=== PATIENT | female | born 1965 | race African-American/Black ===

== ENCOUNTER 2017-12-20 22:57 | Inpatient (IN) | payer OTHER ==
[2017-12-20] MEDS ORDERED: NACL 0.9% 1000 ML 1,000 ML ONE (23:12)
[2017-12-20] MEDS ORDERED: NACL 0.9% 500 ML 500 ML IV ONE (23:31)
[2017-12-20 23:45] LABS: Hematocrit 34.2 % (30.3-42.9); Hemoglobin 11.3 gm/dl (10.1-14.3); Mean Corpuscular HGB Conc 33 % (30-34); Mean Corpuscular Volume 78 fl (79-97); Red Blood Count 4.42 M/mm3 (3.65-5.03); Red Cell Distribution Width 15.7 % (13.2-15.2)
[2017-12-20 23:47] LABS: Mean Corpuscular Hemoglobin 26 pg (28-32); Platelet Count 77 K/mm3 (140-440)
[2017-12-20 23:55] LABS: INR 1.45 (0.87-1.13)
--- NOTE | 2017-12-20 23:58 | Emergency Department Report ---
ED General Adult HPI - General Chief complaint: Hyperglycemia Stated complaint: HBS Time Seen by Provider: 12/20/17 23:56 Source: patient, family, EMS Mode of arrival: Stretcher Limitations: Language Barrier, Altered Mental Status - History of Present Illness Initial comments: 52-year-old woman is brought in by family for feeling weak over the past day or so, with significant history of having nausea vomiting and profuse diarrhea over the past day or so. She is found to be hypotensive at intake, and was brought back for rapid fluid resuscitation, but on further questioning during resuscitation efforts, patient, although , it is translated by family members, who report that she has not had any significant pain, but they felt that she was feverish for the past couple of days, with the nausea and vomiting. She has been trying to rehydrate with Pedialyte, but has been throwing much of this up as well area she has not vomited any blood, she has no melena, and no hematochezia either. Past medical history is significant primarily for type 2 diabetes, controlled with oral medication metformin, and hypertension, with treatment with losartan, and on questioning, family reports that she takes her losartan every day, including today. She has no significant gastrointestinal history, and no recent surgeries. Onset/Timin -: days(s) Severity scale (0 -10): 0 - Related Data Allergies Allergy/AdvReac Type Severity Reaction Status Date / Time No Known Allergies Allergy Unverified 12/20/17 23:19 ED Review of Systems ROS: Stated complaint: HBS Other details as noted in HPI Comment: All other systems reviewed and negative Constitutional: fever, malaise, weakness. denies: chills ENT: denies: ear pain, throat pain Respiratory: denies: cough, shortness of breath, wheezing Cardiovascular: denies: chest pain, palpitations Endocrine: no symptoms reported Gastrointestinal: nausea, vomiting, diarrhea. denies: hematemesis, melena, hematochezia Genitourinary: denies: urgency, dysuria, discharge Musculoskeletal: denies: back pain, joint swelling, arthralgia Skin: lesions (chronic, secondary to diabetes). denies: rash Neurological: weakness. denies: numbness, paresthesias, confusion Psychiatric: denies: anxiety, depression Hematological/Lymphatic: denies: easy bleeding, easy bruising ED Past Medical Hx - Past Medical History Previous Medical History?: Yes Hx Hypertension: Yes Hx Diabetes: Yes (takes metformin) Hx Renal Disease: Yes (Renal issues?) - Surgical History Past Surgical History?: No - Social History Smoking Status: Never Smoker ED Physical Exam - General Limitations: Language Barrier, Altered Mental Status General appearance: other (significantly hypotensive, but awake and responsive,) - Head Head exam: Present: atraumatic, normocephalic - Eye Eye exam: Present: PERRL, EOMI - ENT ENT exam: Present: normal exam - Neck Neck exam: Present: normal inspection, other (no JVD). Absent: tenderness, meningismus, full ROM - Respiratory Respiratory exam: Present: normal lung sounds bilaterally. Absent: respiratory distress - Cardiovascular Cardiovascular Exam: Present: regular rate, normal rhythm. Absent: systolic murmur, diastolic murmur, rubs, gallop - GI/Abdominal GI/Abdominal exam: Present: soft, normal bowel sounds. Absent: distended, tenderness, guarding, rebound - Rectal Rectal exam: Present: deferred - Extremities Exam Extremities exam: Present: normal inspection, full ROM. Absent: tenderness - Neurological Exam Neurological exam: Present: alert, oriented X3, CN II-XII intact. Absent: motor sensory deficit - Psychiatric Psychiatric exam: Present: normal affect, normal mood - Skin Skin exam: Present: dry, rash (chronic skin changes typical of diabetes mellitus ). Absent: erythema, pallor, abrasion, ecchymosis ED Course Vital Signs 12/20/17 12/20/17 12/20/17 23:22 23:30 23:45 Temperature 99.8 F H Temperature [ Intra-Procedure ] Temperature [ Pre-Procedure] Pulse Rate 105 H 105 H 105 H Pulse Rate [ Intra-Procedure ] Pulse Rate [Pre -Procedure] Respiratory 18 18 18 Rate Respiratory Rate [Intra- Procedure] Respiratory Rate [Pre- Procedure] Blood Pressure 59/38 Blood Pressure [Intra- Procedure] Blood Pressure 60/38 62/36 [Left] Blood Pressure [Pre-Procedure] O2 Sat by Pulse 97 99 99 Oximetry O2 Sat by Pulse Oximetry [ Intra-Procedure ] O2 Sat by Pulse Oximetry [Pre- Procedure] 12/20/17 12/21/17 12/21/17 23:57 00:00 00:15 Temperature Temperature [ Intra-Procedure ] Temperature [ Pre-Procedure] Pulse Rate 99 H 98 H 94 H Pulse Rate [ Intra-Procedure ] Pulse Rate [Pre -Procedure] Respiratory 23 15 18 Rate Respiratory Rate [Intra- Procedure] Respiratory Rate [Pre- Procedure] Blood Pressure 62/36 62/36 59/37 Blood Pressure [Intra- Procedure] Blood Pressure 54/33 70/37 [Left] Blood Pressure [Pre-Procedure] O2 Sat by Pulse 100 99 99 Oximetry O2 Sat by Pulse Oximetry [ Intra-Procedure ] O2 Sat by Pulse Oximetry [Pre- Procedure] 12/21/17 12/21/17 12/21/17 00:30 00:45 00:57 Temperature Temperature [ Intra-Procedure ] Temperature [ Pre-Procedure] Pulse Rate 92 H 101 H Pulse Rate [ Intra-Procedure ] Pulse Rate [Pre -Procedure] Respiratory 19 19 20 Rate Respiratory Rate [Intra- Procedure] Respiratory Rate [Pre- Procedure] Blood Pressure 56/35 74/42 Blood Pressure [Intra- Procedure] Blood Pressure 58/36 [Left] Blood Pressure [Pre-Procedure] O2 Sat by Pulse 100 99 99 Oximetry O2 Sat by Pulse Oximetry [ Intra-Procedure ] O2 Sat by Pulse Oximetry [Pre- Procedure] 12/21/17 12/21/17 12/21/17 01:00 01:15 01:30 Temperature Temperature [ Intra-Procedure ] Temperature [ Pre-Procedure] Pulse Rate 99 H 96 H 98 H Pulse Rate [ Intra-Procedure ] Pulse Rate [Pre -Procedure] Respiratory 19 15 11 L Rate Respiratory Rate [Intra- Procedure] Respiratory Rate [Pre- Procedure] Blood Pressure 72/43 68/42 77/42 Blood Pressure [Intra- Procedure] Blood Pressure [Left] Blood Pressure [Pre-Procedure] O2 Sat by Pulse 100 99 100 Oximetry O2 Sat by Pulse Oximetry [ Intra-Procedure ] O2 Sat by Pulse Oximetry [Pre- Procedure] 12/21/17 12/21/17 12/21/17 01:45 02:50 02:57 Temperature Temperature [ 97.8 F Intra-Procedure ] Temperature [ 97.8 F Pre-Procedure] Pulse Rate 97 H Pulse Rate [ 109 H Intra-Procedure ] Pulse Rate [Pre 111 H -Procedure] Respiratory 16 Rate Respiratory 20 Rate [Intra- Procedure] Respiratory 20 Rate [Pre- Procedure] Blood Pressure 73/41 Blood Pressure 85/58 [Intra- Procedure] Blood Pressure [Left] Blood Pressure 82/59 [Pre-Procedure] O2 Sat by Pulse 98 Oximetry O2 Sat by Pulse 100 Oximetry [ Intra-Procedure ] O2 Sat by Pulse 100 Oximetry [Pre- Procedure] 12/21/17 12/21/17 03:03 03:05 Temperature Temperature [ 97.8 F 97.8 F Intra-Procedure ] Temperature [ Pre-Procedure] Pulse Rate Pulse Rate [ 112 H 112 H Intra-Procedure ] Pulse Rate [Pre -Procedure] Respiratory Rate Respiratory 20 20 Rate [Intra- Procedure] Respiratory Rate [Pre- Procedure] Blood Pressure Blood Pressure 92/49 92/49 [Intra- Procedure] Blood Pressure [Left] Blood Pressure [Pre-Procedure] O2 Sat by Pulse Oximetry O2 Sat by Pulse 100 100 Oximetry [ Intra-Procedure ] O2 Sat by Pulse Oximetry [Pre- Procedure] - Reevaluation(s) Reevaluation #1: 12/21/17 03:15 Patient required pressure support as 2 L of saline did not produce any significant improvement of blood pressure, stays in the 77-85 range systolic. Levothroid initiated. Blood cultures drawn, Reevaluation #2: 12/21/17 03:15 Patient is significantly hyperglycemic, but pH is presently stable at 7.3. - Consultations Consultation #1: 12/21/17 03:15 Dr. Wright, hospitalist information security engineer, contacted for patient with uncontrolled hyperglycemia, significant lactic acidosis, and persistent hypotension requiring pressor support. - Central Line Placement Right IJ Consent Obtained: verbal consent Time Out Performed: Yes Patient Placed on Monitor/Pulse Ox: Yes Prep: mask, gown, gloves Central Line Prep: Chlorhexidine scrub Local Anesthesia Used: Lidocaine 1% Amount of Anesthesia Used (mls): 5 Ultrasound Used for Placement: Yes Central Line Lumen Inserted: triple Bloods Obtained for Lab: Yes Central Line Position: sutured in place with 3-0, other (cardiac 2 tries, inadvertent arterial stick on first attempt, treated with pressure) Dressing Applied: Tegaderm Post Procedure X-Ray: tip of catheter in good p Patient Tolerated Procedure: no complications Complications: none, arterial puncture/cannula (with first attempt), hemothorax Additional Comments: Patient tolerated procedure well. ED Medical Decision Making - Lab Data Result diagrams: 12/20/17 23:35 12/21/17 01:11 - Medical Decision Making Patient has severe dehydration, severe and persistent hypotension requiring pressor support, triple-lumen central line placement, and with severe hyperglycemia, requiring insulin drip to control patient's glucose metabolism. - Differential Diagnosis diabetic ketoacidosis, uncontrolled hyperglycemia, severe dehydration, seps Critical Care Time: Yes Critical care time in (mins) excluding proc time.: 75 Critical care attestation.: If time is entered above; I have spent that time in minutes in the direct care of this critically ill patient, excluding procedure time. Critical Care Time: 75 minutes of critical care time was provided and managing patient's severe and persistent hypotension, requiring pressor support, as well as uncontrolled hyperglycemia, independent of the 20 minutes required for placement of right internal jugular triple-lumen central line catheter. ED Disposition Clinical Impression: Diabetic ketoacidosis, Hypotension arterial, Dehydration, Nausea vomiting and diarrhea Disposition: OP ADMIT IP TO THIS HOSP Is pt being admited?: Yes Does the pt Need Aspirin: No Condition: Stable Time of Disposition: 01:30
[2017-12-21 00:01] LABS: Albumin 2.6 g/dL (3.9-5)
[2017-12-21] MEDS ORDERED: NACL 0.9% 1000 ML 1,000 ML ONE ×3 (00:02→04:00)
[2017-12-21] MEDS ORDERED: LEVOPHED DRIP 4 MG/NS 250 ML 4 MG/250 ML BAG IV ONE (00:27)
[2017-12-21] MEDS ORDERED: ZOFRAN ONE (00:27)
[2017-12-21 00:40] LABS: Band Neutrophils # (Manual) 1.4 K/mm3; Basophils % (Manual) 0 % (0.0-1.8); Eosinophils % (Manual) 0 % (0.0-4.3); Myelocytes # (Manual) 0.3 K/mm3; Platelet Estimate Appears Decreased; Total Cells Counted 100
[2017-12-21 00:41] LABS: Hypochromasia 1+
[2017-12-21] MEDS ORDERED: NACL 0.9% 1000 ML 1,000 ML IV ONE ×2 (00:42→00:43)
[2017-12-21] MEDS ORDERED: ZOFRAN IV ONE (00:44)
[2017-12-21] MEDS ORDERED: D50W (25GM) Syringe IV PRN (00:44)
[2017-12-21] MEDS ORDERED: HumuLIN R 100 UNITS in NACL 0.9% 99 ML IV SCH (01:00)
[2017-12-21] MEDS ORDERED: LEVOPHED DRIP 4 MG/NS 250 ML 4 MG/250 ML BAG IV SCH (01:00)
[2017-12-21 01:37] LABS: Calcium 6.4 mg/dL (8.4-10.2)
[2017-12-21] MEDS ORDERED: NACL 0.9% 1000 ML 2,000 ML IV ONE (01:38)
[2017-12-21] MEDS ORDERED: TYLENOL PO PRN (01:58)
[2017-12-21] MEDS ORDERED: TYLENOL PR PRN (01:58)
[2017-12-21] MEDS ORDERED: SODIUM CHLORIDE FLUSH SYRINGE 10 ML IV PRN (01:58)
[2017-12-21] MEDS ORDERED: VANCOMYCIN PHARMACY TO DOSE IV SCH (02:00)
[2017-12-21] MEDS ORDERED: ZOSYN/NS 3.375GM/50ML 3.375 GM/50 ML BAG IV SCH (02:00)
[2017-12-21] MEDS ORDERED: VANCOMYCIN/NS 1 GM/250 ML 1 GM/250 ML BAG IV SCH (02:00)
[2017-12-21] MEDS ORDERED: NACL 0.9% 1000 ML 1,000 ML IV SCH (02:00)
--- NOTE | 2017-12-21 02:00 | History and Physical Report ---
History of Present Illness Date of examination: 12/21/17 History of present illness: 52-year-old woman with a history of hypertension, diabetes comes to emergency room with complaints of fever, nausea vomiting and diarrhea that started yesterday. She's had 4 episodes of diarrhea today, stool is less watery. She also complained of abdominal pain on the left lower quadrant and lower back pain which she describes as sharp pain, intermittent in nature and lasted for a few seconds, intensity 6/10, no radiation, she cannot identify exacerbating or relieving factor. Sons at bedside are translators. The patient took that one dose of antibiotic this morning, she does not know the name of the antibiotic Review of systems Constitutional: no weight loss, chills Ears, eyes, nose, mouth and throat: no nasal congestion, no nasal discharge, no sinus pressure, no vision change, no red eye. Neck: No neck pain or rigidity. Cardiovascular: no chest pain, palpitations Respiratory: No cough, shortness of breath Gastrointestinal: no hematochezia Genitourinary : no dysuria, frequency , no hematuria Musculoskeletal: no joint swelling or muscle ache Integumentary: no rash, no pruritis Neurological: no parathesias, no numbness, no focal weakness Endocrine: no cold or heat intolerance, no polyuria or polydipsia Hematologic/Lymphatic: no easy bruising, no easy bleeding, no gland swelling Allergic/Immunologic: no urticaria, no angioedema. PAST MEDICAL HISTORY: hypertension, diabetes PAST SURGICAL HISTORY: None SOCIAL HISTORY: Denies tobacco, alcohol, drugs FAMILY HISTORY: Hypertension, diabetes Medications and Allergies Allergies Allergy/AdvReac Type Severity Reaction Status Date / Time No Known Allergies Allergy Unverified 12/20/17 23:19 Home Medications Medication Instructions Recorded Confirmed Last Taken Type Losartan/Hydrochlorothiazide 1 each PO DAILY 12/21/17 12/21/17 Unknown History [Losartan-Hctz 50-12.5 mg Tab] glipiZIDE [Glipizide] 5 mg PO BID 12/21/17 12/21/17 Unknown History metFORMIN [Glucophage] 500 mg PO BID 12/21/17 12/21/17 Unknown History Active Meds: Active Medications Dextrose (D50w (25gm) Syringe) 0 ml IV ONCE PRN PRN Reason: Hypoglycemia Norepinephrine (Levophed Drip 4 Mg/Ns 250 Ml) 4 mg in 250 mls @ 7.5 mls/hr IV TITR LO; Protocol Insulin Human Regular 100 (units/ Sodium Chloride) 100 mls @ 1 mls/hr IV TITR LO; Protocol Piperacillin Sod/Tazobactam Sod (Zosyn/Ns 3.375gm/50ml) 3.375 gm in 50 mls @ 100 mls/hr IV Q8H LO; Protocol Sodium Chloride (Nacl 0.9% 1000 Ml) 2,000 mls @ 999 mls/hr IV BOLUS ONE Stop: 12/21/17 03:38 Vancomycin HCl (Vancomycin/Ns 1 Gm/250 Ml) 1 gm in 250 mls @ 167.007 mls/hr IV ONCE LO; Protocol Vancomycin HCl (Vancomycin Pharmacy To Dose) 1 each IV PKCONSULT LO Exam - Physical Exam Narrative exam: Gen. appearance: Patient lying in bed, no apparent distress HEENT: Normocephalic, atraumatic, pupils equally round and reactive to light, extraocular movement intact, and no sclericterus,. No JVD or thyromegaly or nodule,neck supple, no carotid bruit ,mucous membranes dry, no exudate or erythema Heart: S1, S2, regular rate and rhythm Lungs: Clear to auscultation bilaterally, breathing comfortable Abdomen: Positive bowel sounds, nontender, nondistended, no organomegaly Extremity: No edema, cyanosis, clubbing Skin: No rash, nodules, warm, dry Neuro: Oriented 3, cranial nerves II-12 intact, speech is fluent, motor and sensory intact - Constitutional Vitals: Temp Pulse Resp BP Pulse Ox 99.8 F H 97 H 16 73/41 98 12/20/17 23:22 12/21/17 01:45 12/21/17 01:45 12/21/17 01:45 12/21/17 01:45 Results - Labs CBC & Chem 7: 12/30/17 05:30 12/30/17 05:30 Labs: Abnormal lab results 12/20/17 12/20/17 12/20/17 Range/Units 23:35 23:35 23:35 MCV 78 L (79-97) fl MCH 26 L (28-32) pg RDW 15.7 H (13.2-15.2) % Plt Count 77 L (140-440) K/mm3 Seg Neuts % (Manual) 76.0 H (40.0-70.0) % Lymphocytes % (Manual) 6.0 L (13.4-35.0) % Seg Neutrophils # Man 8.2 H (1.8-7.7) K/mm3 Lymphocytes # (Manual) 0.6 L (1.2-5.4) K/mm3 PT 18.5 H (12.2-14.9) Sec. INR 1.45 H (0.87-1.13) Sodium 130 L (137-145) mmol/L Potassium 3.5 L (3.6-5.0) mmol/L Chloride 92.3 L (98-107) mmol/L Carbon Dioxide 17 L (22-30) mmol/L BUN 27 H (7-17) mg/dL Creatinine 2.2 H (0.7-1.2) mg/dL Glucose 535 H* (65-100) mg/dL Lactic Acid (0.7-2.0) mmol/L Calcium 7.0 L (8.4-10.2) mg/dL Phosphorus (2.5-4.5) mg/dL Magnesium (1.7-2.3) mg/dL Alkaline Phosphatase 173 H (35-129) units/L Total Protein 5.1 L (6.3-8.2) g/dL Albumin 2.6 L (3.9-5) g/dL 18 18 /18 Range/Units 23:35 01:11 01:11 MCV (79-97) fl MCH (28-32) pg RDW (13.2-15.2) % Plt Count (140-440) K/mm3 Seg Neuts % (Manual) (40.0-70.0) % Lymphocytes % (Manual) (13.4-35.0) % Seg Neutrophils # Man (1.8-7.7) K/mm3 Lymphocytes # (Manual) (1.2-5.4) K/mm3 PT (12.2-14.9) Sec. INR (0.87-1.13) Sodium 133 L (137-145) mmol/L Potassium 3.3 L (3.6-5.0) mmol/L Chloride 97.9 L (98-107) mmol/L Carbon Dioxide 15 L (22-30) mmol/L BUN 26 H (7-17) mg/dL Creatinine 2.1 H (0.7-1.2) mg/dL Glucose (65-100) mg/dL Lactic Acid 8.30 H* (0.7-2.0) mmol/L Calcium 6.4 L (8.4-10.2) mg/dL Phosphorus 1.90 L (2.5-4.5) mg/dL Magnesium 1.30 L (1.7-2.3) mg/dL Alkaline Phosphatase (35-129) units/L Total Protein (6.3-8.2) g/dL Albumin (3.9-5) g/dL - Imaging and Cardiology EKG: image reviewed Chest x-ray: image reviewed Assessment and Plan Assessment Septic shock Abdominal pain DKA UTI Renal failure, probably acute Gastroenteritis, viral Thrombocytopenia Plan Admit to medicine Start IV fluid, IV Zosyn, vancomycin, follow cultures Obtain CAT scan of the abdomen and pelvis Initiated DKA protocol with IV fluids, insulin drip Monitor serial fingerstick, electrolyte Check stool studies Consult critical care DVT prophylaxis
[2017-12-21 02:32] LABS: Bacteria,Urine 2+ /HPF (Negative); Bilirubin,Urine NEG (Negative); Blood,Urine NEG (Negative); Color,Urine Yellow (Yellow); Protein,Urine <15 mg/dL mg/dL (Negative); Urobilinogen,Urine < 2.0 mg/dL (<2.0)
[2017-12-21] MEDS ORDERED: VANCOMYCIN 1,250 MG in NACL 0.9% 250ML 250 ML IV ONE (03:00)
[2017-12-21] MEDS ORDERED: K-DUR PO ONE (04:43)
[2017-12-21] MEDS ORDERED: D5/0.45NS 1,000 ML IV SCH ×2 (05:00→23:45)
[2017-12-21] MEDS: LEVOPHED DRIP 4 MG/NS 250 ML 4 MG/250 ML BAG IV SCH ×4 (08:17→23:42)
[2017-12-21 09:20] LABS: Calcium 6.2 mg/dL (8.4-10.2)
[2017-12-21] MEDS: ZOFRAN IV PRN ×2 (09:21→17:35)
[2017-12-21] MEDS: SODIUM CHLORIDE FLUSH SYRINGE 10 ML IV SCH ×3 (09:21→21:27)
[2017-12-21] MEDS ORDERED: MAGNESIUM SULFATE IV ONE (09:30)
[2017-12-21] MEDS: MORPHINE IV PRN (09:45)
[2017-12-21] MEDS ORDERED: LOVENOX SUB-Q SCH (10:00)
--- NOTE | 2017-12-21 10:38 | Consultation ---
History of Present Illness Consult date: 12/21/17 Requesting physician: SHELBY STILES Reason for consult: other (Severe Sepsis; DKA; Thrombocytopenia) History of present illness: PULMONARY/CCM CONSULT NOTE (full dictation # [id number]) Please see dictated notes for full details Medications and Allergies Allergies Allergy/AdvReac Type Severity Reaction Status Date / Time No Known Allergies Allergy Unverified 12/20/17 23:19 Home Medications Medication Instructions Recorded Confirmed Last Taken Type Losartan/Hydrochlorothiazide 1 each PO DAILY 12/21/17 12/21/17 Unknown History [Losartan-Hctz 50-12.5 mg Tab] glipiZIDE [Glipizide] 5 mg PO BID 12/21/17 12/21/17 Unknown History metFORMIN [Glucophage] 500 mg PO BID 12/21/17 12/21/17 Unknown History Active Meds: Active Medications Acetaminophen (Tylenol) 650 mg PO Q4H PRN PRN Reason: Pain MILD(1-3)/Fever >100.5/CHAVEZ Acetaminophen (Tylenol) 650 mg IN Q4H PRN PRN Reason: Pain MILD(1-3)/Fever >100.5/CHAVEZ Dextrose (D50w (25gm) Syringe) 0 ml IV ONCE PRN PRN Reason: Hypoglycemia Norepinephrine (Levophed Drip 4 Mg/Ns 250 Ml) 4 mg in 250 mls @ 7.5 mls/hr IV TITR LO; Protocol Last Titration: 12/21/17 10:18 Dose: 14 mcg/min, 52.5 mls/hr Insulin Human Regular 100 (units/ Sodium Chloride) 100 mls @ 1 mls/hr IV TITR LO; Protocol Last Titration: 12/21/17 10:20 Dose: 2 units/hr, 2 mls/hr Sodium Chloride (Nacl 0.9% 1000 Ml) 1,000 mls @ 150 mls/hr IV DIRECT LO Last Admin: 12/21/17 04:03 Dose: 150 mls/hr Dextrose/Sodium Chloride (D5/0.45ns) 1,000 mls @ 150 mls/hr IV DIRECT LO Piperacillin Sod/Tazobactam Sod (Zosyn/Ns 2.25 Gm/50ml) 2.25 gm in 50 mls @ 100 mls/hr IV Q6HR LO Magnesium Sulfate (Magnesium Sulfate 2gm/50ml) 2 gm in 50 mls @ 25 mls/hr IV ONCE ONE Stop: 12/21/17 12:59 Last Admin: 12/21/17 10:31 Dose: 25 mls/hr Potassium Chloride 20 meq/ (Dextrose) 1,010 mls @ 125 mls/hr IV DIRECT LO Morphine Sulfate (Morphine) 2 mg IV Q4H PRN PRN Reason: Pain, Moderate (4-6) Ondansetron HCl (Zofran) 4 mg IV Q4H PRN PRN Reason: Nausea And Vomiting Last Admin: 12/21/17 09:21 Dose: 4 mg Sodium Chloride (Sodium Chloride Flush Syringe 10 Ml) 10 ml IV BID LO Last Admin: 12/21/17 09:21 Dose: 10 ml Sodium Chloride (Sodium Chloride Flush Syringe 10 Ml) 10 ml IV PRN PRN PRN Reason: LINE FLUSH Vancomycin HCl (Vancomycin Pharmacy To Dose) 1 each IV PKCONSULT LO Physical Examination Vital signs: Vital Signs Temp Pulse Resp BP Pulse Ox 99.8 F H 105 H 18 59/38 97 12/20/17 23:22 12/20/17 23:22 12/20/17 23:22 12/20/17 23:22 12/20/17 23:22 Results - Laboratory Findings CBC and BMP: 12/20/17 23:35 12/21/17 08:44 PT/INR, D-dimer PT 18.5 Sec. (12.2-14.9) H 12/20/17 23:35 INR 1.45 (0.87-1.13) H 12/20/17 23:35 Abnormal lab findings: Abnormal Labs 12/20/17 12/20/17 12/20/17 23:35 23:35 23:35 MCV 78 L MCH 26 L RDW 15.7 H Plt Count 77 L Seg Neuts % (Manual) 76.0 H Lymphocytes % (Manual) 6.0 L Seg Neutrophils # Man 8.2 H Lymphocytes # (Manual) 0.6 L PT 18.5 H INR 1.45 H Sodium 130 L Potassium 3.5 L Chloride 92.3 L Carbon Dioxide 17 L BUN 27 H Creatinine 2.2 H Glucose 535 H* POC Glucose Lactic Acid Calcium 7.0 L Phosphorus Magnesium Alkaline Phosphatase 173 H Total Protein 5.1 L Albumin 2.6 L Urine WBC (Auto) 12/20/17 12/21/17 12/21/17 23:35 01:11 01:11 MCV MCH RDW Plt Count Seg Neuts % (Manual) Lymphocytes % (Manual) Seg Neutrophils # Man Lymphocytes # (Manual) PT INR Sodium Potassium Chloride Carbon Dioxide BUN Creatinine Glucose POC Glucose Lactic Acid 8.30 H* 8.10 H* Calcium Phosphorus 1.90 L Magnesium 1.30 L Alkaline Phosphatase Total Protein Albumin Urine WBC (Auto) 12/21/17 12/21/17 12/21/17 01:11 01:50 02:09 MCV MCH RDW Plt Count Seg Neuts % (Manual) Lymphocytes % (Manual) Seg Neutrophils # Man Lymphocytes # (Manual) PT INR Sodium 133 L Potassium 3.3 L Chloride 97.9 L Carbon Dioxide 15 L BUN 26 H Creatinine 2.1 H Glucose 504 H* POC Glucose 391 H Lactic Acid Calcium 6.4 L Phosphorus Magnesium Alkaline Phosphatase Total Protein Albumin Urine WBC (Auto) 38.0 H 12/21/17 12/21/17 12/21/17 03:10 03:26 05:15 MCV MCH RDW Plt Count Seg Neuts % (Manual) Lymphocytes % (Manual) Seg Neutrophils # Man Lymphocytes # (Manual) PT INR Sodium 135 L Potassium 3.3 L Chloride Carbon Dioxide 14 L BUN 25 H Creatinine 1.9 H Glucose 443 H POC Glucose 389 H 407 H Lactic Acid Calcium 6.0 L Phosphorus Magnesium Alkaline Phosphatase Total Protein Albumin Urine WBC (Auto) 12/21/17 12/21/17 12/21/17 06:00 06:00 08:44 MCV MCH RDW Plt Count Seg Neuts % (Manual) Lymphocytes % (Manual) Seg Neutrophils # Man Lymphocytes # (Manual) PT INR Sodium Potassium 3.4 L 3.3 L Chloride 107.8 H Carbon Dioxide 12 L 14 L BUN 28 H 29 H Creatinine 1.9 H 2.0 H Glucose 283 H 140 H POC Glucose Lactic Acid 7.90 H* Calcium 6.0 L 6.2 L Phosphorus Magnesium Alkaline Phosphatase Total Protein Albumin Urine WBC (Auto) 12/21/17 08:44 MCV MCH RDW Plt Count Seg Neuts % (Manual) Lymphocytes % (Manual) Seg Neutrophils # Man Lymphocytes # (Manual) PT INR Sodium Potassium Chloride Carbon Dioxide BUN Creatinine Glucose POC Glucose Lactic Acid 6.40 H* Calcium Phosphorus Magnesium Alkaline Phosphatase Total Protein Albumin Urine WBC (Auto)
[2017-12-21] MEDS ORDERED: MAGNESIUM SULFATE 2GM/50ML 2 GM/50 ML BAG IV ONE (11:00)
[2017-12-21] MEDS ORDERED: PEPCID IV SCH (12:00)
[2017-12-21] MEDS ORDERED: KCL 20 MEQ in D5W 1,000 ML IV SCH (12:30)
[2017-12-21 12:54] LABS: Hepatitis A Antibody IgM Non-Reactive (NonReactive); Hepatitis B Core IgM Non-Reactive (NonReactive); Hepatitis B Surface Antigen Non-Reactive (Negative); Hepatitis C Virus Antibody Non-Reactive (NonReactive)
[2017-12-21] MEDS: ZOSYN/NS 2.25 GM/50ML 2.25 GM/50 ML BAG IV SCH ×2 (13:49→18:29)
--- NOTE | 2017-12-21 14:03 | Cat Scan Report ---
FINAL REPORT PROCEDURE: CT ABDOMEN PELVIS WO CON TECHNIQUE: Computerized axial tomography of the abdomen and pelvis was performed without intravenous contrast. This study is performed without intravascular contrast material and its sensitivity for abdominal and pelvic pathology, including neoplasms, inflammation, abscess, free fluid, thrombosis, arterial dissection and infarction, is reduced compared with a contrast enhanced study. HISTORY: back/abd pain COMPARISON: No prior studies are available for comparison. FINDINGS: Visualized lower thorax: There are bibasilar infiltrates. There are small pleural effusions. Liver: Liver is enlarged and fatty.. Spleen: Normal size and attenuation. Gallbladder and biliary system: Normal. Pancreas: Normal. Adrenals: Normal. Kidneys: The right kidney and ureter are unremarkable. There is left hydronephrosis and hydroureter. There is air in the left ureter and left renal collecting system. This could be evidence of infection. No stones are seen.. GI tract: There is no bowel obstruction, colitis or enteritis. The appendix is normal.. Lymph nodes and mesentery: Normal. Vasculature: Normal. Bladder: Normal. Reproductive organs: Uterus and ovaries are unremarkable.. Peritoneum: There is mild ascites. There is no free air.. Musculoskeletal structures: No significant abnormality. Other: There are borderline enlarged mesenteric and retroperitoneal lymph nodes. There are enlarged inguinal lymph nodes greater on the right. IMPRESSION: There are bibasilar infiltrates. There are small pleural effusions. Liver is enlarged and fatty.. The right kidney and ureter are unremarkable. There is left hydronephrosis and hydroureter. There is air in the left ureter and left renal collecting system. This could be evidence of infection. No stones are seen.. There is no bowel obstruction, colitis or enteritis. The appendix is normal.. Uterus and ovaries are unremarkable.. There is mild ascites. There is no free air.. There are borderline enlarged mesenteric and retroperitoneal lymph nodes. There are enlarged inguinal lymph nodes greater on the right. .
--- NOTE | 2017-12-21 14:03 | XRay Report ---
FINAL REPORT EXAM: XRAY CHEST SINGLE VIEW HISTORY: Post central line placement COMPARISON: December 20, 2017. FINDINGS: Frontal view(s) of the chest obtained. Stable mild cardiac enlargement. Right IJ line is in place. Distal tip projects over the junction of the SVC and right atrium in satisfactory position. No focal lucency to suggest pneumothorax. Mild central prominence of the pulmonary vasculature. No large consolidation or effusion. IMPRESSION: Right IJ line in gross satisfactory position. Mild central congestion.
--- NOTE | 2017-12-21 14:04 | XRay Report ---
FINAL REPORT EXAM: XRAY CHEST SINGLE VIEW HISTORY: Possible sepsis TECHNIQUE: Single AP portable radiograph of the chest was obtained. PRIORS: None. FINDINGS: There is no lobar consolidation. Subtle left cardiac opacities are present. No large pleural effusion. No pneumothorax. Cardiac silhouette and mediastinal structures are unremarkable. No acute osseous abnormality identified. IMPRESSION: Subtle left retrocardiac opacities which may represent atelectasis or early infiltrate. Consider PA/lateral chest radiographs if clinical concern. No lobar consolidation, pleural effusion or evidence of congestive heart failure.
[2017-12-21 14:25] LABS: Creatine Kinase MB 3.9 ng/mL (0.0-4.0)
[2017-12-21 14:37] LABS: Chol/HDL Ratio 5.7 %
--- NOTE | 2017-12-21 16:05 | Event Note ---
Date: 12/21/[address] scan. 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 No emphysematous pyelonephritis. No calculi. Emphysematous urinary conditions are highly associated with poorly controlled diabetes. Patient is improving, but still critically ill. Usually emphysematous pyelitis can be treated with broad spectrum antibiotics, amin placement, and control of underlying diabetes. Discussed with Dr. Weber. Not optimal candidate for nephrostomy tube due to minimally distented collecting system and thrombocytopenia. In addition, emphysematous pyelitis does not usually require nephrostomy tube placement. Will follow with urology and medicine.
--- NOTE | 2017-12-21 17:17 | Event Note ---
Date: 12/21/17 Continue current treatment, discussed with IR and urology. Will place amin. Monitor cultures. Transition to long acting insulin once improved.
[2017-12-21 18:18] LABS: Calcium 6.6 mg/dL (8.4-10.2)
[2017-12-21] MEDS: PEPCID IV SCH (21:27)
[2017-12-22] MEDS: ZOSYN/NS 2.25 GM/50ML 2.25 GM/50 ML BAG IV SCH ×3 (00:06→11:20)
[2017-12-22] MEDS ORDERED: SODIUM BICARBONATE 150 MEQ in D5W 1,000 ML IV ONE (00:39)
[2017-12-22] MEDS: ZOFRAN IV PRN (01:40)
--- NOTE | 2017-12-22 02:41 | Consultation ---
PULMONARY CRITICAL CARE CONSULT NOTE CONSULTING PHYSICIAN: Lesly Wright MD. REASON FOR CONSULTATION: Essentially severe sepsis, diabetic ketoacidosis. CHIEF COMPLAINT AND HISTORY OF PRESENT ILLNESS: The patient is a 52-year-old female with past medical history significant for a diagnosis of diabetes, who was brought in by family to the Emergency Room due to increasing lethargy, weakness over about 1-2 days. She had been having nausea, vomiting and profuse diarrhea. In the ER, she was found to be hypotensive. She complained of some abdominal pain. She had some subjective fevers. They denied any hematochezia or any hematemesis. They denied any sick contacts. They denied any cough or expectoration. She was evaluated in the Emergency Room and essentially found to be septic and hypotensive. She was hyperglycemic and mildly acidotic. She was admitted to the Intensive Care Unit for further evaluation where I stopped by to see her. When I stopped by to see her, she was lying in bed. She was moaning. She was easily arousable, able to respond to my questions. She denied any history of tobacco use or abuse. She denied any dysuria. They deny any open wounds or sores on her body or any suggestion of like an infection that may have pushed her into this particular presentation. They deny any recent hospitalizations. She denies any hospitalizations recently. No sick contacts at home. She does have three kids. None of them have diarrhea or similar type symptoms. She denies any cuts or injuries to her body. This really is as much of the history of presentation as I have. PAST MEDICAL HISTORY: Diabetes, hypertension. She is slightly obese. PAST SURGICAL HISTORY: Denies. MEDICATIONS: She was on at the time I stopped by to see were reviewed, pertinent medications include the following: She was on Tylenol 650 mg p.o. q. 4 hours p.r.n. mild pain. She was on a D5 NS drip about to begin with 20 of K per liter. She was on an insulin drip, I believe 2 units per hour. She received 2 g of magnesium sulfate in the Emergency Room. She was on a Levophed drip going on 8 mcg per minute, Zofran 4 mg IV q. 4 hours p.r.n. nausea and vomiting, Zosyn 2.25 grams IV q. 6 hours. She received 1 dose of vancomycin. ALLERGIES: No known drug allergies. DIET: Slightly obese. Denies acute weight loss or gain in the preceding few weeks to months, remains n.p.o. now. FAMILY AND SOCIAL HISTORY: Significant for hypertension and diabetes. She denied alcohol, tobacco, or illicit drug use or abuse. REVIEW OF SYSTEMS: Denies any loss of consciousness. She has been very weak, but no overt syncope, no gross hematochezia or melena. No gross hematuria or dysuria. No hematemesis. No hemoptysis, no palpitations. Denies polyuria or polydipsia. Denies heat or cold intolerance. Denies any new lumps, bumps, or swellings on her body. Complete 13-system review of systems obtained. Pertinent positives and/or negatives as in body of history above, otherwise noncontributory. PHYSICAL EXAMINATION: GENERAL: At presentation, she had a low grade fever. VITAL SIGNS: Temperature 99.8 degrees Fahrenheit, pulse 105, respiratory rate 18, blood pressure was as low as 59/38, oxygen sats 97%. At the time I saw her, she was on 4 liters nasal cannula with O2 sats about 95%. Blood pressure 81/47. GENERAL: Well-built short statured, I believe, female, normocephalic, atraumatic, talking to me. Slightly interrupted sentences, moaning occasionally in mild respiratory distress. HEAD, EYES, EARS, NOSE AND THROAT: She is anicteric. No conjunctival erythema. Oropharynx is a Mallampati #2. Oropharynx is dry. Grossly, no palpable lymph nodes in the supraclavicular or submandibular lymph node chains. She has a right IJ line in place. No significant bleeding around the stoma. No thyromegaly. LUNGS: Auscultation of both lung jett significant only for diminished bilateral breath sounds, however, clear. HEART: Heart sounds 1 and 2 are heard. At the time of my evaluation, they were regular in rate and rhythm. No rubs or murmurs. ABDOMEN: Soft. Bowel sounds are positive. Mild diffuse tenderness, no palpable hepatosplenomegaly. EXTREMITIES: Without overt digital clubbing, cyanosis, or pedal edema. Dorsalis pedis pulses are palpable bilaterally. NEUROLOGIC: Pupils equal, round, about 4 mm, reactive to light. Extraocular muscle movements are intact. She moves all 4 extremities spontaneously. The skin is of normal turgor. She has macular type of rash to her skin that is longstanding according to the family, nothing acute. It is nontender. It is hyperpigmented type of rash. Not raised. Otherwise, no cellulitis, no rash. LABORATORY DATA: From my review are as follows: White cell count 10,800, hemoglobin 11.3, hematocrit 34.2, platelet count was low at 77. INR was 1.45. Serum sodium is 130, potassium 3.5, chloride 92, bicarbonate 17, BUN 27, creatinine 2.2 and a glucose of 535. Lactic acid level was 8.3 at presentation. Phosphorus low at 1.9. Magnesium low at 1.3. Albumin was low at 2.6. Urinalysis showed small leukocyte esterase, 38 white cells per high power field, 2+ bacteremia, C. diff toxin assay was negative. Blood cultures no growth to date. Stool has been sent for studies. Chest x-ray was done. I have reviewed the chest x-ray as well as a CT of the abdomen and pelvis. Chest x-ray essentially normal chest x-ray for her age, borderline cardiomegaly, no pneumothorax, no gross bony fracture. It is slightly over penetrated. A CT of the abdomen and pelvis was done. I do not have the report on the CT yet. The lung windows show dependent atelectasis plus or minus small effusions. I cannot rule out a small pericardial effusion. Otherwise, I do not see any major pathology. I certainly do not see any free air in the peritoneum and the peritoneal cavity that I can make out. I am awaiting the official report. ASSESSMENT: 1. Severe sepsis with shock. 2. Hyperglycemia and mild diabetic ketoacidosis. 3. Possible urinary tract infection. 4. Nausea and vomiting. 5. Diarrhea. 6. Metabolic acidosis. 7. Hypophosphatemia. 8. Hypomagnesemia. 9. Acute kidney injury, possibly on chronic. 10. Thrombocytopenia. PLAN: I must say that I am a little bit bothered by the thrombocytopenia, the hypomagnesemia, and slightly elevated INR. It may point to stigmata of alcohol abuse. She tells me that she is not much of a drinker, but I think we will have to keep a close eye out for any signs of alcohol withdrawal in this lady. From a respiratory standpoint, we will continue supplemental oxygen to keep sats greater than or equal to about 90%. Aspiration precautions will be maintained. There may be an element of mild interstitial edema at place, so I will watch her closely for the development of acute pulmonary edema. As mentioned, the CT abdomen suggest possibly mild pericardial effusion. We will consider a 2D echocardiogram depending on her clinical progress. For now, we will get central venous pressure monitoring and trended as necessary. Electrolytes are being replaced. She is under the DKA protocol. Azotemia will be watched closely. Hopefully, with rehydration that improves. She has been pancultured. We will continue empiric antibiotic therapy. I note the normal white cell count. I will get a CRP level to better help make clinical decisions down the road. We will also trend the lactic acid level. C. diff assay was negative. We will go with current broad-spectrum antibiotic therapies for now. Inputs and outputs will be monitored closely. Bronchodilators will be on a p.r.n. basis. Flu and pneumonia vaccinations will be addressed per protocol. We will continue to wean Levophed to keep MAP greater than or equal to about 65 mmHg. Again, I will conservatively resuscitate her with volume as I am bothered that she may develop some pulmonary edema. I expect the BMP level probably be raised, elevated at this time. Flu and pneumonia vaccination will be per protocol. Thank you very much for the consult Dr. Wright. We will follow along. We will make further recommendations as picture progresses/becomes clearer. At this time, I have spent about 35-40 minutes of critical care time without overlap and excluding any procedural time that may be necessary. She is critically ill on life-sustaining interventions including vasopressors and at high risk for decompensation in the respiratory and cardiovascular system including . JOB# [id number] NIKIA/DERRICK MORGAN
[2017-12-22] MEDS: LEVOPHED DRIP 4 MG/NS 250 ML 4 MG/250 ML BAG IV SCH ×5 (03:36→20:24)
[2017-12-22 04:58] LABS: Hematocrit 35.1 % (30.3-42.9); Hemoglobin 11.4 gm/dl (10.1-14.3); Mean Corpuscular HGB Conc 32 % (30-34); Mean Corpuscular Volume 77 fl (79-97); Red Blood Count 4.56 M/mm3 (3.65-5.03); Red Cell Distribution Width 16.6 % (13.2-15.2)
[2017-12-22 05:22] LABS: Mean Corpuscular Hemoglobin 25 pg (28-32); Platelet Count 57 K/mm3 (140-440)
[2017-12-22 05:48] LABS: Calcium 6.4 mg/dL (8.4-10.2)
--- NOTE | 2017-12-22 08:15 | Progress Note ---
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 MARLENE Left Hydronephrosis Fatty Liver Skin rash Acute encephalopathy Gastroenteritis, viral Thrombocytopenia -NIPPV for work of breathing and for adjustment of minute ventilation for better acid-base -Continue with vasopressor support, keep MAP>65 -Add gram negative edilia coverage to therapy -VTE prophylaxis -Supplemental oxygen to keep O2 sats>90% -Agitation management -Accucheck with glycemic control -Insulin infusion and DKA treatment per protocol -Addressed all critical care bundles Discussed in detail with the at the bedside The high probability of a clinically significant, sudden or life threatening deterioration of the [pulmonary, Renal, infectious, cardiovascular ] system(s) required my full and direct attention, intervention and personal management. The aggregate critical care time was [35] minutes. This time is in addition to time spent performing reported procedures but includes the following: [X] Data Review and interpretation [X] Patient assessment and monitoring of vital signs [X] Documentation [X] Medication orders and management Subjective Date of service: 12/22/17 Principal diagnosis: Severe sepsis wwith septic shock, acute encephalopathy, Interval history: Seen and examined. Vitals, labs, medications, chart reviewed, at the bedside On going confusion, tachypnea and severe acidosis. 24 hour events reviewed. Discussed in ICU-IDT rounds Objective - Exam Narrative Exam: VITAL SIGNS: Reviewed. GENERAL: The patient appeared well nourished and normally developed although was lethargic. Vital signs as documented. HEAD: No signs of head trauma. EYES: Pupils are equal. Extraocular motions intact. EARS: Hearing grossly intact. MOUTH: Oropharynx is normal. NECK: No adenopathy, no JVD. CHEST: Chest with diminished breath sounds bilaterally. No wheezes, rales, or rhonchi. CARDIAC: Regular rate and rhythm. S1 and S2, without murmurs, gallops, or rubs. VASCULAR: No Edema. Peripheral pulses normal and equal in all extremities. ABDOMEN: Soft, without detectable tenderness. No sign of distention. No rebound or guarding, and no masses palpated. Bowel Sounds normal. MUSCULOSKELETAL: Good range of motion of all major joints. Extremities without clubbing, cyanosis or edema. NEUROLOGIC EXAM: Lethargic but arousable. No focal sensory or strength deficits. PSYCHIATRIC: Mood normal. SKIN: Multiple healed hyperpigmented maculopapular rash lesions covering the extremities Vital Signs - 12hr 12/21/17 12/21/17 12/21/17 20:30 20:45 21:00 Temperature Pulse Rate 126 H 130 H 125 H Respiratory 25 H 25 H 25 H Rate Blood Pressure 123/84 113/78 117/69 O2 Sat by Pulse 92 93 93 Oximetry 12/21/17 12/21/17 12/21/17 21:15 21:24 21:30 Temperature Pulse Rate 124 H 130 H 127 H Respiratory 21 38 H 23 Rate Blood Pressure 121/77 113/78 127/87 O2 Sat by Pulse 95 92 94 Oximetry 12/21/17 12/21/17 12/21/17 21:46 22:00 22:05 Temperature Pulse Rate 127 H 123 H 114 H Respiratory 24 21 16 Rate Blood Pressure 122/77 123/74 115/50 O2 Sat by Pulse 95 94 98 Oximetry 12/21/17 12/21/17 12/21/17 22:15 22:30 22:45 Temperature Pulse Rate 120 H 121 H 125 H Respiratory 24 22 22 Rate Blood Pressure 104/68 111/67 110/53 O2 Sat by Pulse 94 93 92 Oximetry 12/21/17 12/21/17 12/21/17 23:00 23:15 23:30 Temperature Pulse Rate 124 H 127 H 119 H Respiratory 20 12 25 H Rate Blood Pressure 110/53 115/50 92/47 O2 Sat by Pulse 86 88 100 Oximetry 12/21/17 12/21/17 12/22/17 23:46 23:54 00:00 Temperature 98.4 F Pulse Rate 113 H 116 H Respiratory 20 18 Rate Blood Pressure 81/34 95/54 O2 Sat by Pulse 94 Oximetry 12/22/17 12/22/17 12/22/17 00:15 00:29 00:30 Temperature Pulse Rate 118 H 116 H 117 H Respiratory 25 H 18 26 H Rate Blood Pressure 81/45 81/45 81/52 O2 Sat by Pulse 99 99 100 Oximetry 12/22/17 12/22/17 12/22/17 00:45 01:01 01:15 Temperature Pulse Rate 120 H 128 H 113 H Respiratory 27 H 18 24 Rate Blood Pressure 81/52 81/52 142/70 O2 Sat by Pulse 100 88 98 Oximetry 06/12/0412/22/17 12/22/17 01:30 01:45 02:00 Temperature Pulse Rate 120 H 121 H 121 H Respiratory 19 25 H 22 Rate Blood Pressure 105/67 115/73 123/69 O2 Sat by Pulse 99 99 98 Oximetry 12/22/17 12/22/17 12/22/17 02:15 02:28 02:31 Temperature Pulse Rate 118 H 115 H 112 H Respiratory 20 15 Rate Blood Pressure 111/64 101/61 O2 Sat by Pulse 99 Oximetry 12/22/17 12/22/17 12/22/17 02:45 03:00 03:15 Temperature Pulse Rate 115 H 121 H 120 H Respiratory 24 16 27 H Rate Blood Pressure 102/70 102/70 101/77 O2 Sat by Pulse 100 98 97 Oximetry 12/22/17 12/22/17 12/22/17 03:25 03:30 03:45 Temperature 98.6 F Pulse Rate 121 H 118 H Respiratory 20 23 Rate Blood Pressure 107/68 96/56 O2 Sat by Pulse 95 95 Oximetry 12/22/17 12/22/17 12/22/17 04:00 04:15 04:30 Temperature Pulse Rate 114 H 116 H 110 H Respiratory 19 22 22 Rate Blood Pressure 103/61 96/48 105/61 O2 Sat by Pulse 95 91 95 Oximetry 12/22/17 12/22/17 12/22/17 04:45 05:00 05:15 Temperature Pulse Rate 119 H 124 H 117 H Respiratory 16 27 H 19 Rate Blood Pressure 110/69 120/72 129/70 O2 Sat by Pulse 94 94 96 Oximetry 12/22/17 05:30 Temperature Pulse Rate 127 H Respiratory 22 Rate Blood Pressure 146/83 O2 Sat by Pulse 93 Oximetry CBC and BMP: 12/27/17 06:40 12/28/17 05:00 ABG, PT/INR, D-dimer: ABG POC ABG pH 7.241 (7.35-7.45) L 12/22/17 00:29 POC ABG pCO2 28.1 (35-45) L 12/22/17 00:29 POC ABG pO2 113 (80-105) H 12/22/17 00:29 POC ABG HCO3 12.1 12/22/17 00:29 POC ABG Total CO2 13 12/22/17 00:29 POC ABG O2 Sat 98 12/22/17 00:29 PT/INR, D-dimer PT 18.5 Sec. (12.2-14.9) H 12/20/17 23:35 INR 1.45 (0.87-1.13) H 12/20/17 23:35 Abnormal lab findings: Abnormal Labs 12/20/17 12/20/17 12/20/17 23:35 23:35 23:35 WBC MCV 78 L MCH 26 L RDW 15.7 H Plt Count 77 L Seg Neuts % (Manual) 76.0 H Lymphocytes % (Manual) 6.0 L Seg Neutrophils # Man 8.2 H Lymphocytes # (Manual) 0.6 L PT 18.5 H INR 1.45 H POC ABG pH POC ABG pCO2 POC ABG pO2 Sodium 130 L Potassium 3.5 L Chloride 92.3 L Carbon Dioxide 17 L BUN 27 H Creatinine 2.2 H Glucose 535 H* POC Glucose Lactic Acid Calcium 7.0 L Phosphorus Magnesium Alkaline Phosphatase 173 H Troponin T C-Reactive Protein Total Protein 5.1 L Albumin 2.6 L Triglycerides LDL Cholesterol Direct HDL Cholesterol Urine WBC (Auto) 12/20/17 12/21/17 12/21/17 23:35 01:11 01:11 WBC MCV MCH RDW Plt Count Seg Neuts % (Manual) Lymphocytes % (Manual) Seg Neutrophils # Man Lymphocytes # (Manual) PT INR POC ABG pH POC ABG pCO2 POC ABG pO2 Sodium Potassium Chloride Carbon Dioxide BUN Creatinine Glucose POC Glucose Lactic Acid 8.30 H* 8.10 H* Calcium Phosphorus 1.90 L Magnesium 1.30 L Alkaline Phosphatase Troponin T C-Reactive Protein Total Protein Albumin Triglycerides LDL Cholesterol Direct HDL Cholesterol Urine WBC (Auto) 12/21/17 12/21/17 12/21/17 01:11 01:50 02:09 WBC MCV MCH RDW Plt Count Seg Neuts % (Manual) Lymphocytes % (Manual) Seg Neutrophils # Man Lymphocytes # (Manual) PT INR POC ABG pH POC ABG pCO2 POC ABG pO2 Sodium 133 L Potassium 3.3 L Chloride 97.9 L Carbon Dioxide 15 L BUN 26 H Creatinine 2.1 H Glucose 504 H* POC Glucose 391 H Lactic Acid Calcium 6.4 L Phosphorus Magnesium Alkaline Phosphatase Troponin T C-Reactive Protein Total Protein Albumin Triglycerides LDL Cholesterol Direct HDL Cholesterol Urine WBC (Auto) 38.0 H 12/21/17 12/21/17 12/21/17 03:10 03:26 05:15 WBC MCV MCH RDW Plt Count Seg Neuts % (Manual) Lymphocytes % (Manual) Seg Neutrophils # Man Lymphocytes # (Manual) PT INR POC ABG pH POC ABG pCO2 POC ABG pO2 Sodium 135 L Potassium 3.3 L Chloride Carbon Dioxide 14 L BUN 25 H Creatinine 1.9 H Glucose 443 H POC Glucose 389 H 407 H Lactic Acid Calcium 6.0 L Phosphorus Magnesium Alkaline Phosphatase Troponin T C-Reactive Protein Total Protein Albumin Triglycerides LDL Cholesterol Direct HDL Cholesterol Urine WBC (Auto) 12/21/17 12/21/17 12/21/17 06:00 06:00 06:09 WBC MCV MCH RDW Plt Count Seg Neuts % (Manual) Lymphocytes % (Manual) Seg Neutrophils # Man Lymphocytes # (Manual) PT INR POC ABG pH POC ABG pCO2 POC ABG pO2 Sodium Potassium 3.4 L Chloride Carbon Dioxide 12 L BUN 28 H Creatinine 1.9 H Glucose 283 H POC Glucose 326 H Lactic Acid 7.90 H* Calcium 6.0 L Phosphorus Magnesium Alkaline Phosphatase Troponin T C-Reactive Protein Total Protein Albumin Triglycerides LDL Cholesterol Direct HDL Cholesterol Urine WBC (Auto) 12/21/17 12/21/17 12/21/17 07:23 08:16 08:44 WBC MCV MCH RDW Plt Count Seg Neuts % (Manual) Lymphocytes % (Manual) Seg Neutrophils # Man Lymphocytes # (Manual) PT INR POC ABG pH POC ABG pCO2 POC ABG pO2 Sodium Potassium 3.3 L Chloride 107.8 H Carbon Dioxide 14 L BUN 29 H Creatinine 2.0 H Glucose 140 H POC Glucose 267 H 257 H Lactic Acid Calcium 6.2 L Phosphorus Magnesium Alkaline Phosphatase Troponin T C-Reactive Protein Total Protein Albumin Triglycerides LDL Cholesterol Direct HDL Cholesterol Urine WBC (Auto) 12/21/17 12/21/17 12/21/17 08:44 08:44 09:02 WBC MCV MCH RDW Plt Count Seg Neuts % (Manual) Lymphocytes % (Manual) Seg Neutrophils # Man Lymphocytes # (Manual) PT INR POC ABG pH POC ABG pCO2 POC ABG pO2 Sodium Potassium Chloride Carbon Dioxide BUN Creatinine Glucose POC Glucose 211 H Lactic Acid 6.40 H* Calcium Phosphorus Magnesium Alkaline Phosphatase Troponin T C-Reactive Protein 27.10 H Total Protein Albumin Triglycerides LDL Cholesterol Direct HDL Cholesterol Urine WBC (Auto) 12/21/17 12/21/17 12/21/17 09:35 10:27 11:57 WBC MCV MCH RDW Plt Count Seg Neuts % (Manual) Lymphocytes % (Manual) Seg Neutrophils # Man Lymphocytes # (Manual) PT INR POC ABG pH POC ABG pCO2 POC ABG pO2 Sodium Potassium Chloride Carbon Dioxide BUN Creatinine Glucose POC Glucose 182 H 142 H 134 H Lactic Acid Calcium Phosphorus Magnesium Alkaline Phosphatase Troponin T C-Reactive Protein Total Protein Albumin Triglycerides LDL Cholesterol Direct HDL Cholesterol Urine WBC (Auto) 12/21/17 12/21/17 12/21/17 13:27 15:20 17:39 WBC MCV MCH RDW Plt Count Seg Neuts % (Manual) Lymphocytes % (Manual) Seg Neutrophils # Man Lymphocytes # (Manual) PT INR POC ABG pH POC ABG pCO2 POC ABG pO2 Sodium Potassium Chloride Carbon Dioxide BUN Creatinine Glucose POC Glucose 161 H 189 H Lactic Acid Calcium Phosphorus Magnesium Alkaline Phosphatase Troponin T 0.087 H C-Reactive Protein Total Protein Albumin Triglycerides 202 H LDL Cholesterol Direct 6 L HDL Cholesterol 10 L Urine WBC (Auto) 12/21/17 12/21/17 12/21/17 17:47 20:56 21:12 WBC MCV MCH RDW Plt Count Seg Neuts % (Manual) Lymphocytes % (Manual) Seg Neutrophils # Man Lymphocytes # (Manual) PT INR POC ABG pH 7.152 L POC ABG pCO2 POC ABG pO2 62 L Sodium Potassium Chloride 107.2 H Carbon Dioxide 14 L BUN 32 H Creatinine 2.4 H Glucose 171 H POC Glucose 136 H Lactic Acid Calcium 6.6 L Phosphorus Magnesium Alkaline Phosphatase Troponin T C-Reactive Protein Total Protein Albumin Triglycerides LDL Cholesterol Direct HDL Cholesterol Urine WBC (Auto) 12/22/17 12/22/17 12/22/17 00:29 03:08 04:29 WBC MCV MCH RDW Plt Count Seg Neuts % (Manual) Lymphocytes % (Manual) Seg Neutrophils # Man Lymphocytes # (Manual) PT INR POC ABG pH 7.241 L POC ABG pCO2 28.1 L POC ABG pO2 113 H Sodium Potassium Chloride Carbon Dioxide BUN Creatinine Glucose POC Glucose 109 H 139 H Lactic Acid Calcium Phosphorus Magnesium Alkaline Phosphatase Troponin T C-Reactive Protein Total Protein Albumin Triglycerides LDL Cholesterol Direct HDL Cholesterol Urine WBC (Auto) 12/22/17 12/22/17 12/22/17 04:30 04:30 04:30 WBC 21.9 H MCV 77 L MCH 25 L RDW 16.6 H Plt Count 57 L Seg Neuts % (Manual) Lymphocytes % (Manual) Seg Neutrophils # Man Lymphocytes # (Manual) PT INR POC ABG pH POC ABG pCO2 POC ABG pO2 Sodium Potassium Chloride Carbon Dioxide 14 L BUN 37 H Creatinine 2.7 H Glucose 145 H POC Glucose Lactic Acid 3.30 H* Calcium 6.4 L Phosphorus Magnesium Alkaline Phosphatase Troponin T C-Reactive Protein Total Protein Albumin Triglycerides LDL Cholesterol Direct HDL Cholesterol Urine WBC (Auto) 12/22/17 12/22/17 05:24 05:54 WBC MCV MCH RDW Plt Count Seg Neuts % (Manual) Lymphocytes % (Manual) Seg Neutrophils # Man Lymphocytes # (Manual) PT INR POC ABG pH POC ABG pCO2 POC ABG pO2 Sodium Potassium Chloride Carbon Dioxide BUN Creatinine Glucose POC Glucose 144 H 145 H Lactic Acid Calcium Phosphorus Magnesium Alkaline Phosphatase Troponin T C-Reactive Protein Total Protein Albumin Triglycerides LDL Cholesterol Direct HDL Cholesterol Urine WBC (Auto)
[2017-12-22] MEDS ORDERED: ATIVAN ONE (08:29)
[2017-12-22] MEDS ORDERED: ATIVAN IV ONE (08:30)
[2017-12-22] MEDS: MORPHINE IV PRN ×2 (08:30→17:03)
[2017-12-22 08:43] LABS: Calcium 6.7 mg/dL (8.4-10.2)
--- NOTE | 2017-12-22 09:45 | Consultation ---
History of Present Illness - Reason for Consult Consult date: 12/21/17 Medications and Allergies Allergies Allergy/AdvReac Type Severity Reaction Status Date / Time No Known Allergies Allergy Unverified 12/20/17 23:19 Home Medications Medication Instructions Recorded Confirmed Last Taken Type Losartan/Hydrochlorothiazide 1 each PO DAILY 12/21/17 12/21/17 Unknown History [Losartan-Hctz 50-12.5 mg Tab] glipiZIDE [Glipizide] 5 mg PO BID 12/21/17 12/21/17 Unknown History metFORMIN [Glucophage] 500 mg PO BID 12/21/17 12/21/17 Unknown History Active Meds: Active Medications Acetaminophen (Tylenol) 650 mg PO Q4H PRN PRN Reason: Pain MILD(1-3)/Fever >100.5/CHAVEZ Acetaminophen (Tylenol) 650 mg IA Q4H PRN PRN Reason: Pain MILD(1-3)/Fever >100.5/CHAVEZ Dextrose (D50w (25gm) Syringe) 0 ml IV ONCE PRN PRN Reason: Hypoglycemia Famotidine (Pepcid) 10 mg IV BID LO Last Admin: 12/21/17 21:27 Dose: 10 mg Norepinephrine (Levophed Drip 4 Mg/Ns 250 Ml) 4 mg in 250 mls @ 7.5 mls/hr IV TITR LO; Protocol Last Admin: 12/22/17 07:08 Dose: 20 mcg/min, 75 mls/hr Insulin Human Regular 100 (units/ Sodium Chloride) 100 mls @ 1 mls/hr IV TITR LO; Protocol Last Titration: 12/21/17 23:30 Dose: 0 units/hr, 0 mls/hr Sodium Chloride (Nacl 0.9% 1000 Ml) 1,000 mls @ 150 mls/hr IV DIRECT LO Last Infusion: 12/21/17 11:00 Dose: Infused Piperacillin Sod/Tazobactam Sod (Zosyn/Ns 2.25 Gm/50ml) 2.25 gm in 50 mls @ 100 mls/hr IV Q6HR LO Last Admin: 12/22/17 06:05 Dose: 100 mls/hr Sodium Bicarbonate 150 meq/ (Dextrose) 1,150 mls @ 75 mls/hr IV DIRECT ONE Stop: 12/22/17 15:58 Last Infusion: 06/05/18 06:05 Dose: 0 mls/hr Vancomycin HCl (Vancomycin/Ns 1 Gm/250 Ml) 1 gm in 250 mls @ 167.007 mls/hr IV ONCE ONE Stop: 12/22/17 13:29 Meropenem (Merrem/Ns 500 Mg/50 Ml) 500 mg in 50 mls @ 50 mls/hr IV Q8HR LO Insulin Human Regular (Humulin R) 0 units SUB-Q ACHS LO; Protocol Lorazepam (Ativan) 1 mg IV ONCE ONE Stop: 12/22/17 08:31 Morphine Sulfate (Morphine) 2 mg IV Q4H PRN PRN Reason: Pain, Moderate (4-6) Last Admin: 12/21/17 09:45 Dose: 2 mg Ondansetron HCl (Zofran) 4 mg IV Q4H PRN PRN Reason: Nausea And Vomiting Last Admin: 12/22/17 01:40 Dose: 4 mg Sodium Chloride (Sodium Chloride Flush Syringe 10 Ml) 10 ml IV BID LO Last Admin: 12/21/17 21:27 Dose: 10 ml Sodium Chloride (Sodium Chloride Flush Syringe 10 Ml) 10 ml IV PRN PRN PRN Reason: LINE FLUSH Vancomycin HCl (Vancomycin Pharmacy To Dose) 1 each IV PKCONSULT [facility] Exam - Constitutional Vitals: Temp Pulse Resp BP Pulse Ox 98.8 F 124 H 29 H 122/77 97 12/22/17 08:00 12/22/17 08:16 12/22/17 08:16 12/22/17 08:16 12/22/17 08:16 Results - Labs CBC & Chem 7: 12/22/17 04:30 12/22/17 07:56 Labs: Abnormal lab results 12/21/17 12/21/17 12/21/17 Range/Units 06:09 07:23 08:16 WBC (4.5-11.0) K/mm3 MCV (79-97) fl MCH (28-32) pg RDW (13.2-15.2) % Plt Count (140-440) K/mm3 POC ABG pH (7.35-7.45) POC ABG pCO2 (35-45) POC ABG pO2 (80-105) Chloride (98-107) mmol/L Carbon Dioxide (22-30) mmol/L BUN (7-17) mg/dL Creatinine (0.7-1.2) mg/dL Glucose (65-100) mg/dL POC Glucose 326 H 267 H 257 H (70-105) Lactic Acid (0.7-2.0) mmol/L Calcium (8.4-10.2) mg/dL Troponin T (0.00-0.029) ng/mL C-Reactive Protein (0.00-1.30) mg/dL Triglycerides (2-149) mg/dL LDL Cholesterol Direct (50-130) mg/dL HDL Cholesterol (40-59) mg/dL 12/21/17 12/21/17 12/21/17 Range/Units 08:44 09:02 09:35 WBC (4.5-11.0) K/mm3 MCV (79-97) fl MCH (28-32) pg RDW (13.2-15.2) % Plt Count (140-440) K/mm3 POC ABG pH (7.35-7.45) POC ABG pCO2 (35-45) POC ABG pO2 (80-105) Chloride (98-107) mmol/L Carbon Dioxide (22-30) mmol/L BUN (7-17) mg/dL Creatinine (0.7-1.2) mg/dL Glucose (65-100) mg/dL POC Glucose 211 H 182 H (70-105) Lactic Acid (0.7-2.0) mmol/L Calcium (8.4-10.2) mg/dL Troponin T (0.00-0.029) ng/mL C-Reactive Protein 27.10 H (0.00-1.30) mg/dL Triglycerides (2-149) mg/dL LDL Cholesterol Direct (50-130) mg/dL HDL Cholesterol (40-59) mg/dL 12/21/17 12/21/17 12/21/17 Range/Units 10:27 11:57 13:27 WBC (4.5-11.0) K/mm3 MCV (79-97) fl MCH (28-32) pg RDW (13.2-15.2) % Plt Count (140-440) K/mm3 POC ABG pH (7.35-7.45) POC ABG pCO2 (35-45) POC ABG pO2 (80-105) Chloride (98-107) mmol/L Carbon Dioxide (22-30) mmol/L BUN (7-17) mg/dL Creatinine (0.7-1.2) mg/dL Glucose (65-100) mg/dL POC Glucose 142 H 134 H (70-105) Lactic Acid (0.7-2.0) mmol/L Calcium (8.4-10.2) mg/dL Troponin T 0.087 H (0.00-0.029) ng/mL C-Reactive Protein (0.00-1.30) mg/dL Triglycerides 202 H (2-149) mg/dL LDL Cholesterol Direct 6 L (50-130) mg/dL HDL Cholesterol 10 L (40-59) mg/dL 12/21/17 12/21/17 12/21/17 Range/Units 15:20 17:39 17:47 WBC (4.5-11.0) K/mm3 MCV (79-97) fl MCH (28-32) pg RDW (13.2-15.2) % Plt Count (140-440) K/mm3 POC ABG pH (7.35-7.45) POC ABG pCO2 (35-45) POC ABG pO2 (80-105) Chloride 107.2 H (98-107) mmol/L Carbon Dioxide 14 L (22-30) mmol/L BUN 32 H (7-17) mg/dL Creatinine 2.4 H (0.7-1.2) mg/dL Glucose 171 H (65-100) mg/dL POC Glucose 161 H 189 H (70-105) Lactic Acid (0.7-2.0) mmol/L Calcium 6.6 L (8.4-10.2) mg/dL Troponin T (0.00-0.029) ng/mL C-Reactive Protein (0.00-1.30) mg/dL Triglycerides (2-149) mg/dL LDL Cholesterol Direct (50-130) mg/dL HDL Cholesterol (40-59) mg/dL 12/21/17 12/21/17 12/22/17 Range/Units 20:56 21:12 00:29 WBC (4.5-11.0) K/mm3 MCV (79-97) fl MCH (28-32) pg RDW (13.2-15.2) % Plt Count (140-440) K/mm3 POC ABG pH 7.152 L 7.241 L (7.35-7.45) POC ABG pCO2 28.1 L (35-45) POC ABG pO2 62 L 113 H (80-105) Chloride (98-107) mmol/L Carbon Dioxide (22-30) mmol/L BUN (7-17) mg/dL Creatinine (0.7-1.2) mg/dL Glucose (65-100) mg/dL POC Glucose 136 H (70-105) Lactic Acid (0.7-2.0) mmol/L Calcium (8.4-10.2) mg/dL Troponin T (0.00-0.029) ng/mL C-Reactive Protein (0.00-1.30) mg/dL Triglycerides (2-149) mg/dL LDL Cholesterol Direct (50-130) mg/dL HDL Cholesterol (40-59) mg/dL 12/22/17 12/22/17 12/22/17 Range/Units 03:08 04:29 04:30 WBC 21.9 H (4.5-11.0) K/mm3 MCV 77 L (79-97) fl MCH 25 L (28-32) pg RDW 16.6 H (13.2-15.2) % Plt Count 57 L (140-440) K/mm3 POC ABG pH (7.35-7.45) POC ABG pCO2 (35-45) POC ABG pO2 (80-105) Chloride (98-107) mmol/L Carbon Dioxide (22-30) mmol/L BUN (7-17) mg/dL Creatinine (0.7-1.2) mg/dL Glucose (65-100) mg/dL POC Glucose 109 H 139 H (70-105) Lactic Acid (0.7-2.0) mmol/L Calcium (8.4-10.2) mg/dL Troponin T (0.00-0.029) ng/mL C-Reactive Protein (0.00-1.30) mg/dL Triglycerides (2-149) mg/dL LDL Cholesterol Direct (50-130) mg/dL HDL Cholesterol (40-59) mg/dL 18 18 12/22/17 Range/Units 04:30 04:30 05:24 WBC (4.5-11.0) K/mm3 MCV (79-97) fl MCH (28-32) pg RDW (13.2-15.2) % Plt Count (140-440) K/mm3 POC ABG pH (7.35-7.45) POC ABG pCO2 (35-45) POC ABG pO2 (80-105) Chloride (98-107) mmol/L Carbon Dioxide 14 L (22-30) mmol/L BUN 37 H (7-17) mg/dL Creatinine 2.7 H (0.7-1.2) mg/dL Glucose 145 H (65-100) mg/dL POC Glucose 144 H (70-105) Lactic Acid 3.30 H* (0.7-2.0) mmol/L Calcium 6.4 L (8.4-10.2) mg/dL Troponin T (0.00-0.029) ng/mL C-Reactive Protein (0.00-1.30) mg/dL Triglycerides (2-149) mg/dL LDL Cholesterol Direct (50-130) mg/dL HDL Cholesterol (40-59) mg/dL 12/22/17 12/22/17 12/22/17 Range/Units 05:54 07:56 07:56 WBC (4.5-11.0) K/mm3 MCV (79-97) fl MCH (28-32) pg RDW (13.2-15.2) % Plt Count (140-440) K/mm3 POC ABG pH (7.35-7.45) POC ABG pCO2 (35-45) POC ABG pO2 (80-105) Chloride (98-107) mmol/L Carbon Dioxide 14 L (22-30) mmol/L BUN 39 H (7-17) mg/dL Creatinine 2.9 H (0.7-1.2) mg/dL Glucose 174 H (65-100) mg/dL POC Glucose 145 H (70-105) Lactic Acid 3.00 H* (0.7-2.0) mmol/L Calcium 6.7 L (8.4-10.2) mg/dL Troponin T (0.00-0.029) ng/mL C-Reactive Protein (0.00-1.30) mg/dL Triglycerides (2-149) mg/dL LDL Cholesterol Direct (50-130) mg/dL HDL Cholesterol (40-59) mg/dL Assessment and Plan SEPSIS DM ?MILD LEFT HYDRO - disc earlier w/ med amin, abx support; current pressors disc - disc w/ fam / pt options current supportive, potential etiology - ?hydro, optios current, risk of cysto rpg stent, possible IR eval - they wants obs abx, support by ICU for now - rpt imaging 1-2 days depending on hospital course - ID consultation - h/o hosptilazion before for same problem pt willie wilburn all the hosp names but last year in [facility] -
[2017-12-22] MEDS: PEPCID IV SCH ×2 (11:16→22:03)
[2017-12-22] MEDS: HumuLIN R SUB-Q SCH ×3 (11:17→22:13)
[2017-12-22] MEDS: SODIUM CHLORIDE FLUSH SYRINGE 10 ML IV SCH ×2 (11:18→22:11)
[2017-12-22] MEDS: MERREM/NS 500 MG/50 ML 500 MG/50 ML BAG IV SCH ×2 (11:18→22:03)
--- NOTE | 2017-12-22 11:47 | Consultation ---
History of Present Illness - Reason for Consult Consult date: 12/22/17 septic shock Requesting physician: JOSE A LUNDY - History of Present Illness 52-year-old female with a history of hypertension and uncontrolled diabetes takes metformin; admitted on 12/20/2017 48 hours history of subjective fever, nausea, multiple vomiting and diarrhea. She also complained of abdominal pain on the left lower quadrant and lower back pain which she describes as sharp pain , intermittent in nature and lasted for a few seconds, intensity 6/10, no radiation, she cannot identify exacerbating or relieving factor. Patient is originally from [place], moved to [facility] many years ago. Denies tobacco, alcohol or drug abuse. Of note, per , she developed papular nodular pruritic rash 4 months ago. In the ED her temperature 98.8, heart rate 105, respiration 18, O2 sat 97, blood pressure 59/38. Initial white count 10.8. Which then went to 21. Hemoglobin 11.3. Platelets 77. Bands 13. Glu 535. Creatinine 2.2. Lactic acid 8.3. CRP 27. UA shows small leukocyte esterase and white blood cells 38. Cdiff in stool negative. Viral hepatitis panel negative. Chest x-ray showed left retrocardiac opacity. CT of the abdomen showed bibasilar infiltrates with enlarged fatty liver and the left hydronephrosis with hydroureter and air. Microbiology: Blood cultures: 12/20 GNR 3 of 4 bottles Urine cultures: 12/20 GNR 10-100K Current Antimicrobials: Zosyn meropenem Vancomycin Previous Antimicrobials: Past History Past Medical History: diabetes Social history: . denies: smoking, IV drug use Family history: no significant family history Medications and Allergies Allergies Allergy/AdvReac Type Severity Reaction Status Date / Time No Known Allergies Allergy Unverified 12/20/17 23:19 Home Medications Medication Instructions Recorded Confirmed Last Taken Type Losartan/Hydrochlorothiazide 1 each PO DAILY 12/21/17 12/21/17 Unknown History [Losartan-Hctz 50-12.5 mg Tab] glipiZIDE [Glipizide] 5 mg PO BID 12/21/17 12/21/17 Unknown History metFORMIN [Glucophage] 500 mg PO BID 12/21/17 12/21/17 Unknown History Active Meds: Active Medications Acetaminophen (Tylenol) 650 mg PO Q4H PRN PRN Reason: Pain MILD(1-3)/Fever >100.5/CHAVEZ Acetaminophen (Tylenol) 650 mg TN Q4H PRN PRN Reason: Pain MILD(1-3)/Fever >100.5/CHAVEZ Dextrose (D50w (25gm) Syringe) 0 ml IV ONCE PRN PRN Reason: Hypoglycemia Famotidine (Pepcid) 10 mg IV BID LO Last Admin: 12/22/17 11:16 Dose: 10 mg Norepinephrine (Levophed Drip 4 Mg/Ns 250 Ml) 4 mg in 250 mls @ 7.5 mls/hr IV TITR LO; Protocol Last Admin: 12/22/17 11:19 Dose: 20 mcg/min, 75 mls/hr Insulin Human Regular 100 (units/ Sodium Chloride) 100 mls @ 1 mls/hr IV TITR LO; Protocol Last Titration: 12/21/17 23:30 Dose: 0 units/hr, 0 mls/hr Sodium Chloride (Nacl 0.9% 1000 Ml) 1,000 mls @ 150 mls/hr IV DIRECT LO Last Infusion: 12/21/17 11:00 Dose: Infused Piperacillin Sod/Tazobactam Sod (Zosyn/Ns 2.25 Gm/50ml) 2.25 gm in 50 mls @ 100 mls/hr IV Q6HR LO Last Admin: 12/22/17 11:20 Dose: 100 mls/hr Sodium Bicarbonate 150 meq/ (Dextrose) 1,150 mls @ 75 mls/hr IV DIRECT ONE Stop: 12/22/17 15:58 Last Infusion: 12/22/17 06:05 Dose: 0 mls/hr Vancomycin HCl (Vancomycin/Ns 1 Gm/250 Ml) 1 gm in 250 mls @ 167.007 mls/hr IV ONCE ONE Stop: 12/22/17 13:29 Meropenem (Merrem/Ns 500 Mg/50 Ml) 500 mg in 50 mls @ 50 mls/hr IV Q12HR LO Last Admin: 12/22/17 11:18 Dose: 50 mls/hr Insulin Human Regular (Humulin R) 0 units SUB-Q ACHS LO; Protocol Last Admin: 12/22/17 11:17 Dose: 2 units Morphine Sulfate (Morphine) 2 mg IV Q4H PRN PRN Reason: Pain, Moderate (4-6) Last Admin: 12/22/17 08:30 Dose: 2 mg Ondansetron HCl (Zofran) 4 mg IV Q4H PRN PRN Reason: Nausea And Vomiting Last Admin: 12/22/17 01:40 Dose: 4 mg Sodium Chloride (Sodium Chloride Flush Syringe 10 Ml) 10 ml IV BID [facility] Last Admin: 12/22/17 11:18 Dose: 10 ml Sodium Chloride (Sodium Chloride Flush Syringe 10 Ml) 10 ml IV PRN PRN PRN Reason: LINE FLUSH Vancomycin HCl (Vancomycin Pharmacy To Dose) 1 each IV PKCONSULT [facility] Physical Examination - Physical Exam Narrative exam: General appearance: somnolent in mild resp distress BIPAP Eyes: anicteric sclerae, moist conjunctivae; no lid-lag; PERRLA HENT: Atraumatic; oropharynx with BIPAP mask Neck: Trachea midline; supple, no thyromegaly or lymphadenopathy Lungs: abeba scattered rhonchi CV: RRR, no murmurs Abdomen: Soft, non-tender Extremities: No peripheral edema or extremity lymphadenopathy Skin: Multiple nodular lesions in the arms, legs and abdominal wall Psych: somnolent . Neuro: somnolent Lines: No CVL / PICC - Constitutional Vitals: Vital Signs Temp Pulse Resp BP Pulse Ox 98.8 F 124 H 29 H 122/77 97 12/22/17 08:00 12/22/17 08:16 12/22/17 08:16 12/22/17 08:16 12/22/17 08:16 Temperature -Last 24 Hours Temperature 98.8 F Temperature 98.6 F Temperature 98.4 F Temperature 98.8 F Temperature 98.0 F Temperature 98.7 F Results - Labs CBC & Chem 7: 12/22/17 04:30 12/22/17 07:56 Labs: Abnormal lab results 12/21/17 12/21/17 12/21/17 Range/Units 06:09 07:23 08:16 WBC (4.5-11.0) K/mm3 MCV (79-97) fl MCH (28-32) pg RDW (13.2-15.2) % Plt Count (140-440) K/mm3 POC ABG pH (7.35-7.45) POC ABG pCO2 (35-45) POC ABG pO2 (80-105) Chloride (98-107) mmol/L Carbon Dioxide (22-30) mmol/L BUN (7-17) mg/dL Creatinine (0.7-1.2) mg/dL Glucose (65-100) mg/dL POC Glucose 326 H 267 H 257 H (70-105) Lactic Acid (0.7-2.0) mmol/L Calcium (8.4-10.2) mg/dL Troponin T (0.00-0.029) ng/mL C-Reactive Protein (0.00-1.30) mg/dL Triglycerides (2-149) mg/dL LDL Cholesterol Direct (50-130) mg/dL HDL Cholesterol (40-59) mg/dL 12/21/17 12/21/17 12/21/17 Range/Units 08:44 09:02 09:35 WBC (4.5-11.0) K/mm3 MCV (79-97) fl MCH (28-32) pg RDW (13.2-15.2) % Plt Count (140-440) K/mm3 POC ABG pH (7.35-7.45) POC ABG pCO2 (35-45) POC ABG pO2 (80-105) Chloride (98-107) mmol/L Carbon Dioxide (22-30) mmol/L BUN (7-17) mg/dL Creatinine (0.7-1.2) mg/dL Glucose (65-100) mg/dL POC Glucose 211 H 182 H (70-105) Lactic Acid (0.7-2.0) mmol/L Calcium (8.4-10.2) mg/dL Troponin T (0.00-0.029) ng/mL C-Reactive Protein 27.10 H (0.00-1.30) mg/dL Triglycerides (2-149) mg/dL LDL Cholesterol Direct (50-130) mg/dL HDL Cholesterol (40-59) mg/dL 12/21/17 12/21/17 12/21/17 Range/Units 10:27 11:57 13:27 WBC (4.5-11.0) K/mm3 MCV (79-97) fl MCH (28-32) pg RDW (13.2-15.2) % Plt Count (140-440) K/mm3 POC ABG pH (7.35-7.45) POC ABG pCO2 (35-45) POC ABG pO2 (80-105) Chloride (98-107) mmol/L Carbon Dioxide (22-30) mmol/L BUN (7-17) mg/dL Creatinine (0.7-1.2) mg/dL Glucose (65-100) mg/dL POC Glucose 142 H 134 H (70-105) Lactic Acid (0.7-2.0) mmol/L Calcium (8.4-10.2) mg/dL Troponin T 0.087 H (0.00-0.029) ng/mL C-Reactive Protein (0.00-1.30) mg/dL Triglycerides 202 H (2-149) mg/dL LDL Cholesterol Direct 6 L (50-130) mg/dL HDL Cholesterol 10 L (40-59) mg/dL 12/21/17 12/21/17 12/21/17 Range/Units 15:20 17:39 17:47 WBC (4.5-11.0) K/mm3 MCV (79-97) fl MCH (28-32) pg RDW (13.2-15.2) % Plt Count (140-440) K/mm3 POC ABG pH (7.35-7.45) POC ABG pCO2 (35-45) POC ABG pO2 (80-105) Chloride 107.2 H (98-107) mmol/L Carbon Dioxide 14 L (22-30) mmol/L BUN 32 H (7-17) mg/dL Creatinine 2.4 H (0.7-1.2) mg/dL Glucose 171 H (65-100) mg/dL POC Glucose 161 H 189 H (70-105) Lactic Acid (0.7-2.0) mmol/L Calcium 6.6 L (8.4-10.2) mg/dL Troponin T (0.00-0.029) ng/mL C-Reactive Protein (0.00-1.30) mg/dL Triglycerides (2-149) mg/dL LDL Cholesterol Direct (50-130) mg/dL HDL Cholesterol (40-59) mg/dL 12/21/17 12/21/17 12/22/17 Range/Units 20:56 21:12 00:29 WBC (4.5-11.0) K/mm3 MCV (79-97) fl MCH (28-32) pg RDW (13.2-15.2) % Plt Count (140-440) K/mm3 POC ABG pH 7.152 L 7.241 L (7.35-7.45) POC ABG pCO2 28.1 L (35-45) POC ABG pO2 62 L 113 H (80-105) Chloride (98-107) mmol/L Carbon Dioxide (22-30) mmol/L BUN (7-17) mg/dL Creatinine (0.7-1.2) mg/dL Glucose (65-100) mg/dL POC Glucose 136 H (70-105) Lactic Acid (0.7-2.0) mmol/L Calcium (8.4-10.2) mg/dL Troponin T (0.00-0.029) ng/mL C-Reactive Protein (0.00-1.30) mg/dL Triglycerides (2-149) mg/dL LDL Cholesterol Direct (50-130) mg/dL HDL Cholesterol (40-59) mg/dL 12/22/17 12/22/17 12/22/17 Range/Units 03:08 04:29 04:30 WBC 21.9 H (4.5-11.0) K/mm3 MCV 77 L (79-97) fl MCH 25 L (28-32) pg RDW 16.6 H (13.2-15.2) % Plt Count 57 L (140-440) K/mm3 POC ABG pH (7.35-7.45) POC ABG pCO2 (35-45) POC ABG pO2 (80-105) Chloride (98-107) mmol/L Carbon Dioxide (22-30) mmol/L BUN (7-17) mg/dL Creatinine (0.7-1.2) mg/dL Glucose (65-100) mg/dL POC Glucose 109 H 139 H (70-105) Lactic Acid (0.7-2.0) mmol/L Calcium (8.4-10.2) mg/dL Troponin T (0.00-0.029) ng/mL C-Reactive Protein (0.00-1.30) mg/dL Triglycerides (2-149) mg/dL LDL Cholesterol Direct (50-130) mg/dL HDL Cholesterol (40-59) mg/dL 12/22/17 12/22/17 12/22/17 Range/Units 04:30 04:30 05:24 WBC (4.5-11.0) K/mm3 MCV (79-97) fl MCH (28-32) pg RDW (13.2-15.2) % Plt Count (140-440) K/mm3 POC ABG pH (7.35-7.45) POC ABG pCO2 (35-45) POC ABG pO2 (80-105) Chloride (98-107) mmol/L Carbon Dioxide 14 L (22-30) mmol/L BUN 37 H (7-17) mg/dL Creatinine 2.7 H (0.7-1.2) mg/dL Glucose 145 H (65-100) mg/dL POC Glucose 144 H (70-105) Lactic Acid 3.30 H* (0.7-2.0) mmol/L Calcium 6.4 L (8.4-10.2) mg/dL Troponin T (0.00-0.029) ng/mL C-Reactive Protein (0.00-1.30) mg/dL Triglycerides (2-149) mg/dL LDL Cholesterol Direct (50-130) mg/dL HDL Cholesterol (40-59) mg/dL 12/22/17 12/22/17 12/22/17 Range/Units 05:54 07:56 07:56 WBC (4.5-11.0) K/mm3 MCV (79-97) fl MCH (28-32) pg RDW (13.2-15.2) % Plt Count (140-440) K/mm3 POC ABG pH (7.35-7.45) POC ABG pCO2 (35-45) POC ABG pO2 (80-105) Chloride (98-107) mmol/L Carbon Dioxide 14 L (22-30) mmol/L BUN 39 H (7-17) mg/dL Creatinine 2.9 H (0.7-1.2) mg/dL Glucose 174 H (65-100) mg/dL POC Glucose 145 H (70-105) Lactic Acid 3.00 H* (0.7-2.0) mmol/L Calcium 6.7 L (8.4-10.2) mg/dL Troponin T (0.00-0.029) ng/mL C-Reactive Protein (0.00-1.30) mg/dL Triglycerides (2-149) mg/dL LDL Cholesterol Direct (50-130) mg/dL HDL Cholesterol (40-59) mg/dL 12/22/17 12/22/17 Range/Units 10:09 10:12 WBC (4.5-11.0) K/mm3 MCV (79-97) fl MCH (28-32) pg RDW (13.2-15.2) % Plt Count (140-440) K/mm3 POC ABG pH 7.180 L (7.35-7.45) POC ABG pCO2 (35-45) POC ABG pO2 117 H (80-105) Chloride (98-107) mmol/L Carbon Dioxide (22-30) mmol/L BUN (7-17) mg/dL Creatinine (0.7-1.2) mg/dL Glucose (65-100) mg/dL POC Glucose 185 H (70-105) Lactic Acid (0.7-2.0) mmol/L Calcium (8.4-10.2) mg/dL Troponin T (0.00-0.029) ng/mL C-Reactive Protein (0.00-1.30) mg/dL Triglycerides (2-149) mg/dL LDL Cholesterol Direct (50-130) mg/dL HDL Cholesterol (40-59) mg/dL Assessment and Plan Assessment: 1) Severe Sepsis with septic +/- hypovolemic shock: Present on admission, manifested by tachycardia, severe hypotension, leukocytosis, bandemia, increased lactate. Etiology most likely complicated UTI +/- GNR bacteremia +/- DKA/dehydration. -Lactic acid 8.3. -CRP 27. 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 -CT of the abdomen showed bibasilar infiltrates with enlarged fatty liver and the left hydronephrosis with hydroureter and air. -6/3 GNR 10-100K 3) GNR bacteremia: from UTI -6/3 GNR 3 of 4 bottles 4) Acute encephalopathy 5) MARLENE 6) Acute respiratory failure 7) Uncontrolled diabetes with DKA 8) Hypertension 9) Diarrhea - ? reactive 10) Low platelets- from sepsis 11) ? pneumonia ? aspiration 12) Skin rash ? scabies Plan: -follow-up initial blood cultures, urine culture -repeat blood cx today -agree with meropenem renally dosed -stop zosyn and vancomycin -per IR not optimal candidate for nephrostomy tube due to minimally distented collecting system and thrombocytopenia. -start permethrin cream fro presumed scabies -contact isolation Guarded prognosis Thank you for your consultation, will follow up with you. Guerda Nuñez MD Infectious Diseases Specialist [facility] M [phone] O [phone]
[2017-12-22] MEDS ORDERED: VANCOMYCIN/NS 1 GM/250 ML 1 GM/250 ML BAG IV ONE (12:00)
--- NOTE | 2017-12-22 14:59 | Progress Note ---
Assessment and Plan Assessment and plan: 52-year-old woman with a history of hypertension, diabetes comes to emergency room with complaints of fever, nausea vomiting and diarrhea that started yesterday. She's had 4 episodes of diarrhea today, stool is less watery. She also complained of abdominal pain on the left lower quadrant and lower back pain which she describes as sharp pain, intermittent in nature and lasted for a few seconds, intensity 6/10, no radiation, she cannot identify exacerbating or relieving factor. Sons at bedside are translators. The patient took that one dose of antibiotic this morning, she does not know the name of the antibiotic. 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 scabies Acute encephalopathy Gastroenteritis, viral Thrombocytopenia Plan Continue ICU care Antibiotics changed from IV Zosyn, vancomycin, to merrem, follow cultures Obtain CAT scan of the abdomen and pelvis per IR not optimal candidate for nephrostomy tube due to minimally distented collecting system and thrombocytopenia. Initiated DKA protocol with IV fluids, insulin drip Transition to long acting once gap closed permethrin cream fro presumed scabies Per ID Contact Isolation Monitor serial fingerstick, electrolyte Check stool studies SON advised of findings DVT prophylaxis GUARDED PROGNOSIS The high probability of a clinically significant, sudden or life threatening deterioration of the [pulmonary, Renal, infectious] system(s) required my full and direct attention, intervention and personal management. The aggregate critical care time was [35] minutes. This time is in addition to time spent performing reported procedures but includes the following: [X] Data Review and interpretation [X] Patient assessment and monitoring of vital signs [X] Documentation [X] Medication orders and management History Interval history: Patient seen and examined, increased wob this am, requiring BIPAP Hospitalist Physical - Physical exam Narrative exam: VITAL SIGNS: Reviewed. GENERAL: The patient appeared well nourished and normally developed although was lethargic. Vital signs as documented. HEAD: No signs of head trauma. EYES: Pupils are equal. Extraocular motions intact. EARS: Hearing grossly intact. MOUTH: Oropharynx is normal. NECK: No adenopathy, no JVD. CHEST: Chest with diminished breath sounds bilaterally. No wheezes, rales, or rhonchi. CARDIAC: Regular rate and rhythm. S1 and S2, without murmurs, gallops, or rubs. VASCULAR: No Edema. Peripheral pulses normal and equal in all extremities. ABDOMEN: Soft, without detectable tenderness. No sign of distention. No rebound or guarding, and no masses palpated. Bowel Sounds normal. MUSCULOSKELETAL: Good range of motion of all major joints. Extremities without clubbing, cyanosis or edema. NEUROLOGIC EXAM: Lethargic but arousable. No focal sensory or strength deficits. Speech normal. Follows commands. PSYCHIATRIC: Mood normal. SKIN: Multiple punctate lesions covering the whole body. - Constitutional Vitals: Temp Pulse Resp BP Pulse Ox 98.4 F 122 H 22 174/89 98 12/22/17 12:00 12/22/17 14:30 12/22/17 14:30 12/22/17 14:30 12/22/17 14:30 Results - Labs CBC & Chem 7: 12/23/17 05:30 12/23/17 05:30 Labs: Laboratory Last Values WBC 21.9 K/mm3 (4.5-11.0) H 12/22/17 04:30 RBC 4.56 M/mm3 (3.65-5.03) 12/22/17 04:30 Hgb 11.4 gm/dl (10.1-14.3) 12/22/17 04:30 Hct 35.1 % (30.3-42.9) 12/22/17 04:30 MCV 77 fl (79-97) L 12/22/17 04:30 MCH 25 pg (28-32) L 12/22/17 04:30 MCHC 32 % (30-34) 12/22/17 04:30 RDW 16.6 % (13.2-15.2) H 12/22/17 04:30 Plt Count 57 K/mm3 (140-440) L 12/22/17 04:30 Add Manual Diff Complete 12/20/17 23:35 Total Counted 100 12/20/17 23:35 Seg Neuts % (Manual) 76.0 % (40.0-70.0) H 12/20/17 23:35 Band Neutrophils % 13.0 % 12/20/17 23:35 Lymphocytes % (Manual) 6.0 % (13.4-35.0) L 12/20/17 23:35 Reactive Lymphs % (Man) 0 % 12/20/17 23:35 Monocytes % (Manual) 1.0 % (0.0-7.3) 12/20/17 23:35 Eosinophils % (Manual) 0 % (0.0-4.3) 12/20/17 23:35 Basophils % (Manual) 0 % (0.0-1.8) 12/20/17 23:35 Metamyelocytes % 1.0 % 12/20/17 23:35 Myelocytes % 3.0 % 12/20/17 23:35 Promyelocytes % 0 % 12/20/17 23:35 Blast Cells % 0 % 12/20/17 23:35 Nucleated RBC % Not Reportable 12/20/17 23:35 Seg Neutrophils # Man 8.2 K/mm3 (1.8-7.7) H 12/20/17 23:35 Band Neutrophils # 1.4 K/mm3 12/20/17 23:35 Lymphocytes # (Manual) 0.6 K/mm3 (1.2-5.4) L 12/20/17 23:35 Abs React Lymphs (Man) 0.0 K/mm3 12/20/17 23:35 Monocytes # (Manual) 0.1 K/mm3 (0.0-0.8) 12/20/17 23:35 Eosinophils # (Manual) 0.0 K/mm3 (0.0-0.4) 12/20/17 23:35 Basophils # (Manual) 0.0 K/mm3 (0.0-0.1) 12/20/17 23:35 Metamyelocytes # 0.1 K/mm3 12/20/17 23:35 Myelocytes # 0.3 K/mm3 12/20/17 23:35 Promyelocytes # 0.0 K/mm3 12/20/17 23:35 Blast Cells # 0.0 K/mm3 12/20/17 23:35 WBC Morphology Not Reportable 12/20/17 23:35 Hypersegmented Neuts Not Reportable 12/20/17 23:35 Hyposegmented Neuts Not Reportable 12/20/17 23:35 Hypogranular Neuts Not Reportable 12/20/17 23:35 Smudge Cells Not Reportable 12/20/17 23:35 Toxic Granulation Not Reportable 12/20/17 23:35 Toxic Vacuolation Not Reportable 12/20/17 23:35 Dohle Bodies Not Reportable 12/20/17 23:35 Pelger-Huet Anomaly Not Reportable 12/20/17 23:35 Pooja Rods Not Reportable 12/20/17 23:35 Platelet Estimate Appears decreased 12/20/17 23:35 Clumped Platelets Not Reportable 12/20/17 23:35 Plt Clumps, EDTA Not Reportable 12/20/17 23:35 Large Platelets Not Reportable 12/20/17 23:35 Giant Platelets Not Reportable 12/20/17 23:35 Platelet Satelliting Not Reportable 12/20/17 23:35 Plt Morphology Comment Not Reportable 12/20/17 23:35 RBC Morphology Not Reportable 12/20/17 23:35 Dimorphic RBCs Not Reportable 12/20/17 23:35 Polychromasia Not Reportable 12/20/17 23:35 Hypochromasia 1+ 12/20/17 23:35 Poikilocytosis Not Reportable 12/20/17 23:35 Anisocytosis Not Reportable 12/20/17 23:35 Microcytosis Not Reportable 12/20/17 23:35 Macrocytosis Not Reportable 12/20/17 23:35 Spherocytes Not Reportable 12/20/17 23:35 Pappenheimer Bodies Not Reportable 12/20/17 23:35 Sickle Cells Not Reportable 12/20/17 23:35 Target Cells Not Reportable 12/20/17 23:35 Tear Drop Cells Not Reportable 12/20/17 23:35 Ovalocytes Not Reportable 12/20/17 23:35 Helmet Cells Not Reportable 12/20/17 23:35 [place] Bodies Not Reportable 12/20/17 23:35 Sesser Rings Not Reportable 12/20/17 23:35 Benton Cells Not Reportable 12/20/17 23:35 Bite Cells Not Reportable 12/20/17 23:35 Crenated Cell Not Reportable 12/20/17 23:35 Elliptocytes Not Reportable 12/20/17 23:35 Acanthocytes (Spur) Not Reportable 12/20/17 23:35 Rouleaux Not Reportable 12/20/17 23:35 Hemoglobin C Crystals Not Reportable 12/20/17 23:35 Schistocytes Not Reportable 12/20/17 23:35 Malaria parasites Not Reportable 12/20/17 23:35 López Bodies Not Reportable 12/20/17 23:35 Hem Pathologist Commnt No 12/20/17 23:35 PT 18.5 Sec. (12.2-14.9) H 12/20/17 23:35 INR 1.45 (0.87-1.13) H 12/20/17 23:35 POC ABG pH 7.285 (7.35-7.45) L 12/22/17 14:23 POC ABG pCO2 29.9 (35-45) L 12/22/17 14:23 POC ABG pO2 117 (80-105) H 12/22/17 14:23 POC ABG HCO3 14.2 12/22/17 14:23 POC ABG Total CO2 15 12/22/17 14:23 POC ABG O2 Sat 98 12/22/17 14:23 POC ABG Base Excess -12 12/22/17 14:23 VBG pH 7.320 (7.320-7.420) 12/20/17 23:35 FiO2 40 % 12/22/17 14:23 Sodium 140 mmol/L (137-145) 12/22/17 07:56 Potassium 4.4 mmol/L (3.6-5.0) 12/22/17 07:56 Chloride 104.8 mmol/L (98-107) 12/22/17 07:56 Carbon Dioxide 14 mmol/L (22-30) L 12/22/17 07:56 Anion Gap 26 mmol/L 12/22/17 07:56 BUN 39 mg/dL (7-17) H 12/22/17 07:56 Creatinine 2.9 mg/dL (0.7-1.2) H 12/22/17 07:56 Estimated GFR 17 ml/min 12/22/17 07:56 BUN/Creatinine Ratio 13 % 12/22/17 07:56 Glucose 174 mg/dL (65-100) H 12/22/17 07:56 POC Glucose 220 (70-105) H 12/22/17 14:27 Lactic Acid 3.00 mmol/L (0.7-2.0) H* 12/22/17 07:56 Calcium 6.7 mg/dL (8.4-10.2) L 12/22/17 07:56 Phosphorus 1.90 mg/dL (2.5-4.5) L 12/21/17 01:11 Magnesium 1.30 mg/dL (1.7-2.3) L 12/21/17 01:11 Total Bilirubin 0.60 mg/dL (0.1-1.2) 12/20/17 23:35 AST 26 units/L (5-40) 12/20/17 23:35 ALT 21 units/L (7-56) 12/20/17 23:35 Alkaline Phosphatase 173 units/L (35-129) H 12/20/17 23:35 Total Creatine Kinase 117 units/L (30-135) 12/21/17 13:27 CK-MB (CK-2) 3.9 ng/mL (0.0-4.0) 12/21/17 13:27 CK-MB (CK-2) Rel Index 3.3 (0-4) 12/21/17 13:27 Troponin T 0.087 ng/mL (0.00-0.029) H 12/21/17 13:27 C-Reactive Protein 27.10 mg/dL (0.00-1.30) H 12/21/17 08:44 Total Protein 5.1 g/dL (6.3-8.2) L 12/20/17 23:35 Albumin 2.6 g/dL (3.9-5) L 12/20/17 23:35 Albumin/Globulin Ratio 1.0 % 12/20/17 23:35 Triglycerides 202 mg/dL (2-149) H 12/21/17 13:27 Cholesterol 57 mg/dL (50-199) 12/21/17 13:27 LDL Cholesterol Direct 6 mg/dL (50-130) L 12/21/17 13:27 HDL Cholesterol 10 mg/dL (40-59) L 12/21/17 13:27 Cholesterol/HDL Ratio 5.70 % 12/21/17 13:27 Urine Color Yellow (Yellow) 12/21/17 01:50 Urine Turbidity Clear (Clear) 12/21/17 01:50 Urine pH 5.0 (5.0-7.0) 12/21/17 01:50 Ur Specific [place] 1.015 (1.003-1.030) 12/21/17 01:50 Urine Protein <15 mg/dl mg/dL (Negative) 12/21/17 01:50 Urine Glucose (UA) >=500 mg/dL (Negative) 12/21/17 01:50 Urine Ketones Neg mg/dL (Negative) 12/21/17 01:50 Urine Blood Neg (Negative) 12/21/17 01:50 Urine Nitrite Neg (Negative) 12/21/17 01:50 Urine Bilirubin Neg (Negative) 12/21/17 01:50 Urine Urobilinogen < 2.0 mg/dL (<2.0) 12/21/17 01:50 Ur Leukocyte Esterase Sm (Negative) 12/21/17 01:50 Urine WBC (Auto) 38.0 /HPF (0.0-6.0) H 12/21/17 01:50 Urine RBC (Auto) 3.0 /HPF (0.0-6.0) 12/21/17 01:50 U Epithel Cells (Auto) 3.0 /HPF (0-13.0) 12/21/17 01:50 Urine Bacteria (Auto) 2+ /HPF (Negative) 12/21/17 01:50 Random Vancomycin 15.4 ug/mL (0-40.0) 12/22/17 Unknown C. difficile Toxin A&B Negative (Negative) 12/21/17 04:52 Hepatitis A IgM Ab Non-reactive (NonReactive) 12/21/17 08:44 Hep Bs Antigen Non-reactive (Negative) 12/21/17 08:44 Hep B Core IgM Ab Non-reactive (NonReactive) 12/21/17 08:44 Hepatitis C Antibody Non-reactive (NonReactive) 12/21/17 08:44
--- NOTE | 2017-12-22 18:15 | Progress Note ---
Subjective Date of service: 12/22/17 Interval history: 52-year-old female with a history of hypertension and uncontrolled diabetes takes metformin; admitted on 12/20/2017 48 hours history of subjective fever, nausea, multiple vomiting and diarrhea. She also complained of abdominal pain on the left lower quadrant and lower back pain which she describes as sharp pain , intermittent in nature and lasted for a few seconds, intensity 6/10, no radiation, she cannot identify exacerbating or relieving factor. Patient is originally from [place], moved to [facility] many years ago. Denies tobacco, alcohol or drug abuse. Of note, per , she developed papular nodular pruritic rash 4 months ago. female family at bedside seen by Dr. Bruce also (IR) conservative mgmt CT of the abdomen showed bibasilar infiltrates with enlarged fatty liver and the left hydronephrosis with hydroureter and air amin--amara urine E.coli in blood & urine A/P left hydro uncontrolled diabetes obs for now Objective - Constitutional Vitals: Vital Signs - 12hr 12/22/17 12/22/17 12/22/17 06:15 06:30 06:46 Temperature Pulse Rate 129 H 126 H 130 H Pulse Rate [ From Monitor] Respiratory 22 28 H 12 Rate Blood Pressure 126/65 133/79 133/58 O2 Sat by Pulse 95 94 91 Oximetry 12/22/17 12/22/17 12/22/17 07:00 07:15 07:30 Temperature Pulse Rate 119 H 115 H 118 H Pulse Rate [ From Monitor] Respiratory 24 22 24 Rate Blood Pressure 130/73 133/75 129/79 O2 Sat by Pulse 97 93 97 Oximetry 12/22/17 12/22/17 12/22/17 07:45 08:00 08:15 Temperature 98.8 F Pulse Rate 128 H 124 H 126 H Pulse Rate [ 113 H From Monitor] Respiratory 19 24 12 Rate Blood Pressure 125/82 122/77 143/86 O2 Sat by Pulse 98 96 98 Oximetry 12/22/17 12/22/17 12/22/17 08:16 08:30 08:45 Temperature Pulse Rate 124 H 126 H 111 H Pulse Rate [ From Monitor] Respiratory 29 H 16 15 Rate Blood Pressure 122/77 116/74 86/55 O2 Sat by Pulse 97 97 97 Oximetry 12/22/17 12/22/17 12/22/17 09:00 09:15 09:30 Temperature Pulse Rate 112 H 111 H 120 H Pulse Rate [ From Monitor] Respiratory 18 16 15 Rate Blood Pressure 81/60 91/56 110/70 O2 Sat by Pulse 99 99 Oximetry 12/22/17 12/22/17 12/22/17 09:45 10:00 10:15 Temperature Pulse Rate 119 H 102 H 121 H Pulse Rate [ From Monitor] Respiratory 15 22 13 Rate Blood Pressure 107/72 76/48 122/78 O2 Sat by Pulse 98 99 Oximetry 12/22/17 12/22/17 12/22/17 10:30 10:45 11:00 Temperature Pulse Rate 118 H 120 H 120 H Pulse Rate [ From Monitor] Respiratory 16 15 16 Rate Blood Pressure 123/75 132/80 135/82 O2 Sat by Pulse 99 99 99 Oximetry 12/22/17 12/22/17 12/22/17 11:15 11:30 11:45 Temperature Pulse Rate 109 H 118 H 121 H Pulse Rate [ From Monitor] Respiratory 21 15 15 Rate Blood Pressure 98/64 131/81 131/80 O2 Sat by Pulse 100 96 99 Oximetry 12/22/17 12/22/17 12/22/17 12:00 12:13 12:16 Temperature 98.4 F Pulse Rate 121 H 121 H 129 H Pulse Rate [ 122 H From Monitor] Respiratory 22 21 19 Rate Blood Pressure 129/85 129/85 148/90 O2 Sat by Pulse 99 100 99 Oximetry 12/22/17 12/22/17 12/22/17 12:30 12:45 13:00 Temperature Pulse Rate 123 H 121 H 127 H Pulse Rate [ From Monitor] Respiratory 17 16 16 Rate Blood Pressure 144/91 160/93 134/92 O2 Sat by Pulse 99 99 93 Oximetry 12/22/17 12/22/17 12/22/17 13:15 13:30 13:45 Temperature Pulse Rate 123 H 122 H 121 H Pulse Rate [ From Monitor] Respiratory 18 16 19 Rate Blood Pressure 151/85 154/85 O2 Sat by Pulse 99 100 99 Oximetry 12/22/17 12/22/17 12/22/17 14:00 14:16 14:30 Temperature Pulse Rate 117 H 127 H 122 H Pulse Rate [ From Monitor] Respiratory 17 20 22 Rate Blood Pressure 122/78 122/78 174/89 O2 Sat by Pulse 99 98 98 Oximetry 06/12/0412/22/17 12/22/17 14:45 15:00 15:16 Temperature Pulse Rate 112 H 110 H 121 H Pulse Rate [ From Monitor] Respiratory 15 16 22 Rate Blood Pressure 111/74 126/85 155/122 O2 Sat by Pulse 88 100 99 Oximetry 12/22/17 12/22/17 12/22/17 15:30 15:45 15:49 Temperature 98.6 F Pulse Rate 119 H 117 H Pulse Rate [ From Monitor] Respiratory 20 24 Rate Blood Pressure 176/87 131/86 O2 Sat by Pulse 99 100 Oximetry 12/22/17 12/22/17 12/22/17 16:00 16:15 16:30 Temperature Pulse Rate 114 H 116 H 115 H Pulse Rate [ From Monitor] Respiratory 16 24 17 Rate Blood Pressure 132/84 138/88 131/88 O2 Sat by Pulse 96 95 99 Oximetry 12/22/17 12/22/17 12/22/17 16:46 17:00 17:24 Temperature Pulse Rate 116 H 112 H 115 H Pulse Rate [ From Monitor] Respiratory 19 15 24 Rate Blood Pressure 148/85 115/77 97/65 O2 Sat by Pulse 99 99 100 Oximetry - Labs CBC & Chem 7: 12/22/17 04:30 12/22/17 07:56 Labs: Abnormal lab results 12/21/17 12/21/17 12/21/17 Range/Units 17:47 19:32 20:56 WBC (4.5-11.0) K/mm3 MCV (79-97) fl MCH (28-32) pg RDW (13.2-15.2) % Plt Count (140-440) K/mm3 POC ABG pH (7.35-7.45) POC ABG pCO2 (35-45) POC ABG pO2 (80-105) Chloride 107.2 H (98-107) mmol/L Carbon Dioxide 14 L (22-30) mmol/L BUN 32 H (7-17) mg/dL Creatinine 2.4 H (0.7-1.2) mg/dL Glucose 171 H (65-100) mg/dL POC Glucose 160 H 136 H (70-105) Lactic Acid (0.7-2.0) mmol/L Calcium 6.6 L (8.4-10.2) mg/dL 12/21/17 12/22/17 12/22/17 Range/Units 21:12 00:29 03:08 WBC (4.5-11.0) K/mm3 MCV (79-97) fl MCH (28-32) pg RDW (13.2-15.2) % Plt Count (140-440) K/mm3 POC ABG pH 7.152 L 7.241 L (7.35-7.45) POC ABG pCO2 28.1 L (35-45) POC ABG pO2 62 L 113 H (80-105) Chloride (98-107) mmol/L Carbon Dioxide (22-30) mmol/L BUN (7-17) mg/dL Creatinine (0.7-1.2) mg/dL Glucose (65-100) mg/dL POC Glucose 109 H (70-105) Lactic Acid (0.7-2.0) mmol/L Calcium (8.4-10.2) mg/dL 12/22/17 12/22/17 12/22/17 Range/Units 04:29 04:30 04:30 WBC 21.9 H (4.5-11.0) K/mm3 MCV 77 L (79-97) fl MCH 25 L (28-32) pg RDW 16.6 H (13.2-15.2) % Plt Count 57 L (140-440) K/mm3 POC ABG pH (7.35-7.45) POC ABG pCO2 (35-45) POC ABG pO2 (80-105) Chloride (98-107) mmol/L Carbon Dioxide 14 L (22-30) mmol/L BUN 37 H (7-17) mg/dL Creatinine 2.7 H (0.7-1.2) mg/dL Glucose 145 H (65-100) mg/dL POC Glucose 139 H (70-105) Lactic Acid (0.7-2.0) mmol/L Calcium 6.4 L (8.4-10.2) mg/dL 12/22/17 12/22/17 12/22/17 Range/Units 04:30 05:24 05:54 WBC (4.5-11.0) K/mm3 MCV (79-97) fl MCH (28-32) pg RDW (13.2-15.2) % Plt Count (140-440) K/mm3 POC ABG pH (7.35-7.45) POC ABG pCO2 (35-45) POC ABG pO2 (80-105) Chloride (98-107) mmol/L Carbon Dioxide (22-30) mmol/L BUN (7-17) mg/dL Creatinine (0.7-1.2) mg/dL Glucose (65-100) mg/dL POC Glucose 144 H 145 H (70-105) Lactic Acid 3.30 H* (0.7-2.0) mmol/L Calcium (8.4-10.2) mg/dL 12/22/17 12/22/17 12/22/17 Range/Units 07:56 07:56 10:09 WBC (4.5-11.0) K/mm3 MCV (79-97) fl MCH (28-32) pg RDW (13.2-15.2) % Plt Count (140-440) K/mm3 POC ABG pH 7.180 L (7.35-7.45) POC ABG pCO2 (35-45) POC ABG pO2 117 H (80-105) Chloride (98-107) mmol/L Carbon Dioxide 14 L (22-30) mmol/L BUN 39 H (7-17) mg/dL Creatinine 2.9 H (0.7-1.2) mg/dL Glucose 174 H (65-100) mg/dL POC Glucose (70-105) Lactic Acid 3.00 H* (0.7-2.0) mmol/L Calcium 6.7 L (8.4-10.2) mg/dL 12/22/17 12/22/17 12/22/17 Range/Units 10:12 12:19 14:23 WBC (4.5-11.0) K/mm3 MCV (79-97) fl MCH (28-32) pg RDW (13.2-15.2) % Plt Count (140-440) K/mm3 POC ABG pH 7.241 L 7.285 L (7.35-7.45) POC ABG pCO2 33.9 L 29.9 L (35-45) POC ABG pO2 45 L 117 H (80-105) Chloride (98-107) mmol/L Carbon Dioxide (22-30) mmol/L BUN (7-17) mg/dL Creatinine (0.7-1.2) mg/dL Glucose (65-100) mg/dL POC Glucose 185 H (70-105) Lactic Acid (0.7-2.0) mmol/L Calcium (8.4-10.2) mg/dL 12/22/17 12/22/17 Range/Units 14:27 17:22 WBC (4.5-11.0) K/mm3 MCV (79-97) fl MCH (28-32) pg RDW (13.2-15.2) % Plt Count (140-440) K/mm3 POC ABG pH (7.35-7.45) POC ABG pCO2 (35-45) POC ABG pO2 (80-105) Chloride (98-107) mmol/L Carbon Dioxide (22-30) mmol/L BUN (7-17) mg/dL Creatinine (0.7-1.2) mg/dL Glucose (65-100) mg/dL POC Glucose 220 H 197 H (70-105) Lactic Acid (0.7-2.0) mmol/L Calcium (8.4-10.2) mg/dL
[2017-12-23] MEDS ORDERED: ATIVAN IV ONE (01:45)
[2017-12-23] MEDS: LEVOPHED DRIP 4 MG/NS 250 ML 4 MG/250 ML BAG IV SCH ×3 (01:55→21:00)
[2017-12-23] MEDS: MORPHINE IV PRN ×2 (04:54→10:08)
[2017-12-23 06:09] LABS: Hematocrit 30.8 % (30.3-42.9); Hemoglobin 10.5 gm/dl (10.1-14.3); Mean Corpuscular HGB Conc 34 % (30-34); Mean Corpuscular Volume 75 fl (79-97); Red Blood Count 4.09 M/mm3 (3.65-5.03); Red Cell Distribution Width 16.7 % (13.2-15.2)
[2017-12-23 06:20] LABS: Mean Corpuscular Hemoglobin 26 pg (28-32)
[2017-12-23 06:21] LABS: Platelet Count 26 K/mm3 (140-440)
[2017-12-23 06:31] LABS: Calcium 6.7 mg/dL (8.4-10.2)
--- NOTE | 2017-12-23 07:02 | Ultrasound Report ---
FINAL REPORT PROCEDURE: US RENAL BILAT TECHNIQUE: Real-time sonography in multiple planes of the kidneys, ureters and urinary bladder was performed with image documentation. CPT 28375 HISTORY: MARLENE COMPARISON: No prior studies are available for comparison. FINDINGS: RIGHT kidney: Normal echotexture. No focal renal mass, calculus, or hydronephrosis. Length: 11.8 cm. LEFT kidney: Normal size. Normal echotexture. The left ureter approximately a slightly prominent size measuring 10 millimeters.. Length: 13cm. Bladder: There is a Vizcaino catheter within the urinary bladder. Minimal free fluid in the lower pelvis is noted.. IMPRESSION: There is slight prominence of the proximal left ureter. The remainder of the renal imaged is normal. There is a Vizcaino catheter within the urinary bladder. Minimal fluid in the lower pelvis is noted..
[2017-12-23] MEDS: HumuLIN R SUB-Q SCH ×4 (07:35→22:52)
--- NOTE | 2017-12-23 09:51 | Progress Note ---
Assessment and Plan Assessment: 1) Severe Sepsis with septic +/- hypovolemic shock: pressors req and leukocytosis better. Etiology most likely complicated UTI +/- GNR bacteremia +/ - DKA/dehydration. -Lactic acid 8.3. -CRP 27. 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 -CT of the abdomen showed bibasilar infiltrates with enlarged fatty liver and the left hydronephrosis with hydroureter and air. -/ GNR 10-100K 3) E. coli bacteremia: from UTI -12/20 E coli 3 of 4 bottles - pansensitive -12/22 blood cx pending 4) Acute encephalopathy 5) MARLENE - worsening 6) Acute respiratory failure - still on BIPAP 7) Uncontrolled diabetes with DKA 8) Hypertension 9) Diarrhea - ? reactive 10) Low platelets- from sepsis 11) ? pneumonia ? aspiration 12) Skin rash ? scabies Plan: -follow-up repeat blood cx -stop meropenem -start cefepime -per IR not optimal candidate for nephrostomy tube due to minimally distented collecting system and thrombocytopenia. -start permethrin cream for presumed scabies -contact isolation I am rounding on 12/25 Guarded prognosis Thank you for your consultation, will follow up with you. Guerda Nuñez MD Infectious Diseases Specialist [facility] M [phone] Subjective Date of service: 12/23/17 Principal diagnosis: septic shock Interval history: On BIPAP, agitated, wants to pull her lines/BIPAP, still on levophed at 10. No fever. Microbiology: Blood cultures: 12/20 E coli 3 of 4 bottles 12/22 ngtd Urine cultures: 12/20 E coli 10-100K Current Antimicrobials: meropenem Vancomycin Previous Antimicrobials: Zosyn Objective - Exam Narrative Exam: General appearance: agitated in mild resp distress BIPAP Eyes: anicteric sclerae, moist conjunctivae; no lid-lag; PERRLA HENT: Atraumatic; oropharynx with BIPAP mask Neck: Trachea midline; supple, no thyromegaly or lymphadenopathy Lungs: abeba scattered rhonchi CV: RRR, no murmurs Abdomen: Soft, non-tender Extremities: No peripheral edema or extremity lymphadenopathy Skin: Multiple nodular lesions in the arms, legs and abdominal wall Psych: somnolent . Neuro: somnolent Lines: - Constitutional Vitals: Vital Signs Temp Pulse Resp BP Pulse Ox 98.9 F 103 H 24 121/79 98 12/23/17 04:00 12/23/17 08:00 12/23/17 08:00 12/23/17 08:00 12/23/17 08:00 Temperature -Last 24 Hours Temperature 98.9 F Temperature 98.7 F Temperature 98.6 F Temperature 98.4 F - Labs CBC & Chem 7: 12/23/17 05:30 12/23/17 05:30 Labs: Abnormal lab results 12/21/17 12/22/17 12/22/17 Range/Units 19:32 10:09 10:12 WBC (4.5-11.0) K/mm3 MCV (79-97) fl MCH (28-32) pg RDW (13.2-15.2) % Plt Count (140-440) K/mm3 POC ABG pH 7.180 L (7.35-7.45) POC ABG pCO2 (35-45) POC ABG pO2 117 H (80-105) Carbon Dioxide (22-30) mmol/L BUN (7-17) mg/dL Creatinine (0.7-1.2) mg/dL Glucose (65-100) mg/dL POC Glucose 160 H 185 H (70-105) Calcium (8.4-10.2) mg/dL Total Bilirubin (0.1-1.2) mg/dL AST (5-40) units/L ALT (7-56) units/L Total Protein (6.3-8.2) g/dL Albumin (3.9-5) g/dL 12/22/17 12/22/17 12/22/17 Range/Units 12:19 14:23 14:27 WBC (4.5-11.0) K/mm3 MCV (79-97) fl MCH (28-32) pg RDW (13.2-15.2) % Plt Count (140-440) K/mm3 POC ABG pH 7.241 L 7.285 L (7.35-7.45) POC ABG pCO2 33.9 L 29.9 L (35-45) POC ABG pO2 45 L 117 H (80-105) Carbon Dioxide (22-30) mmol/L BUN (7-17) mg/dL Creatinine (0.7-1.2) mg/dL Glucose (65-100) mg/dL POC Glucose 220 H (70-105) Calcium (8.4-10.2) mg/dL Total Bilirubin (0.1-1.2) mg/dL AST (5-40) units/L ALT (7-56) units/L Total Protein (6.3-8.2) g/dL Albumin (3.9-5) g/dL 12/22/17 12/22/17 12/22/17 Range/Units 17:22 19:58 21:18 WBC (4.5-11.0) K/mm3 MCV (79-97) fl MCH (28-32) pg RDW (13.2-15.2) % Plt Count (140-440) K/mm3 POC ABG pH 7.338 L (7.35-7.45) POC ABG pCO2 27.6 L (35-45) POC ABG pO2 167 H (80-105) Carbon Dioxide (22-30) mmol/L BUN (7-17) mg/dL Creatinine (0.7-1.2) mg/dL Glucose (65-100) mg/dL POC Glucose 197 H 189 H (70-105) Calcium (8.4-10.2) mg/dL Total Bilirubin (0.1-1.2) mg/dL AST (5-40) units/L ALT (7-56) units/L Total Protein (6.3-8.2) g/dL Albumin (3.9-5) g/dL 12/23/17 12/23/17 Range/Units 05:30 05:30 WBC 14.5 H (4.5-11.0) K/mm3 MCV 75 L (79-97) fl MCH 26 L (28-32) pg RDW 16.7 H (13.2-15.2) % Plt Count 26 L (140-440) K/mm3 POC ABG pH (7.35-7.45) POC ABG pCO2 (35-45) POC ABG pO2 (80-105) Carbon Dioxide 15 L (22-30) mmol/L BUN 49 H (7-17) mg/dL Creatinine 3.5 H (0.7-1.2) mg/dL Glucose 123 H (65-100) mg/dL POC Glucose (70-105) Calcium 6.7 L (8.4-10.2) mg/dL Total Bilirubin 3.60 H (0.1-1.2) mg/dL AST 93 H (5-40) units/L ALT 58 H (7-56) units/L Total Protein 4.5 L (6.3-8.2) g/dL Albumin 2.0 L (3.9-5) g/dL
[2017-12-23] MEDS: VITAMIN B-1 PO SCH (10:00)
[2017-12-23] MEDS: SODIUM CHLORIDE FLUSH SYRINGE 10 ML IV SCH ×2 (10:00→22:03)
[2017-12-23] MEDS: PEPCID IV SCH ×2 (10:08→22:03)
--- NOTE | 2017-12-23 10:12 | Progress Note ---
Assessment and Plan Assessment and plan: 52-year-old woman with a history of hypertension, diabetes comes to emergency room with complaints of fever, nausea vomiting and diarrhea that started yesterday. She's had 4 episodes of diarrhea today, stool is less watery. She also complained of abdominal pain on the left lower quadrant and lower back pain which she describes as sharp pain, intermittent in nature and lasted for a few seconds, intensity 6/10, no radiation, she cannot identify exacerbating or relieving factor. Sons at bedside are translators. The patient took that one dose of antibiotic this morning, she does not know the name of the antibiotic. 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 scabies Acute encephalopathy Gastroenteritis, viral Thrombocytopenia Plan Continue ICU care Antibiotics changed from IV Zosyn, vancomycin, to merrem, MONITOR LIVER ENZYMES US OF THE LIVER Nephrology consult IF NO improvement, may need to biopsy lymphnodes per IR not optimal candidate for nephrostomy tube due to minimally distented collecting system and thrombocytopenia. Initiated DKA protocol with IV fluids, insulin drip Transition to long acting once gap closed permethrin cream fro presumed scabies Per ID Contact Isolation Monitor serial fingerstick, electrolyte Check stool studies SON advised of findings DVT prophylaxis GUARDED PROGNOSIS The high probability of a clinically significant, sudden or life threatening deterioration of the [pulmonary, Renal, infectious] system(s) required my full and direct attention, intervention and personal management. The aggregate critical care time was [35] minutes. This time is in addition to time spent performing reported procedures but includes the following: [X] Data Review and interpretation [X] Patient assessment and monitoring of vital signs [X] Documentation [X] Medication orders and management History Interval history: Patient seen and examined, Improved, respiratory status but poor urine output. Still restless, mental status improving. Hospitalist Physical - Physical exam Narrative exam: VITAL SIGNS: Reviewed. GENERAL: The patient appeared well nourished and normally developed although was lethargic. Vital signs as documented. HEAD: No signs of head trauma. EYES: Pupils are equal. Extraocular motions intact. EARS: Hearing grossly intact. MOUTH: Oropharynx is normal. NECK: No adenopathy, no JVD. CHEST: Chest with diminished breath sounds bilaterally. No wheezes, rales, or rhonchi. CARDIAC: Regular rate and rhythm. S1 and S2, without murmurs, gallops, or rubs. VASCULAR: No Edema. Peripheral pulses normal and equal in all extremities. ABDOMEN: Soft, without detectable tenderness. No sign of distention. No rebound or guarding, and no masses palpated. Bowel Sounds normal. MUSCULOSKELETAL: Good range of motion of all major joints. Extremities without clubbing, cyanosis or edema. NEUROLOGIC EXAM: Lethargic but arousable. No focal sensory or strength deficits. Speech normal. Follows commands. PSYCHIATRIC: Mood normal. SKIN: Multiple punctate lesions covering the whole body. - Constitutional Vitals: Temp Pulse Resp BP Pulse Ox 98.9 F 103 H 24 121/79 98 12/23/17 04:00 12/23/17 08:00 12/23/17 08:00 12/23/17 08:00 12/23/17 08:00 Results - Labs CBC & Chem 7: 12/23/17 05:30 12/23/17 05:30 Labs: Laboratory Last Values WBC 14.5 K/mm3 (4.5-11.0) H 12/23/17 05:30 RBC 4.09 M/mm3 (3.65-5.03) 12/23/17 05:30 Hgb 10.5 gm/dl (10.1-14.3) 12/23/17 05:30 Hct 30.8 % (30.3-42.9) 12/23/17 05:30 MCV 75 fl (79-97) L 12/23/17 05:30 MCH 26 pg (28-32) L 12/23/17 05:30 MCHC 34 % (30-34) 12/23/17 05:30 RDW 16.7 % (13.2-15.2) H 12/23/17 05:30 Plt Count 26 K/mm3 (140-440) L 12/23/17 05:30 Add Manual Diff Complete 12/20/17 23:35 Total Counted 100 12/20/17 23:35 Seg Neuts % (Manual) 76.0 % (40.0-70.0) H 12/20/17 23:35 Band Neutrophils % 13.0 % 12/20/17 23:35 Lymphocytes % (Manual) 6.0 % (13.4-35.0) L 12/20/17 23:35 Reactive Lymphs % (Man) 0 % 12/20/17 23:35 Monocytes % (Manual) 1.0 % (0.0-7.3) 12/20/17 23:35 Eosinophils % (Manual) 0 % (0.0-4.3) 12/20/17 23:35 Basophils % (Manual) 0 % (0.0-1.8) 12/20/17 23:35 Metamyelocytes % 1.0 % 12/20/17 23:35 Myelocytes % 3.0 % 12/20/17 23:35 Promyelocytes % 0 % 12/20/17 23:35 Blast Cells % 0 % 12/20/17 23:35 Nucleated RBC % Not Reportable 12/20/17 23:35 Seg Neutrophils # Man 8.2 K/mm3 (1.8-7.7) H 12/20/17 23:35 Band Neutrophils # 1.4 K/mm3 12/20/17 23:35 Lymphocytes # (Manual) 0.6 K/mm3 (1.2-5.4) L 12/20/17 23:35 Abs React Lymphs (Man) 0.0 K/mm3 12/20/17 23:35 Monocytes # (Manual) 0.1 K/mm3 (0.0-0.8) 12/20/17 23:35 Eosinophils # (Manual) 0.0 K/mm3 (0.0-0.4) 12/20/17 23:35 Basophils # (Manual) 0.0 K/mm3 (0.0-0.1) 12/20/17 23:35 Metamyelocytes # 0.1 K/mm3 12/20/17 23:35 Myelocytes # 0.3 K/mm3 12/20/17 23:35 Promyelocytes # 0.0 K/mm3 12/20/17 23:35 Blast Cells # 0.0 K/mm3 12/20/17 23:35 WBC Morphology Not Reportable 12/20/17 23:35 Hypersegmented Neuts Not Reportable 12/20/17 23:35 Hyposegmented Neuts Not Reportable 12/20/17 23:35 Hypogranular Neuts Not Reportable 12/20/17 23:35 Smudge Cells Not Reportable 12/20/17 23:35 Toxic Granulation Not Reportable 12/20/17 23:35 Toxic Vacuolation Not Reportable 12/20/17 23:35 Dohle Bodies Not Reportable 12/20/17 23:35 Pelger-Huet Anomaly Not Reportable 12/20/17 23:35 Pooja Rods Not Reportable 12/20/17 23:35 Platelet Estimate Appears decreased 12/20/17 23:35 Clumped Platelets Not Reportable 12/20/17 23:35 Plt Clumps, EDTA Not Reportable 12/20/17 23:35 Large Platelets Not Reportable 12/20/17 23:35 Giant Platelets Not Reportable 12/20/17 23:35 Platelet Satelliting Not Reportable 12/20/17 23:35 Plt Morphology Comment Not Reportable 12/20/17 23:35 RBC Morphology Not Reportable 12/20/17 23:35 Dimorphic RBCs Not Reportable 12/20/17 23:35 Polychromasia Not Reportable 12/20/17 23:35 Hypochromasia 1+ 12/20/17 23:35 Poikilocytosis Not Reportable 12/20/17 23:35 Anisocytosis Not Reportable 12/20/17 23:35 Microcytosis Not Reportable 12/20/17 23:35 Macrocytosis Not Reportable 12/20/17 23:35 Spherocytes Not Reportable 12/20/17 23:35 Pappenheimer Bodies Not Reportable 12/20/17 23:35 Sickle Cells Not Reportable 12/20/17 23:35 Target Cells Not Reportable 12/20/17 23:35 Tear Drop Cells Not Reportable 12/20/17 23:35 Ovalocytes Not Reportable 12/20/17 23:35 Helmet Cells Not Reportable 12/20/17 23:35 Wood-Sundance Bodies Not Reportable 12/20/17 23:35 Gormania Rings Not Reportable 12/20/17 23:35 [place] Cells Not Reportable 12/20/17 23:35 Bite Cells Not Reportable 12/20/17 23:35 Crenated Cell Not Reportable 12/20/17 23:35 Elliptocytes Not Reportable 12/20/17 23:35 Acanthocytes (Spur) Not Reportable 12/20/17 23:35 Rouleaux Not Reportable 12/20/17 23:35 Hemoglobin C Crystals Not Reportable 12/20/17 23:35 Schistocytes Not Reportable 12/20/17 23:35 Malaria parasites Not Reportable 12/20/17 23:35 López Bodies Not Reportable 12/20/17 23:35 Hem Pathologist Commnt No 12/20/17 23:35 PT 18.5 Sec. (12.2-14.9) H 12/20/17 23:35 INR 1.45 (0.87-1.13) H 12/20/17 23:35 POC ABG pH 7.338 (7.35-7.45) L 12/22/17 19:58 POC ABG pCO2 27.6 (35-45) L 12/22/17 19:58 POC ABG pO2 167 (80-105) H 12/22/17 19:58 POC ABG HCO3 14.8 12/22/17 19:58 POC ABG Total CO2 16 12/22/17 19:58 POC ABG O2 Sat 99 12/22/17 19:58 POC ABG Base Excess -11 12/22/17 19:58 VBG pH 7.320 (7.320-7.420) 12/20/17 23:35 FiO2 40 % 12/22/17 19:58 Sodium 142 mmol/L (137-145) 12/23/17 05:30 Potassium 4.2 mmol/L (3.6-5.0) 12/23/17 05:30 Chloride 105.9 mmol/L (98-107) 12/23/17 05:30 Carbon Dioxide 15 mmol/L (22-30) L 12/23/17 05:30 Anion Gap 25 mmol/L 12/23/17 05:30 BUN 49 mg/dL (7-17) H 12/23/17 05:30 Creatinine 3.5 mg/dL (0.7-1.2) H 12/23/17 05:30 Estimated GFR 14 ml/min 12/23/17 05:30 BUN/Creatinine Ratio 14 % 12/23/17 05:30 Glucose 123 mg/dL (65-100) H 12/23/17 05:30 POC Glucose 189 (70-105) H 12/22/17 21:18 Lactic Acid 3.00 mmol/L (0.7-2.0) H* 12/22/17 07:56 Calcium 6.7 mg/dL (8.4-10.2) L 12/23/17 05:30 Phosphorus 1.90 mg/dL (2.5-4.5) L 12/21/17 01:11 Magnesium 1.30 mg/dL (1.7-2.3) L 12/21/17 01:11 Total Bilirubin 3.60 mg/dL (0.1-1.2) H 12/23/17 05:30 AST 93 units/L (5-40) H 12/23/17 05:30 ALT 58 units/L (7-56) H 12/23/17 05:30 Alkaline Phosphatase 98 units/L (35-129) 12/23/17 05:30 Total Creatine Kinase 117 units/L (30-135) 12/21/17 13:27 CK-MB (CK-2) 3.9 ng/mL (0.0-4.0) 12/21/17 13:27 CK-MB (CK-2) Rel Index 3.3 (0-4) 12/21/17 13:27 Troponin T 0.087 ng/mL (0.00-0.029) H 12/21/17 13:27 C-Reactive Protein 27.10 mg/dL (0.00-1.30) H 12/21/17 08:44 Total Protein 4.5 g/dL (6.3-8.2) L 12/23/17 05:30 Albumin 2.0 g/dL (3.9-5) L 12/23/17 05:30 Albumin/Globulin Ratio 0.8 % 12/23/17 05:30 Triglycerides 202 mg/dL (2-149) H 12/21/17 13:27 Cholesterol 57 mg/dL (50-199) 12/21/17 13:27 LDL Cholesterol Direct 6 mg/dL (50-130) L 12/21/17 13:27 HDL Cholesterol 10 mg/dL (40-59) L 12/21/17 13:27 Cholesterol/HDL Ratio 5.70 % 12/21/17 13:27 Urine Color Yellow (Yellow) 12/21/17 01:50 Urine Turbidity Clear (Clear) 12/21/17 01:50 Urine pH 5.0 (5.0-7.0) 12/21/17 01:50 Ur Specific [place] 1.015 (1.003-1.030) 12/21/17 01:50 Urine Protein <15 mg/dl mg/dL (Negative) 12/21/17 01:50 Urine Glucose (UA) >=500 mg/dL (Negative) 12/21/17 01:50 Urine Ketones Neg mg/dL (Negative) 12/21/17 01:50 Urine Blood Neg (Negative) 12/21/17 01:50 Urine Nitrite Neg (Negative) 12/21/17 01:50 Urine Bilirubin Neg (Negative) 12/21/17 01:50 Urine Urobilinogen < 2.0 mg/dL (<2.0) 12/21/17 01:50 Ur Leukocyte Esterase Sm (Negative) 12/21/17 01:50 Urine WBC (Auto) 38.0 /HPF (0.0-6.0) H 12/21/17 01:50 Urine RBC (Auto) 3.0 /HPF (0.0-6.0) 12/21/17 01:50 U Epithel Cells (Auto) 3.0 /HPF (0-13.0) 12/21/17 01:50 Urine Bacteria (Auto) 2+ /HPF (Negative) 12/21/17 01:50 Random Vancomycin 15.4 ug/mL (0-40.0) 12/22/17 Unknown C. difficile Toxin A&B Negative (Negative) 12/21/17 04:52 Hepatitis A IgM Ab Non-reactive (NonReactive) 12/21/17 08:44 Hep Bs Antigen Non-reactive (Negative) 12/21/17 08:44 Hep B Core IgM Ab Non-reactive (NonReactive) 12/21/17 08:44 Hepatitis C Antibody Non-reactive (NonReactive) 12/21/17 08:44
--- NOTE | 2017-12-23 10:56 | Progress Note ---
Assessment and Plan Severe sepsis with shock. Hyperglycemia and mild diabetic ketoacidosis. Possible urinary tract infection. E. Coli Bacteremia Nausea and vomiting. Diarrhea. Metabolic acidosis. Hypophosphatemia. Hypomagnesemia. Acute kidney injury, possibly on chronic. Thrombocytopenia - continue antibiotics per ID recs (changed to Merrem) - continue to monitor liver enzymes - follow USS RUQ report - nephrology to see in consult - suspicion for scablies and placed in contact isolation - continue long acting insulin and SSI - continue GI & VTE prophylaxis - continue other care per attending / other consultants - replace electrolytes .. 35' Subjective Date of service: 12/23/17 Principal diagnosis: Sever Sepsis with septic shock; DKA; UTI Interval history: Patient is seen today for: Sever Sepsis with septic shock; DKA; UTI Seen and examined at bedside; 24hour events reviewed; nursing and respiratory care staff consulted; no adverse overnight events reported to me; resting in bed ; caregiver in room; no N/V/F/C; no chest pains or palpitations Objective Vital Signs - 12hr 12/22/17 12/22/17 12/22/17 23:00 23:09 23:15 Temperature Pulse Rate 101 H 99 H 98 H Respiratory 13 14 13 Rate Blood Pressure 115/74 115/74 119/72 O2 Sat by Pulse 100 99 99 Oximetry 12/22/17 12/22/17 12/22/17 23:30 23:42 23:45 Temperature Pulse Rate 102 H 74 102 H Respiratory 25 H 24 22 Rate Blood Pressure 125/83 125/83 135/87 O2 Sat by Pulse 100 100 98 Oximetry 12/23/17 12/23/17 12/23/17 00:00 00:15 00:30 Temperature 98.7 F Pulse Rate 100 H 99 H 100 H Respiratory 17 16 17 Rate Blood Pressure 120/77 116/79 105/75 O2 Sat by Pulse 99 98 98 Oximetry 12/23/17 12/23/17 12/23/17 00:46 01:00 01:15 Temperature Pulse Rate 103 H 101 H 100 H Respiratory 27 H 16 17 Rate Blood Pressure 138/82 118/79 130/82 O2 Sat by Pulse 97 94 97 Oximetry 12/23/17 12/23/17 12/23/17 01:30 01:45 02:00 Temperature Pulse Rate 101 H 98 H 101 H Respiratory 26 H 17 19 Rate Blood Pressure 130/82 125/86 125/86 O2 Sat by Pulse 97 92 95 Oximetry 12/23/17 12/23/17 12/23/17 02:15 02:30 02:45 Temperature Pulse Rate 101 H 101 H 101 H Respiratory 22 18 21 Rate Blood Pressure 133/86 133/86 131/86 O2 Sat by Pulse 97 96 97 Oximetry 12/23/17 12/23/17 12/23/17 03:00 03:15 03:30 Temperature Pulse Rate 99 H 95 H 108 H Respiratory 19 19 28 H Rate Blood Pressure 133/83 134/87 134/87 O2 Sat by Pulse 97 91 94 Oximetry 12/23/17 12/23/17 12/23/17 03:45 04:00 04:15 Temperature 98.9 F Pulse Rate 92 H 98 H 100 H Respiratory 21 21 18 Rate Blood Pressure 123/80 124/85 134/85 O2 Sat by Pulse 95 96 96 Oximetry 12/23/17 12/23/17 12/23/17 04:30 04:45 05:00 Temperature Pulse Rate 100 H 99 H 101 H Respiratory 18 19 17 Rate Blood Pressure 134/85 149/79 149/79 O2 Sat by Pulse 97 92 95 Oximetry 12/23/17 12/23/17 12/23/17 05:15 05:16 05:30 Temperature Pulse Rate 101 H 101 H 99 H Respiratory 17 17 Rate Blood Pressure 116/83 114/76 O2 Sat by Pulse 96 95 Oximetry 12/23/17 12/23/17 12/23/17 05:45 06:00 06:15 Temperature Pulse Rate 99 H 96 H 95 H Respiratory 17 16 16 Rate Blood Pressure 121/77 124/83 121/79 O2 Sat by Pulse 98 98 98 Oximetry 12/23/17 08:00 Temperature Pulse Rate 103 H Respiratory 24 Rate Blood Pressure 121/79 O2 Sat by Pulse 98 Oximetry Constitutional: appears uncomfortable, other (middle aged female; looks chronically ill, normocephalic and atraumatic) Eyes: non-icteric ENT: oropharynx moist, other (mallampatti II) Neck: supple, no lymphadenopathy, no JVD, other (no thyromegaly) Effort: mildly labored Ascultation: Bilateral: diminished breath sounds, rhonchi Percussion: Bilateral: not dull Cardiovascular: regular rate and rhythm, other (No R/M) Gastrointestinal: normoactive bowel sounds, soft, non-tender, non-distended, other (No palpable HSM) Integumentary: rash Extremities: no cyanosis, no edema, pink and warm, pulses normal, no ischemia or petechiae Neurologic: non-focal exam, pupils equal and round, CN II-XII normal Psychiatric: mood appropriate, affect normal CBC and BMP: 01/01/18 04:52 01/02/18 Unknown ABG, PT/INR, D-dimer: ABG POC ABG pH 7.338 (7.35-7.45) L 12/22/17 19:58 POC ABG pCO2 27.6 (35-45) L 12/22/17 19:58 POC ABG pO2 167 (80-105) H 12/22/17 19:58 POC ABG HCO3 14.8 12/22/17 19:58 POC ABG Total CO2 16 12/22/17 19:58 POC ABG O2 Sat 99 12/22/17 19:58 PT/INR, D-dimer PT 18.5 Sec. (12.2-14.9) H 12/20/17 23:35 INR 1.45 (0.87-1.13) H 12/20/17 23:35 Abnormal lab findings: Abnormal Labs 12/20/17 12/20/17 12/20/17 23:35 23:35 23:35 WBC MCV 78 L MCH 26 L RDW 15.7 H Plt Count 77 L Seg Neuts % (Manual) 76.0 H Lymphocytes % (Manual) 6.0 L Seg Neutrophils # Man 8.2 H Lymphocytes # (Manual) 0.6 L PT 18.5 H INR 1.45 H POC ABG pH POC ABG pCO2 POC ABG pO2 Sodium 130 L Potassium 3.5 L Chloride 92.3 L Carbon Dioxide 17 L BUN 27 H Creatinine 2.2 H Glucose 535 H* POC Glucose Lactic Acid Calcium 7.0 L Phosphorus Magnesium Total Bilirubin AST ALT Alkaline Phosphatase 173 H Troponin T C-Reactive Protein Total Protein 5.1 L Albumin 2.6 L Triglycerides LDL Cholesterol Direct HDL Cholesterol Urine WBC (Auto) 12/20/17 12/21/17 12/21/17 23:35 01:11 01:11 WBC MCV MCH RDW Plt Count Seg Neuts % (Manual) Lymphocytes % (Manual) Seg Neutrophils # Man Lymphocytes # (Manual) PT INR POC ABG pH POC ABG pCO2 POC ABG pO2 Sodium Potassium Chloride Carbon Dioxide BUN Creatinine Glucose POC Glucose Lactic Acid 8.30 H* 8.10 H* Calcium Phosphorus 1.90 L Magnesium 1.30 L Total Bilirubin AST ALT Alkaline Phosphatase Troponin T C-Reactive Protein Total Protein Albumin Triglycerides LDL Cholesterol Direct HDL Cholesterol Urine WBC (Auto) 12/21/17 12/21/17 12/21/17 01:11 01:50 02:09 WBC MCV MCH RDW Plt Count Seg Neuts % (Manual) Lymphocytes % (Manual) Seg Neutrophils # Man Lymphocytes # (Manual) PT INR POC ABG pH POC ABG pCO2 POC ABG pO2 Sodium 133 L Potassium 3.3 L Chloride 97.9 L Carbon Dioxide 15 L BUN 26 H Creatinine 2.1 H Glucose 504 H* POC Glucose 391 H Lactic Acid Calcium 6.4 L Phosphorus Magnesium Total Bilirubin AST ALT Alkaline Phosphatase Troponin T C-Reactive Protein Total Protein Albumin Triglycerides LDL Cholesterol Direct HDL Cholesterol Urine WBC (Auto) 38.0 H 12/21/17 12/21/17 12/21/17 03:10 03:26 05:15 WBC MCV MCH RDW Plt Count Seg Neuts % (Manual) Lymphocytes % (Manual) Seg Neutrophils # Man Lymphocytes # (Manual) PT INR POC ABG pH POC ABG pCO2 POC ABG pO2 Sodium 135 L Potassium 3.3 L Chloride Carbon Dioxide 14 L BUN 25 H Creatinine 1.9 H Glucose 443 H POC Glucose 389 H 407 H Lactic Acid Calcium 6.0 L Phosphorus Magnesium Total Bilirubin AST ALT Alkaline Phosphatase Troponin T C-Reactive Protein Total Protein Albumin Triglycerides LDL Cholesterol Direct HDL Cholesterol Urine WBC (Auto) 12/21/17 12/21/17 12/21/17 06:00 06:00 06:09 WBC MCV MCH RDW Plt Count Seg Neuts % (Manual) Lymphocytes % (Manual) Seg Neutrophils # Man Lymphocytes # (Manual) PT INR POC ABG pH POC ABG pCO2 POC ABG pO2 Sodium Potassium 3.4 L Chloride Carbon Dioxide 12 L BUN 28 H Creatinine 1.9 H Glucose 283 H POC Glucose 326 H Lactic Acid 7.90 H* Calcium 6.0 L Phosphorus Magnesium Total Bilirubin AST ALT Alkaline Phosphatase Troponin T C-Reactive Protein Total Protein Albumin Triglycerides LDL Cholesterol Direct HDL Cholesterol Urine WBC (Auto) 12/21/17 12/21/17 12/21/17 07:23 08:16 08:44 WBC MCV MCH RDW Plt Count Seg Neuts % (Manual) Lymphocytes % (Manual) Seg Neutrophils # Man Lymphocytes # (Manual) PT INR POC ABG pH POC ABG pCO2 POC ABG pO2 Sodium Potassium 3.3 L Chloride 107.8 H Carbon Dioxide 14 L BUN 29 H Creatinine 2.0 H Glucose 140 H POC Glucose 267 H 257 H Lactic Acid Calcium 6.2 L Phosphorus Magnesium Total Bilirubin AST ALT Alkaline Phosphatase Troponin T C-Reactive Protein Total Protein Albumin Triglycerides LDL Cholesterol Direct HDL Cholesterol Urine WBC (Auto) 12/21/17 12/21/17 12/21/17 08:44 08:44 09:02 WBC MCV MCH RDW Plt Count Seg Neuts % (Manual) Lymphocytes % (Manual) Seg Neutrophils # Man Lymphocytes # (Manual) PT INR POC ABG pH POC ABG pCO2 POC ABG pO2 Sodium Potassium Chloride Carbon Dioxide BUN Creatinine Glucose POC Glucose 211 H Lactic Acid 6.40 H* Calcium Phosphorus Magnesium Total Bilirubin AST ALT Alkaline Phosphatase Troponin T C-Reactive Protein 27.10 H Total Protein Albumin Triglycerides LDL Cholesterol Direct HDL Cholesterol Urine WBC (Auto) 12/21/17 12/21/17 12/21/17 09:35 10:27 11:57 WBC MCV MCH RDW Plt Count Seg Neuts % (Manual) Lymphocytes % (Manual) Seg Neutrophils # Man Lymphocytes # (Manual) PT INR POC ABG pH POC ABG pCO2 POC ABG pO2 Sodium Potassium Chloride Carbon Dioxide BUN Creatinine Glucose POC Glucose 182 H 142 H 134 H Lactic Acid Calcium Phosphorus Magnesium Total Bilirubin AST ALT Alkaline Phosphatase Troponin T C-Reactive Protein Total Protein Albumin Triglycerides LDL Cholesterol Direct HDL Cholesterol Urine WBC (Auto) 12/21/17 12/21/17 12/21/17 13:27 15:20 17:39 WBC MCV MCH RDW Plt Count Seg Neuts % (Manual) Lymphocytes % (Manual) Seg Neutrophils # Man Lymphocytes # (Manual) PT INR POC ABG pH POC ABG pCO2 POC ABG pO2 Sodium Potassium Chloride Carbon Dioxide BUN Creatinine Glucose POC Glucose 161 H 189 H Lactic Acid Calcium Phosphorus Magnesium Total Bilirubin AST ALT Alkaline Phosphatase Troponin T 0.087 H C-Reactive Protein Total Protein Albumin Triglycerides 202 H LDL Cholesterol Direct 6 L HDL Cholesterol 10 L Urine WBC (Auto) 12/21/17 12/21/17 12/21/17 17:47 19:32 20:56 WBC MCV MCH RDW Plt Count Seg Neuts % (Manual) Lymphocytes % (Manual) Seg Neutrophils # Man Lymphocytes # (Manual) PT INR POC ABG pH POC ABG pCO2 POC ABG pO2 Sodium Potassium Chloride 107.2 H Carbon Dioxide 14 L BUN 32 H Creatinine 2.4 H Glucose 171 H POC Glucose 160 H 136 H Lactic Acid Calcium 6.6 L Phosphorus Magnesium Total Bilirubin AST ALT Alkaline Phosphatase Troponin T C-Reactive Protein Total Protein Albumin Triglycerides LDL Cholesterol Direct HDL Cholesterol Urine WBC (Auto) 12/21/17 12/22/17 12/22/17 21:12 00:29 03:08 WBC MCV MCH RDW Plt Count Seg Neuts % (Manual) Lymphocytes % (Manual) Seg Neutrophils # Man Lymphocytes # (Manual) PT INR POC ABG pH 7.152 L 7.241 L POC ABG pCO2 28.1 L POC ABG pO2 62 L 113 H Sodium Potassium Chloride Carbon Dioxide BUN Creatinine Glucose POC Glucose 109 H Lactic Acid Calcium Phosphorus Magnesium Total Bilirubin AST ALT Alkaline Phosphatase Troponin T C-Reactive Protein Total Protein Albumin Triglycerides LDL Cholesterol Direct HDL Cholesterol Urine WBC (Auto) 12/22/17 12/22/17 12/22/17 04:29 04:30 04:30 WBC 21.9 H MCV 77 L MCH 25 L RDW 16.6 H Plt Count 57 L Seg Neuts % (Manual) Lymphocytes % (Manual) Seg Neutrophils # Man Lymphocytes # (Manual) PT INR POC ABG pH POC ABG pCO2 POC ABG pO2 Sodium Potassium Chloride Carbon Dioxide 14 L BUN 37 H Creatinine 2.7 H Glucose 145 H POC Glucose 139 H Lactic Acid Calcium 6.4 L Phosphorus Magnesium Total Bilirubin AST ALT Alkaline Phosphatase Troponin T C-Reactive Protein Total Protein Albumin Triglycerides LDL Cholesterol Direct HDL Cholesterol Urine WBC (Auto) 12/22/17 12/22/17 12/22/17 04:30 05:24 05:54 WBC MCV MCH RDW Plt Count Seg Neuts % (Manual) Lymphocytes % (Manual) Seg Neutrophils # Man Lymphocytes # (Manual) PT INR POC ABG pH POC ABG pCO2 POC ABG pO2 Sodium Potassium Chloride Carbon Dioxide BUN Creatinine Glucose POC Glucose 144 H 145 H Lactic Acid 3.30 H* Calcium Phosphorus Magnesium Total Bilirubin AST ALT Alkaline Phosphatase Troponin T C-Reactive Protein Total Protein Albumin Triglycerides LDL Cholesterol Direct HDL Cholesterol Urine WBC (Auto) 12/22/17 12/22/17 12/22/17 07:56 07:56 10:09 WBC MCV MCH RDW Plt Count Seg Neuts % (Manual) Lymphocytes % (Manual) Seg Neutrophils # Man Lymphocytes # (Manual) PT INR POC ABG pH 7.180 L POC ABG pCO2 POC ABG pO2 117 H Sodium Potassium Chloride Carbon Dioxide 14 L BUN 39 H Creatinine 2.9 H Glucose 174 H POC Glucose Lactic Acid 3.00 H* Calcium 6.7 L Phosphorus Magnesium Total Bilirubin AST ALT Alkaline Phosphatase Troponin T C-Reactive Protein Total Protein Albumin Triglycerides LDL Cholesterol Direct HDL Cholesterol Urine WBC (Auto) 12/22/17 12/22/17 12/22/17 10:12 12:19 14:23 WBC MCV MCH RDW Plt Count Seg Neuts % (Manual) Lymphocytes % (Manual) Seg Neutrophils # Man Lymphocytes # (Manual) PT INR POC ABG pH 7.241 L 7.285 L POC ABG pCO2 33.9 L 29.9 L POC ABG pO2 45 L 117 H Sodium Potassium Chloride Carbon Dioxide BUN Creatinine Glucose POC Glucose 185 H Lactic Acid Calcium Phosphorus Magnesium Total Bilirubin AST ALT Alkaline Phosphatase Troponin T C-Reactive Protein Total Protein Albumin Triglycerides LDL Cholesterol Direct HDL Cholesterol Urine WBC (Auto) 12/22/17 12/22/17 12/22/17 14:27 17:22 19:58 WBC MCV MCH RDW Plt Count Seg Neuts % (Manual) Lymphocytes % (Manual) Seg Neutrophils # Man Lymphocytes # (Manual) PT INR POC ABG pH 7.338 L POC ABG pCO2 27.6 L POC ABG pO2 167 H Sodium Potassium Chloride Carbon Dioxide BUN Creatinine Glucose POC Glucose 220 H 197 H Lactic Acid Calcium Phosphorus Magnesium Total Bilirubin AST ALT Alkaline Phosphatase Troponin T C-Reactive Protein Total Protein Albumin Triglycerides LDL Cholesterol Direct HDL Cholesterol Urine WBC (Auto) 12/22/17 12/23/17 12/23/17 21:18 05:30 05:30 WBC 14.5 H MCV 75 L MCH 26 L RDW 16.7 H Plt Count 26 L Seg Neuts % (Manual) Lymphocytes % (Manual) Seg Neutrophils # Man Lymphocytes # (Manual) PT INR POC ABG pH POC ABG pCO2 POC ABG pO2 Sodium Potassium Chloride Carbon Dioxide 15 L BUN 49 H Creatinine 3.5 H Glucose 123 H POC Glucose 189 H Lactic Acid Calcium 6.7 L Phosphorus Magnesium Total Bilirubin 3.60 H AST 93 H ALT 58 H Alkaline Phosphatase Troponin T C-Reactive Protein Total Protein 4.5 L Albumin 2.0 L Triglycerides LDL Cholesterol Direct HDL Cholesterol Urine WBC (Auto) Chest x-ray: pending
[2017-12-23] MEDS ORDERED: ACTICIN TP ONE (12:00)
[2017-12-23] MEDS ORDERED: SODIUM BICARBONATE FEEDTUBE PRN (12:25)
[2017-12-23] MEDS ORDERED: SIMPLE SYRUP FEEDTUBE PRN ×2 (12:25)
[2017-12-23] MEDS ORDERED: PANCREAZE DR 10,500 UNIT FEEDTUBE PRN (12:25)
[2017-12-23] MEDS: MAXIPIME 2 GM in NACL 0.9% 20 ML IV SCH (12:38)
--- NOTE | 2017-12-23 14:21 | Consultation ---
History of Present Illness - Reason for Consult Consult date: 12/23/17 acute renal failure, metabolic acidosis - History of Present Illness the patient is a 52 year old woman with history significant for Hypertension and Diabetes who came to the ER with complaints of fever, nausea vomiting and diarrhea of one day duration. Patient is not able to provide any history and information was obtained from relatives at the bedside and previous documentations. She reported having watery diarrhea associated with left lower quadrant abd pain. Patient is on IV Levophed. Labs are significant for creatinine of 3.5 and Lactate of 3. Baseline renal function is unknown. Past History Past Medical History: diabetes, hypertension Social history: . denies: smoking, IV drug use Family history: no significant family history Medications and Allergies Allergies Allergy/AdvReac Type Severity Reaction Status Date / Time No Known Allergies Allergy Unverified 12/20/17 23:19 Home Medications Medication Instructions Recorded Confirmed Last Taken Type Losartan/Hydrochlorothiazide 1 each PO DAILY 12/21/17 12/21/17 Unknown History [Losartan-Hctz 50-12.5 mg Tab] glipiZIDE [Glipizide] 5 mg PO BID 12/21/17 12/21/17 Unknown History metFORMIN [Glucophage] 500 mg PO BID 12/21/17 12/21/17 Unknown History Active Meds: Active Medications Acetaminophen (Tylenol) 650 mg PO Q4H PRN PRN Reason: Pain MILD(1-3)/Fever >100.5/CHAVEZ Acetaminophen (Tylenol) 650 mg MA Q4H PRN PRN Reason: Pain MILD(1-3)/Fever >100.5/CHAVEZ Lipase/Protease/Amylase (Pancreaze Dr 10,500 Unit) 1 each FEEDTUBE PRN PRN PRN Reason: For Clogged Feeding Tube Dextrose (D50w (25gm) Syringe) 0 ml IV ONCE PRN PRN Reason: Hypoglycemia Famotidine (Pepcid) 10 mg IV BID LO Last Admin: 12/23/17 10:08 Dose: 10 mg Folic Acid (Folvite) 1 mg PO QDAY LO Norepinephrine (Levophed Drip 4 Mg/Ns 250 Ml) 4 mg in 250 mls @ 7.5 mls/hr IV TITR LO; Protocol Last Admin: 12/23/17 10:09 Dose: 7.5 mcg/min, 28.125 mls/hr Insulin Human Regular 100 (units/ Sodium Chloride) 100 mls @ 1 mls/hr IV TITR LO; Protocol Last Titration: 12/21/17 23:30 Dose: 0 units/hr, 0 mls/hr Sodium Chloride (Nacl 0.9% 1000 Ml) 1,000 mls @ 150 mls/hr IV DIRECT LO Last Infusion: 12/21/17 11:00 Dose: Infused Cefepime HCl 2 gm/ Sodium (Chloride) 20 mls @ 20 mls/10 min IV Q24HR LO; Protocol Last Admin: 12/23/17 12:38 Dose: 20 mls/10 min Sodium Bicarbonate 150 meq/ (Dextrose) 1,150 mls @ 100 mls/hr IV DIRECT LO Insulin Human Regular (Humulin R) 0 units SUB-Q ACHS LO; Protocol Last Admin: 12/23/17 12:35 Dose: Not Given Morphine Sulfate (Morphine) 2 mg IV Q4H PRN PRN Reason: Pain, Moderate (4-6) Last Admin: 12/23/17 10:08 Dose: 2 mg Multivitamins (Centrum Liq) 5 ml PO QDAY LO Ondansetron HCl (Zofran) 4 mg IV Q4H PRN PRN Reason: Nausea And Vomiting Last Admin: 12/22/17 01:40 Dose: 4 mg Permethrin (Acticin) 1 applic TP ONCE ONE Stop: 12/23/17 12:01 Last Admin: 12/23/17 12:34 Dose: 1 applic Simple Syrup (Simple Syrup) 15 ml FEEDTUBE PRN PRN PRN Reason: Hypoglycemia Simple Syrup (Simple Syrup) 30 ml FEEDTUBE PRN PRN PRN Reason: Hypoglycemia Sodium Bicarbonate (Sodium Bicarbonate) 325 mg FEEDTUBE PRN PRN PRN Reason: For Clogged Feeding Tube Sodium Chloride (Sodium Chloride Flush Syringe 10 Ml) 10 ml IV BID LO Last Admin: 12/22/17 22:11 Dose: 10 ml Sodium Chloride (Sodium Chloride Flush Syringe 10 Ml) 10 ml IV PRN PRN PRN Reason: LINE FLUSH Thiamine HCl (Vitamin B-1) 100 mg PO QDAY LO Review of Systems ROS unobtainable: due to mental status Exam - Vital Signs Vital signs: Vital Signs Temp Pulse Resp BP Pulse Ox 99.8 F H 105 H 18 59/38 97 12/20/17 23:22 12/20/17 23:22 12/20/17 23:22 12/20/17 23:22 12/20/17 23:22 - General Appearance General appearance: well-developed, appears stated age, other (barely arousable) EENT: ATNC, PERRL Neck: Present: neck supple Respiratory: Clear to Ascultation Heart: regular, S1S2, no murmurs Gastrointestinal: Present: normoactive bowel sounds. Absent: tenderness Integumentary: no rash Neurologic: other (grimaces, non-verbal, not following any command) Musculoskeletal: Present: other (no edema) Results - Lab Results 12/24/17 05:15 12/24/17 05:15 Most recent lab results Calcium 6.7 mg/dL (8.4-10.2) L 12/23/17 05:30 Phosphorus 1.90 mg/dL (2.5-4.5) L 12/21/17 01:11 Magnesium 1.30 mg/dL (1.7-2.3) L 12/21/17 01:11 - Image Kidney/bladder ultrasound: report reviewed Assessment and Plan 1. Acute kidney injury: Vasomotor / hemodynamic MARLENE in the setting of septic shock. Renal function continue to decline. Start on IV fluids. 2. Septic shock: GNR bacteremia. On Levophed and Cefepime. 3. Left hydronephrosis: Acute pyelonephritis. Improving. 4. DKA: Improving. 5. Acute Encephalopathy. 6. Thrombocytopenia. D/w multiple family members at the bedside.
[2017-12-23] MEDS: SODIUM BICARBONATE 150 MEQ in D5W 1,000 ML IV SCH (15:14)
[2017-12-23 15:35] LABS: Creatinine,Urine 65.1 mg/dL (0.1-20.0)
--- NOTE | 2017-12-23 16:13 | XRay Report ---
FINAL REPORT EXAM: XR ABDOMEN 1V AP HISTORY: dobhoff tube TECHNIQUE: Single view of the abdomen. PRIORS: CT abdomen pelvis chemical processor film December 21, 2017. FINDINGS: Enteric tube tip is within the stomach. Bowel gas appearance is nonspecific and non-distended. There is no pneumoperitoneum. There is no air fluid level. There is no obstructive pattern. Mild stool is present. IMPRESSION: Nonspecific nonobstructive bowel gas pattern. Enteric tube tip is within the stomach.
--- NOTE | 2017-12-23 19:37 | Ultrasound Report ---
FINAL REPORT EXAM: US ABDOMEN COMPLETE HISTORY: Hyperbilirubinemia TECHNIQUE: Standard ultrasound of the abdomen PRIORS: CT a/P 12/21/2017 FINDINGS: Examination of the gallbladder demonstrates diffuse wall thickening measuring up to 5 mm. There is a small amount of pericholecystic fluid. There is no evidence for gallstones or distension. No sonographic Estrella's sign is elicited. Common bile duct is normal in diameter measuring 4.2 mm. The liver is coarse echogenicity without focal abnormality or intrahepatic biliary dilatation. The pancreas is normal in thickness without focal abnormality or pancreatic duct dilatation. The spleen is normal in length measuring 10.2 cm and homogeneous in echogenicity without focal abnormalities. Examination of the kidneys demonstrates both to be normal in size and have normal cortical echogenicity and thickness. The right and left kidneys measure 11.3 cm and 12.7 cm in craniocaudal length, respectively. No evidence for calculi, hydronephrosis, or solid mass is seen in either kidney. There are echogenic non shadowing foci in the lower pole of the left kidney likely consistent with the air seen previously on CT. The inferior vena cava and aorta are normal. Maximum diameter of the aorta is 1.8 cm in its proximal portion. IMPRESSION: 1. Gallbladder has diffuse wall thickening with small amount of surrounding pericholecystic fluid. No evidence for cholelithiasis is seen. Findings can be seen with acute acalculous cholecystitis but arches nonspecific as they can also be seen with ascites and hypoproteinemia. 2. The liver has a coarse echogenicity without focal abnormality 3. Echogenic foci in the lower pole left kidney, probably corresponding to air bubble seen on prior CT.
[2017-12-24] MEDS: SODIUM BICARBONATE 150 MEQ in D5W 1,000 ML IV SCH ×2 (05:10→17:54)
[2017-12-24 05:41] LABS: Hematocrit 30.9 % (30.3-42.9); Hemoglobin 10.2 gm/dl (10.1-14.3); Mean Corpuscular HGB Conc 33 % (30-34); Mean Corpuscular Volume 76 fl (79-97); Red Blood Count 4.05 M/mm3 (3.65-5.03); Red Cell Distribution Width 16.6 % (13.2-15.2)
[2017-12-24 05:44] LABS: Mean Corpuscular Hemoglobin 25 pg (28-32); Platelet Count 20 K/mm3 (140-440)
[2017-12-24 06:02] LABS: Albumin 1.9 g/dL (3.9-5); Calcium 7.2 mg/dL (8.4-10.2)
--- NOTE | 2017-12-24 06:46 | Progress Note ---
Assessment and Plan 1. Acute kidney injury: Vasomotor / hemodynamic MARLENE in the setting of septic shock. Renal function continue to decline. Continue bicarbonate drip. D/w her daughter at the bedside and her over the phone regarding the possibility of hemodialysis if the kidney function continue to decline. 2. Septic shock: E.Coli bacteremia. Off Levophed. On Cefepime. 3. Left hydronephrosis: Acute pyelonephritis. Improving. 4. DKA: Improving. 5. Acute Encephalopathy. 6. Thrombocytopenia. Subjective Date of service: 12/24/17 Principal diagnosis: septic shock Interval history: Patient was seen and examined at the bedside. Objective - Vital Signs Vital signs: Vital Signs - 12hr 12/23/17 12/23/17 12/23/17 19:00 19:15 19:30 Temperature Pulse Rate 95 H 94 H 100 H Respiratory 22 16 15 Rate Blood Pressure 107/70 99/56 99/66 O2 Sat by Pulse Oximetry 12/23/17 12/23/17 12/23/17 19:45 20:00 20:15 Temperature 97.3 F L Pulse Rate 102 H 98 H 102 H Respiratory 18 17 16 Rate Blood Pressure 108/67 107/71 107/63 O2 Sat by Pulse Oximetry 12/23/17 12/23/17 12/23/17 20:31 20:45 21:00 Temperature Pulse Rate 99 H 100 H 99 H Respiratory 16 18 21 Rate Blood Pressure 104/68 107/79 111/75 O2 Sat by Pulse Oximetry 12/23/17 12/23/17 12/23/17 21:15 21:20 21:30 Temperature Pulse Rate 100 H 94 H 99 H Respiratory 21 22 18 Rate Blood Pressure 126/75 126/93 129/79 O2 Sat by Pulse 100 Oximetry 12/23/17 12/23/17 12/23/17 21:45 22:00 22:15 Temperature Pulse Rate 102 H 97 H 91 H Respiratory 19 17 21 Rate Blood Pressure 126/93 112/71 128/74 O2 Sat by Pulse 100 100 Oximetry 12/23/17 12/23/17 12/23/17 22:30 22:45 22:50 Temperature Pulse Rate 99 H 97 H 97 H Respiratory 19 15 22 Rate Blood Pressure 132/81 123/77 126/75 O2 Sat by Pulse 100 100 100 Oximetry 12/23/17 12/23/17 12/23/17 23:01 23:15 23:27 Temperature Pulse Rate 101 H 103 H 97 H Respiratory 17 15 20 Rate Blood Pressure 156/88 156/88 133/82 O2 Sat by Pulse 100 100 100 Oximetry 12/23/17 12/23/17 12/24/17 23:30 23:45 00:00 Temperature 97.5 F L Pulse Rate 98 H 99 H Respiratory 20 19 Rate Blood Pressure 147/94 150/84 O2 Sat by Pulse 100 100 Oximetry 12/24/17 12/24/17 12/24/17 00:01 00:15 00:30 Temperature Pulse Rate 100 H 102 H 103 H Respiratory 17 22 17 Rate Blood Pressure 144/90 147/94 164/98 O2 Sat by Pulse 100 100 100 Oximetry 12/24/17 12/24/17 12/24/17 00:45 00:54 01:00 Temperature Pulse Rate 103 H 98 H 102 H Respiratory 22 20 22 Rate Blood Pressure 153/92 152/92 143/88 O2 Sat by Pulse 99 100 100 Oximetry 12/24/17 12/24/17 12/24/17 01:15 01:30 01:45 Temperature Pulse Rate 98 H 99 H 101 H Respiratory 20 19 19 Rate Blood Pressure 130/82 137/84 113/77 O2 Sat by Pulse 99 100 Oximetry 12/24/17 12/24/17 12/24/17 02:00 02:15 02:30 Temperature Pulse Rate 96 H 99 H 95 H Respiratory 21 20 22 Rate Blood Pressure 113/77 128/83 129/80 O2 Sat by Pulse 100 100 100 Oximetry 12/24/17 12/24/17 12/24/17 02:45 03:00 03:15 Temperature Pulse Rate 94 H 95 H 92 H Respiratory 21 18 20 Rate Blood Pressure 123/79 119/77 117/81 O2 Sat by Pulse 100 100 Oximetry 12/24/17 12/24/17 12/24/17 03:30 03:45 03:50 Temperature 98.1 F Pulse Rate 95 H 95 H Respiratory 20 21 Rate Blood Pressure 127/83 127/77 O2 Sat by Pulse 100 91 Oximetry 12/24/17 12/24/17 12/24/17 04:00 04:15 04:30 Temperature Pulse Rate 96 H 98 H 92 H Respiratory 20 16 21 Rate Blood Pressure 115/77 127/83 126/81 O2 Sat by Pulse 100 100 100 Oximetry 12/24/17 12/24/17 12/24/17 04:45 05:00 05:15 Temperature Pulse Rate 93 H 93 H 91 H Respiratory 22 20 18 Rate Blood Pressure 129/78 131/85 121/76 O2 Sat by Pulse 100 100 100 Oximetry 12/24/17 12/24/17 12/24/17 05:30 05:45 06:00 Temperature Pulse Rate 92 H 92 H 89 Respiratory 20 19 20 Rate Blood Pressure 121/83 128/78 108/77 O2 Sat by Pulse 100 100 100 Oximetry - General Appearance General appearance: well-developed, appears stated age, other (no distress) EENT: ATNC, PERRL Neck: supple Respiratory: Present: Clear to Ascultation Cardiology: regular, S1S2, no murmurs Gastrointestinal: normoactive bowel sounds, no tenderness Integumentary: no rash, warm and dry Neurologic: other (stuporous) Musculoskeletal: other (no edema) - Lab 12/24/17 05:15 12/24/17 05:15 Most recent lab results Calcium 7.2 mg/dL (8.4-10.2) L 12/24/17 05:15 Phosphorus 3.60 mg/dL (2.5-4.5) 12/24/17 05:15 Magnesium 2.00 mg/dL (1.7-2.3) 12/24/17 05:15 Urine Creatinine 65.1 mg/dL (0.1-20.0) H 12/23/17 15:13 Urine Sodium 26 mmol/L 12/23/17 15:13
--- NOTE | 2017-12-24 09:20 | Progress Note ---
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 MARLENE Left Hydronephrosis Fatty Liver Abnormal LFTs, mixed picture Skin rash Acute encephalopathy Gastroenteritis, viral Thrombocytopenia -NIPPV for work of breathing and for adjustment of minute ventilation for better acid-base -vasopressor support if needed to , keep MAP>65 -Add gram negative edilia coverage to therapy -VTE prophylaxis -Supplemental oxygen to keep O2 sats>90% -Agitation management -Accucheck with glycemic control - Discussed in detail with the at the bedside The high probability of a clinically significant, sudden or life threatening deterioration of the [pulmonary, Renal, infectious, cardiovascular ] system(s) required my full and direct attention, intervention and personal management. The aggregate critical care time was [35] minutes. This time is in addition to time spent performing reported procedures but includes the following: [X] Data Review and interpretation [X] Patient assessment and monitoring of vital signs [X] Documentation [X] Medication orders and management Subjective Date of service: 12/24/17 Principal diagnosis: septic shock, E.coli bacteremai Objective - Exam Narrative Exam: VITAL SIGNS: Reviewed. GENERAL: The patient appeared well nourished and normally developed although was lethargic. Vital signs as documented. HEAD: No signs of head trauma. EYES: Pupils are equal. Extraocular motions intact. EARS: Hearing grossly intact. MOUTH: Oropharynx is normal. NECK: No adenopathy, no JVD. CHEST: Chest with diminished breath sounds bilaterally. No wheezes, rales, or rhonchi. CARDIAC: Regular rate and rhythm. S1 and S2, without murmurs, gallops, or rubs. VASCULAR: No Edema. Peripheral pulses normal and equal in all extremities. ABDOMEN: Soft, without detectable tenderness. No sign of distention. No rebound or guarding, and no masses palpated. Bowel Sounds normal. MUSCULOSKELETAL: Good range of motion of all major joints. Extremities without clubbing, cyanosis or edema. NEUROLOGIC EXAM: Lethargic but arousable. No focal sensory or strength deficits. Speech normal. Follows commands. PSYCHIATRIC: Mood normal. SKIN: Multiple punctate lesions covering the whole body. Vital Signs - 12hr 12/23/17 12/23/17 12/23/17 21:20 21:30 21:45 Temperature Pulse Rate 94 H 99 H 102 H Respiratory 22 18 19 Rate Blood Pressure 126/93 129/79 126/93 O2 Sat by Pulse 100 Oximetry 12/23/17 12/23/17 12/23/17 22:00 22:15 22:30 Temperature Pulse Rate 97 H 91 H 99 H Respiratory 17 21 19 Rate Blood Pressure 112/71 128/74 132/81 O2 Sat by Pulse 100 100 100 Oximetry 12/23/17 12/23/17 12/23/17 22:45 22:50 23:01 Temperature Pulse Rate 97 H 97 H 101 H Respiratory 15 22 17 Rate Blood Pressure 123/77 126/75 156/88 O2 Sat by Pulse 100 100 100 Oximetry 12/23/17 12/23/17 12/23/17 23:15 23:27 23:30 Temperature Pulse Rate 103 H 97 H 98 H Respiratory 15 20 20 Rate Blood Pressure 156/88 133/82 147/94 O2 Sat by Pulse 100 100 100 Oximetry 12/23/17 12/24/17 12/24/17 23:45 00:00 00:01 Temperature 97.5 F L Pulse Rate 99 H 100 H Respiratory 19 17 Rate Blood Pressure 150/84 144/90 O2 Sat by Pulse 100 100 Oximetry 12/24/17 12/24/17 12/24/17 00:15 00:30 00:45 Temperature Pulse Rate 102 H 103 H 103 H Respiratory 22 17 22 Rate Blood Pressure 147/94 164/98 153/92 O2 Sat by Pulse 100 100 99 Oximetry 12/24/17 12/24/17 12/24/17 00:54 01:00 01:15 Temperature Pulse Rate 98 H 102 H 98 H Respiratory 20 22 20 Rate Blood Pressure 152/92 143/88 130/82 O2 Sat by Pulse 100 100 99 Oximetry 12/24/17 12/24/17 12/24/17 01:30 01:45 02:00 Temperature Pulse Rate 99 H 101 H 96 H Respiratory 19 19 21 Rate Blood Pressure 137/84 113/77 113/77 O2 Sat by Pulse 100 100 Oximetry 12/24/17 12/24/17 12/24/17 02:15 02:30 02:45 Temperature Pulse Rate 99 H 95 H 94 H Respiratory 20 22 21 Rate Blood Pressure 128/83 129/80 123/79 O2 Sat by Pulse 100 100 Oximetry 12/24/17 12/24/17 12/24/17 03:00 03:15 03:30 Temperature Pulse Rate 95 H 92 H 95 H Respiratory 18 20 20 Rate Blood Pressure 119/77 117/81 127/83 O2 Sat by Pulse 100 100 100 Oximetry 12/24/17 12/24/17 12/24/17 03:45 03:50 04:00 Temperature 98.1 F Pulse Rate 95 H 96 H Respiratory 21 20 Rate Blood Pressure 127/77 115/77 O2 Sat by Pulse 91 100 Oximetry 12/24/17 12/24/17 12/24/17 04:15 04:30 04:45 Temperature Pulse Rate 98 H 92 H 93 H Respiratory 16 21 22 Rate Blood Pressure 127/83 126/81 129/78 O2 Sat by Pulse 100 100 100 Oximetry 12/24/17 12/24/17 12/24/17 05:00 05:15 05:30 Temperature Pulse Rate 93 H 91 H 92 H Respiratory 20 18 20 Rate Blood Pressure 131/85 121/76 121/83 O2 Sat by Pulse 100 100 100 Oximetry 12/24/17 12/24/17 12/24/17 05:45 06:00 06:15 Temperature Pulse Rate 92 H 89 90 Respiratory 19 20 19 Rate Blood Pressure 128/78 108/77 108/84 O2 Sat by Pulse 100 100 100 Oximetry 12/24/17 12/24/17 12/24/17 06:30 06:45 07:00 Temperature Pulse Rate 93 H 90 92 H Respiratory 15 25 H 23 Rate Blood Pressure 113/81 121/79 113/82 O2 Sat by Pulse 100 100 Oximetry 12/24/17 12/24/17 12/24/17 07:15 07:30 07:45 Temperature Pulse Rate 77 89 93 H Respiratory 16 14 21 Rate Blood Pressure 106/73 122/81 125/85 O2 Sat by Pulse 99 100 100 Oximetry 12/24/17 12/24/17 12/24/17 08:00 08:15 08:30 Temperature 98 F Pulse Rate 89 92 H 87 Respiratory 18 20 22 Rate Blood Pressure 121/78 128/82 128/80 O2 Sat by Pulse 100 100 100 Oximetry 12/24/17 08:45 Temperature Pulse Rate 88 Respiratory 20 Rate Blood Pressure 119/80 O2 Sat by Pulse 100 Oximetry CBC and BMP: 12/25/17 05:55 12/25/17 05:55 ABG, PT/INR, D-dimer: ABG POC ABG pH 7.338 (7.35-7.45) L 12/22/17 19:58 POC ABG pCO2 27.6 (35-45) L 12/22/17 19:58 POC ABG pO2 167 (80-105) H 12/22/17 19:58 POC ABG HCO3 14.8 12/22/17 19:58 POC ABG Total CO2 16 12/22/17 19:58 POC ABG O2 Sat 99 12/22/17 19:58 PT/INR, D-dimer PT 18.5 Sec. (12.2-14.9) H 12/20/17 23:35 INR 1.45 (0.87-1.13) H 12/20/17 23:35 Abnormal lab findings: Abnormal Labs 12/20/17 12/20/17 12/20/17 23:35 23:35 23:35 WBC MCV 78 L MCH 26 L RDW 15.7 H Plt Count 77 L Seg Neuts % (Manual) 76.0 H Lymphocytes % (Manual) 6.0 L Seg Neutrophils # Man 8.2 H Lymphocytes # (Manual) 0.6 L PT 18.5 H INR 1.45 H POC ABG pH POC ABG pCO2 POC ABG pO2 Sodium 130 L Potassium 3.5 L Chloride 92.3 L Carbon Dioxide 17 L BUN 27 H Creatinine 2.2 H Glucose 535 H* POC Glucose Lactic Acid Calcium 7.0 L Phosphorus Magnesium Total Bilirubin AST ALT Alkaline Phosphatase 173 H Troponin T C-Reactive Protein Total Protein 5.1 L Albumin 2.6 L Triglycerides LDL Cholesterol Direct HDL Cholesterol Urine WBC (Auto) Urine Creatinine 12/20/17 12/21/17 12/21/17 23:35 01:11 01:11 WBC MCV MCH RDW Plt Count Seg Neuts % (Manual) Lymphocytes % (Manual) Seg Neutrophils # Man Lymphocytes # (Manual) PT INR POC ABG pH POC ABG pCO2 POC ABG pO2 Sodium Potassium Chloride Carbon Dioxide BUN Creatinine Glucose POC Glucose Lactic Acid 8.30 H* 8.10 H* Calcium Phosphorus 1.90 L Magnesium 1.30 L Total Bilirubin AST ALT Alkaline Phosphatase Troponin T C-Reactive Protein Total Protein Albumin Triglycerides LDL Cholesterol Direct HDL Cholesterol Urine WBC (Auto) Urine Creatinine 12/21/17 12/21/17 12/21/17 01:11 01:50 02:09 WBC MCV MCH RDW Plt Count Seg Neuts % (Manual) Lymphocytes % (Manual) Seg Neutrophils # Man Lymphocytes # (Manual) PT INR POC ABG pH POC ABG pCO2 POC ABG pO2 Sodium 133 L Potassium 3.3 L Chloride 97.9 L Carbon Dioxide 15 L BUN 26 H Creatinine 2.1 H Glucose 504 H* POC Glucose 391 H Lactic Acid Calcium 6.4 L Phosphorus Magnesium Total Bilirubin AST ALT Alkaline Phosphatase Troponin T C-Reactive Protein Total Protein Albumin Triglycerides LDL Cholesterol Direct HDL Cholesterol Urine WBC (Auto) 38.0 H Urine Creatinine 12/21/17 12/21/17 12/21/17 03:10 03:26 05:15 WBC MCV MCH RDW Plt Count Seg Neuts % (Manual) Lymphocytes % (Manual) Seg Neutrophils # Man Lymphocytes # (Manual) PT INR POC ABG pH POC ABG pCO2 POC ABG pO2 Sodium 135 L Potassium 3.3 L Chloride Carbon Dioxide 14 L BUN 25 H Creatinine 1.9 H Glucose 443 H POC Glucose 389 H 407 H Lactic Acid Calcium 6.0 L Phosphorus Magnesium Total Bilirubin AST ALT Alkaline Phosphatase Troponin T C-Reactive Protein Total Protein Albumin Triglycerides LDL Cholesterol Direct HDL Cholesterol Urine WBC (Auto) Urine Creatinine 12/21/17 12/21/17 12/21/17 06:00 06:00 06:09 WBC MCV MCH RDW Plt Count Seg Neuts % (Manual) Lymphocytes % (Manual) Seg Neutrophils # Man Lymphocytes # (Manual) PT INR POC ABG pH POC ABG pCO2 POC ABG pO2 Sodium Potassium 3.4 L Chloride Carbon Dioxide 12 L BUN 28 H Creatinine 1.9 H Glucose 283 H POC Glucose 326 H Lactic Acid 7.90 H* Calcium 6.0 L Phosphorus Magnesium Total Bilirubin AST ALT Alkaline Phosphatase Troponin T C-Reactive Protein Total Protein Albumin Triglycerides LDL Cholesterol Direct HDL Cholesterol Urine WBC (Auto) Urine Creatinine 12/21/17 12/21/17 12/21/17 07:23 08:16 08:44 WBC MCV MCH RDW Plt Count Seg Neuts % (Manual) Lymphocytes % (Manual) Seg Neutrophils # Man Lymphocytes # (Manual) PT INR POC ABG pH POC ABG pCO2 POC ABG pO2 Sodium Potassium 3.3 L Chloride 107.8 H Carbon Dioxide 14 L BUN 29 H Creatinine 2.0 H Glucose 140 H POC Glucose 267 H 257 H Lactic Acid Calcium 6.2 L Phosphorus Magnesium Total Bilirubin AST ALT Alkaline Phosphatase Troponin T C-Reactive Protein Total Protein Albumin Triglycerides LDL Cholesterol Direct HDL Cholesterol Urine WBC (Auto) Urine Creatinine 12/21/17 12/21/17 12/21/17 08:44 08:44 09:02 WBC MCV MCH RDW Plt Count Seg Neuts % (Manual) Lymphocytes % (Manual) Seg Neutrophils # Man Lymphocytes # (Manual) PT INR POC ABG pH POC ABG pCO2 POC ABG pO2 Sodium Potassium Chloride Carbon Dioxide BUN Creatinine Glucose POC Glucose 211 H Lactic Acid 6.40 H* Calcium Phosphorus Magnesium Total Bilirubin AST ALT Alkaline Phosphatase Troponin T C-Reactive Protein 27.10 H Total Protein Albumin Triglycerides LDL Cholesterol Direct HDL Cholesterol Urine WBC (Auto) Urine Creatinine 12/21/17 12/21/17 12/21/17 09:35 10:27 11:57 WBC MCV MCH RDW Plt Count Seg Neuts % (Manual) Lymphocytes % (Manual) Seg Neutrophils # Man Lymphocytes # (Manual) PT INR POC ABG pH POC ABG pCO2 POC ABG pO2 Sodium Potassium Chloride Carbon Dioxide BUN Creatinine Glucose POC Glucose 182 H 142 H 134 H Lactic Acid Calcium Phosphorus Magnesium Total Bilirubin AST ALT Alkaline Phosphatase Troponin T C-Reactive Protein Total Protein Albumin Triglycerides LDL Cholesterol Direct HDL Cholesterol Urine WBC (Auto) Urine Creatinine 12/21/17 12/21/17 12/21/17 13:27 15:20 17:39 WBC MCV MCH RDW Plt Count Seg Neuts % (Manual) Lymphocytes % (Manual) Seg Neutrophils # Man Lymphocytes # (Manual) PT INR POC ABG pH POC ABG pCO2 POC ABG pO2 Sodium Potassium Chloride Carbon Dioxide BUN Creatinine Glucose POC Glucose 161 H 189 H Lactic Acid Calcium Phosphorus Magnesium Total Bilirubin AST ALT Alkaline Phosphatase Troponin T 0.087 H C-Reactive Protein Total Protein Albumin Triglycerides 202 H LDL Cholesterol Direct 6 L HDL Cholesterol 10 L Urine WBC (Auto) Urine Creatinine 12/21/17 12/21/17 12/21/17 17:47 19:32 20:56 WBC MCV MCH RDW Plt Count Seg Neuts % (Manual) Lymphocytes % (Manual) Seg Neutrophils # Man Lymphocytes # (Manual) PT INR POC ABG pH POC ABG pCO2 POC ABG pO2 Sodium Potassium Chloride 107.2 H Carbon Dioxide 14 L BUN 32 H Creatinine 2.4 H Glucose 171 H POC Glucose 160 H 136 H Lactic Acid Calcium 6.6 L Phosphorus Magnesium Total Bilirubin AST ALT Alkaline Phosphatase Troponin T C-Reactive Protein Total Protein Albumin Triglycerides LDL Cholesterol Direct HDL Cholesterol Urine WBC (Auto) Urine Creatinine 12/21/17 12/22/17 12/22/17 21:12 00:29 03:08 WBC MCV MCH RDW Plt Count Seg Neuts % (Manual) Lymphocytes % (Manual) Seg Neutrophils # Man Lymphocytes # (Manual) PT INR POC ABG pH 7.152 L 7.241 L POC ABG pCO2 28.1 L POC ABG pO2 62 L 113 H Sodium Potassium Chloride Carbon Dioxide BUN Creatinine Glucose POC Glucose 109 H Lactic Acid Calcium Phosphorus Magnesium Total Bilirubin AST ALT Alkaline Phosphatase Troponin T C-Reactive Protein Total Protein Albumin Triglycerides LDL Cholesterol Direct HDL Cholesterol Urine WBC (Auto) Urine Creatinine 12/22/17 12/22/17 12/22/17 04:29 04:30 04:30 WBC 21.9 H MCV 77 L MCH 25 L RDW 16.6 H Plt Count 57 L Seg Neuts % (Manual) Lymphocytes % (Manual) Seg Neutrophils # Man Lymphocytes # (Manual) PT INR POC ABG pH POC ABG pCO2 POC ABG pO2 Sodium Potassium Chloride Carbon Dioxide 14 L BUN 37 H Creatinine 2.7 H Glucose 145 H POC Glucose 139 H Lactic Acid Calcium 6.4 L Phosphorus Magnesium Total Bilirubin AST ALT Alkaline Phosphatase Troponin T C-Reactive Protein Total Protein Albumin Triglycerides LDL Cholesterol Direct HDL Cholesterol Urine WBC (Auto) Urine Creatinine 12/22/17 12/22/17 12/22/17 04:30 05:24 05:54 WBC MCV MCH RDW Plt Count Seg Neuts % (Manual) Lymphocytes % (Manual) Seg Neutrophils # Man Lymphocytes # (Manual) PT INR POC ABG pH POC ABG pCO2 POC ABG pO2 Sodium Potassium Chloride Carbon Dioxide BUN Creatinine Glucose POC Glucose 144 H 145 H Lactic Acid 3.30 H* Calcium Phosphorus Magnesium Total Bilirubin AST ALT Alkaline Phosphatase Troponin T C-Reactive Protein Total Protein Albumin Triglycerides LDL Cholesterol Direct HDL Cholesterol Urine WBC (Auto) Urine Creatinine 12/22/17 12/22/17 12/22/17 07:56 07:56 10:09 WBC MCV MCH RDW Plt Count Seg Neuts % (Manual) Lymphocytes % (Manual) Seg Neutrophils # Man Lymphocytes # (Manual) PT INR POC ABG pH 7.180 L POC ABG pCO2 POC ABG pO2 117 H Sodium Potassium Chloride Carbon Dioxide 14 L BUN 39 H Creatinine 2.9 H Glucose 174 H POC Glucose Lactic Acid 3.00 H* Calcium 6.7 L Phosphorus Magnesium Total Bilirubin AST ALT Alkaline Phosphatase Troponin T C-Reactive Protein Total Protein Albumin Triglycerides LDL Cholesterol Direct HDL Cholesterol Urine WBC (Auto) Urine Creatinine 12/22/17 12/22/17 12/22/17 10:12 12:19 14:23 WBC MCV MCH RDW Plt Count Seg Neuts % (Manual) Lymphocytes % (Manual) Seg Neutrophils # Man Lymphocytes # (Manual) PT INR POC ABG pH 7.241 L 7.285 L POC ABG pCO2 33.9 L 29.9 L POC ABG pO2 45 L 117 H Sodium Potassium Chloride Carbon Dioxide BUN Creatinine Glucose POC Glucose 185 H Lactic Acid Calcium Phosphorus Magnesium Total Bilirubin AST ALT Alkaline Phosphatase Troponin T C-Reactive Protein Total Protein Albumin Triglycerides LDL Cholesterol Direct HDL Cholesterol Urine WBC (Auto) Urine Creatinine 12/22/17 12/22/17 12/22/17 14:27 17:22 19:58 WBC MCV MCH RDW Plt Count Seg Neuts % (Manual) Lymphocytes % (Manual) Seg Neutrophils # Man Lymphocytes # (Manual) PT INR POC ABG pH 7.338 L POC ABG pCO2 27.6 L POC ABG pO2 167 H Sodium Potassium Chloride Carbon Dioxide BUN Creatinine Glucose POC Glucose 220 H 197 H Lactic Acid Calcium Phosphorus Magnesium Total Bilirubin AST ALT Alkaline Phosphatase Troponin T C-Reactive Protein Total Protein Albumin Triglycerides LDL Cholesterol Direct HDL Cholesterol Urine WBC (Auto) Urine Creatinine 12/22/17 12/23/17 12/23/17 21:18 05:30 05:30 WBC 14.5 H MCV 75 L MCH 26 L RDW 16.7 H Plt Count 26 L Seg Neuts % (Manual) Lymphocytes % (Manual) Seg Neutrophils # Man Lymphocytes # (Manual) PT INR POC ABG pH POC ABG pCO2 POC ABG pO2 Sodium Potassium Chloride Carbon Dioxide 15 L BUN 49 H Creatinine 3.5 H Glucose 123 H POC Glucose 189 H Lactic Acid Calcium 6.7 L Phosphorus Magnesium Total Bilirubin 3.60 H AST 93 H ALT 58 H Alkaline Phosphatase Troponin T C-Reactive Protein Total Protein 4.5 L Albumin 2.0 L Triglycerides LDL Cholesterol Direct HDL Cholesterol Urine WBC (Auto) Urine Creatinine 12/23/17 12/23/17 12/23/17 05:30 12:31 15:13 WBC MCV MCH RDW Plt Count Seg Neuts % (Manual) Lymphocytes % (Manual) Seg Neutrophils # Man Lymphocytes # (Manual) PT INR POC ABG pH POC ABG pCO2 POC ABG pO2 Sodium Potassium Chloride Carbon Dioxide BUN Creatinine Glucose POC Glucose 141 H Lactic Acid Calcium Phosphorus Magnesium Total Bilirubin AST ALT Alkaline Phosphatase Troponin T C-Reactive Protein 38.70 H Total Protein Albumin Triglycerides LDL Cholesterol Direct HDL Cholesterol Urine WBC (Auto) Urine Creatinine 65.1 H 12/23/17 12/24/17 12/24/17 18:53 00:13 05:15 WBC 14.7 H MCV 76 L MCH 25 L RDW 16.6 H Plt Count 20 L Seg Neuts % (Manual) Lymphocytes % (Manual) Seg Neutrophils # Man Lymphocytes # (Manual) PT INR POC ABG pH POC ABG pCO2 POC ABG pO2 Sodium Potassium Chloride Carbon Dioxide BUN Creatinine Glucose POC Glucose 205 H 207 H Lactic Acid Calcium Phosphorus Magnesium Total Bilirubin AST ALT Alkaline Phosphatase Troponin T C-Reactive Protein Total Protein Albumin Triglycerides LDL Cholesterol Direct HDL Cholesterol Urine WBC (Auto) Urine Creatinine 12/24/17 12/24/17 05:15 05:51 WBC MCV MCH RDW Plt Count Seg Neuts % (Manual) Lymphocytes % (Manual) Seg Neutrophils # Man Lymphocytes # (Manual) PT INR POC ABG pH POC ABG pCO2 POC ABG pO2 Sodium Potassium Chloride 107.2 H Carbon Dioxide 19 L BUN 67 H Creatinine 4.0 H Glucose 150 H POC Glucose 176 H Lactic Acid Calcium 7.2 L Phosphorus Magnesium Total Bilirubin 5.60 H AST 47 H ALT Alkaline Phosphatase Troponin T C-Reactive Protein Total Protein 4.3 L Albumin 1.9 L Triglycerides LDL Cholesterol Direct HDL Cholesterol Urine WBC (Auto) Urine Creatinine
[2017-12-24] MEDS: Centrum Liq PO SCH (09:21)
[2017-12-24] MEDS: MAXIPIME 2 GM in NACL 0.9% 20 ML IV SCH (09:21)
[2017-12-24] MEDS: VITAMIN B-1 PO SCH (09:21)
[2017-12-24] MEDS: PEPCID IV SCH ×2 (09:21→21:16)
[2017-12-24] MEDS: HumuLIN R SUB-Q SCH ×4 (09:22→21:28)
[2017-12-24] MEDS: SODIUM CHLORIDE FLUSH SYRINGE 10 ML IV SCH ×2 (11:53→21:17)
[2017-12-24] MEDS: FOLVITE PO SCH (11:59)
--- NOTE | 2017-12-24 15:08 | Consultation ---
History of Present Illness Consult date: 12/24/17 Reason for consult: abdominal pain Requesting physician: JOSE A LUNDY Chief complaint: abdominal pain, N/V/D - History of present illness History of present illness: 52-year-old female currently in the ICU with multiple medical problems is currently being worked up for sepsis. Team is concerned about possible acalculus cholecystitis. General surgery was consulted. Patient is able to give limited information. Case was discussed with the hospitalist and chart was reviewed. When asked in Macedonian, patient indicates that she has no pain. Past History Past Medical History: diabetes, hypertension Social history: . denies: smoking, IV drug use Family history: no significant family history Medications and Allergies Allergies Allergy/AdvReac Type Severity Reaction Status Date / Time No Known Allergies Allergy Unverified 12/20/17 23:19 Home Medications Medication Instructions Recorded Confirmed Last Taken Type Losartan/Hydrochlorothiazide 1 each PO DAILY 12/21/17 12/21/17 Unknown History [Losartan-Hctz 50-12.5 mg Tab] glipiZIDE [Glipizide] 5 mg PO BID 12/21/17 12/21/17 Unknown History metFORMIN [Glucophage] 500 mg PO BID 12/21/17 12/21/17 Unknown History Active Meds: Active Medications Acetaminophen (Tylenol) 650 mg PO Q4H PRN PRN Reason: Pain MILD(1-3)/Fever >100.5/CHAVEZ Acetaminophen (Tylenol) 650 mg AK Q4H PRN PRN Reason: Pain MILD(1-3)/Fever >100.5/CHAVEZ Lipase/Protease/Amylase (Pancreaze Dr 10,500 Unit) 1 each FEEDTUBE PRN PRN PRN Reason: For Clogged Feeding Tube Dextrose (D50w (25gm) Syringe) 0 ml IV ONCE PRN PRN Reason: Hypoglycemia Famotidine (Pepcid) 10 mg IV BID [facility] Last Admin: 12/24/17 09:21 Dose: 10 mg Folic Acid (Folvite) 1 mg PO QDAY [facility] Last Admin: 12/24/17 11:59 Dose: 1 mg Norepinephrine (Levophed Drip 4 Mg/Ns 250 Ml) 4 mg in 250 mls @ 7.5 mls/hr IV TITR LO; Protocol Last Titration: 12/23/17 22:00 Dose: 0 mcg/min, 0 mls/hr Insulin Human Regular 100 (units/ Sodium Chloride) 100 mls @ 1 mls/hr IV TITR LO; Protocol Last Titration: 12/21/17 23:30 Dose: 0 units/hr, 0 mls/hr Sodium Chloride (Nacl 0.9% 1000 Ml) 1,000 mls @ 150 mls/hr IV DIRECT LO Last Infusion: 12/21/17 11:00 Dose: Infused Cefepime HCl 2 gm/ Sodium (Chloride) 20 mls @ 20 mls/10 min IV Q24HR LO; Protocol Last Admin: 12/24/17 09:21 Dose: 20 mls/10 min Sodium Bicarbonate 150 meq/ (Dextrose) 1,150 mls @ 100 mls/hr IV DIRECT LO Last Admin: 12/24/17 05:10 Dose: 100 mls/hr Insulin Human Regular (Humulin R) 0 units SUB-Q ACHS LO; Protocol Last Admin: 12/24/17 12:07 Dose: 4 units Morphine Sulfate (Morphine) 2 mg IV Q4H PRN PRN Reason: Pain, Moderate (4-6) Last Admin: 12/23/17 10:08 Dose: 2 mg Multivitamins (Centrum Liq) 5 ml PO QDAY [facility] Last Admin: 12/24/17 09:21 Dose: 5 ml Ondansetron HCl (Zofran) 4 mg IV Q4H PRN PRN Reason: Nausea And Vomiting Last Admin: 12/22/17 01:40 Dose: 4 mg Simple Syrup (Simple Syrup) 15 ml FEEDTUBE PRN PRN PRN Reason: Hypoglycemia Simple Syrup (Simple Syrup) 30 ml FEEDTUBE PRN PRN PRN Reason: Hypoglycemia Sodium Bicarbonate (Sodium Bicarbonate) 325 mg FEEDTUBE PRN PRN PRN Reason: For Clogged Feeding Tube Sodium Chloride (Sodium Chloride Flush Syringe 10 Ml) 10 ml IV BID [facility] Last Admin: 12/24/17 11:53 Dose: 10 ml Sodium Chloride (Sodium Chloride Flush Syringe 10 Ml) 10 ml IV PRN PRN PRN Reason: LINE FLUSH Thiamine HCl (Vitamin B-1) 100 mg PO QDAY [facility] Last Admin: 12/24/17 09:21 Dose: 100 mg Review of Systems ROS unobtainable: due to mental status Exam Vital Signs Temp Pulse Resp BP Pulse Ox 99.8 F H 105 H 18 59/38 97 12/20/17 23:22 12/20/17 23:22 12/20/17 23:22 12/20/17 23:22 12/20/17 23:22 - General physical appearance Positive: no distress - Respiratory Positive: normal expansion, normal respiratory effort - Cardiovascular Rhythm: regular - Abdomen Abdomen: Present: soft, bowel sounds hypoactive, other (protuberant). Absent: tender, guarding, rigid, surgical scars - Integumentary no rash, no growths, no abnormal pigmentation, other (Pt is edematous) Results - Labs 12/24/17 05:15 12/24/17 05:15 Abnormal lab results 12/23/17 12/23/17 12/23/17 Range/Units 12:31 15:13 18:53 WBC (4.5-11.0) K/mm3 MCV (79-97) fl MCH (28-32) pg RDW (13.2-15.2) % Plt Count (140-440) K/mm3 Chloride (98-107) mmol/L Carbon Dioxide (22-30) mmol/L BUN (7-17) mg/dL Creatinine (0.7-1.2) mg/dL Glucose (65-100) mg/dL POC Glucose 141 H 205 H (70-105) Calcium (8.4-10.2) mg/dL Total Bilirubin (0.1-1.2) mg/dL AST (5-40) units/L Total Protein (6.3-8.2) g/dL Albumin (3.9-5) g/dL Urine Creatinine 65.1 H (0.1-20.0) mg/dL 12/24/17 12/24/17 12/24/17 Range/Units 00:13 05:15 05:15 WBC 14.7 H (4.5-11.0) K/mm3 MCV 76 L (79-97) fl MCH 25 L (28-32) pg RDW 16.6 H (13.2-15.2) % Plt Count 20 L (140-440) K/mm3 Chloride 107.2 H (98-107) mmol/L Carbon Dioxide 19 L (22-30) mmol/L BUN 67 H (7-17) mg/dL Creatinine 4.0 H (0.7-1.2) mg/dL Glucose 150 H (65-100) mg/dL POC Glucose 207 H (70-105) Calcium 7.2 L (8.4-10.2) mg/dL Total Bilirubin 5.60 H (0.1-1.2) mg/dL AST 47 H (5-40) units/L Total Protein 4.3 L (6.3-8.2) g/dL Albumin 1.9 L (3.9-5) g/dL Urine Creatinine (0.1-20.0) mg/dL 12/24/17 12/24/17 Range/Units 05:51 11:53 WBC (4.5-11.0) K/mm3 MCV (79-97) fl MCH (28-32) pg RDW (13.2-15.2) % Plt Count (140-440) K/mm3 Chloride (98-107) mmol/L Carbon Dioxide (22-30) mmol/L BUN (7-17) mg/dL Creatinine (0.7-1.2) mg/dL Glucose (65-100) mg/dL POC Glucose 176 H 274 H (70-105) Calcium (8.4-10.2) mg/dL Total Bilirubin (0.1-1.2) mg/dL AST (5-40) units/L Total Protein (6.3-8.2) g/dL Albumin (3.9-5) g/dL Urine Creatinine (0.1-20.0) mg/dL Diabetes panel 12/24/17 Range/Units 05:15 Sodium 145 (137-145) mmol/L Potassium 4.3 (3.6-5.0) mmol/L Chloride 107.2 H (98-107) mmol/L Carbon Dioxide 19 L (22-30) mmol/L BUN 67 H (7-17) mg/dL Creatinine 4.0 H (0.7-1.2) mg/dL Glucose 150 H (65-100) mg/dL Calcium 7.2 L (8.4-10.2) mg/dL AST 47 H (5-40) units/L ALT 44 (7-56) units/L Alkaline Phosphatase 118 (35-129) units/L Total Protein 4.3 L (6.3-8.2) g/dL Albumin 1.9 L (3.9-5) g/dL Calcium panel 12/24/17 Range/Units 05:15 Calcium 7.2 L (8.4-10.2) mg/dL Phosphorus 3.60 (2.5-4.5) mg/dL Albumin 1.9 L (3.9-5) g/dL Pituitary panel 12/24/17 Range/Units 05:15 Sodium 145 (137-145) mmol/L Potassium 4.3 (3.6-5.0) mmol/L Chloride 107.2 H (98-107) mmol/L Carbon Dioxide 19 L (22-30) mmol/L BUN 67 H (7-17) mg/dL Creatinine 4.0 H (0.7-1.2) mg/dL Glucose 150 H (65-100) mg/dL Calcium 7.2 L (8.4-10.2) mg/dL Adrenal panel 12/24/17 Range/Units 05:15 Sodium 145 (137-145) mmol/L Potassium 4.3 (3.6-5.0) mmol/L Chloride 107.2 H (98-107) mmol/L Carbon Dioxide 19 L (22-30) mmol/L BUN 67 H (7-17) mg/dL Creatinine 4.0 H (0.7-1.2) mg/dL Glucose 150 H (65-100) mg/dL Calcium 7.2 L (8.4-10.2) mg/dL Total Bilirubin 5.60 H (0.1-1.2) mg/dL AST 47 H (5-40) units/L ALT 44 (7-56) units/L Alkaline Phosphatase 118 (35-129) units/L Total Protein 4.3 L (6.3-8.2) g/dL Albumin 1.9 L (3.9-5) g/dL - Imaging Abdominal x-ray: report reviewed US - abdomen: report reviewed Assessment and Plan - Patient Problems (1) Hyperbilirubinemia Current Visit: Yes Status: Acute Plan to address problem: Overall, this does not appear to be acalculus cholecystitis. The LFTs are not consistent with cholecystitis. Primarily, the bilirubin is elevated which may be due to hepatic insufficiency. Patient does not appear to be tender in that area when palpated. Patient states that she has no pain when asked in Macedonian. The ultrasound appearance may be due to tissue swelling and ascites as she is 10 kg positive since admission. This is most likely fluid retention. If there is no other source for sepsis, and it is possible to take her to radiology, I would recommend a HIDA scan. If that is positive, then have IR place a cholecystostomy drain. If HIDA is not possible and the only suspected source is the gallbladder, then I would ask IR to empirically place the drain. Please call with any questions. I will follow along in her care. Thank you. Time=45min
[2017-12-24] MEDS: MORPHINE IV PRN (21:17)
--- NOTE | 2017-12-24 22:50 | Progress Note ---
Assessment and Plan Assessment and plan: 52-year-old woman with a history of hypertension, diabetes comes to emergency room with complaints of fever, nausea vomiting and diarrhea that started yesterday. She's had 4 episodes of diarrhea today, stool is less watery. She also complained of abdominal pain on the left lower quadrant and lower back pain which she describes as sharp pain, intermittent in nature and lasted for a few seconds, intensity 6/10, no radiation, she cannot identify exacerbating or relieving factor. Sons at bedside are translators. The patient took that one dose of antibiotic this morning, she does not know the name of the antibiotic. 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 scabies Acute encephalopathy Gastroenteritis, viral Thrombocytopenia Plan Continue ICU care Antibiotics changed from IV Zosyn, vancomycin, to merrem, surgery consult MONITOR LIVER ENZYMES US OF THE LIVER Nephrology consult IF NO improvement, may need to biopsy lymphnodes per IR not optimal candidate for nephrostomy tube due to minimally distented collecting system and thrombocytopenia. Initiated DKA protocol with IV fluids, insulin drip Transition to long acting once gap closed permethrin cream fro presumed scabies Per ID Contact Isolation Monitor serial fingerstick, electrolyte Check stool studies SON advised of findings DVT prophylaxis GUARDED PROGNOSIS The high probability of a clinically significant, sudden or life threatening deterioration of the [pulmonary, Renal, infectious] system(s) required my full and direct attention, intervention and personal management. The aggregate critical care time was [35] minutes. This time is in addition to time spent performing reported procedures but includes the following: [X] Data Review and interpretation [X] Patient assessment and monitoring of vital signs [X] Documentation [X] Medication orders and management History Interval history: Patient seen and examined, Improved, respiratory status but poor urine output. Still restless, mental status improving. Hospitalist Physical - Physical exam Narrative exam: VITAL SIGNS: Reviewed. GENERAL: The patient appeared well nourished and normally developed although was lethargic. Vital signs as documented. HEAD: No signs of head trauma. EYES: Pupils are equal. Extraocular motions intact. EARS: Hearing grossly intact. MOUTH: Oropharynx is normal. NECK: No adenopathy, no JVD. CHEST: Chest with diminished breath sounds bilaterally. No wheezes, rales, or rhonchi. CARDIAC: Regular rate and rhythm. S1 and S2, without murmurs, gallops, or rubs. VASCULAR: No Edema. Peripheral pulses normal and equal in all extremities. ABDOMEN: Soft, without detectable tenderness. No sign of distention. No rebound or guarding, and no masses palpated. Bowel Sounds normal. MUSCULOSKELETAL: Good range of motion of all major joints. Extremities without clubbing, cyanosis or edema. NEUROLOGIC EXAM: Lethargic but arousable. No focal sensory or strength deficits. Speech normal. Follows commands. PSYCHIATRIC: Mood normal. SKIN: Multiple punctate lesions covering the whole body. - Constitutional Vitals: Temp Pulse Resp BP Pulse Ox 98 F 71 16 107/57 97 12/24/17 20:00 12/24/17 22:01 12/24/17 22:01 12/24/17 22:01 12/24/17 22:01 Results - Labs CBC & Chem 7: 12/24/17 05:15 12/24/17 05:15 Labs: Laboratory Last Values WBC 14.7 K/mm3 (4.5-11.0) H 12/24/17 05:15 RBC 4.05 M/mm3 (3.65-5.03) 12/24/17 05:15 Hgb 10.2 gm/dl (10.1-14.3) 12/24/17 05:15 Hct 30.9 % (30.3-42.9) 12/24/17 05:15 MCV 76 fl (79-97) L 12/24/17 05:15 MCH 25 pg (28-32) L 12/24/17 05:15 MCHC 33 % (30-34) 12/24/17 05:15 RDW 16.6 % (13.2-15.2) H 12/24/17 05:15 Plt Count 20 K/mm3 (140-440) L 12/24/17 05:15 Add Manual Diff Complete 12/20/17 23:35 Total Counted 100 12/20/17 23:35 Seg Neuts % (Manual) 76.0 % (40.0-70.0) H 12/20/17 23:35 Band Neutrophils % 13.0 % 12/20/17 23:35 Lymphocytes % (Manual) 6.0 % (13.4-35.0) L 12/20/17 23:35 Reactive Lymphs % (Man) 0 % 12/20/17 23:35 Monocytes % (Manual) 1.0 % (0.0-7.3) 12/20/17 23:35 Eosinophils % (Manual) 0 % (0.0-4.3) 12/20/17 23:35 Basophils % (Manual) 0 % (0.0-1.8) 12/20/17 23:35 Metamyelocytes % 1.0 % 12/20/17 23:35 Myelocytes % 3.0 % 12/20/17 23:35 Promyelocytes % 0 % 12/20/17 23:35 Blast Cells % 0 % 12/20/17 23:35 Nucleated RBC % Not Reportable 12/20/17 23:35 Seg Neutrophils # Man 8.2 K/mm3 (1.8-7.7) H 12/20/17 23:35 Band Neutrophils # 1.4 K/mm3 12/20/17 23:35 Lymphocytes # (Manual) 0.6 K/mm3 (1.2-5.4) L 12/20/17 23:35 Abs React Lymphs (Man) 0.0 K/mm3 12/20/17 23:35 Monocytes # (Manual) 0.1 K/mm3 (0.0-0.8) 12/20/17 23:35 Eosinophils # (Manual) 0.0 K/mm3 (0.0-0.4) 12/20/17 23:35 Basophils # (Manual) 0.0 K/mm3 (0.0-0.1) 12/20/17 23:35 Metamyelocytes # 0.1 K/mm3 12/20/17 23:35 Myelocytes # 0.3 K/mm3 12/20/17 23:35 Promyelocytes # 0.0 K/mm3 12/20/17 23:35 Blast Cells # 0.0 K/mm3 12/20/17 23:35 WBC Morphology Not Reportable 12/20/17 23:35 Hypersegmented Neuts Not Reportable 12/20/17 23:35 Hyposegmented Neuts Not Reportable 12/20/17 23:35 Hypogranular Neuts Not Reportable 12/20/17 23:35 Smudge Cells Not Reportable 12/20/17 23:35 Toxic Granulation Not Reportable 12/20/17 23:35 Toxic Vacuolation Not Reportable 12/20/17 23:35 Dohle Bodies Not Reportable 12/20/17 23:35 Pelger-Huet Anomaly Not Reportable 12/20/17 23:35 Pooja Rods Not Reportable 12/20/17 23:35 Platelet Estimate Appears decreased 12/20/17 23:35 Clumped Platelets Not Reportable 12/20/17 23:35 Plt Clumps, EDTA Not Reportable 12/20/17 23:35 Large Platelets Not Reportable 12/20/17 23:35 Giant Platelets Not Reportable 12/20/17 23:35 Platelet Satelliting Not Reportable 12/20/17 23:35 Plt Morphology Comment Not Reportable 12/20/17 23:35 RBC Morphology Not Reportable 12/20/17 23:35 Dimorphic RBCs Not Reportable 12/20/17 23:35 Polychromasia Not Reportable 12/20/17 23:35 Hypochromasia 1+ 12/20/17 23:35 Poikilocytosis Not Reportable 12/20/17 23:35 Anisocytosis Not Reportable 12/20/17 23:35 Microcytosis Not Reportable 12/20/17 23:35 Macrocytosis Not Reportable 12/20/17 23:35 Spherocytes Not Reportable 12/20/17 23:35 Pappenheimer Bodies Not Reportable 12/20/17 23:35 Sickle Cells Not Reportable 12/20/17 23:35 Target Cells Not Reportable 12/20/17 23:35 Tear Drop Cells Not Reportable 12/20/17 23:35 Ovalocytes Not Reportable 12/20/17 23:35 Helmet Cells Not Reportable 12/20/17 23:35 [place] Bodies Not Reportable 12/20/17 23:35 Combs Rings Not Reportable 12/20/17 23:35 [place] Cells Not Reportable 12/20/17 23:35 Bite Cells Not Reportable 12/20/17 23:35 Crenated Cell Not Reportable 12/20/17 23:35 Elliptocytes Not Reportable 12/20/17 23:35 Acanthocytes (Spur) Not Reportable 12/20/17 23:35 Rouleaux Not Reportable 12/20/17 23:35 Hemoglobin C Crystals Not Reportable 12/20/17 23:35 Schistocytes Not Reportable 12/20/17 23:35 Malaria parasites Not Reportable 12/20/17 23:35 López Bodies Not Reportable 12/20/17 23:35 Hem Pathologist Commnt No 12/20/17 23:35 PT 18.5 Sec. (12.2-14.9) H 12/20/17 23:35 INR 1.45 (0.87-1.13) H 12/20/17 23:35 POC ABG pH 7.338 (7.35-7.45) L 12/22/17 19:58 POC ABG pCO2 27.6 (35-45) L 12/22/17 19:58 POC ABG pO2 167 (80-105) H 12/22/17 19:58 POC ABG HCO3 14.8 12/22/17 19:58 POC ABG Total CO2 16 12/22/17 19:58 POC ABG O2 Sat 99 12/22/17 19:58 POC ABG Base Excess -11 12/22/17 19:58 VBG pH 7.320 (7.320-7.420) 12/20/17 23:35 FiO2 40 % 12/22/17 19:58 Sodium 145 mmol/L (137-145) 12/24/17 05:15 Potassium 4.3 mmol/L (3.6-5.0) 12/24/17 05:15 Chloride 107.2 mmol/L (98-107) H 12/24/17 05:15 Carbon Dioxide 19 mmol/L (22-30) L 12/24/17 05:15 Anion Gap 23 mmol/L 12/24/17 05:15 BUN 67 mg/dL (7-17) H 12/24/17 05:15 Creatinine 4.0 mg/dL (0.7-1.2) H 12/24/17 05:15 Estimated GFR 12 ml/min 12/24/17 05:15 BUN/Creatinine Ratio 17 % 12/24/17 05:15 Glucose 150 mg/dL (65-100) H 12/24/17 05:15 POC Glucose 274 (70-105) H 12/24/17 11:53 Lactic Acid 2.00 mmol/L (0.7-2.0) 12/23/17 15:21 Calcium 7.2 mg/dL (8.4-10.2) L 12/24/17 05:15 Phosphorus 3.60 mg/dL (2.5-4.5) 12/24/17 05:15 Magnesium 2.00 mg/dL (1.7-2.3) 12/24/17 05:15 Total Bilirubin 5.60 mg/dL (0.1-1.2) H 12/24/17 05:15 AST 47 units/L (5-40) H 12/24/17 05:15 ALT 44 units/L (7-56) 12/24/17 05:15 Alkaline Phosphatase 118 units/L (35-129) 12/24/17 05:15 Total Creatine Kinase 117 units/L (30-135) 12/21/17 13:27 CK-MB (CK-2) 3.9 ng/mL (0.0-4.0) 12/21/17 13:27 CK-MB (CK-2) Rel Index 3.3 (0-4) 12/21/17 13:27 Troponin T 0.087 ng/mL (0.00-0.029) H 12/21/17 13:27 C-Reactive Protein 38.70 mg/dL (0.00-1.30) H 12/23/17 05:30 Total Protein 4.3 g/dL (6.3-8.2) L 12/24/17 05:15 Albumin 1.9 g/dL (3.9-5) L 12/24/17 05:15 Albumin/Globulin Ratio 0.8 % 12/24/17 05:15 Triglycerides 202 mg/dL (2-149) H 12/21/17 13:27 Cholesterol 57 mg/dL (50-199) 12/21/17 13:27 LDL Cholesterol Direct 6 mg/dL (50-130) L 12/21/17 13:27 HDL Cholesterol 10 mg/dL (40-59) L 12/21/17 13:27 Cholesterol/HDL Ratio 5.70 % 12/21/17 13:27 Urine Color Yellow (Yellow) 12/21/17 01:50 Urine Turbidity Clear (Clear) 12/21/17 01:50 Urine pH 5.0 (5.0-7.0) 12/21/17 01:50 Ur Specific [place] 1.015 (1.003-1.030) 12/21/17 01:50 Urine Protein <15 mg/dl mg/dL (Negative) 12/21/17 01:50 Urine Glucose (UA) >=500 mg/dL (Negative) 12/21/17 01:50 Urine Ketones Neg mg/dL (Negative) 12/21/17 01:50 Urine Blood Neg (Negative) 12/21/17 01:50 Urine Nitrite Neg (Negative) 12/21/17 01:50 Urine Bilirubin Neg (Negative) 12/21/17 01:50 Urine Urobilinogen < 2.0 mg/dL (<2.0) 12/21/17 01:50 Ur Leukocyte Esterase Sm (Negative) 12/21/17 01:50 Urine WBC (Auto) 38.0 /HPF (0.0-6.0) H 12/21/17 01:50 Urine RBC (Auto) 3.0 /HPF (0.0-6.0) 12/21/17 01:50 U Epithel Cells (Auto) 3.0 /HPF (0-13.0) 12/21/17 01:50 Urine Bacteria (Auto) 2+ /HPF (Negative) 12/21/17 01:50 Urine Creatinine 65.1 mg/dL (0.1-20.0) H 12/23/17 15:13 Urine Sodium 26 mmol/L 12/23/17 15:13 Random Vancomycin 15.4 ug/mL (0-40.0) 12/22/17 Unknown C. difficile Toxin A&B Negative (Negative) 12/21/17 04:52 Hepatitis A IgM Ab Non-reactive (NonReactive) 12/21/17 08:44 Hep Bs Antigen Non-reactive (Negative) 12/21/17 08:44 Hep B Core IgM Ab Non-reactive (NonReactive) 12/21/17 08:44 Hepatitis C Antibody Non-reactive (NonReactive) 12/21/17 08:44
[2017-12-25] MEDS: SODIUM BICARBONATE 150 MEQ in D5W 1,000 ML IV SCH ×2 (04:11→17:42)
[2017-12-25 06:13] LABS: Hematocrit 30.2 % (30.3-42.9); Hemoglobin 10.1 gm/dl (10.1-14.3); Mean Corpuscular HGB Conc 34 % (30-34); Mean Corpuscular Volume 75 fl (79-97); Red Blood Count 4.04 M/mm3 (3.65-5.03); Red Cell Distribution Width 17.2 % (13.2-15.2)
[2017-12-25 06:27] LABS: Mean Corpuscular Hemoglobin 25 pg (28-32); Platelet Count 24 K/mm3 (140-440)
[2017-12-25 06:34] LABS: Albumin 1.6 g/dL (3.9-5); Calcium 7.5 mg/dL (8.4-10.2)
[2017-12-25 08:36] LABS: Anisocytosis 1+; Band Neutrophils # (Manual) 0.8 K/mm3; Basophils % (Manual) 0 % (0.0-1.8); Eosinophils % (Manual) 0 % (0.0-4.3); Hypochromasia 1+; Platelet Estimate Consistent w Auto; Total Cells Counted 100
[2017-12-25] MEDS: HumuLIN R SUB-Q SCH ×4 (08:48→22:40)
--- NOTE | 2017-12-25 09:01 | Progress Note ---
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 MARLENE Left Hydronephrosis Fatty Liver Abnormal LFTs, mixed picture Skin rash Acute encephalopathy Gastroenteritis, viral Thrombocytopenia -NIPPV for work of breathing and for adjustment of minute ventilation for better acid-base -vasopressor support if needed to , keep MAP>65 -Add gram negative edilia coverage to therapy -VTE prophylaxis -Supplemental oxygen to keep O2 sats>90% -Agitation management -Accucheck with glycemic control - Discussed in detail with the at the bedside The high probability of a clinically significant, sudden or life threatening deterioration of the [pulmonary, Renal, infectious, cardiovascular ] system(s) required my full and direct attention, intervention and personal management. The aggregate critical care time was [35] minutes. This time is in addition to time spent performing reported procedures but includes the following: [X] Data Review and interpretation [X] Patient assessment and monitoring of vital signs [X] Documentation [X] Medication orders and management Subjective Date of service: 12/25/17 Principal diagnosis: septic shock, E.coli bacteremai Objective - Exam Narrative Exam: VITAL SIGNS: Reviewed. GENERAL: The patient appeared well nourished and normally developed although was lethargic. Vital signs as documented. HEAD: No signs of head trauma. EYES: Pupils are equal. Extraocular motions intact. EARS: Hearing grossly intact. MOUTH: Oropharynx is normal. NECK: No adenopathy, no JVD. CHEST: Chest with diminished breath sounds bilaterally. No wheezes, rales, or rhonchi. CARDIAC: Regular rate and rhythm. S1 and S2, without murmurs, gallops, or rubs. VASCULAR: No Edema. Peripheral pulses normal and equal in all extremities. ABDOMEN: Soft, without detectable tenderness. No sign of distention. No rebound or guarding, and no masses palpated. Bowel Sounds normal. MUSCULOSKELETAL: Good range of motion of all major joints. Extremities without clubbing, cyanosis or edema. NEUROLOGIC EXAM: Lethargic but arousable. No focal sensory or strength deficits. Speech normal. Follows commands. PSYCHIATRIC: Mood normal. SKIN: Multiple punctate lesions covering the whole body. Vital Signs - 12hr 12/24/17 12/24/17 12/24/17 21:08 21:15 21:30 Temperature Pulse Rate 94 H 93 H Pulse Rate [ From Monitor] Respiratory 18 17 Rate Blood Pressure 129/77 129/77 O2 Sat by Pulse 99 99 99 Oximetry 12/24/17 12/24/17 12/24/17 21:45 22:00 22:01 Temperature Pulse Rate 95 H 71 71 Pulse Rate [ From Monitor] Respiratory 15 16 Rate Blood Pressure 129/77 107/57 O2 Sat by Pulse 99 100 97 Oximetry 12/24/17 12/24/17 12/24/17 22:15 22:31 22:45 Temperature Pulse Rate 93 H 90 93 H Pulse Rate [ From Monitor] Respiratory 16 16 18 Rate Blood Pressure 107/57 107/57 107/57 O2 Sat by Pulse 99 99 99 Oximetry 12/24/17 12/24/17 12/24/17 23:00 23:03 23:15 Temperature Pulse Rate 92 H 87 88 Pulse Rate [ From Monitor] Respiratory 16 20 19 Rate Blood Pressure 132/75 107/57 132/75 O2 Sat by Pulse 98 100 99 Oximetry 12/24/17 12/24/17 12/25/17 23:31 23:45 00:00 Temperature 98.1 F Pulse Rate 87 90 93 H Pulse Rate [ 87 From Monitor] Respiratory 16 23 21 Rate Blood Pressure 132/75 132/75 128/78 O2 Sat by Pulse 100 99 99 Oximetry 12/25/17 12/25/17 12/25/17 00:01 00:15 00:31 Temperature Pulse Rate 88 88 92 H Pulse Rate [ From Monitor] Respiratory 13 20 19 Rate Blood Pressure 128/78 128/78 128/78 O2 Sat by Pulse 99 99 99 Oximetry 12/25/17 12/25/17 12/25/17 00:45 01:00 01:15 Temperature Pulse Rate 91 H 90 96 H Pulse Rate [ From Monitor] Respiratory 19 17 20 Rate Blood Pressure 128/78 125/72 125/72 O2 Sat by Pulse 100 98 99 Oximetry 12/25/17 12/25/17 12/25/17 01:31 01:45 02:00 Temperature Pulse Rate 95 H 93 H 93 H Pulse Rate [ From Monitor] Respiratory 19 18 18 Rate Blood Pressure 125/72 125/72 115/74 O2 Sat by Pulse 98 98 98 Oximetry 12/25/17 12/25/17 12/25/17 02:15 02:31 02:45 Temperature Pulse Rate 93 H 94 H 92 H Pulse Rate [ From Monitor] Respiratory 19 13 17 Rate Blood Pressure 115/74 115/74 115/74 O2 Sat by Pulse 100 98 99 Oximetry 12/25/17 12/25/17 12/25/17 03:00 03:15 03:31 Temperature Pulse Rate 89 73 89 Pulse Rate [ From Monitor] Respiratory 18 17 15 Rate Blood Pressure 116/77 116/77 116/77 O2 Sat by Pulse 98 100 100 Oximetry 12/25/17 12/25/17 12/25/17 03:45 04:00 04:15 Temperature Pulse Rate 89 88 88 Pulse Rate [ 83 From Monitor] Respiratory 15 19 21 Rate Blood Pressure 116/77 134/77 134/77 O2 Sat by Pulse 100 98 100 Oximetry 12/25/17 12/25/17 12/25/17 04:19 04:31 04:45 Temperature Pulse Rate 85 93 H 94 H Pulse Rate [ From Monitor] Respiratory 16 22 16 Rate Blood Pressure 134/77 134/77 134/77 O2 Sat by Pulse 100 99 99 Oximetry 12/25/17 12/25/17 12/25/17 05:00 05:15 05:31 Temperature Pulse Rate 91 H 93 H 94 H Pulse Rate [ From Monitor] Respiratory 19 21 16 Rate Blood Pressure 141/85 134/77 134/77 O2 Sat by Pulse 97 99 98 Oximetry 12/25/17 12/25/17 12/25/17 05:45 06:01 06:15 Temperature Pulse Rate 99 H 99 H 98 H Pulse Rate [ From Monitor] Respiratory 23 14 17 Rate Blood Pressure 141/85 143/85 141/85 O2 Sat by Pulse 96 97 Oximetry 12/25/17 12/25/17 12/25/17 06:31 06:45 07:01 Temperature Pulse Rate 101 H 98 H 98 H Pulse Rate [ From Monitor] Respiratory 22 17 19 Rate Blood Pressure 141/85 141/85 119/67 O2 Sat by Pulse 97 97 95 Oximetry 12/25/17 12/25/17 12/25/17 07:15 07:31 07:45 Temperature Pulse Rate 96 H 94 H 91 H Pulse Rate [ From Monitor] Respiratory 14 18 18 Rate Blood Pressure 119/67 119/67 119/67 O2 Sat by Pulse 98 96 98 Oximetry 12/25/17 08:00 Temperature 97.3 F L Pulse Rate 96 H Pulse Rate [ 97 H From Monitor] Respiratory 20 Rate Blood Pressure 125/74 O2 Sat by Pulse 95 Oximetry CBC and BMP: 12/25/17 05:55 12/25/17 05:55 ABG, PT/INR, D-dimer: ABG POC ABG pH 7.338 (7.35-7.45) L 12/22/17 19:58 POC ABG pCO2 27.6 (35-45) L 12/22/17 19:58 POC ABG pO2 167 (80-105) H 12/22/17 19:58 POC ABG HCO3 14.8 12/22/17 19:58 POC ABG Total CO2 16 12/22/17 19:58 POC ABG O2 Sat 99 12/22/17 19:58 PT/INR, D-dimer PT 18.5 Sec. (12.2-14.9) H 12/20/17 23:35 INR 1.45 (0.87-1.13) H 12/20/17 23:35 Abnormal lab findings: Abnormal Labs 12/20/17 12/20/17 12/20/17 23:35 23:35 23:35 WBC Hct MCV 78 L MCH 26 L RDW 15.7 H Plt Count 77 L Seg Neuts % (Manual) 76.0 H Lymphocytes % (Manual) 6.0 L Seg Neutrophils # Man 8.2 H Lymphocytes # (Manual) 0.6 L PT 18.5 H INR 1.45 H POC ABG pH POC ABG pCO2 POC ABG pO2 Sodium 130 L Potassium 3.5 L Chloride 92.3 L Carbon Dioxide 17 L BUN 27 H Creatinine 2.2 H Glucose 535 H* POC Glucose Lactic Acid Calcium 7.0 L Phosphorus Magnesium Total Bilirubin AST ALT Alkaline Phosphatase 173 H Troponin T C-Reactive Protein Total Protein 5.1 L Albumin 2.6 L Triglycerides LDL Cholesterol Direct HDL Cholesterol Urine WBC (Auto) Urine Creatinine 12/20/17 12/21/17 12/21/17 23:35 01:11 01:11 WBC Hct MCV MCH RDW Plt Count Seg Neuts % (Manual) Lymphocytes % (Manual) Seg Neutrophils # Man Lymphocytes # (Manual) PT INR POC ABG pH POC ABG pCO2 POC ABG pO2 Sodium Potassium Chloride Carbon Dioxide BUN Creatinine Glucose POC Glucose Lactic Acid 8.30 H* 8.10 H* Calcium Phosphorus 1.90 L Magnesium 1.30 L Total Bilirubin AST ALT Alkaline Phosphatase Troponin T C-Reactive Protein Total Protein Albumin Triglycerides LDL Cholesterol Direct HDL Cholesterol Urine WBC (Auto) Urine Creatinine 12/21/17 12/21/17 12/21/17 01:11 01:50 02:09 WBC Hct MCV MCH RDW Plt Count Seg Neuts % (Manual) Lymphocytes % (Manual) Seg Neutrophils # Man Lymphocytes # (Manual) PT INR POC ABG pH POC ABG pCO2 POC ABG pO2 Sodium 133 L Potassium 3.3 L Chloride 97.9 L Carbon Dioxide 15 L BUN 26 H Creatinine 2.1 H Glucose 504 H* POC Glucose 391 H Lactic Acid Calcium 6.4 L Phosphorus Magnesium Total Bilirubin AST ALT Alkaline Phosphatase Troponin T C-Reactive Protein Total Protein Albumin Triglycerides LDL Cholesterol Direct HDL Cholesterol Urine WBC (Auto) 38.0 H Urine Creatinine 12/21/17 12/21/17 12/21/17 03:10 03:26 05:15 WBC Hct MCV MCH RDW Plt Count Seg Neuts % (Manual) Lymphocytes % (Manual) Seg Neutrophils # Man Lymphocytes # (Manual) PT INR POC ABG pH POC ABG pCO2 POC ABG pO2 Sodium 135 L Potassium 3.3 L Chloride Carbon Dioxide 14 L BUN 25 H Creatinine 1.9 H Glucose 443 H POC Glucose 389 H 407 H Lactic Acid Calcium 6.0 L Phosphorus Magnesium Total Bilirubin AST ALT Alkaline Phosphatase Troponin T C-Reactive Protein Total Protein Albumin Triglycerides LDL Cholesterol Direct HDL Cholesterol Urine WBC (Auto) Urine Creatinine 12/21/17 12/21/17 12/21/17 06:00 06:00 06:09 WBC Hct MCV MCH RDW Plt Count Seg Neuts % (Manual) Lymphocytes % (Manual) Seg Neutrophils # Man Lymphocytes # (Manual) PT INR POC ABG pH POC ABG pCO2 POC ABG pO2 Sodium Potassium 3.4 L Chloride Carbon Dioxide 12 L BUN 28 H Creatinine 1.9 H Glucose 283 H POC Glucose 326 H Lactic Acid 7.90 H* Calcium 6.0 L Phosphorus Magnesium Total Bilirubin AST ALT Alkaline Phosphatase Troponin T C-Reactive Protein Total Protein Albumin Triglycerides LDL Cholesterol Direct HDL Cholesterol Urine WBC (Auto) Urine Creatinine 12/21/17 12/21/17 12/21/17 07:23 08:16 08:44 WBC Hct MCV MCH RDW Plt Count Seg Neuts % (Manual) Lymphocytes % (Manual) Seg Neutrophils # Man Lymphocytes # (Manual) PT INR POC ABG pH POC ABG pCO2 POC ABG pO2 Sodium Potassium 3.3 L Chloride 107.8 H Carbon Dioxide 14 L BUN 29 H Creatinine 2.0 H Glucose 140 H POC Glucose 267 H 257 H Lactic Acid Calcium 6.2 L Phosphorus Magnesium Total Bilirubin AST ALT Alkaline Phosphatase Troponin T C-Reactive Protein Total Protein Albumin Triglycerides LDL Cholesterol Direct HDL Cholesterol Urine WBC (Auto) Urine Creatinine 12/21/17 12/21/17 12/21/17 08:44 08:44 09:02 WBC Hct MCV MCH RDW Plt Count Seg Neuts % (Manual) Lymphocytes % (Manual) Seg Neutrophils # Man Lymphocytes # (Manual) PT INR POC ABG pH POC ABG pCO2 POC ABG pO2 Sodium Potassium Chloride Carbon Dioxide BUN Creatinine Glucose POC Glucose 211 H Lactic Acid 6.40 H* Calcium Phosphorus Magnesium Total Bilirubin AST ALT Alkaline Phosphatase Troponin T C-Reactive Protein 27.10 H Total Protein Albumin Triglycerides LDL Cholesterol Direct HDL Cholesterol Urine WBC (Auto) Urine Creatinine 12/21/17 12/21/17 12/21/17 09:35 10:27 11:57 WBC Hct MCV MCH RDW Plt Count Seg Neuts % (Manual) Lymphocytes % (Manual) Seg Neutrophils # Man Lymphocytes # (Manual) PT INR POC ABG pH POC ABG pCO2 POC ABG pO2 Sodium Potassium Chloride Carbon Dioxide BUN Creatinine Glucose POC Glucose 182 H 142 H 134 H Lactic Acid Calcium Phosphorus Magnesium Total Bilirubin AST ALT Alkaline Phosphatase Troponin T C-Reactive Protein Total Protein Albumin Triglycerides LDL Cholesterol Direct HDL Cholesterol Urine WBC (Auto) Urine Creatinine 12/21/17 12/21/17 12/21/17 13:27 15:20 17:39 WBC Hct MCV MCH RDW Plt Count Seg Neuts % (Manual) Lymphocytes % (Manual) Seg Neutrophils # Man Lymphocytes # (Manual) PT INR POC ABG pH POC ABG pCO2 POC ABG pO2 Sodium Potassium Chloride Carbon Dioxide BUN Creatinine Glucose POC Glucose 161 H 189 H Lactic Acid Calcium Phosphorus Magnesium Total Bilirubin AST ALT Alkaline Phosphatase Troponin T 0.087 H C-Reactive Protein Total Protein Albumin Triglycerides 202 H LDL Cholesterol Direct 6 L HDL Cholesterol 10 L Urine WBC (Auto) Urine Creatinine 12/21/17 12/21/17 12/21/17 17:47 19:32 20:56 WBC Hct MCV MCH RDW Plt Count Seg Neuts % (Manual) Lymphocytes % (Manual) Seg Neutrophils # Man Lymphocytes # (Manual) PT INR POC ABG pH POC ABG pCO2 POC ABG pO2 Sodium Potassium Chloride 107.2 H Carbon Dioxide 14 L BUN 32 H Creatinine 2.4 H Glucose 171 H POC Glucose 160 H 136 H Lactic Acid Calcium 6.6 L Phosphorus Magnesium Total Bilirubin AST ALT Alkaline Phosphatase Troponin T C-Reactive Protein Total Protein Albumin Triglycerides LDL Cholesterol Direct HDL Cholesterol Urine WBC (Auto) Urine Creatinine 12/21/17 12/22/17 12/22/17 21:12 00:29 03:08 WBC Hct MCV MCH RDW Plt Count Seg Neuts % (Manual) Lymphocytes % (Manual) Seg Neutrophils # Man Lymphocytes # (Manual) PT INR POC ABG pH 7.152 L 7.241 L POC ABG pCO2 28.1 L POC ABG pO2 62 L 113 H Sodium Potassium Chloride Carbon Dioxide BUN Creatinine Glucose POC Glucose 109 H Lactic Acid Calcium Phosphorus Magnesium Total Bilirubin AST ALT Alkaline Phosphatase Troponin T C-Reactive Protein Total Protein Albumin Triglycerides LDL Cholesterol Direct HDL Cholesterol Urine WBC (Auto) Urine Creatinine 12/22/17 12/22/17 12/22/17 04:29 04:30 04:30 WBC 21.9 H Hct MCV 77 L MCH 25 L RDW 16.6 H Plt Count 57 L Seg Neuts % (Manual) Lymphocytes % (Manual) Seg Neutrophils # Man Lymphocytes # (Manual) PT INR POC ABG pH POC ABG pCO2 POC ABG pO2 Sodium Potassium Chloride Carbon Dioxide 14 L BUN 37 H Creatinine 2.7 H Glucose 145 H POC Glucose 139 H Lactic Acid Calcium 6.4 L Phosphorus Magnesium Total Bilirubin AST ALT Alkaline Phosphatase Troponin T C-Reactive Protein Total Protein Albumin Triglycerides LDL Cholesterol Direct HDL Cholesterol Urine WBC (Auto) Urine Creatinine 12/22/17 12/22/17 12/22/17 04:30 05:24 05:54 WBC Hct MCV MCH RDW Plt Count Seg Neuts % (Manual) Lymphocytes % (Manual) Seg Neutrophils # Man Lymphocytes # (Manual) PT INR POC ABG pH POC ABG pCO2 POC ABG pO2 Sodium Potassium Chloride Carbon Dioxide BUN Creatinine Glucose POC Glucose 144 H 145 H Lactic Acid 3.30 H* Calcium Phosphorus Magnesium Total Bilirubin AST ALT Alkaline Phosphatase Troponin T C-Reactive Protein Total Protein Albumin Triglycerides LDL Cholesterol Direct HDL Cholesterol Urine WBC (Auto) Urine Creatinine 12/22/17 12/22/17 12/22/17 07:56 07:56 10:09 WBC Hct MCV MCH RDW Plt Count Seg Neuts % (Manual) Lymphocytes % (Manual) Seg Neutrophils # Man Lymphocytes # (Manual) PT INR POC ABG pH 7.180 L POC ABG pCO2 POC ABG pO2 117 H Sodium Potassium Chloride Carbon Dioxide 14 L BUN 39 H Creatinine 2.9 H Glucose 174 H POC Glucose Lactic Acid 3.00 H* Calcium 6.7 L Phosphorus Magnesium Total Bilirubin AST ALT Alkaline Phosphatase Troponin T C-Reactive Protein Total Protein Albumin Triglycerides LDL Cholesterol Direct HDL Cholesterol Urine WBC (Auto) Urine Creatinine 12/22/17 12/22/17 12/22/17 10:12 12:19 14:23 WBC Hct MCV MCH RDW Plt Count Seg Neuts % (Manual) Lymphocytes % (Manual) Seg Neutrophils # Man Lymphocytes # (Manual) PT INR POC ABG pH 7.241 L 7.285 L POC ABG pCO2 33.9 L 29.9 L POC ABG pO2 45 L 117 H Sodium Potassium Chloride Carbon Dioxide BUN Creatinine Glucose POC Glucose 185 H Lactic Acid Calcium Phosphorus Magnesium Total Bilirubin AST ALT Alkaline Phosphatase Troponin T C-Reactive Protein Total Protein Albumin Triglycerides LDL Cholesterol Direct HDL Cholesterol Urine WBC (Auto) Urine Creatinine 12/22/17 12/22/17 12/22/17 14:27 17:22 19:58 WBC Hct MCV MCH RDW Plt Count Seg Neuts % (Manual) Lymphocytes % (Manual) Seg Neutrophils # Man Lymphocytes # (Manual) PT INR POC ABG pH 7.338 L POC ABG pCO2 27.6 L POC ABG pO2 167 H Sodium Potassium Chloride Carbon Dioxide BUN Creatinine Glucose POC Glucose 220 H 197 H Lactic Acid Calcium Phosphorus Magnesium Total Bilirubin AST ALT Alkaline Phosphatase Troponin T C-Reactive Protein Total Protein Albumin Triglycerides LDL Cholesterol Direct HDL Cholesterol Urine WBC (Auto) Urine Creatinine 12/22/17 12/23/17 12/23/17 21:18 05:30 05:30 WBC 14.5 H Hct MCV 75 L MCH 26 L RDW 16.7 H Plt Count 26 L Seg Neuts % (Manual) Lymphocytes % (Manual) Seg Neutrophils # Man Lymphocytes # (Manual) PT INR POC ABG pH POC ABG pCO2 POC ABG pO2 Sodium Potassium Chloride Carbon Dioxide 15 L BUN 49 H Creatinine 3.5 H Glucose 123 H POC Glucose 189 H Lactic Acid Calcium 6.7 L Phosphorus Magnesium Total Bilirubin 3.60 H AST 93 H ALT 58 H Alkaline Phosphatase Troponin T C-Reactive Protein Total Protein 4.5 L Albumin 2.0 L Triglycerides LDL Cholesterol Direct HDL Cholesterol Urine WBC (Auto) Urine Creatinine 12/23/17 12/23/17 12/23/17 05:30 12:31 15:13 WBC Hct MCV MCH RDW Plt Count Seg Neuts % (Manual) Lymphocytes % (Manual) Seg Neutrophils # Man Lymphocytes # (Manual) PT INR POC ABG pH POC ABG pCO2 POC ABG pO2 Sodium Potassium Chloride Carbon Dioxide BUN Creatinine Glucose POC Glucose 141 H Lactic Acid Calcium Phosphorus Magnesium Total Bilirubin AST ALT Alkaline Phosphatase Troponin T C-Reactive Protein 38.70 H Total Protein Albumin Triglycerides LDL Cholesterol Direct HDL Cholesterol Urine WBC (Auto) Urine Creatinine 65.1 H 12/23/17 12/24/17 12/24/17 18:53 00:13 05:15 WBC 14.7 H Hct MCV 76 L MCH 25 L RDW 16.6 H Plt Count 20 L Seg Neuts % (Manual) Lymphocytes % (Manual) Seg Neutrophils # Man Lymphocytes # (Manual) PT INR POC ABG pH POC ABG pCO2 POC ABG pO2 Sodium Potassium Chloride Carbon Dioxide BUN Creatinine Glucose POC Glucose 205 H 207 H Lactic Acid Calcium Phosphorus Magnesium Total Bilirubin AST ALT Alkaline Phosphatase Troponin T C-Reactive Protein Total Protein Albumin Triglycerides LDL Cholesterol Direct HDL Cholesterol Urine WBC (Auto) Urine Creatinine 12/24/17 12/24/17 12/24/17 05:15 05:51 08:31 WBC Hct MCV MCH RDW Plt Count Seg Neuts % (Manual) Lymphocytes % (Manual) Seg Neutrophils # Man Lymphocytes # (Manual) PT INR POC ABG pH POC ABG pCO2 POC ABG pO2 Sodium Potassium Chloride 107.2 H Carbon Dioxide 19 L BUN 67 H Creatinine 4.0 H Glucose 150 H POC Glucose 176 H 251 H Lactic Acid Calcium 7.2 L Phosphorus Magnesium Total Bilirubin 5.60 H AST 47 H ALT Alkaline Phosphatase Troponin T C-Reactive Protein Total Protein 4.3 L Albumin 1.9 L Triglycerides LDL Cholesterol Direct HDL Cholesterol Urine WBC (Auto) Urine Creatinine 12/24/17 12/24/17 12/24/17 11:53 17:19 21:16 WBC Hct MCV MCH RDW Plt Count Seg Neuts % (Manual) Lymphocytes % (Manual) Seg Neutrophils # Man Lymphocytes # (Manual) PT INR POC ABG pH POC ABG pCO2 POC ABG pO2 Sodium Potassium Chloride Carbon Dioxide BUN Creatinine Glucose POC Glucose 274 H 302 H 345 H Lactic Acid Calcium Phosphorus Magnesium Total Bilirubin AST ALT Alkaline Phosphatase Troponin T C-Reactive Protein Total Protein Albumin Triglycerides LDL Cholesterol Direct HDL Cholesterol Urine WBC (Auto) Urine Creatinine 12/25/17 12/25/17 12/25/17 05:55 05:55 08:21 WBC 13.7 H Hct 30.2 L MCV 75 L MCH 25 L RDW 17.2 H Plt Count 24 L Seg Neuts % (Manual) 85.0 H Lymphocytes % (Manual) 3.0 L Seg Neutrophils # Man 11.6 H Lymphocytes # (Manual) 0.4 L PT INR POC ABG pH POC ABG pCO2 POC ABG pO2 Sodium Potassium 3.5 L Chloride Carbon Dioxide BUN 81 H Creatinine 3.9 H Glucose 471 H POC Glucose 468 H Lactic Acid Calcium 7.5 L Phosphorus Magnesium Total Bilirubin 7.70 H AST ALT Alkaline Phosphatase 234 H Troponin T C-Reactive Protein Total Protein 4.9 L Albumin 1.6 L Triglycerides LDL Cholesterol Direct HDL Cholesterol Urine WBC (Auto) Urine Creatinine
--- NOTE | 2017-12-25 09:01 | Progress Note ---
Assessment and Plan 1. Acute kidney injury: Vasomotor / hemodynamic MARLENE in the setting of septic shock. Creatinine level is about the same as yesterday Continue bicarbonate drip. Monitor for [employer] needs. Renal prognosis is guarded. 2. Septic shock: E.Coli bacteremia. Off Levophed. On Cefepime. 3. Left hydronephrosis: Acute pyelonephritis. Improving. 4. DKA: Improving. 5. Acute Encephalopathy. 6. Thrombocytopenia. Subjective Date of service: 12/25/17 Principal diagnosis: septic shock Interval history: Patient was seen and examined at the bedside. Objective - Vital Signs Vital signs: Vital Signs - 12hr 12/24/17 12/24/17 12/24/17 21:08 21:15 21:30 Temperature Pulse Rate 94 H 93 H Pulse Rate [ From Monitor] Respiratory 18 17 Rate Blood Pressure 129/77 129/77 O2 Sat by Pulse 99 99 99 Oximetry 12/24/17 12/24/17 12/24/17 21:45 22:00 22:01 Temperature Pulse Rate 95 H 71 71 Pulse Rate [ From Monitor] Respiratory 15 16 Rate Blood Pressure 129/77 107/57 O2 Sat by Pulse 99 100 97 Oximetry 12/24/17 12/24/17 12/24/17 22:15 22:31 22:45 Temperature Pulse Rate 93 H 90 93 H Pulse Rate [ From Monitor] Respiratory 16 16 18 Rate Blood Pressure 107/57 107/57 107/57 O2 Sat by Pulse 99 99 99 Oximetry 12/24/17 12/24/17 12/24/17 23:00 23:03 23:15 Temperature Pulse Rate 92 H 87 88 Pulse Rate [ From Monitor] Respiratory 16 20 19 Rate Blood Pressure 132/75 107/57 132/75 O2 Sat by Pulse 98 100 99 Oximetry 12/24/17 12/24/17 12/25/17 23:31 23:45 00:00 Temperature 98.1 F Pulse Rate 87 90 93 H Pulse Rate [ 87 From Monitor] Respiratory 16 23 21 Rate Blood Pressure 132/75 132/75 128/78 O2 Sat by Pulse 100 99 99 Oximetry 12/25/17 12/25/17 12/25/17 00:01 00:15 00:31 Temperature Pulse Rate 88 88 92 H Pulse Rate [ From Monitor] Respiratory 13 20 19 Rate Blood Pressure 128/78 128/78 128/78 O2 Sat by Pulse 99 99 99 Oximetry 12/25/17 12/25/17 12/25/17 00:45 01:00 01:15 Temperature Pulse Rate 91 H 90 96 H Pulse Rate [ From Monitor] Respiratory 19 17 20 Rate Blood Pressure 128/78 125/72 125/72 O2 Sat by Pulse 100 98 99 Oximetry 12/25/17 12/25/17 12/25/17 01:31 01:45 02:00 Temperature Pulse Rate 95 H 93 H 93 H Pulse Rate [ From Monitor] Respiratory 19 18 18 Rate Blood Pressure 125/72 125/72 115/74 O2 Sat by Pulse 98 98 98 Oximetry 12/25/17 12/25/17 12/25/17 02:15 02:31 02:45 Temperature Pulse Rate 93 H 94 H 92 H Pulse Rate [ From Monitor] Respiratory 19 13 17 Rate Blood Pressure 115/74 115/74 115/74 O2 Sat by Pulse 100 98 99 Oximetry 12/25/17 12/25/17 12/25/17 03:00 03:15 03:31 Temperature Pulse Rate 89 73 89 Pulse Rate [ From Monitor] Respiratory 18 17 15 Rate Blood Pressure 116/77 116/77 116/77 O2 Sat by Pulse 98 100 100 Oximetry 12/25/17 12/25/17 12/25/17 03:45 04:00 04:15 Temperature Pulse Rate 89 88 88 Pulse Rate [ 83 From Monitor] Respiratory 15 19 21 Rate Blood Pressure 116/77 134/77 134/77 O2 Sat by Pulse 100 98 100 Oximetry 12/25/17 12/25/17 12/25/17 04:19 04:31 04:45 Temperature Pulse Rate 85 93 H 94 H Pulse Rate [ From Monitor] Respiratory 16 22 16 Rate Blood Pressure 134/77 134/77 134/77 O2 Sat by Pulse 100 99 99 Oximetry 12/25/17 12/25/17 12/25/17 05:00 05:15 05:31 Temperature Pulse Rate 91 H 93 H 94 H Pulse Rate [ From Monitor] Respiratory 19 21 16 Rate Blood Pressure 141/85 134/77 134/77 O2 Sat by Pulse 97 99 98 Oximetry 12/25/17 12/25/17 12/25/17 05:45 06:01 06:15 Temperature Pulse Rate 99 H 99 H 98 H Pulse Rate [ From Monitor] Respiratory 23 14 17 Rate Blood Pressure 141/85 143/85 141/85 O2 Sat by Pulse 96 97 Oximetry 12/25/17 12/25/17 12/25/17 06:31 06:45 07:01 Temperature Pulse Rate 101 H 98 H 98 H Pulse Rate [ From Monitor] Respiratory 22 17 19 Rate Blood Pressure 141/85 141/85 119/67 O2 Sat by Pulse 97 97 95 Oximetry 12/25/17 12/25/17 12/25/17 07:15 07:31 07:45 Temperature Pulse Rate 96 H 94 H 91 H Pulse Rate [ From Monitor] Respiratory 14 18 18 Rate Blood Pressure 119/67 119/67 119/67 O2 Sat by Pulse 98 96 98 Oximetry 12/25/17 08:00 Temperature 97.3 F L Pulse Rate 96 H Pulse Rate [ 97 H From Monitor] Respiratory 20 Rate Blood Pressure 125/74 O2 Sat by Pulse 95 Oximetry - General Appearance General appearance: well-developed, appears stated age, other (no distress) EENT: ATNC, PERRL, hearing intact Neck: supple Respiratory: Present: Clear to Ascultation Cardiology: regular, S1S2, no murmurs Gastrointestinal: normoactive bowel sounds, no tenderness Integumentary: no rash, warm and dry Neurologic: other (alert, talking some, moving extremities) Musculoskeletal: other (trace LE edema) - Lab 12/25/17 05:55 12/25/17 05:55 Most recent lab results Calcium 7.5 mg/dL (8.4-10.2) L 12/25/17 05:55 Phosphorus 3.60 mg/dL (2.5-4.5) 12/24/17 05:15 Magnesium 2.00 mg/dL (1.7-2.3) 12/24/17 05:15 Urine Creatinine 65.1 mg/dL (0.1-20.0) H 12/23/17 15:13 Urine Sodium 26 mmol/L 12/23/17 15:13
[2017-12-25] MEDS ORDERED: LANTUS SUB-Q ONE ×2 (09:19→11:00)
[2017-12-25] MEDS: MAXIPIME 2 GM in NACL 0.9% 20 ML IV SCH (09:26)
[2017-12-25] MEDS: Centrum Liq PO SCH (09:26)
[2017-12-25] MEDS: FOLVITE PO SCH (09:27)
[2017-12-25] MEDS: PEPCID IV SCH ×2 (09:27→21:34)
[2017-12-25] MEDS: VITAMIN B-1 PO SCH (09:27)
[2017-12-25] MEDS: SODIUM CHLORIDE FLUSH SYRINGE 10 ML IV SCH ×2 (09:32→21:36)
[2017-12-25] MEDS ORDERED: CEPHULAC PO SCH (10:00)
--- NOTE | 2017-12-25 10:07 | Progress Note ---
Assessment and Plan Assessment: 1) Severe Sepsis with septic +/- hypovolemic shock: improving, off pressors. Etiology most likely complicated UTI +/- GNR bacteremia +/- DKA/dehydration. -Lactic acid 8.3. -CRP 27. 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 -CT of the abdomen showed bibasilar infiltrates with enlarged fatty liver and the left hydronephrosis with hydroureter and air. -6/ GNR 10-100K 3) E. coli bacteremia: from UTI -12/20 E coli 3 of 4 bottles - pansensitive -12/22 blood cx pending 4) Acute encephalopathy 5) MARLENE - worsening 6) Acute respiratory failure - still on BIPAP 7) Uncontrolled diabetes with DKA 8) Hypertension 9) Diarrhea - ? reactive 10) Low platelets- from sepsis - worsening 11) ? pneumonia ? aspiration 12) Skin rash ? scabies S/P permethrin cream Plan: -continue cefepime -per IR not optimal candidate for nephrostomy tube due to minimally distented collecting system and thrombocytopenia. -contact isolation for 48 h after permethrim for scabies -monitor platelets and kidney function -upon discharge will do cipro PO renally dosed for 21 days Thank you for your consultation, will follow up with you. Guerda Nuñez MD Infectious Diseases Specialist [facility] ([facility] M [phone] O [phone] Subjective Date of service: 12/25/17 Principal diagnosis: septic shock Interval history: Alert in [place] O2, off pressors, No fever. Microbiology: Blood cultures: 12/20 E coli 3 of 4 bottles 12/22 ngtd Urine cultures: 12/20 E coli 10-100K Current Antimicrobials: cefepime 12/23 Previous Antimicrobials: Zosyn Vancomycin meropenem Objective - Exam Narrative Exam: General appearance: alert in NAD Eyes: anicteric sclerae, moist conjunctivae; no lid-lag; PERRLA HENT: Atraumatic; oropharynx clear Neck: Trachea midline; supple, no thyromegaly or lymphadenopathy Lungs: abeba scattered rhonchi CV: RRR, no murmurs Abdomen: Soft, non-tender Extremities: No peripheral edema or extremity lymphadenopathy Skin: Multiple nodular lesions in the arms, legs and abdominal wall Psych: alert talking. Neuro: alert Lines: - Constitutional Vitals: Vital Signs Temp Pulse Resp BP Pulse Ox 97.3 F L 97 H 20 125/74 97 12/25/17 08:00 12/25/17 08:00 12/25/17 08:00 12/25/17 08:00 12/25/17 09:17 Temperature -Last 24 Hours Temperature 97.3 F Temperature 98.1 F Temperature 98 F - Labs CBC & Chem 7: 12/25/17 05:55 12/25/17 05:55 Labs: Abnormal lab results 12/24/17 12/24/17 12/24/17 Range/Units 08:31 11:53 17:19 WBC (4.5-11.0) K/mm3 Hct (30.3-42.9) % MCV (79-97) fl MCH (28-32) pg RDW (13.2-15.2) % Plt Count (140-440) K/mm3 Seg Neuts % (Manual) (40.0-70.0) % Lymphocytes % (Manual) (13.4-35.0) % Seg Neutrophils # Man (1.8-7.7) K/mm3 Lymphocytes # (Manual) (1.2-5.4) K/mm3 Potassium (3.6-5.0) mmol/L BUN (7-17) mg/dL Creatinine (0.7-1.2) mg/dL Glucose (65-100) mg/dL POC Glucose 251 H 274 H 302 H (70-105) Calcium (8.4-10.2) mg/dL Total Bilirubin (0.1-1.2) mg/dL Alkaline Phosphatase (35-129) units/L C-Reactive Protein (0.00-1.30) mg/dL Total Protein (6.3-8.2) g/dL Albumin (3.9-5) g/dL 12/24/17 12/25/17 12/25/17 Range/Units 21:16 05:55 05:55 WBC 13.7 H (4.5-11.0) K/mm3 Hct 30.2 L (30.3-42.9) % MCV 75 L (79-97) fl MCH 25 L (28-32) pg RDW 17.2 H (13.2-15.2) % Plt Count 24 L (140-440) K/mm3 Seg Neuts % (Manual) 85.0 H (40.0-70.0) % Lymphocytes % (Manual) 3.0 L (13.4-35.0) % Seg Neutrophils # Man 11.6 H (1.8-7.7) K/mm3 Lymphocytes # (Manual) 0.4 L (1.2-5.4) K/mm3 Potassium 3.5 L (3.6-5.0) mmol/L BUN 81 H (7-17) mg/dL Creatinine 3.9 H (0.7-1.2) mg/dL Glucose 471 H (65-100) mg/dL POC Glucose 345 H (70-105) Calcium 7.5 L (8.4-10.2) mg/dL Total Bilirubin 7.70 H (0.1-1.2) mg/dL Alkaline Phosphatase 234 H (35-129) units/L C-Reactive Protein (0.00-1.30) mg/dL Total Protein 4.9 L (6.3-8.2) g/dL Albumin 1.6 L (3.9-5) g/dL /18 /03/06 Range/Units 05:55 08:21 WBC (4.5-11.0) K/mm3 Hct (30.3-42.9) % MCV (79-97) fl MCH (28-32) pg RDW (13.2-15.2) % Plt Count (140-440) K/mm3 Seg Neuts % (Manual) (40.0-70.0) % Lymphocytes % (Manual) (13.4-35.0) % Seg Neutrophils # Man (1.8-7.7) K/mm3 Lymphocytes # (Manual) (1.2-5.4) K/mm3 Potassium (3.6-5.0) mmol/L BUN (7-17) mg/dL Creatinine (0.7-1.2) mg/dL Glucose (65-100) mg/dL POC Glucose 468 H (70-105) Calcium (8.4-10.2) mg/dL Total Bilirubin (0.1-1.2) mg/dL Alkaline Phosphatase (35-129) units/L C-Reactive Protein 19.90 H (0.00-1.30) mg/dL Total Protein (6.3-8.2) g/dL Albumin (3.9-5) g/dL
[2017-12-25] MEDS: ZOFRAN IV PRN (10:36)
[2017-12-25 16:22] LABS: Heparin-Induced Platelet Antib Negative (Negative); Unfractionated Heparin Negative (Negative)
--- NOTE | 2017-12-25 16:26 | Progress Note ---
Subjective Date of service: 12/25/17 Principal diagnosis: septic shock Interval history: 52-year-old female with a history of hypertension, diabetes admitted to ICU through the emergency room with complaints of fever, nausea vomiting and diarrhea that started yesterday. She's had 4 episodes of diarrhea today, stool is less watery. She also complained of abdominal pain on the left lower quadrant and lower back pain which she describes as sharp pain, intermittent in nature and lasted for a few seconds, intensity 6/10, no radiation, she cannot identify exacerbating or relieving factor. Sons at bedside are translators. The patient took that one dose of antibiotic this morning, she does not know the name of the antibiotic. patient was admitted to the ICU with Septic Shock and placed in the ICU 12/25 patient is lethargic but can be aroused, unable to get any history from the patient, no family member in the room at this time. She has arm restraints All interdisciplinary notes reviewed and appreciated. All lab results reviewed ROS: Unable to obtain secondary to lethargy Assessment and plan: Septic shock: ID note reviewed and appreciated Continue antibiotics per ID recommendations DKA: Improved off insulin drip Blood sugars poorly controlled Adjust basal insulin dose and continue sliding-scale coverage Ecoli Bacterimia: Continue cefepime per ID recommendations Uncontrolled Type 2 DM: Insulin dose adjusted Shock Liver: Monitor LFTs Acute cystitis secondary to ECOLI/emphysematous pyelitis Continue present antibiotic MARLENE secondary to vasomotor nephropathy Nephrology following Left Hydronephrosis: Secondary to pyelonephritis per IR not optimal candidate for nephrostomy tube due to minimally distented collecting system and thrombocytopenia. Acute toxic encephalopathy: Secondary to sepsis and bacteremia DC restraints Gastroenteritis, viral Thrombocytopenia: Baseline platelet count is not known. Most likely secondary to sepsis We will monitor Plan Continue ICU care surgery consult MONITOR LIVER ENZYMES US OF THE LIVER Nephrology consult IF NO improvement, may need to biopsy lymphnodes Contact Isolation Check stool studies SON advised of findings DVT prophylaxis with SCD GUARDED PROGNOSIS Objective - Constitutional Vitals: Vital Signs - 12hr 12/25/17 12/25/17 12/25/17 04:31 04:45 05:00 Temperature Pulse Rate 93 H 94 H 91 H Pulse Rate [ From Monitor] Respiratory 22 16 19 Rate Blood Pressure 134/77 134/77 141/85 O2 Sat by Pulse 99 99 97 Oximetry 12/25/17 12/25/17 12/25/17 05:15 05:31 05:45 Temperature Pulse Rate 93 H 94 H 99 H Pulse Rate [ From Monitor] Respiratory 21 16 23 Rate Blood Pressure 134/77 134/77 141/85 O2 Sat by Pulse 99 98 Oximetry 12/25/17 12/25/17 12/25/17 06:01 06:15 06:31 Temperature Pulse Rate 99 H 98 H 101 H Pulse Rate [ From Monitor] Respiratory 14 17 22 Rate Blood Pressure 143/85 141/85 141/85 O2 Sat by Pulse 96 97 97 Oximetry 12/25/17 12/25/17 12/25/17 06:45 07:01 07:15 Temperature Pulse Rate 98 H 98 H 96 H Pulse Rate [ From Monitor] Respiratory 17 19 14 Rate Blood Pressure 141/85 119/67 119/67 O2 Sat by Pulse 97 95 98 Oximetry 12/25/17 12/25/17 12/25/17 07:31 07:45 08:00 Temperature 97.3 F L Pulse Rate 94 H 91 H 96 H Pulse Rate [ 97 H From Monitor] Respiratory 18 18 20 Rate Blood Pressure 119/67 119/67 125/74 O2 Sat by Pulse 96 98 95 Oximetry 12/25/17 12/25/17 12/25/17 08:15 08:31 08:45 Temperature Pulse Rate 97 H 96 H 98 H Pulse Rate [ From Monitor] Respiratory 19 17 15 Rate Blood Pressure 125/74 125/74 125/74 O2 Sat by Pulse 96 96 97 Oximetry 12/25/17 12/25/17 12/25/17 09:00 09:15 09:17 Temperature Pulse Rate 97 H 95 H Pulse Rate [ From Monitor] Respiratory 16 16 Rate Blood Pressure 128/71 125/74 O2 Sat by Pulse 95 97 97 Oximetry 12/25/17 12/25/17 12/25/17 09:31 09:45 10:00 Temperature Pulse Rate 95 H 100 H 99 H Pulse Rate [ From Monitor] Respiratory 19 23 20 Rate Blood Pressure 125/74 125/74 118/73 O2 Sat by Pulse 96 95 93 Oximetry 12/25/17 12/25/17 12/25/17 10:15 10:31 10:45 Temperature Pulse Rate 96 H 100 H 99 H Pulse Rate [ From Monitor] Respiratory 16 16 22 Rate Blood Pressure 118/73 118/73 118/73 O2 Sat by Pulse 95 95 96 Oximetry 12/25/17 12/25/17 12/25/17 11:01 11:15 11:31 Temperature Pulse Rate 98 H 98 H 99 H Pulse Rate [ From Monitor] Respiratory 22 22 19 Rate Blood Pressure 118/73 118/73 118/73 O2 Sat by Pulse 90 94 96 Oximetry 12/25/17 12/25/17 12/25/17 11:45 12:00 12:15 Temperature 405 F H Pulse Rate 101 H 96 H 95 H Pulse Rate [ 93 H From Monitor] Respiratory 22 20 19 Rate Blood Pressure 118/73 137/79 137/79 O2 Sat by Pulse 97 95 96 Oximetry 12/25/17 12/25/17 12/25/17 12:31 12:45 13:01 Temperature Pulse Rate 96 H 93 H 96 H Pulse Rate [ From Monitor] Respiratory 22 26 H 17 Rate Blood Pressure 137/79 137/79 115/69 O2 Sat by Pulse 97 97 95 Oximetry 12/25/17 12/25/17 12/25/17 13:15 13:31 13:45 Temperature Pulse Rate 95 H 93 H 96 H Pulse Rate [ From Monitor] Respiratory 18 18 18 Rate Blood Pressure 137/79 137/79 115/69 O2 Sat by Pulse 97 97 97 Oximetry 12/25/17 12/25/17 12/25/17 14:00 14:15 14:31 Temperature Pulse Rate 95 H 91 H 95 H Pulse Rate [ From Monitor] Respiratory 21 20 22 Rate Blood Pressure 124/70 124/70 124/70 O2 Sat by Pulse 96 97 97 Oximetry 12/25/17 12/25/17 14:45 15:00 Temperature Pulse Rate 91 H 95 H Pulse Rate [ From Monitor] Respiratory 21 18 Rate Blood Pressure 124/70 128/72 O2 Sat by Pulse 97 96 Oximetry General appearance: Present: no acute distress, other (lethargic) - EENT Eyes: PERRL, EOM intact ENT: hearing intact - Neck Neck: supple, normal ROM, no masses or JVD - Respiratory Respiratory effort: normal Respiratory: bilateral: CTA, diminished, negative: rhonchi, wheezing - Breasts Breasts: deferred - Cardiovascular Rhythm: regular Heart Sounds: Present: S1 & S2 Extremities: No edema - Gastrointestinal General gastrointestinal: Present: soft, non-tender. Absent: hepatomegaly, splenomegaly Rectal Exam: deferred - Neurologic Neurologic: moves all extremities, other (lethargic but can be aroused) - Labs CBC & Chem 7: 12/25/17 05:55 12/25/17 05:55 Labs: Abnormal lab results 12/24/17 12/24/17 12/25/17 Range/Units 17:19 21:16 05:55 WBC 13.7 H (4.5-11.0) K/mm3 Hct 30.2 L (30.3-42.9) % MCV 75 L (79-97) fl MCH 25 L (28-32) pg RDW 17.2 H (13.2-15.2) % Plt Count 24 L (140-440) K/mm3 Seg Neuts % (Manual) 85.0 H (40.0-70.0) % Lymphocytes % (Manual) 3.0 L (13.4-35.0) % Seg Neutrophils # Man 11.6 H (1.8-7.7) K/mm3 Lymphocytes # (Manual) 0.4 L (1.2-5.4) K/mm3 Potassium (3.6-5.0) mmol/L BUN (7-17) mg/dL Creatinine (0.7-1.2) mg/dL Glucose (65-100) mg/dL POC Glucose 302 H 345 H (70-105) Lactic Acid (0.7-2.0) mmol/L Calcium (8.4-10.2) mg/dL Total Bilirubin (0.1-1.2) mg/dL Alkaline Phosphatase (35-129) units/L C-Reactive Protein (0.00-1.30) mg/dL Total Protein (6.3-8.2) g/dL Albumin (3.9-5) g/dL 12/25/17 12/25/17 12/25/17 Range/Units 05:55 05:55 08:21 WBC (4.5-11.0) K/mm3 Hct (30.3-42.9) % MCV (79-97) fl MCH (28-32) pg RDW (13.2-15.2) % Plt Count (140-440) K/mm3 Seg Neuts % (Manual) (40.0-70.0) % Lymphocytes % (Manual) (13.4-35.0) % Seg Neutrophils # Man (1.8-7.7) K/mm3 Lymphocytes # (Manual) (1.2-5.4) K/mm3 Potassium 3.5 L (3.6-5.0) mmol/L BUN 81 H (7-17) mg/dL Creatinine 3.9 H (0.7-1.2) mg/dL Glucose 471 H (65-100) mg/dL POC Glucose 468 H (70-105) Lactic Acid (0.7-2.0) mmol/L Calcium 7.5 L (8.4-10.2) mg/dL Total Bilirubin 7.70 H (0.1-1.2) mg/dL Alkaline Phosphatase 234 H (35-129) units/L C-Reactive Protein 19.90 H (0.00-1.30) mg/dL Total Protein 4.9 L (6.3-8.2) g/dL Albumin 1.6 L (3.9-5) g/dL 18 18 12/25/17 Range/Units 09:41 12:14 16:13 WBC (4.5-11.0) K/mm3 Hct (30.3-42.9) % MCV (79-97) fl MCH (28-32) pg RDW (13.2-15.2) % Plt Count (140-440) K/mm3 Seg Neuts % (Manual) (40.0-70.0) % Lymphocytes % (Manual) (13.4-35.0) % Seg Neutrophils # Man (1.8-7.7) K/mm3 Lymphocytes # (Manual) (1.2-5.4) K/mm3 Potassium (3.6-5.0) mmol/L BUN (7-17) mg/dL Creatinine (0.7-1.2) mg/dL Glucose (65-100) mg/dL POC Glucose 405 H 264 H (70-105) Lactic Acid 2.10 H* (0.7-2.0) mmol/L Calcium (8.4-10.2) mg/dL Total Bilirubin (0.1-1.2) mg/dL Alkaline Phosphatase (35-129) units/L C-Reactive Protein (0.00-1.30) mg/dL Total Protein (6.3-8.2) g/dL Albumin (3.9-5) g/dL
[2017-12-25] MEDS ORDERED: LANTUS SUB-Q SCH ×2 (22:00)
--- NOTE | 2017-12-25 22:25 | Progress Note ---
Assessment and Plan - Patient Problems (1) Hyperbilirubinemia Current Visit: Yes Status: Acute Plan to address problem: Overall, this does not appear to be acalculus cholecystitis. The LFTs are not consistent with cholecystitis. Primarily, the bilirubin is elevated which may be due to hepatic insufficiency. Patient does not appear to be tender in that area when palpated. Family and staff confirm that she is not complaining of abdominal pain. She is tolerating her tube feeds and having bowel function. Would not recommend any procedures or surgeries at this time for the gallbladder. Please call with any questions. Thank you. Time=15min Subjective Date of service: 12/25/17 Patient Reports: Positive: bowel movement, other (nurse, , and son (Blaien ) report that patient has not complained of any abdominal pain, especially right side. Blaine noted that she some left sided abdominal on admission, but none since. ) Objective Vital Signs - 12hr 12/25/17 12/25/17 12/25/17 10:31 10:45 11:01 Temperature Pulse Rate 100 H 99 H 98 H Pulse Rate [ From Monitor] Respiratory 16 22 22 Rate Blood Pressure 118/73 118/73 118/73 O2 Sat by Pulse 95 96 90 Oximetry 12/25/17 12/25/17 12/25/17 11:15 11:31 11:45 Temperature Pulse Rate 98 H 99 H 101 H Pulse Rate [ From Monitor] Respiratory 22 19 22 Rate Blood Pressure 118/73 118/73 118/73 O2 Sat by Pulse 94 96 97 Oximetry 12/25/17 12/25/17 12/25/17 12:00 12:15 12:31 Temperature 405 F H Pulse Rate 96 H 95 H 96 H Pulse Rate [ 93 H From Monitor] Respiratory 20 19 22 Rate Blood Pressure 137/79 137/79 137/79 O2 Sat by Pulse 95 96 97 Oximetry 12/25/17 12/25/17 12/25/17 12:45 13:01 13:15 Temperature Pulse Rate 93 H 96 H 95 H Pulse Rate [ From Monitor] Respiratory 26 H 17 18 Rate Blood Pressure 137/79 115/69 137/79 O2 Sat by Pulse 97 95 97 Oximetry 12/25/17 12/25/17 12/25/17 13:31 13:45 14:00 Temperature Pulse Rate 93 H 96 H 95 H Pulse Rate [ From Monitor] Respiratory 18 18 21 Rate Blood Pressure 137/79 115/69 124/70 O2 Sat by Pulse 97 97 96 Oximetry 12/25/17 12/25/17 12/25/17 14:15 14:31 14:45 Temperature Pulse Rate 91 H 95 H 91 H Pulse Rate [ From Monitor] Respiratory 20 22 21 Rate Blood Pressure 124/70 124/70 124/70 O2 Sat by Pulse 97 97 97 Oximetry 12/25/17 12/25/17 12/25/17 15:00 15:15 15:31 Temperature Pulse Rate 95 H 94 H 97 H Pulse Rate [ From Monitor] Respiratory 18 21 22 Rate Blood Pressure 128/72 128/72 128/72 O2 Sat by Pulse 96 96 97 Oximetry 12/25/17 12/25/17 12/25/17 15:45 16:00 16:15 Temperature 98.6 F Pulse Rate 92 H 92 H 92 H Pulse Rate [ 86 From Monitor] Respiratory 19 17 19 Rate Blood Pressure 128/72 129/70 129/70 O2 Sat by Pulse 97 95 97 Oximetry 12/25/17 12/25/17 12/25/17 16:31 16:45 17:00 Temperature Pulse Rate 92 H 98 H 90 Pulse Rate [ From Monitor] Respiratory 18 23 19 Rate Blood Pressure 128/72 128/72 120/67 O2 Sat by Pulse 97 96 95 Oximetry 12/25/17 12/25/17 12/25/17 17:15 17:31 17:45 Temperature Pulse Rate 93 H 93 H 95 H Pulse Rate [ From Monitor] Respiratory 17 16 19 Rate Blood Pressure 120/67 120/67 120/67 O2 Sat by Pulse 97 95 97 Oximetry 12/25/17 12/25/17 12/25/17 18:00 18:15 18:31 Temperature Pulse Rate 96 H 92 H 83 Pulse Rate [ From Monitor] Respiratory 19 18 20 Rate Blood Pressure 120/67 120/67 O2 Sat by Pulse 97 97 96 Oximetry 12/25/17 12/25/17 12/25/17 18:45 19:00 19:15 Temperature Pulse Rate 93 H 94 H 83 Pulse Rate [ From Monitor] Respiratory 18 17 19 Rate Blood Pressure 120/67 124/73 124/73 O2 Sat by Pulse 97 95 98 Oximetry 12/25/17 12/25/1718 19:31 19:44 19:45 Temperature Pulse Rate 90 90 Pulse Rate [ From Monitor] Respiratory 15 15 Rate Blood Pressure 124/73 124/73 O2 Sat by Pulse 98 98 98 Oximetry 12/25/17 12/25/17 12/25/17 19:50 20:00 20:15 Temperature 97.4 F L Pulse Rate 95 H 93 H Pulse Rate [ 92 H From Monitor] Respiratory 20 17 Rate Blood Pressure 130/68 130/68 O2 Sat by Pulse 98 98 Oximetry 12/25/17 12/25/17 12/25/17 20:31 20:45 21:00 Temperature Pulse Rate 93 H 88 90 Pulse Rate [ From Monitor] Respiratory 14 16 15 Rate Blood Pressure 130/68 130/68 143/65 O2 Sat by Pulse 98 98 97 Oximetry 12/25/17 21:15 Temperature Pulse Rate 75 Pulse Rate [ From Monitor] Respiratory 16 Rate Blood Pressure 143/65 O2 Sat by Pulse 97 Oximetry - General physical appearance no distress, no pain - Abdomen soft, not tender, not distended, not guarding, not rigid, not wound - Labs 12/25/17 05:55 12/25/17 05:55 Diabetes panel 12/25/17 Range/Units 05:55 Sodium 140 (137-145) mmol/L Potassium 3.5 L (3.6-5.0) mmol/L Chloride 99.6 (98-107) mmol/L Carbon Dioxide 26 D (22-30) mmol/L BUN 81 H (7-17) mg/dL Creatinine 3.9 H (0.7-1.2) mg/dL Glucose 471 H (65-100) mg/dL Calcium 7.5 L (8.4-10.2) mg/dL AST 39 (5-40) units/L ALT 39 (7-56) units/L Alkaline Phosphatase 234 H (35-129) units/L Total Protein 4.9 L (6.3-8.2) g/dL Albumin 1.6 L (3.9-5) g/dL Calcium panel 12/25/17 Range/Units 05:55 Calcium 7.5 L (8.4-10.2) mg/dL Albumin 1.6 L (3.9-5) g/dL Pituitary panel 12/25/17 Range/Units 05:55 Sodium 140 (137-145) mmol/L Potassium 3.5 L (3.6-5.0) mmol/L Chloride 99.6 (98-107) mmol/L Carbon Dioxide 26 D (22-30) mmol/L BUN 81 H (7-17) mg/dL Creatinine 3.9 H (0.7-1.2) mg/dL Glucose 471 H (65-100) mg/dL Calcium 7.5 L (8.4-10.2) mg/dL Adrenal panel 12/25/17 Range/Units 05:55 Sodium 140 (137-145) mmol/L Potassium 3.5 L (3.6-5.0) mmol/L Chloride 99.6 (98-107) mmol/L Carbon Dioxide 26 D (22-30) mmol/L BUN 81 H (7-17) mg/dL Creatinine 3.9 H (0.7-1.2) mg/dL Glucose 471 H (65-100) mg/dL Calcium 7.5 L (8.4-10.2) mg/dL Total Bilirubin 7.70 H (0.1-1.2) mg/dL AST 39 (5-40) units/L ALT 39 (7-56) units/L Alkaline Phosphatase 234 H (35-129) units/L Total Protein 4.9 L (6.3-8.2) g/dL Albumin 1.6 L (3.9-5) g/dL
[2017-12-26] MEDS: SODIUM BICARBONATE 150 MEQ in D5W 1,000 ML IV SCH (03:56)
[2017-12-26] MEDS: ZOFRAN IV PRN ×2 (06:57→19:39)
[2017-12-26 07:04] LABS: Hematocrit 29.3 % (30.3-42.9); Mean Corpuscular HGB Conc 34 % (30-34); Mean Corpuscular Volume 74 fl (79-97); Red Blood Count 3.96 M/mm3 (3.65-5.03); Red Cell Distribution Width 16.5 % (13.2-15.2)
[2017-12-26 07:09] LABS: Mean Corpuscular Hemoglobin 25 pg (28-32)
[2017-12-26 07:16] LABS: Platelet Count 27 K/mm3 (140-440)
[2017-12-26 07:31] LABS: Albumin 1.4 g/dL (3.9-5); Calcium 7.2 mg/dL (8.4-10.2)
--- NOTE | 2017-12-26 09:12 | Progress Note ---
Assessment and Plan 1. Acute kidney injury: Vasomotor / hemodynamic MARLENE in the setting of septic shock. Creatinine level is improving. Continue IV fluids. Monitor for IMPREGNATOR AND DRIER needs. Renal prognosis is guarded. 2. Septic shock: E.Coli bacteremia. Off Levophed. On Cefepime. 3. Left hydronephrosis: Acute pyelonephritis. Improving. 4. DKA: Improving. 5. Acute Encephalopathy. 6. Thrombocytopenia. Subjective Date of service: 12/26/17 Principal diagnosis: septic shock Interval history: Patient was seen and examined at the bedside. Objective - Vital Signs Vital signs: Vital Signs - 12hr 12/25/17 12/25/17 12/25/17 21:15 21:31 21:45 Temperature Pulse Rate 75 93 H 96 H Pulse Rate [ From Monitor] Respiratory 16 22 19 Rate Blood Pressure 143/65 143/65 143/65 O2 Sat by Pulse 97 97 97 Oximetry 12/25/17 12/25/17 12/25/17 22:00 22:15 22:31 Temperature Pulse Rate 90 95 H 90 Pulse Rate [ From Monitor] Respiratory 17 17 16 Rate Blood Pressure 139/69 139/69 139/69 O2 Sat by Pulse 95 97 97 Oximetry 12/25/17 12/25/17 12/25/17 22:45 23:00 23:15 Temperature Pulse Rate 95 H 94 H 93 H Pulse Rate [ From Monitor] Respiratory 17 22 23 Rate Blood Pressure 139/69 130/73 130/73 O2 Sat by Pulse 98 96 99 Oximetry 12/25/17 12/25/17 12/25/17 23:22 23:31 23:39 Temperature Pulse Rate 94 H 95 H 91 H Pulse Rate [ From Monitor] Respiratory 17 17 21 Rate Blood Pressure 130/73 130/73 130/73 O2 Sat by Pulse 98 99 99 Oximetry 12/25/17 12/26/17 12/26/17 23:45 00:00 00:15 Temperature 98.7 F Pulse Rate 93 H 92 H 92 H Pulse Rate [ 92 H From Monitor] Respiratory 17 16 19 Rate Blood Pressure 130/73 130/79 130/79 O2 Sat by Pulse 99 97 99 Oximetry 12/26/17 12/26/17 12/26/17 00:31 00:45 01:00 Temperature Pulse Rate 93 H 96 H 97 H Pulse Rate [ From Monitor] Respiratory 18 17 18 Rate Blood Pressure 130/79 130/79 129/83 O2 Sat by Pulse 99 98 96 Oximetry 12/26/17 12/26/17 12/26/17 01:15 01:16 01:31 Temperature Pulse Rate 94 H 96 H 94 H Pulse Rate [ From Monitor] Respiratory 18 20 18 Rate Blood Pressure 129/83 138/76 129/83 O2 Sat by Pulse 98 100 98 Oximetry 12/26/17 12/26/17 12/26/17 01:45 02:00 02:15 Temperature Pulse Rate 92 H 87 90 Pulse Rate [ From Monitor] Respiratory 14 15 17 Rate Blood Pressure 129/83 127/72 129/83 O2 Sat by Pulse 97 95 99 Oximetry 12/26/17 12/26/17 12/26/17 02:31 02:45 03:00 Temperature Pulse Rate 90 88 88 Pulse Rate [ From Monitor] Respiratory 15 14 19 Rate Blood Pressure 129/83 127/72 118/79 O2 Sat by Pulse 98 99 98 Oximetry 12/26/17 12/26/17 12/26/17 03:15 03:31 03:45 Temperature Pulse Rate 93 H 91 H 91 H Pulse Rate [ From Monitor] Respiratory 17 17 20 Rate Blood Pressure 118/79 118/79 118/79 O2 Sat by Pulse 99 98 98 Oximetry 12/26/17 12/26/17 12/26/17 04:00 04:01 04:15 Temperature 98.4 F Pulse Rate 91 H 94 H Pulse Rate [ 92 H From Monitor] Respiratory 20 18 18 Rate Blood Pressure 144/77 144/77 O2 Sat by Pulse 99 97 98 Oximetry 12/26/17 12/26/17 12/26/17 04:31 04:45 05:00 Temperature Pulse Rate 91 H 88 87 Pulse Rate [ From Monitor] Respiratory 19 12 13 Rate Blood Pressure 144/77 144/77 142/72 O2 Sat by Pulse 99 98 96 Oximetry 12/26/17 12/26/17 12/26/17 05:15 05:31 05:45 Temperature Pulse Rate 90 96 H 97 H Pulse Rate [ From Monitor] Respiratory 15 16 15 Rate Blood Pressure 142/72 142/72 142/72 O2 Sat by Pulse 98 97 97 Oximetry 12/26/17 12/26/17 06:01 08:00 Temperature 98.3 F Pulse Rate 100 H Pulse Rate [ From Monitor] Respiratory 18 Rate Blood Pressure 142/72 O2 Sat by Pulse 97 Oximetry - General Appearance General appearance: well-developed, well-nourished, appears stated age, other ( no distress) EENT: ATNC, PERRL Neck: supple Respiratory: Present: Other (coarse breath sounds) Cardiology: regular, S1S2, no murmurs Gastrointestinal: normoactive bowel sounds, no tenderness, obese Integumentary: warm and dry Neurologic: other (not following any command) Musculoskeletal: other (1+ edema of both LEs noted) - Lab 12/26/17 06:54 12/26/17 06:54 Most recent lab results Calcium 7.2 mg/dL (8.4-10.2) L 12/26/17 06:54 Phosphorus 3.60 mg/dL (2.5-4.5) 12/24/17 05:15 Magnesium 2.00 mg/dL (1.7-2.3) 12/24/17 05:15 Urine Creatinine 65.1 mg/dL (0.1-20.0) H 12/23/17 15:13 Urine Sodium 26 mmol/L 12/23/17 15:13
[2017-12-26] MEDS: PEPCID IV SCH ×2 (09:14→21:43)
[2017-12-26] MEDS: VITAMIN B-1 PO SCH (09:14)
[2017-12-26] MEDS: FOLVITE PO SCH (09:15)
[2017-12-26] MEDS: Centrum Liq PO SCH (09:15)
[2017-12-26] MEDS: HumuLIN R SUB-Q SCH ×4 (09:17→21:44)
[2017-12-26] MEDS: SODIUM CHLORIDE FLUSH SYRINGE 10 ML IV SCH ×2 (09:18→21:43)
[2017-12-26] MEDS: MAXIPIME 2 GM in NACL 0.9% 20 ML IV SCH (09:19)
[2017-12-26] MEDS ORDERED: POTASSIUM CHLORIDE FEEDTUBE ONE (09:21)
--- NOTE | 2017-12-26 11:06 | Progress Note ---
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 MARLENE Left Hydronephrosis Fatty Liver Abnormal LFTs, mixed picture Skin rash Acute encephalopathy Gastroenteritis, viral Thrombocytopenia -NIPPV for work of breathing and for adjustment of minute ventilation for better acid-base -vasopressor support if needed to , keep MAP>65 -Add gram negative edilia coverage to therapy -VTE prophylaxis -Supplemental oxygen to keep O2 sats>90% -Agitation management -Accucheck with glycemic control - Discussed in detail with the at the bedside The high probability of a clinically significant, sudden or life threatening deterioration of the [pulmonary, Renal, infectious, cardiovascular ] system(s) required my full and direct attention, intervention and personal management. The aggregate critical care time was [35] minutes. This time is in addition to time spent performing reported procedures but includes the following: [X] Data Review and interpretation [X] Patient assessment and monitoring of vital signs [X] Documentation [X] Medication orders and management Subjective Date of service: 12/26/17 Principal diagnosis: septic shock Objective - Exam Narrative Exam: General appearance: alert in NAD Eyes: anicteric sclerae, moist conjunctivae; no lid-lag; PERRLA HENT: Atraumatic; oropharynx clear Neck: Trachea midline; supple, no thyromegaly or lymphadenopathy Lungs: abeba scattered rhonchi CV: RRR, no murmurs Abdomen: Soft, non-tender Extremities: No peripheral edema or extremity lymphadenopathy Skin: Multiple nodular lesions in the arms, legs and abdominal wall Psych: alert talking. Neuro: alert Lines: Vital Signs - 12hr 12/25/17 12/25/17 12/25/17 23:15 23:22 23:31 Temperature Pulse Rate 93 H 94 H 95 H Pulse Rate [ From Monitor] Respiratory 23 17 17 Rate Blood Pressure 130/73 130/73 130/73 O2 Sat by Pulse 99 98 99 Oximetry 12/25/17 12/25/17 12/26/17 23:39 23:45 00:00 Temperature 98.7 F Pulse Rate 91 H 93 H 92 H Pulse Rate [ 92 H From Monitor] Respiratory 21 17 16 Rate Blood Pressure 130/73 130/73 130/79 O2 Sat by Pulse 99 99 97 Oximetry 12/26/17 12/26/17 12/26/17 00:15 00:31 00:45 Temperature Pulse Rate 92 H 93 H 96 H Pulse Rate [ From Monitor] Respiratory 19 18 17 Rate Blood Pressure 130/79 130/79 130/79 O2 Sat by Pulse 99 99 98 Oximetry 12/26/17 12/26/17 12/26/17 01:00 01:15 01:16 Temperature Pulse Rate 97 H 94 H 96 H Pulse Rate [ From Monitor] Respiratory 18 18 20 Rate Blood Pressure 129/83 129/83 138/76 O2 Sat by Pulse 96 98 100 Oximetry 12/26/17 12/26/17 12/26/17 01:31 01:45 02:00 Temperature Pulse Rate 94 H 92 H 87 Pulse Rate [ From Monitor] Respiratory 18 14 15 Rate Blood Pressure 129/83 129/83 127/72 O2 Sat by Pulse 98 97 95 Oximetry 12/26/17 12/26/17 12/26/17 02:15 02:31 02:45 Temperature Pulse Rate 90 90 88 Pulse Rate [ From Monitor] Respiratory 17 15 14 Rate Blood Pressure 129/83 129/83 127/72 O2 Sat by Pulse 99 98 99 Oximetry 12/26/17 12/26/17 12/26/17 03:00 03:15 03:31 Temperature Pulse Rate 88 93 H 91 H Pulse Rate [ From Monitor] Respiratory 19 17 17 Rate Blood Pressure 118/79 118/79 118/79 O2 Sat by Pulse 98 99 98 Oximetry 12/26/17 12/26/17 12/26/17 03:45 04:00 04:01 Temperature 98.4 F Pulse Rate 91 H 91 H Pulse Rate [ 92 H From Monitor] Respiratory 20 20 18 Rate Blood Pressure 118/79 144/77 O2 Sat by Pulse 98 99 97 Oximetry 12/26/17 12/26/17 12/26/17 04:15 04:31 04:45 Temperature Pulse Rate 94 H 91 H 88 Pulse Rate [ From Monitor] Respiratory 18 19 12 Rate Blood Pressure 144/77 144/77 144/77 O2 Sat by Pulse 98 99 98 Oximetry 12/26/17 12/26/17 12/26/17 05:00 05:15 05:31 Temperature Pulse Rate 87 90 96 H Pulse Rate [ From Monitor] Respiratory 13 15 16 Rate Blood Pressure 142/72 142/72 142/72 O2 Sat by Pulse 96 98 97 Oximetry 12/26/17 12/26/17 12/26/17 05:45 06:01 07:01 Temperature Pulse Rate 97 H 100 H 93 H Pulse Rate [ From Monitor] Respiratory 15 18 16 Rate Blood Pressure 142/72 142/72 142/72 O2 Sat by Pulse 97 97 98 Oximetry 12/26/17 12/26/17 12/26/17 08:00 09:01 10:01 Temperature 98.3 F Pulse Rate 96 H 84 67 Pulse Rate [ From Monitor] Respiratory 16 16 19 Rate Blood Pressure 142/72 142/72 142/72 O2 Sat by Pulse 96 97 95 Oximetry CBC and BMP: 12/26/17 06:54 12/26/17 06:54 ABG, PT/INR, D-dimer: ABG POC ABG pH 7.338 (7.35-7.45) L 12/22/17 19:58 POC ABG pCO2 27.6 (35-45) L 12/22/17 19:58 POC ABG pO2 167 (80-105) H 12/22/17 19:58 POC ABG HCO3 14.8 12/22/17 19:58 POC ABG Total CO2 16 12/22/17 19:58 POC ABG O2 Sat 99 12/22/17 19:58 PT/INR, D-dimer PT 18.5 Sec. (12.2-14.9) H 12/20/17 23:35 INR 1.45 (0.87-1.13) H 12/20/17 23:35 Abnormal lab findings: Abnormal Labs 12/20/17 12/20/17 12/20/17 23:35 23:35 23:35 WBC Hgb Hct MCV 78 L MCH 26 L RDW 15.7 H Plt Count 77 L Seg Neuts % (Manual) 76.0 H Lymphocytes % (Manual) 6.0 L Seg Neutrophils # Man 8.2 H Lymphocytes # (Manual) 0.6 L PT 18.5 H INR 1.45 H POC ABG pH POC ABG pCO2 POC ABG pO2 Sodium 130 L Potassium 3.5 L Chloride 92.3 L Carbon Dioxide 17 L BUN 27 H Creatinine 2.2 H Glucose 535 H* POC Glucose Lactic Acid Calcium 7.0 L Phosphorus Magnesium Total Bilirubin AST ALT Alkaline Phosphatase 173 H Troponin T C-Reactive Protein Total Protein 5.1 L Albumin 2.6 L Triglycerides LDL Cholesterol Direct HDL Cholesterol Urine WBC (Auto) Urine Creatinine 12/20/17 12/21/17 12/21/17 23:35 01:11 01:11 WBC Hgb Hct MCV MCH RDW Plt Count Seg Neuts % (Manual) Lymphocytes % (Manual) Seg Neutrophils # Man Lymphocytes # (Manual) PT INR POC ABG pH POC ABG pCO2 POC ABG pO2 Sodium Potassium Chloride Carbon Dioxide BUN Creatinine Glucose POC Glucose Lactic Acid 8.30 H* 8.10 H* Calcium Phosphorus 1.90 L Magnesium 1.30 L Total Bilirubin AST ALT Alkaline Phosphatase Troponin T C-Reactive Protein Total Protein Albumin Triglycerides LDL Cholesterol Direct HDL Cholesterol Urine WBC (Auto) Urine Creatinine 12/21/17 12/21/17 12/21/17 01:11 01:50 02:09 WBC Hgb Hct MCV MCH RDW Plt Count Seg Neuts % (Manual) Lymphocytes % (Manual) Seg Neutrophils # Man Lymphocytes # (Manual) PT INR POC ABG pH POC ABG pCO2 POC ABG pO2 Sodium 133 L Potassium 3.3 L Chloride 97.9 L Carbon Dioxide 15 L BUN 26 H Creatinine 2.1 H Glucose 504 H* POC Glucose 391 H Lactic Acid Calcium 6.4 L Phosphorus Magnesium Total Bilirubin AST ALT Alkaline Phosphatase Troponin T C-Reactive Protein Total Protein Albumin Triglycerides LDL Cholesterol Direct HDL Cholesterol Urine WBC (Auto) 38.0 H Urine Creatinine 12/21/17 12/21/17 12/21/17 03:10 03:26 05:15 WBC Hgb Hct MCV MCH RDW Plt Count Seg Neuts % (Manual) Lymphocytes % (Manual) Seg Neutrophils # Man Lymphocytes # (Manual) PT INR POC ABG pH POC ABG pCO2 POC ABG pO2 Sodium 135 L Potassium 3.3 L Chloride Carbon Dioxide 14 L BUN 25 H Creatinine 1.9 H Glucose 443 H POC Glucose 389 H 407 H Lactic Acid Calcium 6.0 L Phosphorus Magnesium Total Bilirubin AST ALT Alkaline Phosphatase Troponin T C-Reactive Protein Total Protein Albumin Triglycerides LDL Cholesterol Direct HDL Cholesterol Urine WBC (Auto) Urine Creatinine 12/21/17 12/21/17 12/21/17 06:00 06:00 06:09 WBC Hgb Hct MCV MCH RDW Plt Count Seg Neuts % (Manual) Lymphocytes % (Manual) Seg Neutrophils # Man Lymphocytes # (Manual) PT INR POC ABG pH POC ABG pCO2 POC ABG pO2 Sodium Potassium 3.4 L Chloride Carbon Dioxide 12 L BUN 28 H Creatinine 1.9 H Glucose 283 H POC Glucose 326 H Lactic Acid 7.90 H* Calcium 6.0 L Phosphorus Magnesium Total Bilirubin AST ALT Alkaline Phosphatase Troponin T C-Reactive Protein Total Protein Albumin Triglycerides LDL Cholesterol Direct HDL Cholesterol Urine WBC (Auto) Urine Creatinine 12/21/17 12/21/17 12/21/17 07:23 08:16 08:44 WBC Hgb Hct MCV MCH RDW Plt Count Seg Neuts % (Manual) Lymphocytes % (Manual) Seg Neutrophils # Man Lymphocytes # (Manual) PT INR POC ABG pH POC ABG pCO2 POC ABG pO2 Sodium Potassium 3.3 L Chloride 107.8 H Carbon Dioxide 14 L BUN 29 H Creatinine 2.0 H Glucose 140 H POC Glucose 267 H 257 H Lactic Acid Calcium 6.2 L Phosphorus Magnesium Total Bilirubin AST ALT Alkaline Phosphatase Troponin T C-Reactive Protein Total Protein Albumin Triglycerides LDL Cholesterol Direct HDL Cholesterol Urine WBC (Auto) Urine Creatinine 12/21/17 12/21/17 12/21/17 08:44 08:44 09:02 WBC Hgb Hct MCV MCH RDW Plt Count Seg Neuts % (Manual) Lymphocytes % (Manual) Seg Neutrophils # Man Lymphocytes # (Manual) PT INR POC ABG pH POC ABG pCO2 POC ABG pO2 Sodium Potassium Chloride Carbon Dioxide BUN Creatinine Glucose POC Glucose 211 H Lactic Acid 6.40 H* Calcium Phosphorus Magnesium Total Bilirubin AST ALT Alkaline Phosphatase Troponin T C-Reactive Protein 27.10 H Total Protein Albumin Triglycerides LDL Cholesterol Direct HDL Cholesterol Urine WBC (Auto) Urine Creatinine 12/21/17 12/21/17 12/21/17 09:35 10:27 11:57 WBC Hgb Hct MCV MCH RDW Plt Count Seg Neuts % (Manual) Lymphocytes % (Manual) Seg Neutrophils # Man Lymphocytes # (Manual) PT INR POC ABG pH POC ABG pCO2 POC ABG pO2 Sodium Potassium Chloride Carbon Dioxide BUN Creatinine Glucose POC Glucose 182 H 142 H 134 H Lactic Acid Calcium Phosphorus Magnesium Total Bilirubin AST ALT Alkaline Phosphatase Troponin T C-Reactive Protein Total Protein Albumin Triglycerides LDL Cholesterol Direct HDL Cholesterol Urine WBC (Auto) Urine Creatinine 12/21/17 12/21/17 12/21/17 13:27 15:20 17:39 WBC Hgb Hct MCV MCH RDW Plt Count Seg Neuts % (Manual) Lymphocytes % (Manual) Seg Neutrophils # Man Lymphocytes # (Manual) PT INR POC ABG pH POC ABG pCO2 POC ABG pO2 Sodium Potassium Chloride Carbon Dioxide BUN Creatinine Glucose POC Glucose 161 H 189 H Lactic Acid Calcium Phosphorus Magnesium Total Bilirubin AST ALT Alkaline Phosphatase Troponin T 0.087 H C-Reactive Protein Total Protein Albumin Triglycerides 202 H LDL Cholesterol Direct 6 L HDL Cholesterol 10 L Urine WBC (Auto) Urine Creatinine 12/21/17 12/21/17 12/21/17 17:47 19:32 20:56 WBC Hgb Hct MCV MCH RDW Plt Count Seg Neuts % (Manual) Lymphocytes % (Manual) Seg Neutrophils # Man Lymphocytes # (Manual) PT INR POC ABG pH POC ABG pCO2 POC ABG pO2 Sodium Potassium Chloride 107.2 H Carbon Dioxide 14 L BUN 32 H Creatinine 2.4 H Glucose 171 H POC Glucose 160 H 136 H Lactic Acid Calcium 6.6 L Phosphorus Magnesium Total Bilirubin AST ALT Alkaline Phosphatase Troponin T C-Reactive Protein Total Protein Albumin Triglycerides LDL Cholesterol Direct HDL Cholesterol Urine WBC (Auto) Urine Creatinine 12/21/17 12/22/17 12/22/17 21:12 00:29 03:08 WBC Hgb Hct MCV MCH RDW Plt Count Seg Neuts % (Manual) Lymphocytes % (Manual) Seg Neutrophils # Man Lymphocytes # (Manual) PT INR POC ABG pH 7.152 L 7.241 L POC ABG pCO2 28.1 L POC ABG pO2 62 L 113 H Sodium Potassium Chloride Carbon Dioxide BUN Creatinine Glucose POC Glucose 109 H Lactic Acid Calcium Phosphorus Magnesium Total Bilirubin AST ALT Alkaline Phosphatase Troponin T C-Reactive Protein Total Protein Albumin Triglycerides LDL Cholesterol Direct HDL Cholesterol Urine WBC (Auto) Urine Creatinine 12/22/17 12/22/17 12/22/17 04:29 04:30 04:30 WBC 21.9 H Hgb Hct MCV 77 L MCH 25 L RDW 16.6 H Plt Count 57 L Seg Neuts % (Manual) Lymphocytes % (Manual) Seg Neutrophils # Man Lymphocytes # (Manual) PT INR POC ABG pH POC ABG pCO2 POC ABG pO2 Sodium Potassium Chloride Carbon Dioxide 14 L BUN 37 H Creatinine 2.7 H Glucose 145 H POC Glucose 139 H Lactic Acid Calcium 6.4 L Phosphorus Magnesium Total Bilirubin AST ALT Alkaline Phosphatase Troponin T C-Reactive Protein Total Protein Albumin Triglycerides LDL Cholesterol Direct HDL Cholesterol Urine WBC (Auto) Urine Creatinine 12/22/17 12/22/17 12/22/17 04:30 05:24 05:54 WBC Hgb Hct MCV MCH RDW Plt Count Seg Neuts % (Manual) Lymphocytes % (Manual) Seg Neutrophils # Man Lymphocytes # (Manual) PT INR POC ABG pH POC ABG pCO2 POC ABG pO2 Sodium Potassium Chloride Carbon Dioxide BUN Creatinine Glucose POC Glucose 144 H 145 H Lactic Acid 3.30 H* Calcium Phosphorus Magnesium Total Bilirubin AST ALT Alkaline Phosphatase Troponin T C-Reactive Protein Total Protein Albumin Triglycerides LDL Cholesterol Direct HDL Cholesterol Urine WBC (Auto) Urine Creatinine 12/22/17 12/22/17 12/22/17 07:56 07:56 10:09 WBC Hgb Hct MCV MCH RDW Plt Count Seg Neuts % (Manual) Lymphocytes % (Manual) Seg Neutrophils # Man Lymphocytes # (Manual) PT INR POC ABG pH 7.180 L POC ABG pCO2 POC ABG pO2 117 H Sodium Potassium Chloride Carbon Dioxide 14 L BUN 39 H Creatinine 2.9 H Glucose 174 H POC Glucose Lactic Acid 3.00 H* Calcium 6.7 L Phosphorus Magnesium Total Bilirubin AST ALT Alkaline Phosphatase Troponin T C-Reactive Protein Total Protein Albumin Triglycerides LDL Cholesterol Direct HDL Cholesterol Urine WBC (Auto) Urine Creatinine 12/22/17 12/22/17 12/22/17 10:12 12:19 14:23 WBC Hgb Hct MCV MCH RDW Plt Count Seg Neuts % (Manual) Lymphocytes % (Manual) Seg Neutrophils # Man Lymphocytes # (Manual) PT INR POC ABG pH 7.241 L 7.285 L POC ABG pCO2 33.9 L 29.9 L POC ABG pO2 45 L 117 H Sodium Potassium Chloride Carbon Dioxide BUN Creatinine Glucose POC Glucose 185 H Lactic Acid Calcium Phosphorus Magnesium Total Bilirubin AST ALT Alkaline Phosphatase Troponin T C-Reactive Protein Total Protein Albumin Triglycerides LDL Cholesterol Direct HDL Cholesterol Urine WBC (Auto) Urine Creatinine 12/22/17 12/22/17 12/22/17 14:27 17:22 19:58 WBC Hgb Hct MCV MCH RDW Plt Count Seg Neuts % (Manual) Lymphocytes % (Manual) Seg Neutrophils # Man Lymphocytes # (Manual) PT INR POC ABG pH 7.338 L POC ABG pCO2 27.6 L POC ABG pO2 167 H Sodium Potassium Chloride Carbon Dioxide BUN Creatinine Glucose POC Glucose 220 H 197 H Lactic Acid Calcium Phosphorus Magnesium Total Bilirubin AST ALT Alkaline Phosphatase Troponin T C-Reactive Protein Total Protein Albumin Triglycerides LDL Cholesterol Direct HDL Cholesterol Urine WBC (Auto) Urine Creatinine 12/22/17 12/23/17 12/23/17 21:18 05:30 05:30 WBC 14.5 H Hgb Hct MCV 75 L MCH 26 L RDW 16.7 H Plt Count 26 L Seg Neuts % (Manual) Lymphocytes % (Manual) Seg Neutrophils # Man Lymphocytes # (Manual) PT INR POC ABG pH POC ABG pCO2 POC ABG pO2 Sodium Potassium Chloride Carbon Dioxide 15 L BUN 49 H Creatinine 3.5 H Glucose 123 H POC Glucose 189 H Lactic Acid Calcium 6.7 L Phosphorus Magnesium Total Bilirubin 3.60 H AST 93 H ALT 58 H Alkaline Phosphatase Troponin T C-Reactive Protein Total Protein 4.5 L Albumin 2.0 L Triglycerides LDL Cholesterol Direct HDL Cholesterol Urine WBC (Auto) Urine Creatinine 12/23/17 12/23/17 12/23/17 05:30 12:31 15:13 WBC Hgb Hct MCV MCH RDW Plt Count Seg Neuts % (Manual) Lymphocytes % (Manual) Seg Neutrophils # Man Lymphocytes # (Manual) PT INR POC ABG pH POC ABG pCO2 POC ABG pO2 Sodium Potassium Chloride Carbon Dioxide BUN Creatinine Glucose POC Glucose 141 H Lactic Acid Calcium Phosphorus Magnesium Total Bilirubin AST ALT Alkaline Phosphatase Troponin T C-Reactive Protein 38.70 H Total Protein Albumin Triglycerides LDL Cholesterol Direct HDL Cholesterol Urine WBC (Auto) Urine Creatinine 65.1 H 12/23/17 12/24/17 12/24/17 18:53 00:13 05:15 WBC 14.7 H Hgb Hct MCV 76 L MCH 25 L RDW 16.6 H Plt Count 20 L Seg Neuts % (Manual) Lymphocytes % (Manual) Seg Neutrophils # Man Lymphocytes # (Manual) PT INR POC ABG pH POC ABG pCO2 POC ABG pO2 Sodium Potassium Chloride Carbon Dioxide BUN Creatinine Glucose POC Glucose 205 H 207 H Lactic Acid Calcium Phosphorus Magnesium Total Bilirubin AST ALT Alkaline Phosphatase Troponin T C-Reactive Protein Total Protein Albumin Triglycerides LDL Cholesterol Direct HDL Cholesterol Urine WBC (Auto) Urine Creatinine 12/24/17 12/24/17 12/24/17 05:15 05:51 08:31 WBC Hgb Hct MCV MCH RDW Plt Count Seg Neuts % (Manual) Lymphocytes % (Manual) Seg Neutrophils # Man Lymphocytes # (Manual) PT INR POC ABG pH POC ABG pCO2 POC ABG pO2 Sodium Potassium Chloride 107.2 H Carbon Dioxide 19 L BUN 67 H Creatinine 4.0 H Glucose 150 H POC Glucose 176 H 251 H Lactic Acid Calcium 7.2 L Phosphorus Magnesium Total Bilirubin 5.60 H AST 47 H ALT Alkaline Phosphatase Troponin T C-Reactive Protein Total Protein 4.3 L Albumin 1.9 L Triglycerides LDL Cholesterol Direct HDL Cholesterol Urine WBC (Auto) Urine Creatinine 12/24/17 12/24/17 12/24/17 11:53 17:19 21:16 WBC Hgb Hct MCV MCH RDW Plt Count Seg Neuts % (Manual) Lymphocytes % (Manual) Seg Neutrophils # Man Lymphocytes # (Manual) PT INR POC ABG pH POC ABG pCO2 POC ABG pO2 Sodium Potassium Chloride Carbon Dioxide BUN Creatinine Glucose POC Glucose 274 H 302 H 345 H Lactic Acid Calcium Phosphorus Magnesium Total Bilirubin AST ALT Alkaline Phosphatase Troponin T C-Reactive Protein Total Protein Albumin Triglycerides LDL Cholesterol Direct HDL Cholesterol Urine WBC (Auto) Urine Creatinine 12/25/17 12/25/17 12/25/17 05:55 05:55 05:55 WBC 13.7 H Hgb Hct 30.2 L MCV 75 L MCH 25 L RDW 17.2 H Plt Count 24 L Seg Neuts % (Manual) 85.0 H Lymphocytes % (Manual) 3.0 L Seg Neutrophils # Man 11.6 H Lymphocytes # (Manual) 0.4 L PT INR POC ABG pH POC ABG pCO2 POC ABG pO2 Sodium Potassium 3.5 L Chloride Carbon Dioxide BUN 81 H Creatinine 3.9 H Glucose 471 H POC Glucose Lactic Acid Calcium 7.5 L Phosphorus Magnesium Total Bilirubin 7.70 H AST ALT Alkaline Phosphatase 234 H Troponin T C-Reactive Protein 19.90 H Total Protein 4.9 L Albumin 1.6 L Triglycerides LDL Cholesterol Direct HDL Cholesterol Urine WBC (Auto) Urine Creatinine 12/25/17 12/25/17 12/25/17 08:21 09:41 12:14 WBC Hgb Hct MCV MCH RDW Plt Count Seg Neuts % (Manual) Lymphocytes % (Manual) Seg Neutrophils # Man Lymphocytes # (Manual) PT INR POC ABG pH POC ABG pCO2 POC ABG pO2 Sodium Potassium Chloride Carbon Dioxide BUN Creatinine Glucose POC Glucose 468 H 405 H Lactic Acid 2.10 H* Calcium Phosphorus Magnesium Total Bilirubin AST ALT Alkaline Phosphatase Troponin T C-Reactive Protein Total Protein Albumin Triglycerides LDL Cholesterol Direct HDL Cholesterol Urine WBC (Auto) Urine Creatinine 12/25/17 12/25/17 12/26/17 16:13 21:46 06:54 WBC 16.6 H Hgb 10.0 L Hct 29.3 L MCV 74 L MCH 25 L RDW 16.5 H Plt Count 27 L Seg Neuts % (Manual) Lymphocytes % (Manual) Seg Neutrophils # Man Lymphocytes # (Manual) PT INR POC ABG pH POC ABG pCO2 POC ABG pO2 Sodium Potassium Chloride Carbon Dioxide BUN Creatinine Glucose POC Glucose 264 H 249 H Lactic Acid Calcium Phosphorus Magnesium Total Bilirubin AST ALT Alkaline Phosphatase Troponin T C-Reactive Protein Total Protein Albumin Triglycerides LDL Cholesterol Direct HDL Cholesterol Urine WBC (Auto) Urine Creatinine 12/26/17 12/26/17 06:54 07:57 WBC Hgb Hct MCV MCH RDW Plt Count Seg Neuts % (Manual) Lymphocytes % (Manual) Seg Neutrophils # Man Lymphocytes # (Manual) PT INR POC ABG pH POC ABG pCO2 POC ABG pO2 Sodium Potassium 3.0 L Chloride 97.7 L Carbon Dioxide 32 H BUN 78 H Creatinine 3.8 H Glucose 353 H POC Glucose 384 H Lactic Acid Calcium 7.2 L Phosphorus Magnesium Total Bilirubin 6.00 H AST 50 H ALT Alkaline Phosphatase 265 H Troponin T C-Reactive Protein Total Protein 4.8 L Albumin 1.4 L Triglycerides LDL Cholesterol Direct HDL Cholesterol Urine WBC (Auto) Urine Creatinine
[2017-12-26] MEDS: MORPHINE IV PRN (11:38)
[2017-12-26] MEDS ORDERED: K-DUR PO ONE (13:24)
--- NOTE | 2017-12-26 13:31 | Progress Note ---
Subjective Date of service: 12/26/17 Principal diagnosis: septic shock Interval history: 52-year-old female with a history of hypertension, diabetes admitted to ICU through the emergency room with complaints of fever, nausea vomiting and diarrhea that started yesterday. She's had 4 episodes of diarrhea today, stool is less watery. She also complained of abdominal pain on the left lower quadrant and lower back pain which she describes as sharp pain, intermittent in nature and lasted for a few seconds, intensity 6/10, no radiation, she cannot identify exacerbating or relieving factor. Sons at bedside are translators. The patient took that one dose of antibiotic this morning, she does not know the name of the antibiotic. patient was admitted to the ICU with Septic Shock and placed in the ICU 12/25 patient is lethargic but can be aroused, unable to get any history from the patient, no family member in the room at this time. She has arm restraints All interdisciplinary notes reviewed and appreciated. All lab results reviewed ROS: Unable to obtain secondary to lethargy 12/26 awake, groggy, she is back in restraints as she apparently was trying to pull out the nasogastric tube . Daughter is by the bedside. Answered all her questions. All interdisciplinary notes reviewed. Lab results reviewed Assessment and plan: Septic shock: ID note reviewed and appreciated Continue antibiotics per ID recommendations Neutrophilic leukocytosis: Secondary to sepsis and bacteremia DKA: Improved off insulin drip Blood sugars poorly controlled Adjust basal insulin dose and continue sliding-scale coverage Increase Accu-Cheks to every 4 hours Ecoli Bacterimia: Continue cefepime per ID recommendations Uncontrolled Type 2 DM: Insulin dose adjusted Acute kidney injury: Nephrology following Hypokalemia: Potassium supplements ordered Will monitor lytes Thrombocytopenia: ? 2/2 sepsis, consult hematology if it's not improving DVT prophylaxis: SCDs Objective - Constitutional Vitals: Vital Signs - 12hr 12/26/17 12/26/17 12/26/17 01:31 01:45 02:00 Temperature Pulse Rate 94 H 92 H 87 Pulse Rate [ From Monitor] Respiratory 18 14 15 Rate Blood Pressure 129/83 129/83 127/72 O2 Sat by Pulse 98 97 95 Oximetry 12/26/17 12/26/17 12/26/17 02:15 02:31 02:45 Temperature Pulse Rate 90 90 88 Pulse Rate [ From Monitor] Respiratory 17 15 14 Rate Blood Pressure 129/83 129/83 127/72 O2 Sat by Pulse 99 98 99 Oximetry 12/26/17 12/26/17 12/26/17 03:00 03:15 03:31 Temperature Pulse Rate 88 93 H 91 H Pulse Rate [ From Monitor] Respiratory 19 17 17 Rate Blood Pressure 118/79 118/79 118/79 O2 Sat by Pulse 98 99 98 Oximetry 12/26/17 12/26/17 12/26/17 03:45 04:00 04:01 Temperature 98.4 F Pulse Rate 91 H 91 H Pulse Rate [ 92 H From Monitor] Respiratory 20 20 18 Rate Blood Pressure 118/79 144/77 O2 Sat by Pulse 98 99 97 Oximetry 12/26/17 12/26/17 12/26/17 04:15 04:31 04:45 Temperature Pulse Rate 94 H 91 H 88 Pulse Rate [ From Monitor] Respiratory 18 19 12 Rate Blood Pressure 144/77 144/77 144/77 O2 Sat by Pulse 98 99 98 Oximetry 12/26/17 12/26/17 12/26/17 05:00 05:15 05:31 Temperature Pulse Rate 87 90 96 H Pulse Rate [ From Monitor] Respiratory 13 15 16 Rate Blood Pressure 142/72 142/72 142/72 O2 Sat by Pulse 96 98 97 Oximetry 12/26/17 12/26/17 12/26/17 05:45 06:01 07:01 Temperature Pulse Rate 97 H 100 H 93 H Pulse Rate [ From Monitor] Respiratory 15 18 16 Rate Blood Pressure 142/72 142/72 142/72 O2 Sat by Pulse 97 97 98 Oximetry 12/26/17 12/26/17 12/26/17 08:00 09:01 10:00 Temperature 98.3 F Pulse Rate 96 H 84 Pulse Rate [ 92 H From Monitor] Respiratory 16 16 Rate Blood Pressure 142/72 142/72 O2 Sat by Pulse 96 97 96 Oximetry 12/26/17 12/26/17 12/26/17 10:01 11:01 12:00 Temperature 98.6 F Pulse Rate 67 93 H Pulse Rate [ From Monitor] Respiratory 19 22 Rate Blood Pressure 142/72 145/69 O2 Sat by Pulse 95 95 Oximetry General appearance: Present: no acute distress - EENT Eyes: PERRL, EOM intact ENT: hearing intact - Neck Neck: supple, normal ROM - Respiratory Respiratory effort: normal Respiratory: bilateral: CTA, diminished, negative: rhonchi - Cardiovascular Rhythm: regular Heart Sounds: Present: S1 & S2 Extremities: No edema - Gastrointestinal General gastrointestinal: Present: soft, non-tender - Integumentary Integumentary: clear, no rash - Neurologic Neurologic: moves all extremities - Labs CBC & Chem 7: 12/26/17 06:54 12/26/17 06:54 Labs: Abnormal lab results 12/25/17 12/25/17 12/26/17 Range/Units 16:13 21:46 06:54 WBC 16.6 H (4.5-11.0) K/mm3 Hgb 10.0 L (10.1-14.3) gm/dl Hct 29.3 L (30.3-42.9) % MCV 74 L (79-97) fl MCH 25 L (28-32) pg RDW 16.5 H (13.2-15.2) % Plt Count 27 L (140-440) K/mm3 Potassium (3.6-5.0) mmol/L Chloride (98-107) mmol/L Carbon Dioxide (22-30) mmol/L BUN (7-17) mg/dL Creatinine (0.7-1.2) mg/dL Glucose (65-100) mg/dL POC Glucose 264 H 249 H (70-105) Calcium (8.4-10.2) mg/dL Total Bilirubin (0.1-1.2) mg/dL AST (5-40) units/L Alkaline Phosphatase (35-129) units/L Total Protein (6.3-8.2) g/dL Albumin (3.9-5) g/dL 12/26/17 12/26/17 12/26/17 Range/Units 06:54 07:57 11:36 WBC (4.5-11.0) K/mm3 Hgb (10.1-14.3) gm/dl Hct (30.3-42.9) % MCV (79-97) fl MCH (28-32) pg RDW (13.2-15.2) % Plt Count (140-440) K/mm3 Potassium 3.0 L (3.6-5.0) mmol/L Chloride 97.7 L (98-107) mmol/L Carbon Dioxide 32 H (22-30) mmol/L BUN 78 H (7-17) mg/dL Creatinine 3.8 H (0.7-1.2) mg/dL Glucose 353 H (65-100) mg/dL POC Glucose 384 H 274 H (70-105) Calcium 7.2 L (8.4-10.2) mg/dL Total Bilirubin 6.00 H (0.1-1.2) mg/dL AST 50 H (5-40) units/L Alkaline Phosphatase 265 H (35-129) units/L Total Protein 4.8 L (6.3-8.2) g/dL Albumin 1.4 L (3.9-5) g/dL
[2017-12-26] MEDS: LANTUS SUB-Q SCH (21:44)
[2017-12-27] MEDS: MORPHINE IV PRN (00:14)
[2017-12-27] MEDS: HumuLIN R SUB-Q SCH ×6 (02:24→22:05)
[2017-12-27 07:07] LABS: Hematocrit 29.5 % (30.3-42.9); Hemoglobin 9.7 gm/dl (10.1-14.3); Mean Corpuscular HGB Conc 33 % (30-34); Mean Corpuscular Volume 74 fl (79-97); Red Blood Count 3.99 M/mm3 (3.65-5.03); Red Cell Distribution Width 16.9 % (13.2-15.2)
[2017-12-27 07:09] LABS: Mean Corpuscular Hemoglobin 24 pg (28-32); Platelet Count 43 K/mm3 (140-440)
[2017-12-27 07:29] LABS: Calcium 7.6 mg/dL (8.4-10.2)
--- NOTE | 2017-12-27 08:47 | Progress Note ---
Assessment and Plan 1. Acute kidney injury: Vasomotor / hemodynamic MARLENE in the setting of septic shock. Creatinine level is same as yesterday. Monitor for [employer] needs. Renal prognosis is guarded. 2. Septic shock: E.Coli bacteremia. Off Levophed. On Cefepime. 3. Left hydronephrosis: Acute pyelonephritis. Improving. 4. DKA: Improving. 5. Acute Encephalopathy. 6. Thrombocytopenia. D/w her at the bedside. Subjective Date of service: 12/27/17 Principal diagnosis: septic shock Interval history: Patient was seen and examined at the bedside. Objective - Vital Signs Vital signs: Vital Signs - 12hr 12/26/17 12/26/17 12/26/17 21:01 22:00 23:00 Temperature Pulse Rate 84 90 85 Pulse Rate [ From Monitor] Respiratory 19 18 18 Rate Blood Pressure 146/72 158/75 156/80 O2 Sat by Pulse 93 94 96 Oximetry 12/26/17 12/26/17 12/26/17 23:01 23:02 23:19 Temperature Pulse Rate 85 83 Pulse Rate [ From Monitor] Respiratory 18 16 Rate Blood Pressure 158/75 156/80 O2 Sat by Pulse 98 97 98 Oximetry 12/26/17 12/27/17 12/27/17 23:23 00:00 01:01 Temperature 98.1 F Pulse Rate 85 81 Pulse Rate [ 83 From Monitor] Respiratory 16 15 Rate Blood Pressure 164/77 129/69 O2 Sat by Pulse 96 94 Oximetry 12/27/17 12/27/17 12/27/17 02:00 03:00 03:49 Temperature 98.4 F Pulse Rate 81 79 Pulse Rate [ From Monitor] Respiratory 16 11 L Rate Blood Pressure 142/70 130/67 O2 Sat by Pulse 96 96 Oximetry 12/27/17 12/27/17 12/27/17 04:00 04:05 05:00 Temperature Pulse Rate 84 79 77 Pulse Rate [ 76 From Monitor] Respiratory 16 16 13 Rate Blood Pressure 135/75 135/75 143/71 O2 Sat by Pulse 97 97 95 Oximetry 12/27/17 12/27/17 12/27/17 06:00 07:01 08:00 Temperature 97.4 F L Pulse Rate 79 79 77 Pulse Rate [ 80 From Monitor] Respiratory 12 14 14 Rate Blood Pressure 145/78 145/78 152/74 O2 Sat by Pulse 96 98 96 Oximetry 12/27/17 12/27/17 08:13 08:21 Temperature Pulse Rate 77 Pulse Rate [ From Monitor] Respiratory 17 Rate Blood Pressure 152/74 O2 Sat by Pulse 98 98 Oximetry - General Appearance General appearance: well-developed, appears stated age, other (no distress, NG tube noted) EENT: ATNC, PERRL Neck: supple Respiratory: Present: Clear to Ascultation Cardiology: regular, S1S2, no murmurs Gastrointestinal: normoactive bowel sounds, no tenderness, obese Integumentary: warm and dry Neurologic: other (able to move extremities) Musculoskeletal: other (trace to 1+ edema of all 4 extremities) - Lab 12/27/17 06:40 12/27/17 06:40 Most recent lab results Calcium 7.6 mg/dL (8.4-10.2) L 12/27/17 06:40 Phosphorus 3.60 mg/dL (2.5-4.5) 12/24/17 05:15 Magnesium 2.00 mg/dL (1.7-2.3) 12/24/17 05:15 Urine Creatinine 65.1 mg/dL (0.1-20.0) H 12/23/17 15:13 Urine Sodium 26 mmol/L 12/23/17 15:13
[2017-12-27] MEDS: Centrum Liq PO SCH (10:01)
[2017-12-27] MEDS: FOLVITE PO SCH (10:01)
[2017-12-27] MEDS: VITAMIN B-1 PO SCH (10:03)
[2017-12-27] MEDS: SODIUM CHLORIDE FLUSH SYRINGE 10 ML IV SCH ×2 (10:55→22:07)
[2017-12-27] MEDS: PEPCID IV SCH ×2 (10:55→22:06)
--- NOTE | 2017-12-27 12:06 | Progress Note ---
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 MARLENE Left Hydronephrosis Fatty Liver Abnormal LFTs, mixed picture Skin rash Acute encephalopathy Gastroenteritis, viral Thrombocytopenia -NIPPV for work of breathing and for adjustment of minute ventilation for better acid-base( can discontinue) -vasopressor support if needed to , keep MAP>65 -Give dose of acetazolamide -VTE prophylaxis -Supplemental oxygen to keep O2 sats>90% -Agitation management -Accucheck with glycemic control -Get CT abdomen and pelvis without contrast today Discussed in detail with the and patient at the bedside Subjective Date of service: 12/27/17 Principal diagnosis: septic shock Interval history: Seen and examined. Vitals, labs, medications, chart reviewed. No acute overnight events. Episode of vomiting this morning. Used BIPAP overnight Called by RT with critical value ---metabolic acidosis Objective - Exam Narrative Exam: General appearance: alert in NAD Eyes: anicteric sclerae, moist conjunctivae; no lid-lag; PERRLA HENT: Atraumatic; oropharynx clear, feedig tube in nares Neck: Trachea midline; supple, no thyromegaly or lymphadenopathy Lungs: abeba scattered rhonchi CV: RRR, no murmurs Abdomen: Soft, non-tender , distended, distant BS Extremities: No peripheral edema or extremity lymphadenopathy Skin: Multiple nodular lesions in the arms, legs and abdominal wall, sasha and hyperpigmented Psych: alert talking. Neuro: alert, non focal, obeying simple commands Lines: Vital Signs - 12hr 12/27/17 12/27/17 12/27/17 01:01 02:00 03:00 Temperature Pulse Rate 81 81 79 Pulse Rate [ From Monitor] Respiratory 15 16 11 L Rate Blood Pressure 129/69 142/70 130/67 O2 Sat by Pulse 94 96 96 Oximetry 12/27/17 12/27/17 12/27/17 03:49 04:00 04:05 Temperature 98.4 F Pulse Rate 84 79 Pulse Rate [ 76 From Monitor] Respiratory 16 16 Rate Blood Pressure 135/75 135/75 O2 Sat by Pulse 97 97 Oximetry 12/27/17 12/27/17 12/27/17 05:00 06:00 07:01 Temperature Pulse Rate 77 79 79 Pulse Rate [ From Monitor] Respiratory 13 12 14 Rate Blood Pressure 143/71 145/78 145/78 O2 Sat by Pulse 95 96 98 Oximetry 12/27/17 12/27/17 12/27/17 08:00 08:13 08:21 Temperature 97.4 F L Pulse Rate 77 77 Pulse Rate [ 80 From Monitor] Respiratory 14 17 Rate Blood Pressure 152/74 152/74 O2 Sat by Pulse 96 98 98 Oximetry 12/27/17 12/27/17 12/27/17 09:00 10:00 11:01 Temperature Pulse Rate 89 85 83 Pulse Rate [ From Monitor] Respiratory 14 18 23 Rate Blood Pressure 136/73 134/80 127/74 O2 Sat by Pulse 95 96 96 Oximetry CBC and BMP: 12/27/17 06:40 12/27/17 06:40 ABG, PT/INR, D-dimer: ABG POC ABG pH 7.599 (7.35-7.45) H 12/27/17 04:07 POC ABG pCO2 42.4 (35-45) 12/27/17 04:07 POC ABG pO2 108 (80-105) H 12/27/17 04:07 POC ABG HCO3 41.6 12/27/17 04:07 POC ABG Total CO2 43 12/27/17 04:07 POC ABG O2 Sat 99 12/27/17 04:07 PT/INR, D-dimer PT 18.5 Sec. (12.2-14.9) H 12/20/17 23:35 INR 1.45 (0.87-1.13) H 12/20/17 23:35 Abnormal lab findings: Abnormal Labs 12/20/17 12/20/17 12/20/17 23:35 23:35 23:35 WBC Hgb Hct MCV 78 L MCH 26 L RDW 15.7 H Plt Count 77 L Seg Neuts % (Manual) 76.0 H Lymphocytes % (Manual) 6.0 L Seg Neutrophils # Man 8.2 H Lymphocytes # (Manual) 0.6 L PT 18.5 H INR 1.45 H POC ABG pH POC ABG pCO2 POC ABG pO2 Sodium 130 L Potassium 3.5 L Chloride 92.3 L Carbon Dioxide 17 L BUN 27 H Creatinine 2.2 H Glucose 535 H* POC Glucose Lactic Acid Calcium 7.0 L Phosphorus Magnesium Total Bilirubin AST ALT Alkaline Phosphatase 173 H Troponin T C-Reactive Protein Total Protein 5.1 L Albumin 2.6 L Triglycerides LDL Cholesterol Direct HDL Cholesterol Urine WBC (Auto) Urine Creatinine 12/20/17 12/21/17 12/21/17 23:35 01:11 01:11 WBC Hgb Hct MCV MCH RDW Plt Count Seg Neuts % (Manual) Lymphocytes % (Manual) Seg Neutrophils # Man Lymphocytes # (Manual) PT INR POC ABG pH POC ABG pCO2 POC ABG pO2 Sodium Potassium Chloride Carbon Dioxide BUN Creatinine Glucose POC Glucose Lactic Acid 8.30 H* 8.10 H* Calcium Phosphorus 1.90 L Magnesium 1.30 L Total Bilirubin AST ALT Alkaline Phosphatase Troponin T C-Reactive Protein Total Protein Albumin Triglycerides LDL Cholesterol Direct HDL Cholesterol Urine WBC (Auto) Urine Creatinine 12/21/17 12/21/17 12/21/17 01:11 01:50 02:09 WBC Hgb Hct MCV MCH RDW Plt Count Seg Neuts % (Manual) Lymphocytes % (Manual) Seg Neutrophils # Man Lymphocytes # (Manual) PT INR POC ABG pH POC ABG pCO2 POC ABG pO2 Sodium 133 L Potassium 3.3 L Chloride 97.9 L Carbon Dioxide 15 L BUN 26 H Creatinine 2.1 H Glucose 504 H* POC Glucose 391 H Lactic Acid Calcium 6.4 L Phosphorus Magnesium Total Bilirubin AST ALT Alkaline Phosphatase Troponin T C-Reactive Protein Total Protein Albumin Triglycerides LDL Cholesterol Direct HDL Cholesterol Urine WBC (Auto) 38.0 H Urine Creatinine 12/21/17 12/21/17 12/21/17 03:10 03:26 05:15 WBC Hgb Hct MCV MCH RDW Plt Count Seg Neuts % (Manual) Lymphocytes % (Manual) Seg Neutrophils # Man Lymphocytes # (Manual) PT INR POC ABG pH POC ABG pCO2 POC ABG pO2 Sodium 135 L Potassium 3.3 L Chloride Carbon Dioxide 14 L BUN 25 H Creatinine 1.9 H Glucose 443 H POC Glucose 389 H 407 H Lactic Acid Calcium 6.0 L Phosphorus Magnesium Total Bilirubin AST ALT Alkaline Phosphatase Troponin T C-Reactive Protein Total Protein Albumin Triglycerides LDL Cholesterol Direct HDL Cholesterol Urine WBC (Auto) Urine Creatinine 12/21/17 12/21/17 12/21/17 06:00 06:00 06:09 WBC Hgb Hct MCV MCH RDW Plt Count Seg Neuts % (Manual) Lymphocytes % (Manual) Seg Neutrophils # Man Lymphocytes # (Manual) PT INR POC ABG pH POC ABG pCO2 POC ABG pO2 Sodium Potassium 3.4 L Chloride Carbon Dioxide 12 L BUN 28 H Creatinine 1.9 H Glucose 283 H POC Glucose 326 H Lactic Acid 7.90 H* Calcium 6.0 L Phosphorus Magnesium Total Bilirubin AST ALT Alkaline Phosphatase Troponin T C-Reactive Protein Total Protein Albumin Triglycerides LDL Cholesterol Direct HDL Cholesterol Urine WBC (Auto) Urine Creatinine 12/21/17 12/21/17 12/21/17 07:23 08:16 08:44 WBC Hgb Hct MCV MCH RDW Plt Count Seg Neuts % (Manual) Lymphocytes % (Manual) Seg Neutrophils # Man Lymphocytes # (Manual) PT INR POC ABG pH POC ABG pCO2 POC ABG pO2 Sodium Potassium 3.3 L Chloride 107.8 H Carbon Dioxide 14 L BUN 29 H Creatinine 2.0 H Glucose 140 H POC Glucose 267 H 257 H Lactic Acid Calcium 6.2 L Phosphorus Magnesium Total Bilirubin AST ALT Alkaline Phosphatase Troponin T C-Reactive Protein Total Protein Albumin Triglycerides LDL Cholesterol Direct HDL Cholesterol Urine WBC (Auto) Urine Creatinine 12/21/17 12/21/17 12/21/17 08:44 08:44 09:02 WBC Hgb Hct MCV MCH RDW Plt Count Seg Neuts % (Manual) Lymphocytes % (Manual) Seg Neutrophils # Man Lymphocytes # (Manual) PT INR POC ABG pH POC ABG pCO2 POC ABG pO2 Sodium Potassium Chloride Carbon Dioxide BUN Creatinine Glucose POC Glucose 211 H Lactic Acid 6.40 H* Calcium Phosphorus Magnesium Total Bilirubin AST ALT Alkaline Phosphatase Troponin T C-Reactive Protein 27.10 H Total Protein Albumin Triglycerides LDL Cholesterol Direct HDL Cholesterol Urine WBC (Auto) Urine Creatinine 12/21/17 12/21/17 12/21/17 09:35 10:27 11:57 WBC Hgb Hct MCV MCH RDW Plt Count Seg Neuts % (Manual) Lymphocytes % (Manual) Seg Neutrophils # Man Lymphocytes # (Manual) PT INR POC ABG pH POC ABG pCO2 POC ABG pO2 Sodium Potassium Chloride Carbon Dioxide BUN Creatinine Glucose POC Glucose 182 H 142 H 134 H Lactic Acid Calcium Phosphorus Magnesium Total Bilirubin AST ALT Alkaline Phosphatase Troponin T C-Reactive Protein Total Protein Albumin Triglycerides LDL Cholesterol Direct HDL Cholesterol Urine WBC (Auto) Urine Creatinine 12/21/17 12/21/17 12/21/17 13:27 15:20 17:39 WBC Hgb Hct MCV MCH RDW Plt Count Seg Neuts % (Manual) Lymphocytes % (Manual) Seg Neutrophils # Man Lymphocytes # (Manual) PT INR POC ABG pH POC ABG pCO2 POC ABG pO2 Sodium Potassium Chloride Carbon Dioxide BUN Creatinine Glucose POC Glucose 161 H 189 H Lactic Acid Calcium Phosphorus Magnesium Total Bilirubin AST ALT Alkaline Phosphatase Troponin T 0.087 H C-Reactive Protein Total Protein Albumin Triglycerides 202 H LDL Cholesterol Direct 6 L HDL Cholesterol 10 L Urine WBC (Auto) Urine Creatinine 12/21/17 12/21/17 12/21/17 17:47 19:32 20:56 WBC Hgb Hct MCV MCH RDW Plt Count Seg Neuts % (Manual) Lymphocytes % (Manual) Seg Neutrophils # Man Lymphocytes # (Manual) PT INR POC ABG pH POC ABG pCO2 POC ABG pO2 Sodium Potassium Chloride 107.2 H Carbon Dioxide 14 L BUN 32 H Creatinine 2.4 H Glucose 171 H POC Glucose 160 H 136 H Lactic Acid Calcium 6.6 L Phosphorus Magnesium Total Bilirubin AST ALT Alkaline Phosphatase Troponin T C-Reactive Protein Total Protein Albumin Triglycerides LDL Cholesterol Direct HDL Cholesterol Urine WBC (Auto) Urine Creatinine 12/21/17 12/22/17 12/22/17 21:12 00:29 03:08 WBC Hgb Hct MCV MCH RDW Plt Count Seg Neuts % (Manual) Lymphocytes % (Manual) Seg Neutrophils # Man Lymphocytes # (Manual) PT INR POC ABG pH 7.152 L 7.241 L POC ABG pCO2 28.1 L POC ABG pO2 62 L 113 H Sodium Potassium Chloride Carbon Dioxide BUN Creatinine Glucose POC Glucose 109 H Lactic Acid Calcium Phosphorus Magnesium Total Bilirubin AST ALT Alkaline Phosphatase Troponin T C-Reactive Protein Total Protein Albumin Triglycerides LDL Cholesterol Direct HDL Cholesterol Urine WBC (Auto) Urine Creatinine 12/22/17 12/22/17 12/22/17 04:29 04:30 04:30 WBC 21.9 H Hgb Hct MCV 77 L MCH 25 L RDW 16.6 H Plt Count 57 L Seg Neuts % (Manual) Lymphocytes % (Manual) Seg Neutrophils # Man Lymphocytes # (Manual) PT INR POC ABG pH POC ABG pCO2 POC ABG pO2 Sodium Potassium Chloride Carbon Dioxide 14 L BUN 37 H Creatinine 2.7 H Glucose 145 H POC Glucose 139 H Lactic Acid Calcium 6.4 L Phosphorus Magnesium Total Bilirubin AST ALT Alkaline Phosphatase Troponin T C-Reactive Protein Total Protein Albumin Triglycerides LDL Cholesterol Direct HDL Cholesterol Urine WBC (Auto) Urine Creatinine 12/22/17 12/22/17 12/22/17 04:30 05:24 05:54 WBC Hgb Hct MCV MCH RDW Plt Count Seg Neuts % (Manual) Lymphocytes % (Manual) Seg Neutrophils # Man Lymphocytes # (Manual) PT INR POC ABG pH POC ABG pCO2 POC ABG pO2 Sodium Potassium Chloride Carbon Dioxide BUN Creatinine Glucose POC Glucose 144 H 145 H Lactic Acid 3.30 H* Calcium Phosphorus Magnesium Total Bilirubin AST ALT Alkaline Phosphatase Troponin T C-Reactive Protein Total Protein Albumin Triglycerides LDL Cholesterol Direct HDL Cholesterol Urine WBC (Auto) Urine Creatinine 12/22/17 12/22/17 12/22/17 07:56 07:56 10:09 WBC Hgb Hct MCV MCH RDW Plt Count Seg Neuts % (Manual) Lymphocytes % (Manual) Seg Neutrophils # Man Lymphocytes # (Manual) PT INR POC ABG pH 7.180 L POC ABG pCO2 POC ABG pO2 117 H Sodium Potassium Chloride Carbon Dioxide 14 L BUN 39 H Creatinine 2.9 H Glucose 174 H POC Glucose Lactic Acid 3.00 H* Calcium 6.7 L Phosphorus Magnesium Total Bilirubin AST ALT Alkaline Phosphatase Troponin T C-Reactive Protein Total Protein Albumin Triglycerides LDL Cholesterol Direct HDL Cholesterol Urine WBC (Auto) Urine Creatinine 12/22/17 12/22/17 12/22/17 10:12 12:19 14:23 WBC Hgb Hct MCV MCH RDW Plt Count Seg Neuts % (Manual) Lymphocytes % (Manual) Seg Neutrophils # Man Lymphocytes # (Manual) PT INR POC ABG pH 7.241 L 7.285 L POC ABG pCO2 33.9 L 29.9 L POC ABG pO2 45 L 117 H Sodium Potassium Chloride Carbon Dioxide BUN Creatinine Glucose POC Glucose 185 H Lactic Acid Calcium Phosphorus Magnesium Total Bilirubin AST ALT Alkaline Phosphatase Troponin T C-Reactive Protein Total Protein Albumin Triglycerides LDL Cholesterol Direct HDL Cholesterol Urine WBC (Auto) Urine Creatinine 12/22/17 12/22/17 12/22/17 14:27 17:22 19:58 WBC Hgb Hct MCV MCH RDW Plt Count Seg Neuts % (Manual) Lymphocytes % (Manual) Seg Neutrophils # Man Lymphocytes # (Manual) PT INR POC ABG pH 7.338 L POC ABG pCO2 27.6 L POC ABG pO2 167 H Sodium Potassium Chloride Carbon Dioxide BUN Creatinine Glucose POC Glucose 220 H 197 H Lactic Acid Calcium Phosphorus Magnesium Total Bilirubin AST ALT Alkaline Phosphatase Troponin T C-Reactive Protein Total Protein Albumin Triglycerides LDL Cholesterol Direct HDL Cholesterol Urine WBC (Auto) Urine Creatinine 12/22/17 12/23/17 12/23/17 21:18 05:30 05:30 WBC 14.5 H Hgb Hct MCV 75 L MCH 26 L RDW 16.7 H Plt Count 26 L Seg Neuts % (Manual) Lymphocytes % (Manual) Seg Neutrophils # Man Lymphocytes # (Manual) PT INR POC ABG pH POC ABG pCO2 POC ABG pO2 Sodium Potassium Chloride Carbon Dioxide 15 L BUN 49 H Creatinine 3.5 H Glucose 123 H POC Glucose 189 H Lactic Acid Calcium 6.7 L Phosphorus Magnesium Total Bilirubin 3.60 H AST 93 H ALT 58 H Alkaline Phosphatase Troponin T C-Reactive Protein Total Protein 4.5 L Albumin 2.0 L Triglycerides LDL Cholesterol Direct HDL Cholesterol Urine WBC (Auto) Urine Creatinine 12/23/17 12/23/17 12/23/17 05:30 12:31 15:13 WBC Hgb Hct MCV MCH RDW Plt Count Seg Neuts % (Manual) Lymphocytes % (Manual) Seg Neutrophils # Man Lymphocytes # (Manual) PT INR POC ABG pH POC ABG pCO2 POC ABG pO2 Sodium Potassium Chloride Carbon Dioxide BUN Creatinine Glucose POC Glucose 141 H Lactic Acid Calcium Phosphorus Magnesium Total Bilirubin AST ALT Alkaline Phosphatase Troponin T C-Reactive Protein 38.70 H Total Protein Albumin Triglycerides LDL Cholesterol Direct HDL Cholesterol Urine WBC (Auto) Urine Creatinine 65.1 H 12/23/17 12/24/17 12/24/17 18:53 00:13 05:15 WBC 14.7 H Hgb Hct MCV 76 L MCH 25 L RDW 16.6 H Plt Count 20 L Seg Neuts % (Manual) Lymphocytes % (Manual) Seg Neutrophils # Man Lymphocytes # (Manual) PT INR POC ABG pH POC ABG pCO2 POC ABG pO2 Sodium Potassium Chloride Carbon Dioxide BUN Creatinine Glucose POC Glucose 205 H 207 H Lactic Acid Calcium Phosphorus Magnesium Total Bilirubin AST ALT Alkaline Phosphatase Troponin T C-Reactive Protein Total Protein Albumin Triglycerides LDL Cholesterol Direct HDL Cholesterol Urine WBC (Auto) Urine Creatinine 12/24/17 12/24/17 12/24/17 05:15 05:51 08:31 WBC Hgb Hct MCV MCH RDW Plt Count Seg Neuts % (Manual) Lymphocytes % (Manual) Seg Neutrophils # Man Lymphocytes # (Manual) PT INR POC ABG pH POC ABG pCO2 POC ABG pO2 Sodium Potassium Chloride 107.2 H Carbon Dioxide 19 L BUN 67 H Creatinine 4.0 H Glucose 150 H POC Glucose 176 H 251 H Lactic Acid Calcium 7.2 L Phosphorus Magnesium Total Bilirubin 5.60 H AST 47 H ALT Alkaline Phosphatase Troponin T C-Reactive Protein Total Protein 4.3 L Albumin 1.9 L Triglycerides LDL Cholesterol Direct HDL Cholesterol Urine WBC (Auto) Urine Creatinine 12/24/17 12/24/17 12/24/17 11:53 17:19 21:16 WBC Hgb Hct MCV MCH RDW Plt Count Seg Neuts % (Manual) Lymphocytes % (Manual) Seg Neutrophils # Man Lymphocytes # (Manual) PT INR POC ABG pH POC ABG pCO2 POC ABG pO2 Sodium Potassium Chloride Carbon Dioxide BUN Creatinine Glucose POC Glucose 274 H 302 H 345 H Lactic Acid Calcium Phosphorus Magnesium Total Bilirubin AST ALT Alkaline Phosphatase Troponin T C-Reactive Protein Total Protein Albumin Triglycerides LDL Cholesterol Direct HDL Cholesterol Urine WBC (Auto) Urine Creatinine 12/25/17 12/25/17 12/25/17 05:55 05:55 05:55 WBC 13.7 H Hgb Hct 30.2 L MCV 75 L MCH 25 L RDW 17.2 H Plt Count 24 L Seg Neuts % (Manual) 85.0 H Lymphocytes % (Manual) 3.0 L Seg Neutrophils # Man 11.6 H Lymphocytes # (Manual) 0.4 L PT INR POC ABG pH POC ABG pCO2 POC ABG pO2 Sodium Potassium 3.5 L Chloride Carbon Dioxide BUN 81 H Creatinine 3.9 H Glucose 471 H POC Glucose Lactic Acid Calcium 7.5 L Phosphorus Magnesium Total Bilirubin 7.70 H AST ALT Alkaline Phosphatase 234 H Troponin T C-Reactive Protein 19.90 H Total Protein 4.9 L Albumin 1.6 L Triglycerides LDL Cholesterol Direct HDL Cholesterol Urine WBC (Auto) Urine Creatinine 12/25/17 12/25/17 12/25/17 08:21 09:41 12:14 WBC Hgb Hct MCV MCH RDW Plt Count Seg Neuts % (Manual) Lymphocytes % (Manual) Seg Neutrophils # Man Lymphocytes # (Manual) PT INR POC ABG pH POC ABG pCO2 POC ABG pO2 Sodium Potassium Chloride Carbon Dioxide BUN Creatinine Glucose POC Glucose 468 H 405 H Lactic Acid 2.10 H* Calcium Phosphorus Magnesium Total Bilirubin AST ALT Alkaline Phosphatase Troponin T C-Reactive Protein Total Protein Albumin Triglycerides LDL Cholesterol Direct HDL Cholesterol Urine WBC (Auto) Urine Creatinine 12/25/17 12/25/17 12/26/17 16:13 21:46 06:54 WBC 16.6 H Hgb 10.0 L Hct 29.3 L MCV 74 L MCH 25 L RDW 16.5 H Plt Count 27 L Seg Neuts % (Manual) Lymphocytes % (Manual) Seg Neutrophils # Man Lymphocytes # (Manual) PT INR POC ABG pH POC ABG pCO2 POC ABG pO2 Sodium Potassium Chloride Carbon Dioxide BUN Creatinine Glucose POC Glucose 264 H 249 H Lactic Acid Calcium Phosphorus Magnesium Total Bilirubin AST ALT Alkaline Phosphatase Troponin T C-Reactive Protein Total Protein Albumin Triglycerides LDL Cholesterol Direct HDL Cholesterol Urine WBC (Auto) Urine Creatinine 12/26/17 12/26/17 12/26/17 06:54 07:57 11:36 WBC Hgb Hct MCV MCH RDW Plt Count Seg Neuts % (Manual) Lymphocytes % (Manual) Seg Neutrophils # Man Lymphocytes # (Manual) PT INR POC ABG pH POC ABG pCO2 POC ABG pO2 Sodium Potassium 3.0 L Chloride 97.7 L Carbon Dioxide 32 H BUN 78 H Creatinine 3.8 H Glucose 353 H POC Glucose 384 H 274 H Lactic Acid Calcium 7.2 L Phosphorus Magnesium Total Bilirubin 6.00 H AST 50 H ALT Alkaline Phosphatase 265 H Troponin T C-Reactive Protein Total Protein 4.8 L Albumin 1.4 L Triglycerides LDL Cholesterol Direct HDL Cholesterol Urine WBC (Auto) Urine Creatinine 12/26/17 12/26/17 12/27/17 18:33 21:21 02:04 WBC Hgb Hct MCV MCH RDW Plt Count Seg Neuts % (Manual) Lymphocytes % (Manual) Seg Neutrophils # Man Lymphocytes # (Manual) PT INR POC ABG pH POC ABG pCO2 POC ABG pO2 Sodium Potassium Chloride Carbon Dioxide BUN Creatinine Glucose POC Glucose 198 H 182 H 200 H Lactic Acid Calcium Phosphorus Magnesium Total Bilirubin AST ALT Alkaline Phosphatase Troponin T C-Reactive Protein Total Protein Albumin Triglycerides LDL Cholesterol Direct HDL Cholesterol Urine WBC (Auto) Urine Creatinine 12/27/17 12/27/17 12/27/17 04:07 05:24 06:40 WBC 16.8 H Hgb 9.7 L Hct 29.5 L MCV 74 L MCH 24 L RDW 16.9 H Plt Count 43 L Seg Neuts % (Manual) Lymphocytes % (Manual) Seg Neutrophils # Man Lymphocytes # (Manual) PT INR POC ABG pH 7.599 H POC ABG pCO2 POC ABG pO2 108 H Sodium Potassium Chloride Carbon Dioxide BUN Creatinine Glucose POC Glucose 156 H Lactic Acid Calcium Phosphorus Magnesium Total Bilirubin AST ALT Alkaline Phosphatase Troponin T C-Reactive Protein Total Protein Albumin Triglycerides LDL Cholesterol Direct HDL Cholesterol Urine WBC (Auto) Urine Creatinine 12/27/17 06:40 WBC Hgb Hct MCV MCH RDW Plt Count Seg Neuts % (Manual) Lymphocytes % (Manual) Seg Neutrophils # Man Lymphocytes # (Manual) PT INR POC ABG pH POC ABG pCO2 POC ABG pO2 Sodium Potassium 3.5 L Chloride Carbon Dioxide 36 H BUN 81 H Creatinine 3.8 H Glucose 153 H POC Glucose Lactic Acid Calcium 7.6 L Phosphorus Magnesium Total Bilirubin AST ALT Alkaline Phosphatase Troponin T C-Reactive Protein Total Protein Albumin Triglycerides LDL Cholesterol Direct HDL Cholesterol Urine WBC (Auto) Urine Creatinine
[2017-12-27] MEDS: MAXIPIME 2 GM in NACL 0.9% 20 ML IV SCH (12:18)
[2017-12-27] MEDS: ZOFRAN IV PRN (12:54)
[2017-12-27] MEDS ORDERED: POTASSIUM CHLORIDE FEEDTUBE ONE (13:00)
[2017-12-27] MEDS ORDERED: DIAMOX IV ONE (13:00)
--- NOTE | 2017-12-27 14:04 | Progress Note ---
Subjective Date of service: 12/27/17 Principal diagnosis: septic shock Interval history: HPI: 52-year-old female with a history of hypertension, diabetes admitted to ICU through the emergency room with complaints of fever, nausea vomiting and diarrhea that started yesterday. She's had 4 episodes of diarrhea today, stool is less watery. She also complained of abdominal pain on the left lower quadrant and lower back pain which she describes as sharp pain, intermittent in nature and lasted for a few seconds, intensity 6/10, no radiation, she cannot identify exacerbating or relieving factor. Sons at bedside are translators. The patient took that one dose of antibiotic this morning, she does not know the name of the antibiotic. patient was admitted to the ICU with Septic Shock and placed in the ICU 12/25 patient is lethargic but can be aroused, unable to get any history from the patient, no family member in the room at this time. She has arm restraints All interdisciplinary notes reviewed and appreciated. All lab results reviewed ROS: Unable to obtain secondary to lethargy 12/26 awake, groggy, she is back in restraints as she apparently was trying to pull out the nasogastric tube . Daughter is by the bedside. Answered all her questions. All interdisciplinary notes reviewed. Lab results reviewed 12/27 alert and awake, family in the room, no specific complaints, all interdisciplinary notes and lab results reviewed 11 point review of systems is unremarkable Assessment and plan: Septic shock: ID note reviewed and appreciated Continue antibiotics per ID recommendations Neutrophilic leukocytosis: Secondary to sepsis and bacteremia DKA: Improved off insulin drip Blood sugars poorly controlled Adjust basal insulin dose and continue sliding-scale coverage Increase Accu-Cheks to every 4 hours Ecoli Bacterimia: Continue cefepime per ID recommendations Uncontrolled Type 2 DM: Insulin dose adjusted Acute kidney injury: Nephrology following Hypokalemia: Potassium supplements ordered Will monitor lytes Thrombocytopenia: ? 2/2 sepsis, improving, 27 > 46 today DVT prophylaxis: SCDs Objective - Constitutional Vitals: Vital Signs - 12hr 12/27/17 12/27/17 12/27/17 03:00 03:49 04:00 Temperature 98.4 F Pulse Rate 79 84 Pulse Rate [ 76 From Monitor] Respiratory 11 L 16 Rate Blood Pressure 130/67 135/75 O2 Sat by Pulse 96 97 Oximetry 12/27/17 12/27/17 12/27/17 04:05 05:00 06:00 Temperature Pulse Rate 79 77 79 Pulse Rate [ From Monitor] Respiratory 16 13 12 Rate Blood Pressure 135/75 143/71 145/78 O2 Sat by Pulse 97 95 96 Oximetry 12/27/17 12/27/17 12/27/17 07:01 08:00 08:13 Temperature 97.4 F L Pulse Rate 79 77 77 Pulse Rate [ 80 From Monitor] Respiratory 14 14 17 Rate Blood Pressure 145/78 152/74 152/74 O2 Sat by Pulse 98 96 98 Oximetry 12/27/17 12/27/17 12/27/17 08:21 09:00 10:00 Temperature Pulse Rate 89 85 Pulse Rate [ From Monitor] Respiratory 14 18 Rate Blood Pressure 136/73 134/80 O2 Sat by Pulse 98 95 96 Oximetry 12/27/17 12/27/17 12/27/17 11:01 12:00 12:01 Temperature 97.1 F L Pulse Rate 83 87 Pulse Rate [ 92 H From Monitor] Respiratory 23 20 12 Rate Blood Pressure 127/74 133/65 O2 Sat by Pulse 96 35 L 96 Oximetry 12/27/17 13:01 Temperature Pulse Rate 101 H Pulse Rate [ From Monitor] Respiratory 26 H Rate Blood Pressure 129/75 O2 Sat by Pulse 93 Oximetry General appearance: Present: no acute distress - EENT Eyes: PERRL, EOM intact ENT: hearing intact, clear oral mucosa - Neck Neck: supple, normal ROM - Respiratory Respiratory: bilateral: CTA, diminished - Cardiovascular Rhythm: regular Heart Sounds: Present: S1 & S2 Extremity abnormal: edema (trace all extremity edema) - Gastrointestinal General gastrointestinal: Present: soft - Integumentary Integumentary: clear - Neurologic Neurologic: no focal deficits, moves all extremities - Psychiatric Psychiatric: appropriate mood/affect - Labs CBC & Chem 7: 12/27/17 06:40 12/27/17 06:40 Labs: Abnormal lab results 12/26/17 12/26/17 12/27/17 Range/Units 18:33 21:21 02:04 WBC (4.5-11.0) K/mm3 Hgb (10.1-14.3) gm/dl Hct (30.3-42.9) % MCV (79-97) fl MCH (28-32) pg RDW (13.2-15.2) % Plt Count (140-440) K/mm3 POC ABG pH (7.35-7.45) POC ABG pO2 (80-105) Potassium (3.6-5.0) mmol/L Carbon Dioxide (22-30) mmol/L BUN (7-17) mg/dL Creatinine (0.7-1.2) mg/dL Glucose (65-100) mg/dL POC Glucose 198 H 182 H 200 H (70-105) Calcium (8.4-10.2) mg/dL 12/27/17 12/27/17 12/27/17 Range/Units 04:07 05:24 06:40 WBC 16.8 H (4.5-11.0) K/mm3 Hgb 9.7 L (10.1-14.3) gm/dl Hct 29.5 L (30.3-42.9) % MCV 74 L (79-97) fl MCH 24 L (28-32) pg RDW 16.9 H (13.2-15.2) % Plt Count 43 L (140-440) K/mm3 POC ABG pH 7.599 H (7.35-7.45) POC ABG pO2 108 H (80-105) Potassium (3.6-5.0) mmol/L Carbon Dioxide (22-30) mmol/L BUN (7-17) mg/dL Creatinine (0.7-1.2) mg/dL Glucose (65-100) mg/dL POC Glucose 156 H (70-105) Calcium (8.4-10.2) mg/dL 12/27/17 12/27/17 Range/Units 06:40 11:03 WBC (4.5-11.0) K/mm3 Hgb (10.1-14.3) gm/dl Hct (30.3-42.9) % MCV (79-97) fl MCH (28-32) pg RDW (13.2-15.2) % Plt Count (140-440) K/mm3 POC ABG pH (7.35-7.45) POC ABG pO2 (80-105) Potassium 3.5 L (3.6-5.0) mmol/L Carbon Dioxide 36 H (22-30) mmol/L BUN 81 H (7-17) mg/dL Creatinine 3.8 H (0.7-1.2) mg/dL Glucose 153 H (65-100) mg/dL POC Glucose 220 H (70-105) Calcium 7.6 L (8.4-10.2) mg/dL
--- NOTE | 2017-12-27 15:50 | Cat Scan Report ---
FINAL REPORT EXAM: CT ABDOMEN PELVIS WO CON HISTORY: Vomiting TECHNIQUE: CT abdomen and pelvis performed. Images extend from diaphragm to pubic symphysis. No intravenous contrast was administered. Oral contrast was administered. Axial images and coronal and sagittal reformatted images were obtained. PRIORS: 12/21/2017 FINDINGS: There worsened bilateral pleural effusions now moderate in size. There is also a worsened airspace disease in visualized lower lungs. There is atrophy its mild ascites. There is some generalized edema. Within the limitations of a non-enhanced study, the visualized liver, spleen, pancreas, adrenal glands and kidneys demonstrate no significant abnormalities. There is no abdominal aortic aneurysm. There is no evidence of intestinal obstruction. There is abnormal wall thickening involving nearly entire colon, sparing the distal sigmoid and rectum. Findings could represent colitis. The appendix is normal. There is no free intraperitoneal air. There is a nonspecific borderline lymph node in the right groin although slightly smaller as compared to the previous. The bladder is unremarkable. There is a Vizcaino catheter in the bladder. Impression: Worsened bilateral pleural effusions now moderate. Worsened bilateral lower lung airspace disease/consolidation. Mild ascites and generalized edema, worsened from the previous. Findings are concerning for colitis involving colon from cecum to mid sigmoid. Borderline enlarged right groin lymph node is minimally smaller as compared to prior.
[2017-12-27] MEDS: LANTUS SUB-Q SCH (22:06)
[2017-12-28] MEDS: HumuLIN R SUB-Q SCH ×6 (05:41→23:17)
[2017-12-28 05:56] LABS: Calcium 7.6 mg/dL (8.4-10.2)
--- NOTE | 2017-12-28 08:00 | Progress Note ---
Assessment and Plan 1. Acute kidney injury: Vasomotor / hemodynamic MARLENE in the setting of septic shock. Renal function levelled off. Monitor for [employer] needs. Renal prognosis is guarded. 2. Septic shock: E.Coli bacteremia. Off Levophed. 3. Left hydronephrosis: Acute pyelonephritis. Improving. 4. DKA: Improving. 5. Acute Encephalopathy. 6. Thrombocytopenia. D/w her at the bedside. Subjective Date of service: 12/28/17 Principal diagnosis: septic shock Interval history: Patient was seen and examined at the bedside. Objective - Vital Signs Vital signs: Vital Signs - 12hr 12/27/17 12/27/17 12/27/17 20:01 20:03 21:01 Temperature Pulse Rate 83 86 Pulse Rate [ From Monitor] Respiratory 22 13 Rate Blood Pressure 131/65 131/65 O2 Sat by Pulse 97 97 99 Oximetry 12/27/17 12/27/17 12/27/17 21:29 22:00 23:01 Temperature Pulse Rate 83 81 81 Pulse Rate [ From Monitor] Respiratory 15 11 L 12 Rate Blood Pressure 126/73 121/62 121/62 O2 Sat by Pulse 98 98 99 Oximetry 12/27/17 12/28/17 12/28/17 23:18 00:00 00:01 Temperature 98.5 F Pulse Rate 82 Pulse Rate [ 85 From Monitor] Respiratory 19 Rate Blood Pressure 153/73 O2 Sat by Pulse 35 L 96 Oximetry 12/28/17 12/28/17 12/28/17 01:00 02:00 03:00 Temperature Pulse Rate 82 83 79 Pulse Rate [ From Monitor] Respiratory 17 13 11 L Rate Blood Pressure 153/73 135/66 135/66 O2 Sat by Pulse 98 96 99 Oximetry 12/28/17 12/28/17 12/28/17 03:06 04:00 05:00 Temperature 98.5 F Pulse Rate 86 88 Pulse Rate [ 89 From Monitor] Respiratory 21 17 Rate Blood Pressure 150/66 150/66 O2 Sat by Pulse 95 98 Oximetry 12/28/17 12/28/17 06:00 07:00 Temperature Pulse Rate 83 79 Pulse Rate [ From Monitor] Respiratory 12 12 Rate Blood Pressure 153/66 153/66 O2 Sat by Pulse 97 97 Oximetry - General Appearance General appearance: well-developed, appears stated age, other (no distress) EENT: ATNC, PERRL Neck: supple Respiratory: Present: Clear to Ascultation Cardiology: regular, S1S2, no murmurs Gastrointestinal: normoactive bowel sounds, no tenderness Integumentary: warm and dry Neurologic: confused (per ), other (able to move extremities) Musculoskeletal: other (no edema) - Lab 12/27/17 06:40 12/28/17 05:00 Most recent lab results Calcium 7.6 mg/dL (8.4-10.2) L 12/28/17 05:00 Phosphorus 3.60 mg/dL (2.5-4.5) 12/24/17 05:15 Magnesium 2.00 mg/dL (1.7-2.3) 12/24/17 05:15 Urine Creatinine 65.1 mg/dL (0.1-20.0) H 12/23/17 15:13 Urine Sodium 26 mmol/L 12/23/17 15:13
[2017-12-28] MEDS: FOLVITE PO SCH (09:45)
[2017-12-28] MEDS: Centrum Liq PO SCH (09:45)
[2017-12-28] MEDS: VITAMIN B-1 PO SCH (09:45)
[2017-12-28] MEDS: PEPCID IV SCH ×2 (10:11→23:19)
[2017-12-28] MEDS: MAXIPIME 2 GM in NACL 0.9% 20 ML IV SCH (10:13)
[2017-12-28] MEDS: SODIUM CHLORIDE FLUSH SYRINGE 10 ML IV SCH (10:14)
--- NOTE | 2017-12-28 10:28 | Progress Note ---
Assessment and Plan Severe sepsis with Septic shock, off vasopressor support Acute respiratory failure Bilateral pleural effusions DKA ESBL E.coli bacteremia/UTI Emphysematous pyelonephritis Uncontrolled Type 2 DM MARLENE Left Hydronephrosis Fatty Liver Abnormal LFTs, mixed picture Skin rash Acute encephalopathy, improving Gastroenteritis, viral Thrombocytopenia- multi factorial -Continue with current care -Diagnostic and therapeutic thoracentesis( plan to get this done when platelets are >50K) -Supplemental oxygen to keep O2 sats>90% -Antibiotics -Contact isolation -Continue with glycemic control, to keep glucose<180mg/dL -Resume tube feedings -Speech language pathologist to evaluate swallow function -Avoid nephrotoxic agents, renal monitoring. -Stable to transfer out of ICU for ongoing care Discussed in detail with the and patient at the bedside Subjective Date of service: 12/28/17 Principal diagnosis: septic shock Interval history: Seen and examined. Vitals, labs, medications, chart reviewed. No acute overnight events. 24 hour events were reviewed No further episodes of vomiting. Making good amounts of urine Discussed in ICU-IDT rounds. Discussed with Nephrology Objective - Exam Narrative Exam: General appearance: alert in NAD, on 3LNC Eyes: anicteric sclerae, moist conjunctivae; no lid-lag; PERRLA HENT: Atraumatic; oropharynx clear, feedig tube in nares Neck: Trachea midline; supple, no thyromegaly or lymphadenopathy Lungs: abeba scattered rhonchi CV: RRR, no murmurs Abdomen: Soft, non-tender , distended, distant BS Extremities: No peripheral edema or extremity lymphadenopathy Skin: Multiple nodular lesions in the arms, legs and abdominal wall, healed and hyperpigmented Psych: alert talking. Neuro: alert, non focal, obeying simple commands Lines: Vital Signs - 12hr 12/27/17 12/27/17 12/28/17 23:01 23:18 00:00 Temperature 98.5 F Pulse Rate 81 Pulse Rate [ 85 From Monitor] Respiratory 12 Rate Blood Pressure 121/62 O2 Sat by Pulse 99 35 L Oximetry 12/28/17 12/28/17 12/28/17 00:01 01:00 02:00 Temperature Pulse Rate 82 82 83 Pulse Rate [ From Monitor] Respiratory 19 17 13 Rate Blood Pressure 153/73 153/73 135/66 O2 Sat by Pulse 96 98 96 Oximetry 12/28/17 12/28/1718 03:00 03:06 04:00 Temperature 98.5 F Pulse Rate 79 86 Pulse Rate [ 89 From Monitor] Respiratory 11 L 21 Rate Blood Pressure 135/66 150/66 O2 Sat by Pulse 99 95 Oximetry 12/28/17 12/28/17 12/28/17 05:00 06:00 07:00 Temperature Pulse Rate 88 83 79 Pulse Rate [ From Monitor] Respiratory 17 12 12 Rate Blood Pressure 150/66 153/66 153/66 O2 Sat by Pulse 98 97 97 Oximetry 12/28/17 12/28/17 12/28/17 08:00 08:35 09:00 Temperature 97.7 F Pulse Rate 66 89 Pulse Rate [ 82 From Monitor] Respiratory 14 15 Rate Blood Pressure 138/82 138/82 O2 Sat by Pulse 97 97 98 Oximetry CBC and BMP: 12/27/17 06:40 12/28/17 05:00 ABG, PT/INR, D-dimer: ABG POC ABG pH 7.599 (7.35-7.45) H 12/27/17 04:07 POC ABG pCO2 42.4 (35-45) 12/27/17 04:07 POC ABG pO2 108 (80-105) H 12/27/17 04:07 POC ABG HCO3 41.6 12/27/17 04:07 POC ABG Total CO2 43 12/27/17 04:07 POC ABG O2 Sat 99 12/27/17 04:07 PT/INR, D-dimer PT 18.5 Sec. (12.2-14.9) H 12/20/17 23:35 INR 1.45 (0.87-1.13) H 12/20/17 23:35 Abnormal lab findings: Abnormal Labs 12/20/17 12/20/17 12/20/17 23:35 23:35 23:35 WBC Hgb Hct MCV 78 L MCH 26 L RDW 15.7 H Plt Count 77 L Seg Neuts % (Manual) 76.0 H Lymphocytes % (Manual) 6.0 L Seg Neutrophils # Man 8.2 H Lymphocytes # (Manual) 0.6 L PT 18.5 H INR 1.45 H POC ABG pH POC ABG pCO2 POC ABG pO2 Sodium 130 L Potassium 3.5 L Chloride 92.3 L Carbon Dioxide 17 L BUN 27 H Creatinine 2.2 H Glucose 535 H* POC Glucose Lactic Acid Calcium 7.0 L Phosphorus Magnesium Total Bilirubin AST ALT Alkaline Phosphatase 173 H Troponin T C-Reactive Protein Total Protein 5.1 L Albumin 2.6 L Triglycerides LDL Cholesterol Direct HDL Cholesterol Urine WBC (Auto) Urine Creatinine 12/20/17 12/21/17 12/21/17 23:35 01:11 01:11 WBC Hgb Hct MCV MCH RDW Plt Count Seg Neuts % (Manual) Lymphocytes % (Manual) Seg Neutrophils # Man Lymphocytes # (Manual) PT INR POC ABG pH POC ABG pCO2 POC ABG pO2 Sodium Potassium Chloride Carbon Dioxide BUN Creatinine Glucose POC Glucose Lactic Acid 8.30 H* 8.10 H* Calcium Phosphorus 1.90 L Magnesium 1.30 L Total Bilirubin AST ALT Alkaline Phosphatase Troponin T C-Reactive Protein Total Protein Albumin Triglycerides LDL Cholesterol Direct HDL Cholesterol Urine WBC (Auto) Urine Creatinine 12/21/17 12/21/17 12/21/17 01:11 01:50 02:09 WBC Hgb Hct MCV MCH RDW Plt Count Seg Neuts % (Manual) Lymphocytes % (Manual) Seg Neutrophils # Man Lymphocytes # (Manual) PT INR POC ABG pH POC ABG pCO2 POC ABG pO2 Sodium 133 L Potassium 3.3 L Chloride 97.9 L Carbon Dioxide 15 L BUN 26 H Creatinine 2.1 H Glucose 504 H* POC Glucose 391 H Lactic Acid Calcium 6.4 L Phosphorus Magnesium Total Bilirubin AST ALT Alkaline Phosphatase Troponin T C-Reactive Protein Total Protein Albumin Triglycerides LDL Cholesterol Direct HDL Cholesterol Urine WBC (Auto) 38.0 H Urine Creatinine 12/21/17 12/21/17 12/21/17 03:10 03:26 05:15 WBC Hgb Hct MCV MCH RDW Plt Count Seg Neuts % (Manual) Lymphocytes % (Manual) Seg Neutrophils # Man Lymphocytes # (Manual) PT INR POC ABG pH POC ABG pCO2 POC ABG pO2 Sodium 135 L Potassium 3.3 L Chloride Carbon Dioxide 14 L BUN 25 H Creatinine 1.9 H Glucose 443 H POC Glucose 389 H 407 H Lactic Acid Calcium 6.0 L Phosphorus Magnesium Total Bilirubin AST ALT Alkaline Phosphatase Troponin T C-Reactive Protein Total Protein Albumin Triglycerides LDL Cholesterol Direct HDL Cholesterol Urine WBC (Auto) Urine Creatinine 12/21/17 12/21/17 12/21/17 06:00 06:00 06:09 WBC Hgb Hct MCV MCH RDW Plt Count Seg Neuts % (Manual) Lymphocytes % (Manual) Seg Neutrophils # Man Lymphocytes # (Manual) PT INR POC ABG pH POC ABG pCO2 POC ABG pO2 Sodium Potassium 3.4 L Chloride Carbon Dioxide 12 L BUN 28 H Creatinine 1.9 H Glucose 283 H POC Glucose 326 H Lactic Acid 7.90 H* Calcium 6.0 L Phosphorus Magnesium Total Bilirubin AST ALT Alkaline Phosphatase Troponin T C-Reactive Protein Total Protein Albumin Triglycerides LDL Cholesterol Direct HDL Cholesterol Urine WBC (Auto) Urine Creatinine 12/21/17 12/21/17 12/21/17 07:23 08:16 08:44 WBC Hgb Hct MCV MCH RDW Plt Count Seg Neuts % (Manual) Lymphocytes % (Manual) Seg Neutrophils # Man Lymphocytes # (Manual) PT INR POC ABG pH POC ABG pCO2 POC ABG pO2 Sodium Potassium 3.3 L Chloride 107.8 H Carbon Dioxide 14 L BUN 29 H Creatinine 2.0 H Glucose 140 H POC Glucose 267 H 257 H Lactic Acid Calcium 6.2 L Phosphorus Magnesium Total Bilirubin AST ALT Alkaline Phosphatase Troponin T C-Reactive Protein Total Protein Albumin Triglycerides LDL Cholesterol Direct HDL Cholesterol Urine WBC (Auto) Urine Creatinine 12/21/17 12/21/17 12/21/17 08:44 08:44 09:02 WBC Hgb Hct MCV MCH RDW Plt Count Seg Neuts % (Manual) Lymphocytes % (Manual) Seg Neutrophils # Man Lymphocytes # (Manual) PT INR POC ABG pH POC ABG pCO2 POC ABG pO2 Sodium Potassium Chloride Carbon Dioxide BUN Creatinine Glucose POC Glucose 211 H Lactic Acid 6.40 H* Calcium Phosphorus Magnesium Total Bilirubin AST ALT Alkaline Phosphatase Troponin T C-Reactive Protein 27.10 H Total Protein Albumin Triglycerides LDL Cholesterol Direct HDL Cholesterol Urine WBC (Auto) Urine Creatinine 12/21/17 12/21/17 12/21/17 09:35 10:27 11:57 WBC Hgb Hct MCV MCH RDW Plt Count Seg Neuts % (Manual) Lymphocytes % (Manual) Seg Neutrophils # Man Lymphocytes # (Manual) PT INR POC ABG pH POC ABG pCO2 POC ABG pO2 Sodium Potassium Chloride Carbon Dioxide BUN Creatinine Glucose POC Glucose 182 H 142 H 134 H Lactic Acid Calcium Phosphorus Magnesium Total Bilirubin AST ALT Alkaline Phosphatase Troponin T C-Reactive Protein Total Protein Albumin Triglycerides LDL Cholesterol Direct HDL Cholesterol Urine WBC (Auto) Urine Creatinine 06/04/18 06/04/18 06/04/18 13:27 15:20 17:39 WBC Hgb Hct MCV MCH RDW Plt Count Seg Neuts % (Manual) Lymphocytes % (Manual) Seg Neutrophils # Man Lymphocytes # (Manual) PT INR POC ABG pH POC ABG pCO2 POC ABG pO2 Sodium Potassium Chloride Carbon Dioxide BUN Creatinine Glucose POC Glucose 161 H 189 H Lactic Acid Calcium Phosphorus Magnesium Total Bilirubin AST ALT Alkaline Phosphatase Troponin T 0.087 H C-Reactive Protein Total Protein Albumin Triglycerides 202 H LDL Cholesterol Direct 6 L HDL Cholesterol 10 L Urine WBC (Auto) Urine Creatinine 12/21/17 12/21/17 12/21/17 17:47 19:32 20:56 WBC Hgb Hct MCV MCH RDW Plt Count Seg Neuts % (Manual) Lymphocytes % (Manual) Seg Neutrophils # Man Lymphocytes # (Manual) PT INR POC ABG pH POC ABG pCO2 POC ABG pO2 Sodium Potassium Chloride 107.2 H Carbon Dioxide 14 L BUN 32 H Creatinine 2.4 H Glucose 171 H POC Glucose 160 H 136 H Lactic Acid Calcium 6.6 L Phosphorus Magnesium Total Bilirubin AST ALT Alkaline Phosphatase Troponin T C-Reactive Protein Total Protein Albumin Triglycerides LDL Cholesterol Direct HDL Cholesterol Urine WBC (Auto) Urine Creatinine 12/21/17 12/22/17 12/22/17 21:12 00:29 03:08 WBC Hgb Hct MCV MCH RDW Plt Count Seg Neuts % (Manual) Lymphocytes % (Manual) Seg Neutrophils # Man Lymphocytes # (Manual) PT INR POC ABG pH 7.152 L 7.241 L POC ABG pCO2 28.1 L POC ABG pO2 62 L 113 H Sodium Potassium Chloride Carbon Dioxide BUN Creatinine Glucose POC Glucose 109 H Lactic Acid Calcium Phosphorus Magnesium Total Bilirubin AST ALT Alkaline Phosphatase Troponin T C-Reactive Protein Total Protein Albumin Triglycerides LDL Cholesterol Direct HDL Cholesterol Urine WBC (Auto) Urine Creatinine 12/22/17 12/22/17 12/22/17 04:29 04:30 04:30 WBC 21.9 H Hgb Hct MCV 77 L MCH 25 L RDW 16.6 H Plt Count 57 L Seg Neuts % (Manual) Lymphocytes % (Manual) Seg Neutrophils # Man Lymphocytes # (Manual) PT INR POC ABG pH POC ABG pCO2 POC ABG pO2 Sodium Potassium Chloride Carbon Dioxide 14 L BUN 37 H Creatinine 2.7 H Glucose 145 H POC Glucose 139 H Lactic Acid Calcium 6.4 L Phosphorus Magnesium Total Bilirubin AST ALT Alkaline Phosphatase Troponin T C-Reactive Protein Total Protein Albumin Triglycerides LDL Cholesterol Direct HDL Cholesterol Urine WBC (Auto) Urine Creatinine 12/22/17 12/22/17 12/22/17 04:30 05:24 05:54 WBC Hgb Hct MCV MCH RDW Plt Count Seg Neuts % (Manual) Lymphocytes % (Manual) Seg Neutrophils # Man Lymphocytes # (Manual) PT INR POC ABG pH POC ABG pCO2 POC ABG pO2 Sodium Potassium Chloride Carbon Dioxide BUN Creatinine Glucose POC Glucose 144 H 145 H Lactic Acid 3.30 H* Calcium Phosphorus Magnesium Total Bilirubin AST ALT Alkaline Phosphatase Troponin T C-Reactive Protein Total Protein Albumin Triglycerides LDL Cholesterol Direct HDL Cholesterol Urine WBC (Auto) Urine Creatinine 12/22/17 12/22/17 12/22/17 07:56 07:56 10:09 WBC Hgb Hct MCV MCH RDW Plt Count Seg Neuts % (Manual) Lymphocytes % (Manual) Seg Neutrophils # Man Lymphocytes # (Manual) PT INR POC ABG pH 7.180 L POC ABG pCO2 POC ABG pO2 117 H Sodium Potassium Chloride Carbon Dioxide 14 L BUN 39 H Creatinine 2.9 H Glucose 174 H POC Glucose Lactic Acid 3.00 H* Calcium 6.7 L Phosphorus Magnesium Total Bilirubin AST ALT Alkaline Phosphatase Troponin T C-Reactive Protein Total Protein Albumin Triglycerides LDL Cholesterol Direct HDL Cholesterol Urine WBC (Auto) Urine Creatinine 12/22/17 12/22/17 12/22/17 10:12 12:19 14:23 WBC Hgb Hct MCV MCH RDW Plt Count Seg Neuts % (Manual) Lymphocytes % (Manual) Seg Neutrophils # Man Lymphocytes # (Manual) PT INR POC ABG pH 7.241 L 7.285 L POC ABG pCO2 33.9 L 29.9 L POC ABG pO2 45 L 117 H Sodium Potassium Chloride Carbon Dioxide BUN Creatinine Glucose POC Glucose 185 H Lactic Acid Calcium Phosphorus Magnesium Total Bilirubin AST ALT Alkaline Phosphatase Troponin T C-Reactive Protein Total Protein Albumin Triglycerides LDL Cholesterol Direct HDL Cholesterol Urine WBC (Auto) Urine Creatinine 12/22/17 12/22/17 12/22/17 14:27 17:22 19:58 WBC Hgb Hct MCV MCH RDW Plt Count Seg Neuts % (Manual) Lymphocytes % (Manual) Seg Neutrophils # Man Lymphocytes # (Manual) PT INR POC ABG pH 7.338 L POC ABG pCO2 27.6 L POC ABG pO2 167 H Sodium Potassium Chloride Carbon Dioxide BUN Creatinine Glucose POC Glucose 220 H 197 H Lactic Acid Calcium Phosphorus Magnesium Total Bilirubin AST ALT Alkaline Phosphatase Troponin T C-Reactive Protein Total Protein Albumin Triglycerides LDL Cholesterol Direct HDL Cholesterol Urine WBC (Auto) Urine Creatinine 12/22/17 12/23/17 12/23/17 21:18 05:30 05:30 WBC 14.5 H Hgb Hct MCV 75 L MCH 26 L RDW 16.7 H Plt Count 26 L Seg Neuts % (Manual) Lymphocytes % (Manual) Seg Neutrophils # Man Lymphocytes # (Manual) PT INR POC ABG pH POC ABG pCO2 POC ABG pO2 Sodium Potassium Chloride Carbon Dioxide 15 L BUN 49 H Creatinine 3.5 H Glucose 123 H POC Glucose 189 H Lactic Acid Calcium 6.7 L Phosphorus Magnesium Total Bilirubin 3.60 H AST 93 H ALT 58 H Alkaline Phosphatase Troponin T C-Reactive Protein Total Protein 4.5 L Albumin 2.0 L Triglycerides LDL Cholesterol Direct HDL Cholesterol Urine WBC (Auto) Urine Creatinine 12/23/17 12/23/17 12/23/17 05:30 12:31 15:13 WBC Hgb Hct MCV MCH RDW Plt Count Seg Neuts % (Manual) Lymphocytes % (Manual) Seg Neutrophils # Man Lymphocytes # (Manual) PT INR POC ABG pH POC ABG pCO2 POC ABG pO2 Sodium Potassium Chloride Carbon Dioxide BUN Creatinine Glucose POC Glucose 141 H Lactic Acid Calcium Phosphorus Magnesium Total Bilirubin AST ALT Alkaline Phosphatase Troponin T C-Reactive Protein 38.70 H Total Protein Albumin Triglycerides LDL Cholesterol Direct HDL Cholesterol Urine WBC (Auto) Urine Creatinine 65.1 H 12/23/17 12/24/17 12/24/17 18:53 00:13 05:15 WBC 14.7 H Hgb Hct MCV 76 L MCH 25 L RDW 16.6 H Plt Count 20 L Seg Neuts % (Manual) Lymphocytes % (Manual) Seg Neutrophils # Man Lymphocytes # (Manual) PT INR POC ABG pH POC ABG pCO2 POC ABG pO2 Sodium Potassium Chloride Carbon Dioxide BUN Creatinine Glucose POC Glucose 205 H 207 H Lactic Acid Calcium Phosphorus Magnesium Total Bilirubin AST ALT Alkaline Phosphatase Troponin T C-Reactive Protein Total Protein Albumin Triglycerides LDL Cholesterol Direct HDL Cholesterol Urine WBC (Auto) Urine Creatinine 12/24/17 12/24/17 12/24/17 05:15 05:51 08:31 WBC Hgb Hct MCV MCH RDW Plt Count Seg Neuts % (Manual) Lymphocytes % (Manual) Seg Neutrophils # Man Lymphocytes # (Manual) PT INR POC ABG pH POC ABG pCO2 POC ABG pO2 Sodium Potassium Chloride 107.2 H Carbon Dioxide 19 L BUN 67 H Creatinine 4.0 H Glucose 150 H POC Glucose 176 H 251 H Lactic Acid Calcium 7.2 L Phosphorus Magnesium Total Bilirubin 5.60 H AST 47 H ALT Alkaline Phosphatase Troponin T C-Reactive Protein Total Protein 4.3 L Albumin 1.9 L Triglycerides LDL Cholesterol Direct HDL Cholesterol Urine WBC (Auto) Urine Creatinine 12/24/17 12/24/17 12/24/17 11:53 17:19 21:16 WBC Hgb Hct MCV MCH RDW Plt Count Seg Neuts % (Manual) Lymphocytes % (Manual) Seg Neutrophils # Man Lymphocytes # (Manual) PT INR POC ABG pH POC ABG pCO2 POC ABG pO2 Sodium Potassium Chloride Carbon Dioxide BUN Creatinine Glucose POC Glucose 274 H 302 H 345 H Lactic Acid Calcium Phosphorus Magnesium Total Bilirubin AST ALT Alkaline Phosphatase Troponin T C-Reactive Protein Total Protein Albumin Triglycerides LDL Cholesterol Direct HDL Cholesterol Urine WBC (Auto) Urine Creatinine 12/25/17 12/25/17 12/25/17 05:55 05:55 05:55 WBC 13.7 H Hgb Hct 30.2 L MCV 75 L MCH 25 L RDW 17.2 H Plt Count 24 L Seg Neuts % (Manual) 85.0 H Lymphocytes % (Manual) 3.0 L Seg Neutrophils # Man 11.6 H Lymphocytes # (Manual) 0.4 L PT INR POC ABG pH POC ABG pCO2 POC ABG pO2 Sodium Potassium 3.5 L Chloride Carbon Dioxide BUN 81 H Creatinine 3.9 H Glucose 471 H POC Glucose Lactic Acid Calcium 7.5 L Phosphorus Magnesium Total Bilirubin 7.70 H AST ALT Alkaline Phosphatase 234 H Troponin T C-Reactive Protein 19.90 H Total Protein 4.9 L Albumin 1.6 L Triglycerides LDL Cholesterol Direct HDL Cholesterol Urine WBC (Auto) Urine Creatinine 12/25/17 12/25/17 12/25/17 08:21 09:41 12:14 WBC Hgb Hct MCV MCH RDW Plt Count Seg Neuts % (Manual) Lymphocytes % (Manual) Seg Neutrophils # Man Lymphocytes # (Manual) PT INR POC ABG pH POC ABG pCO2 POC ABG pO2 Sodium Potassium Chloride Carbon Dioxide BUN Creatinine Glucose POC Glucose 468 H 405 H Lactic Acid 2.10 H* Calcium Phosphorus Magnesium Total Bilirubin AST ALT Alkaline Phosphatase Troponin T C-Reactive Protein Total Protein Albumin Triglycerides LDL Cholesterol Direct HDL Cholesterol Urine WBC (Auto) Urine Creatinine 12/25/17 12/25/17 12/26/17 16:13 21:46 06:54 WBC 16.6 H Hgb 10.0 L Hct 29.3 L MCV 74 L MCH 25 L RDW 16.5 H Plt Count 27 L Seg Neuts % (Manual) Lymphocytes % (Manual) Seg Neutrophils # Man Lymphocytes # (Manual) PT INR POC ABG pH POC ABG pCO2 POC ABG pO2 Sodium Potassium Chloride Carbon Dioxide BUN Creatinine Glucose POC Glucose 264 H 249 H Lactic Acid Calcium Phosphorus Magnesium Total Bilirubin AST ALT Alkaline Phosphatase Troponin T C-Reactive Protein Total Protein Albumin Triglycerides LDL Cholesterol Direct HDL Cholesterol Urine WBC (Auto) Urine Creatinine 12/26/17 12/26/17 12/26/17 06:54 07:57 11:36 WBC Hgb Hct MCV MCH RDW Plt Count Seg Neuts % (Manual) Lymphocytes % (Manual) Seg Neutrophils # Man Lymphocytes # (Manual) PT INR POC ABG pH POC ABG pCO2 POC ABG pO2 Sodium Potassium 3.0 L Chloride 97.7 L Carbon Dioxide 32 H BUN 78 H Creatinine 3.8 H Glucose 353 H POC Glucose 384 H 274 H Lactic Acid Calcium 7.2 L Phosphorus Magnesium Total Bilirubin 6.00 H AST 50 H ALT Alkaline Phosphatase 265 H Troponin T C-Reactive Protein Total Protein 4.8 L Albumin 1.4 L Triglycerides LDL Cholesterol Direct HDL Cholesterol Urine WBC (Auto) Urine Creatinine 12/26/17 12/26/17 12/27/17 18:33 21:21 02:04 WBC Hgb Hct MCV MCH RDW Plt Count Seg Neuts % (Manual) Lymphocytes % (Manual) Seg Neutrophils # Man Lymphocytes # (Manual) PT INR POC ABG pH POC ABG pCO2 POC ABG pO2 Sodium Potassium Chloride Carbon Dioxide BUN Creatinine Glucose POC Glucose 198 H 182 H 200 H Lactic Acid Calcium Phosphorus Magnesium Total Bilirubin AST ALT Alkaline Phosphatase Troponin T C-Reactive Protein Total Protein Albumin Triglycerides LDL Cholesterol Direct HDL Cholesterol Urine WBC (Auto) Urine Creatinine 12/27/17 12/27/17 12/27/17 04:07 05:24 06:40 WBC 16.8 H Hgb 9.7 L Hct 29.5 L MCV 74 L MCH 24 L RDW 16.9 H Plt Count 43 L Seg Neuts % (Manual) Lymphocytes % (Manual) Seg Neutrophils # Man Lymphocytes # (Manual) PT INR POC ABG pH 7.599 H POC ABG pCO2 POC ABG pO2 108 H Sodium Potassium Chloride Carbon Dioxide BUN Creatinine Glucose POC Glucose 156 H Lactic Acid Calcium Phosphorus Magnesium Total Bilirubin AST ALT Alkaline Phosphatase Troponin T C-Reactive Protein Total Protein Albumin Triglycerides LDL Cholesterol Direct HDL Cholesterol Urine WBC (Auto) Urine Creatinine 12/27/17 12/27/17 12/27/17 06:40 11:03 15:50 WBC Hgb Hct MCV MCH RDW Plt Count Seg Neuts % (Manual) Lymphocytes % (Manual) Seg Neutrophils # Man Lymphocytes # (Manual) PT INR POC ABG pH POC ABG pCO2 POC ABG pO2 Sodium Potassium 3.5 L Chloride Carbon Dioxide 36 H BUN 81 H Creatinine 3.8 H Glucose 153 H POC Glucose 220 H 275 H Lactic Acid Calcium 7.6 L Phosphorus Magnesium Total Bilirubin AST ALT Alkaline Phosphatase Troponin T C-Reactive Protein Total Protein Albumin Triglycerides LDL Cholesterol Direct HDL Cholesterol Urine WBC (Auto) Urine Creatinine 12/27/17 12/27/17 12/28/17 17:23 21:44 02:05 WBC Hgb Hct MCV MCH RDW Plt Count Seg Neuts % (Manual) Lymphocytes % (Manual) Seg Neutrophils # Man Lymphocytes # (Manual) PT INR POC ABG pH POC ABG pCO2 POC ABG pO2 Sodium Potassium Chloride Carbon Dioxide BUN Creatinine Glucose POC Glucose 256 H 180 H 148 H Lactic Acid Calcium Phosphorus Magnesium Total Bilirubin AST ALT Alkaline Phosphatase Troponin T C-Reactive Protein Total Protein Albumin Triglycerides LDL Cholesterol Direct HDL Cholesterol Urine WBC (Auto) Urine Creatinine 12/28/17 12/28/17 12/28/17 04:45 05:00 08:14 WBC Hgb Hct MCV MCH RDW Plt Count Seg Neuts % (Manual) Lymphocytes % (Manual) Seg Neutrophils # Man Lymphocytes # (Manual) PT INR POC ABG pH POC ABG pCO2 POC ABG pO2 Sodium 147 H Potassium 3.3 L Chloride Carbon Dioxide 32 H BUN 82 H Creatinine 3.9 H Glucose 212 H POC Glucose 205 H 180 H Lactic Acid Calcium 7.6 L Phosphorus Magnesium Total Bilirubin AST ALT Alkaline Phosphatase Troponin T C-Reactive Protein Total Protein Albumin Triglycerides LDL Cholesterol Direct HDL Cholesterol Urine WBC (Auto) Urine Creatinine
[2017-12-28] MEDS: NACL 0.45% 1000 ML 1,000 ML IV SCH (10:31)
--- NOTE | 2017-12-28 10:54 | Progress Note ---
Assessment and Plan Assessment: 1) Severe Sepsis with septic +/- hypovolemic shock: improving, off pressors. Etiology most likely complicated UTI +/- GNR bacteremia +/- DKA/dehydration. -Lactic acid 8.3. -CRP 27. 2) Complicated UTI / emphysematous pyelitis: Secondary to ESBL E coli. -CT of the abdomen showed bibasilar infiltrates with enlarged fatty liver and the left hydronephrosis with hydroureter and air. -6/3 GNR 10-100K 3) E. coli bacteremia: from UTI -6/3 E coli 3 of 4 bottles - pansensitive -/ +ESBL E coli 4) Acute encephalopathy 5) MARLENE - worsening 6) Acute respiratory failure - still on BIPAP 7) Uncontrolled diabetes with DKA 8) Hypertension 9) Diarrhea - ? reactive 10) Low platelets- from sepsis - worsening 11) ? pneumonia ? aspiration 12) Skin rash ? scabies S/P permethrin cream Plan: -stop cefepime -start meropenem renally dose -repeat blood cx today -continue isolation now for ESBL -per IR not optimal candidate for nephrostomy tube due to minimally distented collecting system and thrombocytopenia. -monitor platelets and kidney function -upon discharge will need IV ertapenem x 14 days Thank you for your consultation, will follow up with you. Guerda Nuñez MD Infectious Diseases Specialist [facility] M [phone] O [phone] Subjective Date of service: 12/28/17 Principal diagnosis: septic shock Interval history: Alert in [place] O2, off pressors, No fever. Microbiology: Blood cultures: 12/20 E coli 3 of 4 bottles 12/22 ESBL E coli Urine cultures: 6/ E coli 10-100K Current Antimicrobials: cefepime / Previous Antimicrobials: Zosyn Vancomycin meropenem Objective - Exam Narrative Exam: General appearance: alert in NAD Eyes: anicteric sclerae, moist conjunctivae; no lid-lag; PERRLA HENT: Atraumatic; oropharynx +NGT Neck: Trachea midline; supple, no thyromegaly or lymphadenopathy Lungs: abeba scattered rhonchi CV: RRR, no murmurs Abdomen: Soft, non-tender Extremities: No peripheral edema or extremity lymphadenopathy Skin: Multiple nodular lesions in the arms, legs and abdominal wall Psych: alert talking. Neuro: alert Lines: amin - Constitutional Vitals: Vital Signs Temp Pulse Resp BP Pulse Ox 97.7 F 86 15 138/82 98 12/28/17 08:00 12/28/17 10:00 12/28/17 10:00 12/28/17 10:00 12/28/17 10:00 Temperature -Last 24 Hours Temperature 97.7 F Temperature 98.5 F Temperature 98.5 F Temperature 98.4 F Temperature 97.7 F Temperature 97.1 F - Labs CBC & Chem 7: 12/27/17 06:40 12/28/17 05:00 Labs: Abnormal lab results 12/27/17 12/27/17 12/27/17 Range/Units 11:03 15:50 17:23 Sodium (137-145) mmol/L Potassium (3.6-5.0) mmol/L Carbon Dioxide (22-30) mmol/L BUN (7-17) mg/dL Creatinine (0.7-1.2) mg/dL Glucose (65-100) mg/dL POC Glucose 220 H 275 H 256 H (70-105) Calcium (8.4-10.2) mg/dL 12/27/17 12/28/17 12/28/17 Range/Units 21:44 02:05 04:45 Sodium (137-145) mmol/L Potassium (3.6-5.0) mmol/L Carbon Dioxide (22-30) mmol/L BUN (7-17) mg/dL Creatinine (0.7-1.2) mg/dL Glucose (65-100) mg/dL POC Glucose 180 H 148 H 205 H (70-105) Calcium (8.4-10.2) mg/dL 12/28/17 12/28/17 Range/Units 05:00 08:14 Sodium 147 H (137-145) mmol/L Potassium 3.3 L (3.6-5.0) mmol/L Carbon Dioxide 32 H (22-30) mmol/L BUN 82 H (7-17) mg/dL Creatinine 3.9 H (0.7-1.2) mg/dL Glucose 212 H (65-100) mg/dL POC Glucose 180 H (70-105) Calcium 7.6 L (8.4-10.2) mg/dL
--- NOTE | 2017-12-28 11:21 | Progress Note ---
Assessment and Plan - Septic shock: ID note reviewed and appreciated Continue antibiotics per ID recommendations - Acute pyelonephritis CT abdomen showed sodium of hydronephrosis I. Urology evaluated. Conservative management was agreed as a line of management. family opted for this plan of care given patient's multiple medical conditions. I also evaluated for nephrostomy - Neutrophilic leukocytosis: Secondary to sepsis and bacteremia - DKA: Improved off insulin drip Blood sugars poorly controlled Adjust basal insulin dose and continue sliding-scale coverage Increase Accu-Cheks to every 4 hours - Ecoli Bacterimia: Continue cefepime per ID recommendations - Uncontrolled Type 2 DM: Insulin dose adjusted - Acute kidney injury: Nephrology following - Hypokalemia: Potassium supplements ordered Will monitor lytes - Thrombocytopenia: ? 2/2 sepsis, Will add thiamine - DVT prophylaxis: SCDs Subjective Date of service: 12/28/17 Principal diagnosis: septic shock, Acute pyleonephritis Interval history: Patient seen and examined. Denies any fever. No nausea no vomiting. Patient lying quietly in bed. Family member by the bedside. Objective - Exam Narrative Exam: Constitutional: Well-nourished well-developed. In no distress. NG tube in place Head: Normocephalic atraumatic Eyes: Pupils are equal round and reactive to light Nose: No enlarged turbinates, no septal deviation. Mouth: Moist mucous membranes. Neck: Supple no thyromegaly. No bruit. No JVD Heart: Regular rate and rhythm, S1-S2 abnormal. No rubs murmurs or gallop Lungs: Clear to auscultation bilaterally no rales or rhonchi Abdomen: Soft, nontender. Bowel sound are present. Extremities: No edema no cyanosis and no clubbing. Neuro: Alert oriented Oriented x3. No focal sensory or motor deficit. Skin: No rashes no hyperemic spots Psychiatry: Euthymic. Calm. - Constitutional Vitals: Vital Signs - 12hr 12/27/17 12/28/17 12/28/17 23:18 00:00 00:01 Temperature 98.5 F Pulse Rate 82 Pulse Rate [ 85 From Monitor] Respiratory 19 Rate Blood Pressure 153/73 O2 Sat by Pulse 35 L 96 Oximetry 12/28/17 12/28/17 12/28/17 01:00 02:00 03:00 Temperature Pulse Rate 82 83 79 Pulse Rate [ From Monitor] Respiratory 17 13 11 L Rate Blood Pressure 153/73 135/66 135/66 O2 Sat by Pulse 98 96 99 Oximetry 12/28/17 12/28/17 12/28/17 03:06 04:00 05:00 Temperature 98.5 F Pulse Rate 86 88 Pulse Rate [ 89 From Monitor] Respiratory 21 17 Rate Blood Pressure 150/66 150/66 O2 Sat by Pulse 95 98 Oximetry 12/28/17 12/28/17 12/28/17 06:00 07:00 08:00 Temperature 97.7 F Pulse Rate 83 79 66 Pulse Rate [ 82 From Monitor] Respiratory 12 12 14 Rate Blood Pressure 153/66 153/66 138/82 O2 Sat by Pulse 97 97 97 Oximetry 12/28/17 12/28/17 12/28/17 08:35 09:00 10:00 Temperature Pulse Rate 89 86 Pulse Rate [ From Monitor] Respiratory 15 15 Rate Blood Pressure 138/82 138/82 O2 Sat by Pulse 97 98 98 Oximetry 12/28/17 11:08 Temperature Pulse Rate Pulse Rate [ From Monitor] Respiratory Rate Blood Pressure O2 Sat by Pulse 95 Oximetry - Labs CBC & Chem 7: 12/27/17 06:40 12/28/17 05:00 Labs: Abnormal lab results 12/27/17 12/27/17 12/27/17 Range/Units 11:03 15:50 17:23 Sodium (137-145) mmol/L Potassium (3.6-5.0) mmol/L Carbon Dioxide (22-30) mmol/L BUN (7-17) mg/dL Creatinine (0.7-1.2) mg/dL Glucose (65-100) mg/dL POC Glucose 220 H 275 H 256 H (70-105) Calcium (8.4-10.2) mg/dL 12/27/17 12/28/17 12/28/17 Range/Units 21:44 02:05 04:45 Sodium (137-145) mmol/L Potassium (3.6-5.0) mmol/L Carbon Dioxide (22-30) mmol/L BUN (7-17) mg/dL Creatinine (0.7-1.2) mg/dL Glucose (65-100) mg/dL POC Glucose 180 H 148 H 205 H (70-105) Calcium (8.4-10.2) mg/dL 12/28/17 12/28/17 Range/Units 05:00 08:14 Sodium 147 H (137-145) mmol/L Potassium 3.3 L (3.6-5.0) mmol/L Carbon Dioxide 32 H (22-30) mmol/L BUN 82 H (7-17) mg/dL Creatinine 3.9 H (0.7-1.2) mg/dL Glucose 212 H (65-100) mg/dL POC Glucose 180 H (70-105) Calcium 7.6 L (8.4-10.2) mg/dL
[2017-12-28] MEDS: MERREM 1,000 MG in NACL 0.9% 100 ML IV SCH (13:18)
[2017-12-28 13:46] LABS: INR 1.25 (0.87-1.13)
[2017-12-28] MEDS ORDERED: PANCREAZE DR 10,500 UNIT FEEDTUBE PRN (18:39)
[2017-12-28] MEDS ORDERED: SODIUM BICARBONATE FEEDTUBE PRN (18:39)
[2017-12-28] MEDS ORDERED: SIMPLE SYRUP FEEDTUBE PRN ×2 (18:39)
[2017-12-28] MEDS ORDERED: POTASSIUM CHLORIDE FEEDTUBE ONE (19:35)
[2017-12-28] MEDS: LANTUS SUB-Q SCH (23:07)
[2017-12-29] MEDS: HumuLIN R SUB-Q SCH ×5 (06:10→22:18)
--- NOTE | 2017-12-29 07:59 | Progress Note ---
Assessment and Plan 1. Acute kidney injury: Vasomotor / hemodynamic MARLENE in the setting of septic shock. Renal function levelled off. UOP is improving. Monitor for DIRECTOR BUSINESS MANAGEMENT needs. Renal prognosis is guarded. 2. Septic shock: E.Coli bacteremia. Off Levophed. 3. Left hydronephrosis: Acute pyelonephritis. Improving. 4. Electrolytes: Replete K. Hypernatremia, increase water flushes. 5. DKA: Improving. 6. Acute Encephalopathy. 7. Thrombocytopenia. D/w her at the bedside. Subjective Date of service: 12/29/17 Principal diagnosis: septic shock Interval history: Patient was seen and examined at the bedside. Objective - Vital Signs Vital signs: Vital Signs - 12hr 12/28/17 12/28/17 12/29/17 20:11 22:00 00:18 Temperature 98.4 F 97.9 F Pulse Rate 97 H 73 96 H Respiratory 20 20 Rate Blood Pressure 172/85 150/66 O2 Sat by Pulse 95 92 Oximetry - General Appearance General appearance: well-developed, well-nourished, appears stated age, other ( no distress, NG tube noted) EENT: ATNC, PERRL, hearing intact Neck: supple Respiratory: Present: Clear to Ascultation Cardiology: regular, S1S2, no murmurs Gastrointestinal: normoactive bowel sounds, no tenderness, obese Integumentary: no rash Neurologic: other (able to move extremities) Musculoskeletal: other (trace pedal edema) - Lab 12/29/17 10:02 12/29/17 10:02 Most recent lab results Calcium 7.6 mg/dL (8.4-10.2) L 12/28/17 05:00 Phosphorus 3.60 mg/dL (2.5-4.5) 12/24/17 05:15 Magnesium 2.00 mg/dL (1.7-2.3) 12/24/17 05:15 Urine Creatinine 65.1 mg/dL (0.1-20.0) H 12/23/17 15:13 Urine Sodium 26 mmol/L 12/23/17 15:13
--- NOTE | 2017-12-29 10:07 | Progress Note ---
Assessment and Plan Assessment and plan: 52-year-old woman with a history of hypertension, diabetes comes to emergency room with complaints of fever, nausea vomiting and diarrhea that started yesterday. She's had 4 episodes of diarrhea today, stool is less watery. She also complained of abdominal pain on the left lower quadrant and lower back pain which she describes as sharp pain, intermittent in nature and lasted for a few seconds, intensity 6/10, no radiation, she cannot identify exacerbating or relieving factor. Sons at bedside are translators. The patient took that one dose of antibiotic this morning, she does not know the name of the antibiotic - Septic shock: severe sepsis due to UTI ID note reviewed and appreciated Continue antibiotics per ID recommendations -continue isolation now for ESBL -per IR not optimal candidate for nephrostomy tube due to minimally distented collecting system and thrombocytopenia. -monitor platelets and kidney function -upon discharge will need IV ertapenem x 14 days - Acute pyelonephritis CT abdomen showed sodium of hydronephrosis I. Urology evaluated. Conservative management was agreed as a line of management. family opted for this plan of care given patient's multiple medical conditions. I also evaluated for nephrostomy - Neutrophilic leukocytosis: Secondary to sepsis and bacteremia - DKA: Improved off insulin drip Blood sugars poorly controlled Adjust basal insulin dose and continue sliding-scale coverage Increase Accu-Cheks to every 4 hours - Ecoli Bacterimia: Continue cefepime per ID recommendations - Uncontrolled Type 2 DM: Insulin dose adjusted - Acute kidney injury: Nephrology following - Hypokalemia: Potassium supplements ordered Will monitor lytes - Thrombocytopenia: ? 2/2 sepsis, Will add thiamine - [place] [facility] [place] - Constitutional Vitals: Temp Pulse Resp BP Pulse Ox 97.9 F 96 H 20 150/66 92 12/29/17 00:18 12/29/17 00:18 12/29/17 00:18 12/29/17 00:18 12/29/17 00:18 General appearance: Present: no acute distress Results - Labs CBC & Chem 7: 12/27/17 06:40 12/28/17 05:00 Labs: Laboratory Last Values WBC 16.8 K/mm3 (4.5-11.0) H 12/27/17 06:40 RBC 3.99 M/mm3 (3.65-5.03) 12/27/17 06:40 Hgb 9.7 gm/dl (10.1-14.3) L 12/27/17 06:40 Hct 29.5 % (30.3-42.9) L 12/27/17 06:40 MCV 74 fl (79-97) L 12/27/17 06:40 MCH 24 pg (28-32) L 12/27/17 06:40 MCHC 33 % (30-34) 12/27/17 06:40 RDW 16.9 % (13.2-15.2) H 12/27/17 06:40 Plt Count 43 K/mm3 (140-440) L 12/27/17 06:40 Add Manual Diff Complete 12/25/17 05:55 Total Counted 100 12/25/17 05:55 Seg Neutrophils % Environmental Protection Officer 12/25/17 05:55 Seg Neuts % (Manual) 85.0 % (40.0-70.0) H 12/25/17 05:55 Band Neutrophils % 6.0 % 12/25/17 05:55 Lymphocytes % (Manual) 3.0 % (13.4-35.0) L 12/25/17 05:55 Reactive Lymphs % (Man) 1.0 % 12/25/17 05:55 Monocytes % (Manual) 5.0 % (0.0-7.3) 12/25/17 05:55 Eosinophils % (Manual) 0 % (0.0-4.3) 12/25/17 05:55 Basophils % (Manual) 0 % (0.0-1.8) 12/25/17 05:55 Metamyelocytes % 0 % 12/25/17 05:55 Myelocytes % 0 % 12/25/17 05:55 Promyelocytes % 0 % 12/25/17 05:55 Blast Cells % 0 % 12/25/17 05:55 Nucleated RBC % Not Reportable 12/25/17 05:55 Seg Neutrophils # Man 11.6 K/mm3 (1.8-7.7) H 12/25/17 05:55 Band Neutrophils # 0.8 K/mm3 12/25/17 05:55 Lymphocytes # (Manual) 0.4 K/mm3 (1.2-5.4) L 12/25/17 05:55 Abs React Lymphs (Man) 0.1 K/mm3 12/25/17 05:55 Monocytes # (Manual) 0.7 K/mm3 (0.0-0.8) 12/25/17 05:55 Eosinophils # (Manual) 0.0 K/mm3 (0.0-0.4) 12/25/17 05:55 Basophils # (Manual) 0.0 K/mm3 (0.0-0.1) 12/25/17 05:55 Metamyelocytes # 0.0 K/mm3 12/25/17 05:55 Myelocytes # 0.0 K/mm3 12/25/17 05:55 Promyelocytes # 0.0 K/mm3 12/25/17 05:55 Blast Cells # 0.0 K/mm3 12/25/17 05:55 WBC Morphology Not Reportable 12/25/17 05:55 Hypersegmented Neuts Not Reportable 12/25/17 05:55 Hyposegmented Neuts Not Reportable 12/25/17 05:55 Hypogranular Neuts Not Reportable 12/25/17 05:55 Smudge Cells Not Reportable 12/25/17 05:55 Toxic Granulation Not Reportable 12/25/17 05:55 Toxic Vacuolation Not Reportable 12/25/17 05:55 Dohle Bodies Not Reportable 12/25/17 05:55 Pelger-Huet Anomaly Not Reportable 12/25/17 05:55 Pooja Rods Not Reportable 12/25/17 05:55 Platelet Estimate Consistent w auto 12/25/17 05:55 Clumped Platelets Not Reportable 12/25/17 05:55 Plt Clumps, EDTA Not Reportable 12/25/17 05:55 Large Platelets Not Reportable 12/25/17 05:55 Giant Platelets Not Reportable 12/25/17 05:55 Platelet Satelliting Not Reportable 12/25/17 05:55 Plt Morphology Comment Not Reportable 12/25/17 05:55 RBC Morphology Not Reportable 12/25/17 05:55 Dimorphic RBCs Not Reportable 12/25/17 05:55 Polychromasia Not Reportable 12/25/17 05:55 Hypochromasia 1+ 12/25/17 05:55 Poikilocytosis Not Reportable 12/25/17 05:55 Anisocytosis 1+ 12/25/17 05:55 Microcytosis 1+ 12/25/17 05:55 Macrocytosis Not Reportable 12/25/17 05:55 Spherocytes Not Reportable 12/25/17 05:55 Pappenheimer Bodies Not Reportable 12/25/17 05:55 Sickle Cells Not Reportable 12/25/17 05:55 Target Cells Not Reportable 12/25/17 05:55 Tear Drop Cells Not Reportable 12/25/17 05:55 Ovalocytes Not Reportable 12/25/17 05:55 Helmet Cells Not Reportable 12/25/17 05:55 [place] Bodies Not Reportable 12/25/17 05:55 [place] Rings Not Reportable 12/25/17 05:55 Ab[place] Cells Not Reportable 12/25/17 05:55 Bite Cells Not Reportable 12/25/17 05:55 Crenated Cell Not Reportable 12/25/17 05:55 Elliptocytes Not Reportable 12/25/17 05:55 Acanthocytes (Spur) Not Reportable 12/25/17 05:55 Rouleaux Not Reportable 12/25/17 05:55 Hemoglobin C Crystals Not Reportable 12/25/17 05:55 Schistocytes Not Reportable 12/25/17 05:55 Malaria parasites Not Reportable 12/25/17 05:55 López Bodies Not Reportable 12/25/17 05:55 Hem Pathologist Commnt No 12/25/17 05:55 PT 16.4 Sec. (12.2-14.9) H 12/28/17 13:16 INR 1.25 (0.87-1.13) H 12/28/17 13:16 Heparin Anti-Xa, Unfract Negative (Negative) 12/23/17 10:15 POC ABG pH 7.599 (7.35-7.45) H 12/27/17 04:07 POC ABG pCO2 42.4 (35-45) 12/27/17 04:07 POC ABG pO2 108 (80-105) H 12/27/17 04:07 POC ABG HCO3 41.6 12/27/17 04:07 POC ABG Total CO2 43 12/27/17 04:07 POC ABG O2 Sat 99 12/27/17 04:07 POC ABG Base Excess 20 12/27/17 04:07 VBG pH 7.320 (7.320-7.420) 12/20/17 23:35 FiO2 35 % 12/27/17 04:07 Sodium 147 mmol/L (137-145) H 12/28/17 05:00 Potassium 3.3 mmol/L (3.6-5.0) L 12/28/17 05:00 Chloride 102.5 mmol/L (98-107) 12/28/17 05:00 Carbon Dioxide 32 mmol/L (22-30) H 12/28/17 05:00 Anion Gap 16 mmol/L 12/28/17 05:00 BUN 82 mg/dL (7-17) H 12/28/17 05:00 Creatinine 3.9 mg/dL (0.7-1.2) H 12/28/17 05:00 Estimated GFR 12 ml/min 12/28/17 05:00 BUN/Creatinine Ratio 21 % 12/28/17 05:00 Glucose 212 mg/dL (65-100) H 12/28/17 05:00 POC Glucose 243 (70-105) H 12/29/17 06:36 Lactic Acid 2.10 mmol/L (0.7-2.0) H* 12/25/17 09:41 Calcium 7.6 mg/dL (8.4-10.2) L 12/28/17 05:00 Phosphorus 3.60 mg/dL (2.5-4.5) 12/24/17 05:15 Magnesium 2.00 mg/dL (1.7-2.3) 12/24/17 05:15 Total Bilirubin 6.00 mg/dL (0.1-1.2) H 12/26/17 06:54 AST 50 units/L (5-40) H 12/26/17 06:54 ALT 37 units/L (7-56) 12/26/17 06:54 Alkaline Phosphatase 265 units/L (35-129) H 12/26/17 06:54 Ammonia 28.0 umol/L (25-60) 12/25/17 09:41 Total Creatine Kinase 117 units/L (30-135) 12/21/17 13:27 CK-MB (CK-2) 3.9 ng/mL (0.0-4.0) 12/21/17 13:27 CK-MB (CK-2) Rel Index 3.3 (0-4) 12/21/17 13:27 Troponin T 0.087 ng/mL (0.00-0.029) H 12/21/17 13:27 C-Reactive Protein 19.90 mg/dL (0.00-1.30) H 12/25/17 05:55 Total Protein 4.8 g/dL (6.3-8.2) L 12/26/17 06:54 Albumin 1.4 g/dL (3.9-5) L 12/26/17 06:54 Albumin/Globulin Ratio 0.4 % 12/26/17 06:54 Triglycerides 202 mg/dL (2-149) H 12/21/17 13:27 Cholesterol 57 mg/dL (50-199) 12/21/17 13:27 LDL Cholesterol Direct 6 mg/dL (50-130) L 12/21/17 13:27 HDL Cholesterol 10 mg/dL (40-59) L 12/21/17 13:27 Cholesterol/HDL Ratio 5.70 % 12/21/17 13:27 Urine Color Yellow (Yellow) 12/21/17 01:50 Urine Turbidity Clear (Clear) 12/21/17 01:50 Urine pH 5.0 (5.0-7.0) 12/21/17 01:50 Ur Specific [place]son 1.015 (1.003-1.030) 12/21/17 01:50 Urine Protein <15 mg/dl mg/dL (Negative) 12/21/17 01:50 Urine Glucose (UA) >=500 mg/dL (Negative) 12/21/17 01:50 Urine Ketones Neg mg/dL (Negative) 12/21/17 01:50 Urine Blood Neg (Negative) 12/21/17 01:50 Urine Nitrite Neg (Negative) 12/21/17 01:50 Urine Bilirubin Neg (Negative) 12/21/17 01:50 Urine Urobilinogen < 2.0 mg/dL (<2.0) 12/21/17 01:50 Ur Leukocyte Esterase Sm (Negative) 12/21/17 01:50 Urine WBC (Auto) 38.0 /HPF (0.0-6.0) H 12/21/17 01:50 Urine RBC (Auto) 3.0 /HPF (0.0-6.0) 12/21/17 01:50 U Epithel Cells (Auto) 3.0 /HPF (0-13.0) 12/21/17 01:50 Urine Bacteria (Auto) 2+ /HPF (Negative) 12/21/17 01:50 Urine Creatinine 65.1 mg/dL (0.1-20.0) H 12/23/17 15:13 Urine Sodium 26 mmol/L 12/23/17 15:13 Random Vancomycin 15.4 ug/mL (0-40.0) 12/22/17 Unknown Heparin-induced Plt Ab Negative (Negative) 12/23/17 10:15 UF Heparin High Dose 0 % Release 12/23/17 10:15 BR[facility]NEY UFH Low Dose 0.1 0 % Release 12/23/17 10:15 [facility]NEY UFH Low Dose 0.5 0 % Release 12/23/17 10:15 C. difficile Toxin A&B Negative (Negative) 12/21/17 04:52 Hepatitis A IgM Ab Non-reactive (NonReactive) 12/21/17 08:44 Hep Bs Antigen Non-reactive (Negative) 12/21/17 08:44 Hep B Core IgM Ab Non-reactive (NonReactive) 12/21/17 08:44 Hepatitis C Antibody Non-reactive (NonReactive) 12/21/17 08:44
[2017-12-29] MEDS: SODIUM CHLORIDE FLUSH SYRINGE 10 ML IV SCH ×3 (10:16→22:19)
[2017-12-29] MEDS: VITAMIN B-1 PO SCH (10:16)
[2017-12-29] MEDS: PEPCID IV SCH ×2 (10:16→22:19)
[2017-12-29] MEDS: FOLVITE PO SCH (10:17)
[2017-12-29] MEDS: Centrum Liq PO SCH (10:35)
[2017-12-29 10:57] LABS: Basophils # (Auto) 0.1 K/mm3 (0.0-0.1); Basophils % (Auto) 0.3 % (0.0-1.8); Eosinophils # (Auto) 0.1 K/mm3 (0.0-0.4); Eosinophils % (Auto) 0.5 % (0.0-4.3); Hematocrit 28.5 % (30.3-42.9); Hemoglobin 9.3 gm/dl (10.1-14.3); Lymphocytes # (Auto) 1.2 K/mm3 (1.2-5.4); Lymphocytes % (Auto) 6.8 % (13.4-35.0); Mean Corpuscular HGB Conc 33 % (30-34); Mean Corpuscular Volume 76 fl (79-97); Monocytes # (Auto) 1.3 K/mm3 (0.0-0.8); Monocytes % (Auto) 7.4 % (0.0-7.3); Platelet Count 107 K/mm3 (140-440); Red Blood Count 3.78 M/mm3 (3.65-5.03); Red Cell Distribution Width 17.2 % (13.2-15.2)
[2017-12-29 11:08] LABS: Mean Corpuscular Hemoglobin 25 pg (28-32)
[2017-12-29] MEDS: MERREM 1,000 MG in NACL 0.9% 100 ML IV SCH (11:14)
[2017-12-29 11:27] LABS: Albumin 1.7 g/dL (3.9-5); Calcium 7.7 mg/dL (8.4-10.2)
--- NOTE | 2017-12-29 11:43 | Progress Note ---
Assessment and Plan Assessment: 1) Severe Sepsis with septic +/- hypovolemic shock: still persistent leukocytosis. Intial Etiology most likely complicated UTI +/- GNR bacteremia +/ - DKA/dehydration. ? persistent leukocytosis ? HAP ? 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 -CT of the abdomen showed bibasilar infiltrates with enlarged fatty liver and the left hydronephrosis with hydroureter and air. -/ GNR 10-100K 3) E. coli bacteremia: from UTI -12/20 E coli 3 of 4 bottles - pansensitive -12/22 +ESBL E coli -12/28 no gus so far 4) Acute encephalopathy 5) MARLENE - not better 6) Acute respiratory failure - was on BIPAP 7) Uncontrolled diabetes with DKA 8) Hypertension 9) Diarrhea - ? reactive 10) Low platelets- from sepsis - worsening 11) Bilateral pneumonia ? aspiration ?HAP with bilateral mod pleural effusions seen in repeat CT 12) Skin rash ? scabies S/P permethrin cream Plan: -continue meropenem renally dose -f/u repeat blood cx -continue isolation now for ESBL -if leukocytosis is not better consider thoracentesis +/- repeat abd CT -monitor platelets and kidney function -upon discharge will need IV ertapenem x 14 days Guarded prognosis Thank you for your consultation, will follow up with you. Guerda Nuñez MD Infectious Diseases Specialist [facility] ([facility] M [phone] O [phone] Subjective Date of service: 12/29/17 Principal diagnosis: septic shock Interval history: Feels better, debilitated, No fever. Microbiology: Blood cultures: 12/20 E coli 3 of 4 bottles 12/22 ESBL E coli Urine cultures: 12/20 E coli 10-100K Current Antimicrobials: meropenem 12/28 Previous Antimicrobials: Zosyn Vancomycin meropenem cefepime 12/23-12/28 Objective - Exam Narrative Exam: General appearance: alert in NAD Eyes: anicteric sclerae, moist conjunctivae; no lid-lag; PERRLA HENT: Atraumatic; oropharynx +NGT Neck: Trachea midline; supple, no thyromegaly or lymphadenopathy Lungs: abeba scattered rhonchi CV: RRR, no murmurs Abdomen: Soft, non-tender Extremities: No peripheral edema or extremity lymphadenopathy Skin: Multiple nodular lesions in the arms, legs and abdominal wall Psych: alert talking. Neuro: alert Lines: amin - Constitutional Vitals: Vital Signs Temp Pulse Resp BP Pulse Ox 97.9 F 96 H 20 150/66 92 12/29/17 00:18 12/29/17 00:18 12/29/17 00:18 12/29/17 00:18 12/29/17 00:18 Temperature -Last 24 Hours Temperature 97.9 F Temperature 98.4 F Temperature 97.8 F - Labs CBC & Chem 7: 12/29/17 10:02 12/29/17 10:02 Labs: Abnormal lab results 12/28/17 12/28/17 12/28/17 Range/Units 12:07 13:16 16:28 WBC (4.5-11.0) K/mm3 Hgb (10.1-14.3) gm/dl Hct (30.3-42.9) % MCV (79-97) fl MCH (28-32) pg RDW (13.2-15.2) % Plt Count (140-440) K/mm3 Lymph % (Auto) (13.4-35.0) % [place] % (Auto) (0.0-7.3) % [place] # (0.0-0.8) K/mm3 Seg Neutrophils % (40.0-70.0) % Seg Neutrophils # (1.8-7.7) K/mm3 PT 16.4 H (12.2-14.9) Sec. INR 1.25 H (0.87-1.13) Sodium (137-145) mmol/L Potassium (3.6-5.0) mmol/L Chloride (98-107) mmol/L BUN (7-17) mg/dL Creatinine (0.7-1.2) mg/dL Glucose (65-100) mg/dL POC Glucose 213 H 126 H (70-105) Calcium (8.4-10.2) mg/dL Total Bilirubin (0.1-1.2) mg/dL AST (5-40) units/L Alkaline Phosphatase (35-129) units/L Total Protein (6.3-8.2) g/dL Albumin (3.9-5) g/dL 12/28/17 12/29/17 12/29/17 Range/Units 21:41 06:36 10:02 WBC 17.1 H (4.5-11.0) K/mm3 Hgb 9.3 L (10.1-14.3) gm/dl Hct 28.5 L (30.3-42.9) % MCV 76 L (79-97) fl MCH 25 L (28-32) pg RDW 17.2 H (13.2-15.2) % Plt Count 107 L D (140-440) K/mm3 Lymph % (Auto) 6.8 L (13.4-35.0) % [place] % (Auto) 7.4 H (0.0-7.3) % [place] # 1.3 H (0.0-0.8) K/mm3 Seg Neutrophils % 85.0 H (40.0-70.0) % Seg Neutrophils # 14.5 H (1.8-7.7) K/mm3 PT (12.2-14.9) Sec. INR (0.87-1.13) Sodium (137-145) mmol/L Potassium (3.6-5.0) mmol/L Chloride (98-107) mmol/L BUN (7-17) mg/dL Creatinine (0.7-1.2) mg/dL Glucose (65-100) mg/dL POC Glucose 201 H 243 H (70-105) Calcium (8.4-10.2) mg/dL Total Bilirubin (0.1-1.2) mg/dL AST (5-40) units/L Alkaline Phosphatase (35-129) units/L Total Protein (6.3-8.2) g/dL Albumin (3.9-5) g/dL 12/29/17 Range/Units 10:02 WBC (4.5-11.0) K/mm3 Hgb (10.1-14.3) gm/dl Hct (30.3-42.9) % MCV (79-97) fl MCH (28-32) pg RDW (13.2-15.2) % Plt Count (140-440) K/mm3 Lymph % (Auto) (13.4-35.0) % [place] % (Auto) (0.0-7.3) % [place] # (0.0-0.8) K/mm3 Seg Neutrophils % (40.0-70.0) % Seg Neutrophils # (1.8-7.7) K/mm3 PT (12.2-14.9) Sec. INR (0.87-1.13) Sodium 151 H (137-145) mmol/L Potassium 3.3 L (3.6-5.0) mmol/L Chloride 108.8 H (98-107) mmol/L BUN 81 H (7-17) mg/dL Creatinine 3.8 H (0.7-1.2) mg/dL Glucose 166 H (65-100) mg/dL POC Glucose (70-105) Calcium 7.7 L (8.4-10.2) mg/dL Total Bilirubin 2.40 H (0.1-1.2) mg/dL AST 48 H (5-40) units/L Alkaline Phosphatase 239 H (35-129) units/L Total Protein 5.5 L (6.3-8.2) g/dL Albumin 1.7 L (3.9-5) g/dL
[2017-12-29] MEDS ORDERED: K-DUR PO ONE ×2 (14:00→19:00)
[2017-12-29] MEDS: VANCOMYCIN PO PO SCH ×2 (14:00→20:23)
--- NOTE | 2017-12-29 16:05 | Procedure Note ---
Date of procedure: 12/29/17 Pre-op diagnosis: right pleural effusion Post-op diagnosis: same Procedure: US thoracentesis Findings: moderate right pl fluid Anesthesia: local Surgeon: DICK DEVINE Estimated blood loss: none Pathology: list (120cc) Specimen disposition: to lab Condition: stable Disposition: floor
[2017-12-29 18:10] LABS: Total Cells Counted 100 /mm3
[2017-12-29] MEDS: NACL 0.45% 1000 ML 1,000 ML IV SCH ×2 (18:37→22:18)
--- NOTE | 2017-12-29 19:25 | Progress Note ---
Assessment and Plan Severe sepsis with Septic shock, off vasopressor support Acute respiratory failure Bilateral pleural effusions DKA ESBL E.coli bacteremia/UTI Emphysematous pyelonephritis Uncontrolled Type 2 DM MARLENE Left Hydronephrosis Fatty Liver Abnormal LFTs, mixed picture Skin rash Acute encephalopathy, improving Gastroenteritis, viral Thrombocytopenia- multi factorial -Continue with current care -Diagnostic and therapeutic thoracentesis, follow pleural fluid results -Supplemental oxygen to keep O2 sats>90% -Antibiotics -Contact isolation -Continue with glycemic control, to keep glucose<180mg/dL -Resume tube feedings -Speech language pathologist to evaluate swallow function -Avoid nephrotoxic agents, renal monitoring. -PT/OT to evaluate and treat Discussed in detail with the patient and her daughter at the bedside Subjective Date of service: 12/29/17 Principal diagnosis: septic shock Interval history: Seen and examined. Vitals, labs, medications, chart reviewed. No acute overnight events. 24 hour events were reviewed No further episodes of vomiting. Making good amounts of urine s/p right thoracentesis, well tolerated Objective - Exam Narrative Exam: General appearance: alert in NAD Eyes: anicteric sclerae, moist conjunctivae; no lid-lag; PERRLA HENT: Atraumatic; oropharynx +NGT Neck: Trachea midline; supple, no thyromegaly or lymphadenopathy Lungs: abeba scattered rhonchi CV: RRR, no murmurs Abdomen: Soft, non-tender Extremities: No peripheral edema or extremity lymphadenopathy Skin: Multiple nodular lesions in the arms, legs and abdominal wall Psych: alert talking. Neuro: alert Lines: amin Vital Signs - 12hr 12/29/17 12/29/17 12/29/17 09:19 11:43 17:26 Temperature 97.6 F 98.2 F 98.4 F Pulse Rate 94 H 95 H 89 Respiratory 20 20 20 Rate Blood Pressure 147/69 133/74 139/70 O2 Sat by Pulse 94 96 96 Oximetry CBC and BMP: 12/29/17 10:02 12/29/17 10:02 ABG, PT/INR, D-dimer: ABG POC ABG pH 7.599 (7.35-7.45) H 12/27/17 04:07 POC ABG pCO2 42.4 (35-45) 12/27/17 04:07 POC ABG pO2 108 (80-105) H 12/27/17 04:07 POC ABG HCO3 41.6 12/27/17 04:07 POC ABG Total CO2 43 12/27/17 04:07 POC ABG O2 Sat 99 12/27/17 04:07 PT/INR, D-dimer PT 16.4 Sec. (12.2-14.9) H 12/28/17 13:16 INR 1.25 (0.87-1.13) H 12/28/17 13:16 Abnormal lab findings: Abnormal Labs 12/20/17 12/20/17 12/20/17 23:35 23:35 23:35 WBC Hgb Hct MCV 78 L MCH 26 L RDW 15.7 H Plt Count 77 L Lymph % (Auto) [place] % (Auto) [place] # Seg Neutrophils % Seg Neuts % (Manual) 76.0 H Lymphocytes % (Manual) 6.0 L Seg Neutrophils # Seg Neutrophils # Man 8.2 H Lymphocytes # (Manual) 0.6 L PT 18.5 H INR 1.45 H POC ABG pH POC ABG pCO2 POC ABG pO2 Sodium 130 L Potassium 3.5 L Chloride 92.3 L Carbon Dioxide 17 L BUN 27 H Creatinine 2.2 H Glucose 535 H* POC Glucose Lactic Acid Calcium 7.0 L Phosphorus Magnesium Total Bilirubin AST ALT Alkaline Phosphatase 173 H Troponin T C-Reactive Protein Total Protein 5.1 L Albumin 2.6 L Triglycerides LDL Cholesterol Direct HDL Cholesterol Urine WBC (Auto) Urine Creatinine 12/20/17 12/21/17 12/21/17 23:35 01:11 01:11 WBC Hgb Hct MCV MCH RDW Plt Count Lymph % (Auto) [place] % (Auto) [place] # Seg Neutrophils % Seg Neuts % (Manual) Lymphocytes % (Manual) Seg Neutrophils # Seg Neutrophils # Man Lymphocytes # (Manual) PT INR POC ABG pH POC ABG pCO2 POC ABG pO2 Sodium Potassium Chloride Carbon Dioxide BUN Creatinine Glucose POC Glucose Lactic Acid 8.30 H* 8.10 H* Calcium Phosphorus 1.90 L Magnesium 1.30 L Total Bilirubin AST ALT Alkaline Phosphatase Troponin T C-Reactive Protein Total Protein Albumin Triglycerides LDL Cholesterol Direct HDL Cholesterol Urine WBC (Auto) Urine Creatinine 12/21/17 12/21/17 12/21/17 01:11 01:50 02:09 WBC Hgb Hct MCV MCH RDW Plt Count Lymph % (Auto) [place] % (Auto) [place] # Seg Neutrophils % Seg Neuts % (Manual) Lymphocytes % (Manual) Seg Neutrophils # Seg Neutrophils # Man Lymphocytes # (Manual) PT INR POC ABG pH POC ABG pCO2 POC ABG pO2 Sodium 133 L Potassium 3.3 L Chloride 97.9 L Carbon Dioxide 15 L BUN 26 H Creatinine 2.1 H Glucose 504 H* POC Glucose 391 H Lactic Acid Calcium 6.4 L Phosphorus Magnesium Total Bilirubin AST ALT Alkaline Phosphatase Troponin T C-Reactive Protein Total Protein Albumin Triglycerides LDL Cholesterol Direct HDL Cholesterol Urine WBC (Auto) 38.0 H Urine Creatinine 12/21/17 12/21/17 12/21/17 03:10 03:26 05:15 WBC Hgb Hct MCV MCH RDW Plt Count Lymph % (Auto) [place] % (Auto) [place] # Seg Neutrophils % Seg Neuts % (Manual) Lymphocytes % (Manual) Seg Neutrophils # Seg Neutrophils # Man Lymphocytes # (Manual) PT INR POC ABG pH POC ABG pCO2 POC ABG pO2 Sodium 135 L Potassium 3.3 L Chloride Carbon Dioxide 14 L BUN 25 H Creatinine 1.9 H Glucose 443 H POC Glucose 389 H 407 H Lactic Acid Calcium 6.0 L Phosphorus Magnesium Total Bilirubin AST ALT Alkaline Phosphatase Troponin T C-Reactive Protein Total Protein Albumin Triglycerides LDL Cholesterol Direct HDL Cholesterol Urine WBC (Auto) Urine Creatinine 12/21/17 12/21/17 12/21/17 06:00 06:00 06:09 WBC Hgb Hct MCV MCH RDW Plt Count Lymph % (Auto) [place] % (Auto) [place] # Seg Neutrophils % Seg Neuts % (Manual) Lymphocytes % (Manual) Seg Neutrophils # Seg Neutrophils # Man Lymphocytes # (Manual) PT INR POC ABG pH POC ABG pCO2 POC ABG pO2 Sodium Potassium 3.4 L Chloride Carbon Dioxide 12 L BUN 28 H Creatinine 1.9 H Glucose 283 H POC Glucose 326 H Lactic Acid 7.90 H* Calcium 6.0 L Phosphorus Magnesium Total Bilirubin AST ALT Alkaline Phosphatase Troponin T C-Reactive Protein Total Protein Albumin Triglycerides LDL Cholesterol Direct HDL Cholesterol Urine WBC (Auto) Urine Creatinine 12/21/17 12/21/17 12/21/17 07:23 08:16 08:44 WBC Hgb Hct MCV MCH RDW Plt Count Lymph % (Auto) [place] % (Auto) [place] # Seg Neutrophils % Seg Neuts % (Manual) Lymphocytes % (Manual) Seg Neutrophils # Seg Neutrophils # Man Lymphocytes # (Manual) PT INR POC ABG pH POC ABG pCO2 POC ABG pO2 Sodium Potassium 3.3 L Chloride 107.8 H Carbon Dioxide 14 L BUN 29 H Creatinine 2.0 H Glucose 140 H POC Glucose 267 H 257 H Lactic Acid Calcium 6.2 L Phosphorus Magnesium Total Bilirubin AST ALT Alkaline Phosphatase Troponin T C-Reactive Protein Total Protein Albumin Triglycerides LDL Cholesterol Direct HDL Cholesterol Urine WBC (Auto) Urine Creatinine 12/21/17 12/21/17 12/21/17 08:44 08:44 09:02 WBC Hgb Hct MCV MCH RDW Plt Count Lymph % (Auto) [place] % (Auto) [place] # Seg Neutrophils % Seg Neuts % (Manual) Lymphocytes % (Manual) Seg Neutrophils # Seg Neutrophils # Man Lymphocytes # (Manual) PT INR POC ABG pH POC ABG pCO2 POC ABG pO2 Sodium Potassium Chloride Carbon Dioxide BUN Creatinine Glucose POC Glucose 211 H Lactic Acid 6.40 H* Calcium Phosphorus Magnesium Total Bilirubin AST ALT Alkaline Phosphatase Troponin T C-Reactive Protein 27.10 H Total Protein Albumin Triglycerides LDL Cholesterol Direct HDL Cholesterol Urine WBC (Auto) Urine Creatinine 12/21/17 12/21/17 12/21/17 09:35 10:27 11:57 WBC Hgb Hct MCV MCH RDW Plt Count Lymph % (Auto) [place] % (Auto) [place] # Seg Neutrophils % Seg Neuts % (Manual) Lymphocytes % (Manual) Seg Neutrophils # Seg Neutrophils # Man Lymphocytes # (Manual) PT INR POC ABG pH POC ABG pCO2 POC ABG pO2 Sodium Potassium Chloride Carbon Dioxide BUN Creatinine Glucose POC Glucose 182 H 142 H 134 H Lactic Acid Calcium Phosphorus Magnesium Total Bilirubin AST ALT Alkaline Phosphatase Troponin T C-Reactive Protein Total Protein Albumin Triglycerides LDL Cholesterol Direct HDL Cholesterol Urine WBC (Auto) Urine Creatinine 12/21/17 12/21/17 12/21/17 13:27 15:20 17:39 WBC Hgb Hct MCV MCH RDW Plt Count Lymph % (Auto) [place] % (Auto) [place] # Seg Neutrophils % Seg Neuts % (Manual) Lymphocytes % (Manual) Seg Neutrophils # Seg Neutrophils # Man Lymphocytes # (Manual) PT INR POC ABG pH POC ABG pCO2 POC ABG pO2 Sodium Potassium Chloride Carbon Dioxide BUN Creatinine Glucose POC Glucose 161 H 189 H Lactic Acid Calcium Phosphorus Magnesium Total Bilirubin AST ALT Alkaline Phosphatase Troponin T 0.087 H C-Reactive Protein Total Protein Albumin Triglycerides 202 H LDL Cholesterol Direct 6 L HDL Cholesterol 10 L Urine WBC (Auto) Urine Creatinine 12/21/17 12/21/17 12/21/17 17:47 19:32 20:56 WBC Hgb Hct MCV MCH RDW Plt Count Lymph % (Auto) [place] % (Auto) [place] # Seg Neutrophils % Seg Neuts % (Manual) Lymphocytes % (Manual) Seg Neutrophils # Seg Neutrophils # Man Lymphocytes # (Manual) PT INR POC ABG pH POC ABG pCO2 POC ABG pO2 Sodium Potassium Chloride 107.2 H Carbon Dioxide 14 L BUN 32 H Creatinine 2.4 H Glucose 171 H POC Glucose 160 H 136 H Lactic Acid Calcium 6.6 L Phosphorus Magnesium Total Bilirubin AST ALT Alkaline Phosphatase Troponin T C-Reactive Protein Total Protein Albumin Triglycerides LDL Cholesterol Direct HDL Cholesterol Urine WBC (Auto) Urine Creatinine 12/21/17 12/22/17 12/22/17 21:12 00:29 03:08 WBC Hgb Hct MCV MCH RDW Plt Count Lymph % (Auto) [place] % (Auto) [place] # Seg Neutrophils % Seg Neuts % (Manual) Lymphocytes % (Manual) Seg Neutrophils # Seg Neutrophils # Man Lymphocytes # (Manual) PT INR POC ABG pH 7.152 L 7.241 L POC ABG pCO2 28.1 L POC ABG pO2 62 L 113 H Sodium Potassium Chloride Carbon Dioxide BUN Creatinine Glucose POC Glucose 109 H Lactic Acid Calcium Phosphorus Magnesium Total Bilirubin AST ALT Alkaline Phosphatase Troponin T C-Reactive Protein Total Protein Albumin Triglycerides LDL Cholesterol Direct HDL Cholesterol Urine WBC (Auto) Urine Creatinine 12/22/17 12/22/17 12/22/17 04:29 04:30 04:30 WBC 21.9 H Hgb Hct MCV 77 L MCH 25 L RDW 16.6 H Plt Count 57 L Lymph % (Auto) [place] % (Auto) [place] # Seg Neutrophils % Seg Neuts % (Manual) Lymphocytes % (Manual) Seg Neutrophils # Seg Neutrophils # Man Lymphocytes # (Manual) PT INR POC ABG pH POC ABG pCO2 POC ABG pO2 Sodium Potassium Chloride Carbon Dioxide 14 L BUN 37 H Creatinine 2.7 H Glucose 145 H POC Glucose 139 H Lactic Acid Calcium 6.4 L Phosphorus Magnesium Total Bilirubin AST ALT Alkaline Phosphatase Troponin T C-Reactive Protein Total Protein Albumin Triglycerides LDL Cholesterol Direct HDL Cholesterol Urine WBC (Auto) Urine Creatinine 12/22/17 12/22/17 12/22/17 04:30 05:24 05:54 WBC Hgb Hct MCV MCH RDW Plt Count Lymph % (Auto) [place] % (Auto) [place] # Seg Neutrophils % Seg Neuts % (Manual) Lymphocytes % (Manual) Seg Neutrophils # Seg Neutrophils # Man Lymphocytes # (Manual) PT INR POC ABG pH POC ABG pCO2 POC ABG pO2 Sodium Potassium Chloride Carbon Dioxide BUN Creatinine Glucose POC Glucose 144 H 145 H Lactic Acid 3.30 H* Calcium Phosphorus Magnesium Total Bilirubin AST ALT Alkaline Phosphatase Troponin T C-Reactive Protein Total Protein Albumin Triglycerides LDL Cholesterol Direct HDL Cholesterol Urine WBC (Auto) Urine Creatinine 12/22/17 12/22/17 12/22/17 07:56 07:56 10:09 WBC Hgb Hct MCV MCH RDW Plt Count Lymph % (Auto) [place] % (Auto) [place] # Seg Neutrophils % Seg Neuts % (Manual) Lymphocytes % (Manual) Seg Neutrophils # Seg Neutrophils # Man Lymphocytes # (Manual) PT INR POC ABG pH 7.180 L POC ABG pCO2 POC ABG pO2 117 H Sodium Potassium Chloride Carbon Dioxide 14 L BUN 39 H Creatinine 2.9 H Glucose 174 H POC Glucose Lactic Acid 3.00 H* Calcium 6.7 L Phosphorus Magnesium Total Bilirubin AST ALT Alkaline Phosphatase Troponin T C-Reactive Protein Total Protein Albumin Triglycerides LDL Cholesterol Direct HDL Cholesterol Urine WBC (Auto) Urine Creatinine 12/22/17 12/22/17 12/22/17 10:12 12:19 14:23 WBC Hgb Hct MCV MCH RDW Plt Count Lymph % (Auto) [place] % (Auto) [place] # Seg Neutrophils % Seg Neuts % (Manual) Lymphocytes % (Manual) Seg Neutrophils # Seg Neutrophils # Man Lymphocytes # (Manual) PT INR POC ABG pH 7.241 L 7.285 L POC ABG pCO2 33.9 L 29.9 L POC ABG pO2 45 L 117 H Sodium Potassium Chloride Carbon Dioxide BUN Creatinine Glucose POC Glucose 185 H Lactic Acid Calcium Phosphorus Magnesium Total Bilirubin AST ALT Alkaline Phosphatase Troponin T C-Reactive Protein Total Protein Albumin Triglycerides LDL Cholesterol Direct HDL Cholesterol Urine WBC (Auto) Urine Creatinine 12/22/17 12/22/17 12/22/17 14:27 17:22 19:58 WBC Hgb Hct MCV MCH RDW Plt Count Lymph % (Auto) [place] % (Auto) [place] # Seg Neutrophils % Seg Neuts % (Manual) Lymphocytes % (Manual) Seg Neutrophils # Seg Neutrophils # Man Lymphocytes # (Manual) PT INR POC ABG pH 7.338 L POC ABG pCO2 27.6 L POC ABG pO2 167 H Sodium Potassium Chloride Carbon Dioxide BUN Creatinine Glucose POC Glucose 220 H 197 H Lactic Acid Calcium Phosphorus Magnesium Total Bilirubin AST ALT Alkaline Phosphatase Troponin T C-Reactive Protein Total Protein Albumin Triglycerides LDL Cholesterol Direct HDL Cholesterol Urine WBC (Auto) Urine Creatinine 12/22/17 12/23/17 12/23/17 21:18 05:30 05:30 WBC 14.5 H Hgb Hct MCV 75 L MCH 26 L RDW 16.7 H Plt Count 26 L Lymph % (Auto) [place] % (Auto) [place] # Seg Neutrophils % Seg Neuts % (Manual) Lymphocytes % (Manual) Seg Neutrophils # Seg Neutrophils # Man Lymphocytes # (Manual) PT INR POC ABG pH POC ABG pCO2 POC ABG pO2 Sodium Potassium Chloride Carbon Dioxide 15 L BUN 49 H Creatinine 3.5 H Glucose 123 H POC Glucose 189 H Lactic Acid Calcium 6.7 L Phosphorus Magnesium Total Bilirubin 3.60 H AST 93 H ALT 58 H Alkaline Phosphatase Troponin T C-Reactive Protein Total Protein 4.5 L Albumin 2.0 L Triglycerides LDL Cholesterol Direct HDL Cholesterol Urine WBC (Auto) Urine Creatinine 12/23/17 12/23/17 12/23/17 05:30 12:31 15:13 WBC Hgb Hct MCV MCH RDW Plt Count Lymph % (Auto) [place] % (Auto) [place] # Seg Neutrophils % Seg Neuts % (Manual) Lymphocytes % (Manual) Seg Neutrophils # Seg Neutrophils # Man Lymphocytes # (Manual) PT INR POC ABG pH POC ABG pCO2 POC ABG pO2 Sodium Potassium Chloride Carbon Dioxide BUN Creatinine Glucose POC Glucose 141 H Lactic Acid Calcium Phosphorus Magnesium Total Bilirubin AST ALT Alkaline Phosphatase Troponin T C-Reactive Protein 38.70 H Total Protein Albumin Triglycerides LDL Cholesterol Direct HDL Cholesterol Urine WBC (Auto) Urine Creatinine 65.1 H 12/23/17 12/24/17 12/24/17 18:53 00:13 05:15 WBC 14.7 H Hgb Hct MCV 76 L MCH 25 L RDW 16.6 H Plt Count 20 L Lymph % (Auto) [place] % (Auto) [place] # Seg Neutrophils % Seg Neuts % (Manual) Lymphocytes % (Manual) Seg Neutrophils # Seg Neutrophils # Man Lymphocytes # (Manual) PT INR POC ABG pH POC ABG pCO2 POC ABG pO2 Sodium Potassium Chloride Carbon Dioxide BUN Creatinine Glucose POC Glucose 205 H 207 H Lactic Acid Calcium Phosphorus Magnesium Total Bilirubin AST ALT Alkaline Phosphatase Troponin T C-Reactive Protein Total Protein Albumin Triglycerides LDL Cholesterol Direct HDL Cholesterol Urine WBC (Auto) Urine Creatinine 12/24/17 12/24/17 12/24/17 05:15 05:51 08:31 WBC Hgb Hct MCV MCH RDW Plt Count Lymph % (Auto) [place] % (Auto) [place] # Seg Neutrophils % Seg Neuts % (Manual) Lymphocytes % (Manual) Seg Neutrophils # Seg Neutrophils # Man Lymphocytes # (Manual) PT INR POC ABG pH POC ABG pCO2 POC ABG pO2 Sodium Potassium Chloride 107.2 H Carbon Dioxide 19 L BUN 67 H Creatinine 4.0 H Glucose 150 H POC Glucose 176 H 251 H Lactic Acid Calcium 7.2 L Phosphorus Magnesium Total Bilirubin 5.60 H AST 47 H ALT Alkaline Phosphatase Troponin T C-Reactive Protein Total Protein 4.3 L Albumin 1.9 L Triglycerides LDL Cholesterol Direct HDL Cholesterol Urine WBC (Auto) Urine Creatinine 12/24/17 12/24/17 12/24/17 11:53 17:19 21:16 WBC Hgb Hct MCV MCH RDW Plt Count Lymph % (Auto) [place] % (Auto) [place] # Seg Neutrophils % Seg Neuts % (Manual) Lymphocytes % (Manual) Seg Neutrophils # Seg Neutrophils # Man Lymphocytes # (Manual) PT INR POC ABG pH POC ABG pCO2 POC ABG pO2 Sodium Potassium Chloride Carbon Dioxide BUN Creatinine Glucose POC Glucose 274 H 302 H 345 H Lactic Acid Calcium Phosphorus Magnesium Total Bilirubin AST ALT Alkaline Phosphatase Troponin T C-Reactive Protein Total Protein Albumin Triglycerides LDL Cholesterol Direct HDL Cholesterol Urine WBC (Auto) Urine Creatinine 12/25/17 12/25/17 12/25/17 05:55 05:55 05:55 WBC 13.7 H Hgb Hct 30.2 L MCV 75 L MCH 25 L RDW 17.2 H Plt Count 24 L Lymph % (Auto) [place] % (Auto) [place] # Seg Neutrophils % Seg Neuts % (Manual) 85.0 H Lymphocytes % (Manual) 3.0 L Seg Neutrophils # Seg Neutrophils # Man 11.6 H Lymphocytes # (Manual) 0.4 L PT INR POC ABG pH POC ABG pCO2 POC ABG pO2 Sodium Potassium 3.5 L Chloride Carbon Dioxide BUN 81 H Creatinine 3.9 H Glucose 471 H POC Glucose Lactic Acid Calcium 7.5 L Phosphorus Magnesium Total Bilirubin 7.70 H AST ALT Alkaline Phosphatase 234 H Troponin T C-Reactive Protein 19.90 H Total Protein 4.9 L Albumin 1.6 L Triglycerides LDL Cholesterol Direct HDL Cholesterol Urine WBC (Auto) Urine Creatinine 12/25/17 12/25/17 12/25/17 08:21 09:41 12:14 WBC Hgb Hct MCV MCH RDW Plt Count Lymph % (Auto) [place] % (Auto) [place] # Seg Neutrophils % Seg Neuts % (Manual) Lymphocytes % (Manual) Seg Neutrophils # Seg Neutrophils # Man Lymphocytes # (Manual) PT INR POC ABG pH POC ABG pCO2 POC ABG pO2 Sodium Potassium Chloride Carbon Dioxide BUN Creatinine Glucose POC Glucose 468 H 405 H Lactic Acid 2.10 H* Calcium Phosphorus Magnesium Total Bilirubin AST ALT Alkaline Phosphatase Troponin T C-Reactive Protein Total Protein Albumin Triglycerides LDL Cholesterol Direct HDL Cholesterol Urine WBC (Auto) Urine Creatinine 12/25/17 12/25/17 12/26/17 16:13 21:46 06:54 WBC 16.6 H Hgb 10.0 L Hct 29.3 L MCV 74 L MCH 25 L RDW 16.5 H Plt Count 27 L Lymph % (Auto) [place] % (Auto) [place] # Seg Neutrophils % Seg Neuts % (Manual) Lymphocytes % (Manual) Seg Neutrophils # Seg Neutrophils # Man Lymphocytes # (Manual) PT INR POC ABG pH POC ABG pCO2 POC ABG pO2 Sodium Potassium Chloride Carbon Dioxide BUN Creatinine Glucose POC Glucose 264 H 249 H Lactic Acid Calcium Phosphorus Magnesium Total Bilirubin AST ALT Alkaline Phosphatase Troponin T C-Reactive Protein Total Protein Albumin Triglycerides LDL Cholesterol Direct HDL Cholesterol Urine WBC (Auto) Urine Creatinine 12/26/17 12/26/17 12/26/17 06:54 07:57 11:36 WBC Hgb Hct MCV MCH RDW Plt Count Lymph % (Auto) [place] % (Auto) [place] # Seg Neutrophils % Seg Neuts % (Manual) Lymphocytes % (Manual) Seg Neutrophils # Seg Neutrophils # Man Lymphocytes # (Manual) PT INR POC ABG pH POC ABG pCO2 POC ABG pO2 Sodium Potassium 3.0 L Chloride 97.7 L Carbon Dioxide 32 H BUN 78 H Creatinine 3.8 H Glucose 353 H POC Glucose 384 H 274 H Lactic Acid Calcium 7.2 L Phosphorus Magnesium Total Bilirubin 6.00 H AST 50 H ALT Alkaline Phosphatase 265 H Troponin T C-Reactive Protein Total Protein 4.8 L Albumin 1.4 L Triglycerides LDL Cholesterol Direct HDL Cholesterol Urine WBC (Auto) Urine Creatinine 12/26/17 12/26/17 12/27/17 18:33 21:21 02:04 WBC Hgb Hct MCV MCH RDW Plt Count Lymph % (Auto) [place] % (Auto) [place] # Seg Neutrophils % Seg Neuts % (Manual) Lymphocytes % (Manual) Seg Neutrophils # Seg Neutrophils # Man Lymphocytes # (Manual) PT INR POC ABG pH POC ABG pCO2 POC ABG pO2 Sodium Potassium Chloride Carbon Dioxide BUN Creatinine Glucose POC Glucose 198 H 182 H 200 H Lactic Acid Calcium Phosphorus Magnesium Total Bilirubin AST ALT Alkaline Phosphatase Troponin T C-Reactive Protein Total Protein Albumin Triglycerides LDL Cholesterol Direct HDL Cholesterol Urine WBC (Auto) Urine Creatinine 12/27/17 12/27/17 12/27/17 04:07 05:24 06:40 WBC 16.8 H Hgb 9.7 L Hct 29.5 L MCV 74 L MCH 24 L RDW 16.9 H Plt Count 43 L Lymph % (Auto) [place] % (Auto) [place] # Seg Neutrophils % Seg Neuts % (Manual) Lymphocytes % (Manual) Seg Neutrophils # Seg Neutrophils # Man Lymphocytes # (Manual) PT INR POC ABG pH 7.599 H POC ABG pCO2 POC ABG pO2 108 H Sodium Potassium Chloride Carbon Dioxide BUN Creatinine Glucose POC Glucose 156 H Lactic Acid Calcium Phosphorus Magnesium Total Bilirubin AST ALT Alkaline Phosphatase Troponin T C-Reactive Protein Total Protein Albumin Triglycerides LDL Cholesterol Direct HDL Cholesterol Urine WBC (Auto) Urine Creatinine 12/27/17 12/27/17 12/27/17 06:40 11:03 15:50 WBC Hgb Hct MCV MCH RDW Plt Count Lymph % (Auto) [place] % (Auto) [place] # Seg Neutrophils % Seg Neuts % (Manual) Lymphocytes % (Manual) Seg Neutrophils # Seg Neutrophils # Man Lymphocytes # (Manual) PT INR POC ABG pH POC ABG pCO2 POC ABG pO2 Sodium Potassium 3.5 L Chloride Carbon Dioxide 36 H BUN 81 H Creatinine 3.8 H Glucose 153 H POC Glucose 220 H 275 H Lactic Acid Calcium 7.6 L Phosphorus Magnesium Total Bilirubin AST ALT Alkaline Phosphatase Troponin T C-Reactive Protein Total Protein Albumin Triglycerides LDL Cholesterol Direct HDL Cholesterol Urine WBC (Auto) Urine Creatinine 12/27/17 12/27/17 12/28/17 17:23 21:44 02:05 WBC Hgb Hct MCV MCH RDW Plt Count Lymph % (Auto) [place] % (Auto) [place] # Seg Neutrophils % Seg Neuts % (Manual) Lymphocytes % (Manual) Seg Neutrophils # Seg Neutrophils # Man Lymphocytes # (Manual) PT INR POC ABG pH POC ABG pCO2 POC ABG pO2 Sodium Potassium Chloride Carbon Dioxide BUN Creatinine Glucose POC Glucose 256 H 180 H 148 H Lactic Acid Calcium Phosphorus Magnesium Total Bilirubin AST ALT Alkaline Phosphatase Troponin T C-Reactive Protein Total Protein Albumin Triglycerides LDL Cholesterol Direct HDL Cholesterol Urine WBC (Auto) Urine Creatinine 12/28/17 12/28/17 12/28/17 04:45 05:00 08:14 WBC Hgb Hct MCV MCH RDW Plt Count Lymph % (Auto) [place] % (Auto) [place] # Seg Neutrophils % Seg Neuts % (Manual) Lymphocytes % (Manual) Seg Neutrophils # Seg Neutrophils # Man Lymphocytes # (Manual) PT INR POC ABG pH POC ABG pCO2 POC ABG pO2 Sodium 147 H Potassium 3.3 L Chloride Carbon Dioxide 32 H BUN 82 H Creatinine 3.9 H Glucose 212 H POC Glucose 205 H 180 H Lactic Acid Calcium 7.6 L Phosphorus Magnesium Total Bilirubin AST ALT Alkaline Phosphatase Troponin T C-Reactive Protein Total Protein Albumin Triglycerides LDL Cholesterol Direct HDL Cholesterol Urine WBC (Auto) Urine Creatinine 12/28/17 12/28/17 12/28/17 12:07 13:16 16:28 WBC Hgb Hct MCV MCH RDW Plt Count Lymph % (Auto) [place] % (Auto) [place] # Seg Neutrophils % Seg Neuts % (Manual) Lymphocytes % (Manual) Seg Neutrophils # Seg Neutrophils # Man Lymphocytes # (Manual) PT 16.4 H INR 1.25 H POC ABG pH POC ABG pCO2 POC ABG pO2 Sodium Potassium Chloride Carbon Dioxide BUN Creatinine Glucose POC Glucose 213 H 126 H Lactic Acid Calcium Phosphorus Magnesium Total Bilirubin AST ALT Alkaline Phosphatase Troponin T C-Reactive Protein Total Protein Albumin Triglycerides LDL Cholesterol Direct HDL Cholesterol Urine WBC (Auto) Urine Creatinine 12/28/17 12/29/17 12/29/17 21:41 06:36 10:02 WBC 17.1 H Hgb 9.3 L Hct 28.5 L MCV 76 L MCH 25 L RDW 17.2 H Plt Count 107 L D Lymph % (Auto) 6.8 L [place] % (Auto) 7.4 H [place] # 1.3 H Seg Neutrophils % 85.0 H Seg Neuts % (Manual) Lymphocytes % (Manual) Seg Neutrophils # 14.5 H Seg Neutrophils # Man Lymphocytes # (Manual) PT INR POC ABG pH POC ABG pCO2 POC ABG pO2 Sodium Potassium Chloride Carbon Dioxide BUN Creatinine Glucose POC Glucose 201 H 243 H Lactic Acid Calcium Phosphorus Magnesium Total Bilirubin AST ALT Alkaline Phosphatase Troponin T C-Reactive Protein Total Protein Albumin Triglycerides LDL Cholesterol Direct HDL Cholesterol Urine WBC (Auto) Urine Creatinine 12/29/17 12/29/17 12/29/17 10:02 11:49 17:33 WBC Hgb Hct MCV MCH RDW Plt Count Lymph % (Auto) [place] % (Auto) [place] # Seg Neutrophils % Seg Neuts % (Manual) Lymphocytes % (Manual) Seg Neutrophils # Seg Neutrophils # Man Lymphocytes # (Manual) PT INR POC ABG pH POC ABG pCO2 POC ABG pO2 Sodium 151 H Potassium 3.3 L Chloride 108.8 H Carbon Dioxide BUN 81 H Creatinine 3.8 H Glucose 166 H POC Glucose 207 H 110 H Lactic Acid Calcium 7.7 L Phosphorus Magnesium Total Bilirubin 2.40 H AST 48 H ALT Alkaline Phosphatase 239 H Troponin T C-Reactive Protein Total Protein 5.5 L Albumin 1.7 L Triglycerides LDL Cholesterol Direct HDL Cholesterol Urine WBC (Auto) Urine Creatinine
--- NOTE | 2017-12-29 19:29 | XRay Report ---
FINAL REPORT EXAM: XR CHEST 1V AP HISTORY: right pleural effusion, recent thora TECHNIQUE: Chest single portable PRIORS: Comparison is December 21, 2017 FINDINGS: There is right IJ central venous catheter with tip at the SVC. There is been placement of a feeding tube distal end descending below the diaphragm. There is a moderate left pleural effusion new since the prior exam. No confluent pulmonary infiltrates are identified. There is no evidence for pneumothorax. IMPRESSION: Moderate left pleural effusion Right IJ catheter in satisfactory position Feeding tube. Distal end not visualized
[2017-12-29] MEDS: LANTUS SUB-Q SCH (22:17)
[2017-12-30] MEDS: VANCOMYCIN PO PO SCH ×5 (00:59→23:48)
[2017-12-30] MEDS: HumuLIN R SUB-Q SCH ×6 (02:00→23:52)
[2017-12-30] MEDS: NACL 0.45% 1000 ML 1,000 ML IV SCH (05:39)
[2017-12-30 05:50] LABS: Basophils # (Auto) 0.1 K/mm3 (0.0-0.1); Basophils % (Auto) 0.5 % (0.0-1.8); Eosinophils # (Auto) 0.2 K/mm3 (0.0-0.4); Hematocrit 26.7 % (30.3-42.9); Hemoglobin 9.1 gm/dl (10.1-14.3); Lymphocytes # (Auto) 1.2 K/mm3 (1.2-5.4); Lymphocytes % (Auto) 7.5 % (13.4-35.0); Mean Corpuscular HGB Conc 34 % (30-34); Mean Corpuscular Volume 74 fl (79-97); Monocytes # (Auto) 1.2 K/mm3 (0.0-0.8); Monocytes % (Auto) 7.5 % (0.0-7.3); Platelet Count 119 K/mm3 (140-440); Red Blood Count 3.63 M/mm3 (3.65-5.03); Red Cell Distribution Width 16.9 % (13.2-15.2)
[2017-12-30 05:51] LABS: Mean Corpuscular Hemoglobin 25 pg (28-32)
[2017-12-30 06:13] LABS: Albumin 1.5 g/dL (3.9-5); Calcium 7.5 mg/dL (8.4-10.2)
[2017-12-30] MEDS ORDERED: POTASSIUM CHLORIDE FEEDTUBE ONE ×2 (06:27→15:00)
--- NOTE | 2017-12-30 07:34 | Ultrasound Report ---
ULTRASOUND THORACENTESIS History: Bilateral pleural effusions. Description of procedure: Informed consent was obtained. 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 Sterile technique was utilized. 1% lidocaine for skin anesthesia. Using ultrasound guidance, a 5 Telugu centesis needle was advanced into the right pleural space. There was spontaneous return of clear yellow fluid. 540 cc of fluid were aspirated. 120 cc of fluid was sent to the lab for analysis. No complications. Impression: Successful ultrasound-guided right thoracentesis.
--- NOTE | 2017-12-30 09:10 | Progress Note ---
Assessment and Plan 1. Acute kidney injury: Vasomotor / hemodynamic MARLENE in the setting of septic shock. Renal function is better today. Monitor for TRAINING DEVELOPMENT SPECIALIST needs. Renal prognosis is guarded. 2. Septic shock: E.Coli bacteremia. Off Levophed. 3. Left hydronephrosis: Acute pyelonephritis. Improving. 4. Electrolytes: Replete K. Hypernatremia, continue water flushes. 5. DKA: Improving. 6. Acute Encephalopathy. 7. Thrombocytopenia: Improving. D/w her at the bedside. Subjective Date of service: 12/30/17 Principal diagnosis: septic shock Interval history: Patient was seen and examined at the bedside. Per she is doing better. Objective - Vital Signs Vital signs: Vital Signs - 12hr 12/29/17 12/30/17 12/30/17 22:00 01:02 04:31 Temperature 97.7 F 98.0 F Pulse Rate 84 95 H 89 Respiratory 20 18 Rate Blood Pressure 142/72 126/79 O2 Sat by Pulse 98 97 Oximetry 12/30/17 07:58 Temperature 98.4 F Pulse Rate 87 Respiratory 18 Rate Blood Pressure 151/80 O2 Sat by Pulse 98 Oximetry - General Appearance General appearance: well-developed, well-nourished, appears stated age, obese, other (no distres, NG tube) EENT: ATNC, PERRL, hearing intact Neck: supple Respiratory: Present: Clear to Ascultation Cardiology: regular, S1S2, no murmurs Gastrointestinal: normoactive bowel sounds, no tenderness, obese Neurologic: no focal deficit, no asterixis, confused Musculoskeletal: other (trace pedal edema noted) Psychiatric: cooperative - Lab 12/30/17 05:30 12/30/17 05:30 Most recent lab results Calcium 7.5 mg/dL (8.4-10.2) L 12/30/17 05:30 Phosphorus 3.50 mg/dL (2.5-4.5) 12/29/17 10:02 Magnesium 2.30 mg/dL (1.7-2.3) 12/29/17 10:02 Urine Creatinine 65.1 mg/dL (0.1-20.0) H 12/23/17 15:13 Urine Sodium 26 mmol/L 12/23/17 15:13
--- NOTE | 2017-12-30 09:46 | Progress Note ---
Assessment and Plan Assessment: 1) Severe Sepsis with septic +/- hypovolemic shock: still persistent leukocytosis. Intial Etiology most likely complicated UTI +/- GNR bacteremia +/ - DKA/dehydration. ? persistent leukocytosis ? HAP ? 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 -CT of the abdomen showed bibasilar infiltrates with enlarged fatty liver and the left hydronephrosis with hydroureter and air. -12/20 GNR 10-100K 3) E. coli bacteremia: from UTI -12/20 E coli 3 of 4 bottles - pansensitive -12/22 +ESBL E coli -12/28 no gus so far 4) Acute encephalopathy 5) MARLENE - not better 6) Acute respiratory failure - was on BIPAP 7) Uncontrolled diabetes with DKA 8) Hypertension 9) Diarrhea - ? reactive 10) Low platelets- from sepsis - worsening 11) Bilateral pneumonia ? aspiration ?HAP with bilateral mod pleural effusions seen in repeat CT s/p thoracentesis 12/30 ?transudative 12) Skin rash ? scabies S/P permethrin cream Plan: -continue meropenem renally dose D3 -continue isolation now for ESBL -if leukocytosis is not better consider repeat abd CT -monitor platelets and kidney function -upon discharge will need IV ertapenem x 14 days I am rounding on 01/01 Thank you for your consultation, will follow up with you. Guerda Nuñez MD Infectious Diseases Specialist [facility] M [phone] O [phone] Subjective Date of service: 12/30/17 Principal diagnosis: septic shock Interval history: Feels better, debilitated, No fever. Microbiology: Blood cultures: 12/20 E coli 3 of 4 bottles 12/22 ESBL E coli Urine cultures: 12/20 E coli 10-100K Current Antimicrobials: meropenem 12/28 Previous Antimicrobials: Zosyn Vancomycin meropenem cefepime 12/23-12/28 Objective - Exam Narrative Exam: General appearance: alert in NAD Eyes: anicteric sclerae, moist conjunctivae; no lid-lag; PERRLA HENT: Atraumatic; oropharynx +NGT Neck: Trachea midline; supple, no thyromegaly or lymphadenopathy Lungs: abeba scattered rhonchi CV: RRR, no murmurs Abdomen: Soft, non-tender Extremities: No peripheral edema or extremity lymphadenopathy Skin: Multiple nodular lesions in the arms, legs and abdominal wall Psych: alert talking. Neuro: alert Lines: amin - Constitutional Vitals: Vital Signs Temp Pulse Resp BP Pulse Ox 98.4 F 87 18 151/80 98 12/30/17 07:58 12/30/17 07:58 12/30/17 07:58 12/30/17 07:58 12/30/17 07:58 Temperature -Last 24 Hours Temperature 98.4 F Temperature 98.0 F Temperature 97.7 F Temperature 98.7 F Temperature 98.4 F Temperature 98.2 F - Labs CBC & Chem 7: 12/30/17 05:30 12/30/17 05:30 Labs: Abnormal lab results 12/29/17 12/29/17 12/29/17 Range/Units 10:02 10:02 11:49 WBC 17.1 H (4.5-11.0) K/mm3 RBC (3.65-5.03) M/mm3 Hgb 9.3 L (10.1-14.3) gm/dl Hct 28.5 L (30.3-42.9) % MCV 76 L (79-97) fl MCH 25 L (28-32) pg RDW 17.2 H (13.2-15.2) % Plt Count 107 L D (140-440) K/mm3 Lymph % (Auto) 6.8 L (13.4-35.0) % Bollinger % (Auto) 7.4 H (0.0-7.3) % Bollinger # 1.3 H (0.0-0.8) K/mm3 Seg Neutrophils % 85.0 H (40.0-70.0) % Seg Neutrophils # 14.5 H (1.8-7.7) K/mm3 Sodium 151 H (137-145) mmol/L Potassium 3.3 L (3.6-5.0) mmol/L Chloride 108.8 H (98-107) mmol/L BUN 81 H (7-17) mg/dL Creatinine 3.8 H (0.7-1.2) mg/dL Glucose 166 H (65-100) mg/dL POC Glucose 207 H (70-105) Calcium 7.7 L (8.4-10.2) mg/dL Total Bilirubin 2.40 H (0.1-1.2) mg/dL AST 48 H (5-40) units/L Alkaline Phosphatase 239 H (35-129) units/L Total Protein 5.5 L (6.3-8.2) g/dL Albumin 1.7 L (3.9-5) g/dL 12/29/17 12/29/17 12/30/17 Range/Units 17:33 22:21 01:08 WBC (4.5-11.0) K/mm3 RBC (3.65-5.03) M/mm3 Hgb (10.1-14.3) gm/dl Hct (30.3-42.9) % MCV (79-97) fl MCH (28-32) pg RDW (13.2-15.2) % Plt Count (140-440) K/mm3 Lymph % (Auto) (13.4-35.0) % Bollinger % (Auto) (0.0-7.3) % Bollinger # (0.0-0.8) K/mm3 Seg Neutrophils % (40.0-70.0) % Seg Neutrophils # (1.8-7.7) K/mm3 Sodium (137-145) mmol/L Potassium (3.6-5.0) mmol/L Chloride (98-107) mmol/L BUN (7-17) mg/dL Creatinine (0.7-1.2) mg/dL Glucose (65-100) mg/dL POC Glucose 110 H 242 H 161 H (70-105) Calcium (8.4-10.2) mg/dL Total Bilirubin (0.1-1.2) mg/dL AST (5-40) units/L Alkaline Phosphatase (35-129) units/L Total Protein (6.3-8.2) g/dL Albumin (3.9-5) g/dL 12/30/17 12/30/17 12/30/17 Range/Units 05:30 05:30 05:39 WBC 16.6 H (4.5-11.0) K/mm3 RBC 3.63 L (3.65-5.03) M/mm3 Hgb 9.1 L (10.1-14.3) gm/dl Hct 26.7 L (30.3-42.9) % MCV 74 L (79-97) fl MCH 25 L (28-32) pg RDW 16.9 H (13.2-15.2) % Plt Count 119 L (140-440) K/mm3 Lymph % (Auto) 7.5 L (13.4-35.0) % Bollinger % (Auto) 7.5 H (0.0-7.3) % Bollinger # 1.2 H (0.0-0.8) K/mm3 Seg Neutrophils % 83.5 H (40.0-70.0) % Seg Neutrophils # 13.9 H (1.8-7.7) K/mm3 Sodium 146 H (137-145) mmol/L Potassium 2.9 L* (3.6-5.0) mmol/L Chloride (98-107) mmol/L BUN 80 H (7-17) mg/dL Creatinine 3.5 H (0.7-1.2) mg/dL Glucose 160 H (65-100) mg/dL POC Glucose 113 H (70-105) Calcium 7.5 L (8.4-10.2) mg/dL Total Bilirubin 2.30 H (0.1-1.2) mg/dL AST 87 H (5-40) units/L Alkaline Phosphatase 403 H (35-129) units/L Total Protein 5.1 L (6.3-8.2) g/dL Albumin 1.5 L (3.9-5) g/dL // Range/Units 06:09 WBC (4.5-11.0) K/mm3 RBC (3.65-5.03) M/mm3 Hgb (10.1-14.3) gm/dl Hct (30.3-42.9) % MCV (79-97) fl MCH (28-32) pg RDW (13.2-15.2) % Plt Count (140-440) K/mm3 Lymph % (Auto) (13.4-35.0) % Bollinger % (Auto) (0.0-7.3) % Bollinger # (0.0-0.8) K/mm3 Seg Neutrophils % (40.0-70.0) % Seg Neutrophils # (1.8-7.7) K/mm3 Sodium (137-145) mmol/L Potassium (3.6-5.0) mmol/L Chloride (98-107) mmol/L BUN (7-17) mg/dL Creatinine (0.7-1.2) mg/dL Glucose (65-100) mg/dL POC Glucose 189 H (70-105) Calcium (8.4-10.2) mg/dL Total Bilirubin (0.1-1.2) mg/dL AST (5-40) units/L Alkaline Phosphatase (35-129) units/L Total Protein (6.3-8.2) g/dL Albumin (3.9-5) g/dL
[2017-12-30] MEDS: FOLVITE PO SCH (11:20)
[2017-12-30] MEDS: VITAMIN B-1 PO SCH (11:20)
[2017-12-30] MEDS: SODIUM CHLORIDE FLUSH SYRINGE 10 ML IV SCH ×2 (11:20→23:30)
[2017-12-30] MEDS: Centrum Liq PO SCH (11:20)
[2017-12-30] MEDS: MERREM 1,000 MG in NACL 0.9% 100 ML IV SCH (13:31)
[2017-12-30] MEDS: PEPCID PO SCH ×2 (13:36→23:29)
[2017-12-30] MEDS ORDERED: SIMPLE SYRUP FEEDTUBE PRN ×2 (14:44)
[2017-12-30] MEDS ORDERED: SODIUM BICARBONATE FEEDTUBE PRN (14:44)
[2017-12-30] MEDS ORDERED: PANCREAZE DR 10,500 UNIT FEEDTUBE PRN (14:44)
--- NOTE | 2017-12-30 16:02 | Progress Note ---
Assessment and Plan Severe sepsis with Septic shock, off vasopressor support Acute respiratory failure Bilateral pleural effusions DKA ESBL E.coli bacteremia/UTI Emphysematous pyelonephritis Uncontrolled Type 2 DM MARLENE Left Hydronephrosis Fatty Liver Abnormal LFTs, mixed picture Skin rash Acute encephalopathy, improving Gastroenteritis, viral Thrombocytopenia- multi factorial -Continue with current care -Diagnostic and therapeutic thoracentesis, follow pleural fluid results -Supplemental oxygen to keep O2 sats>90% -Antibiotics -Contact isolation -Continue with glycemic control, to keep glucose<180mg/dL -Resume tube feedings -Speech language pathologist to evaluate swallow function -Avoid nephrotoxic agents, renal monitoring. -PT/OT to evaluate and treat Discussed in detail with the patient and her daughter at the bedside Subjective Date of service: 12/30/17 Principal diagnosis: septic shock Interval history: Seen and examined. Vitals, labs, medications, chart reviewed. No acute overnight events. 24 hour events were reviewed No further episodes of vomiting. Making good amounts of urine s/p right thoracentesis, well tolerated Objective - Exam Narrative Exam: General appearance: alert in NAD Eyes: anicteric sclerae, moist conjunctivae; no lid-lag; PERRLA HENT: Atraumatic; oropharynx +NGT Neck: Trachea midline; supple, no thyromegaly or lymphadenopathy Lungs: abeba scattered rhonchi CV: RRR, no murmurs Abdomen: Soft, non-tender Extremities: No peripheral edema or extremity lymphadenopathy Skin: Multiple nodular lesions in the arms, legs and abdominal wall Psych: alert talking. Neuro: alert Lines: amin Vital Signs - 12hr 12/30/17 12/30/17 12/30/17 04:31 07:58 10:00 Temperature 98.0 F 98.4 F Pulse Rate 89 87 Pulse Rate [ Brachial] Respiratory 18 18 Rate Blood Pressure 126/79 151/80 O2 Sat by Pulse 97 98 98 Oximetry 12/30/17 12:52 Temperature 98.0 F Pulse Rate Pulse Rate [ 82 Brachial] Respiratory 18 Rate Blood Pressure 148/80 O2 Sat by Pulse 99 Oximetry CBC and BMP: 12/30/17 05:30 12/30/17 05:30 ABG, PT/INR, D-dimer: ABG POC ABG pH 7.599 (7.35-7.45) H 12/27/17 04:07 POC ABG pCO2 42.4 (35-45) 12/27/17 04:07 POC ABG pO2 108 (80-105) H 12/27/17 04:07 POC ABG HCO3 41.6 12/27/17 04:07 POC ABG Total CO2 43 12/27/17 04:07 POC ABG O2 Sat 99 12/27/17 04:07 PT/INR, D-dimer PT 16.4 Sec. (12.2-14.9) H 12/28/17 13:16 INR 1.25 (0.87-1.13) H 12/28/17 13:16 Abnormal lab findings: Abnormal Labs 12/20/17 12/20/17 12/20/17 23:35 23:35 23:35 WBC RBC Hgb Hct MCV 78 L MCH 26 L RDW 15.7 H Plt Count 77 L Lymph % (Auto) [place] % (Auto) [place] # Seg Neutrophils % Seg Neuts % (Manual) 76.0 H Lymphocytes % (Manual) 6.0 L Seg Neutrophils # Seg Neutrophils # Man 8.2 H Lymphocytes # (Manual) 0.6 L PT 18.5 H INR 1.45 H POC ABG pH POC ABG pCO2 POC ABG pO2 Sodium 130 L Potassium 3.5 L Chloride 92.3 L Carbon Dioxide 17 L BUN 27 H Creatinine 2.2 H Glucose 535 H* POC Glucose Lactic Acid Calcium 7.0 L Phosphorus Magnesium Total Bilirubin AST ALT Alkaline Phosphatase 173 H Troponin T C-Reactive Protein Total Protein 5.1 L Albumin 2.6 L Triglycerides LDL Cholesterol Direct HDL Cholesterol Urine WBC (Auto) Urine Creatinine 12/20/17 12/21/17 12/21/17 23:35 01:11 01:11 WBC RBC Hgb Hct MCV MCH RDW Plt Count Lymph % (Auto) [place] % (Auto) [place] # Seg Neutrophils % Seg Neuts % (Manual) Lymphocytes % (Manual) Seg Neutrophils # Seg Neutrophils # Man Lymphocytes # (Manual) PT INR POC ABG pH POC ABG pCO2 POC ABG pO2 Sodium Potassium Chloride Carbon Dioxide BUN Creatinine Glucose POC Glucose Lactic Acid 8.30 H* 8.10 H* Calcium Phosphorus 1.90 L Magnesium 1.30 L Total Bilirubin AST ALT Alkaline Phosphatase Troponin T C-Reactive Protein Total Protein Albumin Triglycerides LDL Cholesterol Direct HDL Cholesterol Urine WBC (Auto) Urine Creatinine 06/04/18 06/04/18 06/04/18 01:11 01:50 02:09 WBC RBC Hgb Hct MCV MCH RDW Plt Count Lymph % (Auto) [place] % (Auto) [place] # Seg Neutrophils % Seg Neuts % (Manual) Lymphocytes % (Manual) Seg Neutrophils # Seg Neutrophils # Man Lymphocytes # (Manual) PT INR POC ABG pH POC ABG pCO2 POC ABG pO2 Sodium 133 L Potassium 3.3 L Chloride 97.9 L Carbon Dioxide 15 L BUN 26 H Creatinine 2.1 H Glucose 504 H* POC Glucose 391 H Lactic Acid Calcium 6.4 L Phosphorus Magnesium Total Bilirubin AST ALT Alkaline Phosphatase Troponin T C-Reactive Protein Total Protein Albumin Triglycerides LDL Cholesterol Direct HDL Cholesterol Urine WBC (Auto) 38.0 H Urine Creatinine 12/21/17 12/21/17 12/21/17 03:10 03:26 05:15 WBC RBC Hgb Hct MCV MCH RDW Plt Count Lymph % (Auto) [place] % (Auto) [place] # Seg Neutrophils % Seg Neuts % (Manual) Lymphocytes % (Manual) Seg Neutrophils # Seg Neutrophils # Man Lymphocytes # (Manual) PT INR POC ABG pH POC ABG pCO2 POC ABG pO2 Sodium 135 L Potassium 3.3 L Chloride Carbon Dioxide 14 L BUN 25 H Creatinine 1.9 H Glucose 443 H POC Glucose 389 H 407 H Lactic Acid Calcium 6.0 L Phosphorus Magnesium Total Bilirubin AST ALT Alkaline Phosphatase Troponin T C-Reactive Protein Total Protein Albumin Triglycerides LDL Cholesterol Direct HDL Cholesterol Urine WBC (Auto) Urine Creatinine 12/21/17 12/21/17 12/21/17 06:00 06:00 06:09 WBC RBC Hgb Hct MCV MCH RDW Plt Count Lymph % (Auto) [place] % (Auto) [place] # Seg Neutrophils % Seg Neuts % (Manual) Lymphocytes % (Manual) Seg Neutrophils # Seg Neutrophils # Man Lymphocytes # (Manual) PT INR POC ABG pH POC ABG pCO2 POC ABG pO2 Sodium Potassium 3.4 L Chloride Carbon Dioxide 12 L BUN 28 H Creatinine 1.9 H Glucose 283 H POC Glucose 326 H Lactic Acid 7.90 H* Calcium 6.0 L Phosphorus Magnesium Total Bilirubin AST ALT Alkaline Phosphatase Troponin T C-Reactive Protein Total Protein Albumin Triglycerides LDL Cholesterol Direct HDL Cholesterol Urine WBC (Auto) Urine Creatinine 12/21/17 12/21/17 12/21/17 07:23 08:16 08:44 WBC RBC Hgb Hct MCV MCH RDW Plt Count Lymph % (Auto) [place] % (Auto) [place] # Seg Neutrophils % Seg Neuts % (Manual) Lymphocytes % (Manual) Seg Neutrophils # Seg Neutrophils # Man Lymphocytes # (Manual) PT INR POC ABG pH POC ABG pCO2 POC ABG pO2 Sodium Potassium 3.3 L Chloride 107.8 H Carbon Dioxide 14 L BUN 29 H Creatinine 2.0 H Glucose 140 H POC Glucose 267 H 257 H Lactic Acid Calcium 6.2 L Phosphorus Magnesium Total Bilirubin AST ALT Alkaline Phosphatase Troponin T C-Reactive Protein Total Protein Albumin Triglycerides LDL Cholesterol Direct HDL Cholesterol Urine WBC (Auto) Urine Creatinine 12/21/17 12/21/17 12/21/17 08:44 08:44 09:02 WBC RBC Hgb Hct MCV MCH RDW Plt Count Lymph % (Auto) [place] % (Auto) [place] # Seg Neutrophils % Seg Neuts % (Manual) Lymphocytes % (Manual) Seg Neutrophils # Seg Neutrophils # Man Lymphocytes # (Manual) PT INR POC ABG pH POC ABG pCO2 POC ABG pO2 Sodium Potassium Chloride Carbon Dioxide BUN Creatinine Glucose POC Glucose 211 H Lactic Acid 6.40 H* Calcium Phosphorus Magnesium Total Bilirubin AST ALT Alkaline Phosphatase Troponin T C-Reactive Protein 27.10 H Total Protein Albumin Triglycerides LDL Cholesterol Direct HDL Cholesterol Urine WBC (Auto) Urine Creatinine 12/21/17 12/21/17 12/21/17 09:35 10:27 11:57 WBC RBC Hgb Hct MCV MCH RDW Plt Count Lymph % (Auto) [place] % (Auto) [place] # Seg Neutrophils % Seg Neuts % (Manual) Lymphocytes % (Manual) Seg Neutrophils # Seg Neutrophils # Man Lymphocytes # (Manual) PT INR POC ABG pH POC ABG pCO2 POC ABG pO2 Sodium Potassium Chloride Carbon Dioxide BUN Creatinine Glucose POC Glucose 182 H 142 H 134 H Lactic Acid Calcium Phosphorus Magnesium Total Bilirubin AST ALT Alkaline Phosphatase Troponin T C-Reactive Protein Total Protein Albumin Triglycerides LDL Cholesterol Direct HDL Cholesterol Urine WBC (Auto) Urine Creatinine 12/21/17 12/21/17 12/21/17 13:27 15:20 17:39 WBC RBC Hgb Hct MCV MCH RDW Plt Count Lymph % (Auto) [place] % (Auto) [place] # Seg Neutrophils % Seg Neuts % (Manual) Lymphocytes % (Manual) Seg Neutrophils # Seg Neutrophils # Man Lymphocytes # (Manual) PT INR POC ABG pH POC ABG pCO2 POC ABG pO2 Sodium Potassium Chloride Carbon Dioxide BUN Creatinine Glucose POC Glucose 161 H 189 H Lactic Acid Calcium Phosphorus Magnesium Total Bilirubin AST ALT Alkaline Phosphatase Troponin T 0.087 H C-Reactive Protein Total Protein Albumin Triglycerides 202 H LDL Cholesterol Direct 6 L HDL Cholesterol 10 L Urine WBC (Auto) Urine Creatinine 12/21/17 12/21/17 12/21/17 17:47 19:32 20:56 WBC RBC Hgb Hct MCV MCH RDW Plt Count Lymph % (Auto) [place] % (Auto) [place] # Seg Neutrophils % Seg Neuts % (Manual) Lymphocytes % (Manual) Seg Neutrophils # Seg Neutrophils # Man Lymphocytes # (Manual) PT INR POC ABG pH POC ABG pCO2 POC ABG pO2 Sodium Potassium Chloride 107.2 H Carbon Dioxide 14 L BUN 32 H Creatinine 2.4 H Glucose 171 H POC Glucose 160 H 136 H Lactic Acid Calcium 6.6 L Phosphorus Magnesium Total Bilirubin AST ALT Alkaline Phosphatase Troponin T C-Reactive Protein Total Protein Albumin Triglycerides LDL Cholesterol Direct HDL Cholesterol Urine WBC (Auto) Urine Creatinine 12/21/17 12/22/17 12/22/17 21:12 00:29 03:08 WBC RBC Hgb Hct MCV MCH RDW Plt Count Lymph % (Auto) [place] % (Auto) [place] # Seg Neutrophils % Seg Neuts % (Manual) Lymphocytes % (Manual) Seg Neutrophils # Seg Neutrophils # Man Lymphocytes # (Manual) PT INR POC ABG pH 7.152 L 7.241 L POC ABG pCO2 28.1 L POC ABG pO2 62 L 113 H Sodium Potassium Chloride Carbon Dioxide BUN Creatinine Glucose POC Glucose 109 H Lactic Acid Calcium Phosphorus Magnesium Total Bilirubin AST ALT Alkaline Phosphatase Troponin T C-Reactive Protein Total Protein Albumin Triglycerides LDL Cholesterol Direct HDL Cholesterol Urine WBC (Auto) Urine Creatinine 12/22/17 12/22/17 12/22/17 04:29 04:30 04:30 WBC 21.9 H RBC Hgb Hct MCV 77 L MCH 25 L RDW 16.6 H Plt Count 57 L Lymph % (Auto) [place] % (Auto) [place] # Seg Neutrophils % Seg Neuts % (Manual) Lymphocytes % (Manual) Seg Neutrophils # Seg Neutrophils # Man Lymphocytes # (Manual) PT INR POC ABG pH POC ABG pCO2 POC ABG pO2 Sodium Potassium Chloride Carbon Dioxide 14 L BUN 37 H Creatinine 2.7 H Glucose 145 H POC Glucose 139 H Lactic Acid Calcium 6.4 L Phosphorus Magnesium Total Bilirubin AST ALT Alkaline Phosphatase Troponin T C-Reactive Protein Total Protein Albumin Triglycerides LDL Cholesterol Direct HDL Cholesterol Urine WBC (Auto) Urine Creatinine 12/22/17 12/22/17 12/22/17 04:30 05:24 05:54 WBC RBC Hgb Hct MCV MCH RDW Plt Count Lymph % (Auto) [place] % (Auto) [place] # Seg Neutrophils % Seg Neuts % (Manual) Lymphocytes % (Manual) Seg Neutrophils # Seg Neutrophils # Man Lymphocytes # (Manual) PT INR POC ABG pH POC ABG pCO2 POC ABG pO2 Sodium Potassium Chloride Carbon Dioxide BUN Creatinine Glucose POC Glucose 144 H 145 H Lactic Acid 3.30 H* Calcium Phosphorus Magnesium Total Bilirubin AST ALT Alkaline Phosphatase Troponin T C-Reactive Protein Total Protein Albumin Triglycerides LDL Cholesterol Direct HDL Cholesterol Urine WBC (Auto) Urine Creatinine 12/22/17 12/22/17 12/22/17 07:56 07:56 10:09 WBC RBC Hgb Hct MCV MCH RDW Plt Count Lymph % (Auto) [place] % (Auto) [place] # Seg Neutrophils % Seg Neuts % (Manual) Lymphocytes % (Manual) Seg Neutrophils # Seg Neutrophils # Man Lymphocytes # (Manual) PT INR POC ABG pH 7.180 L POC ABG pCO2 POC ABG pO2 117 H Sodium Potassium Chloride Carbon Dioxide 14 L BUN 39 H Creatinine 2.9 H Glucose 174 H POC Glucose Lactic Acid 3.00 H* Calcium 6.7 L Phosphorus Magnesium Total Bilirubin AST ALT Alkaline Phosphatase Troponin T C-Reactive Protein Total Protein Albumin Triglycerides LDL Cholesterol Direct HDL Cholesterol Urine WBC (Auto) Urine Creatinine 12/22/17 12/22/17 12/22/17 10:12 12:19 14:23 WBC RBC Hgb Hct MCV MCH RDW Plt Count Lymph % (Auto) [place] % (Auto) [place] # Seg Neutrophils % Seg Neuts % (Manual) Lymphocytes % (Manual) Seg Neutrophils # Seg Neutrophils # Man Lymphocytes # (Manual) PT INR POC ABG pH 7.241 L 7.285 L POC ABG pCO2 33.9 L 29.9 L POC ABG pO2 45 L 117 H Sodium Potassium Chloride Carbon Dioxide BUN Creatinine Glucose POC Glucose 185 H Lactic Acid Calcium Phosphorus Magnesium Total Bilirubin AST ALT Alkaline Phosphatase Troponin T C-Reactive Protein Total Protein Albumin Triglycerides LDL Cholesterol Direct HDL Cholesterol Urine WBC (Auto) Urine Creatinine 12/22/17 12/22/17 12/22/17 14:27 17:22 19:58 WBC RBC Hgb Hct MCV MCH RDW Plt Count Lymph % (Auto) [place] % (Auto) [place] # Seg Neutrophils % Seg Neuts % (Manual) Lymphocytes % (Manual) Seg Neutrophils # Seg Neutrophils # Man Lymphocytes # (Manual) PT INR POC ABG pH 7.338 L POC ABG pCO2 27.6 L POC ABG pO2 167 H Sodium Potassium Chloride Carbon Dioxide BUN Creatinine Glucose POC Glucose 220 H 197 H Lactic Acid Calcium Phosphorus Magnesium Total Bilirubin AST ALT Alkaline Phosphatase Troponin T C-Reactive Protein Total Protein Albumin Triglycerides LDL Cholesterol Direct HDL Cholesterol Urine WBC (Auto) Urine Creatinine 12/22/17 12/23/17 12/23/17 21:18 05:30 05:30 WBC 14.5 H RBC Hgb Hct MCV 75 L MCH 26 L RDW 16.7 H Plt Count 26 L Lymph % (Auto) [place] % (Auto) [place] # Seg Neutrophils % Seg Neuts % (Manual) Lymphocytes % (Manual) Seg Neutrophils # Seg Neutrophils # Man Lymphocytes # (Manual) PT INR POC ABG pH POC ABG pCO2 POC ABG pO2 Sodium Potassium Chloride Carbon Dioxide 15 L BUN 49 H Creatinine 3.5 H Glucose 123 H POC Glucose 189 H Lactic Acid Calcium 6.7 L Phosphorus Magnesium Total Bilirubin 3.60 H AST 93 H ALT 58 H Alkaline Phosphatase Troponin T C-Reactive Protein Total Protein 4.5 L Albumin 2.0 L Triglycerides LDL Cholesterol Direct HDL Cholesterol Urine WBC (Auto) Urine Creatinine 12/23/17 12/23/17 12/23/17 05:30 12:31 15:13 WBC RBC Hgb Hct MCV MCH RDW Plt Count Lymph % (Auto) [place] % (Auto) [place] # Seg Neutrophils % Seg Neuts % (Manual) Lymphocytes % (Manual) Seg Neutrophils # Seg Neutrophils # Man Lymphocytes # (Manual) PT INR POC ABG pH POC ABG pCO2 POC ABG pO2 Sodium Potassium Chloride Carbon Dioxide BUN Creatinine Glucose POC Glucose 141 H Lactic Acid Calcium Phosphorus Magnesium Total Bilirubin AST ALT Alkaline Phosphatase Troponin T C-Reactive Protein 38.70 H Total Protein Albumin Triglycerides LDL Cholesterol Direct HDL Cholesterol Urine WBC (Auto) Urine Creatinine 65.1 H 12/23/17 12/24/17 12/24/17 18:53 00:13 05:15 WBC 14.7 H RBC Hgb Hct MCV 76 L MCH 25 L RDW 16.6 H Plt Count 20 L Lymph % (Auto) [place] % (Auto) [place] # Seg Neutrophils % Seg Neuts % (Manual) Lymphocytes % (Manual) Seg Neutrophils # Seg Neutrophils # Man Lymphocytes # (Manual) PT INR POC ABG pH POC ABG pCO2 POC ABG pO2 Sodium Potassium Chloride Carbon Dioxide BUN Creatinine Glucose POC Glucose 205 H 207 H Lactic Acid Calcium Phosphorus Magnesium Total Bilirubin AST ALT Alkaline Phosphatase Troponin T C-Reactive Protein Total Protein Albumin Triglycerides LDL Cholesterol Direct HDL Cholesterol Urine WBC (Auto) Urine Creatinine 12/24/17 12/24/17 12/24/17 05:15 05:51 08:31 WBC RBC Hgb Hct MCV MCH RDW Plt Count Lymph % (Auto) [place] % (Auto) [place] # Seg Neutrophils % Seg Neuts % (Manual) Lymphocytes % (Manual) Seg Neutrophils # Seg Neutrophils # Man Lymphocytes # (Manual) PT INR POC ABG pH POC ABG pCO2 POC ABG pO2 Sodium Potassium Chloride 107.2 H Carbon Dioxide 19 L BUN 67 H Creatinine 4.0 H Glucose 150 H POC Glucose 176 H 251 H Lactic Acid Calcium 7.2 L Phosphorus Magnesium Total Bilirubin 5.60 H AST 47 H ALT Alkaline Phosphatase Troponin T C-Reactive Protein Total Protein 4.3 L Albumin 1.9 L Triglycerides LDL Cholesterol Direct HDL Cholesterol Urine WBC (Auto) Urine Creatinine 12/24/17 12/24/17 12/24/17 11:53 17:19 21:16 WBC RBC Hgb Hct MCV MCH RDW Plt Count Lymph % (Auto) [place] % (Auto) [place] # Seg Neutrophils % Seg Neuts % (Manual) Lymphocytes % (Manual) Seg Neutrophils # Seg Neutrophils # Man Lymphocytes # (Manual) PT INR POC ABG pH POC ABG pCO2 POC ABG pO2 Sodium Potassium Chloride Carbon Dioxide BUN Creatinine Glucose POC Glucose 274 H 302 H 345 H Lactic Acid Calcium Phosphorus Magnesium Total Bilirubin AST ALT Alkaline Phosphatase Troponin T C-Reactive Protein Total Protein Albumin Triglycerides LDL Cholesterol Direct HDL Cholesterol Urine WBC (Auto) Urine Creatinine 12/25/17 12/25/17 12/25/17 05:55 05:55 05:55 WBC 13.7 H RBC Hgb Hct 30.2 L MCV 75 L MCH 25 L RDW 17.2 H Plt Count 24 L Lymph % (Auto) [place] % (Auto) [place] # Seg Neutrophils % Seg Neuts % (Manual) 85.0 H Lymphocytes % (Manual) 3.0 L Seg Neutrophils # Seg Neutrophils # Man 11.6 H Lymphocytes # (Manual) 0.4 L PT INR POC ABG pH POC ABG pCO2 POC ABG pO2 Sodium Potassium 3.5 L Chloride Carbon Dioxide BUN 81 H Creatinine 3.9 H Glucose 471 H POC Glucose Lactic Acid Calcium 7.5 L Phosphorus Magnesium Total Bilirubin 7.70 H AST ALT Alkaline Phosphatase 234 H Troponin T C-Reactive Protein 19.90 H Total Protein 4.9 L Albumin 1.6 L Triglycerides LDL Cholesterol Direct HDL Cholesterol Urine WBC (Auto) Urine Creatinine 12/25/17 12/25/17 12/25/17 08:21 09:41 12:14 WBC RBC Hgb Hct MCV MCH RDW Plt Count Lymph % (Auto) [place] % (Auto) [place] # Seg Neutrophils % Seg Neuts % (Manual) Lymphocytes % (Manual) Seg Neutrophils # Seg Neutrophils # Man Lymphocytes # (Manual) PT INR POC ABG pH POC ABG pCO2 POC ABG pO2 Sodium Potassium Chloride Carbon Dioxide BUN Creatinine Glucose POC Glucose 468 H 405 H Lactic Acid 2.10 H* Calcium Phosphorus Magnesium Total Bilirubin AST ALT Alkaline Phosphatase Troponin T C-Reactive Protein Total Protein Albumin Triglycerides LDL Cholesterol Direct HDL Cholesterol Urine WBC (Auto) Urine Creatinine 12/25/17 12/25/17 12/26/17 16:13 21:46 06:54 WBC 16.6 H RBC Hgb 10.0 L Hct 29.3 L MCV 74 L MCH 25 L RDW 16.5 H Plt Count 27 L Lymph % (Auto) [place] % (Auto) [place] # Seg Neutrophils % Seg Neuts % (Manual) Lymphocytes % (Manual) Seg Neutrophils # Seg Neutrophils # Man Lymphocytes # (Manual) PT INR POC ABG pH POC ABG pCO2 POC ABG pO2 Sodium Potassium Chloride Carbon Dioxide BUN Creatinine Glucose POC Glucose 264 H 249 H Lactic Acid Calcium Phosphorus Magnesium Total Bilirubin AST ALT Alkaline Phosphatase Troponin T C-Reactive Protein Total Protein Albumin Triglycerides LDL Cholesterol Direct HDL Cholesterol Urine WBC (Auto) Urine Creatinine 12/26/17 12/26/17 12/26/17 06:54 07:57 11:36 WBC RBC Hgb Hct MCV MCH RDW Plt Count Lymph % (Auto) [place] % (Auto) [place] # Seg Neutrophils % Seg Neuts % (Manual) Lymphocytes % (Manual) Seg Neutrophils # Seg Neutrophils # Man Lymphocytes # (Manual) PT INR POC ABG pH POC ABG pCO2 POC ABG pO2 Sodium Potassium 3.0 L Chloride 97.7 L Carbon Dioxide 32 H BUN 78 H Creatinine 3.8 H Glucose 353 H POC Glucose 384 H 274 H Lactic Acid Calcium 7.2 L Phosphorus Magnesium Total Bilirubin 6.00 H AST 50 H ALT Alkaline Phosphatase 265 H Troponin T C-Reactive Protein Total Protein 4.8 L Albumin 1.4 L Triglycerides LDL Cholesterol Direct HDL Cholesterol Urine WBC (Auto) Urine Creatinine 12/26/17 12/26/17 12/27/17 18:33 21:21 02:04 WBC RBC Hgb Hct MCV MCH RDW Plt Count Lymph % (Auto) [place] % (Auto) [place] # Seg Neutrophils % Seg Neuts % (Manual) Lymphocytes % (Manual) Seg Neutrophils # Seg Neutrophils # Man Lymphocytes # (Manual) PT INR POC ABG pH POC ABG pCO2 POC ABG pO2 Sodium Potassium Chloride Carbon Dioxide BUN Creatinine Glucose POC Glucose 198 H 182 H 200 H Lactic Acid Calcium Phosphorus Magnesium Total Bilirubin AST ALT Alkaline Phosphatase Troponin T C-Reactive Protein Total Protein Albumin Triglycerides LDL Cholesterol Direct HDL Cholesterol Urine WBC (Auto) Urine Creatinine 12/27/17 12/27/17 12/27/17 04:07 05:24 06:40 WBC 16.8 H RBC Hgb 9.7 L Hct 29.5 L MCV 74 L MCH 24 L RDW 16.9 H Plt Count 43 L Lymph % (Auto) [place] % (Auto) [place] # Seg Neutrophils % Seg Neuts % (Manual) Lymphocytes % (Manual) Seg Neutrophils # Seg Neutrophils # Man Lymphocytes # (Manual) PT INR POC ABG pH 7.599 H POC ABG pCO2 POC ABG pO2 108 H Sodium Potassium Chloride Carbon Dioxide BUN Creatinine Glucose POC Glucose 156 H Lactic Acid Calcium Phosphorus Magnesium Total Bilirubin AST ALT Alkaline Phosphatase Troponin T C-Reactive Protein Total Protein Albumin Triglycerides LDL Cholesterol Direct HDL Cholesterol Urine WBC (Auto) Urine Creatinine 12/27/17 12/27/17 12/27/17 06:40 11:03 15:50 WBC RBC Hgb Hct MCV MCH RDW Plt Count Lymph % (Auto) [place] % (Auto) [place] # Seg Neutrophils % Seg Neuts % (Manual) Lymphocytes % (Manual) Seg Neutrophils # Seg Neutrophils # Man Lymphocytes # (Manual) PT INR POC ABG pH POC ABG pCO2 POC ABG pO2 Sodium Potassium 3.5 L Chloride Carbon Dioxide 36 H BUN 81 H Creatinine 3.8 H Glucose 153 H POC Glucose 220 H 275 H Lactic Acid Calcium 7.6 L Phosphorus Magnesium Total Bilirubin AST ALT Alkaline Phosphatase Troponin T C-Reactive Protein Total Protein Albumin Triglycerides LDL Cholesterol Direct HDL Cholesterol Urine WBC (Auto) Urine Creatinine 12/27/17 12/27/17 12/28/17 17:23 21:44 02:05 WBC RBC Hgb Hct MCV MCH RDW Plt Count Lymph % (Auto) [place] % (Auto) [place] # Seg Neutrophils % Seg Neuts % (Manual) Lymphocytes % (Manual) Seg Neutrophils # Seg Neutrophils # Man Lymphocytes # (Manual) PT INR POC ABG pH POC ABG pCO2 POC ABG pO2 Sodium Potassium Chloride Carbon Dioxide BUN Creatinine Glucose POC Glucose 256 H 180 H 148 H Lactic Acid Calcium Phosphorus Magnesium Total Bilirubin AST ALT Alkaline Phosphatase Troponin T C-Reactive Protein Total Protein Albumin Triglycerides LDL Cholesterol Direct HDL Cholesterol Urine WBC (Auto) Urine Creatinine 12/28/17 12/28/17 12/28/17 04:45 05:00 08:14 WBC RBC Hgb Hct MCV MCH RDW Plt Count Lymph % (Auto) [place] % (Auto) [place] # Seg Neutrophils % Seg Neuts % (Manual) Lymphocytes % (Manual) Seg Neutrophils # Seg Neutrophils # Man Lymphocytes # (Manual) PT INR POC ABG pH POC ABG pCO2 POC ABG pO2 Sodium 147 H Potassium 3.3 L Chloride Carbon Dioxide 32 H BUN 82 H Creatinine 3.9 H Glucose 212 H POC Glucose 205 H 180 H Lactic Acid Calcium 7.6 L Phosphorus Magnesium Total Bilirubin AST ALT Alkaline Phosphatase Troponin T C-Reactive Protein Total Protein Albumin Triglycerides LDL Cholesterol Direct HDL Cholesterol Urine WBC (Auto) Urine Creatinine 12/28/17 12/28/17 12/28/17 12:07 13:16 16:28 WBC RBC Hgb Hct MCV MCH RDW Plt Count Lymph % (Auto) [place] % (Auto) [place] # Seg Neutrophils % Seg Neuts % (Manual) Lymphocytes % (Manual) Seg Neutrophils # Seg Neutrophils # Man Lymphocytes # (Manual) PT 16.4 H INR 1.25 H POC ABG pH POC ABG pCO2 POC ABG pO2 Sodium Potassium Chloride Carbon Dioxide BUN Creatinine Glucose POC Glucose 213 H 126 H Lactic Acid Calcium Phosphorus Magnesium Total Bilirubin AST ALT Alkaline Phosphatase Troponin T C-Reactive Protein Total Protein Albumin Triglycerides LDL Cholesterol Direct HDL Cholesterol Urine WBC (Auto) Urine Creatinine 12/28/17 12/29/17 12/29/17 21:41 06:36 10:02 WBC 17.1 H RBC Hgb 9.3 L Hct 28.5 L MCV 76 L MCH 25 L RDW 17.2 H Plt Count 107 L D Lymph % (Auto) 6.8 L [place] % (Auto) 7.4 H [place] # 1.3 H Seg Neutrophils % 85.0 H Seg Neuts % (Manual) Lymphocytes % (Manual) Seg Neutrophils # 14.5 H Seg Neutrophils # Man Lymphocytes # (Manual) PT INR POC ABG pH POC ABG pCO2 POC ABG pO2 Sodium Potassium Chloride Carbon Dioxide BUN Creatinine Glucose POC Glucose 201 H 243 H Lactic Acid Calcium Phosphorus Magnesium Total Bilirubin AST ALT Alkaline Phosphatase Troponin T C-Reactive Protein Total Protein Albumin Triglycerides LDL Cholesterol Direct HDL Cholesterol Urine WBC (Auto) Urine Creatinine 12/29/17 12/29/17 12/29/17 10:02 11:49 17:33 WBC RBC Hgb Hct MCV MCH RDW Plt Count Lymph % (Auto) [place] % (Auto) [place] # Seg Neutrophils % Seg Neuts % (Manual) Lymphocytes % (Manual) Seg Neutrophils # Seg Neutrophils # Man Lymphocytes # (Manual) PT INR POC ABG pH POC ABG pCO2 POC ABG pO2 Sodium 151 H Potassium 3.3 L Chloride 108.8 H Carbon Dioxide BUN 81 H Creatinine 3.8 H Glucose 166 H POC Glucose 207 H 110 H Lactic Acid Calcium 7.7 L Phosphorus Magnesium Total Bilirubin 2.40 H AST 48 H ALT Alkaline Phosphatase 239 H Troponin T C-Reactive Protein Total Protein 5.5 L Albumin 1.7 L Triglycerides LDL Cholesterol Direct HDL Cholesterol Urine WBC (Auto) Urine Creatinine 12/29/17 12/30/17 12/30/17 22:21 01:08 05:30 WBC 16.6 H RBC 3.63 L Hgb 9.1 L Hct 26.7 L MCV 74 L MCH 25 L RDW 16.9 H Plt Count 119 L Lymph % (Auto) 7.5 L [place] % (Auto) 7.5 H [place] # 1.2 H Seg Neutrophils % 83.5 H Seg Neuts % (Manual) Lymphocytes % (Manual) Seg Neutrophils # 13.9 H Seg Neutrophils # Man Lymphocytes # (Manual) PT INR POC ABG pH POC ABG pCO2 POC ABG pO2 Sodium Potassium Chloride Carbon Dioxide BUN Creatinine Glucose POC Glucose 242 H 161 H Lactic Acid Calcium Phosphorus Magnesium Total Bilirubin AST ALT Alkaline Phosphatase Troponin T C-Reactive Protein Total Protein Albumin Triglycerides LDL Cholesterol Direct HDL Cholesterol Urine WBC (Auto) Urine Creatinine 12/30/17 12/30/17 12/30/17 05:30 05:39 06:09 WBC RBC Hgb Hct MCV MCH RDW Plt Count Lymph % (Auto) [place] % (Auto) [place] # Seg Neutrophils % Seg Neuts % (Manual) Lymphocytes % (Manual) Seg Neutrophils # Seg Neutrophils # Man Lymphocytes # (Manual) PT INR POC ABG pH POC ABG pCO2 POC ABG pO2 Sodium 146 H Potassium 2.9 L* Chloride Carbon Dioxide BUN 80 H Creatinine 3.5 H Glucose 160 H POC Glucose 113 H 189 H Lactic Acid Calcium 7.5 L Phosphorus Magnesium Total Bilirubin 2.30 H AST 87 H ALT Alkaline Phosphatase 403 H Troponin T C-Reactive Protein Total Protein 5.1 L Albumin 1.5 L Triglycerides LDL Cholesterol Direct HDL Cholesterol Urine WBC (Auto) Urine Creatinine
[2017-12-30] MEDS: LANTUS SUB-Q SCH (23:46)
[2017-12-31] MEDS: HumuLIN R SUB-Q SCH ×7 (03:37→23:12)
[2017-12-31] MEDS: VANCOMYCIN PO PO SCH ×3 (06:06→18:48)
--- NOTE | 2017-12-31 08:21 | Progress Note ---
Assessment and Plan 1. Acute kidney injury: Vasomotor / hemodynamic MARLENE in the setting of septic shock. Renal function is improving. 2. Septic shock: E.Coli bacteremia. Off Levophed. 3. Left hydronephrosis: Acute pyelonephritis. Improving. 4. Electrolytes: Replete K. Hypernatremia, continue water flushes and 1/2 NS. 5. DKA: Improved. 6. Acute Encephalopathy. 7. Thrombocytopenia: Improving. D/w her at the bedside. Subjective Date of service: 12/31/17 Principal diagnosis: septic shock Interval history: Patient was seen and examined at the bedside. Per she is doing better. Objective - Vital Signs Vital signs: Vital Signs - 12hr 12/30/17 12/30/17 12/31/17 21:44 22:00 00:53 Temperature 97.9 F 98.6 F Pulse Rate 94 H 90 88 Pulse Rate [ 90 From Monitor] Respiratory 18 2 L 20 Rate Blood Pressure 157/71 155/66 O2 Sat by Pulse 96 96 Oximetry 12/31/17 12/31/17 04:07 07:43 Temperature 98.1 F 98.0 F Pulse Rate 96 H 83 Pulse Rate [ From Monitor] Respiratory 20 20 Rate Blood Pressure 138/76 158/70 O2 Sat by Pulse 96 97 Oximetry - General Appearance General appearance: well-developed, appears stated age, other (no distress, NG tube noted) EENT: ATNC, PERRL, hearing intact, vision intact Neck: supple Respiratory: Present: Clear to Ascultation Cardiology: regular, S1S2, no murmurs Gastrointestinal: normoactive bowel sounds, no tenderness, obese Integumentary: warm and dry Neurologic: no focal deficit, no asterixis, other (MS is improving) Musculoskeletal: other (trace pedal edema noted) Psychiatric: cooperative - Lab 12/31/17 12:50 12/31/17 12:50 Most recent lab results Calcium 7.5 mg/dL (8.4-10.2) L 12/30/17 05:30 Phosphorus 3.50 mg/dL (2.5-4.5) 12/29/17 10:02 Magnesium 2.30 mg/dL (1.7-2.3) 12/29/17 10:02 Urine Creatinine 65.1 mg/dL (0.1-20.0) H 12/23/17 15:13 Urine Sodium 26 mmol/L 12/23/17 15:13
[2017-12-31] MEDS: FOLVITE PO SCH (10:35)
[2017-12-31] MEDS: Centrum Liq PO SCH (10:35)
[2017-12-31] MEDS: VITAMIN B-1 PO SCH (10:55)
[2017-12-31] MEDS: PEPCID PO SCH ×2 (10:55→23:15)
[2017-12-31] MEDS: SODIUM CHLORIDE FLUSH SYRINGE 10 ML IV SCH ×2 (10:55→23:16)
[2017-12-31 13:05] LABS: Basophils # (Auto) 0.1 K/mm3 (0.0-0.1); Basophils % (Auto) 0.6 % (0.0-1.8); Eosinophils # (Auto) 0.1 K/mm3 (0.0-0.4); Hematocrit 24.8 % (30.3-42.9); Hemoglobin 8.3 gm/dl (10.1-14.3); Lymphocytes % (Auto) 7.6 % (13.4-35.0); Mean Corpuscular HGB Conc 33 % (30-34); Mean Corpuscular Volume 76 fl (79-97); Monocytes # (Auto) 0.8 K/mm3 (0.0-0.8); Platelet Count 131 K/mm3 (140-440); Red Blood Count 3.28 M/mm3 (3.65-5.03)
[2017-12-31 13:11] LABS: Mean Corpuscular Hemoglobin 25 pg (28-32)
[2017-12-31 13:32] LABS: Albumin 1.9 g/dL (3.9-5); Calcium 7.5 mg/dL (8.4-10.2)
[2017-12-31] MEDS: MERREM 1,000 MG in NACL 0.9% 100 ML IV SCH (13:54)
--- NOTE | 2017-12-31 14:05 | Progress Note ---
Subjective Date of service: 12/31/17 Principal diagnosis: septic shock Objective Vital Signs - 12hr 12/31/17 12/31/17 12/31/17 04:07 07:43 10:00 Temperature 98.1 F 98.0 F Pulse Rate 96 H 83 Respiratory 20 20 Rate Blood Pressure 138/76 158/70 O2 Sat by Pulse 96 97 97 Oximetry 12/31/17 12:09 Temperature 97.9 F Pulse Rate 89 Respiratory 20 Rate Blood Pressure 162/75 O2 Sat by Pulse 100 Oximetry CBC and BMP: 12/31/17 12:50 12/31/17 12:50 ABG, PT/INR, D-dimer: ABG POC ABG pH 7.599 (7.35-7.45) H 12/27/17 04:07 POC ABG pCO2 42.4 (35-45) 12/27/17 04:07 POC ABG pO2 108 (80-105) H 12/27/17 04:07 POC ABG HCO3 41.6 12/27/17 04:07 POC ABG Total CO2 43 12/27/17 04:07 POC ABG O2 Sat 99 12/27/17 04:07 PT/INR, D-dimer PT 16.4 Sec. (12.2-14.9) H 12/28/17 13:16 INR 1.25 (0.87-1.13) H 12/28/17 13:16 Abnormal lab findings: Abnormal Labs 12/20/17 12/20/17 12/20/17 23:35 23:35 23:35 WBC RBC Hgb Hct MCV 78 L MCH 26 L RDW 15.7 H Plt Count 77 L Lymph % (Auto) [place] % (Auto) Lymph # [place] # Seg Neutrophils % Seg Neuts % (Manual) 76.0 H Lymphocytes % (Manual) 6.0 L Seg Neutrophils # Seg Neutrophils # Man 8.2 H Lymphocytes # (Manual) 0.6 L PT 18.5 H INR 1.45 H POC ABG pH POC ABG pCO2 POC ABG pO2 Sodium 130 L Potassium 3.5 L Chloride 92.3 L Carbon Dioxide 17 L BUN 27 H Creatinine 2.2 H Glucose 535 H* POC Glucose Lactic Acid Calcium 7.0 L Phosphorus Magnesium Total Bilirubin AST ALT Alkaline Phosphatase 173 H Troponin T C-Reactive Protein Total Protein 5.1 L Albumin 2.6 L Triglycerides LDL Cholesterol Direct HDL Cholesterol Urine WBC (Auto) Urine Creatinine 12/20/17 12/21/17 12/21/17 23:35 01:11 01:11 WBC RBC Hgb Hct MCV MCH RDW Plt Count Lymph % (Auto) [place] % (Auto) Lymph # [place] # Seg Neutrophils % Seg Neuts % (Manual) Lymphocytes % (Manual) Seg Neutrophils # Seg Neutrophils # Man Lymphocytes # (Manual) PT INR POC ABG pH POC ABG pCO2 POC ABG pO2 Sodium Potassium Chloride Carbon Dioxide BUN Creatinine Glucose POC Glucose Lactic Acid 8.30 H* 8.10 H* Calcium Phosphorus 1.90 L Magnesium 1.30 L Total Bilirubin AST ALT Alkaline Phosphatase Troponin T C-Reactive Protein Total Protein Albumin Triglycerides LDL Cholesterol Direct HDL Cholesterol Urine WBC (Auto) Urine Creatinine 12/21/17 12/21/17 12/21/17 01:11 01:50 02:09 WBC RBC Hgb Hct MCV MCH RDW Plt Count Lymph % (Auto) [place] % (Auto) Lymph # [place] # Seg Neutrophils % Seg Neuts % (Manual) Lymphocytes % (Manual) Seg Neutrophils # Seg Neutrophils # Man Lymphocytes # (Manual) PT INR POC ABG pH POC ABG pCO2 POC ABG pO2 Sodium 133 L Potassium 3.3 L Chloride 97.9 L Carbon Dioxide 15 L BUN 26 H Creatinine 2.1 H Glucose 504 H* POC Glucose 391 H Lactic Acid Calcium 6.4 L Phosphorus Magnesium Total Bilirubin AST ALT Alkaline Phosphatase Troponin T C-Reactive Protein Total Protein Albumin Triglycerides LDL Cholesterol Direct HDL Cholesterol Urine WBC (Auto) 38.0 H Urine Creatinine 12/21/17 12/21/17 12/21/17 03:10 03:26 05:15 WBC RBC Hgb Hct MCV MCH RDW Plt Count Lymph % (Auto) [place] % (Auto) Lymph # [place] # Seg Neutrophils % Seg Neuts % (Manual) Lymphocytes % (Manual) Seg Neutrophils # Seg Neutrophils # Man Lymphocytes # (Manual) PT INR POC ABG pH POC ABG pCO2 POC ABG pO2 Sodium 135 L Potassium 3.3 L Chloride Carbon Dioxide 14 L BUN 25 H Creatinine 1.9 H Glucose 443 H POC Glucose 389 H 407 H Lactic Acid Calcium 6.0 L Phosphorus Magnesium Total Bilirubin AST ALT Alkaline Phosphatase Troponin T C-Reactive Protein Total Protein Albumin Triglycerides LDL Cholesterol Direct HDL Cholesterol Urine WBC (Auto) Urine Creatinine 06/04/18 06/04/18 06/04/18 06:00 06:00 06:09 WBC RBC Hgb Hct MCV MCH RDW Plt Count Lymph % (Auto) [place] % (Auto) Lymph # [place] # Seg Neutrophils % Seg Neuts % (Manual) Lymphocytes % (Manual) Seg Neutrophils # Seg Neutrophils # Man Lymphocytes # (Manual) PT INR POC ABG pH POC ABG pCO2 POC ABG pO2 Sodium Potassium 3.4 L Chloride Carbon Dioxide 12 L BUN 28 H Creatinine 1.9 H Glucose 283 H POC Glucose 326 H Lactic Acid 7.90 H* Calcium 6.0 L Phosphorus Magnesium Total Bilirubin AST ALT Alkaline Phosphatase Troponin T C-Reactive Protein Total Protein Albumin Triglycerides LDL Cholesterol Direct HDL Cholesterol Urine WBC (Auto) Urine Creatinine 12/21/17 12/21/17 12/21/17 07:23 08:16 08:44 WBC RBC Hgb Hct MCV MCH RDW Plt Count Lymph % (Auto) [place] % (Auto) Lymph # [place] # Seg Neutrophils % Seg Neuts % (Manual) Lymphocytes % (Manual) Seg Neutrophils # Seg Neutrophils # Man Lymphocytes # (Manual) PT INR POC ABG pH POC ABG pCO2 POC ABG pO2 Sodium Potassium 3.3 L Chloride 107.8 H Carbon Dioxide 14 L BUN 29 H Creatinine 2.0 H Glucose 140 H POC Glucose 267 H 257 H Lactic Acid Calcium 6.2 L Phosphorus Magnesium Total Bilirubin AST ALT Alkaline Phosphatase Troponin T C-Reactive Protein Total Protein Albumin Triglycerides LDL Cholesterol Direct HDL Cholesterol Urine WBC (Auto) Urine Creatinine 12/21/17 12/21/17 12/21/17 08:44 08:44 09:02 WBC RBC Hgb Hct MCV MCH RDW Plt Count Lymph % (Auto) [place] % (Auto) Lymph # [place] # Seg Neutrophils % Seg Neuts % (Manual) Lymphocytes % (Manual) Seg Neutrophils # Seg Neutrophils # Man Lymphocytes # (Manual) PT INR POC ABG pH POC ABG pCO2 POC ABG pO2 Sodium Potassium Chloride Carbon Dioxide BUN Creatinine Glucose POC Glucose 211 H Lactic Acid 6.40 H* Calcium Phosphorus Magnesium Total Bilirubin AST ALT Alkaline Phosphatase Troponin T C-Reactive Protein 27.10 H Total Protein Albumin Triglycerides LDL Cholesterol Direct HDL Cholesterol Urine WBC (Auto) Urine Creatinine 12/21/17 12/21/17 12/21/17 09:35 10:27 11:57 WBC RBC Hgb Hct MCV MCH RDW Plt Count Lymph % (Auto) [place] % (Auto) Lymph # [place] # Seg Neutrophils % Seg Neuts % (Manual) Lymphocytes % (Manual) Seg Neutrophils # Seg Neutrophils # Man Lymphocytes # (Manual) PT INR POC ABG pH POC ABG pCO2 POC ABG pO2 Sodium Potassium Chloride Carbon Dioxide BUN Creatinine Glucose POC Glucose 182 H 142 H 134 H Lactic Acid Calcium Phosphorus Magnesium Total Bilirubin AST ALT Alkaline Phosphatase Troponin T C-Reactive Protein Total Protein Albumin Triglycerides LDL Cholesterol Direct HDL Cholesterol Urine WBC (Auto) Urine Creatinine 12/21/17 12/21/17 12/21/17 13:27 15:20 17:39 WBC RBC Hgb Hct MCV MCH RDW Plt Count Lymph % (Auto) [place] % (Auto) Lymph # [place] # Seg Neutrophils % Seg Neuts % (Manual) Lymphocytes % (Manual) Seg Neutrophils # Seg Neutrophils # Man Lymphocytes # (Manual) PT INR POC ABG pH POC ABG pCO2 POC ABG pO2 Sodium Potassium Chloride Carbon Dioxide BUN Creatinine Glucose POC Glucose 161 H 189 H Lactic Acid Calcium Phosphorus Magnesium Total Bilirubin AST ALT Alkaline Phosphatase Troponin T 0.087 H C-Reactive Protein Total Protein Albumin Triglycerides 202 H LDL Cholesterol Direct 6 L HDL Cholesterol 10 L Urine WBC (Auto) Urine Creatinine 12/21/17 12/21/17 12/21/17 17:47 19:32 20:56 WBC RBC Hgb Hct MCV MCH RDW Plt Count Lymph % (Auto) [place] % (Auto) Lymph # [place] # Seg Neutrophils % Seg Neuts % (Manual) Lymphocytes % (Manual) Seg Neutrophils # Seg Neutrophils # Man Lymphocytes # (Manual) PT INR POC ABG pH POC ABG pCO2 POC ABG pO2 Sodium Potassium Chloride 107.2 H Carbon Dioxide 14 L BUN 32 H Creatinine 2.4 H Glucose 171 H POC Glucose 160 H 136 H Lactic Acid Calcium 6.6 L Phosphorus Magnesium Total Bilirubin AST ALT Alkaline Phosphatase Troponin T C-Reactive Protein Total Protein Albumin Triglycerides LDL Cholesterol Direct HDL Cholesterol Urine WBC (Auto) Urine Creatinine 12/21/17 12/22/17 12/22/17 21:12 00:29 03:08 WBC RBC Hgb Hct MCV MCH RDW Plt Count Lymph % (Auto) [place] % (Auto) Lymph # [place] # Seg Neutrophils % Seg Neuts % (Manual) Lymphocytes % (Manual) Seg Neutrophils # Seg Neutrophils # Man Lymphocytes # (Manual) PT INR POC ABG pH 7.152 L 7.241 L POC ABG pCO2 28.1 L POC ABG pO2 62 L 113 H Sodium Potassium Chloride Carbon Dioxide BUN Creatinine Glucose POC Glucose 109 H Lactic Acid Calcium Phosphorus Magnesium Total Bilirubin AST ALT Alkaline Phosphatase Troponin T C-Reactive Protein Total Protein Albumin Triglycerides LDL Cholesterol Direct HDL Cholesterol Urine WBC (Auto) Urine Creatinine 12/22/17 12/22/17 12/22/17 04:29 04:30 04:30 WBC 21.9 H RBC Hgb Hct MCV 77 L MCH 25 L RDW 16.6 H Plt Count 57 L Lymph % (Auto) [place] % (Auto) Lymph # [place] # Seg Neutrophils % Seg Neuts % (Manual) Lymphocytes % (Manual) Seg Neutrophils # Seg Neutrophils # Man Lymphocytes # (Manual) PT INR POC ABG pH POC ABG pCO2 POC ABG pO2 Sodium Potassium Chloride Carbon Dioxide 14 L BUN 37 H Creatinine 2.7 H Glucose 145 H POC Glucose 139 H Lactic Acid Calcium 6.4 L Phosphorus Magnesium Total Bilirubin AST ALT Alkaline Phosphatase Troponin T C-Reactive Protein Total Protein Albumin Triglycerides LDL Cholesterol Direct HDL Cholesterol Urine WBC (Auto) Urine Creatinine 12/22/17 12/22/17 12/22/17 04:30 05:24 05:54 WBC RBC Hgb Hct MCV MCH RDW Plt Count Lymph % (Auto) [place] % (Auto) Lymph # [place] # Seg Neutrophils % Seg Neuts % (Manual) Lymphocytes % (Manual) Seg Neutrophils # Seg Neutrophils # Man Lymphocytes # (Manual) PT INR POC ABG pH POC ABG pCO2 POC ABG pO2 Sodium Potassium Chloride Carbon Dioxide BUN Creatinine Glucose POC Glucose 144 H 145 H Lactic Acid 3.30 H* Calcium Phosphorus Magnesium Total Bilirubin AST ALT Alkaline Phosphatase Troponin T C-Reactive Protein Total Protein Albumin Triglycerides LDL Cholesterol Direct HDL Cholesterol Urine WBC (Auto) Urine Creatinine 12/22/17 12/22/17 12/22/17 07:56 07:56 10:09 WBC RBC Hgb Hct MCV MCH RDW Plt Count Lymph % (Auto) [place] % (Auto) Lymph # [place] # Seg Neutrophils % Seg Neuts % (Manual) Lymphocytes % (Manual) Seg Neutrophils # Seg Neutrophils # Man Lymphocytes # (Manual) PT INR POC ABG pH 7.180 L POC ABG pCO2 POC ABG pO2 117 H Sodium Potassium Chloride Carbon Dioxide 14 L BUN 39 H Creatinine 2.9 H Glucose 174 H POC Glucose Lactic Acid 3.00 H* Calcium 6.7 L Phosphorus Magnesium Total Bilirubin AST ALT Alkaline Phosphatase Troponin T C-Reactive Protein Total Protein Albumin Triglycerides LDL Cholesterol Direct HDL Cholesterol Urine WBC (Auto) Urine Creatinine 12/22/17 12/22/17 12/22/17 10:12 12:19 14:23 WBC RBC Hgb Hct MCV MCH RDW Plt Count Lymph % (Auto) [place] % (Auto) Lymph # [place] # Seg Neutrophils % Seg Neuts % (Manual) Lymphocytes % (Manual) Seg Neutrophils # Seg Neutrophils # Man Lymphocytes # (Manual) PT INR POC ABG pH 7.241 L 7.285 L POC ABG pCO2 33.9 L 29.9 L POC ABG pO2 45 L 117 H Sodium Potassium Chloride Carbon Dioxide BUN Creatinine Glucose POC Glucose 185 H Lactic Acid Calcium Phosphorus Magnesium Total Bilirubin AST ALT Alkaline Phosphatase Troponin T C-Reactive Protein Total Protein Albumin Triglycerides LDL Cholesterol Direct HDL Cholesterol Urine WBC (Auto) Urine Creatinine 12/22/17 12/22/17 12/22/17 14:27 17:22 19:58 WBC RBC Hgb Hct MCV MCH RDW Plt Count Lymph % (Auto) [place] % (Auto) Lymph # [place] # Seg Neutrophils % Seg Neuts % (Manual) Lymphocytes % (Manual) Seg Neutrophils # Seg Neutrophils # Man Lymphocytes # (Manual) PT INR POC ABG pH 7.338 L POC ABG pCO2 27.6 L POC ABG pO2 167 H Sodium Potassium Chloride Carbon Dioxide BUN Creatinine Glucose POC Glucose 220 H 197 H Lactic Acid Calcium Phosphorus Magnesium Total Bilirubin AST ALT Alkaline Phosphatase Troponin T C-Reactive Protein Total Protein Albumin Triglycerides LDL Cholesterol Direct HDL Cholesterol Urine WBC (Auto) Urine Creatinine 12/22/17 12/23/17 12/23/17 21:18 05:30 05:30 WBC 14.5 H RBC Hgb Hct MCV 75 L MCH 26 L RDW 16.7 H Plt Count 26 L Lymph % (Auto) [place] % (Auto) Lymph # [place] # Seg Neutrophils % Seg Neuts % (Manual) Lymphocytes % (Manual) Seg Neutrophils # Seg Neutrophils # Man Lymphocytes # (Manual) PT INR POC ABG pH POC ABG pCO2 POC ABG pO2 Sodium Potassium Chloride Carbon Dioxide 15 L BUN 49 H Creatinine 3.5 H Glucose 123 H POC Glucose 189 H Lactic Acid Calcium 6.7 L Phosphorus Magnesium Total Bilirubin 3.60 H AST 93 H ALT 58 H Alkaline Phosphatase Troponin T C-Reactive Protein Total Protein 4.5 L Albumin 2.0 L Triglycerides LDL Cholesterol Direct HDL Cholesterol Urine WBC (Auto) Urine Creatinine 12/23/17 12/23/17 12/23/17 05:30 12:31 15:13 WBC RBC Hgb Hct MCV MCH RDW Plt Count Lymph % (Auto) [place] % (Auto) Lymph # [place] # Seg Neutrophils % Seg Neuts % (Manual) Lymphocytes % (Manual) Seg Neutrophils # Seg Neutrophils # Man Lymphocytes # (Manual) PT INR POC ABG pH POC ABG pCO2 POC ABG pO2 Sodium Potassium Chloride Carbon Dioxide BUN Creatinine Glucose POC Glucose 141 H Lactic Acid Calcium Phosphorus Magnesium Total Bilirubin AST ALT Alkaline Phosphatase Troponin T C-Reactive Protein 38.70 H Total Protein Albumin Triglycerides LDL Cholesterol Direct HDL Cholesterol Urine WBC (Auto) Urine Creatinine 65.1 H 12/23/17 12/24/17 12/24/17 18:53 00:13 05:15 WBC 14.7 H RBC Hgb Hct MCV 76 L MCH 25 L RDW 16.6 H Plt Count 20 L Lymph % (Auto) [place] % (Auto) Lymph # [place] # Seg Neutrophils % Seg Neuts % (Manual) Lymphocytes % (Manual) Seg Neutrophils # Seg Neutrophils # Man Lymphocytes # (Manual) PT INR POC ABG pH POC ABG pCO2 POC ABG pO2 Sodium Potassium Chloride Carbon Dioxide BUN Creatinine Glucose POC Glucose 205 H 207 H Lactic Acid Calcium Phosphorus Magnesium Total Bilirubin AST ALT Alkaline Phosphatase Troponin T C-Reactive Protein Total Protein Albumin Triglycerides LDL Cholesterol Direct HDL Cholesterol Urine WBC (Auto) Urine Creatinine 12/24/17 12/24/17 12/24/17 05:15 05:51 08:31 WBC RBC Hgb Hct MCV MCH RDW Plt Count Lymph % (Auto) [place] % (Auto) Lymph # [place] # Seg Neutrophils % Seg Neuts % (Manual) Lymphocytes % (Manual) Seg Neutrophils # Seg Neutrophils # Man Lymphocytes # (Manual) PT INR POC ABG pH POC ABG pCO2 POC ABG pO2 Sodium Potassium Chloride 107.2 H Carbon Dioxide 19 L BUN 67 H Creatinine 4.0 H Glucose 150 H POC Glucose 176 H 251 H Lactic Acid Calcium 7.2 L Phosphorus Magnesium Total Bilirubin 5.60 H AST 47 H ALT Alkaline Phosphatase Troponin T C-Reactive Protein Total Protein 4.3 L Albumin 1.9 L Triglycerides LDL Cholesterol Direct HDL Cholesterol Urine WBC (Auto) Urine Creatinine 12/24/17 12/24/17 12/24/17 11:53 17:19 21:16 WBC RBC Hgb Hct MCV MCH RDW Plt Count Lymph % (Auto) [place] % (Auto) Lymph # [place] # Seg Neutrophils % Seg Neuts % (Manual) Lymphocytes % (Manual) Seg Neutrophils # Seg Neutrophils # Man Lymphocytes # (Manual) PT INR POC ABG pH POC ABG pCO2 POC ABG pO2 Sodium Potassium Chloride Carbon Dioxide BUN Creatinine Glucose POC Glucose 274 H 302 H 345 H Lactic Acid Calcium Phosphorus Magnesium Total Bilirubin AST ALT Alkaline Phosphatase Troponin T C-Reactive Protein Total Protein Albumin Triglycerides LDL Cholesterol Direct HDL Cholesterol Urine WBC (Auto) Urine Creatinine 12/25/17 12/25/17 12/25/17 05:55 05:55 05:55 WBC 13.7 H RBC Hgb Hct 30.2 L MCV 75 L MCH 25 L RDW 17.2 H Plt Count 24 L Lymph % (Auto) [place] % (Auto) Lymph # [place] # Seg Neutrophils % Seg Neuts % (Manual) 85.0 H Lymphocytes % (Manual) 3.0 L Seg Neutrophils # Seg Neutrophils # Man 11.6 H Lymphocytes # (Manual) 0.4 L PT INR POC ABG pH POC ABG pCO2 POC ABG pO2 Sodium Potassium 3.5 L Chloride Carbon Dioxide BUN 81 H Creatinine 3.9 H Glucose 471 H POC Glucose Lactic Acid Calcium 7.5 L Phosphorus Magnesium Total Bilirubin 7.70 H AST ALT Alkaline Phosphatase 234 H Troponin T C-Reactive Protein 19.90 H Total Protein 4.9 L Albumin 1.6 L Triglycerides LDL Cholesterol Direct HDL Cholesterol Urine WBC (Auto) Urine Creatinine 12/25/17 12/25/17 12/25/17 08:21 09:41 12:14 WBC RBC Hgb Hct MCV MCH RDW Plt Count Lymph % (Auto) [place] % (Auto) Lymph # [place] # Seg Neutrophils % Seg Neuts % (Manual) Lymphocytes % (Manual) Seg Neutrophils # Seg Neutrophils # Man Lymphocytes # (Manual) PT INR POC ABG pH POC ABG pCO2 POC ABG pO2 Sodium Potassium Chloride Carbon Dioxide BUN Creatinine Glucose POC Glucose 468 H 405 H Lactic Acid 2.10 H* Calcium Phosphorus Magnesium Total Bilirubin AST ALT Alkaline Phosphatase Troponin T C-Reactive Protein Total Protein Albumin Triglycerides LDL Cholesterol Direct HDL Cholesterol Urine WBC (Auto) Urine Creatinine 12/25/17 12/25/17 12/26/17 16:13 21:46 06:54 WBC 16.6 H RBC Hgb 10.0 L Hct 29.3 L MCV 74 L MCH 25 L RDW 16.5 H Plt Count 27 L Lymph % (Auto) [place] % (Auto) Lymph # [place] # Seg Neutrophils % Seg Neuts % (Manual) Lymphocytes % (Manual) Seg Neutrophils # Seg Neutrophils # Man Lymphocytes # (Manual) PT INR POC ABG pH POC ABG pCO2 POC ABG pO2 Sodium Potassium Chloride Carbon Dioxide BUN Creatinine Glucose POC Glucose 264 H 249 H Lactic Acid Calcium Phosphorus Magnesium Total Bilirubin AST ALT Alkaline Phosphatase Troponin T C-Reactive Protein Total Protein Albumin Triglycerides LDL Cholesterol Direct HDL Cholesterol Urine WBC (Auto) Urine Creatinine 12/26/17 12/26/17 12/26/17 06:54 07:57 11:36 WBC RBC Hgb Hct MCV MCH RDW Plt Count Lymph % (Auto) [place] % (Auto) Lymph # [place] # Seg Neutrophils % Seg Neuts % (Manual) Lymphocytes % (Manual) Seg Neutrophils # Seg Neutrophils # Man Lymphocytes # (Manual) PT INR POC ABG pH POC ABG pCO2 POC ABG pO2 Sodium Potassium 3.0 L Chloride 97.7 L Carbon Dioxide 32 H BUN 78 H Creatinine 3.8 H Glucose 353 H POC Glucose 384 H 274 H Lactic Acid Calcium 7.2 L Phosphorus Magnesium Total Bilirubin 6.00 H AST 50 H ALT Alkaline Phosphatase 265 H Troponin T C-Reactive Protein Total Protein 4.8 L Albumin 1.4 L Triglycerides LDL Cholesterol Direct HDL Cholesterol Urine WBC (Auto) Urine Creatinine 12/26/17 12/26/17 12/27/17 18:33 21:21 02:04 WBC RBC Hgb Hct MCV MCH RDW Plt Count Lymph % (Auto) [place] % (Auto) Lymph # [place] # Seg Neutrophils % Seg Neuts % (Manual) Lymphocytes % (Manual) Seg Neutrophils # Seg Neutrophils # Man Lymphocytes # (Manual) PT INR POC ABG pH POC ABG pCO2 POC ABG pO2 Sodium Potassium Chloride Carbon Dioxide BUN Creatinine Glucose POC Glucose 198 H 182 H 200 H Lactic Acid Calcium Phosphorus Magnesium Total Bilirubin AST ALT Alkaline Phosphatase Troponin T C-Reactive Protein Total Protein Albumin Triglycerides LDL Cholesterol Direct HDL Cholesterol Urine WBC (Auto) Urine Creatinine 12/27/17 12/27/17 12/27/17 04:07 05:24 06:40 WBC 16.8 H RBC Hgb 9.7 L Hct 29.5 L MCV 74 L MCH 24 L RDW 16.9 H Plt Count 43 L Lymph % (Auto) [place] % (Auto) Lymph # [place] # Seg Neutrophils % Seg Neuts % (Manual) Lymphocytes % (Manual) Seg Neutrophils # Seg Neutrophils # Man Lymphocytes # (Manual) PT INR POC ABG pH 7.599 H POC ABG pCO2 POC ABG pO2 108 H Sodium Potassium Chloride Carbon Dioxide BUN Creatinine Glucose POC Glucose 156 H Lactic Acid Calcium Phosphorus Magnesium Total Bilirubin AST ALT Alkaline Phosphatase Troponin T C-Reactive Protein Total Protein Albumin Triglycerides LDL Cholesterol Direct HDL Cholesterol Urine WBC (Auto) Urine Creatinine 12/27/17 12/27/17 12/27/17 06:40 11:03 15:50 WBC RBC Hgb Hct MCV MCH RDW Plt Count Lymph % (Auto) [place] % (Auto) Lymph # [place] # Seg Neutrophils % Seg Neuts % (Manual) Lymphocytes % (Manual) Seg Neutrophils # Seg Neutrophils # Man Lymphocytes # (Manual) PT INR POC ABG pH POC ABG pCO2 POC ABG pO2 Sodium Potassium 3.5 L Chloride Carbon Dioxide 36 H BUN 81 H Creatinine 3.8 H Glucose 153 H POC Glucose 220 H 275 H Lactic Acid Calcium 7.6 L Phosphorus Magnesium Total Bilirubin AST ALT Alkaline Phosphatase Troponin T C-Reactive Protein Total Protein Albumin Triglycerides LDL Cholesterol Direct HDL Cholesterol Urine WBC (Auto) Urine Creatinine 12/27/17 12/27/17 12/28/17 17:23 21:44 02:05 WBC RBC Hgb Hct MCV MCH RDW Plt Count Lymph % (Auto) [place] % (Auto) Lymph # [place] # Seg Neutrophils % Seg Neuts % (Manual) Lymphocytes % (Manual) Seg Neutrophils # Seg Neutrophils # Man Lymphocytes # (Manual) PT INR POC ABG pH POC ABG pCO2 POC ABG pO2 Sodium Potassium Chloride Carbon Dioxide BUN Creatinine Glucose POC Glucose 256 H 180 H 148 H Lactic Acid Calcium Phosphorus Magnesium Total Bilirubin AST ALT Alkaline Phosphatase Troponin T C-Reactive Protein Total Protein Albumin Triglycerides LDL Cholesterol Direct HDL Cholesterol Urine WBC (Auto) Urine Creatinine 12/28/17 12/28/17 12/28/17 04:45 05:00 08:14 WBC RBC Hgb Hct MCV MCH RDW Plt Count Lymph % (Auto) [place] % (Auto) Lymph # [place] # Seg Neutrophils % Seg Neuts % (Manual) Lymphocytes % (Manual) Seg Neutrophils # Seg Neutrophils # Man Lymphocytes # (Manual) PT INR POC ABG pH POC ABG pCO2 POC ABG pO2 Sodium 147 H Potassium 3.3 L Chloride Carbon Dioxide 32 H BUN 82 H Creatinine 3.9 H Glucose 212 H POC Glucose 205 H 180 H Lactic Acid Calcium 7.6 L Phosphorus Magnesium Total Bilirubin AST ALT Alkaline Phosphatase Troponin T C-Reactive Protein Total Protein Albumin Triglycerides LDL Cholesterol Direct HDL Cholesterol Urine WBC (Auto) Urine Creatinine 12/28/17 12/28/17 12/28/17 12:07 13:16 16:28 WBC RBC Hgb Hct MCV MCH RDW Plt Count Lymph % (Auto) [place] % (Auto) Lymph # [place] # Seg Neutrophils % Seg Neuts % (Manual) Lymphocytes % (Manual) Seg Neutrophils # Seg Neutrophils # Man Lymphocytes # (Manual) PT 16.4 H INR 1.25 H POC ABG pH POC ABG pCO2 POC ABG pO2 Sodium Potassium Chloride Carbon Dioxide BUN Creatinine Glucose POC Glucose 213 H 126 H Lactic Acid Calcium Phosphorus Magnesium Total Bilirubin AST ALT Alkaline Phosphatase Troponin T C-Reactive Protein Total Protein Albumin Triglycerides LDL Cholesterol Direct HDL Cholesterol Urine WBC (Auto) Urine Creatinine 12/28/17 12/29/17 12/29/17 21:41 06:36 10:02 WBC 17.1 H RBC Hgb 9.3 L Hct 28.5 L MCV 76 L MCH 25 L RDW 17.2 H Plt Count 107 L D Lymph % (Auto) 6.8 L [place] % (Auto) 7.4 H Lymph # [place] # 1.3 H Seg Neutrophils % 85.0 H Seg Neuts % (Manual) Lymphocytes % (Manual) Seg Neutrophils # 14.5 H Seg Neutrophils # Man Lymphocytes # (Manual) PT INR POC ABG pH POC ABG pCO2 POC ABG pO2 Sodium Potassium Chloride Carbon Dioxide BUN Creatinine Glucose POC Glucose 201 H 243 H Lactic Acid Calcium Phosphorus Magnesium Total Bilirubin AST ALT Alkaline Phosphatase Troponin T C-Reactive Protein Total Protein Albumin Triglycerides LDL Cholesterol Direct HDL Cholesterol Urine WBC (Auto) Urine Creatinine 12/29/17 12/29/17 12/29/17 10:02 11:49 17:33 WBC RBC Hgb Hct MCV MCH RDW Plt Count Lymph % (Auto) [place] % (Auto) Lymph # [place] # Seg Neutrophils % Seg Neuts % (Manual) Lymphocytes % (Manual) Seg Neutrophils # Seg Neutrophils # Man Lymphocytes # (Manual) PT INR POC ABG pH POC ABG pCO2 POC ABG pO2 Sodium 151 H Potassium 3.3 L Chloride 108.8 H Carbon Dioxide BUN 81 H Creatinine 3.8 H Glucose 166 H POC Glucose 207 H 110 H Lactic Acid Calcium 7.7 L Phosphorus Magnesium Total Bilirubin 2.40 H AST 48 H ALT Alkaline Phosphatase 239 H Troponin T C-Reactive Protein Total Protein 5.5 L Albumin 1.7 L Triglycerides LDL Cholesterol Direct HDL Cholesterol Urine WBC (Auto) Urine Creatinine 12/29/17 12/30/17 12/30/17 22:21 01:08 05:30 WBC 16.6 H RBC 3.63 L Hgb 9.1 L Hct 26.7 L MCV 74 L MCH 25 L RDW 16.9 H Plt Count 119 L Lymph % (Auto) 7.5 L [place] % (Auto) 7.5 H Lymph # [place] # 1.2 H Seg Neutrophils % 83.5 H Seg Neuts % (Manual) Lymphocytes % (Manual) Seg Neutrophils # 13.9 H Seg Neutrophils # Man Lymphocytes # (Manual) PT INR POC ABG pH POC ABG pCO2 POC ABG pO2 Sodium Potassium Chloride Carbon Dioxide BUN Creatinine Glucose POC Glucose 242 H 161 H Lactic Acid Calcium Phosphorus Magnesium Total Bilirubin AST ALT Alkaline Phosphatase Troponin T C-Reactive Protein Total Protein Albumin Triglycerides LDL Cholesterol Direct HDL Cholesterol Urine WBC (Auto) Urine Creatinine 12/30/17 12/30/17 12/30/17 05:30 05:39 06:09 WBC RBC Hgb Hct MCV MCH RDW Plt Count Lymph % (Auto) [place] % (Auto) Lymph # [place] # Seg Neutrophils % Seg Neuts % (Manual) Lymphocytes % (Manual) Seg Neutrophils # Seg Neutrophils # Man Lymphocytes # (Manual) PT INR POC ABG pH POC ABG pCO2 POC ABG pO2 Sodium 146 H Potassium 2.9 L* Chloride Carbon Dioxide BUN 80 H Creatinine 3.5 H Glucose 160 H POC Glucose 113 H 189 H Lactic Acid Calcium 7.5 L Phosphorus Magnesium Total Bilirubin 2.30 H AST 87 H ALT Alkaline Phosphatase 403 H Troponin T C-Reactive Protein Total Protein 5.1 L Albumin 1.5 L Triglycerides LDL Cholesterol Direct HDL Cholesterol Urine WBC (Auto) Urine Creatinine 12/30/17 12/30/17 12/30/17 11:02 16:40 21:51 WBC RBC Hgb Hct MCV MCH RDW Plt Count Lymph % (Auto) [place] % (Auto) Lymph # [place] # Seg Neutrophils % Seg Neuts % (Manual) Lymphocytes % (Manual) Seg Neutrophils # Seg Neutrophils # Man Lymphocytes # (Manual) PT INR POC ABG pH POC ABG pCO2 POC ABG pO2 Sodium Potassium Chloride Carbon Dioxide BUN Creatinine Glucose POC Glucose 265 H 224 H 262 H Lactic Acid Calcium Phosphorus Magnesium Total Bilirubin AST ALT Alkaline Phosphatase Troponin T C-Reactive Protein Total Protein Albumin Triglycerides LDL Cholesterol Direct HDL Cholesterol Urine WBC (Auto) Urine Creatinine 12/31/17 12/31/17 12/31/17 02:11 06:23 11:05 WBC RBC Hgb Hct MCV MCH RDW Plt Count Lymph % (Auto) [place] % (Auto) Lymph # [place] # Seg Neutrophils % Seg Neuts % (Manual) Lymphocytes % (Manual) Seg Neutrophils # Seg Neutrophils # Man Lymphocytes # (Manual) PT INR POC ABG pH POC ABG pCO2 POC ABG pO2 Sodium Potassium Chloride Carbon Dioxide BUN Creatinine Glucose POC Glucose 171 H 147 H 199 H Lactic Acid Calcium Phosphorus Magnesium Total Bilirubin AST ALT Alkaline Phosphatase Troponin T C-Reactive Protein Total Protein Albumin Triglycerides LDL Cholesterol Direct HDL Cholesterol Urine WBC (Auto) Urine Creatinine 12/31/17 12/31/17 12:50 12:50 WBC 13.2 H RBC 3.28 L Hgb 8.3 L Hct 24.8 L MCV 76 L MCH 25 L RDW 17.0 H Plt Count 131 L Lymph % (Auto) 7.6 L [place] % (Auto) Lymph # 1.0 L [place] # Seg Neutrophils % 84.8 H Seg Neuts % (Manual) Lymphocytes % (Manual) Seg Neutrophils # 11.2 H Seg Neutrophils # Man Lymphocytes # (Manual) PT INR POC ABG pH POC ABG pCO2 POC ABG pO2 Sodium 147 H Potassium 3.1 L Chloride 107.9 H Carbon Dioxide BUN 74 H Creatinine 3.0 H Glucose 184 H POC Glucose Lactic Acid Calcium 7.5 L Phosphorus Magnesium Total Bilirubin 1.90 H AST 85 H ALT Alkaline Phosphatase 596 H Troponin T C-Reactive Protein Total Protein 5.6 L Albumin 1.9 L Triglycerides LDL Cholesterol Direct HDL Cholesterol Urine WBC (Auto) Urine Creatinine
[2017-12-31] MEDS: NACL 0.45% 1000 ML 1,000 ML IV SCH (15:47)
[2017-12-31] MEDS: POTASSIUM CHLORIDE FEEDTUBE SCH ×3 (17:50→23:17)
--- NOTE | 2017-12-31 19:12 | Progress Note ---
Assessment and Plan Patient complaining shakes. No acute respiratory distress.Patient is on 3 litres O2. O2 saturation 97%. - Patient Problems (1) Hypotension arterial Current Visit: Yes Status: Acute Plan to address problem: Improved. Present blood pressure 176/79. (2) Diabetic ketoacidosis Current Visit: Yes Status: Acute (3) Hyperbilirubinemia Current Visit: Yes Status: Acute Plan to address problem: Management as per primary care. (4) Bilateral pleural effusion Current Visit: Yes Status: Acute Plan to address problem: Patient undergone right thoracentesis. Pleural fluid results pending. Subjective Date of service: 12/31/17 Principal diagnosis: septic shock Interval history: Patient complaining shakes. No acute respiratory distress.Patient is on 3 litres O2. O2 saturation 97%. Objective Vital Signs - 12hr 12/31/17 12/31/17 12/31/17 07:43 10:00 12:09 Temperature 98.0 F 97.9 F Pulse Rate 83 89 Respiratory 20 20 Rate Blood Pressure 158/70 162/75 Blood Pressure [Left] O2 Sat by Pulse 97 97 100 Oximetry 12/31/17 15:32 Temperature 98.1 F Pulse Rate 85 Respiratory 18 Rate Blood Pressure Blood Pressure 176/79 [Left] O2 Sat by Pulse 96 Oximetry Constitutional: no acute distress, alert, appears uncomfortable, other (Having shakes.) Eyes: icteric ENT: oropharynx moist Neck: supple, no lymphadenopathy Ascultation: Bilateral: diminished breath sounds Cardiovascular: regular rate and rhythm Gastrointestinal: normoactive bowel sounds, soft, non-tender Integumentary: normal Extremities: no cyanosis, no edema Neurologic: non-focal exam, pupils equal and round Psychiatric: anxious CBC and BMP: 12/31/17 12:50 12/31/17 12:50 ABG, PT/INR, D-dimer: ABG POC ABG pH 7.599 (7.35-7.45) H 12/27/17 04:07 POC ABG pCO2 42.4 (35-45) 12/27/17 04:07 POC ABG pO2 108 (80-105) H 12/27/17 04:07 POC ABG HCO3 41.6 12/27/17 04:07 POC ABG Total CO2 43 12/27/17 04:07 POC ABG O2 Sat 99 12/27/17 04:07 PT/INR, D-dimer PT 16.4 Sec. (12.2-14.9) H 12/28/17 13:16 INR 1.25 (0.87-1.13) H 12/28/17 13:16 Abnormal lab findings: Abnormal Labs 12/20/17 12/20/17 12/20/17 23:35 23:35 23:35 WBC RBC Hgb Hct MCV 78 L MCH 26 L RDW 15.7 H Plt Count 77 L Lymph % (Auto) [place] % (Auto) Lymph # [place] # Seg Neutrophils % Seg Neuts % (Manual) 76.0 H Lymphocytes % (Manual) 6.0 L Seg Neutrophils # Seg Neutrophils # Man 8.2 H Lymphocytes # (Manual) 0.6 L PT 18.5 H INR 1.45 H POC ABG pH POC ABG pCO2 POC ABG pO2 Sodium 130 L Potassium 3.5 L Chloride 92.3 L Carbon Dioxide 17 L BUN 27 H Creatinine 2.2 H Glucose 535 H* POC Glucose Lactic Acid Calcium 7.0 L Phosphorus Magnesium Total Bilirubin AST ALT Alkaline Phosphatase 173 H Troponin T C-Reactive Protein Total Protein 5.1 L Albumin 2.6 L Triglycerides LDL Cholesterol Direct HDL Cholesterol Urine WBC (Auto) Urine Creatinine 12/20/17 12/21/17 12/21/17 23:35 01:11 01:11 WBC RBC Hgb Hct MCV MCH RDW Plt Count Lymph % (Auto) [place] % (Auto) Lymph # [place] # Seg Neutrophils % Seg Neuts % (Manual) Lymphocytes % (Manual) Seg Neutrophils # Seg Neutrophils # Man Lymphocytes # (Manual) PT INR POC ABG pH POC ABG pCO2 POC ABG pO2 Sodium Potassium Chloride Carbon Dioxide BUN Creatinine Glucose POC Glucose Lactic Acid 8.30 H* 8.10 H* Calcium Phosphorus 1.90 L Magnesium 1.30 L Total Bilirubin AST ALT Alkaline Phosphatase Troponin T C-Reactive Protein Total Protein Albumin Triglycerides LDL Cholesterol Direct HDL Cholesterol Urine WBC (Auto) Urine Creatinine 12/21/17 12/21/17 12/21/17 01:11 01:50 02:09 WBC RBC Hgb Hct MCV MCH RDW Plt Count Lymph % (Auto) [place] % (Auto) Lymph # [place] # Seg Neutrophils % Seg Neuts % (Manual) Lymphocytes % (Manual) Seg Neutrophils # Seg Neutrophils # Man Lymphocytes # (Manual) PT INR POC ABG pH POC ABG pCO2 POC ABG pO2 Sodium 133 L Potassium 3.3 L Chloride 97.9 L Carbon Dioxide 15 L BUN 26 H Creatinine 2.1 H Glucose 504 H* POC Glucose 391 H Lactic Acid Calcium 6.4 L Phosphorus Magnesium Total Bilirubin AST ALT Alkaline Phosphatase Troponin T C-Reactive Protein Total Protein Albumin Triglycerides LDL Cholesterol Direct HDL Cholesterol Urine WBC (Auto) 38.0 H Urine Creatinine 12/21/17 12/21/17 12/21/17 03:10 03:26 05:15 WBC RBC Hgb Hct MCV MCH RDW Plt Count Lymph % (Auto) [place] % (Auto) Lymph # [place] # Seg Neutrophils % Seg Neuts % (Manual) Lymphocytes % (Manual) Seg Neutrophils # Seg Neutrophils # Man Lymphocytes # (Manual) PT INR POC ABG pH POC ABG pCO2 POC ABG pO2 Sodium 135 L Potassium 3.3 L Chloride Carbon Dioxide 14 L BUN 25 H Creatinine 1.9 H Glucose 443 H POC Glucose 389 H 407 H Lactic Acid Calcium 6.0 L Phosphorus Magnesium Total Bilirubin AST ALT Alkaline Phosphatase Troponin T C-Reactive Protein Total Protein Albumin Triglycerides LDL Cholesterol Direct HDL Cholesterol Urine WBC (Auto) Urine Creatinine 12/21/17 12/21/17 12/21/17 06:00 06:00 06:09 WBC RBC Hgb Hct MCV MCH RDW Plt Count Lymph % (Auto) [place] % (Auto) Lymph # [place] # Seg Neutrophils % Seg Neuts % (Manual) Lymphocytes % (Manual) Seg Neutrophils # Seg Neutrophils # Man Lymphocytes # (Manual) PT INR POC ABG pH POC ABG pCO2 POC ABG pO2 Sodium Potassium 3.4 L Chloride Carbon Dioxide 12 L BUN 28 H Creatinine 1.9 H Glucose 283 H POC Glucose 326 H Lactic Acid 7.90 H* Calcium 6.0 L Phosphorus Magnesium Total Bilirubin AST ALT Alkaline Phosphatase Troponin T C-Reactive Protein Total Protein Albumin Triglycerides LDL Cholesterol Direct HDL Cholesterol Urine WBC (Auto) Urine Creatinine 12/21/17 12/21/17 12/21/17 07:23 08:16 08:44 WBC RBC Hgb Hct MCV MCH RDW Plt Count Lymph % (Auto) [place] % (Auto) Lymph # [place] # Seg Neutrophils % Seg Neuts % (Manual) Lymphocytes % (Manual) Seg Neutrophils # Seg Neutrophils # Man Lymphocytes # (Manual) PT INR POC ABG pH POC ABG pCO2 POC ABG pO2 Sodium Potassium 3.3 L Chloride 107.8 H Carbon Dioxide 14 L BUN 29 H Creatinine 2.0 H Glucose 140 H POC Glucose 267 H 257 H Lactic Acid Calcium 6.2 L Phosphorus Magnesium Total Bilirubin AST ALT Alkaline Phosphatase Troponin T C-Reactive Protein Total Protein Albumin Triglycerides LDL Cholesterol Direct HDL Cholesterol Urine WBC (Auto) Urine Creatinine 12/21/17 12/21/17 12/21/17 08:44 08:44 09:02 WBC RBC Hgb Hct MCV MCH RDW Plt Count Lymph % (Auto) [place] % (Auto) Lymph # [place] # Seg Neutrophils % Seg Neuts % (Manual) Lymphocytes % (Manual) Seg Neutrophils # Seg Neutrophils # Man Lymphocytes # (Manual) PT INR POC ABG pH POC ABG pCO2 POC ABG pO2 Sodium Potassium Chloride Carbon Dioxide BUN Creatinine Glucose POC Glucose 211 H Lactic Acid 6.40 H* Calcium Phosphorus Magnesium Total Bilirubin AST ALT Alkaline Phosphatase Troponin T C-Reactive Protein 27.10 H Total Protein Albumin Triglycerides LDL Cholesterol Direct HDL Cholesterol Urine WBC (Auto) Urine Creatinine 12/21/17 12/21/17 12/21/17 09:35 10:27 11:57 WBC RBC Hgb Hct MCV MCH RDW Plt Count Lymph % (Auto) [place] % (Auto) Lymph # [place] # Seg Neutrophils % Seg Neuts % (Manual) Lymphocytes % (Manual) Seg Neutrophils # Seg Neutrophils # Man Lymphocytes # (Manual) PT INR POC ABG pH POC ABG pCO2 POC ABG pO2 Sodium Potassium Chloride Carbon Dioxide BUN Creatinine Glucose POC Glucose 182 H 142 H 134 H Lactic Acid Calcium Phosphorus Magnesium Total Bilirubin AST ALT Alkaline Phosphatase Troponin T C-Reactive Protein Total Protein Albumin Triglycerides LDL Cholesterol Direct HDL Cholesterol Urine WBC (Auto) Urine Creatinine 12/21/17 12/21/17 12/21/17 13:27 15:20 17:39 WBC RBC Hgb Hct MCV MCH RDW Plt Count Lymph % (Auto) [place] % (Auto) Lymph # [place] # Seg Neutrophils % Seg Neuts % (Manual) Lymphocytes % (Manual) Seg Neutrophils # Seg Neutrophils # Man Lymphocytes # (Manual) PT INR POC ABG pH POC ABG pCO2 POC ABG pO2 Sodium Potassium Chloride Carbon Dioxide BUN Creatinine Glucose POC Glucose 161 H 189 H Lactic Acid Calcium Phosphorus Magnesium Total Bilirubin AST ALT Alkaline Phosphatase Troponin T 0.087 H C-Reactive Protein Total Protein Albumin Triglycerides 202 H LDL Cholesterol Direct 6 L HDL Cholesterol 10 L Urine WBC (Auto) Urine Creatinine 12/21/17 12/21/17 12/21/17 17:47 19:32 20:56 WBC RBC Hgb Hct MCV MCH RDW Plt Count Lymph % (Auto) [place] % (Auto) Lymph # [place] # Seg Neutrophils % Seg Neuts % (Manual) Lymphocytes % (Manual) Seg Neutrophils # Seg Neutrophils # Man Lymphocytes # (Manual) PT INR POC ABG pH POC ABG pCO2 POC ABG pO2 Sodium Potassium Chloride 107.2 H Carbon Dioxide 14 L BUN 32 H Creatinine 2.4 H Glucose 171 H POC Glucose 160 H 136 H Lactic Acid Calcium 6.6 L Phosphorus Magnesium Total Bilirubin AST ALT Alkaline Phosphatase Troponin T C-Reactive Protein Total Protein Albumin Triglycerides LDL Cholesterol Direct HDL Cholesterol Urine WBC (Auto) Urine Creatinine 12/21/17 12/22/17 12/22/17 21:12 00:29 03:08 WBC RBC Hgb Hct MCV MCH RDW Plt Count Lymph % (Auto) [place] % (Auto) Lymph # [place] # Seg Neutrophils % Seg Neuts % (Manual) Lymphocytes % (Manual) Seg Neutrophils # Seg Neutrophils # Man Lymphocytes # (Manual) PT INR POC ABG pH 7.152 L 7.241 L POC ABG pCO2 28.1 L POC ABG pO2 62 L 113 H Sodium Potassium Chloride Carbon Dioxide BUN Creatinine Glucose POC Glucose 109 H Lactic Acid Calcium Phosphorus Magnesium Total Bilirubin AST ALT Alkaline Phosphatase Troponin T C-Reactive Protein Total Protein Albumin Triglycerides LDL Cholesterol Direct HDL Cholesterol Urine WBC (Auto) Urine Creatinine 12/22/17 12/22/17 12/22/17 04:29 04:30 04:30 WBC 21.9 H RBC Hgb Hct MCV 77 L MCH 25 L RDW 16.6 H Plt Count 57 L Lymph % (Auto) [place] % (Auto) Lymph # [place] # Seg Neutrophils % Seg Neuts % (Manual) Lymphocytes % (Manual) Seg Neutrophils # Seg Neutrophils # Man Lymphocytes # (Manual) PT INR POC ABG pH POC ABG pCO2 POC ABG pO2 Sodium Potassium Chloride Carbon Dioxide 14 L BUN 37 H Creatinine 2.7 H Glucose 145 H POC Glucose 139 H Lactic Acid Calcium 6.4 L Phosphorus Magnesium Total Bilirubin AST ALT Alkaline Phosphatase Troponin T C-Reactive Protein Total Protein Albumin Triglycerides LDL Cholesterol Direct HDL Cholesterol Urine WBC (Auto) Urine Creatinine 12/22/17 12/22/17 12/22/17 04:30 05:24 05:54 WBC RBC Hgb Hct MCV MCH RDW Plt Count Lymph % (Auto) [place] % (Auto) Lymph # [place] # Seg Neutrophils % Seg Neuts % (Manual) Lymphocytes % (Manual) Seg Neutrophils # Seg Neutrophils # Man Lymphocytes # (Manual) PT INR POC ABG pH POC ABG pCO2 POC ABG pO2 Sodium Potassium Chloride Carbon Dioxide BUN Creatinine Glucose POC Glucose 144 H 145 H Lactic Acid 3.30 H* Calcium Phosphorus Magnesium Total Bilirubin AST ALT Alkaline Phosphatase Troponin T C-Reactive Protein Total Protein Albumin Triglycerides LDL Cholesterol Direct HDL Cholesterol Urine WBC (Auto) Urine Creatinine 12/22/17 12/22/17 12/22/17 07:56 07:56 10:09 WBC RBC Hgb Hct MCV MCH RDW Plt Count Lymph % (Auto) [place] % (Auto) Lymph # [place] # Seg Neutrophils % Seg Neuts % (Manual) Lymphocytes % (Manual) Seg Neutrophils # Seg Neutrophils # Man Lymphocytes # (Manual) PT INR POC ABG pH 7.180 L POC ABG pCO2 POC ABG pO2 117 H Sodium Potassium Chloride Carbon Dioxide 14 L BUN 39 H Creatinine 2.9 H Glucose 174 H POC Glucose Lactic Acid 3.00 H* Calcium 6.7 L Phosphorus Magnesium Total Bilirubin AST ALT Alkaline Phosphatase Troponin T C-Reactive Protein Total Protein Albumin Triglycerides LDL Cholesterol Direct HDL Cholesterol Urine WBC (Auto) Urine Creatinine 12/22/17 12/22/17 12/22/17 10:12 12:19 14:23 WBC RBC Hgb Hct MCV MCH RDW Plt Count Lymph % (Auto) [place] % (Auto) Lymph # [place] # Seg Neutrophils % Seg Neuts % (Manual) Lymphocytes % (Manual) Seg Neutrophils # Seg Neutrophils # Man Lymphocytes # (Manual) PT INR POC ABG pH 7.241 L 7.285 L POC ABG pCO2 33.9 L 29.9 L POC ABG pO2 45 L 117 H Sodium Potassium Chloride Carbon Dioxide BUN Creatinine Glucose POC Glucose 185 H Lactic Acid Calcium Phosphorus Magnesium Total Bilirubin AST ALT Alkaline Phosphatase Troponin T C-Reactive Protein Total Protein Albumin Triglycerides LDL Cholesterol Direct HDL Cholesterol Urine WBC (Auto) Urine Creatinine 12/22/17 12/22/17 12/22/17 14:27 17:22 19:58 WBC RBC Hgb Hct MCV MCH RDW Plt Count Lymph % (Auto) [place] % (Auto) Lymph # [place] # Seg Neutrophils % Seg Neuts % (Manual) Lymphocytes % (Manual) Seg Neutrophils # Seg Neutrophils # Man Lymphocytes # (Manual) PT INR POC ABG pH 7.338 L POC ABG pCO2 27.6 L POC ABG pO2 167 H Sodium Potassium Chloride Carbon Dioxide BUN Creatinine Glucose POC Glucose 220 H 197 H Lactic Acid Calcium Phosphorus Magnesium Total Bilirubin AST ALT Alkaline Phosphatase Troponin T C-Reactive Protein Total Protein Albumin Triglycerides LDL Cholesterol Direct HDL Cholesterol Urine WBC (Auto) Urine Creatinine 12/22/17 12/23/17 12/23/17 21:18 05:30 05:30 WBC 14.5 H RBC Hgb Hct MCV 75 L MCH 26 L RDW 16.7 H Plt Count 26 L Lymph % (Auto) [place] % (Auto) Lymph # [place] # Seg Neutrophils % Seg Neuts % (Manual) Lymphocytes % (Manual) Seg Neutrophils # Seg Neutrophils # Man Lymphocytes # (Manual) PT INR POC ABG pH POC ABG pCO2 POC ABG pO2 Sodium Potassium Chloride Carbon Dioxide 15 L BUN 49 H Creatinine 3.5 H Glucose 123 H POC Glucose 189 H Lactic Acid Calcium 6.7 L Phosphorus Magnesium Total Bilirubin 3.60 H AST 93 H ALT 58 H Alkaline Phosphatase Troponin T C-Reactive Protein Total Protein 4.5 L Albumin 2.0 L Triglycerides LDL Cholesterol Direct HDL Cholesterol Urine WBC (Auto) Urine Creatinine 12/23/17 12/23/17 12/23/17 05:30 12:31 15:13 WBC RBC Hgb Hct MCV MCH RDW Plt Count Lymph % (Auto) [place] % (Auto) Lymph # [place] # Seg Neutrophils % Seg Neuts % (Manual) Lymphocytes % (Manual) Seg Neutrophils # Seg Neutrophils # Man Lymphocytes # (Manual) PT INR POC ABG pH POC ABG pCO2 POC ABG pO2 Sodium Potassium Chloride Carbon Dioxide BUN Creatinine Glucose POC Glucose 141 H Lactic Acid Calcium Phosphorus Magnesium Total Bilirubin AST ALT Alkaline Phosphatase Troponin T C-Reactive Protein 38.70 H Total Protein Albumin Triglycerides LDL Cholesterol Direct HDL Cholesterol Urine WBC (Auto) Urine Creatinine 65.1 H 12/23/17 12/24/17 12/24/17 18:53 00:13 05:15 WBC 14.7 H RBC Hgb Hct MCV 76 L MCH 25 L RDW 16.6 H Plt Count 20 L Lymph % (Auto) [place] % (Auto) Lymph # [place] # Seg Neutrophils % Seg Neuts % (Manual) Lymphocytes % (Manual) Seg Neutrophils # Seg Neutrophils # Man Lymphocytes # (Manual) PT INR POC ABG pH POC ABG pCO2 POC ABG pO2 Sodium Potassium Chloride Carbon Dioxide BUN Creatinine Glucose POC Glucose 205 H 207 H Lactic Acid Calcium Phosphorus Magnesium Total Bilirubin AST ALT Alkaline Phosphatase Troponin T C-Reactive Protein Total Protein Albumin Triglycerides LDL Cholesterol Direct HDL Cholesterol Urine WBC (Auto) Urine Creatinine 12/24/17 12/24/17 12/24/17 05:15 05:51 08:31 WBC RBC Hgb Hct MCV MCH RDW Plt Count Lymph % (Auto) [place] % (Auto) Lymph # [place] # Seg Neutrophils % Seg Neuts % (Manual) Lymphocytes % (Manual) Seg Neutrophils # Seg Neutrophils # Man Lymphocytes # (Manual) PT INR POC ABG pH POC ABG pCO2 POC ABG pO2 Sodium Potassium Chloride 107.2 H Carbon Dioxide 19 L BUN 67 H Creatinine 4.0 H Glucose 150 H POC Glucose 176 H 251 H Lactic Acid Calcium 7.2 L Phosphorus Magnesium Total Bilirubin 5.60 H AST 47 H ALT Alkaline Phosphatase Troponin T C-Reactive Protein Total Protein 4.3 L Albumin 1.9 L Triglycerides LDL Cholesterol Direct HDL Cholesterol Urine WBC (Auto) Urine Creatinine 12/24/17 12/24/17 12/24/17 11:53 17:19 21:16 WBC RBC Hgb Hct MCV MCH RDW Plt Count Lymph % (Auto) [place] % (Auto) Lymph # [place] # Seg Neutrophils % Seg Neuts % (Manual) Lymphocytes % (Manual) Seg Neutrophils # Seg Neutrophils # Man Lymphocytes # (Manual) PT INR POC ABG pH POC ABG pCO2 POC ABG pO2 Sodium Potassium Chloride Carbon Dioxide BUN Creatinine Glucose POC Glucose 274 H 302 H 345 H Lactic Acid Calcium Phosphorus Magnesium Total Bilirubin AST ALT Alkaline Phosphatase Troponin T C-Reactive Protein Total Protein Albumin Triglycerides LDL Cholesterol Direct HDL Cholesterol Urine WBC (Auto) Urine Creatinine 12/25/17 12/25/17 12/25/17 05:55 05:55 05:55 WBC 13.7 H RBC Hgb Hct 30.2 L MCV 75 L MCH 25 L RDW 17.2 H Plt Count 24 L Lymph % (Auto) [place] % (Auto) Lymph # [place] # Seg Neutrophils % Seg Neuts % (Manual) 85.0 H Lymphocytes % (Manual) 3.0 L Seg Neutrophils # Seg Neutrophils # Man 11.6 H Lymphocytes # (Manual) 0.4 L PT INR POC ABG pH POC ABG pCO2 POC ABG pO2 Sodium Potassium 3.5 L Chloride Carbon Dioxide BUN 81 H Creatinine 3.9 H Glucose 471 H POC Glucose Lactic Acid Calcium 7.5 L Phosphorus Magnesium Total Bilirubin 7.70 H AST ALT Alkaline Phosphatase 234 H Troponin T C-Reactive Protein 19.90 H Total Protein 4.9 L Albumin 1.6 L Triglycerides LDL Cholesterol Direct HDL Cholesterol Urine WBC (Auto) Urine Creatinine 12/25/17 12/25/17 12/25/17 08:21 09:41 12:14 WBC RBC Hgb Hct MCV MCH RDW Plt Count Lymph % (Auto) [place] % (Auto) Lymph # [place] # Seg Neutrophils % Seg Neuts % (Manual) Lymphocytes % (Manual) Seg Neutrophils # Seg Neutrophils # Man Lymphocytes # (Manual) PT INR POC ABG pH POC ABG pCO2 POC ABG pO2 Sodium Potassium Chloride Carbon Dioxide BUN Creatinine Glucose POC Glucose 468 H 405 H Lactic Acid 2.10 H* Calcium Phosphorus Magnesium Total Bilirubin AST ALT Alkaline Phosphatase Troponin T C-Reactive Protein Total Protein Albumin Triglycerides LDL Cholesterol Direct HDL Cholesterol Urine WBC (Auto) Urine Creatinine 12/25/17 12/25/17 12/26/17 16:13 21:46 06:54 WBC 16.6 H RBC Hgb 10.0 L Hct 29.3 L MCV 74 L MCH 25 L RDW 16.5 H Plt Count 27 L Lymph % (Auto) [place] % (Auto) Lymph # [place] # Seg Neutrophils % Seg Neuts % (Manual) Lymphocytes % (Manual) Seg Neutrophils # Seg Neutrophils # Man Lymphocytes # (Manual) PT INR POC ABG pH POC ABG pCO2 POC ABG pO2 Sodium Potassium Chloride Carbon Dioxide BUN Creatinine Glucose POC Glucose 264 H 249 H Lactic Acid Calcium Phosphorus Magnesium Total Bilirubin AST ALT Alkaline Phosphatase Troponin T C-Reactive Protein Total Protein Albumin Triglycerides LDL Cholesterol Direct HDL Cholesterol Urine WBC (Auto) Urine Creatinine 12/26/17 12/26/17 12/26/17 06:54 07:57 11:36 WBC RBC Hgb Hct MCV MCH RDW Plt Count Lymph % (Auto) [place] % (Auto) Lymph # [place] # Seg Neutrophils % Seg Neuts % (Manual) Lymphocytes % (Manual) Seg Neutrophils # Seg Neutrophils # Man Lymphocytes # (Manual) PT INR POC ABG pH POC ABG pCO2 POC ABG pO2 Sodium Potassium 3.0 L Chloride 97.7 L Carbon Dioxide 32 H BUN 78 H Creatinine 3.8 H Glucose 353 H POC Glucose 384 H 274 H Lactic Acid Calcium 7.2 L Phosphorus Magnesium Total Bilirubin 6.00 H AST 50 H ALT Alkaline Phosphatase 265 H Troponin T C-Reactive Protein Total Protein 4.8 L Albumin 1.4 L Triglycerides LDL Cholesterol Direct HDL Cholesterol Urine WBC (Auto) Urine Creatinine 12/26/17 12/26/17 12/27/17 18:33 21:21 02:04 WBC RBC Hgb Hct MCV MCH RDW Plt Count Lymph % (Auto) [place] % (Auto) Lymph # [place] # Seg Neutrophils % Seg Neuts % (Manual) Lymphocytes % (Manual) Seg Neutrophils # Seg Neutrophils # Man Lymphocytes # (Manual) PT INR POC ABG pH POC ABG pCO2 POC ABG pO2 Sodium Potassium Chloride Carbon Dioxide BUN Creatinine Glucose POC Glucose 198 H 182 H 200 H Lactic Acid Calcium Phosphorus Magnesium Total Bilirubin AST ALT Alkaline Phosphatase Troponin T C-Reactive Protein Total Protein Albumin Triglycerides LDL Cholesterol Direct HDL Cholesterol Urine WBC (Auto) Urine Creatinine 12/27/17 12/27/17 12/27/17 04:07 05:24 06:40 WBC 16.8 H RBC Hgb 9.7 L Hct 29.5 L MCV 74 L MCH 24 L RDW 16.9 H Plt Count 43 L Lymph % (Auto) [place] % (Auto) Lymph # [place] # Seg Neutrophils % Seg Neuts % (Manual) Lymphocytes % (Manual) Seg Neutrophils # Seg Neutrophils # Man Lymphocytes # (Manual) PT INR POC ABG pH 7.599 H POC ABG pCO2 POC ABG pO2 108 H Sodium Potassium Chloride Carbon Dioxide BUN Creatinine Glucose POC Glucose 156 H Lactic Acid Calcium Phosphorus Magnesium Total Bilirubin AST ALT Alkaline Phosphatase Troponin T C-Reactive Protein Total Protein Albumin Triglycerides LDL Cholesterol Direct HDL Cholesterol Urine WBC (Auto) Urine Creatinine 12/27/17 12/27/17 12/27/17 06:40 11:03 15:50 WBC RBC Hgb Hct MCV MCH RDW Plt Count Lymph % (Auto) [place] % (Auto) Lymph # [place] # Seg Neutrophils % Seg Neuts % (Manual) Lymphocytes % (Manual) Seg Neutrophils # Seg Neutrophils # Man Lymphocytes # (Manual) PT INR POC ABG pH POC ABG pCO2 POC ABG pO2 Sodium Potassium 3.5 L Chloride Carbon Dioxide 36 H BUN 81 H Creatinine 3.8 H Glucose 153 H POC Glucose 220 H 275 H Lactic Acid Calcium 7.6 L Phosphorus Magnesium Total Bilirubin AST ALT Alkaline Phosphatase Troponin T C-Reactive Protein Total Protein Albumin Triglycerides LDL Cholesterol Direct HDL Cholesterol Urine WBC (Auto) Urine Creatinine 12/27/17 12/27/17 12/28/17 17:23 21:44 02:05 WBC RBC Hgb Hct MCV MCH RDW Plt Count Lymph % (Auto) [place] % (Auto) Lymph # [place] # Seg Neutrophils % Seg Neuts % (Manual) Lymphocytes % (Manual) Seg Neutrophils # Seg Neutrophils # Man Lymphocytes # (Manual) PT INR POC ABG pH POC ABG pCO2 POC ABG pO2 Sodium Potassium Chloride Carbon Dioxide BUN Creatinine Glucose POC Glucose 256 H 180 H 148 H Lactic Acid Calcium Phosphorus Magnesium Total Bilirubin AST ALT Alkaline Phosphatase Troponin T C-Reactive Protein Total Protein Albumin Triglycerides LDL Cholesterol Direct HDL Cholesterol Urine WBC (Auto) Urine Creatinine 12/28/17 12/28/17 12/28/17 04:45 05:00 08:14 WBC RBC Hgb Hct MCV MCH RDW Plt Count Lymph % (Auto) [place] % (Auto) Lymph # [place] # Seg Neutrophils % Seg Neuts % (Manual) Lymphocytes % (Manual) Seg Neutrophils # Seg Neutrophils # Man Lymphocytes # (Manual) PT INR POC ABG pH POC ABG pCO2 POC ABG pO2 Sodium 147 H Potassium 3.3 L Chloride Carbon Dioxide 32 H BUN 82 H Creatinine 3.9 H Glucose 212 H POC Glucose 205 H 180 H Lactic Acid Calcium 7.6 L Phosphorus Magnesium Total Bilirubin AST ALT Alkaline Phosphatase Troponin T C-Reactive Protein Total Protein Albumin Triglycerides LDL Cholesterol Direct HDL Cholesterol Urine WBC (Auto) Urine Creatinine 12/28/17 12/28/17 12/28/17 12:07 13:16 16:28 WBC RBC Hgb Hct MCV MCH RDW Plt Count Lymph % (Auto) [place] % (Auto) Lymph # [place] # Seg Neutrophils % Seg Neuts % (Manual) Lymphocytes % (Manual) Seg Neutrophils # Seg Neutrophils # Man Lymphocytes # (Manual) PT 16.4 H INR 1.25 H POC ABG pH POC ABG pCO2 POC ABG pO2 Sodium Potassium Chloride Carbon Dioxide BUN Creatinine Glucose POC Glucose 213 H 126 H Lactic Acid Calcium Phosphorus Magnesium Total Bilirubin AST ALT Alkaline Phosphatase Troponin T C-Reactive Protein Total Protein Albumin Triglycerides LDL Cholesterol Direct HDL Cholesterol Urine WBC (Auto) Urine Creatinine 12/28/17 12/29/17 12/29/17 21:41 06:36 10:02 WBC 17.1 H RBC Hgb 9.3 L Hct 28.5 L MCV 76 L MCH 25 L RDW 17.2 H Plt Count 107 L D Lymph % (Auto) 6.8 L [place] % (Auto) 7.4 H Lymph # [place] # 1.3 H Seg Neutrophils % 85.0 H Seg Neuts % (Manual) Lymphocytes % (Manual) Seg Neutrophils # 14.5 H Seg Neutrophils # Man Lymphocytes # (Manual) PT INR POC ABG pH POC ABG pCO2 POC ABG pO2 Sodium Potassium Chloride Carbon Dioxide BUN Creatinine Glucose POC Glucose 201 H 243 H Lactic Acid Calcium Phosphorus Magnesium Total Bilirubin AST ALT Alkaline Phosphatase Troponin T C-Reactive Protein Total Protein Albumin Triglycerides LDL Cholesterol Direct HDL Cholesterol Urine WBC (Auto) Urine Creatinine 12/29/17 12/29/17 12/29/17 10:02 11:49 17:33 WBC RBC Hgb Hct MCV MCH RDW Plt Count Lymph % (Auto) [place] % (Auto) Lymph # [place] # Seg Neutrophils % Seg Neuts % (Manual) Lymphocytes % (Manual) Seg Neutrophils # Seg Neutrophils # Man Lymphocytes # (Manual) PT INR POC ABG pH POC ABG pCO2 POC ABG pO2 Sodium 151 H Potassium 3.3 L Chloride 108.8 H Carbon Dioxide BUN 81 H Creatinine 3.8 H Glucose 166 H POC Glucose 207 H 110 H Lactic Acid Calcium 7.7 L Phosphorus Magnesium Total Bilirubin 2.40 H AST 48 H ALT Alkaline Phosphatase 239 H Troponin T C-Reactive Protein Total Protein 5.5 L Albumin 1.7 L Triglycerides LDL Cholesterol Direct HDL Cholesterol Urine WBC (Auto) Urine Creatinine 12/29/17 12/30/17 12/30/17 22:21 01:08 05:30 WBC 16.6 H RBC 3.63 L Hgb 9.1 L Hct 26.7 L MCV 74 L MCH 25 L RDW 16.9 H Plt Count 119 L Lymph % (Auto) 7.5 L [place] % (Auto) 7.5 H Lymph # [place] # 1.2 H Seg Neutrophils % 83.5 H Seg Neuts % (Manual) Lymphocytes % (Manual) Seg Neutrophils # 13.9 H Seg Neutrophils # Man Lymphocytes # (Manual) PT INR POC ABG pH POC ABG pCO2 POC ABG pO2 Sodium Potassium Chloride Carbon Dioxide BUN Creatinine Glucose POC Glucose 242 H 161 H Lactic Acid Calcium Phosphorus Magnesium Total Bilirubin AST ALT Alkaline Phosphatase Troponin T C-Reactive Protein Total Protein Albumin Triglycerides LDL Cholesterol Direct HDL Cholesterol Urine WBC (Auto) Urine Creatinine 12/30/17 12/30/17 12/30/17 05:30 05:39 06:09 WBC RBC Hgb Hct MCV MCH RDW Plt Count Lymph % (Auto) [place] % (Auto) Lymph # [place] # Seg Neutrophils % Seg Neuts % (Manual) Lymphocytes % (Manual) Seg Neutrophils # Seg Neutrophils # Man Lymphocytes # (Manual) PT INR POC ABG pH POC ABG pCO2 POC ABG pO2 Sodium 146 H Potassium 2.9 L* Chloride Carbon Dioxide BUN 80 H Creatinine 3.5 H Glucose 160 H POC Glucose 113 H 189 H Lactic Acid Calcium 7.5 L Phosphorus Magnesium Total Bilirubin 2.30 H AST 87 H ALT Alkaline Phosphatase 403 H Troponin T C-Reactive Protein Total Protein 5.1 L Albumin 1.5 L Triglycerides LDL Cholesterol Direct HDL Cholesterol Urine WBC (Auto) Urine Creatinine 12/30/17 12/30/17 12/30/17 11:02 16:40 21:51 WBC RBC Hgb Hct MCV MCH RDW Plt Count Lymph % (Auto) [place] % (Auto) Lymph # [place] # Seg Neutrophils % Seg Neuts % (Manual) Lymphocytes % (Manual) Seg Neutrophils # Seg Neutrophils # Man Lymphocytes # (Manual) PT INR POC ABG pH POC ABG pCO2 POC ABG pO2 Sodium Potassium Chloride Carbon Dioxide BUN Creatinine Glucose POC Glucose 265 H 224 H 262 H Lactic Acid Calcium Phosphorus Magnesium Total Bilirubin AST ALT Alkaline Phosphatase Troponin T C-Reactive Protein Total Protein Albumin Triglycerides LDL Cholesterol Direct HDL Cholesterol Urine WBC (Auto) Urine Creatinine 12/31/17 12/31/17 12/31/17 02:11 06:23 11:05 WBC RBC Hgb Hct MCV MCH RDW Plt Count Lymph % (Auto) [place] % (Auto) Lymph # [place] # Seg Neutrophils % Seg Neuts % (Manual) Lymphocytes % (Manual) Seg Neutrophils # Seg Neutrophils # Man Lymphocytes # (Manual) PT INR POC ABG pH POC ABG pCO2 POC ABG pO2 Sodium Potassium Chloride Carbon Dioxide BUN Creatinine Glucose POC Glucose 171 H 147 H 199 H Lactic Acid Calcium Phosphorus Magnesium Total Bilirubin AST ALT Alkaline Phosphatase Troponin T C-Reactive Protein Total Protein Albumin Triglycerides LDL Cholesterol Direct HDL Cholesterol Urine WBC (Auto) Urine Creatinine 12/31/17 12/31/17 12/31/17 12:50 12:50 14:52 WBC 13.2 H RBC 3.28 L Hgb 8.3 L Hct 24.8 L MCV 76 L MCH 25 L RDW 17.0 H Plt Count 131 L Lymph % (Auto) 7.6 L [place] % (Auto) Lymph # 1.0 L [place] # Seg Neutrophils % 84.8 H Seg Neuts % (Manual) Lymphocytes % (Manual) Seg Neutrophils # 11.2 H Seg Neutrophils # Man Lymphocytes # (Manual) PT INR POC ABG pH POC ABG pCO2 POC ABG pO2 Sodium 147 H Potassium 3.1 L Chloride 107.9 H Carbon Dioxide BUN 74 H Creatinine 3.0 H Glucose 184 H POC Glucose 202 H Lactic Acid Calcium 7.5 L Phosphorus Magnesium Total Bilirubin 1.90 H AST 85 H ALT Alkaline Phosphatase 596 H Troponin T C-Reactive Protein Total Protein 5.6 L Albumin 1.9 L Triglycerides LDL Cholesterol Direct HDL Cholesterol Urine WBC (Auto) Urine Creatinine 12/31/17 18:10 WBC RBC Hgb Hct MCV MCH RDW Plt Count Lymph % (Auto) [place] % (Auto) Lymph # [place] # Seg Neutrophils % Seg Neuts % (Manual) Lymphocytes % (Manual) Seg Neutrophils # Seg Neutrophils # Man Lymphocytes # (Manual) PT INR POC ABG pH POC ABG pCO2 POC ABG pO2 Sodium Potassium Chloride Carbon Dioxide BUN Creatinine Glucose POC Glucose 189 H Lactic Acid Calcium Phosphorus Magnesium Total Bilirubin AST ALT Alkaline Phosphatase Troponin T C-Reactive Protein Total Protein Albumin Triglycerides LDL Cholesterol Direct HDL Cholesterol Urine WBC (Auto) Urine Creatinine Chest x-ray: report reviewed (Moderate left pleural effusion.), image reviewed
[2017-12-31] MEDS: LANTUS SUB-Q SCH (23:14)
[2018-01-01] MEDS: POTASSIUM CHLORIDE FEEDTUBE SCH ×6 (01:39→22:10)
[2018-01-01] MEDS: VANCOMYCIN PO PO SCH ×4 (01:46→18:18)
[2018-01-01] MEDS: HumuLIN R SUB-Q SCH ×6 (02:06→22:00)
[2018-01-01 06:28] LABS: Hematocrit 23.8 % (30.3-42.9); Hemoglobin 7.9 gm/dl (10.1-14.3); Mean Corpuscular HGB Conc 33 % (30-34); Mean Corpuscular Hemoglobin 25 pg (28-32); Mean Corpuscular Volume 75 fl (79-97); Platelet Count 121 K/mm3 (140-440); Red Blood Count 3.17 M/mm3 (3.65-5.03); Red Cell Distribution Width 16.5 % (13.2-15.2)
[2018-01-01 06:50] LABS: Calcium 7.5 mg/dL (8.4-10.2)
--- NOTE | 2018-01-01 06:59 | Progress Note ---
Assessment and Plan 1. Acute kidney injury: Vasomotor / hemodynamic MARLENE in the setting of septic shock. Renal function continue to improve. 2. Septic shock: In the setting of Acute pyelonephritis and E.Coli bacteremia. Off Levophed. 3. Left hydronephrosis: 4. HTN: Add Amlodipine. 5. Electrolytes: Hypernatremia, on 1/2 NS, increase water flushes. 6. DKA: Improved. 7. Acute Encephalopathy: Improving. 8. Thrombocytopenia: Improving. D/w her at the bedside. Subjective Date of service: 01/01/18 Principal diagnosis: septic shock Interval history: Patient was seen and examined at the bedside. Per she is doing better. Objective - Vital Signs Vital signs: Vital Signs - 12hr 12/31/17 12/31/17 12/31/17 20:33 20:34 20:50 Temperature 98.5 F Pulse Rate 90 90 Respiratory 18 Rate Blood Pressure 166/72 O2 Sat by Pulse 94 Oximetry 12/31/17 12/31/17 01/01/18 22:18 23:48 02:23 Temperature 98.5 F Pulse Rate 101 H Respiratory 20 20 Rate Blood Pressure 174/80 O2 Sat by Pulse 97 94 Oximetry 01/01/18 05:09 Temperature 98.5 F Pulse Rate 87 Respiratory 20 Rate Blood Pressure 172/88 O2 Sat by Pulse 97 Oximetry - General Appearance General appearance: well-developed, appears stated age, other (no distress, NG tube noted) EENT: ATNC, PERRL, hearing intact Neck: supple Respiratory: Present: Clear to Ascultation Cardiology: regular, S1S2, no murmurs Gastrointestinal: normoactive bowel sounds, no tenderness Integumentary: warm and dry Neurologic: no focal deficit, no asterixis Musculoskeletal: other (trace pedal edema noted) Psychiatric: cooperative - Lab 01/01/18 04:52 01/01/18 04:52 Most recent lab results Calcium 7.5 mg/dL (8.4-10.2) L 01/01/18 04:52 Phosphorus 3.50 mg/dL (2.5-4.5) 12/29/17 10:02 Magnesium 2.30 mg/dL (1.7-2.3) 12/29/17 10:02 Urine Creatinine 65.1 mg/dL (0.1-20.0) H 12/23/17 15:13 Urine Sodium 26 mmol/L 12/23/17 15:13
[2018-01-01 09:45] LABS: LDH,Body Fluid 73
[2018-01-01 09:46] LABS: Cholesterol,Body Fluid < 15; Total Protein,Body Fluid < 3.0 (15.0-45.0)
--- NOTE | 2018-01-01 09:49 | Progress Note ---
Assessment and Plan Assessment and plan: 52-year-old woman with a history of hypertension, diabetes comes to emergency room with complaints of fever, nausea vomiting and diarrhea that started yesterday. - Septic shock: severe sepsis due to ESBL ecoli UTI; pyelonephritis, and bacteremia ID note reviewed and appreciated Continue antibiotics per ID recommendations -continue isolation now for ESBL -per IR not optimal candidate for nephrostomy tube due to minimally distented collecting system and thrombocytopenia. -monitor platelets and kidney function -upon discharge will need IV ertapenem x 14 days - DKA: Improved continue insulins - Uncontrolled Type 2 DM: Insulin dose adjusted - Acute kidney injury: Nephrology following, kidney function improving - Hypokalemia: Potassium supplements ordered - Thrombocytopenia: ? 2/2 sepsis, improving - DVT prophylaxis: SCDs Acute respiratory failure with hypoxia, cont oxygen supplement, pulm on board Will order Swallow eval and try to give oral diet, also plan to dc amin tomorrow Debility; continue PT Hospitalist Physical - Constitutional Vitals: Temp Pulse Resp BP Pulse Ox 98.5 F 95 H 20 182/93 96 01/01/18 07:39 01/01/18 07:39 01/01/18 07:39 01/01/18 07:39 01/01/18 07:39 General appearance: Present: no acute distress Results - Labs CBC & Chem 7: 01/01/18 04:52 01/01/18 04:52 Labs: Laboratory Last Values WBC 13.1 K/mm3 (4.5-11.0) H 01/01/18 04:52 RBC 3.17 M/mm3 (3.65-5.03) L 01/01/18 04:52 Hgb 7.9 gm/dl (10.1-14.3) L 01/01/18 04:52 Hct 23.8 % (30.3-42.9) L 01/01/18 04:52 MCV 75 fl (79-97) L 01/01/18 04:52 MCH 25 pg (28-32) L 01/01/18 04:52 MCHC 33 % (30-34) 01/01/18 04:52 RDW 16.5 % (13.2-15.2) H 01/01/18 04:52 Plt Count 121 K/mm3 (140-440) L 01/01/18 04:52 Lymph % (Auto) 7.6 % (13.4-35.0) L 12/31/17 12:50 [place] % (Auto) 6.0 % (0.0-7.3) 12/31/17 12:50 Eos % (Auto) 1.0 % (0.0-4.3) 12/31/17 12:50 Baso % (Auto) 0.6 % (0.0-1.8) 12/31/17 12:50 Lymph # 1.0 K/mm3 (1.2-5.4) L 12/31/17 12:50 [place] # 0.8 K/mm3 (0.0-0.8) 12/31/17 12:50 Eos # 0.1 K/mm3 (0.0-0.4) 12/31/17 12:50 Baso # 0.1 K/mm3 (0.0-0.1) 12/31/17 12:50 Add Manual Diff Complete 12/25/17 05:55 Total Counted 100 12/25/17 05:55 Seg Neutrophils % 84.8 % (40.0-70.0) H 12/31/17 12:50 Seg Neuts % (Manual) 85.0 % (40.0-70.0) H 12/25/17 05:55 Band Neutrophils % 6.0 % 12/25/17 05:55 Lymphocytes % (Manual) 3.0 % (13.4-35.0) L 12/25/17 05:55 Reactive Lymphs % (Man) 1.0 % 12/25/17 05:55 Monocytes % (Manual) 5.0 % (0.0-7.3) 12/25/17 05:55 Eosinophils % (Manual) 0 % (0.0-4.3) 12/25/17 05:55 Basophils % (Manual) 0 % (0.0-1.8) 12/25/17 05:55 Metamyelocytes % 0 % 12/25/17 05:55 Myelocytes % 0 % 12/25/17 05:55 Promyelocytes % 0 % 12/25/17 05:55 Blast Cells % 0 % 12/25/17 05:55 Nucleated RBC % Not Reportable 12/25/17 05:55 Seg Neutrophils # 11.2 K/mm3 (1.8-7.7) H 12/31/17 12:50 Seg Neutrophils # Man 11.6 K/mm3 (1.8-7.7) H 12/25/17 05:55 Band Neutrophils # 0.8 K/mm3 12/25/17 05:55 Lymphocytes # (Manual) 0.4 K/mm3 (1.2-5.4) L 12/25/17 05:55 Abs React Lymphs (Man) 0.1 K/mm3 12/25/17 05:55 Monocytes # (Manual) 0.7 K/mm3 (0.0-0.8) 12/25/17 05:55 Eosinophils # (Manual) 0.0 K/mm3 (0.0-0.4) 12/25/17 05:55 Basophils # (Manual) 0.0 K/mm3 (0.0-0.1) 12/25/17 05:55 Metamyelocytes # 0.0 K/mm3 12/25/17 05:55 Myelocytes # 0.0 K/mm3 12/25/17 05:55 Promyelocytes # 0.0 K/mm3 12/25/17 05:55 Blast Cells # 0.0 K/mm3 12/25/17 05:55 WBC Morphology Not Reportable 12/25/17 05:55 Hypersegmented Neuts Not Reportable 12/25/17 05:55 Hyposegmented Neuts Not Reportable 12/25/17 05:55 Hypogranular Neuts Not Reportable 12/25/17 05:55 Smudge Cells Not Reportable 12/25/17 05:55 Toxic Granulation Not Reportable 12/25/17 05:55 Toxic Vacuolation Not Reportable 12/25/17 05:55 Dohle Bodies Not Reportable 12/25/17 05:55 Pelger-Huet Anomaly Not Reportable 12/25/17 05:55 Pooja Rods Not Reportable 12/25/17 05:55 Platelet Estimate Consistent w auto 12/25/17 05:55 Clumped Platelets Not Reportable 12/25/17 05:55 Plt Clumps, EDTA Not Reportable 12/25/17 05:55 Large Platelets Not Reportable 12/25/17 05:55 Giant Platelets Not Reportable 12/25/17 05:55 Platelet Satelliting Not Reportable 12/25/17 05:55 Plt Morphology Comment Not Reportable 12/25/17 05:55 RBC Morphology Not Reportable 12/25/17 05:55 Dimorphic RBCs Not Reportable 12/25/17 05:55 Polychromasia Not Reportable 12/25/17 05:55 Hypochromasia 1+ 12/25/17 05:55 Poikilocytosis Not Reportable 12/25/17 05:55 Anisocytosis 1+ 12/25/17 05:55 Microcytosis 1+ 12/25/17 05:55 Macrocytosis Not Reportable 12/25/17 05:55 Spherocytes Not Reportable 12/25/17 05:55 Pappenheimer Bodies Not Reportable 12/25/17 05:55 Sickle Cells Not Reportable 12/25/17 05:55 Target Cells Not Reportable 12/25/17 05:55 Tear Drop Cells Not Reportable 12/25/17 05:55 Ovalocytes Not Reportable 12/25/17 05:55 Helmet Cells Not Reportable 12/25/17 05:55 Wood-Marrowbone Bodies Not Reportable 12/25/17 05:55 [place] Rings Not Reportable 12/25/17 05:55 [place] Cells Not Reportable 12/25/17 05:55 Bite Cells Not Reportable 12/25/17 05:55 Crenated Cell Not Reportable 12/25/17 05:55 Elliptocytes Not Reportable 12/25/17 05:55 Acanthocytes (Spur) Not Reportable 12/25/17 05:55 Rouleaux Not Reportable 12/25/17 05:55 Hemoglobin C Crystals Not Reportable 12/25/17 05:55 Schistocytes Not Reportable 12/25/17 05:55 Malaria parasites Not Reportable 12/25/17 05:55 López Bodies Not Reportable 12/25/17 05:55 Hem Pathologist Commnt No 12/25/17 05:55 PT 16.4 Sec. (12.2-14.9) H 12/28/17 13:16 INR 1.25 (0.87-1.13) H 12/28/17 13:16 Heparin Anti-Xa, Unfract Negative (Negative) 12/23/17 10:15 POC ABG pH 7.599 (7.35-7.45) H 12/27/17 04:07 POC ABG pCO2 42.4 (35-45) 12/27/17 04:07 POC ABG pO2 108 (80-105) H 12/27/17 04:07 POC ABG HCO3 41.6 12/27/17 04:07 POC ABG Total CO2 43 12/27/17 04:07 POC ABG O2 Sat 99 12/27/17 04:07 POC ABG Base Excess 20 12/27/17 04:07 VBG pH 7.320 (7.320-7.420) 12/20/17 23:35 FiO2 35 % 12/27/17 04:07 Sodium 151 mmol/L (137-145) H 01/01/18 04:52 Potassium 4.7 mmol/L (3.6-5.0) D 01/01/18 04:52 Chloride 116.6 mmol/L (98-107) H 01/01/18 04:52 Carbon Dioxide 24 mmol/L (22-30) 01/01/18 04:52 Anion Gap 15 mmol/L 01/01/18 04:52 BUN 65 mg/dL (7-17) H 01/01/18 04:52 Creatinine 2.8 mg/dL (0.7-1.2) H 01/01/18 04:52 Estimated GFR 18 ml/min 01/01/18 04:52 BUN/Creatinine Ratio 23 % 01/01/18 04:52 Glucose 172 mg/dL (65-100) H 01/01/18 04:52 POC Glucose 202 (70-105) H 01/01/18 05:20 Lactic Acid 2.10 mmol/L (0.7-2.0) H* 12/25/17 09:41 Calcium 7.5 mg/dL (8.4-10.2) L 01/01/18 04:52 Phosphorus 3.50 mg/dL (2.5-4.5) 12/29/17 10:02 Magnesium 2.30 mg/dL (1.7-2.3) 12/29/17 10:02 Total Bilirubin 1.90 mg/dL (0.1-1.2) H 12/31/17 12:50 AST 85 units/L (5-40) H 12/31/17 12:50 ALT 50 units/L (7-56) 12/31/17 12:50 Alkaline Phosphatase 596 units/L (35-129) H 12/31/17 12:50 Ammonia 28.0 umol/L (25-60) 12/25/17 09:41 Total Creatine Kinase 117 units/L (30-135) 12/21/17 13:27 CK-MB (CK-2) 3.9 ng/mL (0.0-4.0) 12/21/17 13:27 CK-MB (CK-2) Rel Index 3.3 (0-4) 12/21/17 13:27 Troponin T 0.087 ng/mL (0.00-0.029) H 12/21/17 13:27 C-Reactive Protein 19.90 mg/dL (0.00-1.30) H 12/25/17 05:55 Total Protein 5.6 g/dL (6.3-8.2) L 12/31/17 12:50 Albumin 1.9 g/dL (3.9-5) L 12/31/17 12:50 Albumin/Globulin Ratio 0.5 % 12/31/17 12:50 Triglycerides 202 mg/dL (2-149) H 12/21/17 13:27 Cholesterol 57 mg/dL (50-199) 12/21/17 13:27 LDL Cholesterol Direct 6 mg/dL (50-130) L 12/21/17 13:27 HDL Cholesterol 10 mg/dL (40-59) L 12/21/17 13:27 Cholesterol/HDL Ratio 5.70 % 12/21/17 13:27 Serotonin Release Assay See scanned result 12/23/17 10:15 Urine Color Yellow (Yellow) 12/21/17 01:50 Urine Turbidity Clear (Clear) 12/21/17 01:50 Urine pH 5.0 (5.0-7.0) 12/21/17 01:50 Ur Specific [place] 1.015 (1.003-1.030) 12/21/17 01:50 Urine Protein <15 mg/dl mg/dL (Negative) 12/21/17 01:50 Urine Glucose (UA) >=500 mg/dL (Negative) 12/21/17 01:50 Urine Ketones Neg mg/dL (Negative) 12/21/17 01:50 Urine Blood Neg (Negative) 12/21/17 01:50 Urine Nitrite Neg (Negative) 12/21/17 01:50 Urine Bilirubin Neg (Negative) 12/21/17 01:50 Urine Urobilinogen < 2.0 mg/dL (<2.0) 12/21/17 01:50 Ur Leukocyte Esterase Sm (Negative) 12/21/17 01:50 Urine WBC (Auto) 38.0 /HPF (0.0-6.0) H 12/21/17 01:50 Urine RBC (Auto) 3.0 /HPF (0.0-6.0) 12/21/17 01:50 U Epithel Cells (Auto) 3.0 /HPF (0-13.0) 12/21/17 01:50 Urine Bacteria (Auto) 2+ /HPF (Negative) 12/21/17 01:50 Urine Creatinine 65.1 mg/dL (0.1-20.0) H 12/23/17 15:13 Urine Sodium 26 mmol/L 12/23/17 15:13 Fluid Type Pleural 12/29/17 15:45 Fluid Color Dark yellow 12/29/17 15:45 Fluid Appearance Clear 12/29/17 15:45 Fluid WBC 93 /mm3 12/29/17 15:45 Fluid RBC 125 /mm3 12/29/17 15:45 Fluid Seg Neutrophils 42.0 % 12/29/17 15:45 Fluid Lymphocytes 5.0 % 12/29/17 15:45 Fluid Reactive Lymphs 0 % 12/29/17 15:45 Fluid Monocytes 53.0 % 12/29/17 15:45 Fluid Eosinophils 0 % 12/29/17 15:45 Fluid Basophils 0 % 12/29/17 15:45 Fluid Comment Diff performed 12/29/17 15:45 Random Vancomycin 15.4 ug/mL (0-40.0) 12/22/17 Unknown Heparin-induced Plt Ab Negative (Negative) 12/23/17 10:15 UF Heparin High Dose 0 % Release 12/23/17 10:15 BR[place]NEY UFH Low Dose 0.1 0 % Release 12/23/17 10:15 [place]NEY UFH Low Dose 0.5 0 % Release 12/23/17 10:15 C. difficile Toxin A&B Negative (Negative) 12/21/17 04:52 Hepatitis A IgM Ab Non-reactive (NonReactive) 12/21/17 08:44 Hep Bs Antigen Non-reactive (Negative) 12/21/17 08:44 Hep B Core IgM Ab Non-reactive (NonReactive) 12/21/17 08:44 Hepatitis C Antibody Non-reactive (NonReactive) 12/21/17 08:44
[2018-01-01] MEDS: MERREM 1,000 MG in NACL 0.9% 100 ML IV SCH (10:46)
[2018-01-01] MEDS: SODIUM CHLORIDE FLUSH SYRINGE 10 ML IV SCH (10:49)
--- NOTE | 2018-01-01 11:33 | Progress Note ---
Assessment and Plan Assessment: 1) Severe Sepsis with septic +/- hypovolemic shock: still persistent leukocytosis, but better. Initial Etiology most likely complicated UTI +/- GNR bacteremia +/- DKA/dehydration. ? persistent leukocytosis ? HAP ? 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 -CT of the abdomen showed bibasilar infiltrates with enlarged fatty liver and the left hydronephrosis with hydroureter and air. -6/ GNR 10-100K 3) E. coli bacteremia: from UTI -12/20 E coli 3 of 4 bottles - pansensitive -12/22 +ESBL E coli sens to levaquin -12/28 no gus so far 4) Acute encephalopathy 5) MARLENE - not better 6) Acute respiratory failure - was on BIPAP 7) Uncontrolled diabetes with DKA 8) Hypertension 9) Diarrhea - ? reactive 10) Low platelets- from sepsis - better 11) Bilateral pneumonia ? aspiration ?HAP with bilateral mod pleural effusions seen in repeat CT s/p thoracentesis 12/30 ?transudative 12) Skin rash ? scabies S/P permethrin cream Plan: -continue meropenem renally dose D5 -continue isolation now for ESBL -monitor platelets and kidney function -upon discharge will do levaquin 500 mg PO q48h total 21 days until 01/13/18 -repeat permethrim cream next week -patient wants to eat and drink water I am rounding tomorrow Discussed with Dr Combs Thank you for your consultation, will follow up with you. Guerda Nuñez MD Infectious Diseases Specialist [facility] ([facility] M [phone] O [phone] Subjective Date of service: 01/01/18 Principal diagnosis: septic shock Interval history: Feels better, sitting up. No fever. Wants to eat and drink water Microbiology: Blood cultures: 12/20 E coli 3 of 4 bottles 12/22 ESBL E coli 12/28 neg Urine cultures: 12/20 E coli 10-100K Pleural fluid: neg Current Antimicrobials: meropenem 12/28 Previous Antimicrobials: Zosyn Vancomycin meropenem cefepime 12/23-12/28 Objective - Exam Narrative Exam: General appearance: alert in NAD Eyes: anicteric sclerae, moist conjunctivae; no lid-lag; PERRLA HENT: Atraumatic; oropharynx +NGT Neck: Trachea midline; supple, no thyromegaly or lymphadenopathy Lungs: abeba scattered rhonchi CV: RRR, no murmurs Abdomen: Soft, non-tender Extremities: No peripheral edema or extremity lymphadenopathy Skin: Multiple nodular lesions in the arms, legs and abdominal wall Psych: alert talking. Neuro: alert Lines: amin - Constitutional Vitals: Vital Signs Temp Pulse Resp BP Pulse Ox 98.5 F 95 H 20 182/93 96 01/01/18 07:39 01/01/18 07:39 01/01/18 07:39 01/01/18 07:39 01/01/18 07:39 Temperature -Last 24 Hours Temperature 98.5 F Temperature 98.5 F Temperature 98.5 F Temperature 98.5 F Temperature 98.1 F Temperature 98.1 F Temperature 98.1 F Temperature 97.9 F - Labs CBC & Chem 7: 01/01/18 04:52 01/01/18 04:52 Labs: Abnormal lab results 12/29/17 12/31/17 12/31/17 Range/Units 15:45 11:05 12:50 WBC 13.2 H (4.5-11.0) K/mm3 RBC 3.28 L (3.65-5.03) M/mm3 Hgb 8.3 L (10.1-14.3) gm/dl Hct 24.8 L (30.3-42.9) % MCV 76 L (79-97) fl MCH 25 L (28-32) pg RDW 17.0 H (13.2-15.2) % Plt Count 131 L (140-440) K/mm3 Lymph % (Auto) 7.6 L (13.4-35.0) % Lymph # 1.0 L (1.2-5.4) K/mm3 Seg Neutrophils % 84.8 H (40.0-70.0) % Seg Neutrophils # 11.2 H (1.8-7.7) K/mm3 Sodium (137-145) mmol/L Potassium (3.6-5.0) mmol/L Chloride (98-107) mmol/L BUN (7-17) mg/dL Creatinine (0.7-1.2) mg/dL Glucose (65-100) mg/dL POC Glucose 199 H (70-105) Calcium (8.4-10.2) mg/dL Total Bilirubin (0.1-1.2) mg/dL AST (5-40) units/L Alkaline Phosphatase (35-129) units/L Total Protein (6.3-8.2) g/dL Albumin (3.9-5) g/dL Fluid Total Protein < 3.0 L (15.0-45.0) 12/31/17 12/31/17 12/31/17 Range/Units 12:50 14:52 18:10 WBC (4.5-11.0) K/mm3 RBC (3.65-5.03) M/mm3 Hgb (10.1-14.3) gm/dl Hct (30.3-42.9) % MCV (79-97) fl MCH (28-32) pg RDW (13.2-15.2) % Plt Count (140-440) K/mm3 Lymph % (Auto) (13.4-35.0) % Lymph # (1.2-5.4) K/mm3 Seg Neutrophils % (40.0-70.0) % Seg Neutrophils # (1.8-7.7) K/mm3 Sodium 147 H (137-145) mmol/L Potassium 3.1 L (3.6-5.0) mmol/L Chloride 107.9 H (98-107) mmol/L BUN 74 H (7-17) mg/dL Creatinine 3.0 H (0.7-1.2) mg/dL Glucose 184 H (65-100) mg/dL POC Glucose 202 H 189 H (70-105) Calcium 7.5 L (8.4-10.2) mg/dL Total Bilirubin 1.90 H (0.1-1.2) mg/dL AST 85 H (5-40) units/L Alkaline Phosphatase 596 H (35-129) units/L Total Protein 5.6 L (6.3-8.2) g/dL Albumin 1.9 L (3.9-5) g/dL Fluid Total Protein (15.0-45.0) 12/31/17 01/01/18 01/01/18 Range/Units 22:01 01:54 04:52 WBC 13.1 H (4.5-11.0) K/mm3 RBC 3.17 L (3.65-5.03) M/mm3 Hgb 7.9 L (10.1-14.3) gm/dl Hct 23.8 L (30.3-42.9) % MCV 75 L (79-97) fl MCH 25 L (28-32) pg RDW 16.5 H (13.2-15.2) % Plt Count 121 L (140-440) K/mm3 Lymph % (Auto) (13.4-35.0) % Lymph # (1.2-5.4) K/mm3 Seg Neutrophils % (40.0-70.0) % Seg Neutrophils # (1.8-7.7) K/mm3 Sodium (137-145) mmol/L Potassium (3.6-5.0) mmol/L Chloride (98-107) mmol/L BUN (7-17) mg/dL Creatinine (0.7-1.2) mg/dL Glucose (65-100) mg/dL POC Glucose 150 H 208 H (70-105) Calcium (8.4-10.2) mg/dL Total Bilirubin (0.1-1.2) mg/dL AST (5-40) units/L Alkaline Phosphatase (35-129) units/L Total Protein (6.3-8.2) g/dL Albumin (3.9-5) g/dL Fluid Total Protein (15.0-45.0) 01/01/18 01/01/18 Range/Units 04:52 05:20 WBC (4.5-11.0) K/mm3 RBC (3.65-5.03) M/mm3 Hgb (10.1-14.3) gm/dl Hct (30.3-42.9) % MCV (79-97) fl MCH (28-32) pg RDW (13.2-15.2) % Plt Count (140-440) K/mm3 Lymph % (Auto) (13.4-35.0) % Lymph # (1.2-5.4) K/mm3 Seg Neutrophils % (40.0-70.0) % Seg Neutrophils # (1.8-7.7) K/mm3 Sodium 151 H (137-145) mmol/L Potassium (3.6-5.0) mmol/L Chloride 116.6 H (98-107) mmol/L BUN 65 H (7-17) mg/dL Creatinine 2.8 H (0.7-1.2) mg/dL Glucose 172 H (65-100) mg/dL POC Glucose 202 H (70-105) Calcium 7.5 L (8.4-10.2) mg/dL Total Bilirubin (0.1-1.2) mg/dL AST (5-40) units/L Alkaline Phosphatase (35-129) units/L Total Protein (6.3-8.2) g/dL Albumin (3.9-5) g/dL Fluid Total Protein (15.0-45.0)
--- NOTE | 2018-01-01 13:29 | Progress Note ---
Assessment and Plan Patient sitting by the side of the bed with help. Still complaining body aches..Patient is on 3 litres O2. O2 saturation 95%.Patient weak but no acute respiratory distress. - Patient Problems (1) Hypotension arterial Current Visit: Yes Status: Acute Plan to address problem: Improved. Present blood pressure 169/81. (2) Diabetic ketoacidosis Current Visit: Yes Status: Acute Plan to address problem: Improved. management as per primary care. (3) Hyperbilirubinemia Current Visit: Yes Status: Acute Plan to address problem: Management as per primary care. (4) Bilateral pleural effusion Current Visit: Yes Status: Acute Plan to address problem: Patient undergone right thoracentesis. Pleural fluid cytology WBC ,RBC Protein less isrrael 3, LDH 73 Pleural fluid is transudate. Waiting for other pleural fluid results. Subjective Date of service: 01/01/18 Principal diagnosis: septic shock Interval history: Patient sitting by the side of the bed with help. Still complaining body aches..Patient is on 3 litres O2. O2 saturation 95%.Patient weak but no acute respiratory distress. Objective Vital Signs - 12hr 01/01/18 01/01/18 01/01/18 02:23 05:09 07:39 Temperature 98.5 F 98.5 F Pulse Rate 87 95 H Respiratory 20 20 20 Rate Blood Pressure 172/88 182/93 O2 Sat by Pulse 97 96 Oximetry Constitutional: no acute distress, alert, appears uncomfortable Eyes: icteric ENT: oropharynx moist Neck: supple, no lymphadenopathy Ascultation: Bilateral: diminished breath sounds Cardiovascular: regular rate and rhythm Gastrointestinal: normoactive bowel sounds, soft, non-tender Integumentary: normal Extremities: no cyanosis, no edema Neurologic: non-focal exam, pupils equal and round Psychiatric: anxious CBC and BMP: 01/01/18 04:52 01/01/18 04:52 ABG, PT/INR, D-dimer: ABG POC ABG pH 7.599 (7.35-7.45) H 12/27/17 04:07 POC ABG pCO2 42.4 (35-45) 12/27/17 04:07 POC ABG pO2 108 (80-105) H 12/27/17 04:07 POC ABG HCO3 41.6 12/27/17 04:07 POC ABG Total CO2 43 12/27/17 04:07 POC ABG O2 Sat 99 12/27/17 04:07 PT/INR, D-dimer PT 16.4 Sec. (12.2-14.9) H 12/28/17 13:16 INR 1.25 (0.87-1.13) H 12/28/17 13:16 Abnormal lab findings: Abnormal Labs 12/20/17 12/20/17 12/20/17 23:35 23:35 23:35 WBC RBC Hgb Hct MCV 78 L MCH 26 L RDW 15.7 H Plt Count 77 L Lymph % (Auto) [place] % (Auto) Lymph # [place] # Seg Neutrophils % Seg Neuts % (Manual) 76.0 H Lymphocytes % (Manual) 6.0 L Seg Neutrophils # Seg Neutrophils # Man 8.2 H Lymphocytes # (Manual) 0.6 L PT 18.5 H INR 1.45 H POC ABG pH POC ABG pCO2 POC ABG pO2 Sodium 130 L Potassium 3.5 L Chloride 92.3 L Carbon Dioxide 17 L BUN 27 H Creatinine 2.2 H Glucose 535 H* POC Glucose Lactic Acid Calcium 7.0 L Phosphorus Magnesium Total Bilirubin AST ALT Alkaline Phosphatase 173 H Troponin T C-Reactive Protein Total Protein 5.1 L Albumin 2.6 L Triglycerides LDL Cholesterol Direct HDL Cholesterol Urine WBC (Auto) Urine Creatinine Fluid Total Protein 12/20/17 12/21/17 12/21/17 23:35 01:11 01:11 WBC RBC Hgb Hct MCV MCH RDW Plt Count Lymph % (Auto) [place] % (Auto) Lymph # [place] # Seg Neutrophils % Seg Neuts % (Manual) Lymphocytes % (Manual) Seg Neutrophils # Seg Neutrophils # Man Lymphocytes # (Manual) PT INR POC ABG pH POC ABG pCO2 POC ABG pO2 Sodium Potassium Chloride Carbon Dioxide BUN Creatinine Glucose POC Glucose Lactic Acid 8.30 H* 8.10 H* Calcium Phosphorus 1.90 L Magnesium 1.30 L Total Bilirubin AST ALT Alkaline Phosphatase Troponin T C-Reactive Protein Total Protein Albumin Triglycerides LDL Cholesterol Direct HDL Cholesterol Urine WBC (Auto) Urine Creatinine Fluid Total Protein 12/21/17 12/21/17 12/21/17 01:11 01:50 02:09 WBC RBC Hgb Hct MCV MCH RDW Plt Count Lymph % (Auto) [place] % (Auto) Lymph # [place] # Seg Neutrophils % Seg Neuts % (Manual) Lymphocytes % (Manual) Seg Neutrophils # Seg Neutrophils # Man Lymphocytes # (Manual) PT INR POC ABG pH POC ABG pCO2 POC ABG pO2 Sodium 133 L Potassium 3.3 L Chloride 97.9 L Carbon Dioxide 15 L BUN 26 H Creatinine 2.1 H Glucose 504 H* POC Glucose 391 H Lactic Acid Calcium 6.4 L Phosphorus Magnesium Total Bilirubin AST ALT Alkaline Phosphatase Troponin T C-Reactive Protein Total Protein Albumin Triglycerides LDL Cholesterol Direct HDL Cholesterol Urine WBC (Auto) 38.0 H Urine Creatinine Fluid Total Protein 12/21/17 12/21/17 12/21/17 03:10 03:26 05:15 WBC RBC Hgb Hct MCV MCH RDW Plt Count Lymph % (Auto) [place] % (Auto) Lymph # [place] # Seg Neutrophils % Seg Neuts % (Manual) Lymphocytes % (Manual) Seg Neutrophils # Seg Neutrophils # Man Lymphocytes # (Manual) PT INR POC ABG pH POC ABG pCO2 POC ABG pO2 Sodium 135 L Potassium 3.3 L Chloride Carbon Dioxide 14 L BUN 25 H Creatinine 1.9 H Glucose 443 H POC Glucose 389 H 407 H Lactic Acid Calcium 6.0 L Phosphorus Magnesium Total Bilirubin AST ALT Alkaline Phosphatase Troponin T C-Reactive Protein Total Protein Albumin Triglycerides LDL Cholesterol Direct HDL Cholesterol Urine WBC (Auto) Urine Creatinine Fluid Total Protein 12/21/17 12/21/17 12/21/17 06:00 06:00 06:09 WBC RBC Hgb Hct MCV MCH RDW Plt Count Lymph % (Auto) [place] % (Auto) Lymph # [place] # Seg Neutrophils % Seg Neuts % (Manual) Lymphocytes % (Manual) Seg Neutrophils # Seg Neutrophils # Man Lymphocytes # (Manual) PT INR POC ABG pH POC ABG pCO2 POC ABG pO2 Sodium Potassium 3.4 L Chloride Carbon Dioxide 12 L BUN 28 H Creatinine 1.9 H Glucose 283 H POC Glucose 326 H Lactic Acid 7.90 H* Calcium 6.0 L Phosphorus Magnesium Total Bilirubin AST ALT Alkaline Phosphatase Troponin T C-Reactive Protein Total Protein Albumin Triglycerides LDL Cholesterol Direct HDL Cholesterol Urine WBC (Auto) Urine Creatinine Fluid Total Protein 12/21/17 12/21/17 12/21/17 07:23 08:16 08:44 WBC RBC Hgb Hct MCV MCH RDW Plt Count Lymph % (Auto) [place] % (Auto) Lymph # [place] # Seg Neutrophils % Seg Neuts % (Manual) Lymphocytes % (Manual) Seg Neutrophils # Seg Neutrophils # Man Lymphocytes # (Manual) PT INR POC ABG pH POC ABG pCO2 POC ABG pO2 Sodium Potassium 3.3 L Chloride 107.8 H Carbon Dioxide 14 L BUN 29 H Creatinine 2.0 H Glucose 140 H POC Glucose 267 H 257 H Lactic Acid Calcium 6.2 L Phosphorus Magnesium Total Bilirubin AST ALT Alkaline Phosphatase Troponin T C-Reactive Protein Total Protein Albumin Triglycerides LDL Cholesterol Direct HDL Cholesterol Urine WBC (Auto) Urine Creatinine Fluid Total Protein 12/21/17 12/21/17 12/21/17 08:44 08:44 09:02 WBC RBC Hgb Hct MCV MCH RDW Plt Count Lymph % (Auto) [place] % (Auto) Lymph # [place] # Seg Neutrophils % Seg Neuts % (Manual) Lymphocytes % (Manual) Seg Neutrophils # Seg Neutrophils # Man Lymphocytes # (Manual) PT INR POC ABG pH POC ABG pCO2 POC ABG pO2 Sodium Potassium Chloride Carbon Dioxide BUN Creatinine Glucose POC Glucose 211 H Lactic Acid 6.40 H* Calcium Phosphorus Magnesium Total Bilirubin AST ALT Alkaline Phosphatase Troponin T C-Reactive Protein 27.10 H Total Protein Albumin Triglycerides LDL Cholesterol Direct HDL Cholesterol Urine WBC (Auto) Urine Creatinine Fluid Total Protein 12/21/17 12/21/17 12/21/17 09:35 10:27 11:57 WBC RBC Hgb Hct MCV MCH RDW Plt Count Lymph % (Auto) [place] % (Auto) Lymph # [place] # Seg Neutrophils % Seg Neuts % (Manual) Lymphocytes % (Manual) Seg Neutrophils # Seg Neutrophils # Man Lymphocytes # (Manual) PT INR POC ABG pH POC ABG pCO2 POC ABG pO2 Sodium Potassium Chloride Carbon Dioxide BUN Creatinine Glucose POC Glucose 182 H 142 H 134 H Lactic Acid Calcium Phosphorus Magnesium Total Bilirubin AST ALT Alkaline Phosphatase Troponin T C-Reactive Protein Total Protein Albumin Triglycerides LDL Cholesterol Direct HDL Cholesterol Urine WBC (Auto) Urine Creatinine Fluid Total Protein 12/21/17 12/21/17 12/21/17 13:27 15:20 17:39 WBC RBC Hgb Hct MCV MCH RDW Plt Count Lymph % (Auto) [place] % (Auto) Lymph # [place] # Seg Neutrophils % Seg Neuts % (Manual) Lymphocytes % (Manual) Seg Neutrophils # Seg Neutrophils # Man Lymphocytes # (Manual) PT INR POC ABG pH POC ABG pCO2 POC ABG pO2 Sodium Potassium Chloride Carbon Dioxide BUN Creatinine Glucose POC Glucose 161 H 189 H Lactic Acid Calcium Phosphorus Magnesium Total Bilirubin AST ALT Alkaline Phosphatase Troponin T 0.087 H C-Reactive Protein Total Protein Albumin Triglycerides 202 H LDL Cholesterol Direct 6 L HDL Cholesterol 10 L Urine WBC (Auto) Urine Creatinine Fluid Total Protein 12/21/17 12/21/17 12/21/17 17:47 19:32 20:56 WBC RBC Hgb Hct MCV MCH RDW Plt Count Lymph % (Auto) [place] % (Auto) Lymph # [place] # Seg Neutrophils % Seg Neuts % (Manual) Lymphocytes % (Manual) Seg Neutrophils # Seg Neutrophils # Man Lymphocytes # (Manual) PT INR POC ABG pH POC ABG pCO2 POC ABG pO2 Sodium Potassium Chloride 107.2 H Carbon Dioxide 14 L BUN 32 H Creatinine 2.4 H Glucose 171 H POC Glucose 160 H 136 H Lactic Acid Calcium 6.6 L Phosphorus Magnesium Total Bilirubin AST ALT Alkaline Phosphatase Troponin T C-Reactive Protein Total Protein Albumin Triglycerides LDL Cholesterol Direct HDL Cholesterol Urine WBC (Auto) Urine Creatinine Fluid Total Protein 12/21/17 12/22/17 12/22/17 21:12 00:29 03:08 WBC RBC Hgb Hct MCV MCH RDW Plt Count Lymph % (Auto) [place] % (Auto) Lymph # [place] # Seg Neutrophils % Seg Neuts % (Manual) Lymphocytes % (Manual) Seg Neutrophils # Seg Neutrophils # Man Lymphocytes # (Manual) PT INR POC ABG pH 7.152 L 7.241 L POC ABG pCO2 28.1 L POC ABG pO2 62 L 113 H Sodium Potassium Chloride Carbon Dioxide BUN Creatinine Glucose POC Glucose 109 H Lactic Acid Calcium Phosphorus Magnesium Total Bilirubin AST ALT Alkaline Phosphatase Troponin T C-Reactive Protein Total Protein Albumin Triglycerides LDL Cholesterol Direct HDL Cholesterol Urine WBC (Auto) Urine Creatinine Fluid Total Protein 12/22/17 12/22/17 12/22/17 04:29 04:30 04:30 WBC 21.9 H RBC Hgb Hct MCV 77 L MCH 25 L RDW 16.6 H Plt Count 57 L Lymph % (Auto) [place] % (Auto) Lymph # [place] # Seg Neutrophils % Seg Neuts % (Manual) Lymphocytes % (Manual) Seg Neutrophils # Seg Neutrophils # Man Lymphocytes # (Manual) PT INR POC ABG pH POC ABG pCO2 POC ABG pO2 Sodium Potassium Chloride Carbon Dioxide 14 L BUN 37 H Creatinine 2.7 H Glucose 145 H POC Glucose 139 H Lactic Acid Calcium 6.4 L Phosphorus Magnesium Total Bilirubin AST ALT Alkaline Phosphatase Troponin T C-Reactive Protein Total Protein Albumin Triglycerides LDL Cholesterol Direct HDL Cholesterol Urine WBC (Auto) Urine Creatinine Fluid Total Protein 12/22/17 12/22/17 12/22/17 04:30 05:24 05:54 WBC RBC Hgb Hct MCV MCH RDW Plt Count Lymph % (Auto) [place] % (Auto) Lymph # [place] # Seg Neutrophils % Seg Neuts % (Manual) Lymphocytes % (Manual) Seg Neutrophils # Seg Neutrophils # Man Lymphocytes # (Manual) PT INR POC ABG pH POC ABG pCO2 POC ABG pO2 Sodium Potassium Chloride Carbon Dioxide BUN Creatinine Glucose POC Glucose 144 H 145 H Lactic Acid 3.30 H* Calcium Phosphorus Magnesium Total Bilirubin AST ALT Alkaline Phosphatase Troponin T C-Reactive Protein Total Protein Albumin Triglycerides LDL Cholesterol Direct HDL Cholesterol Urine WBC (Auto) Urine Creatinine Fluid Total Protein 12/22/17 12/22/17 12/22/17 07:56 07:56 10:09 WBC RBC Hgb Hct MCV MCH RDW Plt Count Lymph % (Auto) [place] % (Auto) Lymph # [place] # Seg Neutrophils % Seg Neuts % (Manual) Lymphocytes % (Manual) Seg Neutrophils # Seg Neutrophils # Man Lymphocytes # (Manual) PT INR POC ABG pH 7.180 L POC ABG pCO2 POC ABG pO2 117 H Sodium Potassium Chloride Carbon Dioxide 14 L BUN 39 H Creatinine 2.9 H Glucose 174 H POC Glucose Lactic Acid 3.00 H* Calcium 6.7 L Phosphorus Magnesium Total Bilirubin AST ALT Alkaline Phosphatase Troponin T C-Reactive Protein Total Protein Albumin Triglycerides LDL Cholesterol Direct HDL Cholesterol Urine WBC (Auto) Urine Creatinine Fluid Total Protein 12/22/17 12/22/17 12/22/17 10:12 12:19 14:23 WBC RBC Hgb Hct MCV MCH RDW Plt Count Lymph % (Auto) [place] % (Auto) Lymph # [place] # Seg Neutrophils % Seg Neuts % (Manual) Lymphocytes % (Manual) Seg Neutrophils # Seg Neutrophils # Man Lymphocytes # (Manual) PT INR POC ABG pH 7.241 L 7.285 L POC ABG pCO2 33.9 L 29.9 L POC ABG pO2 45 L 117 H Sodium Potassium Chloride Carbon Dioxide BUN Creatinine Glucose POC Glucose 185 H Lactic Acid Calcium Phosphorus Magnesium Total Bilirubin AST ALT Alkaline Phosphatase Troponin T C-Reactive Protein Total Protein Albumin Triglycerides LDL Cholesterol Direct HDL Cholesterol Urine WBC (Auto) Urine Creatinine Fluid Total Protein 12/22/17 12/22/17 12/22/17 14:27 17:22 19:58 WBC RBC Hgb Hct MCV MCH RDW Plt Count Lymph % (Auto) [place] % (Auto) Lymph # [place] # Seg Neutrophils % Seg Neuts % (Manual) Lymphocytes % (Manual) Seg Neutrophils # Seg Neutrophils # Man Lymphocytes # (Manual) PT INR POC ABG pH 7.338 L POC ABG pCO2 27.6 L POC ABG pO2 167 H Sodium Potassium Chloride Carbon Dioxide BUN Creatinine Glucose POC Glucose 220 H 197 H Lactic Acid Calcium Phosphorus Magnesium Total Bilirubin AST ALT Alkaline Phosphatase Troponin T C-Reactive Protein Total Protein Albumin Triglycerides LDL Cholesterol Direct HDL Cholesterol Urine WBC (Auto) Urine Creatinine Fluid Total Protein 12/22/17 12/23/17 12/23/17 21:18 05:30 05:30 WBC 14.5 H RBC Hgb Hct MCV 75 L MCH 26 L RDW 16.7 H Plt Count 26 L Lymph % (Auto) [place] % (Auto) Lymph # [place] # Seg Neutrophils % Seg Neuts % (Manual) Lymphocytes % (Manual) Seg Neutrophils # Seg Neutrophils # Man Lymphocytes # (Manual) PT INR POC ABG pH POC ABG pCO2 POC ABG pO2 Sodium Potassium Chloride Carbon Dioxide 15 L BUN 49 H Creatinine 3.5 H Glucose 123 H POC Glucose 189 H Lactic Acid Calcium 6.7 L Phosphorus Magnesium Total Bilirubin 3.60 H AST 93 H ALT 58 H Alkaline Phosphatase Troponin T C-Reactive Protein Total Protein 4.5 L Albumin 2.0 L Triglycerides LDL Cholesterol Direct HDL Cholesterol Urine WBC (Auto) Urine Creatinine Fluid Total Protein 12/23/17 12/23/17 12/23/17 05:30 12:31 15:13 WBC RBC Hgb Hct MCV MCH RDW Plt Count Lymph % (Auto) [place] % (Auto) Lymph # [place] # Seg Neutrophils % Seg Neuts % (Manual) Lymphocytes % (Manual) Seg Neutrophils # Seg Neutrophils # Man Lymphocytes # (Manual) PT INR POC ABG pH POC ABG pCO2 POC ABG pO2 Sodium Potassium Chloride Carbon Dioxide BUN Creatinine Glucose POC Glucose 141 H Lactic Acid Calcium Phosphorus Magnesium Total Bilirubin AST ALT Alkaline Phosphatase Troponin T C-Reactive Protein 38.70 H Total Protein Albumin Triglycerides LDL Cholesterol Direct HDL Cholesterol Urine WBC (Auto) Urine Creatinine 65.1 H Fluid Total Protein 12/23/17 12/24/17 12/24/17 18:53 00:13 05:15 WBC 14.7 H RBC Hgb Hct MCV 76 L MCH 25 L RDW 16.6 H Plt Count 20 L Lymph % (Auto) [place] % (Auto) Lymph # [place] # Seg Neutrophils % Seg Neuts % (Manual) Lymphocytes % (Manual) Seg Neutrophils # Seg Neutrophils # Man Lymphocytes # (Manual) PT INR POC ABG pH POC ABG pCO2 POC ABG pO2 Sodium Potassium Chloride Carbon Dioxide BUN Creatinine Glucose POC Glucose 205 H 207 H Lactic Acid Calcium Phosphorus Magnesium Total Bilirubin AST ALT Alkaline Phosphatase Troponin T C-Reactive Protein Total Protein Albumin Triglycerides LDL Cholesterol Direct HDL Cholesterol Urine WBC (Auto) Urine Creatinine Fluid Total Protein 12/24/17 12/24/17 12/24/17 05:15 05:51 08:31 WBC RBC Hgb Hct MCV MCH RDW Plt Count Lymph % (Auto) [place] % (Auto) Lymph # [place] # Seg Neutrophils % Seg Neuts % (Manual) Lymphocytes % (Manual) Seg Neutrophils # Seg Neutrophils # Man Lymphocytes # (Manual) PT INR POC ABG pH POC ABG pCO2 POC ABG pO2 Sodium Potassium Chloride 107.2 H Carbon Dioxide 19 L BUN 67 H Creatinine 4.0 H Glucose 150 H POC Glucose 176 H 251 H Lactic Acid Calcium 7.2 L Phosphorus Magnesium Total Bilirubin 5.60 H AST 47 H ALT Alkaline Phosphatase Troponin T C-Reactive Protein Total Protein 4.3 L Albumin 1.9 L Triglycerides LDL Cholesterol Direct HDL Cholesterol Urine WBC (Auto) Urine Creatinine Fluid Total Protein 12/24/17 12/24/17 12/24/17 11:53 17:19 21:16 WBC RBC Hgb Hct MCV MCH RDW Plt Count Lymph % (Auto) [place] % (Auto) Lymph # [place] # Seg Neutrophils % Seg Neuts % (Manual) Lymphocytes % (Manual) Seg Neutrophils # Seg Neutrophils # Man Lymphocytes # (Manual) PT INR POC ABG pH POC ABG pCO2 POC ABG pO2 Sodium Potassium Chloride Carbon Dioxide BUN Creatinine Glucose POC Glucose 274 H 302 H 345 H Lactic Acid Calcium Phosphorus Magnesium Total Bilirubin AST ALT Alkaline Phosphatase Troponin T C-Reactive Protein Total Protein Albumin Triglycerides LDL Cholesterol Direct HDL Cholesterol Urine WBC (Auto) Urine Creatinine Fluid Total Protein 12/25/17 12/25/17 12/25/17 05:55 05:55 05:55 WBC 13.7 H RBC Hgb Hct 30.2 L MCV 75 L MCH 25 L RDW 17.2 H Plt Count 24 L Lymph % (Auto) [place] % (Auto) Lymph # [place] # Seg Neutrophils % Seg Neuts % (Manual) 85.0 H Lymphocytes % (Manual) 3.0 L Seg Neutrophils # Seg Neutrophils # Man 11.6 H Lymphocytes # (Manual) 0.4 L PT INR POC ABG pH POC ABG pCO2 POC ABG pO2 Sodium Potassium 3.5 L Chloride Carbon Dioxide BUN 81 H Creatinine 3.9 H Glucose 471 H POC Glucose Lactic Acid Calcium 7.5 L Phosphorus Magnesium Total Bilirubin 7.70 H AST ALT Alkaline Phosphatase 234 H Troponin T C-Reactive Protein 19.90 H Total Protein 4.9 L Albumin 1.6 L Triglycerides LDL Cholesterol Direct HDL Cholesterol Urine WBC (Auto) Urine Creatinine Fluid Total Protein 12/25/17 12/25/17 12/25/17 08:21 09:41 12:14 WBC RBC Hgb Hct MCV MCH RDW Plt Count Lymph % (Auto) [place] % (Auto) Lymph # [place] # Seg Neutrophils % Seg Neuts % (Manual) Lymphocytes % (Manual) Seg Neutrophils # Seg Neutrophils # Man Lymphocytes # (Manual) PT INR POC ABG pH POC ABG pCO2 POC ABG pO2 Sodium Potassium Chloride Carbon Dioxide BUN Creatinine Glucose POC Glucose 468 H 405 H Lactic Acid 2.10 H* Calcium Phosphorus Magnesium Total Bilirubin AST ALT Alkaline Phosphatase Troponin T C-Reactive Protein Total Protein Albumin Triglycerides LDL Cholesterol Direct HDL Cholesterol Urine WBC (Auto) Urine Creatinine Fluid Total Protein 12/25/17 12/25/17 12/26/17 16:13 21:46 06:54 WBC 16.6 H RBC Hgb 10.0 L Hct 29.3 L MCV 74 L MCH 25 L RDW 16.5 H Plt Count 27 L Lymph % (Auto) [place] % (Auto) Lymph # [place] # Seg Neutrophils % Seg Neuts % (Manual) Lymphocytes % (Manual) Seg Neutrophils # Seg Neutrophils # Man Lymphocytes # (Manual) PT INR POC ABG pH POC ABG pCO2 POC ABG pO2 Sodium Potassium Chloride Carbon Dioxide BUN Creatinine Glucose POC Glucose 264 H 249 H Lactic Acid Calcium Phosphorus Magnesium Total Bilirubin AST ALT Alkaline Phosphatase Troponin T C-Reactive Protein Total Protein Albumin Triglycerides LDL Cholesterol Direct HDL Cholesterol Urine WBC (Auto) Urine Creatinine Fluid Total Protein 12/26/17 12/26/17 12/26/17 06:54 07:57 11:36 WBC RBC Hgb Hct MCV MCH RDW Plt Count Lymph % (Auto) [place] % (Auto) Lymph # [place] # Seg Neutrophils % Seg Neuts % (Manual) Lymphocytes % (Manual) Seg Neutrophils # Seg Neutrophils # Man Lymphocytes # (Manual) PT INR POC ABG pH POC ABG pCO2 POC ABG pO2 Sodium Potassium 3.0 L Chloride 97.7 L Carbon Dioxide 32 H BUN 78 H Creatinine 3.8 H Glucose 353 H POC Glucose 384 H 274 H Lactic Acid Calcium 7.2 L Phosphorus Magnesium Total Bilirubin 6.00 H AST 50 H ALT Alkaline Phosphatase 265 H Troponin T C-Reactive Protein Total Protein 4.8 L Albumin 1.4 L Triglycerides LDL Cholesterol Direct HDL Cholesterol Urine WBC (Auto) Urine Creatinine Fluid Total Protein 12/26/17 12/26/17 12/27/17 18:33 21:21 02:04 WBC RBC Hgb Hct MCV MCH RDW Plt Count Lymph % (Auto) [place] % (Auto) Lymph # [place] # Seg Neutrophils % Seg Neuts % (Manual) Lymphocytes % (Manual) Seg Neutrophils # Seg Neutrophils # Man Lymphocytes # (Manual) PT INR POC ABG pH POC ABG pCO2 POC ABG pO2 Sodium Potassium Chloride Carbon Dioxide BUN Creatinine Glucose POC Glucose 198 H 182 H 200 H Lactic Acid Calcium Phosphorus Magnesium Total Bilirubin AST ALT Alkaline Phosphatase Troponin T C-Reactive Protein Total Protein Albumin Triglycerides LDL Cholesterol Direct HDL Cholesterol Urine WBC (Auto) Urine Creatinine Fluid Total Protein 12/27/17 12/27/17 12/27/17 04:07 05:24 06:40 WBC 16.8 H RBC Hgb 9.7 L Hct 29.5 L MCV 74 L MCH 24 L RDW 16.9 H Plt Count 43 L Lymph % (Auto) [place] % (Auto) Lymph # [place] # Seg Neutrophils % Seg Neuts % (Manual) Lymphocytes % (Manual) Seg Neutrophils # Seg Neutrophils # Man Lymphocytes # (Manual) PT INR POC ABG pH 7.599 H POC ABG pCO2 POC ABG pO2 108 H Sodium Potassium Chloride Carbon Dioxide BUN Creatinine Glucose POC Glucose 156 H Lactic Acid Calcium Phosphorus Magnesium Total Bilirubin AST ALT Alkaline Phosphatase Troponin T C-Reactive Protein Total Protein Albumin Triglycerides LDL Cholesterol Direct HDL Cholesterol Urine WBC (Auto) Urine Creatinine Fluid Total Protein 12/27/17 12/27/17 12/27/17 06:40 11:03 15:50 WBC RBC Hgb Hct MCV MCH RDW Plt Count Lymph % (Auto) [place] % (Auto) Lymph # [place] # Seg Neutrophils % Seg Neuts % (Manual) Lymphocytes % (Manual) Seg Neutrophils # Seg Neutrophils # Man Lymphocytes # (Manual) PT INR POC ABG pH POC ABG pCO2 POC ABG pO2 Sodium Potassium 3.5 L Chloride Carbon Dioxide 36 H BUN 81 H Creatinine 3.8 H Glucose 153 H POC Glucose 220 H 275 H Lactic Acid Calcium 7.6 L Phosphorus Magnesium Total Bilirubin AST ALT Alkaline Phosphatase Troponin T C-Reactive Protein Total Protein Albumin Triglycerides LDL Cholesterol Direct HDL Cholesterol Urine WBC (Auto) Urine Creatinine Fluid Total Protein 12/27/17 12/27/17 12/28/17 17:23 21:44 02:05 WBC RBC Hgb Hct MCV MCH RDW Plt Count Lymph % (Auto) [place] % (Auto) Lymph # [place] # Seg Neutrophils % Seg Neuts % (Manual) Lymphocytes % (Manual) Seg Neutrophils # Seg Neutrophils # Man Lymphocytes # (Manual) PT INR POC ABG pH POC ABG pCO2 POC ABG pO2 Sodium Potassium Chloride Carbon Dioxide BUN Creatinine Glucose POC Glucose 256 H 180 H 148 H Lactic Acid Calcium Phosphorus Magnesium Total Bilirubin AST ALT Alkaline Phosphatase Troponin T C-Reactive Protein Total Protein Albumin Triglycerides LDL Cholesterol Direct HDL Cholesterol Urine WBC (Auto) Urine Creatinine Fluid Total Protein 12/28/17 12/28/17 12/28/17 04:45 05:00 08:14 WBC RBC Hgb Hct MCV MCH RDW Plt Count Lymph % (Auto) [place] % (Auto) Lymph # [place] # Seg Neutrophils % Seg Neuts % (Manual) Lymphocytes % (Manual) Seg Neutrophils # Seg Neutrophils # Man Lymphocytes # (Manual) PT INR POC ABG pH POC ABG pCO2 POC ABG pO2 Sodium 147 H Potassium 3.3 L Chloride Carbon Dioxide 32 H BUN 82 H Creatinine 3.9 H Glucose 212 H POC Glucose 205 H 180 H Lactic Acid Calcium 7.6 L Phosphorus Magnesium Total Bilirubin AST ALT Alkaline Phosphatase Troponin T C-Reactive Protein Total Protein Albumin Triglycerides LDL Cholesterol Direct HDL Cholesterol Urine WBC (Auto) Urine Creatinine Fluid Total Protein 12/28/17 12/28/17 12/28/17 12:07 13:16 16:28 WBC RBC Hgb Hct MCV MCH RDW Plt Count Lymph % (Auto) [place] % (Auto) Lymph # [place] # Seg Neutrophils % Seg Neuts % (Manual) Lymphocytes % (Manual) Seg Neutrophils # Seg Neutrophils # Man Lymphocytes # (Manual) PT 16.4 H INR 1.25 H POC ABG pH POC ABG pCO2 POC ABG pO2 Sodium Potassium Chloride Carbon Dioxide BUN Creatinine Glucose POC Glucose 213 H 126 H Lactic Acid Calcium Phosphorus Magnesium Total Bilirubin AST ALT Alkaline Phosphatase Troponin T C-Reactive Protein Total Protein Albumin Triglycerides LDL Cholesterol Direct HDL Cholesterol Urine WBC (Auto) Urine Creatinine Fluid Total Protein 12/28/17 12/29/17 12/29/17 21:41 06:36 10:02 WBC 17.1 H RBC Hgb 9.3 L Hct 28.5 L MCV 76 L MCH 25 L RDW 17.2 H Plt Count 107 L D Lymph % (Auto) 6.8 L [place] % (Auto) 7.4 H Lymph # [place] # 1.3 H Seg Neutrophils % 85.0 H Seg Neuts % (Manual) Lymphocytes % (Manual) Seg Neutrophils # 14.5 H Seg Neutrophils # Man Lymphocytes # (Manual) PT INR POC ABG pH POC ABG pCO2 POC ABG pO2 Sodium Potassium Chloride Carbon Dioxide BUN Creatinine Glucose POC Glucose 201 H 243 H Lactic Acid Calcium Phosphorus Magnesium Total Bilirubin AST ALT Alkaline Phosphatase Troponin T C-Reactive Protein Total Protein Albumin Triglycerides LDL Cholesterol Direct HDL Cholesterol Urine WBC (Auto) Urine Creatinine Fluid Total Protein 12/29/17 12/29/17 12/29/17 10:02 11:49 15:45 WBC RBC Hgb Hct MCV MCH RDW Plt Count Lymph % (Auto) [place] % (Auto) Lymph # [place] # Seg Neutrophils % Seg Neuts % (Manual) Lymphocytes % (Manual) Seg Neutrophils # Seg Neutrophils # Man Lymphocytes # (Manual) PT INR POC ABG pH POC ABG pCO2 POC ABG pO2 Sodium 151 H Potassium 3.3 L Chloride 108.8 H Carbon Dioxide BUN 81 H Creatinine 3.8 H Glucose 166 H POC Glucose 207 H Lactic Acid Calcium 7.7 L Phosphorus Magnesium Total Bilirubin 2.40 H AST 48 H ALT Alkaline Phosphatase 239 H Troponin T C-Reactive Protein Total Protein 5.5 L Albumin 1.7 L Triglycerides LDL Cholesterol Direct HDL Cholesterol Urine WBC (Auto) Urine Creatinine Fluid Total Protein < 3.0 L 12/29/17 12/29/17 12/30/17 17:33 22:21 01:08 WBC RBC Hgb Hct MCV MCH RDW Plt Count Lymph % (Auto) [place] % (Auto) Lymph # [place] # Seg Neutrophils % Seg Neuts % (Manual) Lymphocytes % (Manual) Seg Neutrophils # Seg Neutrophils # Man Lymphocytes # (Manual) PT INR POC ABG pH POC ABG pCO2 POC ABG pO2 Sodium Potassium Chloride Carbon Dioxide BUN Creatinine Glucose POC Glucose 110 H 242 H 161 H Lactic Acid Calcium Phosphorus Magnesium Total Bilirubin AST ALT Alkaline Phosphatase Troponin T C-Reactive Protein Total Protein Albumin Triglycerides LDL Cholesterol Direct HDL Cholesterol Urine WBC (Auto) Urine Creatinine Fluid Total Protein 12/30/17 12/30/17 12/30/17 05:30 05:30 05:39 WBC 16.6 H RBC 3.63 L Hgb 9.1 L Hct 26.7 L MCV 74 L MCH 25 L RDW 16.9 H Plt Count 119 L Lymph % (Auto) 7.5 L [place] % (Auto) 7.5 H Lymph # [place] # 1.2 H Seg Neutrophils % 83.5 H Seg Neuts % (Manual) Lymphocytes % (Manual) Seg Neutrophils # 13.9 H Seg Neutrophils # Man Lymphocytes # (Manual) PT INR POC ABG pH POC ABG pCO2 POC ABG pO2 Sodium 146 H Potassium 2.9 L* Chloride Carbon Dioxide BUN 80 H Creatinine 3.5 H Glucose 160 H POC Glucose 113 H Lactic Acid Calcium 7.5 L Phosphorus Magnesium Total Bilirubin 2.30 H AST 87 H ALT Alkaline Phosphatase 403 H Troponin T C-Reactive Protein Total Protein 5.1 L Albumin 1.5 L Triglycerides LDL Cholesterol Direct HDL Cholesterol Urine WBC (Auto) Urine Creatinine Fluid Total Protein 12/30/17 12/30/17 12/30/17 06:09 11:02 16:40 WBC RBC Hgb Hct MCV MCH RDW Plt Count Lymph % (Auto) [place] % (Auto) Lymph # [place] # Seg Neutrophils % Seg Neuts % (Manual) Lymphocytes % (Manual) Seg Neutrophils # Seg Neutrophils # Man Lymphocytes # (Manual) PT INR POC ABG pH POC ABG pCO2 POC ABG pO2 Sodium Potassium Chloride Carbon Dioxide BUN Creatinine Glucose POC Glucose 189 H 265 H 224 H Lactic Acid Calcium Phosphorus Magnesium Total Bilirubin AST ALT Alkaline Phosphatase Troponin T C-Reactive Protein Total Protein Albumin Triglycerides LDL Cholesterol Direct HDL Cholesterol Urine WBC (Auto) Urine Creatinine Fluid Total Protein 12/30/17 12/31/17 12/31/17 21:51 02:11 06:23 WBC RBC Hgb Hct MCV MCH RDW Plt Count Lymph % (Auto) [place] % (Auto) Lymph # [place] # Seg Neutrophils % Seg Neuts % (Manual) Lymphocytes % (Manual) Seg Neutrophils # Seg Neutrophils # Man Lymphocytes # (Manual) PT INR POC ABG pH POC ABG pCO2 POC ABG pO2 Sodium Potassium Chloride Carbon Dioxide BUN Creatinine Glucose POC Glucose 262 H 171 H 147 H Lactic Acid Calcium Phosphorus Magnesium Total Bilirubin AST ALT Alkaline Phosphatase Troponin T C-Reactive Protein Total Protein Albumin Triglycerides LDL Cholesterol Direct HDL Cholesterol Urine WBC (Auto) Urine Creatinine Fluid Total Protein 12/31/17 12/31/17 12/31/17 11:05 12:50 12:50 WBC 13.2 H RBC 3.28 L Hgb 8.3 L Hct 24.8 L MCV 76 L MCH 25 L RDW 17.0 H Plt Count 131 L Lymph % (Auto) 7.6 L [place] % (Auto) Lymph # 1.0 L [place] # Seg Neutrophils % 84.8 H Seg Neuts % (Manual) Lymphocytes % (Manual) Seg Neutrophils # 11.2 H Seg Neutrophils # Man Lymphocytes # (Manual) PT INR POC ABG pH POC ABG pCO2 POC ABG pO2 Sodium 147 H Potassium 3.1 L Chloride 107.9 H Carbon Dioxide BUN 74 H Creatinine 3.0 H Glucose 184 H POC Glucose 199 H Lactic Acid Calcium 7.5 L Phosphorus Magnesium Total Bilirubin 1.90 H AST 85 H ALT Alkaline Phosphatase 596 H Troponin T C-Reactive Protein Total Protein 5.6 L Albumin 1.9 L Triglycerides LDL Cholesterol Direct HDL Cholesterol Urine WBC (Auto) Urine Creatinine Fluid Total Protein 12/31/17 12/31/17 12/31/17 14:52 18:10 22:01 WBC RBC Hgb Hct MCV MCH RDW Plt Count Lymph % (Auto) [place] % (Auto) Lymph # [place] # Seg Neutrophils % Seg Neuts % (Manual) Lymphocytes % (Manual) Seg Neutrophils # Seg Neutrophils # Man Lymphocytes # (Manual) PT INR POC ABG pH POC ABG pCO2 POC ABG pO2 Sodium Potassium Chloride Carbon Dioxide BUN Creatinine Glucose POC Glucose 202 H 189 H 150 H Lactic Acid Calcium Phosphorus Magnesium Total Bilirubin AST ALT Alkaline Phosphatase Troponin T C-Reactive Protein Total Protein Albumin Triglycerides LDL Cholesterol Direct HDL Cholesterol Urine WBC (Auto) Urine Creatinine Fluid Total Protein 01/01/18 01/01/18 01/01/18 01:54 04:52 04:52 WBC 13.1 H RBC 3.17 L Hgb 7.9 L Hct 23.8 L MCV 75 L MCH 25 L RDW 16.5 H Plt Count 121 L Lymph % (Auto) [place] % (Auto) Lymph # [place] # Seg Neutrophils % Seg Neuts % (Manual) Lymphocytes % (Manual) Seg Neutrophils # Seg Neutrophils # Man Lymphocytes # (Manual) PT INR POC ABG pH POC ABG pCO2 POC ABG pO2 Sodium 151 H Potassium Chloride 116.6 H Carbon Dioxide BUN 65 H Creatinine 2.8 H Glucose 172 H POC Glucose 208 H Lactic Acid Calcium 7.5 L Phosphorus Magnesium Total Bilirubin AST ALT Alkaline Phosphatase Troponin T C-Reactive Protein Total Protein Albumin Triglycerides LDL Cholesterol Direct HDL Cholesterol Urine WBC (Auto) Urine Creatinine Fluid Total Protein 01/01/18 01/01/18 05:20 10:16 WBC RBC Hgb Hct MCV MCH RDW Plt Count Lymph % (Auto) [place] % (Auto) Lymph # [place] # Seg Neutrophils % Seg Neuts % (Manual) Lymphocytes % (Manual) Seg Neutrophils # Seg Neutrophils # Man Lymphocytes # (Manual) PT INR POC ABG pH POC ABG pCO2 POC ABG pO2 Sodium Potassium Chloride Carbon Dioxide BUN Creatinine Glucose POC Glucose 202 H 231 H Lactic Acid Calcium Phosphorus Magnesium Total Bilirubin AST ALT Alkaline Phosphatase Troponin T C-Reactive Protein Total Protein Albumin Triglycerides LDL Cholesterol Direct HDL Cholesterol Urine WBC (Auto) Urine Creatinine Fluid Total Protein
[2018-01-01] MEDS: Centrum Liq PO SCH (15:44)
[2018-01-01] MEDS: FOLVITE PO SCH (15:45)
[2018-01-01] MEDS: PEPCID PO SCH ×2 (15:47→22:10)
[2018-01-01] MEDS: VITAMIN B-1 PO SCH (15:49)
[2018-01-01] MEDS: NORVASC PO SCH (18:17)
--- NOTE | 2018-01-01 19:12 | Progress Note ---
Assessment and Plan Assessment and plan: --Sepsis secondary to UTI; pyelonephritis; bacteremia Continue current IV antibiotics, follow cultures ID following --Septic shock(severe sepsis; due to ESBL Escherichia coli UTI ,pyelonephritis ,bacteremia, antibiotics per ID --DKA; resolved --Type 2 diabetes mellitus; Accu-Chek sliding scale coverage and ADA diet --Acute Kidney injury; closely monitor renal function and avoid nephrotoxins Nephrology following --Acute on chronic hypoxic respiratory failure; continue current management Oxygen titrated to O2 sats more than 90%, pulmonary following --DVT prophylaxis; heparin We'll closely monitor the patient and adjust management as needed DC planning. Case management History Interval history: Patient seen and examined medical records reviewed No new events reported Patient is slightly better no new complaints Vital signs noted Hospitalist Physical - Constitutional Vitals: Temp Pulse Resp BP Pulse Ox 98.4 F 93 H 18 169/81 95 01/01/18 11:20 01/01/18 11:20 01/01/18 11:20 01/01/18 11:20 01/01/18 15:09 General appearance: Present: no acute distress, well-nourished - EENT Eyes: Present: PERRL, EOM intact - Neck Neck: Present: supple, normal ROM - Respiratory Respiratory effort: normal Respiratory: bilateral: diminished, negative: rales, rhonchi, wheezing - Cardiovascular Rhythm: regular Heart Sounds: Present: S1 & S2 - Extremities Extremities: no ischemia, No edema - Abdominal General gastrointestinal: soft, non-tender, non-distended, normal bowel sounds - Integumentary Integumentary: Present: clear, warm - Psychiatric Psychiatric: appropriate mood/affect, cooperative - Neurologic Neurologic: CNII-XII intact, moves all extremities Results - Labs CBC & Chem 7: 01/01/18 04:52 01/01/18 04:52 Labs: Laboratory Last Values WBC 13.1 K/mm3 (4.5-11.0) H 01/01/18 04:52 RBC 3.17 M/mm3 (3.65-5.03) L 01/01/18 04:52 Hgb 7.9 gm/dl (10.1-14.3) L 01/01/18 04:52 Hct 23.8 % (30.3-42.9) L 01/01/18 04:52 MCV 75 fl (79-97) L 01/01/18 04:52 MCH 25 pg (28-32) L 01/01/18 04:52 MCHC 33 % (30-34) 01/01/18 04:52 RDW 16.5 % (13.2-15.2) H 01/01/18 04:52 Plt Count 121 K/mm3 (140-440) L 01/01/18 04:52 Lymph % (Auto) 7.6 % (13.4-35.0) L 12/31/17 12:50 [place] % (Auto) 6.0 % (0.0-7.3) 12/31/17 12:50 Eos % (Auto) 1.0 % (0.0-4.3) 12/31/17 12:50 Baso % (Auto) 0.6 % (0.0-1.8) 12/31/17 12:50 Lymph # 1.0 K/mm3 (1.2-5.4) L 12/31/17 12:50 [place] # 0.8 K/mm3 (0.0-0.8) 12/31/17 12:50 Eos # 0.1 K/mm3 (0.0-0.4) 12/31/17 12:50 Baso # 0.1 K/mm3 (0.0-0.1) 12/31/17 12:50 Add Manual Diff Complete 12/25/17 05:55 Total Counted 100 12/25/17 05:55 Seg Neutrophils % 84.8 % (40.0-70.0) H 12/31/17 12:50 Seg Neuts % (Manual) 85.0 % (40.0-70.0) H 12/25/17 05:55 Band Neutrophils % 6.0 % 12/25/17 05:55 Lymphocytes % (Manual) 3.0 % (13.4-35.0) L 12/25/17 05:55 Reactive Lymphs % (Man) 1.0 % 12/25/17 05:55 Monocytes % (Manual) 5.0 % (0.0-7.3) 12/25/17 05:55 Eosinophils % (Manual) 0 % (0.0-4.3) 12/25/17 05:55 Basophils % (Manual) 0 % (0.0-1.8) 12/25/17 05:55 Metamyelocytes % 0 % 12/25/17 05:55 Myelocytes % 0 % 12/25/17 05:55 Promyelocytes % 0 % 12/25/17 05:55 Blast Cells % 0 % 12/25/17 05:55 Nucleated RBC % Not Reportable 12/25/17 05:55 Seg Neutrophils # 11.2 K/mm3 (1.8-7.7) H 12/31/17 12:50 Seg Neutrophils # Man 11.6 K/mm3 (1.8-7.7) H 12/25/17 05:55 Band Neutrophils # 0.8 K/mm3 12/25/17 05:55 Lymphocytes # (Manual) 0.4 K/mm3 (1.2-5.4) L 12/25/17 05:55 Abs React Lymphs (Man) 0.1 K/mm3 12/25/17 05:55 Monocytes # (Manual) 0.7 K/mm3 (0.0-0.8) 12/25/17 05:55 Eosinophils # (Manual) 0.0 K/mm3 (0.0-0.4) 12/25/17 05:55 Basophils # (Manual) 0.0 K/mm3 (0.0-0.1) 12/25/17 05:55 Metamyelocytes # 0.0 K/mm3 12/25/17 05:55 Myelocytes # 0.0 K/mm3 12/25/17 05:55 Promyelocytes # 0.0 K/mm3 12/25/17 05:55 Blast Cells # 0.0 K/mm3 12/25/17 05:55 WBC Morphology Not Reportable 12/25/17 05:55 Hypersegmented Neuts Not Reportable 12/25/17 05:55 Hyposegmented Neuts Not Reportable 12/25/17 05:55 Hypogranular Neuts Not Reportable 12/25/17 05:55 Smudge Cells Not Reportable 12/25/17 05:55 Toxic Granulation Not Reportable 12/25/17 05:55 Toxic Vacuolation Not Reportable 12/25/17 05:55 Dohle Bodies Not Reportable 12/25/17 05:55 Pelger-Huet Anomaly Not Reportable 12/25/17 05:55 Pooja Rods Not Reportable 12/25/17 05:55 Platelet Estimate Consistent w auto 12/25/17 05:55 Clumped Platelets Not Reportable 12/25/17 05:55 Plt Clumps, EDTA Not Reportable 12/25/17 05:55 Large Platelets Not Reportable 12/25/17 05:55 Giant Platelets Not Reportable 12/25/17 05:55 Platelet Satelliting Not Reportable 12/25/17 05:55 Plt Morphology Comment Not Reportable 12/25/17 05:55 RBC Morphology Not Reportable 12/25/17 05:55 Dimorphic RBCs Not Reportable 12/25/17 05:55 Polychromasia Not Reportable 12/25/17 05:55 Hypochromasia 1+ 12/25/17 05:55 Poikilocytosis Not Reportable 12/25/17 05:55 Anisocytosis 1+ 12/25/17 05:55 Microcytosis 1+ 12/25/17 05:55 Macrocytosis Not Reportable 12/25/17 05:55 Spherocytes Not Reportable 12/25/17 05:55 Pappenheimer Bodies Not Reportable 12/25/17 05:55 Sickle Cells Not Reportable 12/25/17 05:55 Target Cells Not Reportable 12/25/17 05:55 Tear Drop Cells Not Reportable 12/25/17 05:55 Ovalocytes Not Reportable 12/25/17 05:55 Helmet Cells Not Reportable 12/25/17 05:55 Wood-[place] Bodies Not Reportable 12/25/17 05:55 Rison Rings Not Reportable 12/25/17 05:55 [place] Cells Not Reportable 12/25/17 05:55 Bite Cells Not Reportable 12/25/17 05:55 Crenated Cell Not Reportable 12/25/17 05:55 Elliptocytes Not Reportable 12/25/17 05:55 Acanthocytes (Spur) Not Reportable 12/25/17 05:55 Rouleaux Not Reportable 12/25/17 05:55 Hemoglobin C Crystals Not Reportable 12/25/17 05:55 Schistocytes Not Reportable 12/25/17 05:55 Malaria parasites Not Reportable 12/25/17 05:55 López Bodies Not Reportable 12/25/17 05:55 Hem Pathologist Commnt No 12/25/17 05:55 PT 16.4 Sec. (12.2-14.9) H 12/28/17 13:16 INR 1.25 (0.87-1.13) H 12/28/17 13:16 Heparin Anti-Xa, Unfract Negative (Negative) 12/23/17 10:15 POC ABG pH 7.599 (7.35-7.45) H 12/27/17 04:07 POC ABG pCO2 42.4 (35-45) 12/27/17 04:07 POC ABG pO2 108 (80-105) H 12/27/17 04:07 POC ABG HCO3 41.6 12/27/17 04:07 POC ABG Total CO2 43 12/27/17 04:07 POC ABG O2 Sat 99 12/27/17 04:07 POC ABG Base Excess 20 12/27/17 04:07 VBG pH 7.320 (7.320-7.420) 12/20/17 23:35 FiO2 35 % 12/27/17 04:07 Sodium 151 mmol/L (137-145) H 01/01/18 04:52 Potassium 4.7 mmol/L (3.6-5.0) D 01/01/18 04:52 Chloride 116.6 mmol/L (98-107) H 01/01/18 04:52 Carbon Dioxide 24 mmol/L (22-30) 01/01/18 04:52 Anion Gap 15 mmol/L 01/01/18 04:52 BUN 65 mg/dL (7-17) H 01/01/18 04:52 Creatinine 2.8 mg/dL (0.7-1.2) H 01/01/18 04:52 Estimated GFR 18 ml/min 01/01/18 04:52 BUN/Creatinine Ratio 23 % 01/01/18 04:52 Glucose 172 mg/dL (65-100) H 01/01/18 04:52 POC Glucose 258 (70-105) H 01/01/18 18:15 Lactic Acid 2.10 mmol/L (0.7-2.0) H* 12/25/17 09:41 Calcium 7.5 mg/dL (8.4-10.2) L 01/01/18 04:52 Phosphorus 3.50 mg/dL (2.5-4.5) 12/29/17 10:02 Magnesium 2.30 mg/dL (1.7-2.3) 12/29/17 10:02 Total Bilirubin 1.90 mg/dL (0.1-1.2) H 12/31/17 12:50 AST 85 units/L (5-40) H 12/31/17 12:50 ALT 50 units/L (7-56) 12/31/17 12:50 Alkaline Phosphatase 596 units/L (35-129) H 12/31/17 12:50 Ammonia 28.0 umol/L (25-60) 12/25/17 09:41 Total Creatine Kinase 117 units/L (30-135) 12/21/17 13:27 CK-MB (CK-2) 3.9 ng/mL (0.0-4.0) 12/21/17 13:27 CK-MB (CK-2) Rel Index 3.3 (0-4) 12/21/17 13:27 Troponin T 0.087 ng/mL (0.00-0.029) H 12/21/17 13:27 C-Reactive Protein 19.90 mg/dL (0.00-1.30) H 12/25/17 05:55 Total Protein 5.6 g/dL (6.3-8.2) L 12/31/17 12:50 Albumin 1.9 g/dL (3.9-5) L 12/31/17 12:50 Albumin/Globulin Ratio 0.5 % 12/31/17 12:50 Triglycerides 202 mg/dL (2-149) H 12/21/17 13:27 Cholesterol 57 mg/dL (50-199) 12/21/17 13:27 LDL Cholesterol Direct 6 mg/dL (50-130) L 12/21/17 13:27 HDL Cholesterol 10 mg/dL (40-59) L 12/21/17 13:27 Cholesterol/HDL Ratio 5.70 % 12/21/17 13:27 Serotonin Release Assay See scanned result 12/23/17 10:15 Urine Color Yellow (Yellow) 12/21/17 01:50 Urine Turbidity Clear (Clear) 12/21/17 01:50 Urine pH 5.0 (5.0-7.0) 12/21/17 01:50 Ur Specific [place] 1.015 (1.003-1.030) 12/21/17 01:50 Urine Protein <15 mg/dl mg/dL (Negative) 12/21/17 01:50 Urine Glucose (UA) >=500 mg/dL (Negative) 12/21/17 01:50 Urine Ketones Neg mg/dL (Negative) 12/21/17 01:50 Urine Blood Neg (Negative) 12/21/17 01:50 Urine Nitrite Neg (Negative) 12/21/17 01:50 Urine Bilirubin Neg (Negative) 12/21/17 01:50 Urine Urobilinogen < 2.0 mg/dL (<2.0) 12/21/17 01:50 Ur Leukocyte Esterase Sm (Negative) 12/21/17 01:50 Urine WBC (Auto) 38.0 /HPF (0.0-6.0) H 12/21/17 01:50 Urine RBC (Auto) 3.0 /HPF (0.0-6.0) 12/21/17 01:50 U Epithel Cells (Auto) 3.0 /HPF (0-13.0) 12/21/17 01:50 Urine Bacteria (Auto) 2+ /HPF (Negative) 12/21/17 01:50 Urine Creatinine 65.1 mg/dL (0.1-20.0) H 12/23/17 15:13 Urine Sodium 26 mmol/L 12/23/17 15:13 Fluid Type Pleural 12/29/17 15:45 Fluid Color Dark yellow 12/29/17 15:45 Fluid Appearance Clear 12/29/17 15:45 Fluid WBC 93 /mm3 12/29/17 15:45 Fluid RBC 125 /mm3 12/29/17 15:45 Fluid Seg Neutrophils 42.0 % 12/29/17 15:45 Fluid Lymphocytes 5.0 % 12/29/17 15:45 Fluid Reactive Lymphs 0 % 12/29/17 15:45 Fluid Monocytes 53.0 % 12/29/17 15:45 Fluid Eosinophils 0 % 12/29/17 15:45 Fluid Basophils 0 % 12/29/17 15:45 Fluid Total Protein < 3.0 (15.0-45.0) L 12/29/17 15:45 Fluid LDH 73 12/29/17 15:45 Fluid Cholesterol < 15 12/29/17 15:45 Fluid Comment Diff performed 12/29/17 15:45 Random Vancomycin 15.4 ug/mL (0-40.0) 12/22/17 Unknown Heparin-induced Plt Ab Negative (Negative) 12/23/17 10:15 UF Heparin High Dose 0 % Release 12/23/17 10:15 BRITNEY UFH Low Dose 0.1 0 % Release 12/23/17 10:15 BR[place]NEY UFH Low Dose 0.5 0 % Release 12/23/17 10:15 C. difficile Toxin A&B Negative (Negative) 12/21/17 04:52 Hepatitis A IgM Ab Non-reactive (NonReactive) 12/21/17 08:44 Hep Bs Antigen Non-reactive (Negative) 12/21/17 08:44 Hep B Core IgM Ab Non-reactive (NonReactive) 12/21/17 08:44 Hepatitis C Antibody Non-reactive (NonReactive) 12/21/17 08:44
[2018-01-01] MEDS: LANTUS SUB-Q SCH (22:11)
[2018-01-02] MEDS: POTASSIUM CHLORIDE FEEDTUBE SCH ×2 (01:01→06:13)
[2018-01-02] MEDS: VANCOMYCIN PO PO SCH ×4 (01:01→18:49)
[2018-01-02] MEDS: SODIUM CHLORIDE FLUSH SYRINGE 10 ML IV SCH ×3 (01:01→22:12)
[2018-01-02] MEDS: NACL 0.45% 1000 ML 1,000 ML IV SCH ×2 (05:54→22:11)
[2018-01-02] MEDS: ZOFRAN IV PRN (05:54)
[2018-01-02] MEDS: HumuLIN R SUB-Q SCH ×5 (06:13→21:54)
[2018-01-02 07:10] LABS: Calcium 7.4 mg/dL (8.4-10.2)
--- NOTE | 2018-01-02 07:41 | Progress Note ---
Assessment and Plan 1. Acute kidney injury: Vasomotor / hemodynamic MARLENE in the setting of septic shock. Renal function continue to improve. 2. Septic shock: In the setting of Acute pyelonephritis and E.Coli bacteremia. Improved. 3. Left hydronephrosis: 4. HTN: Add Amlodipine. 5. Electrolytes: Hyperkalemia, kayexalate. Hypernatremia, improved. 6. DKA: Improved. 7. Acute Encephalopathy: Improving. 8. Thrombocytopenia: Improving. Subjective Date of service: 01/02/18 Principal diagnosis: septic shock Interval history: Patient was seen and examined at the bedside. Objective - Vital Signs Vital signs: Vital Signs - 12hr 01/01/18 01/02/18 01/02/18 22:00 00:48 05:39 Temperature 98.1 F 98.3 F Pulse Rate 105 H 91 H 88 Respiratory 18 20 Rate Blood Pressure 175/87 164/85 O2 Sat by Pulse 94 89 89 Oximetry - General Appearance General appearance: well-developed, appears stated age, other (no distress) EENT: ATNC, PERRL, hearing intact Neck: supple Respiratory: Present: Clear to Ascultation Cardiology: regular, S1S2, no murmurs Gastrointestinal: normoactive bowel sounds, no tenderness Integumentary: no rash, warm and dry Neurologic: no focal deficit, no asterixis Musculoskeletal: other (trace pedal edema noted) Psychiatric: cooperative - Lab 01/01/18 04:52 01/02/18 Unknown Most recent lab results Calcium 7.4 mg/dL (8.4-10.2) L 01/02/18 Unknown Phosphorus 3.50 mg/dL (2.5-4.5) 12/29/17 10:02 Magnesium 2.30 mg/dL (1.7-2.3) 12/29/17 10:02 Urine Creatinine 65.1 mg/dL (0.1-20.0) H 12/23/17 15:13 Urine Sodium 26 mmol/L 12/23/17 15:13
[2018-01-02] MEDS ORDERED: KIONEX PO NR (08:36)
[2018-01-02] MEDS ORDERED: CALCIUM CHLORIDE 1,000 MG in NACL 0.9% 100 ML IV ONE (09:00)
[2018-01-02] MEDS ORDERED: KIONEX PR ONE ×2 (09:00)
[2018-01-02] MEDS: VITAMIN B-1 PO SCH (09:46)
[2018-01-02] MEDS: FOLVITE PO SCH (09:46)
[2018-01-02] MEDS: NORVASC PO SCH (09:46)
[2018-01-02] MEDS: PEPCID PO SCH ×2 (09:46→22:11)
[2018-01-02] MEDS: MERREM 1,000 MG in NACL 0.9% 100 ML IV SCH (10:40)
--- NOTE | 2018-01-02 12:26 | Progress Note ---
Assessment and Plan Assessment and plan: --Hyperkalemia; calcium chloride, Kayexalate Closely monitor electrolytes --Sepsis secondary to UTI; pyelonephritis; bacteremia Continue current IV antibiotics, follow cultures ID following --Septic shock(severe sepsis; due to ESBL Escherichia coli UTI ,pyelonephritis ,bacteremia, antibiotics per ID --DKA; resolved --Type 2 diabetes mellitus; Accu-Chek sliding scale coverage and ADA diet An insulin --Acute Kidney injury; closely monitor renal function and avoid nephrotoxins Nephrology following --Acute on chronic hypoxic respiratory failure; continue current management Oxygen titrated to O2 sats more than 90%, pulmonary following --DVT prophylaxis; heparin We'll closely monitor the patient and adjust management as needed DC planning. Case management History Interval history: Patient seen and examined medical records reviewed No new events reported by the nursing staff Patient had hyperkalemia with potassium of 6.1 Advised calcium chloride and Kayexalate Patient is alert awake not in acute distress Vital signs noted Hospitalist Physical - Constitutional Vitals: Temp Pulse Resp BP Pulse Ox 98.3 F 78 22 187/97 95 01/02/18 08:36 01/02/18 09:46 01/02/18 08:36 01/02/18 09:46 01/02/18 10:00 General appearance: Present: no acute distress, well-nourished - EENT Eyes: Present: PERRL, EOM intact - Neck Neck: Present: supple, normal ROM - Respiratory Respiratory effort: normal Respiratory: bilateral: diminished, negative: rales, rhonchi, wheezing - Cardiovascular Rhythm: regular - Extremities Extremities: no ischemia, No edema - Abdominal General gastrointestinal: soft, non-tender, non-distended, normal bowel sounds - Integumentary Integumentary: Present: clear, warm - Psychiatric Psychiatric: appropriate mood/affect, cooperative - Neurologic Neurologic: moves all extremities Results - Labs CBC & Chem 7: 01/01/18 04:52 01/02/18 Unknown Labs: Laboratory Last Values WBC 13.1 K/mm3 (4.5-11.0) H 01/01/18 04:52 RBC 3.17 M/mm3 (3.65-5.03) L 01/01/18 04:52 Hgb 7.9 gm/dl (10.1-14.3) L 01/01/18 04:52 Hct 23.8 % (30.3-42.9) L 01/01/18 04:52 MCV 75 fl (79-97) L 01/01/18 04:52 MCH 25 pg (28-32) L 01/01/18 04:52 MCHC 33 % (30-34) 01/01/18 04:52 RDW 16.5 % (13.2-15.2) H 01/01/18 04:52 Plt Count 121 K/mm3 (140-440) L 01/01/18 04:52 Lymph % (Auto) 7.6 % (13.4-35.0) L 12/31/17 12:50 [place] % (Auto) 6.0 % (0.0-7.3) 12/31/17 12:50 Eos % (Auto) 1.0 % (0.0-4.3) 12/31/17 12:50 Baso % (Auto) 0.6 % (0.0-1.8) 12/31/17 12:50 Lymph # 1.0 K/mm3 (1.2-5.4) L 12/31/17 12:50 [place] # 0.8 K/mm3 (0.0-0.8) 12/31/17 12:50 Eos # 0.1 K/mm3 (0.0-0.4) 12/31/17 12:50 Baso # 0.1 K/mm3 (0.0-0.1) 12/31/17 12:50 Add Manual Diff Complete 12/25/17 05:55 Total Counted 100 12/25/17 05:55 Seg Neutrophils % 84.8 % (40.0-70.0) H 12/31/17 12:50 Seg Neuts % (Manual) 85.0 % (40.0-70.0) H 12/25/17 05:55 Band Neutrophils % 6.0 % 12/25/17 05:55 Lymphocytes % (Manual) 3.0 % (13.4-35.0) L 12/25/17 05:55 Reactive Lymphs % (Man) 1.0 % 12/25/17 05:55 Monocytes % (Manual) 5.0 % (0.0-7.3) 12/25/17 05:55 Eosinophils % (Manual) 0 % (0.0-4.3) 12/25/17 05:55 Basophils % (Manual) 0 % (0.0-1.8) 12/25/17 05:55 Metamyelocytes % 0 % 12/25/17 05:55 Myelocytes % 0 % 12/25/17 05:55 Promyelocytes % 0 % 12/25/17 05:55 Blast Cells % 0 % 12/25/17 05:55 Nucleated RBC % Not Reportable 12/25/17 05:55 Seg Neutrophils # 11.2 K/mm3 (1.8-7.7) H 12/31/17 12:50 Seg Neutrophils # Man 11.6 K/mm3 (1.8-7.7) H 12/25/17 05:55 Band Neutrophils # 0.8 K/mm3 12/25/17 05:55 Lymphocytes # (Manual) 0.4 K/mm3 (1.2-5.4) L 12/25/17 05:55 Abs React Lymphs (Man) 0.1 K/mm3 12/25/17 05:55 Monocytes # (Manual) 0.7 K/mm3 (0.0-0.8) 12/25/17 05:55 Eosinophils # (Manual) 0.0 K/mm3 (0.0-0.4) 12/25/17 05:55 Basophils # (Manual) 0.0 K/mm3 (0.0-0.1) 12/25/17 05:55 Metamyelocytes # 0.0 K/mm3 12/25/17 05:55 Myelocytes # 0.0 K/mm3 12/25/17 05:55 Promyelocytes # 0.0 K/mm3 12/25/17 05:55 Blast Cells # 0.0 K/mm3 12/25/17 05:55 WBC Morphology Not Reportable 12/25/17 05:55 Hypersegmented Neuts Not Reportable 12/25/17 05:55 Hyposegmented Neuts Not Reportable 12/25/17 05:55 Hypogranular Neuts Not Reportable 12/25/17 05:55 Smudge Cells Not Reportable 12/25/17 05:55 Toxic Granulation Not Reportable 12/25/17 05:55 Toxic Vacuolation Not Reportable 12/25/17 05:55 Dohle Bodies Not Reportable 12/25/17 05:55 Pelger-Huet Anomaly Not Reportable 12/25/17 05:55 Pooja Rods Not Reportable 12/25/17 05:55 Platelet Estimate Consistent w auto 12/25/17 05:55 Clumped Platelets Not Reportable 12/25/17 05:55 Plt Clumps, EDTA Not Reportable 12/25/17 05:55 Large Platelets Not Reportable 12/25/17 05:55 Giant Platelets Not Reportable 12/25/17 05:55 Platelet Satelliting Not Reportable 12/25/17 05:55 Plt Morphology Comment Not Reportable 12/25/17 05:55 RBC Morphology Not Reportable 12/25/17 05:55 Dimorphic RBCs Not Reportable 12/25/17 05:55 Polychromasia Not Reportable 12/25/17 05:55 Hypochromasia 1+ 12/25/17 05:55 Poikilocytosis Not Reportable 12/25/17 05:55 Anisocytosis 1+ 12/25/17 05:55 Microcytosis 1+ 12/25/17 05:55 Macrocytosis Not Reportable 12/25/17 05:55 Spherocytes Not Reportable 12/25/17 05:55 Pappenheimer Bodies Not Reportable 12/25/17 05:55 Sickle Cells Not Reportable 12/25/17 05:55 Target Cells Not Reportable 12/25/17 05:55 Tear Drop Cells Not Reportable 12/25/17 05:55 Ovalocytes Not Reportable 12/25/17 05:55 Helmet Cells Not Reportable 12/25/17 05:55 Wood-Tyler Bodies Not Reportable 12/25/17 05:55 [place] Rings Not Reportable 12/25/17 05:55 [place] Cells Not Reportable 12/25/17 05:55 Bite Cells Not Reportable 12/25/17 05:55 Crenated Cell Not Reportable 12/25/17 05:55 Elliptocytes Not Reportable 12/25/17 05:55 Acanthocytes (Spur) Not Reportable 12/25/17 05:55 Rouleaux Not Reportable 12/25/17 05:55 Hemoglobin C Crystals Not Reportable 12/25/17 05:55 Schistocytes Not Reportable 12/25/17 05:55 Malaria parasites Not Reportable 12/25/17 05:55 López Bodies Not Reportable 12/25/17 05:55 Hem Pathologist Commnt No 12/25/17 05:55 PT 16.4 Sec. (12.2-14.9) H 12/28/17 13:16 INR 1.25 (0.87-1.13) H 12/28/17 13:16 Heparin Anti-Xa, Unfract Negative (Negative) 12/23/17 10:15 POC ABG pH 7.599 (7.35-7.45) H 12/27/17 04:07 POC ABG pCO2 42.4 (35-45) 12/27/17 04:07 POC ABG pO2 108 (80-105) H 12/27/17 04:07 POC ABG HCO3 41.6 12/27/17 04:07 POC ABG Total CO2 43 12/27/17 04:07 POC ABG O2 Sat 99 12/27/17 04:07 POC ABG Base Excess 20 12/27/17 04:07 VBG pH 7.320 (7.320-7.420) 12/20/17 23:35 FiO2 35 % 12/27/17 04:07 Sodium 140 mmol/L (137-145) D 01/02/18 Unknown Potassium 6.1 mmol/L (3.6-5.0) H* D 01/02/18 Unknown Chloride 110.6 mmol/L (98-107) H 01/02/18 Unknown Carbon Dioxide 20 mmol/L (22-30) L 01/02/18 Unknown Anion Gap 16 mmol/L 01/02/18 Unknown BUN 50 mg/dL (7-17) H 01/02/18 Unknown Creatinine 2.1 mg/dL (0.7-1.2) H 01/02/18 Unknown Estimated GFR 25 ml/min 01/02/18 Unknown BUN/Creatinine Ratio 24 % 01/02/18 Unknown Glucose 246 mg/dL (65-100) H 01/02/18 Unknown POC Glucose 265 (70-105) H 01/02/18 05:51 Lactic Acid 2.10 mmol/L (0.7-2.0) H* 12/25/17 09:41 Calcium 7.4 mg/dL (8.4-10.2) L 01/02/18 Unknown Phosphorus 3.50 mg/dL (2.5-4.5) 12/29/17 10:02 Magnesium 2.30 mg/dL (1.7-2.3) 12/29/17 10:02 Total Bilirubin 1.90 mg/dL (0.1-1.2) H 12/31/17 12:50 AST 85 units/L (5-40) H 12/31/17 12:50 ALT 50 units/L (7-56) 12/31/17 12:50 Alkaline Phosphatase 596 units/L (35-129) H 12/31/17 12:50 Ammonia 28.0 umol/L (25-60) 12/25/17 09:41 Total Creatine Kinase 117 units/L (30-135) 12/21/17 13:27 CK-MB (CK-2) 3.9 ng/mL (0.0-4.0) 12/21/17 13:27 CK-MB (CK-2) Rel Index 3.3 (0-4) 12/21/17 13:27 Troponin T 0.087 ng/mL (0.00-0.029) H 12/21/17 13:27 C-Reactive Protein 19.90 mg/dL (0.00-1.30) H 12/25/17 05:55 Total Protein 5.6 g/dL (6.3-8.2) L 12/31/17 12:50 Albumin 1.9 g/dL (3.9-5) L 12/31/17 12:50 Albumin/Globulin Ratio 0.5 % 12/31/17 12:50 Triglycerides 202 mg/dL (2-149) H 12/21/17 13:27 Cholesterol 57 mg/dL (50-199) 12/21/17 13:27 LDL Cholesterol Direct 6 mg/dL (50-130) L 12/21/17 13:27 HDL Cholesterol 10 mg/dL (40-59) L 12/21/17 13:27 Cholesterol/HDL Ratio 5.70 % 12/21/17 13:27 Serotonin Release Assay See scanned result 12/23/17 10:15 Urine Color Yellow (Yellow) 12/21/17 01:50 Urine Turbidity Clear (Clear) 12/21/17 01:50 Urine pH 5.0 (5.0-7.0) 12/21/17 01:50 Ur Specific [place] 1.015 (1.003-1.030) 12/21/17 01:50 Urine Protein <15 mg/dl mg/dL (Negative) 12/21/17 01:50 Urine Glucose (UA) >=500 mg/dL (Negative) 12/21/17 01:50 Urine Ketones Neg mg/dL (Negative) 12/21/17 01:50 Urine Blood Neg (Negative) 12/21/17 01:50 Urine Nitrite Neg (Negative) 12/21/17 01:50 Urine Bilirubin Neg (Negative) 12/21/17 01:50 Urine Urobilinogen < 2.0 mg/dL (<2.0) 12/21/17 01:50 Ur Leukocyte Esterase Sm (Negative) 12/21/17 01:50 Urine WBC (Auto) 38.0 /HPF (0.0-6.0) H 12/21/17 01:50 Urine RBC (Auto) 3.0 /HPF (0.0-6.0) 12/21/17 01:50 U Epithel Cells (Auto) 3.0 /HPF (0-13.0) 12/21/17 01:50 Urine Bacteria (Auto) 2+ /HPF (Negative) 12/21/17 01:50 Urine Creatinine 65.1 mg/dL (0.1-20.0) H 12/23/17 15:13 Urine Sodium 26 mmol/L 12/23/17 15:13 Fluid Type Pleural 12/29/17 15:45 Fluid Color Dark yellow 12/29/17 15:45 Fluid Appearance Clear 12/29/17 15:45 Fluid WBC 93 /mm3 12/29/17 15:45 Fluid RBC 125 /mm3 12/29/17 15:45 Fluid Seg Neutrophils 42.0 % 12/29/17 15:45 Fluid Lymphocytes 5.0 % 12/29/17 15:45 Fluid Reactive Lymphs 0 % 12/29/17 15:45 Fluid Monocytes 53.0 % 12/29/17 15:45 Fluid Eosinophils 0 % 12/29/17 15:45 Fluid Basophils 0 % 12/29/17 15:45 Fluid Total Protein < 3.0 (15.0-45.0) L 12/29/17 15:45 Fluid LDH 73 12/29/17 15:45 Fluid Cholesterol < 15 12/29/17 15:45 Fluid Comment Diff performed 12/29/17 15:45 Random Vancomycin 15.4 ug/mL (0-40.0) 12/22/17 Unknown Heparin-induced Plt Ab Negative (Negative) 12/23/17 10:15 UF Heparin High Dose 0 % Release 12/23/17 10:15 [place] UFH Low Dose 0.1 0 % Release 12/23/17 10:15 [place] UFH Low Dose 0.5 0 % Release 12/23/17 10:15 C. difficile Toxin A&B Negative (Negative) 12/21/17 04:52 Hepatitis A IgM Ab Non-reactive (NonReactive) 12/21/17 08:44 Hep Bs Antigen Non-reactive (Negative) 12/21/17 08:44 Hep B Core IgM Ab Non-reactive (NonReactive) 12/21/17 08:44 Hepatitis C Antibody Non-reactive (NonReactive) 12/21/17 08:44
--- NOTE | 2018-01-02 13:14 | Progress Note ---
Subjective Date of service: 01/02/18 Principal diagnosis: septic shock Interval history: Patient is seen today for: Seen and examined at bedside; 24hour events reviewed; nursing and respiratory care staff consulted; no adverse overnight events reported to me; Objective Vital Signs - 12hr 01/02/18 01/02/18 01/02/18 05:39 08:36 09:46 Temperature 98.3 F 98.3 F Pulse Rate 88 78 78 Respiratory 20 22 Rate Blood Pressure 164/85 187/97 187/97 O2 Sat by Pulse 89 94 Oximetry 01/02/18 10:00 Temperature Pulse Rate Respiratory Rate Blood Pressure O2 Sat by Pulse 95 Oximetry Constitutional: no acute distress, alert, appears uncomfortable Eyes: icteric ENT: oropharynx moist Neck: supple, no lymphadenopathy Ascultation: Bilateral: diminished breath sounds Cardiovascular: regular rate and rhythm Gastrointestinal: normoactive bowel sounds, soft, non-tender Integumentary: normal Extremities: no cyanosis, no edema Neurologic: non-focal exam, pupils equal and round Psychiatric: anxious CBC and BMP: 01/01/18 04:52 01/02/18 Unknown ABG, PT/INR, D-dimer: ABG POC ABG pH 7.599 (7.35-7.45) H 12/27/17 04:07 POC ABG pCO2 42.4 (35-45) 12/27/17 04:07 POC ABG pO2 108 (80-105) H 12/27/17 04:07 POC ABG HCO3 41.6 12/27/17 04:07 POC ABG Total CO2 43 12/27/17 04:07 POC ABG O2 Sat 99 12/27/17 04:07 PT/INR, D-dimer PT 16.4 Sec. (12.2-14.9) H 12/28/17 13:16 INR 1.25 (0.87-1.13) H 12/28/17 13:16 Abnormal lab findings: Abnormal Labs 12/20/17 12/20/17 12/20/17 23:35 23:35 23:35 WBC RBC Hgb Hct MCV 78 L MCH 26 L RDW 15.7 H Plt Count 77 L Lymph % (Auto) [place] % (Auto) Lymph # [place] # Seg Neutrophils % Seg Neuts % (Manual) 76.0 H Lymphocytes % (Manual) 6.0 L Seg Neutrophils # Seg Neutrophils # Man 8.2 H Lymphocytes # (Manual) 0.6 L PT 18.5 H INR 1.45 H POC ABG pH POC ABG pCO2 POC ABG pO2 Sodium 130 L Potassium 3.5 L Chloride 92.3 L Carbon Dioxide 17 L BUN 27 H Creatinine 2.2 H Glucose 535 H* POC Glucose Lactic Acid Calcium 7.0 L Phosphorus Magnesium Total Bilirubin AST ALT Alkaline Phosphatase 173 H Troponin T C-Reactive Protein Total Protein 5.1 L Albumin 2.6 L Triglycerides LDL Cholesterol Direct HDL Cholesterol Urine WBC (Auto) Urine Creatinine Fluid Total Protein 12/20/17 12/21/17 12/21/17 23:35 01:11 01:11 WBC RBC Hgb Hct MCV MCH RDW Plt Count Lymph % (Auto) [place] % (Auto) Lymph # [place] # Seg Neutrophils % Seg Neuts % (Manual) Lymphocytes % (Manual) Seg Neutrophils # Seg Neutrophils # Man Lymphocytes # (Manual) PT INR POC ABG pH POC ABG pCO2 POC ABG pO2 Sodium Potassium Chloride Carbon Dioxide BUN Creatinine Glucose POC Glucose Lactic Acid 8.30 H* 8.10 H* Calcium Phosphorus 1.90 L Magnesium 1.30 L Total Bilirubin AST ALT Alkaline Phosphatase Troponin T C-Reactive Protein Total Protein Albumin Triglycerides LDL Cholesterol Direct HDL Cholesterol Urine WBC (Auto) Urine Creatinine Fluid Total Protein 12/21/17 12/21/17 12/21/17 01:11 01:50 02:09 WBC RBC Hgb Hct MCV MCH RDW Plt Count Lymph % (Auto) [place] % (Auto) Lymph # [place] # Seg Neutrophils % Seg Neuts % (Manual) Lymphocytes % (Manual) Seg Neutrophils # Seg Neutrophils # Man Lymphocytes # (Manual) PT INR POC ABG pH POC ABG pCO2 POC ABG pO2 Sodium 133 L Potassium 3.3 L Chloride 97.9 L Carbon Dioxide 15 L BUN 26 H Creatinine 2.1 H Glucose 504 H* POC Glucose 391 H Lactic Acid Calcium 6.4 L Phosphorus Magnesium Total Bilirubin AST ALT Alkaline Phosphatase Troponin T C-Reactive Protein Total Protein Albumin Triglycerides LDL Cholesterol Direct HDL Cholesterol Urine WBC (Auto) 38.0 H Urine Creatinine Fluid Total Protein 12/21/17 12/21/17 12/21/17 03:10 03:26 05:15 WBC RBC Hgb Hct MCV MCH RDW Plt Count Lymph % (Auto) [place] % (Auto) Lymph # [place] # Seg Neutrophils % Seg Neuts % (Manual) Lymphocytes % (Manual) Seg Neutrophils # Seg Neutrophils # Man Lymphocytes # (Manual) PT INR POC ABG pH POC ABG pCO2 POC ABG pO2 Sodium 135 L Potassium 3.3 L Chloride Carbon Dioxide 14 L BUN 25 H Creatinine 1.9 H Glucose 443 H POC Glucose 389 H 407 H Lactic Acid Calcium 6.0 L Phosphorus Magnesium Total Bilirubin AST ALT Alkaline Phosphatase Troponin T C-Reactive Protein Total Protein Albumin Triglycerides LDL Cholesterol Direct HDL Cholesterol Urine WBC (Auto) Urine Creatinine Fluid Total Protein 12/21/17 12/21/17 12/21/17 06:00 06:00 06:09 WBC RBC Hgb Hct MCV MCH RDW Plt Count Lymph % (Auto) [place] % (Auto) Lymph # [place] # Seg Neutrophils % Seg Neuts % (Manual) Lymphocytes % (Manual) Seg Neutrophils # Seg Neutrophils # Man Lymphocytes # (Manual) PT INR POC ABG pH POC ABG pCO2 POC ABG pO2 Sodium Potassium 3.4 L Chloride Carbon Dioxide 12 L BUN 28 H Creatinine 1.9 H Glucose 283 H POC Glucose 326 H Lactic Acid 7.90 H* Calcium 6.0 L Phosphorus Magnesium Total Bilirubin AST ALT Alkaline Phosphatase Troponin T C-Reactive Protein Total Protein Albumin Triglycerides LDL Cholesterol Direct HDL Cholesterol Urine WBC (Auto) Urine Creatinine Fluid Total Protein 12/21/17 12/21/17 12/21/17 07:23 08:16 08:44 WBC RBC Hgb Hct MCV MCH RDW Plt Count Lymph % (Auto) [place] % (Auto) Lymph # [place] # Seg Neutrophils % Seg Neuts % (Manual) Lymphocytes % (Manual) Seg Neutrophils # Seg Neutrophils # Man Lymphocytes # (Manual) PT INR POC ABG pH POC ABG pCO2 POC ABG pO2 Sodium Potassium 3.3 L Chloride 107.8 H Carbon Dioxide 14 L BUN 29 H Creatinine 2.0 H Glucose 140 H POC Glucose 267 H 257 H Lactic Acid Calcium 6.2 L Phosphorus Magnesium Total Bilirubin AST ALT Alkaline Phosphatase Troponin T C-Reactive Protein Total Protein Albumin Triglycerides LDL Cholesterol Direct HDL Cholesterol Urine WBC (Auto) Urine Creatinine Fluid Total Protein 12/21/17 12/21/17 12/21/17 08:44 08:44 09:02 WBC RBC Hgb Hct MCV MCH RDW Plt Count Lymph % (Auto) [place] % (Auto) Lymph # [place] # Seg Neutrophils % Seg Neuts % (Manual) Lymphocytes % (Manual) Seg Neutrophils # Seg Neutrophils # Man Lymphocytes # (Manual) PT INR POC ABG pH POC ABG pCO2 POC ABG pO2 Sodium Potassium Chloride Carbon Dioxide BUN Creatinine Glucose POC Glucose 211 H Lactic Acid 6.40 H* Calcium Phosphorus Magnesium Total Bilirubin AST ALT Alkaline Phosphatase Troponin T C-Reactive Protein 27.10 H Total Protein Albumin Triglycerides LDL Cholesterol Direct HDL Cholesterol Urine WBC (Auto) Urine Creatinine Fluid Total Protein 12/21/17 12/21/17 12/21/17 09:35 10:27 11:57 WBC RBC Hgb Hct MCV MCH RDW Plt Count Lymph % (Auto) [place] % (Auto) Lymph # [place] # Seg Neutrophils % Seg Neuts % (Manual) Lymphocytes % (Manual) Seg Neutrophils # Seg Neutrophils # Man Lymphocytes # (Manual) PT INR POC ABG pH POC ABG pCO2 POC ABG pO2 Sodium Potassium Chloride Carbon Dioxide BUN Creatinine Glucose POC Glucose 182 H 142 H 134 H Lactic Acid Calcium Phosphorus Magnesium Total Bilirubin AST ALT Alkaline Phosphatase Troponin T C-Reactive Protein Total Protein Albumin Triglycerides LDL Cholesterol Direct HDL Cholesterol Urine WBC (Auto) Urine Creatinine Fluid Total Protein 12/21/17 12/21/17 12/21/17 13:27 15:20 17:39 WBC RBC Hgb Hct MCV MCH RDW Plt Count Lymph % (Auto) [place] % (Auto) Lymph # [place] # Seg Neutrophils % Seg Neuts % (Manual) Lymphocytes % (Manual) Seg Neutrophils # Seg Neutrophils # Man Lymphocytes # (Manual) PT INR POC ABG pH POC ABG pCO2 POC ABG pO2 Sodium Potassium Chloride Carbon Dioxide BUN Creatinine Glucose POC Glucose 161 H 189 H Lactic Acid Calcium Phosphorus Magnesium Total Bilirubin AST ALT Alkaline Phosphatase Troponin T 0.087 H C-Reactive Protein Total Protein Albumin Triglycerides 202 H LDL Cholesterol Direct 6 L HDL Cholesterol 10 L Urine WBC (Auto) Urine Creatinine Fluid Total Protein 12/21/17 12/21/17 12/21/17 17:47 19:32 20:56 WBC RBC Hgb Hct MCV MCH RDW Plt Count Lymph % (Auto) [place] % (Auto) Lymph # [place] # Seg Neutrophils % Seg Neuts % (Manual) Lymphocytes % (Manual) Seg Neutrophils # Seg Neutrophils # Man Lymphocytes # (Manual) PT INR POC ABG pH POC ABG pCO2 POC ABG pO2 Sodium Potassium Chloride 107.2 H Carbon Dioxide 14 L BUN 32 H Creatinine 2.4 H Glucose 171 H POC Glucose 160 H 136 H Lactic Acid Calcium 6.6 L Phosphorus Magnesium Total Bilirubin AST ALT Alkaline Phosphatase Troponin T C-Reactive Protein Total Protein Albumin Triglycerides LDL Cholesterol Direct HDL Cholesterol Urine WBC (Auto) Urine Creatinine Fluid Total Protein 12/21/17 12/22/17 12/22/17 21:12 00:29 03:08 WBC RBC Hgb Hct MCV MCH RDW Plt Count Lymph % (Auto) [place] % (Auto) Lymph # [place] # Seg Neutrophils % Seg Neuts % (Manual) Lymphocytes % (Manual) Seg Neutrophils # Seg Neutrophils # Man Lymphocytes # (Manual) PT INR POC ABG pH 7.152 L 7.241 L POC ABG pCO2 28.1 L POC ABG pO2 62 L 113 H Sodium Potassium Chloride Carbon Dioxide BUN Creatinine Glucose POC Glucose 109 H Lactic Acid Calcium Phosphorus Magnesium Total Bilirubin AST ALT Alkaline Phosphatase Troponin T C-Reactive Protein Total Protein Albumin Triglycerides LDL Cholesterol Direct HDL Cholesterol Urine WBC (Auto) Urine Creatinine Fluid Total Protein 12/22/17 12/22/17 12/22/17 04:29 04:30 04:30 WBC 21.9 H RBC Hgb Hct MCV 77 L MCH 25 L RDW 16.6 H Plt Count 57 L Lymph % (Auto) [place] % (Auto) Lymph # [place] # Seg Neutrophils % Seg Neuts % (Manual) Lymphocytes % (Manual) Seg Neutrophils # Seg Neutrophils # Man Lymphocytes # (Manual) PT INR POC ABG pH POC ABG pCO2 POC ABG pO2 Sodium Potassium Chloride Carbon Dioxide 14 L BUN 37 H Creatinine 2.7 H Glucose 145 H POC Glucose 139 H Lactic Acid Calcium 6.4 L Phosphorus Magnesium Total Bilirubin AST ALT Alkaline Phosphatase Troponin T C-Reactive Protein Total Protein Albumin Triglycerides LDL Cholesterol Direct HDL Cholesterol Urine WBC (Auto) Urine Creatinine Fluid Total Protein 12/22/17 12/22/17 12/22/17 04:30 05:24 05:54 WBC RBC Hgb Hct MCV MCH RDW Plt Count Lymph % (Auto) [place] % (Auto) Lymph # [place] # Seg Neutrophils % Seg Neuts % (Manual) Lymphocytes % (Manual) Seg Neutrophils # Seg Neutrophils # Man Lymphocytes # (Manual) PT INR POC ABG pH POC ABG pCO2 POC ABG pO2 Sodium Potassium Chloride Carbon Dioxide BUN Creatinine Glucose POC Glucose 144 H 145 H Lactic Acid 3.30 H* Calcium Phosphorus Magnesium Total Bilirubin AST ALT Alkaline Phosphatase Troponin T C-Reactive Protein Total Protein Albumin Triglycerides LDL Cholesterol Direct HDL Cholesterol Urine WBC (Auto) Urine Creatinine Fluid Total Protein 12/22/17 12/22/17 12/22/17 07:56 07:56 10:09 WBC RBC Hgb Hct MCV MCH RDW Plt Count Lymph % (Auto) [place] % (Auto) Lymph # [place] # Seg Neutrophils % Seg Neuts % (Manual) Lymphocytes % (Manual) Seg Neutrophils # Seg Neutrophils # Man Lymphocytes # (Manual) PT INR POC ABG pH 7.180 L POC ABG pCO2 POC ABG pO2 117 H Sodium Potassium Chloride Carbon Dioxide 14 L BUN 39 H Creatinine 2.9 H Glucose 174 H POC Glucose Lactic Acid 3.00 H* Calcium 6.7 L Phosphorus Magnesium Total Bilirubin AST ALT Alkaline Phosphatase Troponin T C-Reactive Protein Total Protein Albumin Triglycerides LDL Cholesterol Direct HDL Cholesterol Urine WBC (Auto) Urine Creatinine Fluid Total Protein 12/22/17 12/22/17 12/22/17 10:12 12:19 14:23 WBC RBC Hgb Hct MCV MCH RDW Plt Count Lymph % (Auto) [place] % (Auto) Lymph # [place] # Seg Neutrophils % Seg Neuts % (Manual) Lymphocytes % (Manual) Seg Neutrophils # Seg Neutrophils # Man Lymphocytes # (Manual) PT INR POC ABG pH 7.241 L 7.285 L POC ABG pCO2 33.9 L 29.9 L POC ABG pO2 45 L 117 H Sodium Potassium Chloride Carbon Dioxide BUN Creatinine Glucose POC Glucose 185 H Lactic Acid Calcium Phosphorus Magnesium Total Bilirubin AST ALT Alkaline Phosphatase Troponin T C-Reactive Protein Total Protein Albumin Triglycerides LDL Cholesterol Direct HDL Cholesterol Urine WBC (Auto) Urine Creatinine Fluid Total Protein 12/22/17 12/22/17 12/22/17 14:27 17:22 19:58 WBC RBC Hgb Hct MCV MCH RDW Plt Count Lymph % (Auto) [place] % (Auto) Lymph # [place] # Seg Neutrophils % Seg Neuts % (Manual) Lymphocytes % (Manual) Seg Neutrophils # Seg Neutrophils # Man Lymphocytes # (Manual) PT INR POC ABG pH 7.338 L POC ABG pCO2 27.6 L POC ABG pO2 167 H Sodium Potassium Chloride Carbon Dioxide BUN Creatinine Glucose POC Glucose 220 H 197 H Lactic Acid Calcium Phosphorus Magnesium Total Bilirubin AST ALT Alkaline Phosphatase Troponin T C-Reactive Protein Total Protein Albumin Triglycerides LDL Cholesterol Direct HDL Cholesterol Urine WBC (Auto) Urine Creatinine Fluid Total Protein 12/22/17 12/23/17 12/23/17 21:18 05:30 05:30 WBC 14.5 H RBC Hgb Hct MCV 75 L MCH 26 L RDW 16.7 H Plt Count 26 L Lymph % (Auto) [place] % (Auto) Lymph # [place] # Seg Neutrophils % Seg Neuts % (Manual) Lymphocytes % (Manual) Seg Neutrophils # Seg Neutrophils # Man Lymphocytes # (Manual) PT INR POC ABG pH POC ABG pCO2 POC ABG pO2 Sodium Potassium Chloride Carbon Dioxide 15 L BUN 49 H Creatinine 3.5 H Glucose 123 H POC Glucose 189 H Lactic Acid Calcium 6.7 L Phosphorus Magnesium Total Bilirubin 3.60 H AST 93 H ALT 58 H Alkaline Phosphatase Troponin T C-Reactive Protein Total Protein 4.5 L Albumin 2.0 L Triglycerides LDL Cholesterol Direct HDL Cholesterol Urine WBC (Auto) Urine Creatinine Fluid Total Protein 12/23/17 12/23/17 12/23/17 05:30 12:31 15:13 WBC RBC Hgb Hct MCV MCH RDW Plt Count Lymph % (Auto) [place] % (Auto) Lymph # [place] # Seg Neutrophils % Seg Neuts % (Manual) Lymphocytes % (Manual) Seg Neutrophils # Seg Neutrophils # Man Lymphocytes # (Manual) PT INR POC ABG pH POC ABG pCO2 POC ABG pO2 Sodium Potassium Chloride Carbon Dioxide BUN Creatinine Glucose POC Glucose 141 H Lactic Acid Calcium Phosphorus Magnesium Total Bilirubin AST ALT Alkaline Phosphatase Troponin T C-Reactive Protein 38.70 H Total Protein Albumin Triglycerides LDL Cholesterol Direct HDL Cholesterol Urine WBC (Auto) Urine Creatinine 65.1 H Fluid Total Protein 12/23/17 12/24/17 12/24/17 18:53 00:13 05:15 WBC 14.7 H RBC Hgb Hct MCV 76 L MCH 25 L RDW 16.6 H Plt Count 20 L Lymph % (Auto) [place] % (Auto) Lymph # [place] # Seg Neutrophils % Seg Neuts % (Manual) Lymphocytes % (Manual) Seg Neutrophils # Seg Neutrophils # Man Lymphocytes # (Manual) PT INR POC ABG pH POC ABG pCO2 POC ABG pO2 Sodium Potassium Chloride Carbon Dioxide BUN Creatinine Glucose POC Glucose 205 H 207 H Lactic Acid Calcium Phosphorus Magnesium Total Bilirubin AST ALT Alkaline Phosphatase Troponin T C-Reactive Protein Total Protein Albumin Triglycerides LDL Cholesterol Direct HDL Cholesterol Urine WBC (Auto) Urine Creatinine Fluid Total Protein 12/24/17 12/24/17 12/24/17 05:15 05:51 08:31 WBC RBC Hgb Hct MCV MCH RDW Plt Count Lymph % (Auto) [place] % (Auto) Lymph # [place] # Seg Neutrophils % Seg Neuts % (Manual) Lymphocytes % (Manual) Seg Neutrophils # Seg Neutrophils # Man Lymphocytes # (Manual) PT INR POC ABG pH POC ABG pCO2 POC ABG pO2 Sodium Potassium Chloride 107.2 H Carbon Dioxide 19 L BUN 67 H Creatinine 4.0 H Glucose 150 H POC Glucose 176 H 251 H Lactic Acid Calcium 7.2 L Phosphorus Magnesium Total Bilirubin 5.60 H AST 47 H ALT Alkaline Phosphatase Troponin T C-Reactive Protein Total Protein 4.3 L Albumin 1.9 L Triglycerides LDL Cholesterol Direct HDL Cholesterol Urine WBC (Auto) Urine Creatinine Fluid Total Protein 12/24/17 12/24/17 12/24/17 11:53 17:19 21:16 WBC RBC Hgb Hct MCV MCH RDW Plt Count Lymph % (Auto) [place] % (Auto) Lymph # [place] # Seg Neutrophils % Seg Neuts % (Manual) Lymphocytes % (Manual) Seg Neutrophils # Seg Neutrophils # Man Lymphocytes # (Manual) PT INR POC ABG pH POC ABG pCO2 POC ABG pO2 Sodium Potassium Chloride Carbon Dioxide BUN Creatinine Glucose POC Glucose 274 H 302 H 345 H Lactic Acid Calcium Phosphorus Magnesium Total Bilirubin AST ALT Alkaline Phosphatase Troponin T C-Reactive Protein Total Protein Albumin Triglycerides LDL Cholesterol Direct HDL Cholesterol Urine WBC (Auto) Urine Creatinine Fluid Total Protein 12/25/17 12/25/17 12/25/17 05:55 05:55 05:55 WBC 13.7 H RBC Hgb Hct 30.2 L MCV 75 L MCH 25 L RDW 17.2 H Plt Count 24 L Lymph % (Auto) [place] % (Auto) Lymph # [place] # Seg Neutrophils % Seg Neuts % (Manual) 85.0 H Lymphocytes % (Manual) 3.0 L Seg Neutrophils # Seg Neutrophils # Man 11.6 H Lymphocytes # (Manual) 0.4 L PT INR POC ABG pH POC ABG pCO2 POC ABG pO2 Sodium Potassium 3.5 L Chloride Carbon Dioxide BUN 81 H Creatinine 3.9 H Glucose 471 H POC Glucose Lactic Acid Calcium 7.5 L Phosphorus Magnesium Total Bilirubin 7.70 H AST ALT Alkaline Phosphatase 234 H Troponin T C-Reactive Protein 19.90 H Total Protein 4.9 L Albumin 1.6 L Triglycerides LDL Cholesterol Direct HDL Cholesterol Urine WBC (Auto) Urine Creatinine Fluid Total Protein 12/25/17 12/25/17 12/25/17 08:21 09:41 12:14 WBC RBC Hgb Hct MCV MCH RDW Plt Count Lymph % (Auto) [place] % (Auto) Lymph # [place] # Seg Neutrophils % Seg Neuts % (Manual) Lymphocytes % (Manual) Seg Neutrophils # Seg Neutrophils # Man Lymphocytes # (Manual) PT INR POC ABG pH POC ABG pCO2 POC ABG pO2 Sodium Potassium Chloride Carbon Dioxide BUN Creatinine Glucose POC Glucose 468 H 405 H Lactic Acid 2.10 H* Calcium Phosphorus Magnesium Total Bilirubin AST ALT Alkaline Phosphatase Troponin T C-Reactive Protein Total Protein Albumin Triglycerides LDL Cholesterol Direct HDL Cholesterol Urine WBC (Auto) Urine Creatinine Fluid Total Protein 12/25/17 12/25/17 12/26/17 16:13 21:46 06:54 WBC 16.6 H RBC Hgb 10.0 L Hct 29.3 L MCV 74 L MCH 25 L RDW 16.5 H Plt Count 27 L Lymph % (Auto) [place] % (Auto) Lymph # [place] # Seg Neutrophils % Seg Neuts % (Manual) Lymphocytes % (Manual) Seg Neutrophils # Seg Neutrophils # Man Lymphocytes # (Manual) PT INR POC ABG pH POC ABG pCO2 POC ABG pO2 Sodium Potassium Chloride Carbon Dioxide BUN Creatinine Glucose POC Glucose 264 H 249 H Lactic Acid Calcium Phosphorus Magnesium Total Bilirubin AST ALT Alkaline Phosphatase Troponin T C-Reactive Protein Total Protein Albumin Triglycerides LDL Cholesterol Direct HDL Cholesterol Urine WBC (Auto) Urine Creatinine Fluid Total Protein 12/26/17 12/26/17 12/26/17 06:54 07:57 11:36 WBC RBC Hgb Hct MCV MCH RDW Plt Count Lymph % (Auto) [place] % (Auto) Lymph # [place] # Seg Neutrophils % Seg Neuts % (Manual) Lymphocytes % (Manual) Seg Neutrophils # Seg Neutrophils # Man Lymphocytes # (Manual) PT INR POC ABG pH POC ABG pCO2 POC ABG pO2 Sodium Potassium 3.0 L Chloride 97.7 L Carbon Dioxide 32 H BUN 78 H Creatinine 3.8 H Glucose 353 H POC Glucose 384 H 274 H Lactic Acid Calcium 7.2 L Phosphorus Magnesium Total Bilirubin 6.00 H AST 50 H ALT Alkaline Phosphatase 265 H Troponin T C-Reactive Protein Total Protein 4.8 L Albumin 1.4 L Triglycerides LDL Cholesterol Direct HDL Cholesterol Urine WBC (Auto) Urine Creatinine Fluid Total Protein 12/26/17 12/26/17 12/27/17 18:33 21:21 02:04 WBC RBC Hgb Hct MCV MCH RDW Plt Count Lymph % (Auto) [place] % (Auto) Lymph # [place] # Seg Neutrophils % Seg Neuts % (Manual) Lymphocytes % (Manual) Seg Neutrophils # Seg Neutrophils # Man Lymphocytes # (Manual) PT INR POC ABG pH POC ABG pCO2 POC ABG pO2 Sodium Potassium Chloride Carbon Dioxide BUN Creatinine Glucose POC Glucose 198 H 182 H 200 H Lactic Acid Calcium Phosphorus Magnesium Total Bilirubin AST ALT Alkaline Phosphatase Troponin T C-Reactive Protein Total Protein Albumin Triglycerides LDL Cholesterol Direct HDL Cholesterol Urine WBC (Auto) Urine Creatinine Fluid Total Protein 12/27/17 12/27/17 12/27/17 04:07 05:24 06:40 WBC 16.8 H RBC Hgb 9.7 L Hct 29.5 L MCV 74 L MCH 24 L RDW 16.9 H Plt Count 43 L Lymph % (Auto) [place] % (Auto) Lymph # [place] # Seg Neutrophils % Seg Neuts % (Manual) Lymphocytes % (Manual) Seg Neutrophils # Seg Neutrophils # Man Lymphocytes # (Manual) PT INR POC ABG pH 7.599 H POC ABG pCO2 POC ABG pO2 108 H Sodium Potassium Chloride Carbon Dioxide BUN Creatinine Glucose POC Glucose 156 H Lactic Acid Calcium Phosphorus Magnesium Total Bilirubin AST ALT Alkaline Phosphatase Troponin T C-Reactive Protein Total Protein Albumin Triglycerides LDL Cholesterol Direct HDL Cholesterol Urine WBC (Auto) Urine Creatinine Fluid Total Protein 12/27/17 12/27/17 12/27/17 06:40 11:03 15:50 WBC RBC Hgb Hct MCV MCH RDW Plt Count Lymph % (Auto) [place] % (Auto) Lymph # [place] # Seg Neutrophils % Seg Neuts % (Manual) Lymphocytes % (Manual) Seg Neutrophils # Seg Neutrophils # Man Lymphocytes # (Manual) PT INR POC ABG pH POC ABG pCO2 POC ABG pO2 Sodium Potassium 3.5 L Chloride Carbon Dioxide 36 H BUN 81 H Creatinine 3.8 H Glucose 153 H POC Glucose 220 H 275 H Lactic Acid Calcium 7.6 L Phosphorus Magnesium Total Bilirubin AST ALT Alkaline Phosphatase Troponin T C-Reactive Protein Total Protein Albumin Triglycerides LDL Cholesterol Direct HDL Cholesterol Urine WBC (Auto) Urine Creatinine Fluid Total Protein 12/27/17 12/27/17 12/28/17 17:23 21:44 02:05 WBC RBC Hgb Hct MCV MCH RDW Plt Count Lymph % (Auto) [place] % (Auto) Lymph # [place] # Seg Neutrophils % Seg Neuts % (Manual) Lymphocytes % (Manual) Seg Neutrophils # Seg Neutrophils # Man Lymphocytes # (Manual) PT INR POC ABG pH POC ABG pCO2 POC ABG pO2 Sodium Potassium Chloride Carbon Dioxide BUN Creatinine Glucose POC Glucose 256 H 180 H 148 H Lactic Acid Calcium Phosphorus Magnesium Total Bilirubin AST ALT Alkaline Phosphatase Troponin T C-Reactive Protein Total Protein Albumin Triglycerides LDL Cholesterol Direct HDL Cholesterol Urine WBC (Auto) Urine Creatinine Fluid Total Protein 12/28/17 12/28/17 12/28/17 04:45 05:00 08:14 WBC RBC Hgb Hct MCV MCH RDW Plt Count Lymph % (Auto) [place] % (Auto) Lymph # [place] # Seg Neutrophils % Seg Neuts % (Manual) Lymphocytes % (Manual) Seg Neutrophils # Seg Neutrophils # Man Lymphocytes # (Manual) PT INR POC ABG pH POC ABG pCO2 POC ABG pO2 Sodium 147 H Potassium 3.3 L Chloride Carbon Dioxide 32 H BUN 82 H Creatinine 3.9 H Glucose 212 H POC Glucose 205 H 180 H Lactic Acid Calcium 7.6 L Phosphorus Magnesium Total Bilirubin AST ALT Alkaline Phosphatase Troponin T C-Reactive Protein Total Protein Albumin Triglycerides LDL Cholesterol Direct HDL Cholesterol Urine WBC (Auto) Urine Creatinine Fluid Total Protein 12/28/17 12/28/17 12/28/17 12:07 13:16 16:28 WBC RBC Hgb Hct MCV MCH RDW Plt Count Lymph % (Auto) [place] % (Auto) Lymph # [place] # Seg Neutrophils % Seg Neuts % (Manual) Lymphocytes % (Manual) Seg Neutrophils # Seg Neutrophils # Man Lymphocytes # (Manual) PT 16.4 H INR 1.25 H POC ABG pH POC ABG pCO2 POC ABG pO2 Sodium Potassium Chloride Carbon Dioxide BUN Creatinine Glucose POC Glucose 213 H 126 H Lactic Acid Calcium Phosphorus Magnesium Total Bilirubin AST ALT Alkaline Phosphatase Troponin T C-Reactive Protein Total Protein Albumin Triglycerides LDL Cholesterol Direct HDL Cholesterol Urine WBC (Auto) Urine Creatinine Fluid Total Protein 12/28/17 12/29/17 12/29/17 21:41 06:36 10:02 WBC 17.1 H RBC Hgb 9.3 L Hct 28.5 L MCV 76 L MCH 25 L RDW 17.2 H Plt Count 107 L D Lymph % (Auto) 6.8 L [place] % (Auto) 7.4 H Lymph # [place] # 1.3 H Seg Neutrophils % 85.0 H Seg Neuts % (Manual) Lymphocytes % (Manual) Seg Neutrophils # 14.5 H Seg Neutrophils # Man Lymphocytes # (Manual) PT INR POC ABG pH POC ABG pCO2 POC ABG pO2 Sodium Potassium Chloride Carbon Dioxide BUN Creatinine Glucose POC Glucose 201 H 243 H Lactic Acid Calcium Phosphorus Magnesium Total Bilirubin AST ALT Alkaline Phosphatase Troponin T C-Reactive Protein Total Protein Albumin Triglycerides LDL Cholesterol Direct HDL Cholesterol Urine WBC (Auto) Urine Creatinine Fluid Total Protein 12/29/17 12/29/17 12/29/17 10:02 11:49 15:45 WBC RBC Hgb Hct MCV MCH RDW Plt Count Lymph % (Auto) [place] % (Auto) Lymph # [place] # Seg Neutrophils % Seg Neuts % (Manual) Lymphocytes % (Manual) Seg Neutrophils # Seg Neutrophils # Man Lymphocytes # (Manual) PT INR POC ABG pH POC ABG pCO2 POC ABG pO2 Sodium 151 H Potassium 3.3 L Chloride 108.8 H Carbon Dioxide BUN 81 H Creatinine 3.8 H Glucose 166 H POC Glucose 207 H Lactic Acid Calcium 7.7 L Phosphorus Magnesium Total Bilirubin 2.40 H AST 48 H ALT Alkaline Phosphatase 239 H Troponin T C-Reactive Protein Total Protein 5.5 L Albumin 1.7 L Triglycerides LDL Cholesterol Direct HDL Cholesterol Urine WBC (Auto) Urine Creatinine Fluid Total Protein < 3.0 L 12/29/17 12/29/17 12/30/17 17:33 22:21 01:08 WBC RBC Hgb Hct MCV MCH RDW Plt Count Lymph % (Auto) [place] % (Auto) Lymph # [place] # Seg Neutrophils % Seg Neuts % (Manual) Lymphocytes % (Manual) Seg Neutrophils # Seg Neutrophils # Man Lymphocytes # (Manual) PT INR POC ABG pH POC ABG pCO2 POC ABG pO2 Sodium Potassium Chloride Carbon Dioxide BUN Creatinine Glucose POC Glucose 110 H 242 H 161 H Lactic Acid Calcium Phosphorus Magnesium Total Bilirubin AST ALT Alkaline Phosphatase Troponin T C-Reactive Protein Total Protein Albumin Triglycerides LDL Cholesterol Direct HDL Cholesterol Urine WBC (Auto) Urine Creatinine Fluid Total Protein 12/30/17 12/30/17 12/30/17 05:30 05:30 05:39 WBC 16.6 H RBC 3.63 L Hgb 9.1 L Hct 26.7 L MCV 74 L MCH 25 L RDW 16.9 H Plt Count 119 L Lymph % (Auto) 7.5 L [place] % (Auto) 7.5 H Lymph # [place] # 1.2 H Seg Neutrophils % 83.5 H Seg Neuts % (Manual) Lymphocytes % (Manual) Seg Neutrophils # 13.9 H Seg Neutrophils # Man Lymphocytes # (Manual) PT INR POC ABG pH POC ABG pCO2 POC ABG pO2 Sodium 146 H Potassium 2.9 L* Chloride Carbon Dioxide BUN 80 H Creatinine 3.5 H Glucose 160 H POC Glucose 113 H Lactic Acid Calcium 7.5 L Phosphorus Magnesium Total Bilirubin 2.30 H AST 87 H ALT Alkaline Phosphatase 403 H Troponin T C-Reactive Protein Total Protein 5.1 L Albumin 1.5 L Triglycerides LDL Cholesterol Direct HDL Cholesterol Urine WBC (Auto) Urine Creatinine Fluid Total Protein 12/30/17 12/30/17 12/30/17 06:09 11:02 16:40 WBC RBC Hgb Hct MCV MCH RDW Plt Count Lymph % (Auto) [place] % (Auto) Lymph # [place] # Seg Neutrophils % Seg Neuts % (Manual) Lymphocytes % (Manual) Seg Neutrophils # Seg Neutrophils # Man Lymphocytes # (Manual) PT INR POC ABG pH POC ABG pCO2 POC ABG pO2 Sodium Potassium Chloride Carbon Dioxide BUN Creatinine Glucose POC Glucose 189 H 265 H 224 H Lactic Acid Calcium Phosphorus Magnesium Total Bilirubin AST ALT Alkaline Phosphatase Troponin T C-Reactive Protein Total Protein Albumin Triglycerides LDL Cholesterol Direct HDL Cholesterol Urine WBC (Auto) Urine Creatinine Fluid Total Protein 12/30/17 12/31/17 12/31/17 21:51 02:11 06:23 WBC RBC Hgb Hct MCV MCH RDW Plt Count Lymph % (Auto) [place] % (Auto) Lymph # [place] # Seg Neutrophils % Seg Neuts % (Manual) Lymphocytes % (Manual) Seg Neutrophils # Seg Neutrophils # Man Lymphocytes # (Manual) PT INR POC ABG pH POC ABG pCO2 POC ABG pO2 Sodium Potassium Chloride Carbon Dioxide BUN Creatinine Glucose POC Glucose 262 H 171 H 147 H Lactic Acid Calcium Phosphorus Magnesium Total Bilirubin AST ALT Alkaline Phosphatase Troponin T C-Reactive Protein Total Protein Albumin Triglycerides LDL Cholesterol Direct HDL Cholesterol Urine WBC (Auto) Urine Creatinine Fluid Total Protein 12/31/17 12/31/17 12/31/17 11:05 12:50 12:50 WBC 13.2 H RBC 3.28 L Hgb 8.3 L Hct 24.8 L MCV 76 L MCH 25 L RDW 17.0 H Plt Count 131 L Lymph % (Auto) 7.6 L [place] % (Auto) Lymph # 1.0 L [place] # Seg Neutrophils % 84.8 H Seg Neuts % (Manual) Lymphocytes % (Manual) Seg Neutrophils # 11.2 H Seg Neutrophils # Man Lymphocytes # (Manual) PT INR POC ABG pH POC ABG pCO2 POC ABG pO2 Sodium 147 H Potassium 3.1 L Chloride 107.9 H Carbon Dioxide BUN 74 H Creatinine 3.0 H Glucose 184 H POC Glucose 199 H Lactic Acid Calcium 7.5 L Phosphorus Magnesium Total Bilirubin 1.90 H AST 85 H ALT Alkaline Phosphatase 596 H Troponin T C-Reactive Protein Total Protein 5.6 L Albumin 1.9 L Triglycerides LDL Cholesterol Direct HDL Cholesterol Urine WBC (Auto) Urine Creatinine Fluid Total Protein 12/31/17 12/31/17 12/31/17 14:52 18:10 22:01 WBC RBC Hgb Hct MCV MCH RDW Plt Count Lymph % (Auto) [place] % (Auto) Lymph # [place] # Seg Neutrophils % Seg Neuts % (Manual) Lymphocytes % (Manual) Seg Neutrophils # Seg Neutrophils # Man Lymphocytes # (Manual) PT INR POC ABG pH POC ABG pCO2 POC ABG pO2 Sodium Potassium Chloride Carbon Dioxide BUN Creatinine Glucose POC Glucose 202 H 189 H 150 H Lactic Acid Calcium Phosphorus Magnesium Total Bilirubin AST ALT Alkaline Phosphatase Troponin T C-Reactive Protein Total Protein Albumin Triglycerides LDL Cholesterol Direct HDL Cholesterol Urine WBC (Auto) Urine Creatinine Fluid Total Protein 01/01/18 01/01/18 01/01/18 01:54 04:52 04:52 WBC 13.1 H RBC 3.17 L Hgb 7.9 L Hct 23.8 L MCV 75 L MCH 25 L RDW 16.5 H Plt Count 121 L Lymph % (Auto) [place] % (Auto) Lymph # [place] # Seg Neutrophils % Seg Neuts % (Manual) Lymphocytes % (Manual) Seg Neutrophils # Seg Neutrophils # Man Lymphocytes # (Manual) PT INR POC ABG pH POC ABG pCO2 POC ABG pO2 Sodium 151 H Potassium Chloride 116.6 H Carbon Dioxide BUN 65 H Creatinine 2.8 H Glucose 172 H POC Glucose 208 H Lactic Acid Calcium 7.5 L Phosphorus Magnesium Total Bilirubin AST ALT Alkaline Phosphatase Troponin T C-Reactive Protein Total Protein Albumin Triglycerides LDL Cholesterol Direct HDL Cholesterol Urine WBC (Auto) Urine Creatinine Fluid Total Protein 01/01/18 01/01/18 01/01/18 05:20 10:16 14:09 WBC RBC Hgb Hct MCV MCH RDW Plt Count Lymph % (Auto) [place] % (Auto) Lymph # [place] # Seg Neutrophils % Seg Neuts % (Manual) Lymphocytes % (Manual) Seg Neutrophils # Seg Neutrophils # Man Lymphocytes # (Manual) PT INR POC ABG pH POC ABG pCO2 POC ABG pO2 Sodium Potassium Chloride Carbon Dioxide BUN Creatinine Glucose POC Glucose 202 H 231 H 322 H Lactic Acid Calcium Phosphorus Magnesium Total Bilirubin AST ALT Alkaline Phosphatase Troponin T C-Reactive Protein Total Protein Albumin Triglycerides LDL Cholesterol Direct HDL Cholesterol Urine WBC (Auto) Urine Creatinine Fluid Total Protein 01/01/18 01/02/18 01/02/18 18:15 00:55 05:51 WBC RBC Hgb Hct MCV MCH RDW Plt Count Lymph % (Auto) [place] % (Auto) Lymph # [place] # Seg Neutrophils % Seg Neuts % (Manual) Lymphocytes % (Manual) Seg Neutrophils # Seg Neutrophils # Man Lymphocytes # (Manual) PT INR POC ABG pH POC ABG pCO2 POC ABG pO2 Sodium Potassium Chloride Carbon Dioxide BUN Creatinine Glucose POC Glucose 258 H 284 H 265 H Lactic Acid Calcium Phosphorus Magnesium Total Bilirubin AST ALT Alkaline Phosphatase Troponin T C-Reactive Protein Total Protein Albumin Triglycerides LDL Cholesterol Direct HDL Cholesterol Urine WBC (Auto) Urine Creatinine Fluid Total Protein 01/02/18 Unknown WBC RBC Hgb Hct MCV MCH RDW Plt Count Lymph % (Auto) [place] % (Auto) Lymph # [place] # Seg Neutrophils % Seg Neuts % (Manual) Lymphocytes % (Manual) Seg Neutrophils # Seg Neutrophils # Man Lymphocytes # (Manual) PT INR POC ABG pH POC ABG pCO2 POC ABG pO2 Sodium Potassium 6.1 H* D Chloride 110.6 H Carbon Dioxide 20 L BUN 50 H Creatinine 2.1 H Glucose 246 H POC Glucose Lactic Acid Calcium 7.4 L Phosphorus Magnesium Total Bilirubin AST ALT Alkaline Phosphatase Troponin T C-Reactive Protein Total Protein Albumin Triglycerides LDL Cholesterol Direct HDL Cholesterol Urine WBC (Auto) Urine Creatinine Fluid Total Protein
--- NOTE | 2018-01-02 16:06 | Progress Note ---
Assessment and Plan Severe sepsis with shock. Acute Hypoxemic Resp Failure Left Pleural Effusion (Transudate) MARLENE Hyperglycemia and mild diabetic ketoacidosis. Possible urinary tract infection. E. Coli Bacteremia Nausea and vomiting. Diarrhea. Metabolic acidosis. Hypophosphatemia. Hypomagnesemia. Acute kidney injury, possibly on chronic. Thrombocytopenia - continue to wean oxygen to keep sats > 90% - prn CXR re: Effusion - prn bronchodilators - continue antibiotics per ID recs (on levaquin) - continue to monitor liver enzymes - nephrology to see in consult - suspicion for scables and placed in contact isolation - continue long acting insulin and SSI - continue GI & VTE prophylaxis - continue other care per attending / other consultants - replace electrolytes .. 25' Subjective Date of service: 01/02/18 Principal diagnosis: Sever Sepsis with septic shock; DKA; UTI Interval history: Patient is seen today for: Sever Sepsis with septic shock; DKA; UTI Seen and examined at bedside; 24hour events reviewed; nursing and respiratory care staff consulted; no adverse overnight events reported to me; laying in bed ; denies chest pains or -palpitations; denies fevers or chills; remains on supplemental oxygen; No cough or expectoration Objective Vital Signs - 12hr 01/02/18 01/02/18 01/02/18 05:39 08:36 09:46 Temperature 98.3 F 98.3 F Pulse Rate 88 78 78 Respiratory 20 22 Rate Blood Pressure 164/85 187/97 187/97 O2 Sat by Pulse 89 94 Oximetry 01/02/18 10:00 Temperature Pulse Rate Respiratory Rate Blood Pressure O2 Sat by Pulse 95 Oximetry Constitutional: appears uncomfortable, other (middle aged female; looks chronically ill, normocephalic and atraumatic) Eyes: non-icteric ENT: oropharynx moist, other (mallampatti II) Neck: supple, no lymphadenopathy, no JVD, other (no thyromegaly) Effort: mildly labored Ascultation: Bilateral: diminished breath sounds, rhonchi Percussion: Bilateral: not dull Cardiovascular: regular rate and rhythm, other (No R/M) Gastrointestinal: normoactive bowel sounds, soft, non-tender, non-distended, other (No palpable HSM) Integumentary: rash Extremities: no cyanosis, no edema, pink and warm, pulses normal, no ischemia or petechiae Neurologic: non-focal exam, pupils equal and round, CN II-XII normal Psychiatric: mood appropriate, affect normal CBC and BMP: 01/05/18 06:19 01/05/18 06:19 ABG, PT/INR, D-dimer: ABG POC ABG pH 7.599 (7.35-7.45) H 12/27/17 04:07 POC ABG pCO2 42.4 (35-45) 12/27/17 04:07 POC ABG pO2 108 (80-105) H 12/27/17 04:07 POC ABG HCO3 41.6 12/27/17 04:07 POC ABG Total CO2 43 12/27/17 04:07 POC ABG O2 Sat 99 12/27/17 04:07 PT/INR, D-dimer PT 16.4 Sec. (12.2-14.9) H 12/28/17 13:16 INR 1.25 (0.87-1.13) H 12/28/17 13:16 Abnormal lab findings: Abnormal Labs 12/20/17 12/20/17 12/20/17 23:35 23:35 23:35 WBC RBC Hgb Hct MCV 78 L MCH 26 L RDW 15.7 H Plt Count 77 L Lymph % (Auto) [place] % (Auto) Lymph # [place] # Seg Neutrophils % Seg Neuts % (Manual) 76.0 H Lymphocytes % (Manual) 6.0 L Seg Neutrophils # Seg Neutrophils # Man 8.2 H Lymphocytes # (Manual) 0.6 L PT 18.5 H INR 1.45 H POC ABG pH POC ABG pCO2 POC ABG pO2 Sodium 130 L Potassium 3.5 L Chloride 92.3 L Carbon Dioxide 17 L BUN 27 H Creatinine 2.2 H Glucose 535 H* POC Glucose Lactic Acid Calcium 7.0 L Phosphorus Magnesium Total Bilirubin AST ALT Alkaline Phosphatase 173 H Troponin T C-Reactive Protein Total Protein 5.1 L Albumin 2.6 L Triglycerides LDL Cholesterol Direct HDL Cholesterol Urine WBC (Auto) Urine Creatinine Fluid Total Protein 12/20/17 12/21/17 12/21/17 23:35 01:11 01:11 WBC RBC Hgb Hct MCV MCH RDW Plt Count Lymph % (Auto) [place] % (Auto) Lymph # [place] # Seg Neutrophils % Seg Neuts % (Manual) Lymphocytes % (Manual) Seg Neutrophils # Seg Neutrophils # Man Lymphocytes # (Manual) PT INR POC ABG pH POC ABG pCO2 POC ABG pO2 Sodium Potassium Chloride Carbon Dioxide BUN Creatinine Glucose POC Glucose Lactic Acid 8.30 H* 8.10 H* Calcium Phosphorus 1.90 L Magnesium 1.30 L Total Bilirubin AST ALT Alkaline Phosphatase Troponin T C-Reactive Protein Total Protein Albumin Triglycerides LDL Cholesterol Direct HDL Cholesterol Urine WBC (Auto) Urine Creatinine Fluid Total Protein 12/21/17 12/21/17 12/21/17 01:11 01:50 02:09 WBC RBC Hgb Hct MCV MCH RDW Plt Count Lymph % (Auto) [place] % (Auto) Lymph # [place] # Seg Neutrophils % Seg Neuts % (Manual) Lymphocytes % (Manual) Seg Neutrophils # Seg Neutrophils # Man Lymphocytes # (Manual) PT INR POC ABG pH POC ABG pCO2 POC ABG pO2 Sodium 133 L Potassium 3.3 L Chloride 97.9 L Carbon Dioxide 15 L BUN 26 H Creatinine 2.1 H Glucose 504 H* POC Glucose 391 H Lactic Acid Calcium 6.4 L Phosphorus Magnesium Total Bilirubin AST ALT Alkaline Phosphatase Troponin T C-Reactive Protein Total Protein Albumin Triglycerides LDL Cholesterol Direct HDL Cholesterol Urine WBC (Auto) 38.0 H Urine Creatinine Fluid Total Protein 12/21/17 12/21/17 12/21/17 03:10 03:26 05:15 WBC RBC Hgb Hct MCV MCH RDW Plt Count Lymph % (Auto) [place] % (Auto) Lymph # [place] # Seg Neutrophils % Seg Neuts % (Manual) Lymphocytes % (Manual) Seg Neutrophils # Seg Neutrophils # Man Lymphocytes # (Manual) PT INR POC ABG pH POC ABG pCO2 POC ABG pO2 Sodium 135 L Potassium 3.3 L Chloride Carbon Dioxide 14 L BUN 25 H Creatinine 1.9 H Glucose 443 H POC Glucose 389 H 407 H Lactic Acid Calcium 6.0 L Phosphorus Magnesium Total Bilirubin AST ALT Alkaline Phosphatase Troponin T C-Reactive Protein Total Protein Albumin Triglycerides LDL Cholesterol Direct HDL Cholesterol Urine WBC (Auto) Urine Creatinine Fluid Total Protein 12/21/17 12/21/17 12/21/17 06:00 06:00 06:09 WBC RBC Hgb Hct MCV MCH RDW Plt Count Lymph % (Auto) [place] % (Auto) Lymph # [place] # Seg Neutrophils % Seg Neuts % (Manual) Lymphocytes % (Manual) Seg Neutrophils # Seg Neutrophils # Man Lymphocytes # (Manual) PT INR POC ABG pH POC ABG pCO2 POC ABG pO2 Sodium Potassium 3.4 L Chloride Carbon Dioxide 12 L BUN 28 H Creatinine 1.9 H Glucose 283 H POC Glucose 326 H Lactic Acid 7.90 H* Calcium 6.0 L Phosphorus Magnesium Total Bilirubin AST ALT Alkaline Phosphatase Troponin T C-Reactive Protein Total Protein Albumin Triglycerides LDL Cholesterol Direct HDL Cholesterol Urine WBC (Auto) Urine Creatinine Fluid Total Protein 12/21/17 12/21/17 12/21/17 07:23 08:16 08:44 WBC RBC Hgb Hct MCV MCH RDW Plt Count Lymph % (Auto) [place] % (Auto) Lymph # [place] # Seg Neutrophils % Seg Neuts % (Manual) Lymphocytes % (Manual) Seg Neutrophils # Seg Neutrophils # Man Lymphocytes # (Manual) PT INR POC ABG pH POC ABG pCO2 POC ABG pO2 Sodium Potassium 3.3 L Chloride 107.8 H Carbon Dioxide 14 L BUN 29 H Creatinine 2.0 H Glucose 140 H POC Glucose 267 H 257 H Lactic Acid Calcium 6.2 L Phosphorus Magnesium Total Bilirubin AST ALT Alkaline Phosphatase Troponin T C-Reactive Protein Total Protein Albumin Triglycerides LDL Cholesterol Direct HDL Cholesterol Urine WBC (Auto) Urine Creatinine Fluid Total Protein 12/21/17 12/21/17 12/21/17 08:44 08:44 09:02 WBC RBC Hgb Hct MCV MCH RDW Plt Count Lymph % (Auto) [place] % (Auto) Lymph # [place] # Seg Neutrophils % Seg Neuts % (Manual) Lymphocytes % (Manual) Seg Neutrophils # Seg Neutrophils # Man Lymphocytes # (Manual) PT INR POC ABG pH POC ABG pCO2 POC ABG pO2 Sodium Potassium Chloride Carbon Dioxide BUN Creatinine Glucose POC Glucose 211 H Lactic Acid 6.40 H* Calcium Phosphorus Magnesium Total Bilirubin AST ALT Alkaline Phosphatase Troponin T C-Reactive Protein 27.10 H Total Protein Albumin Triglycerides LDL Cholesterol Direct HDL Cholesterol Urine WBC (Auto) Urine Creatinine Fluid Total Protein 12/21/17 12/21/17 12/21/17 09:35 10:27 11:57 WBC RBC Hgb Hct MCV MCH RDW Plt Count Lymph % (Auto) [place] % (Auto) Lymph # [place] # Seg Neutrophils % Seg Neuts % (Manual) Lymphocytes % (Manual) Seg Neutrophils # Seg Neutrophils # Man Lymphocytes # (Manual) PT INR POC ABG pH POC ABG pCO2 POC ABG pO2 Sodium Potassium Chloride Carbon Dioxide BUN Creatinine Glucose POC Glucose 182 H 142 H 134 H Lactic Acid Calcium Phosphorus Magnesium Total Bilirubin AST ALT Alkaline Phosphatase Troponin T C-Reactive Protein Total Protein Albumin Triglycerides LDL Cholesterol Direct HDL Cholesterol Urine WBC (Auto) Urine Creatinine Fluid Total Protein 12/21/17 12/21/17 12/21/17 13:27 15:20 17:39 WBC RBC Hgb Hct MCV MCH RDW Plt Count Lymph % (Auto) [place] % (Auto) Lymph # [place] # Seg Neutrophils % Seg Neuts % (Manual) Lymphocytes % (Manual) Seg Neutrophils # Seg Neutrophils # Man Lymphocytes # (Manual) PT INR POC ABG pH POC ABG pCO2 POC ABG pO2 Sodium Potassium Chloride Carbon Dioxide BUN Creatinine Glucose POC Glucose 161 H 189 H Lactic Acid Calcium Phosphorus Magnesium Total Bilirubin AST ALT Alkaline Phosphatase Troponin T 0.087 H C-Reactive Protein Total Protein Albumin Triglycerides 202 H LDL Cholesterol Direct 6 L HDL Cholesterol 10 L Urine WBC (Auto) Urine Creatinine Fluid Total Protein 12/21/17 12/21/17 12/21/17 17:47 19:32 20:56 WBC RBC Hgb Hct MCV MCH RDW Plt Count Lymph % (Auto) [place] % (Auto) Lymph # [place] # Seg Neutrophils % Seg Neuts % (Manual) Lymphocytes % (Manual) Seg Neutrophils # Seg Neutrophils # Man Lymphocytes # (Manual) PT INR POC ABG pH POC ABG pCO2 POC ABG pO2 Sodium Potassium Chloride 107.2 H Carbon Dioxide 14 L BUN 32 H Creatinine 2.4 H Glucose 171 H POC Glucose 160 H 136 H Lactic Acid Calcium 6.6 L Phosphorus Magnesium Total Bilirubin AST ALT Alkaline Phosphatase Troponin T C-Reactive Protein Total Protein Albumin Triglycerides LDL Cholesterol Direct HDL Cholesterol Urine WBC (Auto) Urine Creatinine Fluid Total Protein 12/21/17 12/22/17 12/22/17 21:12 00:29 03:08 WBC RBC Hgb Hct MCV MCH RDW Plt Count Lymph % (Auto) [place] % (Auto) Lymph # [place] # Seg Neutrophils % Seg Neuts % (Manual) Lymphocytes % (Manual) Seg Neutrophils # Seg Neutrophils # Man Lymphocytes # (Manual) PT INR POC ABG pH 7.152 L 7.241 L POC ABG pCO2 28.1 L POC ABG pO2 62 L 113 H Sodium Potassium Chloride Carbon Dioxide BUN Creatinine Glucose POC Glucose 109 H Lactic Acid Calcium Phosphorus Magnesium Total Bilirubin AST ALT Alkaline Phosphatase Troponin T C-Reactive Protein Total Protein Albumin Triglycerides LDL Cholesterol Direct HDL Cholesterol Urine WBC (Auto) Urine Creatinine Fluid Total Protein 0612/22/17 12/22/17 04:29 04:30 04:30 WBC 21.9 H RBC Hgb Hct MCV 77 L MCH 25 L RDW 16.6 H Plt Count 57 L Lymph % (Auto) [place] % (Auto) Lymph # [place] # Seg Neutrophils % Seg Neuts % (Manual) Lymphocytes % (Manual) Seg Neutrophils # Seg Neutrophils # Man Lymphocytes # (Manual) PT INR POC ABG pH POC ABG pCO2 POC ABG pO2 Sodium Potassium Chloride Carbon Dioxide 14 L BUN 37 H Creatinine 2.7 H Glucose 145 H POC Glucose 139 H Lactic Acid Calcium 6.4 L Phosphorus Magnesium Total Bilirubin AST ALT Alkaline Phosphatase Troponin T C-Reactive Protein Total Protein Albumin Triglycerides LDL Cholesterol Direct HDL Cholesterol Urine WBC (Auto) Urine Creatinine Fluid Total Protein 12/22/17 12/22/17 12/22/17 04:30 05:24 05:54 WBC RBC Hgb Hct MCV MCH RDW Plt Count Lymph % (Auto) [place] % (Auto) Lymph # [place] # Seg Neutrophils % Seg Neuts % (Manual) Lymphocytes % (Manual) Seg Neutrophils # Seg Neutrophils # Man Lymphocytes # (Manual) PT INR POC ABG pH POC ABG pCO2 POC ABG pO2 Sodium Potassium Chloride Carbon Dioxide BUN Creatinine Glucose POC Glucose 144 H 145 H Lactic Acid 3.30 H* Calcium Phosphorus Magnesium Total Bilirubin AST ALT Alkaline Phosphatase Troponin T C-Reactive Protein Total Protein Albumin Triglycerides LDL Cholesterol Direct HDL Cholesterol Urine WBC (Auto) Urine Creatinine Fluid Total Protein 12/22/17 12/22/17 12/22/17 07:56 07:56 10:09 WBC RBC Hgb Hct MCV MCH RDW Plt Count Lymph % (Auto) [place] % (Auto) Lymph # [place] # Seg Neutrophils % Seg Neuts % (Manual) Lymphocytes % (Manual) Seg Neutrophils # Seg Neutrophils # Man Lymphocytes # (Manual) PT INR POC ABG pH 7.180 L POC ABG pCO2 POC ABG pO2 117 H Sodium Potassium Chloride Carbon Dioxide 14 L BUN 39 H Creatinine 2.9 H Glucose 174 H POC Glucose Lactic Acid 3.00 H* Calcium 6.7 L Phosphorus Magnesium Total Bilirubin AST ALT Alkaline Phosphatase Troponin T C-Reactive Protein Total Protein Albumin Triglycerides LDL Cholesterol Direct HDL Cholesterol Urine WBC (Auto) Urine Creatinine Fluid Total Protein 12/22/17 12/22/17 12/22/17 10:12 12:19 14:23 WBC RBC Hgb Hct MCV MCH RDW Plt Count Lymph % (Auto) [place] % (Auto) Lymph # [place] # Seg Neutrophils % Seg Neuts % (Manual) Lymphocytes % (Manual) Seg Neutrophils # Seg Neutrophils # Man Lymphocytes # (Manual) PT INR POC ABG pH 7.241 L 7.285 L POC ABG pCO2 33.9 L 29.9 L POC ABG pO2 45 L 117 H Sodium Potassium Chloride Carbon Dioxide BUN Creatinine Glucose POC Glucose 185 H Lactic Acid Calcium Phosphorus Magnesium Total Bilirubin AST ALT Alkaline Phosphatase Troponin T C-Reactive Protein Total Protein Albumin Triglycerides LDL Cholesterol Direct HDL Cholesterol Urine WBC (Auto) Urine Creatinine Fluid Total Protein 12/22/17 12/22/17 12/22/17 14:27 17:22 19:58 WBC RBC Hgb Hct MCV MCH RDW Plt Count Lymph % (Auto) [place] % (Auto) Lymph # [place] # Seg Neutrophils % Seg Neuts % (Manual) Lymphocytes % (Manual) Seg Neutrophils # Seg Neutrophils # Man Lymphocytes # (Manual) PT INR POC ABG pH 7.338 L POC ABG pCO2 27.6 L POC ABG pO2 167 H Sodium Potassium Chloride Carbon Dioxide BUN Creatinine Glucose POC Glucose 220 H 197 H Lactic Acid Calcium Phosphorus Magnesium Total Bilirubin AST ALT Alkaline Phosphatase Troponin T C-Reactive Protein Total Protein Albumin Triglycerides LDL Cholesterol Direct HDL Cholesterol Urine WBC (Auto) Urine Creatinine Fluid Total Protein 12/22/17 12/23/17 12/23/17 21:18 05:30 05:30 WBC 14.5 H RBC Hgb Hct MCV 75 L MCH 26 L RDW 16.7 H Plt Count 26 L Lymph % (Auto) [place] % (Auto) Lymph # [place] # Seg Neutrophils % Seg Neuts % (Manual) Lymphocytes % (Manual) Seg Neutrophils # Seg Neutrophils # Man Lymphocytes # (Manual) PT INR POC ABG pH POC ABG pCO2 POC ABG pO2 Sodium Potassium Chloride Carbon Dioxide 15 L BUN 49 H Creatinine 3.5 H Glucose 123 H POC Glucose 189 H Lactic Acid Calcium 6.7 L Phosphorus Magnesium Total Bilirubin 3.60 H AST 93 H ALT 58 H Alkaline Phosphatase Troponin T C-Reactive Protein Total Protein 4.5 L Albumin 2.0 L Triglycerides LDL Cholesterol Direct HDL Cholesterol Urine WBC (Auto) Urine Creatinine Fluid Total Protein 12/23/17 12/23/17 12/23/17 05:30 12:31 15:13 WBC RBC Hgb Hct MCV MCH RDW Plt Count Lymph % (Auto) [place] % (Auto) Lymph # [place] # Seg Neutrophils % Seg Neuts % (Manual) Lymphocytes % (Manual) Seg Neutrophils # Seg Neutrophils # Man Lymphocytes # (Manual) PT INR POC ABG pH POC ABG pCO2 POC ABG pO2 Sodium Potassium Chloride Carbon Dioxide BUN Creatinine Glucose POC Glucose 141 H Lactic Acid Calcium Phosphorus Magnesium Total Bilirubin AST ALT Alkaline Phosphatase Troponin T C-Reactive Protein 38.70 H Total Protein Albumin Triglycerides LDL Cholesterol Direct HDL Cholesterol Urine WBC (Auto) Urine Creatinine 65.1 H Fluid Total Protein 12/23/17 12/24/17 12/24/17 18:53 00:13 05:15 WBC 14.7 H RBC Hgb Hct MCV 76 L MCH 25 L RDW 16.6 H Plt Count 20 L Lymph % (Auto) [place] % (Auto) Lymph # [place] # Seg Neutrophils % Seg Neuts % (Manual) Lymphocytes % (Manual) Seg Neutrophils # Seg Neutrophils # Man Lymphocytes # (Manual) PT INR POC ABG pH POC ABG pCO2 POC ABG pO2 Sodium Potassium Chloride Carbon Dioxide BUN Creatinine Glucose POC Glucose 205 H 207 H Lactic Acid Calcium Phosphorus Magnesium Total Bilirubin AST ALT Alkaline Phosphatase Troponin T C-Reactive Protein Total Protein Albumin Triglycerides LDL Cholesterol Direct HDL Cholesterol Urine WBC (Auto) Urine Creatinine Fluid Total Protein 12/24/17 12/24/17 12/24/17 05:15 05:51 08:31 WBC RBC Hgb Hct MCV MCH RDW Plt Count Lymph % (Auto) [place] % (Auto) Lymph # [place] # Seg Neutrophils % Seg Neuts % (Manual) Lymphocytes % (Manual) Seg Neutrophils # Seg Neutrophils # Man Lymphocytes # (Manual) PT INR POC ABG pH POC ABG pCO2 POC ABG pO2 Sodium Potassium Chloride 107.2 H Carbon Dioxide 19 L BUN 67 H Creatinine 4.0 H Glucose 150 H POC Glucose 176 H 251 H Lactic Acid Calcium 7.2 L Phosphorus Magnesium Total Bilirubin 5.60 H AST 47 H ALT Alkaline Phosphatase Troponin T C-Reactive Protein Total Protein 4.3 L Albumin 1.9 L Triglycerides LDL Cholesterol Direct HDL Cholesterol Urine WBC (Auto) Urine Creatinine Fluid Total Protein 12/24/17 12/24/17 12/24/17 11:53 17:19 21:16 WBC RBC Hgb Hct MCV MCH RDW Plt Count Lymph % (Auto) [place] % (Auto) Lymph # [place] # Seg Neutrophils % Seg Neuts % (Manual) Lymphocytes % (Manual) Seg Neutrophils # Seg Neutrophils # Man Lymphocytes # (Manual) PT INR POC ABG pH POC ABG pCO2 POC ABG pO2 Sodium Potassium Chloride Carbon Dioxide BUN Creatinine Glucose POC Glucose 274 H 302 H 345 H Lactic Acid Calcium Phosphorus Magnesium Total Bilirubin AST ALT Alkaline Phosphatase Troponin T C-Reactive Protein Total Protein Albumin Triglycerides LDL Cholesterol Direct HDL Cholesterol Urine WBC (Auto) Urine Creatinine Fluid Total Protein 12/25/17 12/25/17 12/25/17 05:55 05:55 05:55 WBC 13.7 H RBC Hgb Hct 30.2 L MCV 75 L MCH 25 L RDW 17.2 H Plt Count 24 L Lymph % (Auto) [place] % (Auto) Lymph # [place] # Seg Neutrophils % Seg Neuts % (Manual) 85.0 H Lymphocytes % (Manual) 3.0 L Seg Neutrophils # Seg Neutrophils # Man 11.6 H Lymphocytes # (Manual) 0.4 L PT INR POC ABG pH POC ABG pCO2 POC ABG pO2 Sodium Potassium 3.5 L Chloride Carbon Dioxide BUN 81 H Creatinine 3.9 H Glucose 471 H POC Glucose Lactic Acid Calcium 7.5 L Phosphorus Magnesium Total Bilirubin 7.70 H AST ALT Alkaline Phosphatase 234 H Troponin T C-Reactive Protein 19.90 H Total Protein 4.9 L Albumin 1.6 L Triglycerides LDL Cholesterol Direct HDL Cholesterol Urine WBC (Auto) Urine Creatinine Fluid Total Protein 12/25/17 12/25/17 12/25/17 08:21 09:41 12:14 WBC RBC Hgb Hct MCV MCH RDW Plt Count Lymph % (Auto) [place] % (Auto) Lymph # [place] # Seg Neutrophils % Seg Neuts % (Manual) Lymphocytes % (Manual) Seg Neutrophils # Seg Neutrophils # Man Lymphocytes # (Manual) PT INR POC ABG pH POC ABG pCO2 POC ABG pO2 Sodium Potassium Chloride Carbon Dioxide BUN Creatinine Glucose POC Glucose 468 H 405 H Lactic Acid 2.10 H* Calcium Phosphorus Magnesium Total Bilirubin AST ALT Alkaline Phosphatase Troponin T C-Reactive Protein Total Protein Albumin Triglycerides LDL Cholesterol Direct HDL Cholesterol Urine WBC (Auto) Urine Creatinine Fluid Total Protein 12/25/17 12/25/17 12/26/17 16:13 21:46 06:54 WBC 16.6 H RBC Hgb 10.0 L Hct 29.3 L MCV 74 L MCH 25 L RDW 16.5 H Plt Count 27 L Lymph % (Auto) [place] % (Auto) Lymph # [place] # Seg Neutrophils % Seg Neuts % (Manual) Lymphocytes % (Manual) Seg Neutrophils # Seg Neutrophils # Man Lymphocytes # (Manual) PT INR POC ABG pH POC ABG pCO2 POC ABG pO2 Sodium Potassium Chloride Carbon Dioxide BUN Creatinine Glucose POC Glucose 264 H 249 H Lactic Acid Calcium Phosphorus Magnesium Total Bilirubin AST ALT Alkaline Phosphatase Troponin T C-Reactive Protein Total Protein Albumin Triglycerides LDL Cholesterol Direct HDL Cholesterol Urine WBC (Auto) Urine Creatinine Fluid Total Protein 12/26/17 12/26/17 12/26/17 06:54 07:57 11:36 WBC RBC Hgb Hct MCV MCH RDW Plt Count Lymph % (Auto) [place] % (Auto) Lymph # [place] # Seg Neutrophils % Seg Neuts % (Manual) Lymphocytes % (Manual) Seg Neutrophils # Seg Neutrophils # Man Lymphocytes # (Manual) PT INR POC ABG pH POC ABG pCO2 POC ABG pO2 Sodium Potassium 3.0 L Chloride 97.7 L Carbon Dioxide 32 H BUN 78 H Creatinine 3.8 H Glucose 353 H POC Glucose 384 H 274 H Lactic Acid Calcium 7.2 L Phosphorus Magnesium Total Bilirubin 6.00 H AST 50 H ALT Alkaline Phosphatase 265 H Troponin T C-Reactive Protein Total Protein 4.8 L Albumin 1.4 L Triglycerides LDL Cholesterol Direct HDL Cholesterol Urine WBC (Auto) Urine Creatinine Fluid Total Protein 12/26/17 12/26/17 12/27/17 18:33 21:21 02:04 WBC RBC Hgb Hct MCV MCH RDW Plt Count Lymph % (Auto) [place] % (Auto) Lymph # [place] # Seg Neutrophils % Seg Neuts % (Manual) Lymphocytes % (Manual) Seg Neutrophils # Seg Neutrophils # Man Lymphocytes # (Manual) PT INR POC ABG pH POC ABG pCO2 POC ABG pO2 Sodium Potassium Chloride Carbon Dioxide BUN Creatinine Glucose POC Glucose 198 H 182 H 200 H Lactic Acid Calcium Phosphorus Magnesium Total Bilirubin AST ALT Alkaline Phosphatase Troponin T C-Reactive Protein Total Protein Albumin Triglycerides LDL Cholesterol Direct HDL Cholesterol Urine WBC (Auto) Urine Creatinine Fluid Total Protein 12/27/17 12/27/17 12/27/17 04:07 05:24 06:40 WBC 16.8 H RBC Hgb 9.7 L Hct 29.5 L MCV 74 L MCH 24 L RDW 16.9 H Plt Count 43 L Lymph % (Auto) [place] % (Auto) Lymph # [place] # Seg Neutrophils % Seg Neuts % (Manual) Lymphocytes % (Manual) Seg Neutrophils # Seg Neutrophils # Man Lymphocytes # (Manual) PT INR POC ABG pH 7.599 H POC ABG pCO2 POC ABG pO2 108 H Sodium Potassium Chloride Carbon Dioxide BUN Creatinine Glucose POC Glucose 156 H Lactic Acid Calcium Phosphorus Magnesium Total Bilirubin AST ALT Alkaline Phosphatase Troponin T C-Reactive Protein Total Protein Albumin Triglycerides LDL Cholesterol Direct HDL Cholesterol Urine WBC (Auto) Urine Creatinine Fluid Total Protein 12/27/17 12/27/17 12/27/17 06:40 11:03 15:50 WBC RBC Hgb Hct MCV MCH RDW Plt Count Lymph % (Auto) [place] % (Auto) Lymph # [place] # Seg Neutrophils % Seg Neuts % (Manual) Lymphocytes % (Manual) Seg Neutrophils # Seg Neutrophils # Man Lymphocytes # (Manual) PT INR POC ABG pH POC ABG pCO2 POC ABG pO2 Sodium Potassium 3.5 L Chloride Carbon Dioxide 36 H BUN 81 H Creatinine 3.8 H Glucose 153 H POC Glucose 220 H 275 H Lactic Acid Calcium 7.6 L Phosphorus Magnesium Total Bilirubin AST ALT Alkaline Phosphatase Troponin T C-Reactive Protein Total Protein Albumin Triglycerides LDL Cholesterol Direct HDL Cholesterol Urine WBC (Auto) Urine Creatinine Fluid Total Protein 12/27/17 12/27/17 12/28/17 17:23 21:44 02:05 WBC RBC Hgb Hct MCV MCH RDW Plt Count Lymph % (Auto) [place] % (Auto) Lymph # [place] # Seg Neutrophils % Seg Neuts % (Manual) Lymphocytes % (Manual) Seg Neutrophils # Seg Neutrophils # Man Lymphocytes # (Manual) PT INR POC ABG pH POC ABG pCO2 POC ABG pO2 Sodium Potassium Chloride Carbon Dioxide BUN Creatinine Glucose POC Glucose 256 H 180 H 148 H Lactic Acid Calcium Phosphorus Magnesium Total Bilirubin AST ALT Alkaline Phosphatase Troponin T C-Reactive Protein Total Protein Albumin Triglycerides LDL Cholesterol Direct HDL Cholesterol Urine WBC (Auto) Urine Creatinine Fluid Total Protein 12/28/17 12/28/17 12/28/17 04:45 05:00 08:14 WBC RBC Hgb Hct MCV MCH RDW Plt Count Lymph % (Auto) [place] % (Auto) Lymph # [place] # Seg Neutrophils % Seg Neuts % (Manual) Lymphocytes % (Manual) Seg Neutrophils # Seg Neutrophils # Man Lymphocytes # (Manual) PT INR POC ABG pH POC ABG pCO2 POC ABG pO2 Sodium 147 H Potassium 3.3 L Chloride Carbon Dioxide 32 H BUN 82 H Creatinine 3.9 H Glucose 212 H POC Glucose 205 H 180 H Lactic Acid Calcium 7.6 L Phosphorus Magnesium Total Bilirubin AST ALT Alkaline Phosphatase Troponin T C-Reactive Protein Total Protein Albumin Triglycerides LDL Cholesterol Direct HDL Cholesterol Urine WBC (Auto) Urine Creatinine Fluid Total Protein 12/28/17 12/28/17 12/28/17 12:07 13:16 16:28 WBC RBC Hgb Hct MCV MCH RDW Plt Count Lymph % (Auto) [place] % (Auto) Lymph # [place] # Seg Neutrophils % Seg Neuts % (Manual) Lymphocytes % (Manual) Seg Neutrophils # Seg Neutrophils # Man Lymphocytes # (Manual) PT 16.4 H INR 1.25 H POC ABG pH POC ABG pCO2 POC ABG pO2 Sodium Potassium Chloride Carbon Dioxide BUN Creatinine Glucose POC Glucose 213 H 126 H Lactic Acid Calcium Phosphorus Magnesium Total Bilirubin AST ALT Alkaline Phosphatase Troponin T C-Reactive Protein Total Protein Albumin Triglycerides LDL Cholesterol Direct HDL Cholesterol Urine WBC (Auto) Urine Creatinine Fluid Total Protein 12/28/17 12/29/17 12/29/17 21:41 06:36 10:02 WBC 17.1 H RBC Hgb 9.3 L Hct 28.5 L MCV 76 L MCH 25 L RDW 17.2 H Plt Count 107 L D Lymph % (Auto) 6.8 L [place] % (Auto) 7.4 H Lymph # [place] # 1.3 H Seg Neutrophils % 85.0 H Seg Neuts % (Manual) Lymphocytes % (Manual) Seg Neutrophils # 14.5 H Seg Neutrophils # Man Lymphocytes # (Manual) PT INR POC ABG pH POC ABG pCO2 POC ABG pO2 Sodium Potassium Chloride Carbon Dioxide BUN Creatinine Glucose POC Glucose 201 H 243 H Lactic Acid Calcium Phosphorus Magnesium Total Bilirubin AST ALT Alkaline Phosphatase Troponin T C-Reactive Protein Total Protein Albumin Triglycerides LDL Cholesterol Direct HDL Cholesterol Urine WBC (Auto) Urine Creatinine Fluid Total Protein 12/29/17 12/29/17 12/29/17 10:02 11:49 15:45 WBC RBC Hgb Hct MCV MCH RDW Plt Count Lymph % (Auto) [place] % (Auto) Lymph # [place] # Seg Neutrophils % Seg Neuts % (Manual) Lymphocytes % (Manual) Seg Neutrophils # Seg Neutrophils # Man Lymphocytes # (Manual) PT INR POC ABG pH POC ABG pCO2 POC ABG pO2 Sodium 151 H Potassium 3.3 L Chloride 108.8 H Carbon Dioxide BUN 81 H Creatinine 3.8 H Glucose 166 H POC Glucose 207 H Lactic Acid Calcium 7.7 L Phosphorus Magnesium Total Bilirubin 2.40 H AST 48 H ALT Alkaline Phosphatase 239 H Troponin T C-Reactive Protein Total Protein 5.5 L Albumin 1.7 L Triglycerides LDL Cholesterol Direct HDL Cholesterol Urine WBC (Auto) Urine Creatinine Fluid Total Protein < 3.0 L 12/29/17 12/29/17 12/30/17 17:33 22:21 01:08 WBC RBC Hgb Hct MCV MCH RDW Plt Count Lymph % (Auto) [place] % (Auto) Lymph # [place] # Seg Neutrophils % Seg Neuts % (Manual) Lymphocytes % (Manual) Seg Neutrophils # Seg Neutrophils # Man Lymphocytes # (Manual) PT INR POC ABG pH POC ABG pCO2 POC ABG pO2 Sodium Potassium Chloride Carbon Dioxide BUN Creatinine Glucose POC Glucose 110 H 242 H 161 H Lactic Acid Calcium Phosphorus Magnesium Total Bilirubin AST ALT Alkaline Phosphatase Troponin T C-Reactive Protein Total Protein Albumin Triglycerides LDL Cholesterol Direct HDL Cholesterol Urine WBC (Auto) Urine Creatinine Fluid Total Protein 12/30/17 12/30/17 12/30/17 05:30 05:30 05:39 WBC 16.6 H RBC 3.63 L Hgb 9.1 L Hct 26.7 L MCV 74 L MCH 25 L RDW 16.9 H Plt Count 119 L Lymph % (Auto) 7.5 L [place] % (Auto) 7.5 H Lymph # [place] # 1.2 H Seg Neutrophils % 83.5 H Seg Neuts % (Manual) Lymphocytes % (Manual) Seg Neutrophils # 13.9 H Seg Neutrophils # Man Lymphocytes # (Manual) PT INR POC ABG pH POC ABG pCO2 POC ABG pO2 Sodium 146 H Potassium 2.9 L* Chloride Carbon Dioxide BUN 80 H Creatinine 3.5 H Glucose 160 H POC Glucose 113 H Lactic Acid Calcium 7.5 L Phosphorus Magnesium Total Bilirubin 2.30 H AST 87 H ALT Alkaline Phosphatase 403 H Troponin T C-Reactive Protein Total Protein 5.1 L Albumin 1.5 L Triglycerides LDL Cholesterol Direct HDL Cholesterol Urine WBC (Auto) Urine Creatinine Fluid Total Protein 12/30/17 12/30/17 12/30/17 06:09 11:02 16:40 WBC RBC Hgb Hct MCV MCH RDW Plt Count Lymph % (Auto) [place] % (Auto) Lymph # [place] # Seg Neutrophils % Seg Neuts % (Manual) Lymphocytes % (Manual) Seg Neutrophils # Seg Neutrophils # Man Lymphocytes # (Manual) PT INR POC ABG pH POC ABG pCO2 POC ABG pO2 Sodium Potassium Chloride Carbon Dioxide BUN Creatinine Glucose POC Glucose 189 H 265 H 224 H Lactic Acid Calcium Phosphorus Magnesium Total Bilirubin AST ALT Alkaline Phosphatase Troponin T C-Reactive Protein Total Protein Albumin Triglycerides LDL Cholesterol Direct HDL Cholesterol Urine WBC (Auto) Urine Creatinine Fluid Total Protein 12/30/17 12/31/17 12/31/17 21:51 02:11 06:23 WBC RBC Hgb Hct MCV MCH RDW Plt Count Lymph % (Auto) [place] % (Auto) Lymph # [place] # Seg Neutrophils % Seg Neuts % (Manual) Lymphocytes % (Manual) Seg Neutrophils # Seg Neutrophils # Man Lymphocytes # (Manual) PT INR POC ABG pH POC ABG pCO2 POC ABG pO2 Sodium Potassium Chloride Carbon Dioxide BUN Creatinine Glucose POC Glucose 262 H 171 H 147 H Lactic Acid Calcium Phosphorus Magnesium Total Bilirubin AST ALT Alkaline Phosphatase Troponin T C-Reactive Protein Total Protein Albumin Triglycerides LDL Cholesterol Direct HDL Cholesterol Urine WBC (Auto) Urine Creatinine Fluid Total Protein 12/31/17 12/31/17 12/31/17 11:05 12:50 12:50 WBC 13.2 H RBC 3.28 L Hgb 8.3 L Hct 24.8 L MCV 76 L MCH 25 L RDW 17.0 H Plt Count 131 L Lymph % (Auto) 7.6 L [place] % (Auto) Lymph # 1.0 L [place] # Seg Neutrophils % 84.8 H Seg Neuts % (Manual) Lymphocytes % (Manual) Seg Neutrophils # 11.2 H Seg Neutrophils # Man Lymphocytes # (Manual) PT INR POC ABG pH POC ABG pCO2 POC ABG pO2 Sodium 147 H Potassium 3.1 L Chloride 107.9 H Carbon Dioxide BUN 74 H Creatinine 3.0 H Glucose 184 H POC Glucose 199 H Lactic Acid Calcium 7.5 L Phosphorus Magnesium Total Bilirubin 1.90 H AST 85 H ALT Alkaline Phosphatase 596 H Troponin T C-Reactive Protein Total Protein 5.6 L Albumin 1.9 L Triglycerides LDL Cholesterol Direct HDL Cholesterol Urine WBC (Auto) Urine Creatinine Fluid Total Protein 12/31/17 12/31/17 12/31/17 14:52 18:10 22:01 WBC RBC Hgb Hct MCV MCH RDW Plt Count Lymph % (Auto) [place] % (Auto) Lymph # [place] # Seg Neutrophils % Seg Neuts % (Manual) Lymphocytes % (Manual) Seg Neutrophils # Seg Neutrophils # Man Lymphocytes # (Manual) PT INR POC ABG pH POC ABG pCO2 POC ABG pO2 Sodium Potassium Chloride Carbon Dioxide BUN Creatinine Glucose POC Glucose 202 H 189 H 150 H Lactic Acid Calcium Phosphorus Magnesium Total Bilirubin AST ALT Alkaline Phosphatase Troponin T C-Reactive Protein Total Protein Albumin Triglycerides LDL Cholesterol Direct HDL Cholesterol Urine WBC (Auto) Urine Creatinine Fluid Total Protein 01/01/18 01/01/18 01/01/18 01:54 04:52 04:52 WBC 13.1 H RBC 3.17 L Hgb 7.9 L Hct 23.8 L MCV 75 L MCH 25 L RDW 16.5 H Plt Count 121 L Lymph % (Auto) [place] % (Auto) Lymph # [place] # Seg Neutrophils % Seg Neuts % (Manual) Lymphocytes % (Manual) Seg Neutrophils # Seg Neutrophils # Man Lymphocytes # (Manual) PT INR POC ABG pH POC ABG pCO2 POC ABG pO2 Sodium 151 H Potassium Chloride 116.6 H Carbon Dioxide BUN 65 H Creatinine 2.8 H Glucose 172 H POC Glucose 208 H Lactic Acid Calcium 7.5 L Phosphorus Magnesium Total Bilirubin AST ALT Alkaline Phosphatase Troponin T C-Reactive Protein Total Protein Albumin Triglycerides LDL Cholesterol Direct HDL Cholesterol Urine WBC (Auto) Urine Creatinine Fluid Total Protein 01/01/18 01/01/18 01/01/18 05:20 10:16 14:09 WBC RBC Hgb Hct MCV MCH RDW Plt Count Lymph % (Auto) [place] % (Auto) Lymph # [place] # Seg Neutrophils % Seg Neuts % (Manual) Lymphocytes % (Manual) Seg Neutrophils # Seg Neutrophils # Man Lymphocytes # (Manual) PT INR POC ABG pH POC ABG pCO2 POC ABG pO2 Sodium Potassium Chloride Carbon Dioxide BUN Creatinine Glucose POC Glucose 202 H 231 H 322 H Lactic Acid Calcium Phosphorus Magnesium Total Bilirubin AST ALT Alkaline Phosphatase Troponin T C-Reactive Protein Total Protein Albumin Triglycerides LDL Cholesterol Direct HDL Cholesterol Urine WBC (Auto) Urine Creatinine Fluid Total Protein 01/01/18 01/02/18 01/02/18 18:15 00:55 05:51 WBC RBC Hgb Hct MCV MCH RDW Plt Count Lymph % (Auto) [place] % (Auto) Lymph # [place] # Seg Neutrophils % Seg Neuts % (Manual) Lymphocytes % (Manual) Seg Neutrophils # Seg Neutrophils # Man Lymphocytes # (Manual) PT INR POC ABG pH POC ABG pCO2 POC ABG pO2 Sodium Potassium Chloride Carbon Dioxide BUN Creatinine Glucose POC Glucose 258 H 284 H 265 H Lactic Acid Calcium Phosphorus Magnesium Total Bilirubin AST ALT Alkaline Phosphatase Troponin T C-Reactive Protein Total Protein Albumin Triglycerides LDL Cholesterol Direct HDL Cholesterol Urine WBC (Auto) Urine Creatinine Fluid Total Protein 01/02/18 Unknown WBC RBC Hgb Hct MCV MCH RDW Plt Count Lymph % (Auto) [place] % (Auto) Lymph # [place] # Seg Neutrophils % Seg Neuts % (Manual) Lymphocytes % (Manual) Seg Neutrophils # Seg Neutrophils # Man Lymphocytes # (Manual) PT INR POC ABG pH POC ABG pCO2 POC ABG pO2 Sodium Potassium 6.1 H* D Chloride 110.6 H Carbon Dioxide 20 L BUN 50 H Creatinine 2.1 H Glucose 246 H POC Glucose Lactic Acid Calcium 7.4 L Phosphorus Magnesium Total Bilirubin AST ALT Alkaline Phosphatase Troponin T C-Reactive Protein Total Protein Albumin Triglycerides LDL Cholesterol Direct HDL Cholesterol Urine WBC (Auto) Urine Creatinine Fluid Total Protein
[2018-01-02] MEDS: NORMODYNE IV PRN (21:15)
[2018-01-02] MEDS: Centrum Liq PO SCH (21:54)
[2018-01-03] MEDS: VANCOMYCIN PO PO SCH ×4 (00:37→18:46)
[2018-01-03] MEDS: NORMODYNE IV PRN ×2 (05:32→17:33)
[2018-01-03 06:33] LABS: Calcium 7.5 mg/dL (8.4-10.2)
--- NOTE | 2018-01-03 08:00 | Progress Note ---
Assessment and Plan 1. Acute kidney injury: Vasomotor / hemodynamic MARLENE in the setting of septic shock. Renal function continue to improve. 2. Septic shock: In the setting of Acute pyelonephritis and E.Coli bacteremia. Improved. 3. Left hydronephrosis. 4. HTN: Stop IV fluids. Add Amlodipine. 5. Electrolytes: Hyperkalemia, improved. Hypernatremia, improved. 6. DKA: Improved. 7. Acute Encephalopathy: Improving. 8. Thrombocytopenia: Improving. Subjective Date of service: 01/03/18 Principal diagnosis: septic shock Interval history: Patient was seen and examined at the bedside. Eating and drinking better. Objective - Vital Signs Vital signs: Vital Signs - 12hr 01/02/18 01/02/18 01/02/18 20:31 22:00 23:58 Temperature 98.4 F 98.2 F Pulse Rate 92 H 82 92 H Respiratory 20 20 Rate Blood Pressure 181/86 154/78 O2 Sat by Pulse 95 95 99 Oximetry 01/03/18 04:53 Temperature 98.1 F Pulse Rate 83 Respiratory 20 Rate Blood Pressure 175/90 O2 Sat by Pulse 96 Oximetry - General Appearance General appearance: well-developed, appears stated age, other (no distress) EENT: ATNC, PERRL, mucous membranes moist, hearing intact Neck: supple Respiratory: Present: Clear to Ascultation Cardiology: regular, S1S2, no murmurs Gastrointestinal: normoactive bowel sounds, no tenderness, obese Integumentary: warm and dry Neurologic: no focal deficit, no asterixis Musculoskeletal: other (1+ edema of both LEs and trace edema of both UEs) - Lab 01/01/18 04:52 01/03/18 05:50 Most recent lab results Calcium 7.5 mg/dL (8.4-10.2) L 01/03/18 05:50 Phosphorus 3.50 mg/dL (2.5-4.5) 12/29/17 10:02 Magnesium 2.30 mg/dL (1.7-2.3) 12/29/17 10:02 Urine Creatinine 65.1 mg/dL (0.1-20.0) H 12/23/17 15:13 Urine Sodium 26 mmol/L 12/23/17 15:13
[2018-01-03] MEDS: HumuLIN R SUB-Q SCH ×4 (09:38→22:20)
[2018-01-03] MEDS ORDERED: NORVASC PO SCH (11:10)
--- NOTE | 2018-01-03 11:16 | Progress Note ---
History Interval history: --Hyperkalemia; corrected --Uncontrolled hypertension; continue current antihypertensives Increase Norvasc to 10 mg by mouth daily, add hydralazine 10 mg 3 times a day --Sepsis secondary to UTI; pyelonephritis; bacteremia On meropenem, vancomycin per ID follow cultures --Septic shock(severe sepsis; due to ESBL Escherichia coli UTI ,pyelonephritis ,bacteremia, antibiotics per ID, resolved --DKA; resolved --Type 2 diabetes mellitus; Accu-Chek sliding scale coverage and ADA diet And insulin --Acute Kidney injury; closely monitor renal function and avoid nephrotoxins Nephrology following --Acute on chronic hypoxic respiratory failure; continue current management Oxygen titrated to O2 sats more than 90%, pulmonary following --DVT prophylaxis; heparin We'll closely monitor the patient and adjust management as needed DC planning. Case management Hospitalist Physical - Constitutional Vitals: Temp Pulse Resp BP Pulse Ox 98.1 F 90 20 170/87 97 01/03/18 09:05 01/03/18 09:05 01/03/18 09:05 01/03/18 09:05 01/03/18 09:05 General appearance: Present: no acute distress, well-nourished, obese - EENT Eyes: Present: PERRL, EOM intact - Neck Neck: Present: supple, normal ROM - Respiratory Respiratory effort: normal Respiratory: bilateral: diminished, negative: rales, rhonchi, wheezing - Cardiovascular Rhythm: regular Heart Sounds: Present: S1 & S2 - Extremities Extremities: no ischemia, No edema - Abdominal General gastrointestinal: soft, non-tender, non-distended, normal bowel sounds - Integumentary Integumentary: Present: clear, warm - Psychiatric Psychiatric: appropriate mood/affect, cooperative - Neurologic Neurologic: CNII-XII intact, moves all extremities Results - Labs CBC & Chem 7: 01/01/18 04:52 01/03/18 05:50 Labs: Laboratory Last Values WBC 13.1 K/mm3 (4.5-11.0) H 01/01/18 04:52 RBC 3.17 M/mm3 (3.65-5.03) L 01/01/18 04:52 Hgb 7.9 gm/dl (10.1-14.3) L 01/01/18 04:52 Hct 23.8 % (30.3-42.9) L 01/01/18 04:52 MCV 75 fl (79-97) L 01/01/18 04:52 MCH 25 pg (28-32) L 01/01/18 04:52 MCHC 33 % (30-34) 01/01/18 04:52 RDW 16.5 % (13.2-15.2) H 01/01/18 04:52 Plt Count 121 K/mm3 (140-440) L 01/01/18 04:52 Lymph % (Auto) 7.6 % (13.4-35.0) L 12/31/17 12:50 [place] % (Auto) 6.0 % (0.0-7.3) 12/31/17 12:50 Eos % (Auto) 1.0 % (0.0-4.3) 12/31/17 12:50 Baso % (Auto) 0.6 % (0.0-1.8) 12/31/17 12:50 Lymph # 1.0 K/mm3 (1.2-5.4) L 12/31/17 12:50 [place] # 0.8 K/mm3 (0.0-0.8) 12/31/17 12:50 Eos # 0.1 K/mm3 (0.0-0.4) 12/31/17 12:50 Baso # 0.1 K/mm3 (0.0-0.1) 12/31/17 12:50 Add Manual Diff Complete 12/25/17 05:55 Total Counted 100 12/25/17 05:55 Seg Neutrophils % 84.8 % (40.0-70.0) H 12/31/17 12:50 Seg Neuts % (Manual) 85.0 % (40.0-70.0) H 12/25/17 05:55 Band Neutrophils % 6.0 % 12/25/17 05:55 Lymphocytes % (Manual) 3.0 % (13.4-35.0) L 12/25/17 05:55 Reactive Lymphs % (Man) 1.0 % 12/25/17 05:55 Monocytes % (Manual) 5.0 % (0.0-7.3) 12/25/17 05:55 Eosinophils % (Manual) 0 % (0.0-4.3) 12/25/17 05:55 Basophils % (Manual) 0 % (0.0-1.8) 12/25/17 05:55 Metamyelocytes % 0 % 12/25/17 05:55 Myelocytes % 0 % 12/25/17 05:55 Promyelocytes % 0 % 12/25/17 05:55 Blast Cells % 0 % 12/25/17 05:55 Nucleated RBC % Not Reportable 12/25/17 05:55 Seg Neutrophils # 11.2 K/mm3 (1.8-7.7) H 12/31/17 12:50 Seg Neutrophils # Man 11.6 K/mm3 (1.8-7.7) H 12/25/17 05:55 Band Neutrophils # 0.8 K/mm3 12/25/17 05:55 Lymphocytes # (Manual) 0.4 K/mm3 (1.2-5.4) L 12/25/17 05:55 Abs React Lymphs (Man) 0.1 K/mm3 12/25/17 05:55 Monocytes # (Manual) 0.7 K/mm3 (0.0-0.8) 12/25/17 05:55 Eosinophils # (Manual) 0.0 K/mm3 (0.0-0.4) 12/25/17 05:55 Basophils # (Manual) 0.0 K/mm3 (0.0-0.1) 12/25/17 05:55 Metamyelocytes # 0.0 K/mm3 12/25/17 05:55 Myelocytes # 0.0 K/mm3 12/25/17 05:55 Promyelocytes # 0.0 K/mm3 12/25/17 05:55 Blast Cells # 0.0 K/mm3 12/25/17 05:55 WBC Morphology Not Reportable 12/25/17 05:55 Hypersegmented Neuts Not Reportable 12/25/17 05:55 Hyposegmented Neuts Not Reportable 12/25/17 05:55 Hypogranular Neuts Not Reportable 12/25/17 05:55 Smudge Cells Not Reportable 12/25/17 05:55 Toxic Granulation Not Reportable 12/25/17 05:55 Toxic Vacuolation Not Reportable 12/25/17 05:55 Dohle Bodies Not Reportable 12/25/17 05:55 Pelger-Huet Anomaly Not Reportable 12/25/17 05:55 Pooja Rods Not Reportable 12/25/17 05:55 Platelet Estimate Consistent w auto 12/25/17 05:55 Clumped Platelets Not Reportable 12/25/17 05:55 Plt Clumps, EDTA Not Reportable 12/25/17 05:55 Large Platelets Not Reportable 12/25/17 05:55 Giant Platelets Not Reportable 12/25/17 05:55 Platelet Satelliting Not Reportable 12/25/17 05:55 Plt Morphology Comment Not Reportable 12/25/17 05:55 RBC Morphology Not Reportable 12/25/17 05:55 Dimorphic RBCs Not Reportable 12/25/17 05:55 Polychromasia Not Reportable 12/25/17 05:55 Hypochromasia 1+ 12/25/17 05:55 Poikilocytosis Not Reportable 12/25/17 05:55 Anisocytosis 1+ 12/25/17 05:55 Microcytosis 1+ 12/25/17 05:55 Macrocytosis Not Reportable 12/25/17 05:55 Spherocytes Not Reportable 12/25/17 05:55 Pappenheimer Bodies Not Reportable 12/25/17 05:55 Sickle Cells Not Reportable 12/25/17 05:55 Target Cells Not Reportable 12/25/17 05:55 Tear Drop Cells Not Reportable 12/25/17 05:55 Ovalocytes Not Reportable 12/25/17 05:55 Helmet Cells Not Reportable 12/25/17 05:55 [place] Bodies Not Reportable 12/25/17 05:55 [place] Rings Not Reportable 12/25/17 05:55 [place] Cells Not Reportable 12/25/17 05:55 Bite Cells Not Reportable 12/25/17 05:55 Crenated Cell Not Reportable 12/25/17 05:55 Elliptocytes Not Reportable 12/25/17 05:55 Acanthocytes (Spur) Not Reportable 12/25/17 05:55 Rouleaux Not Reportable 12/25/17 05:55 Hemoglobin C Crystals Not Reportable 12/25/17 05:55 Schistocytes Not Reportable 12/25/17 05:55 Malaria parasites Not Reportable 12/25/17 05:55 López Bodies Not Reportable 12/25/17 05:55 Hem Pathologist Commnt No 12/25/17 05:55 PT 16.4 Sec. (12.2-14.9) H 12/28/17 13:16 INR 1.25 (0.87-1.13) H 12/28/17 13:16 Heparin Anti-Xa, Unfract Negative (Negative) 12/23/17 10:15 POC ABG pH 7.599 (7.35-7.45) H 12/27/17 04:07 POC ABG pCO2 42.4 (35-45) 12/27/17 04:07 POC ABG pO2 108 (80-105) H 12/27/17 04:07 POC ABG HCO3 41.6 12/27/17 04:07 POC ABG Total CO2 43 12/27/17 04:07 POC ABG O2 Sat 99 12/27/17 04:07 POC ABG Base Excess 20 12/27/17 04:07 VBG pH 7.320 (7.320-7.420) 12/20/17 23:35 FiO2 35 % 12/27/17 04:07 Sodium 136 mmol/L (137-145) L 01/03/18 05:50 Potassium 4.4 mmol/L (3.6-5.0) 01/03/18 05:50 Chloride 104.4 mmol/L (98-107) 01/03/18 05:50 Carbon Dioxide 20 mmol/L (22-30) L 01/03/18 05:50 Anion Gap 16 mmol/L 01/03/18 05:50 BUN 41 mg/dL (7-17) H 01/03/18 05:50 Creatinine 1.8 mg/dL (0.7-1.2) H 01/03/18 05:50 Estimated GFR 30 ml/min 01/03/18 05:50 BUN/Creatinine Ratio 23 % 01/03/18 05:50 Glucose 137 mg/dL (65-100) H 01/03/18 05:50 POC Glucose 151 (70-105) H 01/03/18 06:08 Lactic Acid 2.10 mmol/L (0.7-2.0) H* 12/25/17 09:41 Calcium 7.5 mg/dL (8.4-10.2) L 01/03/18 05:50 Phosphorus 3.50 mg/dL (2.5-4.5) 12/29/17 10:02 Magnesium 2.30 mg/dL (1.7-2.3) 12/29/17 10:02 Total Bilirubin 1.90 mg/dL (0.1-1.2) H 12/31/17 12:50 AST 85 units/L (5-40) H 12/31/17 12:50 ALT 50 units/L (7-56) 12/31/17 12:50 Alkaline Phosphatase 596 units/L (35-129) H 12/31/17 12:50 Ammonia 28.0 umol/L (25-60) 12/25/17 09:41 Total Creatine Kinase 117 units/L (30-135) 12/21/17 13:27 CK-MB (CK-2) 3.9 ng/mL (0.0-4.0) 12/21/17 13:27 CK-MB (CK-2) Rel Index 3.3 (0-4) 12/21/17 13:27 Troponin T 0.087 ng/mL (0.00-0.029) H 12/21/17 13:27 C-Reactive Protein 19.90 mg/dL (0.00-1.30) H 12/25/17 05:55 Total Protein 5.6 g/dL (6.3-8.2) L 12/31/17 12:50 Albumin 1.9 g/dL (3.9-5) L 12/31/17 12:50 Albumin/Globulin Ratio 0.5 % 12/31/17 12:50 Triglycerides 202 mg/dL (2-149) H 12/21/17 13:27 Cholesterol 57 mg/dL (50-199) 12/21/17 13:27 LDL Cholesterol Direct 6 mg/dL (50-130) L 12/21/17 13:27 HDL Cholesterol 10 mg/dL (40-59) L 12/21/17 13:27 Cholesterol/HDL Ratio 5.70 % 12/21/17 13:27 Serotonin Release Assay See scanned result 12/23/17 10:15 Urine Color Yellow (Yellow) 12/21/17 01:50 Urine Turbidity Clear (Clear) 12/21/17 01:50 Urine pH 5.0 (5.0-7.0) 12/21/17 01:50 Ur Specific [place] 1.015 (1.003-1.030) 12/21/17 01:50 Urine Protein <15 mg/dl mg/dL (Negative) 12/21/17 01:50 Urine Glucose (UA) >=500 mg/dL (Negative) 12/21/17 01:50 Urine Ketones Neg mg/dL (Negative) 12/21/17 01:50 Urine Blood Neg (Negative) 12/21/17 01:50 Urine Nitrite Neg (Negative) 12/21/17 01:50 Urine Bilirubin Neg (Negative) 12/21/17 01:50 Urine Urobilinogen < 2.0 mg/dL (<2.0) 12/21/17 01:50 Ur Leukocyte Esterase Sm (Negative) 12/21/17 01:50 Urine WBC (Auto) 38.0 /HPF (0.0-6.0) H 12/21/17 01:50 Urine RBC (Auto) 3.0 /HPF (0.0-6.0) 12/21/17 01:50 U Epithel Cells (Auto) 3.0 /HPF (0-13.0) 12/21/17 01:50 Urine Bacteria (Auto) 2+ /HPF (Negative) 12/21/17 01:50 Urine Creatinine 65.1 mg/dL (0.1-20.0) H 12/23/17 15:13 Urine Sodium 26 mmol/L 12/23/17 15:13 Fluid Type Pleural 12/29/17 15:45 Fluid Color Dark yellow 12/29/17 15:45 Fluid Appearance Clear 12/29/17 15:45 Fluid WBC 93 /mm3 12/29/17 15:45 Fluid RBC 125 /mm3 12/29/17 15:45 Fluid Seg Neutrophils 42.0 % 12/29/17 15:45 Fluid Lymphocytes 5.0 % 12/29/17 15:45 Fluid Reactive Lymphs 0 % 12/29/17 15:45 Fluid Monocytes 53.0 % 12/29/17 15:45 Fluid Eosinophils 0 % 12/29/17 15:45 Fluid Basophils 0 % 12/29/17 15:45 Fluid Total Protein < 3.0 (15.0-45.0) L 12/29/17 15:45 Fluid LDH 73 12/29/17 15:45 Fluid Cholesterol < 15 12/29/17 15:45 Fluid Comment Diff performed 12/29/17 15:45 Random Vancomycin 15.4 ug/mL (0-40.0) 12/22/17 Unknown Heparin-induced Plt Ab Negative (Negative) 12/23/17 10:15 UF Heparin High Dose 0 % Release 12/23/17 10:15 [place] UFH Low Dose 0.1 0 % Release 12/23/17 10:15 [place] UFH Low Dose 0.5 0 % Release 12/23/17 10:15 C. difficile Toxin A&B Negative (Negative) 12/21/17 04:52 Hepatitis A IgM Ab Non-reactive (NonReactive) 12/21/17 08:44 Hep Bs Antigen Non-reactive (Negative) 12/21/17 08:44 Hep B Core IgM Ab Non-reactive (NonReactive) 12/21/17 08:44 Hepatitis C Antibody Non-reactive (NonReactive) 12/21/17 08:44
[2018-01-03] MEDS: MERREM 1,000 MG in NACL 0.9% 100 ML IV SCH (12:07)
[2018-01-03] MEDS: SODIUM CHLORIDE FLUSH SYRINGE 10 ML IV SCH ×2 (12:11→22:19)
[2018-01-03] MEDS: Centrum Liq PO SCH (12:12)
[2018-01-03] MEDS: VITAMIN B-1 PO SCH (12:13)
[2018-01-03] MEDS: FOLVITE PO SCH (12:13)
[2018-01-03] MEDS: PEPCID PO SCH ×2 (12:14→22:19)
[2018-01-03] MEDS: NORVASC PO SCH (12:19)
--- NOTE | 2018-01-03 15:48 | Progress Note ---
Assessment and Plan Severe sepsis with shock. Acute Hypoxemic Resp Failure Left Pleural Effusion (Transudate) MARLENE Hyperglycemia and mild diabetic ketoacidosis. Possible urinary tract infection. E. Coli Bacteremia Nausea and vomiting. Diarrhea. Metabolic acidosis. Hypophosphatemia. Hypomagnesemia. Acute kidney injury, possibly on chronic. Thrombocytopenia - continue to wean oxygen to keep sats > 90% - prn CXR re: Effusion - prn bronchodilators - continue antibiotics per ID recs (on levaquin) - continue to monitor liver enzymes - nephrology to see in consult - suspicion for scables and placed in contact isolation - continue long acting insulin and SSI - continue GI & VTE prophylaxis - continue other care per attending / other consultants - replace electrolytes .. 25' Subjective Date of service: 01/03/18 Principal diagnosis: septic shock Interval history: Patient is seen today for: Sever Sepsis with septic shock; DKA; UTI Seen and examined at bedside; 24hour events reviewed; nursing and respiratory care staff consulted; no adverse overnight events reported to me; sitting in chair; very weak; denies chest pains or palpitations; denies fevers or chills; remains on supplemental oxygen; No cough or expectoration Objective Vital Signs - 12hr 01/03/18 01/03/18 01/03/18 04:53 09:05 12:19 Temperature 98.1 F 98.1 F Pulse Rate 83 90 90 Respiratory 20 20 Rate Blood Pressure 175/90 170/87 170/87 O2 Sat by Pulse 96 97 Oximetry 01/03/18 12:43 Temperature 97.5 F L Pulse Rate 89 Respiratory 20 Rate Blood Pressure 174/93 O2 Sat by Pulse 97 Oximetry Constitutional: appears uncomfortable, other (middle aged female; looks chronically ill, normocephalic and atraumatic) Eyes: non-icteric ENT: oropharynx moist, other (mallampatti II) Neck: supple, no lymphadenopathy, no JVD, other (no thyromegaly) Effort: mildly labored Ascultation: Bilateral: diminished breath sounds, rhonchi Percussion: Bilateral: not dull Cardiovascular: regular rate and rhythm, other (No R/M) Gastrointestinal: normoactive bowel sounds, soft, non-tender, non-distended, other (No palpable HSM) Integumentary: rash Extremities: no cyanosis, no edema, pink and warm, pulses normal, no ischemia or petechiae Neurologic: non-focal exam, pupils equal and round, CN II-XII normal Psychiatric: mood appropriate, affect normal CBC and BMP: 01/05/18 06:19 01/05/18 06:19 ABG, PT/INR, D-dimer: ABG POC ABG pH 7.599 (7.35-7.45) H 12/27/17 04:07 POC ABG pCO2 42.4 (35-45) 12/27/17 04:07 POC ABG pO2 108 (80-105) H 12/27/17 04:07 POC ABG HCO3 41.6 12/27/17 04:07 POC ABG Total CO2 43 12/27/17 04:07 POC ABG O2 Sat 99 12/27/17 04:07 PT/INR, D-dimer PT 16.4 Sec. (12.2-14.9) H 12/28/17 13:16 INR 1.25 (0.87-1.13) H 12/28/17 13:16 Abnormal lab findings: Abnormal Labs 12/20/17 12/20/17 12/20/17 23:35 23:35 23:35 WBC RBC Hgb Hct MCV 78 L MCH 26 L RDW 15.7 H Plt Count 77 L Lymph % (Auto) [place] % (Auto) Lymph # [place] # Seg Neutrophils % Seg Neuts % (Manual) 76.0 H Lymphocytes % (Manual) 6.0 L Seg Neutrophils # Seg Neutrophils # Man 8.2 H Lymphocytes # (Manual) 0.6 L PT 18.5 H INR 1.45 H POC ABG pH POC ABG pCO2 POC ABG pO2 Sodium 130 L Potassium 3.5 L Chloride 92.3 L Carbon Dioxide 17 L BUN 27 H Creatinine 2.2 H Glucose 535 H* POC Glucose Lactic Acid Calcium 7.0 L Phosphorus Magnesium Total Bilirubin AST ALT Alkaline Phosphatase 173 H Troponin T C-Reactive Protein Total Protein 5.1 L Albumin 2.6 L Triglycerides LDL Cholesterol Direct HDL Cholesterol Urine WBC (Auto) Urine Creatinine Fluid Total Protein 12/20/17 12/21/17 12/21/17 23:35 01:11 01:11 WBC RBC Hgb Hct MCV MCH RDW Plt Count Lymph % (Auto) [place] % (Auto) Lymph # [place] # Seg Neutrophils % Seg Neuts % (Manual) Lymphocytes % (Manual) Seg Neutrophils # Seg Neutrophils # Man Lymphocytes # (Manual) PT INR POC ABG pH POC ABG pCO2 POC ABG pO2 Sodium Potassium Chloride Carbon Dioxide BUN Creatinine Glucose POC Glucose Lactic Acid 8.30 H* 8.10 H* Calcium Phosphorus 1.90 L Magnesium 1.30 L Total Bilirubin AST ALT Alkaline Phosphatase Troponin T C-Reactive Protein Total Protein Albumin Triglycerides LDL Cholesterol Direct HDL Cholesterol Urine WBC (Auto) Urine Creatinine Fluid Total Protein 12/21/17 12/21/17 12/21/17 01:11 01:50 02:09 WBC RBC Hgb Hct MCV MCH RDW Plt Count Lymph % (Auto) [place] % (Auto) Lymph # [place] # Seg Neutrophils % Seg Neuts % (Manual) Lymphocytes % (Manual) Seg Neutrophils # Seg Neutrophils # Man Lymphocytes # (Manual) PT INR POC ABG pH POC ABG pCO2 POC ABG pO2 Sodium 133 L Potassium 3.3 L Chloride 97.9 L Carbon Dioxide 15 L BUN 26 H Creatinine 2.1 H Glucose 504 H* POC Glucose 391 H Lactic Acid Calcium 6.4 L Phosphorus Magnesium Total Bilirubin AST ALT Alkaline Phosphatase Troponin T C-Reactive Protein Total Protein Albumin Triglycerides LDL Cholesterol Direct HDL Cholesterol Urine WBC (Auto) 38.0 H Urine Creatinine Fluid Total Protein 12/21/17 12/21/17 12/21/17 03:10 03:26 05:15 WBC RBC Hgb Hct MCV MCH RDW Plt Count Lymph % (Auto) [place] % (Auto) Lymph # [place] # Seg Neutrophils % Seg Neuts % (Manual) Lymphocytes % (Manual) Seg Neutrophils # Seg Neutrophils # Man Lymphocytes # (Manual) PT INR POC ABG pH POC ABG pCO2 POC ABG pO2 Sodium 135 L Potassium 3.3 L Chloride Carbon Dioxide 14 L BUN 25 H Creatinine 1.9 H Glucose 443 H POC Glucose 389 H 407 H Lactic Acid Calcium 6.0 L Phosphorus Magnesium Total Bilirubin AST ALT Alkaline Phosphatase Troponin T C-Reactive Protein Total Protein Albumin Triglycerides LDL Cholesterol Direct HDL Cholesterol Urine WBC (Auto) Urine Creatinine Fluid Total Protein 12/21/17 12/21/17 12/21/17 06:00 06:00 06:09 WBC RBC Hgb Hct MCV MCH RDW Plt Count Lymph % (Auto) [place] % (Auto) Lymph # [place] # Seg Neutrophils % Seg Neuts % (Manual) Lymphocytes % (Manual) Seg Neutrophils # Seg Neutrophils # Man Lymphocytes # (Manual) PT INR POC ABG pH POC ABG pCO2 POC ABG pO2 Sodium Potassium 3.4 L Chloride Carbon Dioxide 12 L BUN 28 H Creatinine 1.9 H Glucose 283 H POC Glucose 326 H Lactic Acid 7.90 H* Calcium 6.0 L Phosphorus Magnesium Total Bilirubin AST ALT Alkaline Phosphatase Troponin T C-Reactive Protein Total Protein Albumin Triglycerides LDL Cholesterol Direct HDL Cholesterol Urine WBC (Auto) Urine Creatinine Fluid Total Protein 12/21/17 12/21/17 12/21/17 07:23 08:16 08:44 WBC RBC Hgb Hct MCV MCH RDW Plt Count Lymph % (Auto) [place] % (Auto) Lymph # [place] # Seg Neutrophils % Seg Neuts % (Manual) Lymphocytes % (Manual) Seg Neutrophils # Seg Neutrophils # Man Lymphocytes # (Manual) PT INR POC ABG pH POC ABG pCO2 POC ABG pO2 Sodium Potassium 3.3 L Chloride 107.8 H Carbon Dioxide 14 L BUN 29 H Creatinine 2.0 H Glucose 140 H POC Glucose 267 H 257 H Lactic Acid Calcium 6.2 L Phosphorus Magnesium Total Bilirubin AST ALT Alkaline Phosphatase Troponin T C-Reactive Protein Total Protein Albumin Triglycerides LDL Cholesterol Direct HDL Cholesterol Urine WBC (Auto) Urine Creatinine Fluid Total Protein 12/21/17 12/21/17 12/21/17 08:44 08:44 09:02 WBC RBC Hgb Hct MCV MCH RDW Plt Count Lymph % (Auto) [place] % (Auto) Lymph # [place] # Seg Neutrophils % Seg Neuts % (Manual) Lymphocytes % (Manual) Seg Neutrophils # Seg Neutrophils # Man Lymphocytes # (Manual) PT INR POC ABG pH POC ABG pCO2 POC ABG pO2 Sodium Potassium Chloride Carbon Dioxide BUN Creatinine Glucose POC Glucose 211 H Lactic Acid 6.40 H* Calcium Phosphorus Magnesium Total Bilirubin AST ALT Alkaline Phosphatase Troponin T C-Reactive Protein 27.10 H Total Protein Albumin Triglycerides LDL Cholesterol Direct HDL Cholesterol Urine WBC (Auto) Urine Creatinine Fluid Total Protein 12/21/17 12/21/17 12/21/17 09:35 10:27 11:57 WBC RBC Hgb Hct MCV MCH RDW Plt Count Lymph % (Auto) [place] % (Auto) Lymph # [place] # Seg Neutrophils % Seg Neuts % (Manual) Lymphocytes % (Manual) Seg Neutrophils # Seg Neutrophils # Man Lymphocytes # (Manual) PT INR POC ABG pH POC ABG pCO2 POC ABG pO2 Sodium Potassium Chloride Carbon Dioxide BUN Creatinine Glucose POC Glucose 182 H 142 H 134 H Lactic Acid Calcium Phosphorus Magnesium Total Bilirubin AST ALT Alkaline Phosphatase Troponin T C-Reactive Protein Total Protein Albumin Triglycerides LDL Cholesterol Direct HDL Cholesterol Urine WBC (Auto) Urine Creatinine Fluid Total Protein 12/21/17 12/21/17 12/21/17 13:27 15:20 17:39 WBC RBC Hgb Hct MCV MCH RDW Plt Count Lymph % (Auto) [place] % (Auto) Lymph # [place] # Seg Neutrophils % Seg Neuts % (Manual) Lymphocytes % (Manual) Seg Neutrophils # Seg Neutrophils # Man Lymphocytes # (Manual) PT INR POC ABG pH POC ABG pCO2 POC ABG pO2 Sodium Potassium Chloride Carbon Dioxide BUN Creatinine Glucose POC Glucose 161 H 189 H Lactic Acid Calcium Phosphorus Magnesium Total Bilirubin AST ALT Alkaline Phosphatase Troponin T 0.087 H C-Reactive Protein Total Protein Albumin Triglycerides 202 H LDL Cholesterol Direct 6 L HDL Cholesterol 10 L Urine WBC (Auto) Urine Creatinine Fluid Total Protein 12/21/17 12/21/17 12/21/17 17:47 19:32 20:56 WBC RBC Hgb Hct MCV MCH RDW Plt Count Lymph % (Auto) [place] % (Auto) Lymph # [place] # Seg Neutrophils % Seg Neuts % (Manual) Lymphocytes % (Manual) Seg Neutrophils # Seg Neutrophils # Man Lymphocytes # (Manual) PT INR POC ABG pH POC ABG pCO2 POC ABG pO2 Sodium Potassium Chloride 107.2 H Carbon Dioxide 14 L BUN 32 H Creatinine 2.4 H Glucose 171 H POC Glucose 160 H 136 H Lactic Acid Calcium 6.6 L Phosphorus Magnesium Total Bilirubin AST ALT Alkaline Phosphatase Troponin T C-Reactive Protein Total Protein Albumin Triglycerides LDL Cholesterol Direct HDL Cholesterol Urine WBC (Auto) Urine Creatinine Fluid Total Protein 12/21/17 12/22/17 12/22/17 21:12 00:29 03:08 WBC RBC Hgb Hct MCV MCH RDW Plt Count Lymph % (Auto) [place] % (Auto) Lymph # [place] # Seg Neutrophils % Seg Neuts % (Manual) Lymphocytes % (Manual) Seg Neutrophils # Seg Neutrophils # Man Lymphocytes # (Manual) PT INR POC ABG pH 7.152 L 7.241 L POC ABG pCO2 28.1 L POC ABG pO2 62 L 113 H Sodium Potassium Chloride Carbon Dioxide BUN Creatinine Glucose POC Glucose 109 H Lactic Acid Calcium Phosphorus Magnesium Total Bilirubin AST ALT Alkaline Phosphatase Troponin T C-Reactive Protein Total Protein Albumin Triglycerides LDL Cholesterol Direct HDL Cholesterol Urine WBC (Auto) Urine Creatinine Fluid Total Protein 12/22/17 12/22/17 12/22/17 04:29 04:30 04:30 WBC 21.9 H RBC Hgb Hct MCV 77 L MCH 25 L RDW 16.6 H Plt Count 57 L Lymph % (Auto) [place] % (Auto) Lymph # [place] # Seg Neutrophils % Seg Neuts % (Manual) Lymphocytes % (Manual) Seg Neutrophils # Seg Neutrophils # Man Lymphocytes # (Manual) PT INR POC ABG pH POC ABG pCO2 POC ABG pO2 Sodium Potassium Chloride Carbon Dioxide 14 L BUN 37 H Creatinine 2.7 H Glucose 145 H POC Glucose 139 H Lactic Acid Calcium 6.4 L Phosphorus Magnesium Total Bilirubin AST ALT Alkaline Phosphatase Troponin T C-Reactive Protein Total Protein Albumin Triglycerides LDL Cholesterol Direct HDL Cholesterol Urine WBC (Auto) Urine Creatinine Fluid Total Protein 12/22/17 12/22/17 12/22/17 04:30 05:24 05:54 WBC RBC Hgb Hct MCV MCH RDW Plt Count Lymph % (Auto) [place] % (Auto) Lymph # [place] # Seg Neutrophils % Seg Neuts % (Manual) Lymphocytes % (Manual) Seg Neutrophils # Seg Neutrophils # Man Lymphocytes # (Manual) PT INR POC ABG pH POC ABG pCO2 POC ABG pO2 Sodium Potassium Chloride Carbon Dioxide BUN Creatinine Glucose POC Glucose 144 H 145 H Lactic Acid 3.30 H* Calcium Phosphorus Magnesium Total Bilirubin AST ALT Alkaline Phosphatase Troponin T C-Reactive Protein Total Protein Albumin Triglycerides LDL Cholesterol Direct HDL Cholesterol Urine WBC (Auto) Urine Creatinine Fluid Total Protein 12/22/17 12/22/17 12/22/17 07:56 07:56 10:09 WBC RBC Hgb Hct MCV MCH RDW Plt Count Lymph % (Auto) [place] % (Auto) Lymph # [place] # Seg Neutrophils % Seg Neuts % (Manual) Lymphocytes % (Manual) Seg Neutrophils # Seg Neutrophils # Man Lymphocytes # (Manual) PT INR POC ABG pH 7.180 L POC ABG pCO2 POC ABG pO2 117 H Sodium Potassium Chloride Carbon Dioxide 14 L BUN 39 H Creatinine 2.9 H Glucose 174 H POC Glucose Lactic Acid 3.00 H* Calcium 6.7 L Phosphorus Magnesium Total Bilirubin AST ALT Alkaline Phosphatase Troponin T C-Reactive Protein Total Protein Albumin Triglycerides LDL Cholesterol Direct HDL Cholesterol Urine WBC (Auto) Urine Creatinine Fluid Total Protein 12/22/17 12/22/17 12/22/17 10:12 12:19 14:23 WBC RBC Hgb Hct MCV MCH RDW Plt Count Lymph % (Auto) [place] % (Auto) Lymph # [place] # Seg Neutrophils % Seg Neuts % (Manual) Lymphocytes % (Manual) Seg Neutrophils # Seg Neutrophils # Man Lymphocytes # (Manual) PT INR POC ABG pH 7.241 L 7.285 L POC ABG pCO2 33.9 L 29.9 L POC ABG pO2 45 L 117 H Sodium Potassium Chloride Carbon Dioxide BUN Creatinine Glucose POC Glucose 185 H Lactic Acid Calcium Phosphorus Magnesium Total Bilirubin AST ALT Alkaline Phosphatase Troponin T C-Reactive Protein Total Protein Albumin Triglycerides LDL Cholesterol Direct HDL Cholesterol Urine WBC (Auto) Urine Creatinine Fluid Total Protein 12/22/17 12/22/17 12/22/17 14:27 17:22 19:58 WBC RBC Hgb Hct MCV MCH RDW Plt Count Lymph % (Auto) [place] % (Auto) Lymph # [place] # Seg Neutrophils % Seg Neuts % (Manual) Lymphocytes % (Manual) Seg Neutrophils # Seg Neutrophils # Man Lymphocytes # (Manual) PT INR POC ABG pH 7.338 L POC ABG pCO2 27.6 L POC ABG pO2 167 H Sodium Potassium Chloride Carbon Dioxide BUN Creatinine Glucose POC Glucose 220 H 197 H Lactic Acid Calcium Phosphorus Magnesium Total Bilirubin AST ALT Alkaline Phosphatase Troponin T C-Reactive Protein Total Protein Albumin Triglycerides LDL Cholesterol Direct HDL Cholesterol Urine WBC (Auto) Urine Creatinine Fluid Total Protein 12/22/17 12/23/17 12/23/17 21:18 05:30 05:30 WBC 14.5 H RBC Hgb Hct MCV 75 L MCH 26 L RDW 16.7 H Plt Count 26 L Lymph % (Auto) [place] % (Auto) Lymph # [place] # Seg Neutrophils % Seg Neuts % (Manual) Lymphocytes % (Manual) Seg Neutrophils # Seg Neutrophils # Man Lymphocytes # (Manual) PT INR POC ABG pH POC ABG pCO2 POC ABG pO2 Sodium Potassium Chloride Carbon Dioxide 15 L BUN 49 H Creatinine 3.5 H Glucose 123 H POC Glucose 189 H Lactic Acid Calcium 6.7 L Phosphorus Magnesium Total Bilirubin 3.60 H AST 93 H ALT 58 H Alkaline Phosphatase Troponin T C-Reactive Protein Total Protein 4.5 L Albumin 2.0 L Triglycerides LDL Cholesterol Direct HDL Cholesterol Urine WBC (Auto) Urine Creatinine Fluid Total Protein 12/23/17 12/23/17 12/23/17 05:30 12:31 15:13 WBC RBC Hgb Hct MCV MCH RDW Plt Count Lymph % (Auto) [place] % (Auto) Lymph # [place] # Seg Neutrophils % Seg Neuts % (Manual) Lymphocytes % (Manual) Seg Neutrophils # Seg Neutrophils # Man Lymphocytes # (Manual) PT INR POC ABG pH POC ABG pCO2 POC ABG pO2 Sodium Potassium Chloride Carbon Dioxide BUN Creatinine Glucose POC Glucose 141 H Lactic Acid Calcium Phosphorus Magnesium Total Bilirubin AST ALT Alkaline Phosphatase Troponin T C-Reactive Protein 38.70 H Total Protein Albumin Triglycerides LDL Cholesterol Direct HDL Cholesterol Urine WBC (Auto) Urine Creatinine 65.1 H Fluid Total Protein 12/23/17 12/24/17 12/24/17 18:53 00:13 05:15 WBC 14.7 H RBC Hgb Hct MCV 76 L MCH 25 L RDW 16.6 H Plt Count 20 L Lymph % (Auto) [place] % (Auto) Lymph # [place] # Seg Neutrophils % Seg Neuts % (Manual) Lymphocytes % (Manual) Seg Neutrophils # Seg Neutrophils # Man Lymphocytes # (Manual) PT INR POC ABG pH POC ABG pCO2 POC ABG pO2 Sodium Potassium Chloride Carbon Dioxide BUN Creatinine Glucose POC Glucose 205 H 207 H Lactic Acid Calcium Phosphorus Magnesium Total Bilirubin AST ALT Alkaline Phosphatase Troponin T C-Reactive Protein Total Protein Albumin Triglycerides LDL Cholesterol Direct HDL Cholesterol Urine WBC (Auto) Urine Creatinine Fluid Total Protein 12/24/17 12/24/17 12/24/17 05:15 05:51 08:31 WBC RBC Hgb Hct MCV MCH RDW Plt Count Lymph % (Auto) [place] % (Auto) Lymph # [place] # Seg Neutrophils % Seg Neuts % (Manual) Lymphocytes % (Manual) Seg Neutrophils # Seg Neutrophils # Man Lymphocytes # (Manual) PT INR POC ABG pH POC ABG pCO2 POC ABG pO2 Sodium Potassium Chloride 107.2 H Carbon Dioxide 19 L BUN 67 H Creatinine 4.0 H Glucose 150 H POC Glucose 176 H 251 H Lactic Acid Calcium 7.2 L Phosphorus Magnesium Total Bilirubin 5.60 H AST 47 H ALT Alkaline Phosphatase Troponin T C-Reactive Protein Total Protein 4.3 L Albumin 1.9 L Triglycerides LDL Cholesterol Direct HDL Cholesterol Urine WBC (Auto) Urine Creatinine Fluid Total Protein 12/24/17 12/24/17 12/24/17 11:53 17:19 21:16 WBC RBC Hgb Hct MCV MCH RDW Plt Count Lymph % (Auto) [place] % (Auto) Lymph # [place] # Seg Neutrophils % Seg Neuts % (Manual) Lymphocytes % (Manual) Seg Neutrophils # Seg Neutrophils # Man Lymphocytes # (Manual) PT INR POC ABG pH POC ABG pCO2 POC ABG pO2 Sodium Potassium Chloride Carbon Dioxide BUN Creatinine Glucose POC Glucose 274 H 302 H 345 H Lactic Acid Calcium Phosphorus Magnesium Total Bilirubin AST ALT Alkaline Phosphatase Troponin T C-Reactive Protein Total Protein Albumin Triglycerides LDL Cholesterol Direct HDL Cholesterol Urine WBC (Auto) Urine Creatinine Fluid Total Protein 12/25/17 12/25/17 12/25/17 05:55 05:55 05:55 WBC 13.7 H RBC Hgb Hct 30.2 L MCV 75 L MCH 25 L RDW 17.2 H Plt Count 24 L Lymph % (Auto) [place] % (Auto) Lymph # [place] # Seg Neutrophils % Seg Neuts % (Manual) 85.0 H Lymphocytes % (Manual) 3.0 L Seg Neutrophils # Seg Neutrophils # Man 11.6 H Lymphocytes # (Manual) 0.4 L PT INR POC ABG pH POC ABG pCO2 POC ABG pO2 Sodium Potassium 3.5 L Chloride Carbon Dioxide BUN 81 H Creatinine 3.9 H Glucose 471 H POC Glucose Lactic Acid Calcium 7.5 L Phosphorus Magnesium Total Bilirubin 7.70 H AST ALT Alkaline Phosphatase 234 H Troponin T C-Reactive Protein 19.90 H Total Protein 4.9 L Albumin 1.6 L Triglycerides LDL Cholesterol Direct HDL Cholesterol Urine WBC (Auto) Urine Creatinine Fluid Total Protein 12/25/17 12/25/17 12/25/17 08:21 09:41 12:14 WBC RBC Hgb Hct MCV MCH RDW Plt Count Lymph % (Auto) [place] % (Auto) Lymph # [place] # Seg Neutrophils % Seg Neuts % (Manual) Lymphocytes % (Manual) Seg Neutrophils # Seg Neutrophils # Man Lymphocytes # (Manual) PT INR POC ABG pH POC ABG pCO2 POC ABG pO2 Sodium Potassium Chloride Carbon Dioxide BUN Creatinine Glucose POC Glucose 468 H 405 H Lactic Acid 2.10 H* Calcium Phosphorus Magnesium Total Bilirubin AST ALT Alkaline Phosphatase Troponin T C-Reactive Protein Total Protein Albumin Triglycerides LDL Cholesterol Direct HDL Cholesterol Urine WBC (Auto) Urine Creatinine Fluid Total Protein 12/25/17 12/25/17 12/26/17 16:13 21:46 06:54 WBC 16.6 H RBC Hgb 10.0 L Hct 29.3 L MCV 74 L MCH 25 L RDW 16.5 H Plt Count 27 L Lymph % (Auto) [place] % (Auto) Lymph # [place] # Seg Neutrophils % Seg Neuts % (Manual) Lymphocytes % (Manual) Seg Neutrophils # Seg Neutrophils # Man Lymphocytes # (Manual) PT INR POC ABG pH POC ABG pCO2 POC ABG pO2 Sodium Potassium Chloride Carbon Dioxide BUN Creatinine Glucose POC Glucose 264 H 249 H Lactic Acid Calcium Phosphorus Magnesium Total Bilirubin AST ALT Alkaline Phosphatase Troponin T C-Reactive Protein Total Protein Albumin Triglycerides LDL Cholesterol Direct HDL Cholesterol Urine WBC (Auto) Urine Creatinine Fluid Total Protein 12/26/17 12/26/17 12/26/17 06:54 07:57 11:36 WBC RBC Hgb Hct MCV MCH RDW Plt Count Lymph % (Auto) [place] % (Auto) Lymph # [place] # Seg Neutrophils % Seg Neuts % (Manual) Lymphocytes % (Manual) Seg Neutrophils # Seg Neutrophils # Man Lymphocytes # (Manual) PT INR POC ABG pH POC ABG pCO2 POC ABG pO2 Sodium Potassium 3.0 L Chloride 97.7 L Carbon Dioxide 32 H BUN 78 H Creatinine 3.8 H Glucose 353 H POC Glucose 384 H 274 H Lactic Acid Calcium 7.2 L Phosphorus Magnesium Total Bilirubin 6.00 H AST 50 H ALT Alkaline Phosphatase 265 H Troponin T C-Reactive Protein Total Protein 4.8 L Albumin 1.4 L Triglycerides LDL Cholesterol Direct HDL Cholesterol Urine WBC (Auto) Urine Creatinine Fluid Total Protein 12/26/17 12/26/17 12/27/17 18:33 21:21 02:04 WBC RBC Hgb Hct MCV MCH RDW Plt Count Lymph % (Auto) [place] % (Auto) Lymph # [place] # Seg Neutrophils % Seg Neuts % (Manual) Lymphocytes % (Manual) Seg Neutrophils # Seg Neutrophils # Man Lymphocytes # (Manual) PT INR POC ABG pH POC ABG pCO2 POC ABG pO2 Sodium Potassium Chloride Carbon Dioxide BUN Creatinine Glucose POC Glucose 198 H 182 H 200 H Lactic Acid Calcium Phosphorus Magnesium Total Bilirubin AST ALT Alkaline Phosphatase Troponin T C-Reactive Protein Total Protein Albumin Triglycerides LDL Cholesterol Direct HDL Cholesterol Urine WBC (Auto) Urine Creatinine Fluid Total Protein 12/27/17 12/27/17 12/27/17 04:07 05:24 06:40 WBC 16.8 H RBC Hgb 9.7 L Hct 29.5 L MCV 74 L MCH 24 L RDW 16.9 H Plt Count 43 L Lymph % (Auto) [place] % (Auto) Lymph # [place] # Seg Neutrophils % Seg Neuts % (Manual) Lymphocytes % (Manual) Seg Neutrophils # Seg Neutrophils # Man Lymphocytes # (Manual) PT INR POC ABG pH 7.599 H POC ABG pCO2 POC ABG pO2 108 H Sodium Potassium Chloride Carbon Dioxide BUN Creatinine Glucose POC Glucose 156 H Lactic Acid Calcium Phosphorus Magnesium Total Bilirubin AST ALT Alkaline Phosphatase Troponin T C-Reactive Protein Total Protein Albumin Triglycerides LDL Cholesterol Direct HDL Cholesterol Urine WBC (Auto) Urine Creatinine Fluid Total Protein 12/27/17 12/27/17 12/27/17 06:40 11:03 15:50 WBC RBC Hgb Hct MCV MCH RDW Plt Count Lymph % (Auto) [place] % (Auto) Lymph # [place] # Seg Neutrophils % Seg Neuts % (Manual) Lymphocytes % (Manual) Seg Neutrophils # Seg Neutrophils # Man Lymphocytes # (Manual) PT INR POC ABG pH POC ABG pCO2 POC ABG pO2 Sodium Potassium 3.5 L Chloride Carbon Dioxide 36 H BUN 81 H Creatinine 3.8 H Glucose 153 H POC Glucose 220 H 275 H Lactic Acid Calcium 7.6 L Phosphorus Magnesium Total Bilirubin AST ALT Alkaline Phosphatase Troponin T C-Reactive Protein Total Protein Albumin Triglycerides LDL Cholesterol Direct HDL Cholesterol Urine WBC (Auto) Urine Creatinine Fluid Total Protein 12/27/17 12/27/17 12/28/17 17:23 21:44 02:05 WBC RBC Hgb Hct MCV MCH RDW Plt Count Lymph % (Auto) [place] % (Auto) Lymph # [place] # Seg Neutrophils % Seg Neuts % (Manual) Lymphocytes % (Manual) Seg Neutrophils # Seg Neutrophils # Man Lymphocytes # (Manual) PT INR POC ABG pH POC ABG pCO2 POC ABG pO2 Sodium Potassium Chloride Carbon Dioxide BUN Creatinine Glucose POC Glucose 256 H 180 H 148 H Lactic Acid Calcium Phosphorus Magnesium Total Bilirubin AST ALT Alkaline Phosphatase Troponin T C-Reactive Protein Total Protein Albumin Triglycerides LDL Cholesterol Direct HDL Cholesterol Urine WBC (Auto) Urine Creatinine Fluid Total Protein 12/28/17 12/28/17 12/28/17 04:45 05:00 08:14 WBC RBC Hgb Hct MCV MCH RDW Plt Count Lymph % (Auto) [place] % (Auto) Lymph # [place] # Seg Neutrophils % Seg Neuts % (Manual) Lymphocytes % (Manual) Seg Neutrophils # Seg Neutrophils # Man Lymphocytes # (Manual) PT INR POC ABG pH POC ABG pCO2 POC ABG pO2 Sodium 147 H Potassium 3.3 L Chloride Carbon Dioxide 32 H BUN 82 H Creatinine 3.9 H Glucose 212 H POC Glucose 205 H 180 H Lactic Acid Calcium 7.6 L Phosphorus Magnesium Total Bilirubin AST ALT Alkaline Phosphatase Troponin T C-Reactive Protein Total Protein Albumin Triglycerides LDL Cholesterol Direct HDL Cholesterol Urine WBC (Auto) Urine Creatinine Fluid Total Protein 12/28/17 12/28/17 12/28/17 12:07 13:16 16:28 WBC RBC Hgb Hct MCV MCH RDW Plt Count Lymph % (Auto) [place] % (Auto) Lymph # [place] # Seg Neutrophils % Seg Neuts % (Manual) Lymphocytes % (Manual) Seg Neutrophils # Seg Neutrophils # Man Lymphocytes # (Manual) PT 16.4 H INR 1.25 H POC ABG pH POC ABG pCO2 POC ABG pO2 Sodium Potassium Chloride Carbon Dioxide BUN Creatinine Glucose POC Glucose 213 H 126 H Lactic Acid Calcium Phosphorus Magnesium Total Bilirubin AST ALT Alkaline Phosphatase Troponin T C-Reactive Protein Total Protein Albumin Triglycerides LDL Cholesterol Direct HDL Cholesterol Urine WBC (Auto) Urine Creatinine Fluid Total Protein 12/28/17 12/29/17 12/29/17 21:41 06:36 10:02 WBC 17.1 H RBC Hgb 9.3 L Hct 28.5 L MCV 76 L MCH 25 L RDW 17.2 H Plt Count 107 L D Lymph % (Auto) 6.8 L [place] % (Auto) 7.4 H Lymph # [place] # 1.3 H Seg Neutrophils % 85.0 H Seg Neuts % (Manual) Lymphocytes % (Manual) Seg Neutrophils # 14.5 H Seg Neutrophils # Man Lymphocytes # (Manual) PT INR POC ABG pH POC ABG pCO2 POC ABG pO2 Sodium Potassium Chloride Carbon Dioxide BUN Creatinine Glucose POC Glucose 201 H 243 H Lactic Acid Calcium Phosphorus Magnesium Total Bilirubin AST ALT Alkaline Phosphatase Troponin T C-Reactive Protein Total Protein Albumin Triglycerides LDL Cholesterol Direct HDL Cholesterol Urine WBC (Auto) Urine Creatinine Fluid Total Protein 12/29/17 12/29/17 12/29/17 10:02 11:49 15:45 WBC RBC Hgb Hct MCV MCH RDW Plt Count Lymph % (Auto) [place] % (Auto) Lymph # [place] # Seg Neutrophils % Seg Neuts % (Manual) Lymphocytes % (Manual) Seg Neutrophils # Seg Neutrophils # Man Lymphocytes # (Manual) PT INR POC ABG pH POC ABG pCO2 POC ABG pO2 Sodium 151 H Potassium 3.3 L Chloride 108.8 H Carbon Dioxide BUN 81 H Creatinine 3.8 H Glucose 166 H POC Glucose 207 H Lactic Acid Calcium 7.7 L Phosphorus Magnesium Total Bilirubin 2.40 H AST 48 H ALT Alkaline Phosphatase 239 H Troponin T C-Reactive Protein Total Protein 5.5 L Albumin 1.7 L Triglycerides LDL Cholesterol Direct HDL Cholesterol Urine WBC (Auto) Urine Creatinine Fluid Total Protein < 3.0 L 12/29/17 12/29/17 12/30/17 17:33 22:21 01:08 WBC RBC Hgb Hct MCV MCH RDW Plt Count Lymph % (Auto) [place] % (Auto) Lymph # [place] # Seg Neutrophils % Seg Neuts % (Manual) Lymphocytes % (Manual) Seg Neutrophils # Seg Neutrophils # Man Lymphocytes # (Manual) PT INR POC ABG pH POC ABG pCO2 POC ABG pO2 Sodium Potassium Chloride Carbon Dioxide BUN Creatinine Glucose POC Glucose 110 H 242 H 161 H Lactic Acid Calcium Phosphorus Magnesium Total Bilirubin AST ALT Alkaline Phosphatase Troponin T C-Reactive Protein Total Protein Albumin Triglycerides LDL Cholesterol Direct HDL Cholesterol Urine WBC (Auto) Urine Creatinine Fluid Total Protein 12/30/17 12/30/17 12/30/17 05:30 05:30 05:39 WBC 16.6 H RBC 3.63 L Hgb 9.1 L Hct 26.7 L MCV 74 L MCH 25 L RDW 16.9 H Plt Count 119 L Lymph % (Auto) 7.5 L [place] % (Auto) 7.5 H Lymph # [place] # 1.2 H Seg Neutrophils % 83.5 H Seg Neuts % (Manual) Lymphocytes % (Manual) Seg Neutrophils # 13.9 H Seg Neutrophils # Man Lymphocytes # (Manual) PT INR POC ABG pH POC ABG pCO2 POC ABG pO2 Sodium 146 H Potassium 2.9 L* Chloride Carbon Dioxide BUN 80 H Creatinine 3.5 H Glucose 160 H POC Glucose 113 H Lactic Acid Calcium 7.5 L Phosphorus Magnesium Total Bilirubin 2.30 H AST 87 H ALT Alkaline Phosphatase 403 H Troponin T C-Reactive Protein Total Protein 5.1 L Albumin 1.5 L Triglycerides LDL Cholesterol Direct HDL Cholesterol Urine WBC (Auto) Urine Creatinine Fluid Total Protein 12/30/17 12/30/17 12/30/17 06:09 11:02 16:40 WBC RBC Hgb Hct MCV MCH RDW Plt Count Lymph % (Auto) [place] % (Auto) Lymph # [place] # Seg Neutrophils % Seg Neuts % (Manual) Lymphocytes % (Manual) Seg Neutrophils # Seg Neutrophils # Man Lymphocytes # (Manual) PT INR POC ABG pH POC ABG pCO2 POC ABG pO2 Sodium Potassium Chloride Carbon Dioxide BUN Creatinine Glucose POC Glucose 189 H 265 H 224 H Lactic Acid Calcium Phosphorus Magnesium Total Bilirubin AST ALT Alkaline Phosphatase Troponin T C-Reactive Protein Total Protein Albumin Triglycerides LDL Cholesterol Direct HDL Cholesterol Urine WBC (Auto) Urine Creatinine Fluid Total Protein 12/30/17 12/31/17 12/31/17 21:51 02:11 06:23 WBC RBC Hgb Hct MCV MCH RDW Plt Count Lymph % (Auto) [place] % (Auto) Lymph # [place] # Seg Neutrophils % Seg Neuts % (Manual) Lymphocytes % (Manual) Seg Neutrophils # Seg Neutrophils # Man Lymphocytes # (Manual) PT INR POC ABG pH POC ABG pCO2 POC ABG pO2 Sodium Potassium Chloride Carbon Dioxide BUN Creatinine Glucose POC Glucose 262 H 171 H 147 H Lactic Acid Calcium Phosphorus Magnesium Total Bilirubin AST ALT Alkaline Phosphatase Troponin T C-Reactive Protein Total Protein Albumin Triglycerides LDL Cholesterol Direct HDL Cholesterol Urine WBC (Auto) Urine Creatinine Fluid Total Protein 12/31/17 12/31/17 12/31/17 11:05 12:50 12:50 WBC 13.2 H RBC 3.28 L Hgb 8.3 L Hct 24.8 L MCV 76 L MCH 25 L RDW 17.0 H Plt Count 131 L Lymph % (Auto) 7.6 L [place] % (Auto) Lymph # 1.0 L [place] # Seg Neutrophils % 84.8 H Seg Neuts % (Manual) Lymphocytes % (Manual) Seg Neutrophils # 11.2 H Seg Neutrophils # Man Lymphocytes # (Manual) PT INR POC ABG pH POC ABG pCO2 POC ABG pO2 Sodium 147 H Potassium 3.1 L Chloride 107.9 H Carbon Dioxide BUN 74 H Creatinine 3.0 H Glucose 184 H POC Glucose 199 H Lactic Acid Calcium 7.5 L Phosphorus Magnesium Total Bilirubin 1.90 H AST 85 H ALT Alkaline Phosphatase 596 H Troponin T C-Reactive Protein Total Protein 5.6 L Albumin 1.9 L Triglycerides LDL Cholesterol Direct HDL Cholesterol Urine WBC (Auto) Urine Creatinine Fluid Total Protein 12/31/17 12/31/17 12/31/17 14:52 18:10 22:01 WBC RBC Hgb Hct MCV MCH RDW Plt Count Lymph % (Auto) [place] % (Auto) Lymph # [place] # Seg Neutrophils % Seg Neuts % (Manual) Lymphocytes % (Manual) Seg Neutrophils # Seg Neutrophils # Man Lymphocytes # (Manual) PT INR POC ABG pH POC ABG pCO2 POC ABG pO2 Sodium Potassium Chloride Carbon Dioxide BUN Creatinine Glucose POC Glucose 202 H 189 H 150 H Lactic Acid Calcium Phosphorus Magnesium Total Bilirubin AST ALT Alkaline Phosphatase Troponin T C-Reactive Protein Total Protein Albumin Triglycerides LDL Cholesterol Direct HDL Cholesterol Urine WBC (Auto) Urine Creatinine Fluid Total Protein 01/01/18 01/01/18 01/01/18 01:54 04:52 04:52 WBC 13.1 H RBC 3.17 L Hgb 7.9 L Hct 23.8 L MCV 75 L MCH 25 L RDW 16.5 H Plt Count 121 L Lymph % (Auto) [place] % (Auto) Lymph # [place] # Seg Neutrophils % Seg Neuts % (Manual) Lymphocytes % (Manual) Seg Neutrophils # Seg Neutrophils # Man Lymphocytes # (Manual) PT INR POC ABG pH POC ABG pCO2 POC ABG pO2 Sodium 151 H Potassium Chloride 116.6 H Carbon Dioxide BUN 65 H Creatinine 2.8 H Glucose 172 H POC Glucose 208 H Lactic Acid Calcium 7.5 L Phosphorus Magnesium Total Bilirubin AST ALT Alkaline Phosphatase Troponin T C-Reactive Protein Total Protein Albumin Triglycerides LDL Cholesterol Direct HDL Cholesterol Urine WBC (Auto) Urine Creatinine Fluid Total Protein 01/01/18 01/01/18 01/01/18 05:20 10:16 14:09 WBC RBC Hgb Hct MCV MCH RDW Plt Count Lymph % (Auto) [place] % (Auto) Lymph # [place] # Seg Neutrophils % Seg Neuts % (Manual) Lymphocytes % (Manual) Seg Neutrophils # Seg Neutrophils # Man Lymphocytes # (Manual) PT INR POC ABG pH POC ABG pCO2 POC ABG pO2 Sodium Potassium Chloride Carbon Dioxide BUN Creatinine Glucose POC Glucose 202 H 231 H 322 H Lactic Acid Calcium Phosphorus Magnesium Total Bilirubin AST ALT Alkaline Phosphatase Troponin T C-Reactive Protein Total Protein Albumin Triglycerides LDL Cholesterol Direct HDL Cholesterol Urine WBC (Auto) Urine Creatinine Fluid Total Protein 01/01/18 01/02/18 01/02/18 18:15 00:55 05:51 WBC RBC Hgb Hct MCV MCH RDW Plt Count Lymph % (Auto) [place] % (Auto) Lymph # [place] # Seg Neutrophils % Seg Neuts % (Manual) Lymphocytes % (Manual) Seg Neutrophils # Seg Neutrophils # Man Lymphocytes # (Manual) PT INR POC ABG pH POC ABG pCO2 POC ABG pO2 Sodium Potassium Chloride Carbon Dioxide BUN Creatinine Glucose POC Glucose 258 H 284 H 265 H Lactic Acid Calcium Phosphorus Magnesium Total Bilirubin AST ALT Alkaline Phosphatase Troponin T C-Reactive Protein Total Protein Albumin Triglycerides LDL Cholesterol Direct HDL Cholesterol Urine WBC (Auto) Urine Creatinine Fluid Total Protein 01/02/18 01/02/18 01/02/18 12:19 17:18 17:20 WBC RBC Hgb Hct MCV MCH RDW Plt Count Lymph % (Auto) [place] % (Auto) Lymph # [place] # Seg Neutrophils % Seg Neuts % (Manual) Lymphocytes % (Manual) Seg Neutrophils # Seg Neutrophils # Man Lymphocytes # (Manual) PT INR POC ABG pH POC ABG pCO2 POC ABG pO2 Sodium Potassium Chloride Carbon Dioxide BUN 47 H Creatinine 1.8 H Glucose 127 H POC Glucose 273 H 144 H Lactic Acid Calcium 8.0 L Phosphorus Magnesium Total Bilirubin AST ALT Alkaline Phosphatase Troponin T C-Reactive Protein Total Protein Albumin Triglycerides LDL Cholesterol Direct HDL Cholesterol Urine WBC (Auto) Urine Creatinine Fluid Total Protein 01/02/18 01/02/18 01/03/18 21:25 Unknown 05:50 WBC RBC Hgb Hct MCV MCH RDW Plt Count Lymph % (Auto) [place] % (Auto) Lymph # [place] # Seg Neutrophils % Seg Neuts % (Manual) Lymphocytes % (Manual) Seg Neutrophils # Seg Neutrophils # Man Lymphocytes # (Manual) PT INR POC ABG pH POC ABG pCO2 POC ABG pO2 Sodium 136 L Potassium 6.1 H* D Chloride 110.6 H Carbon Dioxide 20 L 20 L BUN 50 H 41 H Creatinine 2.1 H 1.8 H Glucose 246 H 137 H POC Glucose 133 H Lactic Acid Calcium 7.4 L 7.5 L Phosphorus Magnesium Total Bilirubin AST ALT Alkaline Phosphatase Troponin T C-Reactive Protein Total Protein Albumin Triglycerides LDL Cholesterol Direct HDL Cholesterol Urine WBC (Auto) Urine Creatinine Fluid Total Protein 01/03/18 01/03/18 06:08 12:50 WBC RBC Hgb Hct MCV MCH RDW Plt Count Lymph % (Auto) [place] % (Auto) Lymph # [place] # Seg Neutrophils % Seg Neuts % (Manual) Lymphocytes % (Manual) Seg Neutrophils # Seg Neutrophils # Man Lymphocytes # (Manual) PT INR POC ABG pH POC ABG pCO2 POC ABG pO2 Sodium Potassium Chloride Carbon Dioxide BUN Creatinine Glucose POC Glucose 151 H 137 H Lactic Acid Calcium Phosphorus Magnesium Total Bilirubin AST ALT Alkaline Phosphatase Troponin T C-Reactive Protein Total Protein Albumin Triglycerides LDL Cholesterol Direct HDL Cholesterol Urine WBC (Auto) Urine Creatinine Fluid Total Protein
[2018-01-03] MEDS: APRESOLINE PO SCH ×2 (16:19→22:19)
--- NOTE | 2018-01-03 18:37 | Progress Note ---
Assessment and Plan Assessment: 1) Severe Sepsis with septic +/- hypovolemic shock: . Initial Etiology most likely complicated UTI +/- GNR bacteremia +/- DKA/dehydration. ? persistent leukocytosis ? HAP ? aspiration pneumonia 2) Complicated UTI / emphysematous pyelitis: better. Secondary to ESBL E coli. -CT of the abdomen showed bibasilar infiltrates with enlarged fatty liver and the left hydronephrosis with hydroureter and air. -6/ GNR 10-100K 3) E. coli bacteremia: from UTI -12/20 E coli 3 of 4 bottles - pansensitive -12/22 +ESBL E coli sens to levaquin -12/28 no gus so far 4) Acute encephalopathy 5) MARLENE - not better 6) Acute respiratory failure - was on BIPAP 7) Uncontrolled diabetes with DKA 8) Hypertension 9) Diarrhea - ? reactive 10) Low platelets- from sepsis - better 11) Bilateral pneumonia ? aspiration ?HAP with bilateral mod pleural effusions seen in repeat CT s/p thoracentesis 12/30 ?transudative 12) Skin rash ? scabies S/P permethrin cream Plan: -continue meropenem renally dose D7 - while inpatient -continue isolation now for ESBL -monitor platelets and kidney function -upon discharge will do levaquin 750 mg PO q48h total 21 days until 01/13/18 -repeat permethrim cream today I am signing off Discussed with Dr Combs Thank you for your consultation, will follow up with you. Guerda Nuñez MD Infectious Diseases Specialist [facility] M [phone] O [phone] Subjective Date of service: 01/03/18 Principal diagnosis: septic shock Interval history: Feels better, sitting up. No fever. Microbiology: Blood cultures: 12/20 E coli 3 of 4 bottles / ESBL E coli 12/28 neg Urine cultures: 12/20 E coli 10-100K Pleural fluid: neg Current Antimicrobials: meropenem 12/28 Previous Antimicrobials: Zosyn Vancomycin meropenem cefepime 12/23-12/28 Objective - Exam Narrative Exam: General appearance: alert in NAD Eyes: anicteric sclerae, moist conjunctivae; no lid-lag; PERRLA HENT: Atraumatic; oropharynx +NGT Neck: Trachea midline; supple, no thyromegaly or lymphadenopathy Lungs: abeba scattered rhonchi CV: RRR, no murmurs Abdomen: Soft, non-tender Extremities: No peripheral edema or extremity lymphadenopathy Skin: Multiple nodular lesions in the arms, legs and abdominal wall Psych: alert talking. Neuro: alert Lines: amin - Constitutional Vitals: Vital Signs Temp Pulse Resp BP Pulse Ox 97.5 F L 96 H 20 186/102 97 01/03/18 12:43 01/03/18 17:33 01/03/18 12:43 01/03/18 17:33 01/03/18 12:43 Temperature -Last 24 Hours Temperature 97.5 F Temperature 98.1 F Temperature 98.1 F Temperature 98.2 F Temperature 98.4 F Temperature 98.4 F - Labs CBC & Chem 7: 01/01/18 04:52 01/03/18 05:50 Labs: Abnormal lab results 01/02/18 01/03/18 01/03/18 Range/Units 21:25 05:50 06:08 Sodium 136 L (137-145) mmol/L Carbon Dioxide 20 L (22-30) mmol/L BUN 41 H (7-17) mg/dL Creatinine 1.8 H (0.7-1.2) mg/dL Glucose 137 H (65-100) mg/dL POC Glucose 133 H 151 H (70-105) Calcium 7.5 L (8.4-10.2) mg/dL 01/03/18 01/03/18 Range/Units 12:50 16:25 Sodium (137-145) mmol/L Carbon Dioxide (22-30) mmol/L BUN (7-17) mg/dL Creatinine (0.7-1.2) mg/dL Glucose (65-100) mg/dL POC Glucose 137 H 200 H (70-105) Calcium (8.4-10.2) mg/dL
[2018-01-03] MEDS ORDERED: ACTICIN TP ONE (20:00)
[2018-01-04] MEDS: VANCOMYCIN PO PO SCH ×2 (00:18→06:16)
[2018-01-04] MEDS: APRESOLINE PO SCH ×3 (06:16→22:14)
--- NOTE | 2018-01-04 07:34 | Progress Note ---
Assessment and Plan 1. Acute kidney injury: Vasomotor / hemodynamic MARLENE in the setting of septic shock. Renal function continue to improve. 2. Septic shock: In the setting of Acute pyelonephritis and E.Coli bacteremia. Improved. 3. Left hydronephrosis. 4. HTN: ON Amlodipine. Add Labetalol. 5. Electrolytes: Hyperkalemia, improved. Hypernatremia, improved. 6. DKA: Improved. 7. Acute Encephalopathy: Improving. 8. Thrombocytopenia: Improved. Subjective Date of service: 01/04/18 Principal diagnosis: septic shock Interval history: Patient was seen and examined at the bedside. Doing better. Objective - Vital Signs Vital signs: Vital Signs - 12hr 01/03/18 01/03/18 01/03/18 21:00 22:00 22:19 Temperature Pulse Rate 94 H 98 H Pulse Rate [ From Monitor] Respiratory Rate Blood Pressure 169/87 O2 Sat by Pulse 95 Oximetry 01/03/18 01/04/18 01/04/18 22:35 00:25 06:16 Temperature 98.6 F Pulse Rate 88 103 H Pulse Rate [ 98 H From Monitor] Respiratory 20 18 Rate Blood Pressure 159/72 173/89 O2 Sat by Pulse 98 97 Oximetry - General Appearance General appearance: well-developed, appears stated age, other (no distress) EENT: ATNC, PERRL, mucous membranes moist, hearing intact, vision intact Neck: supple Respiratory: Present: Clear to Ascultation Cardiology: regular, S1S2, no murmurs Gastrointestinal: normoactive bowel sounds, no tenderness Integumentary: warm and dry Neurologic: no focal deficit Musculoskeletal: other (1+ edema of both LEs noted) - Lab 01/04/18 Unknown 01/04/18 Unknown Most recent lab results Calcium 7.5 mg/dL (8.4-10.2) L 01/03/18 05:50 Phosphorus 3.50 mg/dL (2.5-4.5) 12/29/17 10:02 Magnesium 2.30 mg/dL (1.7-2.3) 12/29/17 10:02 Urine Creatinine 65.1 mg/dL (0.1-20.0) H 12/23/17 15:13 Urine Sodium 26 mmol/L 12/23/17 15:13
[2018-01-04 08:11] LABS: Basophils % (Auto) 0.6 % (0.0-1.8); Eosinophils # (Auto) 0.1 K/mm3 (0.0-0.4); Eosinophils % (Auto) 1.4 % (0.0-4.3); Hemoglobin 6.8 gm/dl (10.1-14.3); Lymphocytes # (Auto) 0.9 K/mm3 (1.2-5.4); Lymphocytes % (Auto) 11.1 % (13.4-35.0); Mean Corpuscular HGB Conc 34 % (30-34); Mean Corpuscular Hemoglobin 26 pg (28-32); Mean Corpuscular Volume 76 fl (79-97); Monocytes # (Auto) 0.8 K/mm3 (0.0-0.8); Monocytes % (Auto) 9.9 % (0.0-7.3); Platelet Count 203 K/mm3 (140-440); Red Blood Count 2.62 M/mm3 (3.65-5.03); Red Cell Distribution Width 17.2 % (13.2-15.2)
[2018-01-04] MEDS: HumuLIN R SUB-Q SCH ×4 (08:28→22:16)
[2018-01-04 08:32] LABS: Calcium 7.3 mg/dL (8.4-10.2)
[2018-01-04] MEDS ORDERED: MAGNESIUM SULFATE 2GM/50ML 2 GM/50 ML BAG IV ONE (09:26)
[2018-01-04] MEDS: SODIUM CHLORIDE FLUSH SYRINGE 10 ML IV SCH ×2 (10:30→22:15)
[2018-01-04] MEDS: MERREM 1,000 MG in NACL 0.9% 100 ML IV SCH (10:40)
[2018-01-04] MEDS: VITAMIN B-1 PO SCH (10:50)
[2018-01-04] MEDS: PEPCID PO SCH ×2 (10:50→22:14)
[2018-01-04] MEDS: FOLVITE PO SCH (10:50)
[2018-01-04] MEDS: Centrum Liq PO SCH (10:51)
[2018-01-04] MEDS: NORMODYNE PO SCH ×2 (10:51→22:13)
[2018-01-04] MEDS ORDERED: NACL 0.9% 500 ML 500 ML IV ONE (11:17)
--- NOTE | 2018-01-04 11:18 | Progress Note ---
Assessment and Plan Assessment and plan: --Anemia; significant drop in H&H, Hb 6.8 Transfuse 1 unit of PRBC, stool for occult blood --Hypomagnessemia; replace per protocol --Uncontrolled hypertension; continue current antihypertensives Increase Norvasc to 10 mg by mouth daily, add hydralazine 10 mg 3 times a day --Sepsis secondary to UTI; pyelonephritis; bacteremia On meropenem, vancomycin per ID follow cultures --Septic shock(severe sepsis; due to ESBL Escherichia coli UTI ,pyelonephritis ,bacteremia, antibiotics per ID, resolved --DKA; resolved --Type 2 diabetes mellitus; Accu-Chek sliding scale coverage and ADA diet And insulin --Acute Kidney injury; closely monitor renal function and avoid nephrotoxins Nephrology following --Acute on chronic hypoxic respiratory failure; continue current management Oxygen titrated to O2 sats more than 90%, pulmonary following --DVT prophylaxis; heparin We'll closely monitor the patient and adjust management as needed DC planning. Case management History Interval history: Patient seen and examined medical records reviewed Patient feels slightly better H&H slightly dropped. No external evidence of bleeding Patient is sitting in the chair comfortable Vital signs noted Hospitalist Physical - Constitutional Vitals: Temp Pulse Resp BP Pulse Ox 98.6 F 103 H 18 179/73 98 01/04/18 00:25 01/04/18 06:16 01/04/18 00:25 01/04/18 10:51 01/04/18 10:33 General appearance: Present: no acute distress, well-nourished, obese - EENT Eyes: Present: PERRL, EOM intact - Neck Neck: Present: supple, normal ROM - Respiratory Respiratory effort: normal Respiratory: bilateral: diminished, negative: rales, rhonchi, wheezing - Cardiovascular Rhythm: regular Heart Sounds: Present: S1 & S2 - Extremities Extremities: no ischemia, No edema Peripheral Pulses: within normal limits - Abdominal General gastrointestinal: soft, non-tender, non-distended, normal bowel sounds - Integumentary Integumentary: Present: clear, warm - Psychiatric Psychiatric: appropriate mood/affect, cooperative - Neurologic Neurologic: CNII-XII intact, moves all extremities Results - Labs CBC & Chem 7: 01/04/18 Unknown 01/04/18 Unknown Labs: Laboratory Last Values WBC 8.1 K/mm3 (4.5-11.0) 01/04/18 Unknown RBC 2.62 M/mm3 (3.65-5.03) L 01/04/18 Unknown Hgb 6.8 gm/dl (10.1-14.3) L 01/04/18 Unknown Hct 20.0 % (30.3-42.9) L 01/04/18 Unknown MCV 76 fl (79-97) L 01/04/18 Unknown MCH 26 pg (28-32) L 01/04/18 Unknown MCHC 34 % (30-34) 01/04/18 Unknown RDW 17.2 % (13.2-15.2) H 01/04/18 Unknown Plt Count 203 K/mm3 (140-440) 01/04/18 Unknown Lymph % (Auto) 11.1 % (13.4-35.0) L 01/04/18 Unknown [place] % (Auto) 9.9 % (0.0-7.3) H 01/04/18 Unknown Eos % (Auto) 1.4 % (0.0-4.3) 01/04/18 Unknown Baso % (Auto) 0.6 % (0.0-1.8) 01/04/18 Unknown Lymph # 0.9 K/mm3 (1.2-5.4) L 01/04/18 Unknown [place] # 0.8 K/mm3 (0.0-0.8) 01/04/18 Unknown Eos # 0.1 K/mm3 (0.0-0.4) 01/04/18 Unknown Baso # 0.0 K/mm3 (0.0-0.1) 01/04/18 Unknown Add Manual Diff Complete 12/25/17 05:55 Total Counted 100 12/25/17 05:55 Seg Neutrophils % 77.0 % (40.0-70.0) H 01/04/18 Unknown Seg Neuts % (Manual) 85.0 % (40.0-70.0) H 12/25/17 05:55 Band Neutrophils % 6.0 % 12/25/17 05:55 Lymphocytes % (Manual) 3.0 % (13.4-35.0) L 12/25/17 05:55 Reactive Lymphs % (Man) 1.0 % 12/25/17 05:55 Monocytes % (Manual) 5.0 % (0.0-7.3) 12/25/17 05:55 Eosinophils % (Manual) 0 % (0.0-4.3) 12/25/17 05:55 Basophils % (Manual) 0 % (0.0-1.8) 12/25/17 05:55 Metamyelocytes % 0 % 12/25/17 05:55 Myelocytes % 0 % 12/25/17 05:55 Promyelocytes % 0 % 12/25/17 05:55 Blast Cells % 0 % 12/25/17 05:55 Nucleated RBC % Not Reportable 12/25/17 05:55 Seg Neutrophils # 6.2 K/mm3 (1.8-7.7) 01/04/18 Unknown Seg Neutrophils # Man 11.6 K/mm3 (1.8-7.7) H 12/25/17 05:55 Band Neutrophils # 0.8 K/mm3 12/25/17 05:55 Lymphocytes # (Manual) 0.4 K/mm3 (1.2-5.4) L 12/25/17 05:55 Abs React Lymphs (Man) 0.1 K/mm3 12/25/17 05:55 Monocytes # (Manual) 0.7 K/mm3 (0.0-0.8) 12/25/17 05:55 Eosinophils # (Manual) 0.0 K/mm3 (0.0-0.4) 12/25/17 05:55 Basophils # (Manual) 0.0 K/mm3 (0.0-0.1) 12/25/17 05:55 Metamyelocytes # 0.0 K/mm3 12/25/17 05:55 Myelocytes # 0.0 K/mm3 12/25/17 05:55 Promyelocytes # 0.0 K/mm3 12/25/17 05:55 Blast Cells # 0.0 K/mm3 12/25/17 05:55 WBC Morphology Not Reportable 12/25/17 05:55 Hypersegmented Neuts Not Reportable 12/25/17 05:55 Hyposegmented Neuts Not Reportable 12/25/17 05:55 Hypogranular Neuts Not Reportable 12/25/17 05:55 Smudge Cells Not Reportable 12/25/17 05:55 Toxic Granulation Not Reportable 12/25/17 05:55 Toxic Vacuolation Not Reportable 12/25/17 05:55 Dohle Bodies Not Reportable 12/25/17 05:55 Pelger-Huet Anomaly Not Reportable 12/25/17 05:55 Pooja Rods Not Reportable 12/25/17 05:55 Platelet Estimate Consistent w auto 12/25/17 05:55 Clumped Platelets Not Reportable 12/25/17 05:55 Plt Clumps, EDTA Not Reportable 12/25/17 05:55 Large Platelets Not Reportable 12/25/17 05:55 Giant Platelets Not Reportable 12/25/17 05:55 Platelet Satelliting Not Reportable 12/25/17 05:55 Plt Morphology Comment Not Reportable 12/25/17 05:55 RBC Morphology Not Reportable 12/25/17 05:55 Dimorphic RBCs Not Reportable 12/25/17 05:55 Polychromasia Not Reportable 12/25/17 05:55 Hypochromasia 1+ 12/25/17 05:55 Poikilocytosis Not Reportable 12/25/17 05:55 Anisocytosis 1+ 12/25/17 05:55 Microcytosis 1+ 12/25/17 05:55 Macrocytosis Not Reportable 12/25/17 05:55 Spherocytes Not Reportable 12/25/17 05:55 Pappenheimer Bodies Not Reportable 12/25/17 05:55 Sickle Cells Not Reportable 12/25/17 05:55 Target Cells Not Reportable 12/25/17 05:55 Tear Drop Cells Not Reportable 12/25/17 05:55 Ovalocytes Not Reportable 12/25/17 05:55 Helmet Cells Not Reportable 12/25/17 05:55 [place] Bodies Not Reportable 12/25/17 05:55 [place] Rings Not Reportable 12/25/17 05:55 [place] Cells Not Reportable 12/25/17 05:55 Bite Cells Not Reportable 12/25/17 05:55 Crenated Cell Not Reportable 12/25/17 05:55 Elliptocytes Not Reportable 12/25/17 05:55 Acanthocytes (Spur) Not Reportable 12/25/17 05:55 Rouleaux Not Reportable 12/25/17 05:55 Hemoglobin C Crystals Not Reportable 12/25/17 05:55 Schistocytes Not Reportable 12/25/17 05:55 Malaria parasites Not Reportable 12/25/17 05:55 López Bodies Not Reportable 12/25/17 05:55 Hem Pathologist Commnt No 12/25/17 05:55 PT 16.4 Sec. (12.2-14.9) H 12/28/17 13:16 INR 1.25 (0.87-1.13) H 12/28/17 13:16 Heparin Anti-Xa, Unfract Negative (Negative) 12/23/17 10:15 POC ABG pH 7.599 (7.35-7.45) H 12/27/17 04:07 POC ABG pCO2 42.4 (35-45) 12/27/17 04:07 POC ABG pO2 108 (80-105) H 12/27/17 04:07 POC ABG HCO3 41.6 12/27/17 04:07 POC ABG Total CO2 43 12/27/17 04:07 POC ABG O2 Sat 99 12/27/17 04:07 POC ABG Base Excess 20 12/27/17 04:07 VBG pH 7.320 (7.320-7.420) 12/20/17 23:35 FiO2 35 % 12/27/17 04:07 Sodium 138 mmol/L (137-145) 01/04/18 Unknown Potassium 4.2 mmol/L (3.6-5.0) 01/04/18 Unknown Chloride 107.2 mmol/L (98-107) H 01/04/18 Unknown Carbon Dioxide 22 mmol/L (22-30) 01/04/18 Unknown Anion Gap 13 mmol/L 01/04/18 Unknown BUN 33 mg/dL (7-17) H 01/04/18 Unknown Creatinine 1.7 mg/dL (0.7-1.2) H 01/04/18 Unknown Estimated GFR 32 ml/min 01/04/18 Unknown BUN/Creatinine Ratio 19 % 01/04/18 Unknown Glucose 141 mg/dL (65-100) H 01/04/18 Unknown POC Glucose 139 (70-105) H 01/04/18 06:14 Lactic Acid 2.10 mmol/L (0.7-2.0) H* 12/25/17 09:41 Calcium 7.3 mg/dL (8.4-10.2) L 01/04/18 Unknown Phosphorus 3.50 mg/dL (2.5-4.5) 12/29/17 10:02 Magnesium 1.60 mg/dL (1.7-2.3) L 01/04/18 Unknown Total Bilirubin 1.90 mg/dL (0.1-1.2) H 12/31/17 12:50 AST 85 units/L (5-40) H 12/31/17 12:50 ALT 50 units/L (7-56) 12/31/17 12:50 Alkaline Phosphatase 596 units/L (35-129) H 12/31/17 12:50 Ammonia 28.0 umol/L (25-60) 12/25/17 09:41 Total Creatine Kinase 117 units/L (30-135) 12/21/17 13:27 CK-MB (CK-2) 3.9 ng/mL (0.0-4.0) 12/21/17 13:27 CK-MB (CK-2) Rel Index 3.3 (0-4) 12/21/17 13:27 Troponin T 0.087 ng/mL (0.00-0.029) H 12/21/17 13:27 C-Reactive Protein 19.90 mg/dL (0.00-1.30) H 12/25/17 05:55 Total Protein 5.6 g/dL (6.3-8.2) L 12/31/17 12:50 Albumin 1.9 g/dL (3.9-5) L 12/31/17 12:50 Albumin/Globulin Ratio 0.5 % 12/31/17 12:50 Triglycerides 202 mg/dL (2-149) H 12/21/17 13:27 Cholesterol 57 mg/dL (50-199) 12/21/17 13:27 LDL Cholesterol Direct 6 mg/dL (50-130) L 12/21/17 13:27 HDL Cholesterol 10 mg/dL (40-59) L 12/21/17 13:27 Cholesterol/HDL Ratio 5.70 % 12/21/17 13:27 Serotonin Release Assay See scanned result 12/23/17 10:15 Urine Color Yellow (Yellow) 12/21/17 01:50 Urine Turbidity Clear (Clear) 12/21/17 01:50 Urine pH 5.0 (5.0-7.0) 12/21/17 01:50 Ur Specific [employer] 1.015 (1.003-1.030) 12/21/17 01:50 Urine Protein <15 mg/dl mg/dL (Negative) 12/21/17 01:50 Urine Glucose (UA) >=500 mg/dL (Negative) 12/21/17 01:50 Urine Ketones Neg mg/dL (Negative) 12/21/17 01:50 Urine Blood Neg (Negative) 12/21/17 01:50 Urine Nitrite Neg (Negative) 12/21/17 01:50 Urine Bilirubin Neg (Negative) 12/21/17 01:50 Urine Urobilinogen < 2.0 mg/dL (<2.0) 12/21/17 01:50 Ur Leukocyte Esterase Sm (Negative) 12/21/17 01:50 Urine WBC (Auto) 38.0 /HPF (0.0-6.0) H 12/21/17 01:50 Urine RBC (Auto) 3.0 /HPF (0.0-6.0) 12/21/17 01:50 U Epithel Cells (Auto) 3.0 /HPF (0-13.0) 12/21/17 01:50 Urine Bacteria (Auto) 2+ /HPF (Negative) 12/21/17 01:50 Urine Creatinine 65.1 mg/dL (0.1-20.0) H 12/23/17 15:13 Urine Sodium 26 mmol/L 12/23/17 15:13 Fluid Type Pleural 12/29/17 15:45 Fluid Color Dark yellow 12/29/17 15:45 Fluid Appearance Clear 12/29/17 15:45 Fluid WBC 93 /mm3 12/29/17 15:45 Fluid RBC 125 /mm3 12/29/17 15:45 Fluid Seg Neutrophils 42.0 % 12/29/17 15:45 Fluid Lymphocytes 5.0 % 12/29/17 15:45 Fluid Reactive Lymphs 0 % 12/29/17 15:45 Fluid Monocytes 53.0 % 12/29/17 15:45 Fluid Eosinophils 0 % 12/29/17 15:45 Fluid Basophils 0 % 12/29/17 15:45 Fluid Total Protein < 3.0 (15.0-45.0) L 12/29/17 15:45 Fluid LDH 73 12/29/17 15:45 Fluid Cholesterol < 15 12/29/17 15:45 Fluid Comment Diff performed 12/29/17 15:45 Random Vancomycin 15.4 ug/mL (0-40.0) 12/22/17 Unknown Heparin-induced Plt Ab Negative (Negative) 12/23/17 10:15 UF Heparin High Dose 0 % Release 12/23/17 10:15 BRITNEY UFH Low Dose 0.1 0 % Release 12/23/17 10:15 [place]NEY UFH Low Dose 0.5 0 % Release 12/23/17 10:15 C. difficile Toxin A&B Negative (Negative) 12/21/17 04:52 Hepatitis A IgM Ab Non-reactive (NonReactive) 12/21/17 08:44 Hep Bs Antigen Non-reactive (Negative) 12/21/17 08:44 Hep B Core IgM Ab Non-reactive (NonReactive) 12/21/17 08:44 Hepatitis C Antibody Non-reactive (NonReactive) 12/21/17 08:44
[2018-01-04] MEDS ORDERED: NACL 0.9% 500 ML 500 ML ONE (17:17)
[2018-01-05] MEDS: APRESOLINE PO SCH ×3 (05:58→22:33)
[2018-01-05 06:36] LABS: Basophils # (Auto) 0.1 K/mm3 (0.0-0.1); Basophils % (Auto) 0.9 % (0.0-1.8); Eosinophils # (Auto) 0.1 K/mm3 (0.0-0.4); Eosinophils % (Auto) 1.8 % (0.0-4.3); Hematocrit 22.3 % (30.3-42.9); Hemoglobin 7.6 gm/dl (10.1-14.3); Lymphocytes % (Auto) 11.6 % (13.4-35.0); Mean Corpuscular HGB Conc 34 % (30-34); Mean Corpuscular Hemoglobin 27 pg (28-32); Mean Corpuscular Volume 79 fl (79-97); Monocytes # (Auto) 0.9 K/mm3 (0.0-0.8); Monocytes % (Auto) 10.5 % (0.0-7.3); Platelet Count 226 K/mm3 (140-440); Red Blood Count 2.84 M/mm3 (3.65-5.03); Red Cell Distribution Width 18.1 % (13.2-15.2)
[2018-01-05 06:59] LABS: Calcium 7.2 mg/dL (8.4-10.2)
[2018-01-05] MEDS: HumuLIN R SUB-Q SCH ×4 (08:25→22:28)
--- NOTE | 2018-01-05 09:12 | Progress Note ---
Assessment and Plan 1. Acute kidney injury: Vasomotor / hemodynamic MARLENE in the setting of septic shock. Renal function continue to improve. 2. Septic shock: In the setting of Acute pyelonephritis and E.Coli bacteremia. Improved. 3. Left hydronephrosis. 4. HTN: Controlled. 5. Electrolytes: Hyperkalemia, improved. Hypernatremia, improved. 6. DKA: Improved. 7. Acute Encephalopathy: Improving. 8. Thrombocytopenia: Improved. Subjective Date of service: 01/05/18 Principal diagnosis: septic shock Interval history: Patient was seen and examined at the bedside. Doing ok. Objective - Vital Signs Vital signs: Vital Signs - 12hr 01/04/18 01/04/18 01/04/18 21:30 22:13 22:14 Temperature 99.1 F Pulse Rate 97 H 91 H 91 H Pulse Rate [ From Monitor] Respiratory 18 Rate Blood Pressure 163/82 163/82 163/82 Blood Pressure [Left] O2 Sat by Pulse 98 Oximetry 01/04/18 01/05/18 01/05/18 22:35 00:41 05:31 Temperature 99.1 F 98.9 F Pulse Rate 95 H 82 Pulse Rate [ 91 H From Monitor] Respiratory 18 18 18 Rate Blood Pressure Blood Pressure 164/84 123/61 [Left] O2 Sat by Pulse 98 100 97 Oximetry 01/05/18 05:58 Temperature Pulse Rate 82 Pulse Rate [ From Monitor] Respiratory Rate Blood Pressure 123/61 Blood Pressure [Left] O2 Sat by Pulse Oximetry - General Appearance General appearance: well-developed, appears stated age, other (no distress) EENT: ATNC, PERRL Neck: supple Respiratory: Present: Clear to Ascultation Cardiology: regular, S1S2, no murmurs Gastrointestinal: normoactive bowel sounds, no tenderness Neurologic: no focal deficit Musculoskeletal: other (1+ edema of both LEs noted) Psychiatric: cooperative - Lab 01/05/18 06:19 01/05/18 06:19 Most recent lab results Calcium 7.2 mg/dL (8.4-10.2) L 01/05/18 06:19 Phosphorus 3.60 mg/dL (2.5-4.5) 01/05/18 06:19 Magnesium 1.70 mg/dL (1.7-2.3) 01/05/18 06:19 Urine Creatinine 65.1 mg/dL (0.1-20.0) H 12/23/17 15:13 Urine Sodium 26 mmol/L 12/23/17 15:13
[2018-01-05] MEDS ORDERED: MAGNESIUM SULFATE 2GM/50ML 2 GM/50 ML BAG IV ONE (10:00)
[2018-01-05] MEDS: Centrum Liq PO SCH (12:35)
[2018-01-05] MEDS: NORMODYNE PO SCH ×2 (12:37→22:27)
[2018-01-05] MEDS: FOLVITE PO SCH (12:37)
[2018-01-05] MEDS: NORVASC PO SCH (12:37)
[2018-01-05] MEDS: VITAMIN B-1 PO SCH (12:37)
[2018-01-05] MEDS: SODIUM CHLORIDE FLUSH SYRINGE 10 ML IV SCH ×2 (12:39→22:30)
[2018-01-05] MEDS: PEPCID PO SCH ×2 (12:45→22:27)
--- NOTE | 2018-01-05 18:01 | Progress Note ---
Assessment and Plan Assessment and plan: --Anemia; significant drop in H&H, CBC drawn unit PRBC Mild improvement of hemoglobin Hb 6.8-7.6, closely monitor H&H --Hypomagnessemia; corrected --Uncontrolled hypertension; continue current antihypertensives Increase Norvasc to 10 mg by mouth daily, add hydralazine 10 mg 3 times a day --Sepsis secondary to UTI; pyelonephritis; bacteremia On meropenem, vancomycin per ID ,oral Levaquin upon d/cstop date 01/13/18 --Septic shock(severe sepsis; due to ESBL Escherichia coli UTI ,pyelonephritis ,bacteremia, antibiotics per ID, resolved --DKA; resolved --Type 2 diabetes mellitus; Accu-Chek sliding scale coverage and ADA diet And insulin --Acute Kidney injury; closely monitor renal function and avoid nephrotoxins Nephrology following creatinine today is 1.5 --Acute on chronic hypoxic respiratory failure; continue current management Oxygen titrated to O2 sats more than 90%, pulmonary following --DVT prophylaxis; heparin Patient is stable to be transferred to telemetry to medical floor Possible discharge home tomorrow with home health is stable Plan of care discussed with the patient and multiple family members at the bedside Also discussed with case management History Interval history: Patient seen and examined medical records reviewed No new events reported by the nursing staff Patient received 1 unit of PRBCs with mild improvement of hemoglobin Complaints of tiredness Ambulates in the room Vital signs reviewed Hospitalist Physical - Constitutional Vitals: Temp Pulse Resp BP Pulse Ox 98.3 F 90 18 124/70 96 01/05/18 08:57 01/05/18 08:57 01/05/18 08:57 01/05/18 12:37 01/05/18 10:00 General appearance: Present: no acute distress, well-nourished, obese - EENT Eyes: Present: PERRL, EOM intact - Neck Neck: Present: supple, normal ROM - Respiratory Respiratory effort: normal Respiratory: bilateral: diminished, negative: rales, rhonchi, wheezing - Cardiovascular Rhythm: regular Heart Sounds: Present: S1 & S2 - Extremities Extremities: no ischemia, No edema - Abdominal General gastrointestinal: soft, non-tender, non-distended - Integumentary Integumentary: Present: clear, warm - Psychiatric Psychiatric: appropriate mood/affect Results - Labs CBC & Chem 7: 01/05/18 06:19 01/05/18 06:19 Labs: Laboratory Last Values WBC 8.2 K/mm3 (4.5-11.0) 01/05/18 06:19 RBC 2.84 M/mm3 (3.65-5.03) L 01/05/18 06:19 Hgb 7.6 gm/dl (10.1-14.3) L 01/05/18 06:19 Hct 22.3 % (30.3-42.9) L 01/05/18 06:19 MCV 79 fl (79-97) 01/05/18 06:19 MCH 27 pg (28-32) L 01/05/18 06:19 MCHC 34 % (30-34) 01/05/18 06:19 RDW 18.1 % (13.2-15.2) H 01/05/18 06:19 Plt Count 226 K/mm3 (140-440) 01/05/18 06:19 Lymph % (Auto) 11.6 % (13.4-35.0) L 01/05/18 06:19 [place] % (Auto) 10.5 % (0.0-7.3) H 01/05/18 06:19 Eos % (Auto) 1.8 % (0.0-4.3) 01/05/18 06:19 Baso % (Auto) 0.9 % (0.0-1.8) 01/05/18 06:19 Lymph # 1.0 K/mm3 (1.2-5.4) L 01/05/18 06:19 [place] # 0.9 K/mm3 (0.0-0.8) H 01/05/18 06:19 Eos # 0.1 K/mm3 (0.0-0.4) 01/05/18 06:19 Baso # 0.1 K/mm3 (0.0-0.1) 01/05/18 06:19 Add Manual Diff Complete 12/25/17 05:55 Total Counted 100 12/25/17 05:55 Seg Neutrophils % 75.2 % (40.0-70.0) H 01/05/18 06:19 Seg Neuts % (Manual) 85.0 % (40.0-70.0) H 12/25/17 05:55 Band Neutrophils % 6.0 % 12/25/17 05:55 Lymphocytes % (Manual) 3.0 % (13.4-35.0) L 12/25/17 05:55 Reactive Lymphs % (Man) 1.0 % 12/25/17 05:55 Monocytes % (Manual) 5.0 % (0.0-7.3) 12/25/17 05:55 Eosinophils % (Manual) 0 % (0.0-4.3) 12/25/17 05:55 Basophils % (Manual) 0 % (0.0-1.8) 12/25/17 05:55 Metamyelocytes % 0 % 12/25/17 05:55 Myelocytes % 0 % 12/25/17 05:55 Promyelocytes % 0 % 12/25/17 05:55 Blast Cells % 0 % 12/25/17 05:55 Nucleated RBC % Not Reportable 12/25/17 05:55 Seg Neutrophils # 6.2 K/mm3 (1.8-7.7) 01/05/18 06:19 Seg Neutrophils # Man 11.6 K/mm3 (1.8-7.7) H 12/25/17 05:55 Band Neutrophils # 0.8 K/mm3 12/25/17 05:55 Lymphocytes # (Manual) 0.4 K/mm3 (1.2-5.4) L 12/25/17 05:55 Abs React Lymphs (Man) 0.1 K/mm3 12/25/17 05:55 Monocytes # (Manual) 0.7 K/mm3 (0.0-0.8) 12/25/17 05:55 Eosinophils # (Manual) 0.0 K/mm3 (0.0-0.4) 12/25/17 05:55 Basophils # (Manual) 0.0 K/mm3 (0.0-0.1) 12/25/17 05:55 Metamyelocytes # 0.0 K/mm3 12/25/17 05:55 Myelocytes # 0.0 K/mm3 12/25/17 05:55 Promyelocytes # 0.0 K/mm3 12/25/17 05:55 Blast Cells # 0.0 K/mm3 12/25/17 05:55 WBC Morphology Not Reportable 12/25/17 05:55 Hypersegmented Neuts Not Reportable 12/25/17 05:55 Hyposegmented Neuts Not Reportable 12/25/17 05:55 Hypogranular Neuts Not Reportable 12/25/17 05:55 Smudge Cells Not Reportable 12/25/17 05:55 Toxic Granulation Not Reportable 12/25/17 05:55 Toxic Vacuolation Not Reportable 12/25/17 05:55 Dohle Bodies Not Reportable 12/25/17 05:55 Pelger-Huet Anomaly Not Reportable 12/25/17 05:55 Pooja Rods Not Reportable 12/25/17 05:55 Platelet Estimate Consistent w auto 12/25/17 05:55 Clumped Platelets Not Reportable 12/25/17 05:55 Plt Clumps, EDTA Not Reportable 12/25/17 05:55 Large Platelets Not Reportable 12/25/17 05:55 Giant Platelets Not Reportable 12/25/17 05:55 Platelet Satelliting Not Reportable 12/25/17 05:55 Plt Morphology Comment Not Reportable 12/25/17 05:55 RBC Morphology Not Reportable 12/25/17 05:55 Dimorphic RBCs Not Reportable 12/25/17 05:55 Polychromasia Not Reportable 12/25/17 05:55 Hypochromasia 1+ 12/25/17 05:55 Poikilocytosis Not Reportable 12/25/17 05:55 Anisocytosis 1+ 12/25/17 05:55 Microcytosis 1+ 12/25/17 05:55 Macrocytosis Not Reportable 12/25/17 05:55 Spherocytes Not Reportable 12/25/17 05:55 Pappenheimer Bodies Not Reportable 12/25/17 05:55 Sickle Cells Not Reportable 12/25/17 05:55 Target Cells Not Reportable 12/25/17 05:55 Tear Drop Cells Not Reportable 12/25/17 05:55 Ovalocytes Not Reportable 12/25/17 05:55 Helmet Cells Not Reportable 12/25/17 05:55 [place] Bodies Not Reportable 12/25/17 05:55 [place] Rings Not Reportable 12/25/17 05:55 [place] Cells Not Reportable 12/25/17 05:55 Bite Cells Not Reportable 12/25/17 05:55 Crenated Cell Not Reportable 12/25/17 05:55 Elliptocytes Not Reportable 12/25/17 05:55 Acanthocytes (Spur) Not Reportable 12/25/17 05:55 Rouleaux Not Reportable 12/25/17 05:55 Hemoglobin C Crystals Not Reportable 12/25/17 05:55 Schistocytes Not Reportable 12/25/17 05:55 Malaria parasites Not Reportable 12/25/17 05:55 López Bodies Not Reportable 12/25/17 05:55 Hem Pathologist Commnt No 12/25/17 05:55 PT 16.4 Sec. (12.2-14.9) H 12/28/17 13:16 INR 1.25 (0.87-1.13) H 12/28/17 13:16 Heparin Anti-Xa, Unfract Negative (Negative) 12/23/17 10:15 POC ABG pH 7.599 (7.35-7.45) H 12/27/17 04:07 POC ABG pCO2 42.4 (35-45) 12/27/17 04:07 POC ABG pO2 108 (80-105) H 12/27/17 04:07 POC ABG HCO3 41.6 12/27/17 04:07 POC ABG Total CO2 43 12/27/17 04:07 POC ABG O2 Sat 99 12/27/17 04:07 POC ABG Base Excess 20 12/27/17 04:07 VBG pH 7.320 (7.320-7.420) 12/20/17 23:35 FiO2 35 % 12/27/17 04:07 Sodium 136 mmol/L (137-145) L 01/05/18 06:19 Potassium 4.2 mmol/L (3.6-5.0) 01/05/18 06:19 Chloride 105.7 mmol/L (98-107) 01/05/18 06:19 Carbon Dioxide 19 mmol/L (22-30) L 01/05/18 06:19 Anion Gap 16 mmol/L 01/05/18 06:19 BUN 26 mg/dL (7-17) H 01/05/18 06:19 Creatinine 1.5 mg/dL (0.7-1.2) H 01/05/18 06:19 Estimated GFR 37 ml/min 01/05/18 06:19 BUN/Creatinine Ratio 17 % 01/05/18 06:19 Glucose 165 mg/dL (65-100) H 01/05/18 06:19 POC Glucose 170 (70-105) H 01/05/18 06:32 Lactic Acid 2.10 mmol/L (0.7-2.0) H* 12/25/17 09:41 Calcium 7.2 mg/dL (8.4-10.2) L 01/05/18 06:19 Phosphorus 3.60 mg/dL (2.5-4.5) 01/05/18 06:19 Magnesium 1.70 mg/dL (1.7-2.3) 01/05/18 06:19 Total Bilirubin 1.90 mg/dL (0.1-1.2) H 12/31/17 12:50 AST 85 units/L (5-40) H 12/31/17 12:50 ALT 50 units/L (7-56) 12/31/17 12:50 Alkaline Phosphatase 596 units/L (35-129) H 12/31/17 12:50 Ammonia 28.0 umol/L (25-60) 12/25/17 09:41 Total Creatine Kinase 117 units/L (30-135) 12/21/17 13:27 CK-MB (CK-2) 3.9 ng/mL (0.0-4.0) 12/21/17 13:27 CK-MB (CK-2) Rel Index 3.3 (0-4) 12/21/17 13:27 Troponin T 0.087 ng/mL (0.00-0.029) H 12/21/17 13:27 C-Reactive Protein 19.90 mg/dL (0.00-1.30) H 12/25/17 05:55 Total Protein 5.6 g/dL (6.3-8.2) L 12/31/17 12:50 Albumin 1.9 g/dL (3.9-5) L 12/31/17 12:50 Albumin/Globulin Ratio 0.5 % 12/31/17 12:50 Triglycerides 202 mg/dL (2-149) H 12/21/17 13:27 Cholesterol 57 mg/dL (50-199) 12/21/17 13:27 LDL Cholesterol Direct 6 mg/dL (50-130) L 12/21/17 13:27 HDL Cholesterol 10 mg/dL (40-59) L 12/21/17 13:27 Cholesterol/HDL Ratio 5.70 % 12/21/17 13:27 Serotonin Release Assay See scanned result 12/23/17 10:15 Urine Color Yellow (Yellow) 12/21/17 01:50 Urine Turbidity Clear (Clear) 12/21/17 01:50 Urine pH 5.0 (5.0-7.0) 12/21/17 01:50 Ur Specific [place] 1.015 (1.003-1.030) 12/21/17 01:50 Urine Protein <15 mg/dl mg/dL (Negative) 12/21/17 01:50 Urine Glucose (UA) >=500 mg/dL (Negative) 12/21/17 01:50 Urine Ketones Neg mg/dL (Negative) 12/21/17 01:50 Urine Blood Neg (Negative) 12/21/17 01:50 Urine Nitrite Neg (Negative) 12/21/17 01:50 Urine Bilirubin Neg (Negative) 12/21/17 01:50 Urine Urobilinogen < 2.0 mg/dL (<2.0) 12/21/17 01:50 Ur Leukocyte Esterase Sm (Negative) 12/21/17 01:50 Urine WBC (Auto) 38.0 /HPF (0.0-6.0) H 12/21/17 01:50 Urine RBC (Auto) 3.0 /HPF (0.0-6.0) 12/21/17 01:50 U Epithel Cells (Auto) 3.0 /HPF (0-13.0) 12/21/17 01:50 Urine Bacteria (Auto) 2+ /HPF (Negative) 12/21/17 01:50 Urine Creatinine 65.1 mg/dL (0.1-20.0) H 12/23/17 15:13 Urine Sodium 26 mmol/L 12/23/17 15:13 Fluid Type Pleural 12/29/17 15:45 Fluid Color Dark yellow 12/29/17 15:45 Fluid Appearance Clear 12/29/17 15:45 Fluid WBC 93 /mm3 12/29/17 15:45 Fluid RBC 125 /mm3 12/29/17 15:45 Fluid Seg Neutrophils 42.0 % 12/29/17 15:45 Fluid Lymphocytes 5.0 % 12/29/17 15:45 Fluid Reactive Lymphs 0 % 12/29/17 15:45 Fluid Monocytes 53.0 % 12/29/17 15:45 Fluid Eosinophils 0 % 12/29/17 15:45 Fluid Basophils 0 % 12/29/17 15:45 Fluid Total Protein < 3.0 (15.0-45.0) L 12/29/17 15:45 Fluid LDH 73 12/29/17 15:45 Fluid Cholesterol < 15 12/29/17 15:45 Fluid Comment Diff performed 12/29/17 15:45 Random Vancomycin 15.4 ug/mL (0-40.0) 12/22/17 Unknown Heparin-induced Plt Ab Negative (Negative) 12/23/17 10:15 UF Heparin High Dose 0 % Release 12/23/17 10:15 [place] UFH Low Dose 0.1 0 % Release 12/23/17 10:15 [place] UFH Low Dose 0.5 0 % Release 12/23/17 10:15 C. difficile Toxin A&B Negative (Negative) 12/21/17 04:52 Hepatitis A IgM Ab Non-reactive (NonReactive) 12/21/17 08:44 Hep Bs Antigen Non-reactive (Negative) 12/21/17 08:44 Hep B Core IgM Ab Non-reactive (NonReactive) 12/21/17 08:44 Hepatitis C Antibody Non-reactive (NonReactive) 12/21/17 08:44 Blood Type O POSITIVE 01/04/18 13:37 Antibody Screen Negative 01/04/18 13:37 Crossmatch See Detail 01/04/18 13:37
--- NOTE | 2018-01-05 18:37 | Progress Note ---
Assessment and Plan Severe sepsis with Septic shock, off vasopressor support Acute respiratory failure Bilateral pleural effusions DKA ESBL E.coli bacteremia/UTI Emphysematous pyelonephritis Uncontrolled Type 2 DM MARLENE Left Hydronephrosis Fatty Liver Abnormal LFTs, mixed picture Skin rash Acute encephalopathy, improving Gastroenteritis, viral Thrombocytopenia- multi factorial -Continue with current care -Diagnostic and therapeutic thoracentesis, follow pleural fluid results -Supplemental oxygen to keep O2 sats>90% -Antibiotics -Contact isolation -Continue with glycemic control, to keep glucose<180mg/dL -Resume tube feedings -Speech language pathologist to evaluate swallow function -Avoid nephrotoxic agents, renal monitoring. -PT/OT to evaluate and treat Discussed in detail with the patient and her daughter at the bedside Subjective Date of service: 01/05/18 Principal diagnosis: septic shock Objective Vital Signs - 12hr 01/05/18 01/05/18 01/05/18 08:57 10:00 12:37 Temperature 98.3 F Pulse Rate 90 Respiratory 18 Rate Blood Pressure 130/68 124/70 O2 Sat by Pulse 96 96 Oximetry 01/05/18 17:42 Temperature 97.9 F Pulse Rate Respiratory 18 Rate Blood Pressure 107/59 O2 Sat by Pulse Oximetry Constitutional: appears uncomfortable, other (middle aged female; looks chronically ill, normocephalic and atraumatic) Eyes: non-icteric ENT: oropharynx moist, other (mallampatti II) Neck: supple, no lymphadenopathy, no JVD, other (no thyromegaly) Effort: mildly labored Ascultation: Bilateral: diminished breath sounds, rhonchi Percussion: Bilateral: not dull Cardiovascular: regular rate and rhythm, other (No R/M) Gastrointestinal: normoactive bowel sounds, soft, non-tender, non-distended, other (No palpable HSM) Integumentary: rash Extremities: no cyanosis, no edema, pink and warm, pulses normal, no ischemia or petechiae Neurologic: non-focal exam, pupils equal and round, CN II-XII normal Psychiatric: mood appropriate, affect normal CBC and BMP: 01/05/18 06:19 01/05/18 06:19 ABG, PT/INR, D-dimer: ABG POC ABG pH 7.599 (7.35-7.45) H 12/27/17 04:07 POC ABG pCO2 42.4 (35-45) 12/27/17 04:07 POC ABG pO2 108 (80-105) H 12/27/17 04:07 POC ABG HCO3 41.6 12/27/17 04:07 POC ABG Total CO2 43 12/27/17 04:07 POC ABG O2 Sat 99 12/27/17 04:07 PT/INR, D-dimer PT 16.4 Sec. (12.2-14.9) H 12/28/17 13:16 INR 1.25 (0.87-1.13) H 12/28/17 13:16 Abnormal lab findings: Abnormal Labs 12/20/17 12/20/17 12/20/17 23:35 23:35 23:35 WBC RBC Hgb Hct MCV 78 L MCH 26 L RDW 15.7 H Plt Count 77 L Lymph % (Auto) [place] % (Auto) Lymph # [place] # Seg Neutrophils % Seg Neuts % (Manual) 76.0 H Lymphocytes % (Manual) 6.0 L Seg Neutrophils # Seg Neutrophils # Man 8.2 H Lymphocytes # (Manual) 0.6 L PT 18.5 H INR 1.45 H POC ABG pH POC ABG pCO2 POC ABG pO2 Sodium 130 L Potassium 3.5 L Chloride 92.3 L Carbon Dioxide 17 L BUN 27 H Creatinine 2.2 H Glucose 535 H* POC Glucose Lactic Acid Calcium 7.0 L Phosphorus Magnesium Total Bilirubin AST ALT Alkaline Phosphatase 173 H Troponin T C-Reactive Protein Total Protein 5.1 L Albumin 2.6 L Triglycerides LDL Cholesterol Direct HDL Cholesterol Urine WBC (Auto) Urine Creatinine Fluid Total Protein Crossmatch 12/20/17 12/21/17 12/21/17 23:35 01:11 01:11 WBC RBC Hgb Hct MCV MCH RDW Plt Count Lymph % (Auto) [place] % (Auto) Lymph # [place] # Seg Neutrophils % Seg Neuts % (Manual) Lymphocytes % (Manual) Seg Neutrophils # Seg Neutrophils # Man Lymphocytes # (Manual) PT INR POC ABG pH POC ABG pCO2 POC ABG pO2 Sodium Potassium Chloride Carbon Dioxide BUN Creatinine Glucose POC Glucose Lactic Acid 8.30 H* 8.10 H* Calcium Phosphorus 1.90 L Magnesium 1.30 L Total Bilirubin AST ALT Alkaline Phosphatase Troponin T C-Reactive Protein Total Protein Albumin Triglycerides LDL Cholesterol Direct HDL Cholesterol Urine WBC (Auto) Urine Creatinine Fluid Total Protein Crossmatch 06/04/18 06/04/18 06/04/18 01:11 01:50 02:09 WBC RBC Hgb Hct MCV MCH RDW Plt Count Lymph % (Auto) [place] % (Auto) Lymph # [place] # Seg Neutrophils % Seg Neuts % (Manual) Lymphocytes % (Manual) Seg Neutrophils # Seg Neutrophils # Man Lymphocytes # (Manual) PT INR POC ABG pH POC ABG pCO2 POC ABG pO2 Sodium 133 L Potassium 3.3 L Chloride 97.9 L Carbon Dioxide 15 L BUN 26 H Creatinine 2.1 H Glucose 504 H* POC Glucose 391 H Lactic Acid Calcium 6.4 L Phosphorus Magnesium Total Bilirubin AST ALT Alkaline Phosphatase Troponin T C-Reactive Protein Total Protein Albumin Triglycerides LDL Cholesterol Direct HDL Cholesterol Urine WBC (Auto) 38.0 H Urine Creatinine Fluid Total Protein Crossmatch 12/21/17 12/21/17 12/21/17 03:10 03:26 05:15 WBC RBC Hgb Hct MCV MCH RDW Plt Count Lymph % (Auto) [place] % (Auto) Lymph # [place] # Seg Neutrophils % Seg Neuts % (Manual) Lymphocytes % (Manual) Seg Neutrophils # Seg Neutrophils # Man Lymphocytes # (Manual) PT INR POC ABG pH POC ABG pCO2 POC ABG pO2 Sodium 135 L Potassium 3.3 L Chloride Carbon Dioxide 14 L BUN 25 H Creatinine 1.9 H Glucose 443 H POC Glucose 389 H 407 H Lactic Acid Calcium 6.0 L Phosphorus Magnesium Total Bilirubin AST ALT Alkaline Phosphatase Troponin T C-Reactive Protein Total Protein Albumin Triglycerides LDL Cholesterol Direct HDL Cholesterol Urine WBC (Auto) Urine Creatinine Fluid Total Protein Crossmatch 12/21/17 12/21/17 12/21/17 06:00 06:00 06:09 WBC RBC Hgb Hct MCV MCH RDW Plt Count Lymph % (Auto) [place] % (Auto) Lymph # [place] # Seg Neutrophils % Seg Neuts % (Manual) Lymphocytes % (Manual) Seg Neutrophils # Seg Neutrophils # Man Lymphocytes # (Manual) PT INR POC ABG pH POC ABG pCO2 POC ABG pO2 Sodium Potassium 3.4 L Chloride Carbon Dioxide 12 L BUN 28 H Creatinine 1.9 H Glucose 283 H POC Glucose 326 H Lactic Acid 7.90 H* Calcium 6.0 L Phosphorus Magnesium Total Bilirubin AST ALT Alkaline Phosphatase Troponin T C-Reactive Protein Total Protein Albumin Triglycerides LDL Cholesterol Direct HDL Cholesterol Urine WBC (Auto) Urine Creatinine Fluid Total Protein Crossmatch 12/21/17 12/21/17 12/21/17 07:23 08:16 08:44 WBC RBC Hgb Hct MCV MCH RDW Plt Count Lymph % (Auto) [place] % (Auto) Lymph # [place] # Seg Neutrophils % Seg Neuts % (Manual) Lymphocytes % (Manual) Seg Neutrophils # Seg Neutrophils # Man Lymphocytes # (Manual) PT INR POC ABG pH POC ABG pCO2 POC ABG pO2 Sodium Potassium 3.3 L Chloride 107.8 H Carbon Dioxide 14 L BUN 29 H Creatinine 2.0 H Glucose 140 H POC Glucose 267 H 257 H Lactic Acid Calcium 6.2 L Phosphorus Magnesium Total Bilirubin AST ALT Alkaline Phosphatase Troponin T C-Reactive Protein Total Protein Albumin Triglycerides LDL Cholesterol Direct HDL Cholesterol Urine WBC (Auto) Urine Creatinine Fluid Total Protein Crossmatch 12/21/17 12/21/17 12/21/17 08:44 08:44 09:02 WBC RBC Hgb Hct MCV MCH RDW Plt Count Lymph % (Auto) [place] % (Auto) Lymph # [place] # Seg Neutrophils % Seg Neuts % (Manual) Lymphocytes % (Manual) Seg Neutrophils # Seg Neutrophils # Man Lymphocytes # (Manual) PT INR POC ABG pH POC ABG pCO2 POC ABG pO2 Sodium Potassium Chloride Carbon Dioxide BUN Creatinine Glucose POC Glucose 211 H Lactic Acid 6.40 H* Calcium Phosphorus Magnesium Total Bilirubin AST ALT Alkaline Phosphatase Troponin T C-Reactive Protein 27.10 H Total Protein Albumin Triglycerides LDL Cholesterol Direct HDL Cholesterol Urine WBC (Auto) Urine Creatinine Fluid Total Protein Crossmatch 12/21/17 12/21/17 12/21/17 09:35 10:27 11:57 WBC RBC Hgb Hct MCV MCH RDW Plt Count Lymph % (Auto) [place] % (Auto) Lymph # [place] # Seg Neutrophils % Seg Neuts % (Manual) Lymphocytes % (Manual) Seg Neutrophils # Seg Neutrophils # Man Lymphocytes # (Manual) PT INR POC ABG pH POC ABG pCO2 POC ABG pO2 Sodium Potassium Chloride Carbon Dioxide BUN Creatinine Glucose POC Glucose 182 H 142 H 134 H Lactic Acid Calcium Phosphorus Magnesium Total Bilirubin AST ALT Alkaline Phosphatase Troponin T C-Reactive Protein Total Protein Albumin Triglycerides LDL Cholesterol Direct HDL Cholesterol Urine WBC (Auto) Urine Creatinine Fluid Total Protein Crossmatch 12/21/17 12/21/17 12/21/17 13:27 15:20 17:39 WBC RBC Hgb Hct MCV MCH RDW Plt Count Lymph % (Auto) [place] % (Auto) Lymph # [place] # Seg Neutrophils % Seg Neuts % (Manual) Lymphocytes % (Manual) Seg Neutrophils # Seg Neutrophils # Man Lymphocytes # (Manual) PT INR POC ABG pH POC ABG pCO2 POC ABG pO2 Sodium Potassium Chloride Carbon Dioxide BUN Creatinine Glucose POC Glucose 161 H 189 H Lactic Acid Calcium Phosphorus Magnesium Total Bilirubin AST ALT Alkaline Phosphatase Troponin T 0.087 H C-Reactive Protein Total Protein Albumin Triglycerides 202 H LDL Cholesterol Direct 6 L HDL Cholesterol 10 L Urine WBC (Auto) Urine Creatinine Fluid Total Protein Crossmatch 12/21/17 12/21/17 12/21/17 17:47 19:32 20:56 WBC RBC Hgb Hct MCV MCH RDW Plt Count Lymph % (Auto) [place] % (Auto) Lymph # [place] # Seg Neutrophils % Seg Neuts % (Manual) Lymphocytes % (Manual) Seg Neutrophils # Seg Neutrophils # Man Lymphocytes # (Manual) PT INR POC ABG pH POC ABG pCO2 POC ABG pO2 Sodium Potassium Chloride 107.2 H Carbon Dioxide 14 L BUN 32 H Creatinine 2.4 H Glucose 171 H POC Glucose 160 H 136 H Lactic Acid Calcium 6.6 L Phosphorus Magnesium Total Bilirubin AST ALT Alkaline Phosphatase Troponin T C-Reactive Protein Total Protein Albumin Triglycerides LDL Cholesterol Direct HDL Cholesterol Urine WBC (Auto) Urine Creatinine Fluid Total Protein Crossmatch 12/21/17 12/22/17 12/22/17 21:12 00:29 03:08 WBC RBC Hgb Hct MCV MCH RDW Plt Count Lymph % (Auto) [place] % (Auto) Lymph # [place] # Seg Neutrophils % Seg Neuts % (Manual) Lymphocytes % (Manual) Seg Neutrophils # Seg Neutrophils # Man Lymphocytes # (Manual) PT INR POC ABG pH 7.152 L 7.241 L POC ABG pCO2 28.1 L POC ABG pO2 62 L 113 H Sodium Potassium Chloride Carbon Dioxide BUN Creatinine Glucose POC Glucose 109 H Lactic Acid Calcium Phosphorus Magnesium Total Bilirubin AST ALT Alkaline Phosphatase Troponin T C-Reactive Protein Total Protein Albumin Triglycerides LDL Cholesterol Direct HDL Cholesterol Urine WBC (Auto) Urine Creatinine Fluid Total Protein Crossmatch 12/22/17 12/22/17 12/22/17 04:29 04:30 04:30 WBC 21.9 H RBC Hgb Hct MCV 77 L MCH 25 L RDW 16.6 H Plt Count 57 L Lymph % (Auto) [place] % (Auto) Lymph # [place] # Seg Neutrophils % Seg Neuts % (Manual) Lymphocytes % (Manual) Seg Neutrophils # Seg Neutrophils # Man Lymphocytes # (Manual) PT INR POC ABG pH POC ABG pCO2 POC ABG pO2 Sodium Potassium Chloride Carbon Dioxide 14 L BUN 37 H Creatinine 2.7 H Glucose 145 H POC Glucose 139 H Lactic Acid Calcium 6.4 L Phosphorus Magnesium Total Bilirubin AST ALT Alkaline Phosphatase Troponin T C-Reactive Protein Total Protein Albumin Triglycerides LDL Cholesterol Direct HDL Cholesterol Urine WBC (Auto) Urine Creatinine Fluid Total Protein Crossmatch 12/22/17 12/22/17 12/22/17 04:30 05:24 05:54 WBC RBC Hgb Hct MCV MCH RDW Plt Count Lymph % (Auto) [place] % (Auto) Lymph # [place] # Seg Neutrophils % Seg Neuts % (Manual) Lymphocytes % (Manual) Seg Neutrophils # Seg Neutrophils # Man Lymphocytes # (Manual) PT INR POC ABG pH POC ABG pCO2 POC ABG pO2 Sodium Potassium Chloride Carbon Dioxide BUN Creatinine Glucose POC Glucose 144 H 145 H Lactic Acid 3.30 H* Calcium Phosphorus Magnesium Total Bilirubin AST ALT Alkaline Phosphatase Troponin T C-Reactive Protein Total Protein Albumin Triglycerides LDL Cholesterol Direct HDL Cholesterol Urine WBC (Auto) Urine Creatinine Fluid Total Protein Crossmatch 12/22/17 12/22/17 12/22/17 07:56 07:56 10:09 WBC RBC Hgb Hct MCV MCH RDW Plt Count Lymph % (Auto) [place] % (Auto) Lymph # [place] # Seg Neutrophils % Seg Neuts % (Manual) Lymphocytes % (Manual) Seg Neutrophils # Seg Neutrophils # Man Lymphocytes # (Manual) PT INR POC ABG pH 7.180 L POC ABG pCO2 POC ABG pO2 117 H Sodium Potassium Chloride Carbon Dioxide 14 L BUN 39 H Creatinine 2.9 H Glucose 174 H POC Glucose Lactic Acid 3.00 H* Calcium 6.7 L Phosphorus Magnesium Total Bilirubin AST ALT Alkaline Phosphatase Troponin T C-Reactive Protein Total Protein Albumin Triglycerides LDL Cholesterol Direct HDL Cholesterol Urine WBC (Auto) Urine Creatinine Fluid Total Protein Crossmatch 12/22/17 12/22/17 12/22/17 10:12 12:19 14:23 WBC RBC Hgb Hct MCV MCH RDW Plt Count Lymph % (Auto) [place] % (Auto) Lymph # [place] # Seg Neutrophils % Seg Neuts % (Manual) Lymphocytes % (Manual) Seg Neutrophils # Seg Neutrophils # Man Lymphocytes # (Manual) PT INR POC ABG pH 7.241 L 7.285 L POC ABG pCO2 33.9 L 29.9 L POC ABG pO2 45 L 117 H Sodium Potassium Chloride Carbon Dioxide BUN Creatinine Glucose POC Glucose 185 H Lactic Acid Calcium Phosphorus Magnesium Total Bilirubin AST ALT Alkaline Phosphatase Troponin T C-Reactive Protein Total Protein Albumin Triglycerides LDL Cholesterol Direct HDL Cholesterol Urine WBC (Auto) Urine Creatinine Fluid Total Protein Crossmatch 12/22/17 12/22/17 12/22/17 14:27 17:22 19:58 WBC RBC Hgb Hct MCV MCH RDW Plt Count Lymph % (Auto) [place] % (Auto) Lymph # [place] # Seg Neutrophils % Seg Neuts % (Manual) Lymphocytes % (Manual) Seg Neutrophils # Seg Neutrophils # Man Lymphocytes # (Manual) PT INR POC ABG pH 7.338 L POC ABG pCO2 27.6 L POC ABG pO2 167 H Sodium Potassium Chloride Carbon Dioxide BUN Creatinine Glucose POC Glucose 220 H 197 H Lactic Acid Calcium Phosphorus Magnesium Total Bilirubin AST ALT Alkaline Phosphatase Troponin T C-Reactive Protein Total Protein Albumin Triglycerides LDL Cholesterol Direct HDL Cholesterol Urine WBC (Auto) Urine Creatinine Fluid Total Protein Crossmatch 12/22/17 12/23/17 12/23/17 21:18 05:30 05:30 WBC 14.5 H RBC Hgb Hct MCV 75 L MCH 26 L RDW 16.7 H Plt Count 26 L Lymph % (Auto) [place] % (Auto) Lymph # [place] # Seg Neutrophils % Seg Neuts % (Manual) Lymphocytes % (Manual) Seg Neutrophils # Seg Neutrophils # Man Lymphocytes # (Manual) PT INR POC ABG pH POC ABG pCO2 POC ABG pO2 Sodium Potassium Chloride Carbon Dioxide 15 L BUN 49 H Creatinine 3.5 H Glucose 123 H POC Glucose 189 H Lactic Acid Calcium 6.7 L Phosphorus Magnesium Total Bilirubin 3.60 H AST 93 H ALT 58 H Alkaline Phosphatase Troponin T C-Reactive Protein Total Protein 4.5 L Albumin 2.0 L Triglycerides LDL Cholesterol Direct HDL Cholesterol Urine WBC (Auto) Urine Creatinine Fluid Total Protein Crossmatch 12/23/17 12/23/17 12/23/17 05:30 12:31 15:13 WBC RBC Hgb Hct MCV MCH RDW Plt Count Lymph % (Auto) [place] % (Auto) Lymph # [place] # Seg Neutrophils % Seg Neuts % (Manual) Lymphocytes % (Manual) Seg Neutrophils # Seg Neutrophils # Man Lymphocytes # (Manual) PT INR POC ABG pH POC ABG pCO2 POC ABG pO2 Sodium Potassium Chloride Carbon Dioxide BUN Creatinine Glucose POC Glucose 141 H Lactic Acid Calcium Phosphorus Magnesium Total Bilirubin AST ALT Alkaline Phosphatase Troponin T C-Reactive Protein 38.70 H Total Protein Albumin Triglycerides LDL Cholesterol Direct HDL Cholesterol Urine WBC (Auto) Urine Creatinine 65.1 H Fluid Total Protein Crossmatch 12/23/17 12/24/17 12/24/17 18:53 00:13 05:15 WBC 14.7 H RBC Hgb Hct MCV 76 L MCH 25 L RDW 16.6 H Plt Count 20 L Lymph % (Auto) [place] % (Auto) Lymph # [place] # Seg Neutrophils % Seg Neuts % (Manual) Lymphocytes % (Manual) Seg Neutrophils # Seg Neutrophils # Man Lymphocytes # (Manual) PT INR POC ABG pH POC ABG pCO2 POC ABG pO2 Sodium Potassium Chloride Carbon Dioxide BUN Creatinine Glucose POC Glucose 205 H 207 H Lactic Acid Calcium Phosphorus Magnesium Total Bilirubin AST ALT Alkaline Phosphatase Troponin T C-Reactive Protein Total Protein Albumin Triglycerides LDL Cholesterol Direct HDL Cholesterol Urine WBC (Auto) Urine Creatinine Fluid Total Protein Crossmatch 12/24/17 12/24/17 12/24/17 05:15 05:51 08:31 WBC RBC Hgb Hct MCV MCH RDW Plt Count Lymph % (Auto) [place] % (Auto) Lymph # [place] # Seg Neutrophils % Seg Neuts % (Manual) Lymphocytes % (Manual) Seg Neutrophils # Seg Neutrophils # Man Lymphocytes # (Manual) PT INR POC ABG pH POC ABG pCO2 POC ABG pO2 Sodium Potassium Chloride 107.2 H Carbon Dioxide 19 L BUN 67 H Creatinine 4.0 H Glucose 150 H POC Glucose 176 H 251 H Lactic Acid Calcium 7.2 L Phosphorus Magnesium Total Bilirubin 5.60 H AST 47 H ALT Alkaline Phosphatase Troponin T C-Reactive Protein Total Protein 4.3 L Albumin 1.9 L Triglycerides LDL Cholesterol Direct HDL Cholesterol Urine WBC (Auto) Urine Creatinine Fluid Total Protein Crossmatch 12/24/17 12/24/17 12/24/17 11:53 17:19 21:16 WBC RBC Hgb Hct MCV MCH RDW Plt Count Lymph % (Auto) [place] % (Auto) Lymph # [place] # Seg Neutrophils % Seg Neuts % (Manual) Lymphocytes % (Manual) Seg Neutrophils # Seg Neutrophils # Man Lymphocytes # (Manual) PT INR POC ABG pH POC ABG pCO2 POC ABG pO2 Sodium Potassium Chloride Carbon Dioxide BUN Creatinine Glucose POC Glucose 274 H 302 H 345 H Lactic Acid Calcium Phosphorus Magnesium Total Bilirubin AST ALT Alkaline Phosphatase Troponin T C-Reactive Protein Total Protein Albumin Triglycerides LDL Cholesterol Direct HDL Cholesterol Urine WBC (Auto) Urine Creatinine Fluid Total Protein Crossmatch 12/25/17 12/25/17 12/25/17 05:55 05:55 05:55 WBC 13.7 H RBC Hgb Hct 30.2 L MCV 75 L MCH 25 L RDW 17.2 H Plt Count 24 L Lymph % (Auto) [place] % (Auto) Lymph # [place] # Seg Neutrophils % Seg Neuts % (Manual) 85.0 H Lymphocytes % (Manual) 3.0 L Seg Neutrophils # Seg Neutrophils # Man 11.6 H Lymphocytes # (Manual) 0.4 L PT INR POC ABG pH POC ABG pCO2 POC ABG pO2 Sodium Potassium 3.5 L Chloride Carbon Dioxide BUN 81 H Creatinine 3.9 H Glucose 471 H POC Glucose Lactic Acid Calcium 7.5 L Phosphorus Magnesium Total Bilirubin 7.70 H AST ALT Alkaline Phosphatase 234 H Troponin T C-Reactive Protein 19.90 H Total Protein 4.9 L Albumin 1.6 L Triglycerides LDL Cholesterol Direct HDL Cholesterol Urine WBC (Auto) Urine Creatinine Fluid Total Protein Crossmatch 12/25/17 12/25/17 12/25/17 08:21 09:41 12:14 WBC RBC Hgb Hct MCV MCH RDW Plt Count Lymph % (Auto) [place] % (Auto) Lymph # [place] # Seg Neutrophils % Seg Neuts % (Manual) Lymphocytes % (Manual) Seg Neutrophils # Seg Neutrophils # Man Lymphocytes # (Manual) PT INR POC ABG pH POC ABG pCO2 POC ABG pO2 Sodium Potassium Chloride Carbon Dioxide BUN Creatinine Glucose POC Glucose 468 H 405 H Lactic Acid 2.10 H* Calcium Phosphorus Magnesium Total Bilirubin AST ALT Alkaline Phosphatase Troponin T C-Reactive Protein Total Protein Albumin Triglycerides LDL Cholesterol Direct HDL Cholesterol Urine WBC (Auto) Urine Creatinine Fluid Total Protein Crossmatch 12/25/17 12/25/17 12/26/17 16:13 21:46 06:54 WBC 16.6 H RBC Hgb 10.0 L Hct 29.3 L MCV 74 L MCH 25 L RDW 16.5 H Plt Count 27 L Lymph % (Auto) [place] % (Auto) Lymph # [place] # Seg Neutrophils % Seg Neuts % (Manual) Lymphocytes % (Manual) Seg Neutrophils # Seg Neutrophils # Man Lymphocytes # (Manual) PT INR POC ABG pH POC ABG pCO2 POC ABG pO2 Sodium Potassium Chloride Carbon Dioxide BUN Creatinine Glucose POC Glucose 264 H 249 H Lactic Acid Calcium Phosphorus Magnesium Total Bilirubin AST ALT Alkaline Phosphatase Troponin T C-Reactive Protein Total Protein Albumin Triglycerides LDL Cholesterol Direct HDL Cholesterol Urine WBC (Auto) Urine Creatinine Fluid Total Protein Crossmatch 12/26/17 12/26/17 12/26/17 06:54 07:57 11:36 WBC RBC Hgb Hct MCV MCH RDW Plt Count Lymph % (Auto) [place] % (Auto) Lymph # [place] # Seg Neutrophils % Seg Neuts % (Manual) Lymphocytes % (Manual) Seg Neutrophils # Seg Neutrophils # Man Lymphocytes # (Manual) PT INR POC ABG pH POC ABG pCO2 POC ABG pO2 Sodium Potassium 3.0 L Chloride 97.7 L Carbon Dioxide 32 H BUN 78 H Creatinine 3.8 H Glucose 353 H POC Glucose 384 H 274 H Lactic Acid Calcium 7.2 L Phosphorus Magnesium Total Bilirubin 6.00 H AST 50 H ALT Alkaline Phosphatase 265 H Troponin T C-Reactive Protein Total Protein 4.8 L Albumin 1.4 L Triglycerides LDL Cholesterol Direct HDL Cholesterol Urine WBC (Auto) Urine Creatinine Fluid Total Protein Crossmatch 12/26/17 12/26/17 12/27/17 18:33 21:21 02:04 WBC RBC Hgb Hct MCV MCH RDW Plt Count Lymph % (Auto) [place] % (Auto) Lymph # [place] # Seg Neutrophils % Seg Neuts % (Manual) Lymphocytes % (Manual) Seg Neutrophils # Seg Neutrophils # Man Lymphocytes # (Manual) PT INR POC ABG pH POC ABG pCO2 POC ABG pO2 Sodium Potassium Chloride Carbon Dioxide BUN Creatinine Glucose POC Glucose 198 H 182 H 200 H Lactic Acid Calcium Phosphorus Magnesium Total Bilirubin AST ALT Alkaline Phosphatase Troponin T C-Reactive Protein Total Protein Albumin Triglycerides LDL Cholesterol Direct HDL Cholesterol Urine WBC (Auto) Urine Creatinine Fluid Total Protein Crossmatch 12/27/17 12/27/17 12/27/17 04:07 05:24 06:40 WBC 16.8 H RBC Hgb 9.7 L Hct 29.5 L MCV 74 L MCH 24 L RDW 16.9 H Plt Count 43 L Lymph % (Auto) [place] % (Auto) Lymph # [place] # Seg Neutrophils % Seg Neuts % (Manual) Lymphocytes % (Manual) Seg Neutrophils # Seg Neutrophils # Man Lymphocytes # (Manual) PT INR POC ABG pH 7.599 H POC ABG pCO2 POC ABG pO2 108 H Sodium Potassium Chloride Carbon Dioxide BUN Creatinine Glucose POC Glucose 156 H Lactic Acid Calcium Phosphorus Magnesium Total Bilirubin AST ALT Alkaline Phosphatase Troponin T C-Reactive Protein Total Protein Albumin Triglycerides LDL Cholesterol Direct HDL Cholesterol Urine WBC (Auto) Urine Creatinine Fluid Total Protein Crossmatch 12/27/17 12/27/17 12/27/17 06:40 11:03 15:50 WBC RBC Hgb Hct MCV MCH RDW Plt Count Lymph % (Auto) [place] % (Auto) Lymph # [place] # Seg Neutrophils % Seg Neuts % (Manual) Lymphocytes % (Manual) Seg Neutrophils # Seg Neutrophils # Man Lymphocytes # (Manual) PT INR POC ABG pH POC ABG pCO2 POC ABG pO2 Sodium Potassium 3.5 L Chloride Carbon Dioxide 36 H BUN 81 H Creatinine 3.8 H Glucose 153 H POC Glucose 220 H 275 H Lactic Acid Calcium 7.6 L Phosphorus Magnesium Total Bilirubin AST ALT Alkaline Phosphatase Troponin T C-Reactive Protein Total Protein Albumin Triglycerides LDL Cholesterol Direct HDL Cholesterol Urine WBC (Auto) Urine Creatinine Fluid Total Protein Crossmatch 12/27/17 12/27/17 12/28/17 17:23 21:44 02:05 WBC RBC Hgb Hct MCV MCH RDW Plt Count Lymph % (Auto) [place] % (Auto) Lymph # [place] # Seg Neutrophils % Seg Neuts % (Manual) Lymphocytes % (Manual) Seg Neutrophils # Seg Neutrophils # Man Lymphocytes # (Manual) PT INR POC ABG pH POC ABG pCO2 POC ABG pO2 Sodium Potassium Chloride Carbon Dioxide BUN Creatinine Glucose POC Glucose 256 H 180 H 148 H Lactic Acid Calcium Phosphorus Magnesium Total Bilirubin AST ALT Alkaline Phosphatase Troponin T C-Reactive Protein Total Protein Albumin Triglycerides LDL Cholesterol Direct HDL Cholesterol Urine WBC (Auto) Urine Creatinine Fluid Total Protein Crossmatch 12/28/17 12/28/17 12/28/17 04:45 05:00 08:14 WBC RBC Hgb Hct MCV MCH RDW Plt Count Lymph % (Auto) [place] % (Auto) Lymph # [place] # Seg Neutrophils % Seg Neuts % (Manual) Lymphocytes % (Manual) Seg Neutrophils # Seg Neutrophils # Man Lymphocytes # (Manual) PT INR POC ABG pH POC ABG pCO2 POC ABG pO2 Sodium 147 H Potassium 3.3 L Chloride Carbon Dioxide 32 H BUN 82 H Creatinine 3.9 H Glucose 212 H POC Glucose 205 H 180 H Lactic Acid Calcium 7.6 L Phosphorus Magnesium Total Bilirubin AST ALT Alkaline Phosphatase Troponin T C-Reactive Protein Total Protein Albumin Triglycerides LDL Cholesterol Direct HDL Cholesterol Urine WBC (Auto) Urine Creatinine Fluid Total Protein Crossmatch 12/28/17 12/28/17 12/28/17 12:07 13:16 16:28 WBC RBC Hgb Hct MCV MCH RDW Plt Count Lymph % (Auto) [place] % (Auto) Lymph # [place] # Seg Neutrophils % Seg Neuts % (Manual) Lymphocytes % (Manual) Seg Neutrophils # Seg Neutrophils # Man Lymphocytes # (Manual) PT 16.4 H INR 1.25 H POC ABG pH POC ABG pCO2 POC ABG pO2 Sodium Potassium Chloride Carbon Dioxide BUN Creatinine Glucose POC Glucose 213 H 126 H Lactic Acid Calcium Phosphorus Magnesium Total Bilirubin AST ALT Alkaline Phosphatase Troponin T C-Reactive Protein Total Protein Albumin Triglycerides LDL Cholesterol Direct HDL Cholesterol Urine WBC (Auto) Urine Creatinine Fluid Total Protein Crossmatch 12/28/17 12/29/17 12/29/17 21:41 06:36 10:02 WBC 17.1 H RBC Hgb 9.3 L Hct 28.5 L MCV 76 L MCH 25 L RDW 17.2 H Plt Count 107 L D Lymph % (Auto) 6.8 L [place] % (Auto) 7.4 H Lymph # [place] # 1.3 H Seg Neutrophils % 85.0 H Seg Neuts % (Manual) Lymphocytes % (Manual) Seg Neutrophils # 14.5 H Seg Neutrophils # Man Lymphocytes # (Manual) PT INR POC ABG pH POC ABG pCO2 POC ABG pO2 Sodium Potassium Chloride Carbon Dioxide BUN Creatinine Glucose POC Glucose 201 H 243 H Lactic Acid Calcium Phosphorus Magnesium Total Bilirubin AST ALT Alkaline Phosphatase Troponin T C-Reactive Protein Total Protein Albumin Triglycerides LDL Cholesterol Direct HDL Cholesterol Urine WBC (Auto) Urine Creatinine Fluid Total Protein Crossmatch 12/29/17 12/29/17 12/29/17 10:02 11:49 15:45 WBC RBC Hgb Hct MCV MCH RDW Plt Count Lymph % (Auto) [place] % (Auto) Lymph # [place] # Seg Neutrophils % Seg Neuts % (Manual) Lymphocytes % (Manual) Seg Neutrophils # Seg Neutrophils # Man Lymphocytes # (Manual) PT INR POC ABG pH POC ABG pCO2 POC ABG pO2 Sodium 151 H Potassium 3.3 L Chloride 108.8 H Carbon Dioxide BUN 81 H Creatinine 3.8 H Glucose 166 H POC Glucose 207 H Lactic Acid Calcium 7.7 L Phosphorus Magnesium Total Bilirubin 2.40 H AST 48 H ALT Alkaline Phosphatase 239 H Troponin T C-Reactive Protein Total Protein 5.5 L Albumin 1.7 L Triglycerides LDL Cholesterol Direct HDL Cholesterol Urine WBC (Auto) Urine Creatinine Fluid Total Protein < 3.0 L Crossmatch 12/29/17 12/29/17 12/30/17 17:33 22:21 01:08 WBC RBC Hgb Hct MCV MCH RDW Plt Count Lymph % (Auto) [place] % (Auto) Lymph # [place] # Seg Neutrophils % Seg Neuts % (Manual) Lymphocytes % (Manual) Seg Neutrophils # Seg Neutrophils # Man Lymphocytes # (Manual) PT INR POC ABG pH POC ABG pCO2 POC ABG pO2 Sodium Potassium Chloride Carbon Dioxide BUN Creatinine Glucose POC Glucose 110 H 242 H 161 H Lactic Acid Calcium Phosphorus Magnesium Total Bilirubin AST ALT Alkaline Phosphatase Troponin T C-Reactive Protein Total Protein Albumin Triglycerides LDL Cholesterol Direct HDL Cholesterol Urine WBC (Auto) Urine Creatinine Fluid Total Protein Crossmatch 12/30/17 12/30/17 12/30/17 05:30 05:30 05:39 WBC 16.6 H RBC 3.63 L Hgb 9.1 L Hct 26.7 L MCV 74 L MCH 25 L RDW 16.9 H Plt Count 119 L Lymph % (Auto) 7.5 L [place] % (Auto) 7.5 H Lymph # [place] # 1.2 H Seg Neutrophils % 83.5 H Seg Neuts % (Manual) Lymphocytes % (Manual) Seg Neutrophils # 13.9 H Seg Neutrophils # Man Lymphocytes # (Manual) PT INR POC ABG pH POC ABG pCO2 POC ABG pO2 Sodium 146 H Potassium 2.9 L* Chloride Carbon Dioxide BUN 80 H Creatinine 3.5 H Glucose 160 H POC Glucose 113 H Lactic Acid Calcium 7.5 L Phosphorus Magnesium Total Bilirubin 2.30 H AST 87 H ALT Alkaline Phosphatase 403 H Troponin T C-Reactive Protein Total Protein 5.1 L Albumin 1.5 L Triglycerides LDL Cholesterol Direct HDL Cholesterol Urine WBC (Auto) Urine Creatinine Fluid Total Protein Crossmatch 12/30/17 12/30/17 12/30/17 06:09 11:02 16:40 WBC RBC Hgb Hct MCV MCH RDW Plt Count Lymph % (Auto) [place] % (Auto) Lymph # [place] # Seg Neutrophils % Seg Neuts % (Manual) Lymphocytes % (Manual) Seg Neutrophils # Seg Neutrophils # Man Lymphocytes # (Manual) PT INR POC ABG pH POC ABG pCO2 POC ABG pO2 Sodium Potassium Chloride Carbon Dioxide BUN Creatinine Glucose POC Glucose 189 H 265 H 224 H Lactic Acid Calcium Phosphorus Magnesium Total Bilirubin AST ALT Alkaline Phosphatase Troponin T C-Reactive Protein Total Protein Albumin Triglycerides LDL Cholesterol Direct HDL Cholesterol Urine WBC (Auto) Urine Creatinine Fluid Total Protein Crossmatch 12/30/17 12/31/17 12/31/17 21:51 02:11 06:23 WBC RBC Hgb Hct MCV MCH RDW Plt Count Lymph % (Auto) [place] % (Auto) Lymph # [place] # Seg Neutrophils % Seg Neuts % (Manual) Lymphocytes % (Manual) Seg Neutrophils # Seg Neutrophils # Man Lymphocytes # (Manual) PT INR POC ABG pH POC ABG pCO2 POC ABG pO2 Sodium Potassium Chloride Carbon Dioxide BUN Creatinine Glucose POC Glucose 262 H 171 H 147 H Lactic Acid Calcium Phosphorus Magnesium Total Bilirubin AST ALT Alkaline Phosphatase Troponin T C-Reactive Protein Total Protein Albumin Triglycerides LDL Cholesterol Direct HDL Cholesterol Urine WBC (Auto) Urine Creatinine Fluid Total Protein Crossmatch 12/31/17 12/31/17 12/31/17 11:05 12:50 12:50 WBC 13.2 H RBC 3.28 L Hgb 8.3 L Hct 24.8 L MCV 76 L MCH 25 L RDW 17.0 H Plt Count 131 L Lymph % (Auto) 7.6 L [place] % (Auto) Lymph # 1.0 L [place] # Seg Neutrophils % 84.8 H Seg Neuts % (Manual) Lymphocytes % (Manual) Seg Neutrophils # 11.2 H Seg Neutrophils # Man Lymphocytes # (Manual) PT INR POC ABG pH POC ABG pCO2 POC ABG pO2 Sodium 147 H Potassium 3.1 L Chloride 107.9 H Carbon Dioxide BUN 74 H Creatinine 3.0 H Glucose 184 H POC Glucose 199 H Lactic Acid Calcium 7.5 L Phosphorus Magnesium Total Bilirubin 1.90 H AST 85 H ALT Alkaline Phosphatase 596 H Troponin T C-Reactive Protein Total Protein 5.6 L Albumin 1.9 L Triglycerides LDL Cholesterol Direct HDL Cholesterol Urine WBC (Auto) Urine Creatinine Fluid Total Protein Crossmatch 12/31/17 12/31/17 12/31/17 14:52 18:10 22:01 WBC RBC Hgb Hct MCV MCH RDW Plt Count Lymph % (Auto) [place] % (Auto) Lymph # [place] # Seg Neutrophils % Seg Neuts % (Manual) Lymphocytes % (Manual) Seg Neutrophils # Seg Neutrophils # Man Lymphocytes # (Manual) PT INR POC ABG pH POC ABG pCO2 POC ABG pO2 Sodium Potassium Chloride Carbon Dioxide BUN Creatinine Glucose POC Glucose 202 H 189 H 150 H Lactic Acid Calcium Phosphorus Magnesium Total Bilirubin AST ALT Alkaline Phosphatase Troponin T C-Reactive Protein Total Protein Albumin Triglycerides LDL Cholesterol Direct HDL Cholesterol Urine WBC (Auto) Urine Creatinine Fluid Total Protein Crossmatch 01/01/18 01/01/18 01/01/18 01:54 04:52 04:52 WBC 13.1 H RBC 3.17 L Hgb 7.9 L Hct 23.8 L MCV 75 L MCH 25 L RDW 16.5 H Plt Count 121 L Lymph % (Auto) [place] % (Auto) Lymph # [place] # Seg Neutrophils % Seg Neuts % (Manual) Lymphocytes % (Manual) Seg Neutrophils # Seg Neutrophils # Man Lymphocytes # (Manual) PT INR POC ABG pH POC ABG pCO2 POC ABG pO2 Sodium 151 H Potassium Chloride 116.6 H Carbon Dioxide BUN 65 H Creatinine 2.8 H Glucose 172 H POC Glucose 208 H Lactic Acid Calcium 7.5 L Phosphorus Magnesium Total Bilirubin AST ALT Alkaline Phosphatase Troponin T C-Reactive Protein Total Protein Albumin Triglycerides LDL Cholesterol Direct HDL Cholesterol Urine WBC (Auto) Urine Creatinine Fluid Total Protein Crossmatch 01/01/18 01/01/18 01/01/18 05:20 10:16 14:09 WBC RBC Hgb Hct MCV MCH RDW Plt Count Lymph % (Auto) [place] % (Auto) Lymph # [place] # Seg Neutrophils % Seg Neuts % (Manual) Lymphocytes % (Manual) Seg Neutrophils # Seg Neutrophils # Man Lymphocytes # (Manual) PT INR POC ABG pH POC ABG pCO2 POC ABG pO2 Sodium Potassium Chloride Carbon Dioxide BUN Creatinine Glucose POC Glucose 202 H 231 H 322 H Lactic Acid Calcium Phosphorus Magnesium Total Bilirubin AST ALT Alkaline Phosphatase Troponin T C-Reactive Protein Total Protein Albumin Triglycerides LDL Cholesterol Direct HDL Cholesterol Urine WBC (Auto) Urine Creatinine Fluid Total Protein Crossmatch 01/01/18 01/02/18 01/02/18 18:15 00:55 05:51 WBC RBC Hgb Hct MCV MCH RDW Plt Count Lymph % (Auto) [place] % (Auto) Lymph # [place] # Seg Neutrophils % Seg Neuts % (Manual) Lymphocytes % (Manual) Seg Neutrophils # Seg Neutrophils # Man Lymphocytes # (Manual) PT INR POC ABG pH POC ABG pCO2 POC ABG pO2 Sodium Potassium Chloride Carbon Dioxide BUN Creatinine Glucose POC Glucose 258 H 284 H 265 H Lactic Acid Calcium Phosphorus Magnesium Total Bilirubin AST ALT Alkaline Phosphatase Troponin T C-Reactive Protein Total Protein Albumin Triglycerides LDL Cholesterol Direct HDL Cholesterol Urine WBC (Auto) Urine Creatinine Fluid Total Protein Crossmatch 01/02/18 01/02/18 01/02/18 12:19 17:18 17:20 WBC RBC Hgb Hct MCV MCH RDW Plt Count Lymph % (Auto) [place] % (Auto) Lymph # [place] # Seg Neutrophils % Seg Neuts % (Manual) Lymphocytes % (Manual) Seg Neutrophils # Seg Neutrophils # Man Lymphocytes # (Manual) PT INR POC ABG pH POC ABG pCO2 POC ABG pO2 Sodium Potassium Chloride Carbon Dioxide BUN 47 H Creatinine 1.8 H Glucose 127 H POC Glucose 273 H 144 H Lactic Acid Calcium 8.0 L Phosphorus Magnesium Total Bilirubin AST ALT Alkaline Phosphatase Troponin T C-Reactive Protein Total Protein Albumin Triglycerides LDL Cholesterol Direct HDL Cholesterol Urine WBC (Auto) Urine Creatinine Fluid Total Protein Crossmatch 01/02/18 01/02/18 01/03/18 21:25 Unknown 05:50 WBC RBC Hgb Hct MCV MCH RDW Plt Count Lymph % (Auto) [place] % (Auto) Lymph # [place] # Seg Neutrophils % Seg Neuts % (Manual) Lymphocytes % (Manual) Seg Neutrophils # Seg Neutrophils # Man Lymphocytes # (Manual) PT INR POC ABG pH POC ABG pCO2 POC ABG pO2 Sodium 136 L Potassium 6.1 H* D Chloride 110.6 H Carbon Dioxide 20 L 20 L BUN 50 H 41 H Creatinine 2.1 H 1.8 H Glucose 246 H 137 H POC Glucose 133 H Lactic Acid Calcium 7.4 L 7.5 L Phosphorus Magnesium Total Bilirubin AST ALT Alkaline Phosphatase Troponin T C-Reactive Protein Total Protein Albumin Triglycerides LDL Cholesterol Direct HDL Cholesterol Urine WBC (Auto) Urine Creatinine Fluid Total Protein Crossmatch 01/03/18 01/03/18 01/03/18 06:08 12:50 16:25 WBC RBC Hgb Hct MCV MCH RDW Plt Count Lymph % (Auto) [place] % (Auto) Lymph # [place] # Seg Neutrophils % Seg Neuts % (Manual) Lymphocytes % (Manual) Seg Neutrophils # Seg Neutrophils # Man Lymphocytes # (Manual) PT INR POC ABG pH POC ABG pCO2 POC ABG pO2 Sodium Potassium Chloride Carbon Dioxide BUN Creatinine Glucose POC Glucose 151 H 137 H 200 H Lactic Acid Calcium Phosphorus Magnesium Total Bilirubin AST ALT Alkaline Phosphatase Troponin T C-Reactive Protein Total Protein Albumin Triglycerides LDL Cholesterol Direct HDL Cholesterol Urine WBC (Auto) Urine Creatinine Fluid Total Protein Crossmatch 01/03/18 01/04/18 01/04/18 19:37 06:14 12:58 WBC RBC Hgb Hct MCV MCH RDW Plt Count Lymph % (Auto) [place] % (Auto) Lymph # [place] # Seg Neutrophils % Seg Neuts % (Manual) Lymphocytes % (Manual) Seg Neutrophils # Seg Neutrophils # Man Lymphocytes # (Manual) PT INR POC ABG pH POC ABG pCO2 POC ABG pO2 Sodium Potassium Chloride Carbon Dioxide BUN Creatinine Glucose POC Glucose 172 H 139 H 219 H Lactic Acid Calcium Phosphorus Magnesium Total Bilirubin AST ALT Alkaline Phosphatase Troponin T C-Reactive Protein Total Protein Albumin Triglycerides LDL Cholesterol Direct HDL Cholesterol Urine WBC (Auto) Urine Creatinine Fluid Total Protein Crossmatch 01/04/18 01/04/18 01/04/18 13:37 21:37 Unknown WBC RBC Hgb Hct MCV MCH RDW Plt Count Lymph % (Auto) [place] % (Auto) Lymph # [place] # Seg Neutrophils % Seg Neuts % (Manual) Lymphocytes % (Manual) Seg Neutrophils # Seg Neutrophils # Man Lymphocytes # (Manual) PT INR POC ABG pH POC ABG pCO2 POC ABG pO2 Sodium Potassium Chloride 107.2 H Carbon Dioxide BUN 33 H Creatinine 1.7 H Glucose 141 H POC Glucose 258 H Lactic Acid Calcium 7.3 L Phosphorus Magnesium 1.60 L Total Bilirubin AST ALT Alkaline Phosphatase Troponin T C-Reactive Protein Total Protein Albumin Triglycerides LDL Cholesterol Direct HDL Cholesterol Urine WBC (Auto) Urine Creatinine Fluid Total Protein Crossmatch See Detail 01/04/18 01/05/18 01/05/18 Unknown 06:19 06:19 WBC RBC 2.62 L 2.84 L Hgb 6.8 L 7.6 L Hct 20.0 L 22.3 L MCV 76 L MCH 26 L 27 L RDW 17.2 H 18.1 H Plt Count Lymph % (Auto) 11.1 L 11.6 L [place] % (Auto) 9.9 H 10.5 H Lymph # 0.9 L 1.0 L [place] # 0.9 H Seg Neutrophils % 77.0 H 75.2 H Seg Neuts % (Manual) Lymphocytes % (Manual) Seg Neutrophils # Seg Neutrophils # Man Lymphocytes # (Manual) PT INR POC ABG pH POC ABG pCO2 POC ABG pO2 Sodium 136 L Potassium Chloride Carbon Dioxide 19 L BUN 26 H Creatinine 1.5 H Glucose 165 H POC Glucose Lactic Acid Calcium 7.2 L Phosphorus Magnesium Total Bilirubin AST ALT Alkaline Phosphatase Troponin T C-Reactive Protein Total Protein Albumin Triglycerides LDL Cholesterol Direct HDL Cholesterol Urine WBC (Auto) Urine Creatinine Fluid Total Protein Crossmatch 01/05/18 06:32 WBC RBC Hgb Hct MCV MCH RDW Plt Count Lymph % (Auto) [place] % (Auto) Lymph # [place] # Seg Neutrophils % Seg Neuts % (Manual) Lymphocytes % (Manual) Seg Neutrophils # Seg Neutrophils # Man Lymphocytes # (Manual) PT INR POC ABG pH POC ABG pCO2 POC ABG pO2 Sodium Potassium Chloride Carbon Dioxide BUN Creatinine Glucose POC Glucose 170 H Lactic Acid Calcium Phosphorus Magnesium Total Bilirubin AST ALT Alkaline Phosphatase Troponin T C-Reactive Protein Total Protein Albumin Triglycerides LDL Cholesterol Direct HDL Cholesterol Urine WBC (Auto) Urine Creatinine Fluid Total Protein Crossmatch
[2018-01-05] MEDS ORDERED: NORMODYNE PO SCH (22:53)
--- NOTE | 2018-01-06 07:17 | Progress Note ---
Assessment and Plan 1. Acute kidney injury: Vasomotor / hemodynamic MARLENE in the setting of septic shock. Renal function continue to improve. 2. Septic shock: In the setting of Acute pyelonephritis and E.Coli bacteremia. Improved. 3. Left hydronephrosis. 4. HTN: Will stop Amlodpine. 5. Electrolytes: Hyperkalemia, improved. Hypernatremia, improved. 6. DKA: Improved. 7. Acute Encephalopathy: Improved. 8. Thrombocytopenia: Improved. F/u with me in 1-2 weeks. Subjective Date of service: 01/06/18 Principal diagnosis: septic shock Interval history: Patient was seen and examined at the bedside. Doing ok. Objective - Vital Signs Vital signs: Vital Signs - 12hr 01/05/18 01/05/18 01/05/18 19:46 19:57 22:00 Temperature 98.5 F Pulse Rate 88 89 Pulse Rate [ From Monitor] Respiratory 16 Rate Blood Pressure 118/61 O2 Sat by Pulse 94 95 Oximetry 01/05/18 01/05/18 01/05/18 22:15 22:27 22:33 Temperature Pulse Rate 89 89 Pulse Rate [ 89 From Monitor] Respiratory 18 Rate Blood Pressure 118/61 118/61 O2 Sat by Pulse 94 Oximetry 01/05/18 01/06/18 23:52 04:16 Temperature 99.6 F 97.9 F Pulse Rate 82 75 Pulse Rate [ From Monitor] Respiratory 16 18 Rate Blood Pressure 99/55 110/58 O2 Sat by Pulse 94 93 Oximetry - General Appearance General appearance: well-developed, appears stated age, other (no distress) EENT: ATNC, PERRL, mucous membranes moist, hearing intact Neck: supple Respiratory: Present: Clear to Ascultation Cardiology: regular, S1S2, no murmurs Gastrointestinal: normoactive bowel sounds, no tenderness, obese Integumentary: warm and dry Neurologic: no focal deficit, no asterixis Musculoskeletal: other (1+ edema of both LEs noted) Psychiatric: cooperative - Lab 01/06/18 12:25 01/06/18 12:25 Most recent lab results Calcium 7.2 mg/dL (8.4-10.2) L 01/05/18 06:19 Phosphorus 3.60 mg/dL (2.5-4.5) 01/05/18 06:19 Magnesium 1.70 mg/dL (1.7-2.3) 01/05/18 06:19 Urine Creatinine 65.1 mg/dL (0.1-20.0) H 12/23/17 15:13 Urine Sodium 26 mmol/L 12/23/17 15:13
[2018-01-06] MEDS: HumuLIN R SUB-Q SCH ×3 (08:34→17:36)
[2018-01-06] MEDS: NORVASC PO SCH (09:42)
[2018-01-06] MEDS: VITAMIN B-1 PO SCH (09:51)
[2018-01-06] MEDS: PEPCID PO SCH (09:51)
[2018-01-06] MEDS: Centrum Liq PO SCH (09:51)
[2018-01-06] MEDS: FOLVITE PO SCH (09:51)
[2018-01-06] MEDS ORDERED: LEVAQUIN PO SCH (10:00)
--- NOTE | 2018-01-06 12:23 | Discharge Summary ---
Providers - Providers Date of Admission: 12/21/17 01:58 Date of discharge: 01/06/18 Attending physician: ARIELA FLORES 12/21/17 00:48 Consult to Case Management [CONS] Routine Services Needed at Discharge: Home Health Services Notified:: Tavon Larson Phone number called:: [phone] Was contact made?: Yes If yes, spoke with:: tavon Larson Time called:: 12:40 Comment:: Casserole Preparer aware of consult. 12/21/17 01:58 Consult to Physician [CONS] Routine Comment: Consulting Provider: RENETTA FRANCE Physician Instructions: Reason For Exam: cc 12/21/17 09:28 Consult to Physician [CONS] Routine Comment: Consulting Provider: JESSI MARTÍNEZ Physician Instructions: Reason For Exam: left hydronephosis/hydroureter. 12/21/17 15:39 Consult to Interventional Radiology [CONS] Routine Consulting Provider: TAMIKO SOTO Reason For Exam: LEFT HYDRONEPHROSIS, SEPTIC SHOCK Place consult to:: Interventional Radiology Notified:: Blaien Doan Phone number called:: Brand Coordinator overhead paged him to my extension Was contact made?: Yes If yes, spoke with:: Blaine Doan Time called:: 12:45 Comment:: Their services are aware of the consultation. wrote an Event Note. 12/22/17 08:52 Consult to Physician [CONS] Routine Comment: Consulting Provider: ELIAS ALCARAZ Physician Instructions: Reason For Exam: Antibiotics 12/23/17 10:13 Consult to Physician [CONS] Routine Comment: Consulting Provider: VAISHNAVI GOLDMAN Physician Instructions: Reason For Exam: [place] 12/23/17 11:35 Consult to Dietitian/Nutrition [CONS] Routine Physician Instructions: Reason For Exam: Reason for Consult: Write/Manage Tube Feeding 12/24/17 10:59 Consult to Physician [CONS] Routine Comment: Consulting Provider: CHRISTINE MCNALLY Physician Instructions: Reason For Exam: acalculus cholecystitis 12/28/17 10:35 Physical Therapy Evaluation and Treat [CONS] Routine Comment: Reason For Exam: Debility 12/28/17 18:41 Consult to Dietitian/Nutrition [CONS] Routine Physician Instructions: Assess nutrtn needs, initiate, modify, manage TF Reason For Exam: Reason for Consult: Write/Manage Tube Feeding Reason for Consult: Write/Manage Tube Feeding 01/01/18 09:51 Speech Therapy Evaluation and Treat [CONS] Routine Reason For Exam: dysphagia Primary care physician: ENGINEERING SURVEYOR Hospitalization Condition: Stable Disposition: [id number]-06 HOME UNDER HOME HL Time spent for discharge: 33 min Core Measure Documentation - Palliative Care Palliative Care/ Comfort Measures: Not Applicable - Core Measures Any of the following diagnoses?: none Exam - Constitutional Vitals: Temp Pulse Resp BP Pulse Ox 98.4 F 78 16 113/78 93 01/06/18 08:15 01/06/18 08:15 01/06/18 08:15 01/06/18 09:42 01/06/18 08:15 General appearance: Present: no acute distress, well-nourished - EENT Eyes: Present: PERRL, EOM intact - Neck Neck: Present: supple, normal ROM - Respiratory Respiratory effort: normal Respiratory: bilateral: diminished, negative: rales, rhonchi, wheezing - Cardiovascular Rhythm: regular Heart Sounds: Present: S1 & S2 - Extremities Extremities: no ischemia, No edema - Abdominal General gastrointestinal: Present: soft, non-tender, non-distended, normal bowel sounds - Integumentary Integumentary: Present: clear, warm - Musculoskeletal Musculoskeletal: strength equal bilaterally - Psychiatric Psychiatric: appropriate mood/affect, cooperative - Neurologic Neurologic: CNII-XII intact, moves all extremities Plan Activity: advance as tolerated, fall precautions Diet: diabetic Special Instructions: physical therapy Additional Instructions: Contact isolation/handwashing. Prescription for Cipro 250 mg twice a day by mouth 1 week[renal dose]. stop date 01/13/2018 Follow up with: PRIMARY CAREMD [Primary Care Provider] - 3-5 Days MARIE SANDERS MD [Staff Physician] - 7 Days RAMBO CIFUENTES MD [Staff Physician] - 7 Days Prescriptions: amLODIPine [Norvasc] 10 mg PO QDAY #30 tablet Ciprofloxacin HCl [Cipro] 250 mg PO BID #14 tablet Famotidine [Pepcid] 10 mg PO BID #20 tablet glipiZIDE [Glipizide] 5 mg PO BID #60 tablet Insulin NPH/Regular [NovoLIN 70/30] 10 unit SUB-Q BIDDIAB 30 Days units Labetalol [Normodyne TAB] 100 mg PO BID #60 tablet Thiamine [Vitamin B-1] 100 mg PO QDAY #30 tablet
[2018-01-06 13:07] LABS: Basophils # (Auto) 0.1 K/mm3 (0.0-0.1); Eosinophils # (Auto) 0.1 K/mm3 (0.0-0.4); Eosinophils % (Auto) 1.4 % (0.0-4.3); Hematocrit 24.1 % (30.3-42.9); Hemoglobin 8.1 gm/dl (10.1-14.3); Lymphocytes # (Auto) 0.9 K/mm3 (1.2-5.4); Lymphocytes % (Auto) 11.5 % (13.4-35.0); Mean Corpuscular HGB Conc 34 % (30-34); Mean Corpuscular Hemoglobin 27 pg (28-32); Mean Corpuscular Volume 80 fl (79-97); Monocytes # (Auto) 0.7 K/mm3 (0.0-0.8); Monocytes % (Auto) 9.5 % (0.0-7.3); Platelet Count 300 K/mm3 (140-440); Red Blood Count 3.03 M/mm3 (3.65-5.03); Red Cell Distribution Width 18.5 % (13.2-15.2)
[2018-01-06 13:21] LABS: Calcium 7.5 mg/dL (8.4-10.2)
[2018-01-06] MEDS ORDERED: TRIPLE ANTIBIOTIC TP ONE (15:30)
[2018-01-06 18:02] VITALS: BP 147/71
[2018-01-07 12:37] LABS: ANA Screen, IFA Negative (Negative)
== END 2018-01-06 19:50 | disposition home or self-care (01) | DRG 871 ==
LOC: ED 22:57 → CC1 12-21 01:58 → 4A 12-28 20:17 → 3A 01-06 00:59
PROVIDERS: ADMIT Internal Medicine; ATTEND Internal Medicine
PROC: 02H633Z Insertion of Infusion Device into Right Atrium, Percutaneous Approach (ICD-10-PCS; 2017-12-21)
PROC: 4A033R1 Measurement of Arterial Saturation, Peripheral, Percutaneous Approach (ICD-10-PCS; 2017-12-21)
PROC: 5A09557 Assistance with Respiratory Ventilation, Greater than 96 Consecutive Hours, Continuous Positive Airway Pressure (ICD-10-PCS; 2017-12-21)
PROC: 0W993ZZ Drainage of Right Pleural Cavity, Percutaneous Approach (ICD-10-PCS; principal; 2017-12-29)
PROC: 30233N1 Transfusion of Nonautologous Red Blood Cells into Peripheral Vein, Percutaneous Approach (ICD-10-PCS; 2018-01-04)
DX: A41.9 Sepsis, unspecified organism (principal); R65.21 Severe sepsis with septic shock; R57.1 Hypovolemic shock; G93.40 Encephalopathy, unspecified; N17.0 Acute kidney failure with tubular necrosis; E11.10 Type 2 diabetes mellitus with ketoacidosis without coma; K72.00 Acute and subacute hepatic failure without coma; J96.21 Acute and chronic respiratory failure with hypoxia; N13.30 Unspecified hydronephrosis; N10 Acute pyelonephritis; J90 Pleural effusion, not elsewhere classified; I10 Essential (primary) hypertension; M54.5 Low back pain; D69.6 Thrombocytopenia, unspecified; E66.9 Obesity, unspecified; E83.39 Other disorders of phosphorus metabolism; E83.42 Hypomagnesemia; B96.20 Unspecified Escherichia coli [E. coli] as the cause of diseases classified elsewhere; A08.4 Viral intestinal infection, unspecified; K76.0 Fatty (change of) liver, not elsewhere classified; R59.1 Generalized enlarged lymph nodes; E87.6 Hypokalemia; E87.5 Hyperkalemia; D64.9 Anemia, unspecified; Z68.31 Body mass index [BMI] 31.0-31.9, adult; Z82.49 Family history of ischemic heart disease and other diseases of the circulatory system; Z83.3 Family history of diabetes mellitus
CPT/HCPCS: 32555; 36415; 36600; 71045; 74018; 74176; 76700; 76770; 80048; 80053; 80061; 80074; 80202; 81001; 82140; 82465; 82550; 82553; 82570; 82803; 82805; 82962; 83605; 83735; 84100; 84160; 84300; 84484; 85007; 85025; 85027; 85610; 86021; 86022; 86038; 86140; 86850; 86900; 86901; 86920; 87040; 87045; 87076; 87086; 87116; 87186; 87324; 88112; 88305; 88341; 88342; 89051; 93005; 93010; 94660; 94760; 96361; 96365; 96366; 96375; A6250; J0692; J1120; J1815; J2060; J2185; J2270; J2405; J2543; J3370; J3475; J3480; J7030; J7040; J7050; J7070; P9016